=== PATIENT | female | born 1945 | race Caucasian/White ===

== ENCOUNTER → 2023-03-13 | Outpatient (REF) | payer MEDICARE, BC, SELFPAY ==
[2023-03-13 09:17] LABS: Hematocrit 35.6 % (37-47); Hemoglobin 11.3 g/dL (12.0-15.0); Mean Corp Hgb Conc 31.7 g/dL (32-36); Mean Corpuscular Hgb 30.3 pg (27.0-32.0); Mean Corpuscular Volume 95.4 fL (81-99); Mean Platelet Vol. 9.8 fl (6.2-12.0); Platelet Count 151 K/mm3 (150-450); RBC Distribution Width SD 49.2 fl (35.1-43.9); Red Blood Count 3.73 M/mm3 (4.2-5.4); White Blood Count 5.1 K/mm3 (4.4-11.0)
[2023-03-13 09:27] LABS: Anion Gap 4 (5-15); BUN 36 mg/dL (7-18); BUN/Creat Ratio 31.3 RATIO (10-20); Calcium,Total 8.9 mg/dL (8.5-10.1); Chloride 109 mmol/L (98-107); Creatinine, Serum 1.15 mg/dL (0.55-1.02); EST Glomerular Filtration Rate 48 mL/min (>60); Est Glom Filt Rate - Afr Amer 58 mL/min (>60); Glucose 96 mg/dL (74-106); Potassium 3.3 mmol/L (3.5-5.1); Sodium Level 143 mmol/L (136-145)
== END ==
LOC: OLS.SANC 04:00
PROVIDERS: PCP Internal Medicine; Referring Provider Internal Medicine; Visit Provider Internal Medicine
DX: I10 Essential (primary) hypertension (principal); E78.5 Hyperlipidemia, unspecified
CPT/HCPCS: 36415; 80048; 85027

== ENCOUNTER → 2023-03-20 | Outpatient (REF) | payer MEDICARE, BC, SELFPAY ==
[2023-03-20 09:37] LABS: Hematocrit 34.8 % (37-47); Hemoglobin 11.2 g/dL (12.0-15.0); Mean Corp Hgb Conc 32.2 g/dL (32-36); Mean Corpuscular Hgb 30.9 pg (27.0-32.0); Mean Corpuscular Volume 95.9 fL (81-99); Mean Platelet Vol. 9.5 fl (6.2-12.0); Platelet Count 157 K/mm3 (150-450); RBC Distribution Width CV 13.9 % (11.6-14.6); RBC Distribution Width SD 49.2 fl (35.1-43.9); Red Blood Count 3.63 M/mm3 (4.2-5.4); White Blood Count 4.9 K/mm3 (4.4-11.0)
[2023-03-20 09:56] LABS: Anion Gap 2 (5-15); BUN 27 mg/dL (7-18); BUN/Creat Ratio 24.5 RATIO (10-20); Chloride 110 mmol/L (98-107); EST Glomerular Filtration Rate 51 mL/min (>60); Est Glom Filt Rate - Afr Amer 61 mL/min (>60); Glucose 83 mg/dL (74-106); Potassium 3.4 mmol/L (3.5-5.1); Sodium Level 142 mmol/L (136-145)
== END ==
LOC: OLS.SANC 05:00
PROVIDERS: Visit Provider Internal Medicine
DX: I10 Essential (primary) hypertension (principal); E87.6 Hypokalemia
CPT/HCPCS: 36415; 80048; 85027

== ENCOUNTER → 2023-03-27 | Outpatient (REF) | payer MEDICARE, BC, SELFPAY ==
[2023-03-27 08:53] LABS: Hematocrit 35.4 % (37-47); Hemoglobin 11.4 g/dL (12.0-15.0); Mean Corp Hgb Conc 32.2 g/dL (32-36); Mean Corpuscular Hgb 31.1 pg (27.0-32.0); Mean Corpuscular Volume 96.7 fL (81-99); Mean Platelet Vol. 9.7 fl (6.2-12.0); Platelet Count 162 K/mm3 (150-450); RBC Distribution Width SD 49.5 fl (35.1-43.9); Red Blood Count 3.66 M/mm3 (4.2-5.4); White Blood Count 4.9 K/mm3 (4.4-11.0)
[2023-03-27 09:04] LABS: Anion Gap 1 (5-15); BUN 22 mg/dL (7-18); BUN/Creat Ratio 21.8 RATIO (10-20); Calcium,Total 8.9 mg/dL (8.5-10.1); Chloride 110 mmol/L (98-107); Creatinine, Serum 1.01 mg/dL (0.55-1.02); EST Glomerular Filtration Rate 56 mL/min (>60); Est Glom Filt Rate - Afr Amer 68 mL/min (>60); Glucose 88 mg/dL (74-106); Potassium 3.4 mmol/L (3.5-5.1); Sodium Level 143 mmol/L (136-145)
== END ==
LOC: OLS.SANC 05:00
PROVIDERS: Visit Provider Internal Medicine
DX: I10 Essential (primary) hypertension (principal); E78.5 Hyperlipidemia, unspecified; Z79.899 Other long term (current) drug therapy
CPT/HCPCS: 36415; 80048; 85027

== ENCOUNTER → 2023-03-31 | Outpatient (REF) | payer MEDICARE, BC, SELFPAY ==
[2023-03-31 09:10] LABS: Color, Urine Yellow (Yellow); Glucose, Dipstick Normal (Normal); Ketone-Dipstick Negative (Negative); Leukocyte Esterase-Dipstick 100 /ul (Negative); Nitrite-Dipstick Positive (Negative); Occult Blood-Urine Negative /ul (Negative); Protein-Dipstick Negative (Negative); Urine Bilirubin Dipstick Negative (Negative); Urine Clarity Clear (Clear); Urine Urobilinogen Normal (Normal)
== END ==
LOC: OLS.SANC 08:55
PROVIDERS: Referring Provider Internal Medicine; Visit Provider Internal Medicine
DX: R39.9 Unspecified symptoms and signs involving the genitourinary system (principal)
CPT/HCPCS: 81002; 87077; 87086; 87088; 87186

== ENCOUNTER → 2023-04-16 | Outpatient (REF) | payer MEDICARE, BC, SELFPAY ==
[2023-04-16 08:50] LABS: Bacteria 0 SEEN /hpf (None Seen); Mucous, Urine 0 SEEN /hpf (<or=2+); Red Blood Cells-Urine 0 SEEN /hpf (0-5); Squamous Epithelial Cells - UA 0 SEEN /hpf (5-10); White Blood Cells 0 SEEN /hpf (0-5)
[2023-04-16 09:06] LABS: Color, Urine Yellow (Yellow); Glucose, Dipstick Normal (Normal); Ketone-Dipstick Negative (Negative); Leukocyte Esterase-Dipstick Negative /ul (Negative); Nitrite-Dipstick Negative (Negative); Occult Blood-Urine Negative /ul (Negative); Protein-Dipstick Negative (Negative); Urine Bilirubin Dipstick Negative (Negative); Urine Clarity Clear (Clear); Urine Urobilinogen Normal (Normal)
== END ==
LOC: OLS.SANC 05:00
PROVIDERS: Visit Provider Internal Medicine
DX: R39.9 Unspecified symptoms and signs involving the genitourinary system (principal)
CPT/HCPCS: 81001; 87086

== ENCOUNTER → 2023-06-26 | Outpatient (REF) | payer MEDICARE, BC, SELFPAY ==
[2023-06-26 08:42] LABS: Hematocrit 34.4 % (37-47); Hemoglobin 11.1 g/dL (12.0-15.0); Mean Corp Hgb Conc 32.3 g/dL (32-36); Mean Corpuscular Hgb 30.1 pg (27.0-32.0); Mean Corpuscular Volume 93.2 fL (81-99); Mean Platelet Vol. 9.8 fl (6.2-12.0); Platelet Count 175 K/mm3 (150-450); RBC Distribution Width CV 13.5 % (11.6-14.6); Red Blood Count 3.69 M/mm3 (4.2-5.4); White Blood Count 5.7 K/mm3 (4.4-11.0)
[2023-06-26 08:56] LABS: Anion Gap 3 (5-15); BUN 30 mg/dL (7-18); BUN/Creat Ratio 28.3 RATIO (10-20); Calcium,Total 8.9 mg/dL (8.5-10.1); Chloride 110 mmol/L (98-107); Creatinine, Serum 1.06 mg/dL (0.55-1.02); EST Glomerular Filtration Rate 53 mL/min (>60); Est Glom Filt Rate - Afr Amer 64 mL/min (>60); Glucose 89 mg/dL (74-106); Potassium 3.4 mmol/L (3.5-5.1); Sodium Level 143 mmol/L (136-145)
== END ==
LOC: OLS.SANC 05:00
PROVIDERS: Visit Provider Internal Medicine
DX: I10 Essential (primary) hypertension (principal); E78.5 Hyperlipidemia, unspecified
CPT/HCPCS: 36415; 80048; 85027

== ENCOUNTER → 2023-07-02 | Outpatient (REF) | payer MEDICARE, BC, SELFPAY ==
[2023-07-03 07:25] LABS: Color, Urine Yellow (Yellow); Glucose, Dipstick Normal (Normal); Ketone-Dipstick Negative (Negative); Leukocyte Esterase-Dipstick 500 /ul (Negative); Nitrite-Dipstick Negative (Negative); Occult Blood-Urine 10 /ul (Negative); Protein-Dipstick Negative (Negative); Specific Gravity, Urine 1.015 (1.002-1.030); Urine Bilirubin Dipstick Negative (Negative); Urine Clarity Sl. Cloudy (Clear); Urine Urobilinogen Normal (Normal)
== END ==
LOC: OLS.SANC 07:20
PROVIDERS: Visit Provider Internal Medicine
DX: R39.0 Extravasation of urine (principal)
CPT/HCPCS: 81002; 87077; 87086; 87088; 87186

== ENCOUNTER → 2023-10-24 | Outpatient (REF) | payer MEDICARE, SELFPAY ==
[2023-10-24 08:12] LABS: Hematocrit 38.4 % (37-47); Hemoglobin 12.2 g/dL (12.0-15.0); Mean Corp Hgb Conc 31.8 g/dL (32-36); Mean Corpuscular Volume 94.3 fL (81-99); Mean Platelet Vol. 9.6 fl (6.2-12.0); Platelet Count 177 K/mm3 (150-450); RBC Distribution Width CV 13.3 % (11.6-14.6); RBC Distribution Width SD 45.6 fl (35.1-43.9); Red Blood Count 4.07 M/mm3 (4.2-5.4); White Blood Count 4.9 K/mm3 (4.4-11.0)
[2023-10-24 08:39] LABS: Anion Gap 4 (5-15); BUN 32 mg/dL (7-18); BUN/Creat Ratio 33.9 RATIO (10-20); Chloride 108 mmol/L (98-107); Creatinine, Serum 0.94 mg/dL (0.55-1.02); EST Glomerular Filtration Rate 60 mL/min (>60); Est Glom Filt Rate - Afr Amer 73 mL/min (>60); Glucose 92 mg/dL (74-106); Potassium 3.4 mmol/L (3.5-5.1); Sodium Level 143 mmol/L (136-145)
== END ==
LOC: OLS.SANC 05:00
PROVIDERS: Visit Provider Internal Medicine
DX: I10 Essential (primary) hypertension (principal); E78.5 Hyperlipidemia, unspecified
CPT/HCPCS: 36415; 80048; 85027

== ENCOUNTER → 2023-11-07 | Outpatient (REF) | payer MEDICARE, BC, SELFPAY ==
[2023-11-07 07:39] LABS: Mucous, Urine 0 SEEN /hpf (<or=2+); Red Blood Cells-Urine 0 SEEN /hpf (0-5); Squamous Epithelial Cells - UA 0 SEEN /hpf (5-10)
[2023-11-07 07:43] LABS: Color, Urine Yellow (Yellow); Glucose, Dipstick Normal (Normal); Ketone-Dipstick Negative (Negative); Leukocyte Esterase-Dipstick 25 /ul (Negative); Nitrite-Dipstick Negative (Negative); Occult Blood-Urine Negative /ul (Negative); Protein-Dipstick Negative (Negative); Urine Bilirubin Dipstick Negative (Negative); Urine Clarity Clear (Clear); Urine Urobilinogen Normal (Normal)
[2023-11-07 07:55] LABS: Bacteria RARE /hpf (None Seen); White Blood Cells 0-5 SEEN /hpf (0-5)
== END ==
LOC: OLS.SANC 05:00
PROVIDERS: Visit Provider Internal Medicine
DX: N39.0 Urinary tract infection, site not specified (principal)
CPT/HCPCS: 81001

== ENCOUNTER → 2023-11-28 | Outpatient (REF) | payer MEDICARE, SELFPAY ==
[2023-11-28 08:47] LABS: Hemoglobin 11.5 g/dL (12.0-15.0); Mean Corp Hgb Conc 31.9 g/dL (32-36); Mean Corpuscular Hgb 30.3 pg (27.0-32.0); Mean Corpuscular Volume 94.7 fL (81-99); Mean Platelet Vol. 9.8 fl (6.2-12.0); Platelet Count 164 K/mm3 (150-450); RBC Distribution Width CV 13.7 % (11.6-14.6); RBC Distribution Width SD 47.3 fl (35.1-43.9); White Blood Count 5.3 K/mm3 (4.4-11.0)
[2023-11-28 09:38] LABS: Anion Gap 5 (5-15); BUN 31 mg/dL (7-18); BUN/Creat Ratio 29.5 RATIO (10-20); Calcium,Total 8.6 mg/dL (8.5-10.1); Chloride 110 mmol/L (98-107); Creatinine, Serum 1.05 mg/dL (0.55-1.02); EST Glomerular Filtration Rate 54 mL/min (>60); Est Glom Filt Rate - Afr Amer 65 mL/min (>60); Glucose 93 mg/dL (74-106); Potassium 3.5 mmol/L (3.5-5.1); Sodium Level 143 mmol/L (136-145)
== END ==
LOC: OLS.SANC 05:00
PROVIDERS: Visit Provider Internal Medicine
DX: I10 Essential (primary) hypertension (principal); E78.5 Hyperlipidemia, unspecified
CPT/HCPCS: 36415; 80048; 85027

== ENCOUNTER → 2024-01-09 05:00 | Outpatient (REF) | payer MEDICARE, SELFPAY ==
[2024-01-09 08:29] LABS: Hematocrit 38.2 % (37-47); Mean Corp Hgb Conc 31.4 g/dL (32-36); Mean Corpuscular Hgb 29.4 pg (27.0-32.0); Mean Corpuscular Volume 93.6 fL (81-99); Platelet Count 156 K/mm3 (150-450); RBC Distribution Width CV 13.6 % (11.6-14.6); RBC Distribution Width SD 47.1 fl (35.1-43.9); Red Blood Count 4.08 M/mm3 (4.2-5.4); White Blood Count 5.5 K/mm3 (4.4-11.0)
[2024-01-09 08:43] LABS: Anion Gap 5 (5-15); BUN 30 mg/dL (7-18); BUN/Creat Ratio 29.7 RATIO (10-20); Calcium,Total 8.9 mg/dL (8.5-10.1); Chloride 110 mmol/L (98-107); Creatinine, Serum 1.01 mg/dL (0.55-1.02); EST Glomerular Filtration Rate 56 mL/min (>60); Est Glom Filt Rate - Afr Amer 68 mL/min (>60); Glucose 89 mg/dL (74-106); Potassium 3.5 mmol/L (3.5-5.1); Sodium Level 143 mmol/L (136-145)
== END ==
LOC: OLS.SANC 05:00
PROVIDERS: Referring Provider Internal Medicine; Visit Provider Internal Medicine
DX: I10 Essential (primary) hypertension (principal); E78.5 Hyperlipidemia, unspecified
CPT/HCPCS: 36415; 80048; 85027

== ENCOUNTER → 2024-02-23 | Outpatient (REF) | payer MEDICARE, SELFPAY ==
[2024-02-24 11:59] LABS: Hematocrit 39.4 % (37-47); Hemoglobin 12.7 g/dL (12.0-15.0); Mean Corpuscular Volume 95.4 fL (81-99); Red Blood Count 4.13 M/mm3 (4.2-5.4); White Blood Count 5.8 K/mm3 (4.4-11.0)
[2024-02-24 12:00] LABS: Mean Corp Hgb Conc 32.2 g/dL (32-36); Mean Corpuscular Hgb 30.8 pg (27.0-32.0); Mean Platelet Vol. 9.2 fl (6.2-12.0); Platelet Count 256 K/mm3 (150-450); RBC Distribution Width CV 13.5 % (11.6-14.6); RBC Distribution Width SD 47.5 fl (35.1-43.9)
[2024-02-24 12:04] LABS: BUN 27 mg/dL (7-18); Glucose 95 mg/dL (74-106)
[2024-02-24 12:05] LABS: BUN/Creat Ratio 24.8 RATIO (10-20); Calcium,Total 8.9 mg/dL (8.5-10.1); Creatinine, Serum 1.09 mg/dL (0.55-1.02); EST Glomerular Filtration Rate 51 mL/min (>60); Est Glom Filt Rate - Afr Amer 62 mL/min (>60); Sodium Level 142 mmol/L (136-145)
[2024-02-24 12:06] LABS: Anion Gap 3 (5-15); Chloride 110 mmol/L (98-107); Potassium 3.7 mmol/L (3.5-5.1)
== END ==
LOC: OLS.SANC 05:00
PROVIDERS: Visit Provider Internal Medicine
DX: F03.90 Unspecified dementia, unspecified severity, without behavioral disturbance, psychotic disturbance, mood disturbance, and anxiety (principal); I10 Essential (primary) hypertension; E78.5 Hyperlipidemia, unspecified
CPT/HCPCS: 36415; 80048; 85027

== ENCOUNTER → 2024-02-27 02:50 | Outpatient (REF) | payer MEDICARE, SELFPAY ==
[2024-02-27 07:25] LABS: Bacteria 0 SEEN /hpf (None Seen); Mucous, Urine 0 SEEN /hpf (<or=2+); Red Blood Cells-Urine 0 SEEN /hpf (0-5); Squamous Epithelial Cells - UA 0 SEEN /hpf (5-10)
[2024-02-27 07:29] LABS: Color, Urine Yellow (Yellow); Glucose, Dipstick Normal (Normal); Ketone-Dipstick Negative (Negative); Leukocyte Esterase-Dipstick 100 /ul (Negative); Nitrite-Dipstick Negative (Negative); Occult Blood-Urine Negative /ul (Negative); Protein-Dipstick Negative (Negative); Urine Bilirubin Dipstick Negative (Negative); Urine Clarity Clear (Clear); Urine Urobilinogen Normal (Normal)
[2024-02-27 07:55] LABS: White Blood Cells 0-5 SEEN /hpf (0-5)
== END ==
LOC: OLS.SANC 02:50
PROVIDERS: Visit Provider Internal Medicine
DX: R39.9 Unspecified symptoms and signs involving the genitourinary system (principal)
CPT/HCPCS: 81001; 87077; 87086; 87088; 87186

== ENCOUNTER → 2024-03-23 | Outpatient (REF) | payer MEDICARE, SELFPAY ==
[2024-03-23 09:03] LABS: Cholesterol 112 mg/dL (200); High Density Lipoprotein 50 mg/dL; Triglycerides 46 mg/dL; Very Low Density Lipoprotein 9 mg/dL (5-40)
== END ==
LOC: OLS.SANC 05:00
PROVIDERS: Visit Provider Internal Medicine
DX: I10 Essential (primary) hypertension (principal); E78.5 Hyperlipidemia, unspecified
CPT/HCPCS: 36415; 80061

== ENCOUNTER → 2024-04-13 | Outpatient (REF) | payer MEDICARE, SELFPAY ==
[2024-04-13 09:06] LABS: Hematocrit 36.1 % (37-47); Hemoglobin 11.4 g/dL (12.0-15.0); Mean Corp Hgb Conc 31.6 g/dL (32-36); Mean Corpuscular Hgb 29.8 pg (27.0-32.0); Mean Corpuscular Volume 94.5 fL (81-99); Mean Platelet Vol. 10.2 fl (6.2-12.0); Platelet Count 154 K/mm3 (150-450); RBC Distribution Width CV 13.8 % (11.6-14.6); RBC Distribution Width SD 47.7 fl (35.1-43.9); Red Blood Count 3.82 M/mm3 (4.2-5.4); White Blood Count 5.1 K/mm3 (4.4-11.0)
[2024-04-13 09:49] LABS: Anion Gap 6 (5-15); BUN 25 mg/dL (7-18); BUN/Creat Ratio 25.2 RATIO (10-20); Calcium,Total 8.6 mg/dL (8.5-10.1); Chloride 112 mmol/L (98-107); Creatinine, Serum 0.99 mg/dL (0.55-1.02); EST Glomerular Filtration Rate 57 mL/min (>60); Est Glom Filt Rate - Afr Amer 69 mL/min (>60); Glucose 97 mg/dL (74-106); Potassium 3.4 mmol/L (3.5-5.1); Sodium Level 145 mmol/L (136-145)
== END ==
LOC: OLS.SANC 05:00
PROVIDERS: Visit Provider Internal Medicine
DX: I10 Essential (primary) hypertension (principal); E78.5 Hyperlipidemia, unspecified
CPT/HCPCS: 36415; 80048; 85027

== ENCOUNTER → 2024-06-02 05:00 | Outpatient (REF) | payer MEDICARE, SELFPAY ==
[2024-06-02 08:02] LABS: Anion Gap 2 (5-15); BUN 26 mg/dL (7-18); BUN/Creat Ratio 25.5 RATIO (10-20); Calcium,Total 8.2 mg/dL (8.5-10.1); Chloride 113 mmol/L (98-107); Creatinine, Serum 1.02 mg/dL (0.55-1.02); EST Glomerular Filtration Rate 55 mL/min (>60); Est Glom Filt Rate - Afr Amer 67 mL/min (>60); Glucose 94 mg/dL (74-106); Potassium 3.5 mmol/L (3.5-5.1); Sodium Level 143 mmol/L (136-145)
== END ==
LOC: OLS.SANC 05:00
DX: Z79.899 Other long term (current) drug therapy (principal)
CPT/HCPCS: 36415; 80048

== ENCOUNTER → 2024-08-04 | Outpatient (REF) | payer MEDICARE, BC, SELFPAY ==
[2024-08-04 07:40] LABS: Anion Gap 9 (5-15); BUN 25 mg/dL (7-18); Calcium,Total 8.6 mg/dL (8.5-10.1); Chloride 111 mmol/L (98-107); Creatinine, Serum 0.96 mg/dL (0.55-1.02); EST Glomerular Filtration Rate 59 mL/min (>60); Est Glom Filt Rate - Afr Amer 72 mL/min (>60); Glucose 104 mg/dL (74-106); Potassium 3.7 mmol/L (3.5-5.1); Sodium Level 142 mmol/L (136-145)
== END ==
LOC: OLS.SANC 05:00
PROVIDERS: Visit Provider Internal Medicine
DX: I12.9 Hypertensive chronic kidney disease with stage 1 through stage 4 chronic kidney disease, or unspecified chronic kidney disease (principal); E78.5 Hyperlipidemia, unspecified; N18.31 Chronic kidney disease, stage 3a
CPT/HCPCS: 36415; 80048

== ENCOUNTER → 2024-09-07 | Outpatient (REF) | payer MEDICARE, BC, SELFPAY ==
[2024-09-07 10:41] LABS: Hemoglobin A1c 5.9 % (<=5.6)
== END ==
LOC: OLS.SANC 05:00
DX: E11.9 Type 2 diabetes mellitus without complications (principal); E78.5 Hyperlipidemia, unspecified; I10 Essential (primary) hypertension
CPT/HCPCS: 36415; 83036

== ENCOUNTER → 2024-10-01 | Outpatient (REF) | payer MEDICARE, BC, SELFPAY ==
[2024-10-01 08:51] LABS: BUN 22 mg/dL (4-19); BUN/Creat Ratio 19.2 RATIO (10-20); Carbon Dioxide 25.7 mmol/L (21.0-32.0); Creatinine, Serum 1.16 mg/dL (0.70-1.20); EST Glomerular Filtration Rate 47 (>60); Glucose 99 mg/dL (70-99); Potassium 3.4 mmol/L (3.3-5.1); Sodium Level 142 mmol/L (133-145)
[2024-10-01 08:56] LABS: Anion Gap 11 (5-15); Chloride 106 mmol/L (98-108)
== END ==
LOC: OLS.SANC 05:00
DX: I12.9 Hypertensive chronic kidney disease with stage 1 through stage 4 chronic kidney disease, or unspecified chronic kidney disease (principal); N18.31 Chronic kidney disease, stage 3a; E78.5 Hyperlipidemia, unspecified
CPT/HCPCS: 36415; 80048

== ENCOUNTER → 2024-10-06 | Outpatient (REF) | payer MEDICARE, BC, SELFPAY ==
[2024-10-06 10:12] LABS: Anion Gap 11 (5-15); BUN 19 mg/dL (4-19); BUN/Creat Ratio 17.3 RATIO (10-20); Calcium,Total 9.1 mg/dL (7.6-11.0); Carbon Dioxide 26.3 mmol/L (21.0-32.0); Chloride 104 mmol/L (98-108); Creatinine, Serum 1.08 mg/dL (0.70-1.20); EST Glomerular Filtration Rate 52 (>60); Glucose 102 mg/dL (70-99); Potassium 3.2 mmol/L (3.3-5.1); Sodium Level 141 mmol/L (133-145)
== END ==
LOC: OLS.SANC 05:00
DX: Z00.00 Encounter for general adult medical examination without abnormal findings (principal)
CPT/HCPCS: 36415; 80048

== ENCOUNTER → 2024-10-27 | Outpatient (REF) | payer MEDICARE, BC, SELFPAY ==
[2024-10-27 09:32] LABS: Anion Gap 9 (5-15); BUN 35 mg/dL (4-19); BUN/Creat Ratio 22.6 RATIO (10-20); Calcium,Total 9.4 mg/dL (7.6-11.0); Carbon Dioxide 32.3 mmol/L (21.0-32.0); Chloride 99 mmol/L (98-108); Creatinine, Serum 1.56 mg/dL (0.70-1.20); EST Glomerular Filtration Rate 33 (>60); Glucose 103 mg/dL (70-99); Potassium 2.9 mmol/L (3.3-5.1); Sodium Level 141 mmol/L (133-145)
== END ==
LOC: OLS.SANC 05:00
DX: I50.9 Heart failure, unspecified (principal); R41.89 Other symptoms and signs involving cognitive functions and awareness
CPT/HCPCS: 36415; 80048

== ENCOUNTER → 2024-11-01 | Outpatient (REF) | payer MEDICARE, BC, SELFPAY ==
[2024-11-01 09:50] LABS: Anion Gap 10 (5-15); BUN 33 mg/dL (4-19); BUN/Creat Ratio 25.1 RATIO (10-20); Calcium,Total 8.9 mg/dL (7.6-11.0); Carbon Dioxide 25.8 mmol/L (21.0-32.0); Chloride 105 mmol/L (98-108); Creatinine, Serum 1.32 mg/dL (0.70-1.20); EST Glomerular Filtration Rate 41 (>60); Glucose 110 mg/dL (70-99); Potassium 3.5 mmol/L (3.3-5.1); Sodium Level 141 mmol/L (133-145)
== END ==
LOC: OLS.SANC 05:00
PROVIDERS: Visit Provider Internal Medicine
DX: I10 Essential (primary) hypertension (principal); E78.5 Hyperlipidemia, unspecified; E03.9 Hypothyroidism, unspecified
CPT/HCPCS: 36415; 80048

== ENCOUNTER → 2024-11-08 | Outpatient (REF) | payer MEDICARE, BC, SELFPAY ==
[2024-11-08 10:03] LABS: Anion Gap 8 (5-15); BUN 22 mg/dL (4-19); BUN/Creat Ratio 19.5 RATIO (10-20); Calcium,Total 8.9 mg/dL (7.6-11.0); Chloride 109 mmol/L (98-108); Creatinine, Serum 1.13 mg/dL (0.70-1.20); EST Glomerular Filtration Rate 49 (>60); Glucose 88 mg/dL (70-99); Potassium 3.8 mmol/L (3.3-5.1); Sodium Level 142 mmol/L (133-145)
== END ==
LOC: OLS.SANC 04:00
DX: I10 Essential (primary) hypertension (principal); E78.5 Hyperlipidemia, unspecified
CPT/HCPCS: 36415; 80048

== ENCOUNTER → 2024-11-12 05:00 | Outpatient (REF) | payer MEDICARE, BC, SELFPAY ==
[2024-11-12 08:03] LABS: Anion Gap 6 (5-15); BUN 22 mg/dL (4-19); BUN/Creat Ratio 19.2 RATIO (10-20); Calcium,Total 8.8 mg/dL (7.6-11.0); Carbon Dioxide 25.3 mmol/L (21.0-32.0); Chloride 111 mmol/L (98-108); Creatinine, Serum 1.14 mg/dL (0.70-1.20); EST Glomerular Filtration Rate 48 (>60); Glucose 89 mg/dL (70-99); Potassium 3.9 mmol/L (3.3-5.1); Sodium Level 142 mmol/L (133-145)
== END ==
LOC: OLS.SANC 05:00
DX: I10 Essential (primary) hypertension (principal); E78.5 Hyperlipidemia, unspecified
CPT/HCPCS: 36415; 80048

== ENCOUNTER → 2024-12-08 04:00 | Outpatient (REF) | payer MEDICARE, BC, SELFPAY ==
--- OUTSIDE RECORDS SUMMARY | 2024-12-08 04:11 | XMS RPT_ITS | CCD ---
Author Organization [facility] Care Team Providers Care Dam Worker Name Role Phone Evin Garcia MD Primary Care Provider EVIN GARCIA Primary Care Unavailabl e EVIN GARCIA Referring Unavailabl e VINAY, LASHANDA Attending Unavailable VINAY, LASHANDA Attending Unavailable EVIN GARCIA Primary Care Unavailabl e VINAY, LASHANDA Attending Unavailable EVIN GARCIA Primary Care Unavailabl e VINAY, LASHANDA Attending Unavailable EVIN GARCIA Primary Care Unavailabl e EVIN GARCIA Primary Care Unavailabl e VINAY, LASHANDA Attending Unavailable Evin Garcia MD Primary Care Provider EVIN GARCIA Primary Care UnavailAPURVA Bojorquez Attending Unavailable EVIN GARCIA Primary Care Unavailabl e APURVA BRUNO Attending Unavailable [facility] [place] Attending Provider Marcos Reddy Attending Provider Unavailab le Katsaros KENN, Marcos Attending Provider Unavailab le [facility] [place] Attending Provider [phone] Lashanda Stone MD Attending Provider Unava ilable Bertha HAWK, Lashanda Attending Unavail able [facility] [place] Attending Elizabethvai Marcos Tilley Attending Unavailable Stephanie HAWK, Marcos Attending Unavailable Stephanie HAWK, Marcos Attending Unavailable Stephanie HAWK, Marcos Attending Unavailable Marcos Reddy Referring Unavailable Marcos Reddy Attending Unavailable Lashanda Covarrubias Attending Unavail able Lashanda Covarrubias Referring Unavail able Stephanie HAWK, Marcos Attending Unavailable Lashanda Covarrubias Attending Unavail able Lashanda Covarrubias Attending Unavail able Lashanda Covarrubias Attending [facility] Marcos Melendez Attending Unavailable Allergies Allergy Classification Reported Allergen(s) Allergy Type Date of Onset Reaction(s) Facility (18 sources) Sulfonamides (Antibiotic); Translations: [SULFA (SULFONAMIDE ANTIBIOTICS)] Drug Allergy 3 Mental Status Change [facility] (17 sources) Amoxicillin; Translations: [AMOXICILLIN] Drug Allergy 3 Other: See Comments [facility] (17 sources) Ciprofloxacin; Translations: [CIPROFLOXACIN] Drug Allergy 3 Mental Status Change [facility] Medications Current Medications Medication Drug Class(es) Dates Sig (Normalized) Sig (Original) acetaminophen 325 mg oral tablet (9 sources) Start: 12-07-2022 take 2 tablets by mouth every six hours as needed acetaminophen (TYLENOL) 325 mg tablet Take 650 mg by mouth every 6 hours as needed. 12/07/2022 Active Comment on above: Take 650 mg by mouth every 6 hours as needed. aspirin 81 mg chewable tablet (16 sources) Platelet Aggregation Inhibitor, Nonsteroidal Anti-inflammatory Drug Start: 11-16-2022 take 1 tablet by mouth once daily aspirin 81 mg chewable tablet 1 tablet by ORAL/FEEDING TUBE route once daily. 90 tablet 11/16/2022 Active Start: 11-16-2022 End: 02-14-2023 take 1 tablet by mouth once daily aspirin 81 mg chewable tablet 1 tablet by ORAL/FEEDING TUBE route once daily. 90 tablet 0 11/16/2022 Active Comment on above: 1 tablet by ORAL/FEE DING TUBE route once daily. atorvastatin 40 mg oral tablet (16 sources) HMG-CoA Reductase Inhibitor Start: 11-17-19 take 1 tablet by mouth once daily at bedtime atorvastatin (LIPITOR) 40 mg tablet 1 tablet by ORAL/FEEDING TUBE route daily at bedtime. 90 tablet 11/16/2022 Active Start: 11-16-2022 End: 02-14-2023 take 1 tablet by mouth once daily at bedtime atorvastatin (LIPITOR) 40 mg tablet 1 tablet by ORAL/FEEDING TUBE route daily at bedtime. 90 tablet 0 11/16/2022 Active Comment on above: 1 tablet by ORAL/FEE DING TUBE route daily at bedtime. bisacodyl 10 mg rectal suppository (3 sources) Stimulant Laxative take 10 mg rectal route once daily as needed for constipation bisacodyl (DULCOLAX, BISACODYL,) 10 mg supp 10 mg by RECTAL route once daily as needed for constipation. Active chlorthalidone 25 mg oral tablet (9 sources) Thiazide-like Diuretic Start: chlorthalidone (HYGROTON) 25 mg tablet 01/06/2023 Active guaiFENesin 20 mg/ml oral solution (10 sources) Start: MUCUS-CHEST CONGESTION 100 mg/5 mL syrup 01/21/2023 Active inulin 200 mg / lactobacillus rhamnosus gg [id number] unt oral capsule (9 sources) Start: CULTURELLE DIGESTIVE HEALTH 10 billion cell -200 mg capsule 01/06/2023 Active lactobacillus rhamnosus gg [id number] unt oral capsule (16 sources) Start: take 1 capsule by mouth once daily lactobacillus rhamnosus (CULTURELLE) 10 billion cell capsule Take 1 capsule by mouth once daily. 11/17/2022 Active Comment on above: Take 1 capsule by [facility] once daily. losartan potassium 50 mg oral tablet (15 sources) Angiotensin 2 Receptor Navid take 1 tablet by mouth once daily losartan (COZAAR) 50 mg tablet Take 50 mg by mouth once daily. Active Comment on above: Take 50 mg by mouth once daily. Magnesium Hydroxide (15 sources) magnesium hydrox aliza (EX-LAX MILK OF MAGNESIA ORAL) Take by mouth. Active magnesium hydrox aliza (EX-LAX MILK OF MAGNESIA ORAL) Take by mouth. 0 Active Comment on above: Take by mouth. mirtazapine 15 mg oral tablet (15 sources) take 1 tablet by mouth once daily at bedtime mirtazapine (REMERON) 15 mg tablet Take 15 mg by mouth daily at bedtime. Active Comment on above: Take 15 mg by mouth daily at bedtime. nitrofurantoin, macrocrystals 25 mg / nitrofurantoin, monohydrate 75 mg oral capsule (3 sources) Nitrofuran Antibacterial Start: End: take 1 capsule by mouth twice daily nitrofurantoin monohydrate and macrocrystal (MACROBID) 100 mg capsule Take 1 capsule by mouth twice daily for 10 days. 20 capsule 0 12/20/2022 12/30/2022 Active Comment on above: Take 1 capsule by [facility] twice daily for 10 days. polyethylene glycol 3350 46339 mg powder for oral solution (9 sources) Osmotic Laxative Start: 023 take 17 g by mouth every twenty-four hours as needed polyethylene glycol 3350 17 gram/dose powder Take 17 g by mouth at bedtime as needed. 12/07/2022 Active Comment on above: Take 17 g by mouth a t bedtime as needed. microencapsulated potassium chloride 10 meq extended release oral tablet (3 sources) potassium chlori de ER (KLOR-CON M10) 10 mEq tablet Take 10 mEq by mouth two times a day. Active SACCHAROMYCES BOULARDII-FOS ORAL (4 sources) SACCHAROMYCES BOULARDII-FOS ORAL Take by mouth. Active SACCHAROMYCES TEE ULARDII-FOS ORAL Take by mouth. 0 Active Comment on above: Take by mouth. Completed/Discontinued Medications Medication Drug Class(es) Dates Sig (Normalized) Sig (Original) amLODIPine 10 mg oral tablet (12 sources) Dihydropyridine Calcium Channel Navid Start: 11-17-2022 End: 02-13-2023 take 1 tablet by mouth once daily amLODIPine (NORVASC) 10 mg tablet 1 tablet by ORAL/FEEDING TUBE route once daily. 30 tablet 0 11/17/2022 02/13/2023 Discontinued (Course of therapy completed) Comment on above: 1 tablet by ORAL/FEE DING TUBE route once daily. cefdinir 300 mg oral capsule (4 sources) Cephalosporin Antibacterial Start: 01-16-2023 End: 04-14-2023 cefdinir (OMNICEF) 300 mg capsule clopidogrel 75 mg oral tablet (13 sources) P2Y12 Platelet Inhibitor Start: 11-16-2022 End: 04-14-2023 take 1 tablet by mouth once daily clopidogrel (PLAVIX) 75 mg tablet 1 tablet by ORAL/FEEDING TUBE route once daily for 88 doses. 88 tablet 0 11/16/2022 04/14/2023 Discontinued (Course of therapy completed) Start: 11-16-2022 End: 02-12-2023 take 1 tablet by mouth once daily clopidogrel (PLAVIX) 75 mg tablet 1 tablet by ORAL/FEEDING TUBE route once daily for 88 doses. 88 tablet 0 11/16/2022 Active Comment on above: 1 tablet by ORAL/FEE DING TUBE route once daily for 88 doses. docusate sodium 50 mg / sennosides, correction 8.6 mg oral tablet (13 sources) Start: 3 End: 3 take 1 tablet by mouth twice daily senna-docusate (SENNA-S) 8.6-50 mg per tablet 1 tablet by ORAL/FEEDING TUBE route twice daily. 0 11/16/2022 04/14/2023 Discontinued (Course of therapy completed) Start: 11-16-2022 take 1 tablet by donald th twice daily senna-docusate (SENNA-S) 8.6-50 mg per tablet 1 tablet by ORAL/FEEDING TUBE route twice daily. 0 11/16/2022 Active Comment on above: 1 tablet by ORAL/FEE DING TUBE route twice daily. hydrALAZINE hydrochloride 50 mg oral tablet (12 sources) Arteriolar Vasodilator Start: 11-17-19 End: 02-14-20 take 1 tablet by mouth every eight hours hydrALAZINE (APRESOLINE) 50 mg tablet Take 1 tablet by mouth every 8 hours. 0 11/16/2022 02/13/2023 Discontinued (Course of therapy completed) Comment on above: Take 1 tablet by donald th every 8 hours. Problems Active Problems Problem Classification Problem Date Documented Da te Episodic/Chronic Acute cerebrovascular disease (20 sources) Ischemic stroke; Translations: [Cerebral infarction, unspecified] Onset: 11-10-2022 Resolved: 11-10-2022 Chronic Adjustment disorders (3 sources) Adjustment disorder with mixed anxiety and depressed mood; Translations: [Adjustment disorder with mixed anxiety and depressed mood] Chronic Chronic kidney disease (1 source) Chronic kidney disease; Translations: [Chronic kidney disease, stage 3a] Onset: 10-27-2024 Diabetes mellitus without complication (1 source) Type 2 diabetes mellitus without complications; Translations: [Type 2 diabetes mellitus without complications] Onset: 10-05-2024 Chronic Disorders of lipid metabolism (13 sources) Hyperlipidemia; Translations: [Hyperlipidemia, unspecified] Onset: 02-13-2023 Chronic Esophageal disorders (1 source) Stricture of esophagus; Translations: [Esophageal obstruction] 02-03-2023 Chronic Essential hypertension (20 sources) Hypertensive disorder; Translations: [Essential (primary) hypertension] Onset: 11-10-2022 11-10-2022 Chronic Late effects of cerebrovascular disease (10 sources) Flaccid hemiplegia of right dominant side; Translations: [Hemiplegia and hemiparesis following cerebral infarction affecting right dominant side] Onset: 11-12-2023 Chronic Malaise and fatigue (3 sources) Right hemiparesis; Translations: [Weakness] Onset: 11-10-2022 11-10-2022 Episodic Mood disorders (1 source) Dysthymic disorder; Translations: [Dysthymic disorder] 11-12-2023 Chronic Other and ill-defined cerebrovascular disease (3 sources) Cerebral atherosclerosis; Translations: [Cerebral atherosclerosis] Chronic Other and ill-defined cerebrovascular disease (1 source) Cerebral atherosclerosis; Translations: [Intracranial atherosclerosis] Onset: 11-12-2023 Chronic Other connective tissue disease (1 source) Falls; Translations: [Repeated falls] 01-13-2023 Episodic Other nervous system disorders (3 sources) Dysphasia; Translations: [Dysphasia] Episodic Other nervous system disorders (1 source) Other symptoms and signs involving cognitive functions and awareness; Translations: [Other symptoms and signs involving cognitive functions and awareness] Onset: 11-26-2024 Episodic Other nutritional; endocrine; and metabolic disorders (16 sources) Obese class I; Translations: [Obesity, unspecified] Onset: 11-11-2022 11-11-2022 Chronic Paralysis (16 sources) Right hemiparesis; Translations: [Hemiplegia, unspecified affecting right dominant side] Onset: 11-10-2022 Chronic Residual codes; unclassified (1 source) Disturbance in sleep behavior; Translations: [Sleep disorder, unspecified] Episodic Thyroid disorders (1 source) Hypothyroidism, unspecified; Translations: [Hypothyroidism, unspecified] Onset: 11-19-2024 Chronic Transient cerebral ischemia (13 sources) Cerebral ischemia; Translations: [Transient cerebral ischemic attack, unspecified] Onset: 01-08-2023 Chronic Unclassified (1 source) OPENED IN ERROR Past or Other Problems Problem Classification Problem Date Documented Da te Episodic/Chronic Genitourinary symptoms and ill-defined conditions (10 sources) Acute retention of urine ; Translations: [Other retention of urine] Onset: 12-20-2022 Episodic Occlusion or stenosis of precerebral arteries (17 sources) Basilar artery occlusion; 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] Onset: 11-11-2022 Resolved: 2024 11-11-2022 Chronic Other aftercare (13 sources) Patient encounter status; Translations: [Encounter for therapeutic drug level monitoring] Onset: 11-10-2022 11-10-2022 Episodic Other aftercare (1 source) Other intermediate project manager (current) drug therapy; Translations: [Other group home (current) drug therapy] Onset: 06-16-2024 Episodic Other circulatory disease (3 sources) Suspected neurological disease; Translations: [Other specified symptoms and signs involving the circulatory and respiratory systems] Onset: 11-10-2022 Resolved: 11-10-2022 11-10-2022 Episodic Residual codes; unclassified (19 sources) Edema of lower extremity; Translations: [Localized edema] Onset: 11-10-2022 11-10-2022 Episodic Urinary tract infections (5 sources) Urinary tract infectious disease; Translations: [Urinary tract infection, site not specified] Onset: 12-20-2022 Episodic Results Test Name Value Interpretation Reference Range Facility Anion gap in Serum or Plasma Ordered By: Lashanda Stone on 11-12-2024 Anion gap [Moles/Vol] 6 mmol/L 11-18 [facility] BUN/creatinine ratioOrdered By: Lashanda Stone on 11-12-2024 Urea nitrogen/Creatinine [Mass ratio] 19.2 mg/mg 04-25 [facility] Basic Metabolic Profile (BMP )on 11-12-2024 BUN/CRE 19.2 RATIO Normal 04-25 [facility] Comment on above: Order Comment: . Performed By: #### L [id number] #### [facility] [address] [place], [address] Calcium [Mass/Vol] 8.8 mg/dL Normal 7.6-11.0 [facility] Comment on above: Order Comment: . Performed By: #### L [id number] #### [facility] [address] [place], [address] Chloride [Moles/Vol] 111 mmol/L High 98-108 [facility] Comment on above: Order Comment: 205.1 Performed By: #### L [id number] #### [facility] [address] [place], [address] CO2 [Moles/Vol] 25.3 mmol/L Normal 21.0-32.0 [facility] Comment on above: Order Comment: 205.1 Performed By: #### L 500.2500 #### [facility] [address] [place], [address] Creatinine [Mass/Vol] 1.14 mg/dL Normal 0.70-1.20 [facility] Comment on above: Order Comment: 205.1 Performed By: #### L [id number] #### [facility] [address] [place], [address] GAP 6 Normal 5-15 [facility] Comment on above: Order Comment: 205.1 Performed By: #### L 500.2500 #### [facility] [address] [place], [address] GFR/1.73 sq M.predicted among non-blacks MDRD (S/P/Bld) [Vol rate/Area] 48 mL/min/{1.73_m2} Low >60 [facility] Comment on above: Order Comment: 205.1 Result Comment: mL/m in/1.73m2 CKD-EPI Creatinine Equation (2020) Performed By: #### L [id number] #### [facility] [address] [place], [address] Glucose [Mass/Vol] 89 mg/dL Normal 70-99 [facility] Comment on above: Order Comment: 205.1 Performed By: #### [id number] #### [facility] [address] [place], [address] Potassium [Moles/Vol] 3.9 mmol/L Normal 3.3-5.1 [facility] Comment on above: Order Comment: 205.1 Performed By: #### [id number] #### [facility] [address] [place], [place], [address] Sodium [Moles/Vol] 142 mmol/L Normal 133-145 [facility] Comment on above: Order Comment: 205.1 Performed By: #### L [id number] #### [facility] [address] [place], [address] Urea nitrogen [Mass/Vol] 22 mg/dL High 4-19 [facility] Comment on above: Order Comment: 205.1 Performed By: #### L 500.2500 #### [facility] [address] [place], [address] Carbon dioxide, total [Moles /volume] in Central venous bloodOrdered By: Lashanda Stone on 11-12-2024 CO2 [Moles/Vol] 25.3 mmol/L 21.0-32.0 [facility] Chloride assayOrdered By: Kika Stone on 11-12-2024 Chloride [Moles/Vol] 111 mmol/L High 98-108 [facility] Glomerular filtration rate ( GFR) estimation/1.73 sq m using serum, plasma, or whole bOrdered By: Lashanda Stone on 11-12-2024 GFR/1.73 sq M.predicted among non-blacks MDRD (S/P/Bld) [Vol rate/Area] 48 mL/min/{1.73_m2} Low >60 [facility] Comment on above: mL/min/1.73m2 CKD-EP I Creatinine Equation (2020) Potassium measurement (mass/ volume)Ordered By: Lashanda Stone on 11-12-2024 Potassium (Unsp spec) [Mass/Vol] 3.9 mmol/L 3.3-5.1 [facility] Serum creatinine measurement (mass/volume)Ordered By: Lashanda Stone on 11-12-2024 Creatinine [Mass/Vol] 1.14 mg/dL 0.70-1.20 [facility] Serum glucose measurement (m ass/volume)Ordered By: Lashanda Stone on 11-12-2024 Glucose [Mass/Vol] 89 mg/dL 70-99 [facility] Serum or plasma calcium thanh urement (mass/volume)Ordered By: Lashanda Stone on 11-12-2024 Calcium [Mass/Vol] 8.8 mg/dL 7.6-11.0 [facility] Serum or plasma urea nitroge n measurement (mass/volume)Ordered By: Lashanda Stone on 11-12-2024 Urea nitrogen [Mass/Vol] 22 mg/dL High 4-19 [facility] Sodium levelOrdered By: Krysten Stone on 11-12-2024 Sodium [Moles/Vol] 142 mmol/L 133-145 [facility] Anion gap in Serum or Plasma Ordered By: Lashanda Stone on 11-08-2024 Anion gap [Moles/Vol] 8 mmol/L - [facility] BUN/creatinine ratioOrdered By: Lashanda Stone on 11-08-2024 Urea nitrogen/Creatinine [Mass ratio] 19.5 mg/mg - [facility] Basic Metabolic Profile (BMP )on 11-08-2024 BUN/CRE 19.5 RATIO Normal 04-25 [facility] Comment on above: Order Comment: . Performed By: #### L 500.2500 #### [facility] [address] [place], [place], [id number] GAP 8 Normal - [facility] Comment on above: Order Comment: . Performed By: #### L 500.2500 #### [facility] [address] [place], [address] Potassium [Moles/Vol] 3.8 mmol/L Normal 3.3-5.1 [facility] Comment on above: Order Comment: . Performed By: #### L 500.2500 #### [facility] [address] [place], [address] Carbon dioxide, total [Moles /volume] in Central venous bloodOrdered By: Lashanda Stone on 11-08-2024 CO2 [Moles/Vol] 25.0 mmol/L Normal 21.0-32.0 [facility] Comment on above: Order Comment: 205.1 Performed By: #### L 500.2500 #### [facility] [address] [place], [address] Chloride assayOrdered By: Kika Stone on 11-08-2024 Chloride [Moles/Vol] 109 mmol/L High 98-108 [facility] Comment on above: Order Comment: 205. Performed By: #### L 500.2500 #### [facility] [address], [place], [id number] Glomerular filtration rate ( GFR) estimation/1.73 sq m using serum, plasma, or whole bOrdered By: Lashanda Stone on 11-08-2024 GFR/1.73 sq M.predicted among non-blacks MDRD (S/P/Bld) [Vol rate/Area] 49 mL/min/{1.73_m2} Low >60 [facility] Comment on above: mL/min/1.73m2 CKD-EP I Creatinine Equation (2020) Order Comment: . Result Comment: mL/m in/1.73m2 CKD-EPI Creatinine Equation (2020) Performed By: #### L 500.2500 #### [facility] [address], [place], [id number] Potassium measurement (mass/ volume)Ordered By: Lashanda Stone on 11-08-2024 Potassium (Unsp spec) [Mass/Vol] 3.8 mmol/L 3.3-5.1 [facility] Serum creatinine measurement (mass/volume)Ordered By: Lashanda Stone on 11-08-2024 Creatinine [Mass/Vol] 1.13 mg/dL Normal 0.70-1.20 [facility] Comment on above: Order Comment: 205.1 Performed By: #### L 500.2500 #### [facility] [address] [place], [address] Serum glucose measurement (m ass/volume)Ordered By: Leonelmitul Bertha on 11-08-2024 Glucose [Mass/Vol] 88 mg/dL Normal 70-99 [facility] Comment on above: Order Comment: 205.1 Performed By: #### L 500.2500 #### [facility] [address] [place], [address] Serum or plasma calcium thanh urement (mass/volume)Ordered By: Lashanda Stone on 11-08-2024 Calcium [Mass/Vol] 8.9 mg/dL Normal 7.6-11.0 [facility] Comment on above: Order Comment: 205.1 Performed By: #### L 500.2500 #### [facility] [address] [place], [address] Serum or plasma urea nitroge n measurement (mass/volume)Ordered By: Lashanda Stone on 11-08-2024 Urea nitrogen [Mass/Vol] 22 mg/dL High 4-19 [facility] Comment on above: Order Comment: 205.1 Performed By: #### L 500.2500 #### [facility] [address] [place], [address] Sodium levelOrdered By: Krysten Stone on 11-08-2024 Sodium [Moles/Vol] 142 mmol/L Normal 133-145 [facility] Comment on above: Order Comment: 205.1 Performed By: #### L 500.2500 #### [facility] [address] [place], [place], [id number] Anion gap in Serum or Plasma Ordered By: Marcos Brown on 11-01-2024 Anion gap [Moles/Vol] 10 mmol/L 5-15 [facility] BUN/creatinine ratioOrdered By: Marcos Brown on 11-01-2024 Urea nitrogen/Creatinine [Mass ratio] 25.1 mg/mg High 10-20 [facility] Basic Metabolic Profile (BMP )on 11-01-2024 BUN/CRE 25.1 RATIO High 10-20 [facility] Comment on above: Order Comment: 205.1 Performed By: #### L 500.2500 #### [facility] [address] [place], [address] Calcium [Mass/Vol] 8.9 mg/dL Normal 7.6-11.0 [facility] Comment on above: Order Comment: 205.1 Performed By: #### L [id number] #### [facility] [address] [place], [address] Chloride [Moles/Vol] 105 mmol/L Normal 98-108 [facility] Comment on above: Order Comment: 205.1 Performed By: #### L 500.2500 #### [facility] [address] [place], [address] CO2 [Moles/Vol] 25.8 mmol/L Normal 21.0-32.0 [facility] Comment on above: Order Comment: 205.1 Performed By: #### L 500.2500 #### [facility] [address] [place], [address] Creatinine [Mass/Vol] 1.32 mg/dL High 0.70-1.20 [facility] Comment on above: Order Comment: 205.1 Performed By: #### L 500.2500 #### [facility] [address] [place], [address] GAP 10 Normal 5-15 [facility] Comment on above: Order Comment: 205.1 Performed By: #### L 500.2500 #### [facility] [address] [place], [address] GFR/1.73 sq M.predicted among non-blacks MDRD (S/P/Bld) [Vol rate/Area] 41 mL/min/{1.73_m2} Low >60 [facility] Comment on above: Order Comment: 205.1 Result Comment: mL/m in/1.73m2 CKD-EPI Creatinine Equation (2020) Performed By: #### L 500.2500 #### [facility] [address] [place], [address] Glucose [Mass/Vol] 110 mg/dL High 70-99 [facility] Comment on above: Order Comment: 205.1 Performed By: #### L 500.2500 #### [facility] [address] [place], [address] Potassium [Moles/Vol] 3.5 mmol/L Normal 3.3-5.1 [facility] Comment on above: Order Comment: 205.1 Performed By: #### L [id number] #### [facility] [address] [place], [address] Sodium [Moles/Vol] 141 mmol/L Normal 133-145 [facility] Comment on above: Order Comment: 205.1 Performed By: #### L 500.2500 #### [facility] [address] [place], [address] Urea nitrogen [Mass/Vol] 33 mg/dL High 4-19 [facility] Comment on above: Order Comment: 205.1 Performed By: #### L 500.2500 #### [facility] [address] [place], [address] Carbon dioxide, total [Moles /volume] in Central venous bloodOrdered By: Marcos Brown on 11-01-2024 CO2 [Moles/Vol] 25.8 mmol/L 21.0-32.0 [facility] Chloride assayOrdered By: Donnie Eugene on 11-01-2024 Chloride [Moles/Vol] 105 mmol/L 98-108 [facility] Glomerular filtration rate ( GFR) estimation/1.73 sq m using serum, plasma, or whole bOrdered By: Marcos Brown on 11-01-2024 GFR/1.73 sq M.predicted among non-blacks MDRD (S/P/Bld) [Vol rate/Area] 41 mL/min/{1.73_m2} Low >60 [facility] Comment on above: mL/min/1.73m2 CKD-EP I Creatinine Equation (2020) Potassium measurement (mass/ volume)Ordered By: Marcos Brown on 11-01-2024 Potassium (Unsp spec) [Mass/Vol] 3.5 mmol/L 3.3-5.1 [facility] Serum creatinine measurement (mass/volume)Ordered By: Marcos Brown on 11-01-2024 Creatinine [Mass/Vol] 1.32 mg/dL High 0.70-1.20 [facility] Serum glucose measurement (m ass/volume)Ordered By: Marcos Brown on 11-01-2024 Glucose [Mass/Vol] 110 mg/dL High 70-99 [facility] Serum or plasma calcium thanh urement (mass/volume)Ordered By: Marcos Brown on 11-01-2024 Calcium [Mass/Vol] 8.9 mg/dL 7.6-11.0 [facility] Serum or plasma urea nitroge n measurement (mass/volume)Ordered By: Marcos Brown on 11-01-2024 Urea nitrogen [Mass/Vol] 33 mg/dL High 4- [facility] Sodium levelOrdered By: Brain Brown on 11-01-2024 Sodium [Moles/Vol] 141 mmol/L 133-145 [facility] Anion gap in Serum or Plasma Ordered By: Lashanda Stone on 10-27-2024 Anion gap [Moles/Vol] 9 mmol/L 5-15 [facility] BUN/creatinine ratioOrdered By: Lashanda Stone on 10-27-2024 Urea nitrogen/Creatinine [Mass ratio] 22.6 mg/mg High - [facility] Basic Metabolic Profile (BMP )on 10-27-2024 BUN/CRE 22.6 RATIO High 04-25 [facility] Comment on above: Order Comment: 205.1 Performed By: #### L 500.6021 #### [facility] [place], [address] Calcium [Mass/Vol] 9.4 mg/dL Normal 7.6-11.0 [facility] Comment on above: Order Comment: 205.1 Performed By: #### L 500.2500 #### [facility] [address] [place], [address] Chloride [Moles/Vol] 99 mmol/L Normal 98-108 [facility] Comment on above: Order Comment: 205.1 Performed By: #### L [id number] #### [facility] [address] [place], [address] CO2 [Moles/Vol] 32.3 mmol/L High 21.0-32.0 [facility] Comment on above: Order Comment: . Performed By: #### L [id number] #### [facility] [address] [place], [address] Creatinine [Mass/Vol] 1.56 mg/dL High 0.70-1.20 [facility] Comment on above: Order Comment: . Performed By: #### L [id number] #### [facility] [address] [place], [address] GAP 9 Normal 5-15 [facility] Comment on above: Order Comment: . Performed By: #### L 500.2500 #### [facility] [address] [place], [address] GFR/1.73 sq M.predicted among non-blacks MDRD (S/P/Bld) [Vol rate/Area] 33 mL/min/{1.73_m2} Low >60 [facility] Comment on above: Order Comment: . Result Comment: mL/m in/1.73m2 CKD-EPI Creatinine Equation (2020) Performed By: #### L 500.2500 #### [facility] [address] [place], [address] Glucose [Mass/Vol] 103 mg/dL High 70-99 [facility] Comment on above: Order Comment: 205.1 Performed By: #### L [id number] #### [facility] [address] [place], [address] Potassium [Moles/Vol] 2.9 mmol/L Low 3.3-5.1 [facility] Comment on above: Order Comment: 205.1 Performed By: #### L [id number] #### [facility] [address] [place], [address] Sodium [Moles/Vol] 141 mmol/L Normal 133-145 [facility] Comment on above: Order Comment: 205.1 Performed By: #### L [id number] #### [facility] [address] [place], [address] Urea nitrogen [Mass/Vol] 35 mg/dL High 4-19 [facility] Comment on above: Order Comment: 205.1 Performed By: #### L 500.2500 #### [facility] [address] [place], [address] Carbon dioxide, total [Moles /volume] in Central venous bloodOrdered By: Lashanda Stone on 10-27-2024 CO2 [Moles/Vol] 32.3 mmol/L High 21.0-32.0 [facility] Chloride assayOrdered By: Kika Stone on 10-27-2024 Chloride [Moles/Vol] 99 mmol/L 98-108 [facility] Glomerular filtration rate ( GFR) estimation/1.73 sq m using serum, plasma, or whole bOrdered By: Lashanda Stone on 10-27-2024 GFR/1.73 sq M.predicted among non-blacks MDRD (S/P/Bld) [Vol rate/Area] 33 mL/min/{1.73_m2} Low >60 [facility] Comment on above: mL/min/1.73m2 CKD-EP I Creatinine Equation (2020) Potassium measurement (mass/ volume)Ordered By: Lashanda Stone on 10-27-2024 Potassium (Unsp spec) [Mass/Vol] 2.9 mmol/L Low 3.3-5.1 [facility] Serum creatinine measurement (mass/volume)Ordered By: Lashanda Stone on 10-27-2024 Creatinine [Mass/Vol] 1.56 mg/dL High 0.70-1.20 [facility] Serum glucose measurement (m ass/volume)Ordered By: Lashanda Stone on 10-27-2024 Glucose [Mass/Vol] 103 mg/dL High 70-99 [facility] Serum or plasma calcium thanh urement (mass/volume)Ordered By: Lashanda Stone on 10-27-2024 Calcium [Mass/Vol] 9.4 mg/dL 7.6-11.0 [facility] Serum or plasma urea nitroge n measurement (mass/volume)Ordered By: Lashanda Stone on 10-27-2024 Urea nitrogen [Mass/Vol] 35 mg/dL High 4-19 [facility] Sodium levelOrdered By: Krysten Stone on 10-27-2024 Sodium [Moles/Vol] 141 mmol/L 133-145 [facility] Anion gap in Serum or Plasma Ordered By: Lashanda Stone on 10-06-2024 Anion gap [Moles/Vol] 11 mmol/L 5-15 [facility] BUN/creatinine ratioOrdered By: Lashanda Stone on 10-06-2024 Urea nitrogen/Creatinine [Mass ratio] 17.3 mg/mg 10-20 [facility] Basic Metabolic Profile (BMP )on 10-06-2024 BUN/CRE 17.3 RATIO Normal - [facility] Comment on above: Order Comment: 205.1 Performed By: #### L 500.2500 #### [facility] [place], [address] Calcium [Mass/Vol] 9.1 mg/dL Normal 7.6-11.0 [facility] Comment on above: Order Comment: 205.1 Performed By: #### L [id number] #### [facility] [address] [place], [address] Chloride [Moles/Vol] 104 mmol/L Normal 98-108 [facility] Comment on above: Order Comment: 205.1 Performed By: #### L [id number] #### [facility] [address] [place], [address] CO2 [Moles/Vol] 26.3 mmol/L Normal 21.0-32.0 [facility] Comment on above: Order Comment: 205.1 Performed By: #### L [id number] #### [facility] [address] [place], [address] Creatinine [Mass/Vol] 1.08 mg/dL Normal 0.70-1.20 [facility] Comment on above: Order Comment: . Performed By: #### L [id number] #### [facility] [address] [place], [address] GAP 11 Normal 5-15 [facility] Comment on above: Order Comment: . Performed By: #### L 500.2500 #### [facility] [address] [place], [address] GFR/1.73 sq M.predicted among non-blacks MDRD (S/P/Bld) [Vol rate/Area] 52 mL/min/{1.73_m2} Low >60 [facility] Comment on above: Order Comment: 205.1 Result Comment: mL/m in/1.73m2 CKD-EPI Creatinine Equation (2020) Performed By: #### L 500.2500 #### [facility] [address] [place], [address] Glucose [Mass/Vol] 102 mg/dL High 70-99 [facility] Comment on above: Order Comment: 205.1 Performed By: #### L 500.2500 #### [facility] [address] [place], [place], [id number] Potassium [Moles/Vol] 3.2 mmol/L Low 3.3-5.1 [facility] Comment on above: Order Comment: 205.1 Performed By: #### L [id number] #### [facility] [address] [place], [place], [id number] Sodium [Moles/Vol] 141 mmol/L Normal 133-145 [facility] Comment on above: Order Comment: 205.1 Performed By: #### L [id number] #### [facility] [address] [place], [place], [id number] Urea nitrogen [Mass/Vol] 19 mg/dL Normal 4-19 [facility] Comment on above: Order Comment: 205.1 Performed By: #### L 500.2500 #### [facility] [address] [place], [place], [id number] Carbon dioxide, total [Moles /volume] in Central venous bloodOrdered By: Lashanda Stone on 10-06-2024 CO2 [Moles/Vol] 26.3 mmol/L 21.0-32.0 [facility] Chloride assayOrdered By: Kika Stone on 10-06-2024 Chloride [Moles/Vol] 104 mmol/L 98-108 [facility] GFR/1.73 sq M.predicted wali g non-blacks MDRD (S/P/Bld) [Vol rate/Area]Ordered By: Lashanda Stone on 10-06-2024 Estimated GFR (MDRD) Non-Af Amer 52 Low >60 [facility] Comment on above: mL/min/1.73m2 CKD-EP I Creatinine Equation (2020) Glomerular filtration rate ( GFR) estimation/1.73 sq m using serum, plasma, or whole bOrdered By: Lashanda Stone on 10-06-2024 GFR/1.73 sq M.predicted among non-blacks MDRD (S/P/Bld) [Vol rate/Area] 52 mL/min/{1.73_m2} Low >60 [facility] Comment on above: mL/min/1.73m2 CKD-EP I Creatinine Equation (2020) Potassium (Unsp spec) [Mass/ Vol]Ordered By: Lashanda Stone on 10-06-2024 Potassium [Moles/Vol] 3.2 mmol/L Low 3.3-5.1 [facility] Potassium measurement (mass/ volume)Ordered By: Lashanda Stone on 10-06-2024 Potassium (Unsp spec) [Mass/Vol] 3.2 mmol/L Low 3.3-5.1 [facility] Serum creatinine measurement (mass/volume)Ordered By: Lashanda Stone on 10-06-2024 Creatinine [Mass/Vol] 1.08 mg/dL 0.70-1.20 [facility] Serum glucose measurement (m ass/volume)Ordered By: Lashanda Stone on 10-06-2024 Glucose [Mass/Vol] 102 mg/dL High 70-99 [facility] Serum or plasma calcium thanh urement (mass/volume)Ordered By: Lashanda Stone on 10-06-2024 Calcium [Mass/Vol] 9.1 mg/dL 7.6-11.0 [facility] Serum or plasma urea nitroge n measurement (mass/volume)Ordered By: Lashanda Stone on 10-06-2024 Urea nitrogen [Mass/Vol] 19 mg/dL 4-19 [facility] Sodium levelOrdered By: Krysten Stone on 10-06-2024 Sodium [Moles/Vol] 141 mmol/L 133-145 [facility] Anion gap in Serum or Plasma Ordered By: Lashanda Stone on 10-01-2024 Anion gap [Moles/Vol] 11 mmol/L 5-15 [facility] BUN/creatinine ratioOrdered By: Lashanda Stone on 10-01-2024 Urea nitrogen/Creatinine [Mass ratio] 19.2 mg/mg 10-20 [facility] Basic Metabolic Profile (BMP )on 10-01-2024 Chloride [Moles/Vol] 106 mmol/L Normal 98-108 [facility] Comment on above: Order Comment: 205.1 Performed By: #### L 500.2500 #### [facility] [address] [place], [address] GAP 11 Normal 5-15 [facility] Comment on above: Order Comment: 205.1 Performed By: #### L 500.2500 #### [facility] [address] [place], [address] Carbon dioxide, total [Moles /volume] in Central venous bloodOrdered By: Lashanda Stone on 10-01-2024 CO2 [Moles/Vol] 25.7 mmol/L 21.0-32.0 [facility] Chloride assayOrdered By: Kika Stone on 10-01-2024 Chloride [Moles/Vol] 106 mmol/L 98-108 [facility] GFR/1.73 sq M.predicted wali g non-blacks MDRD (S/P/Bld) [Vol rate/Area]Ordered By: Lashanda Stone on 10-01-2024 Estimated GFR (MDRD) Non-Af Amer 47 Low >60 [facility] Comment on above: mL/min/1.73m2 CKD-EP I Creatinine Equation (2020) Glomerular filtration rate ( GFR) estimation/1.73 sq m using serum, plasma, or whole bOrdered By: Lashanda Stone on 10-01-2024 GFR/1.73 sq M.predicted among non-blacks MDRD (S/P/Bld) [Vol rate/Area] 47 mL/min/{1.73_m2} Low >60 [facility] Comment on above: mL/min/1.73m2 CKD-EP I Creatinine Equation (2020) Potassium (Unsp spec) [Mass/ Vol]Ordered By: Lashanda Stone on 10-01-2024 Potassium [Moles/Vol] 3.4 mmol/L 3.3-5.1 [facility] Potassium measurement (mass/ volume)Ordered By: Lashanda Stone on 10-01-2024 Potassium (Unsp spec) [Mass/Vol] 3.4 mmol/L 3.3-5.1 [facility] Serum creatinine measurement (mass/volume)Ordered By: Lashanda Stone on 10-01-2024 Creatinine [Mass/Vol] 1.16 mg/dL 0.70-1.20 [facility] Serum glucose measurement (m ass/volume)Ordered By: Lashanda Stone on 10-01-2024 Glucose [Mass/Vol] 99 mg/dL 70-99 [facility] Serum or plasma calcium thanh urement (mass/volume)Ordered By: Lashanda Stone on 10-01-2024 Calcium [Mass/Vol] 9.0 mg/dL 7.6-11.0 [facility] Serum or plasma urea nitroge n measurement (mass/volume)Ordered By: Lashanda Stone on 10-01-2024 Urea nitrogen [Mass/Vol] 22 mg/dL High 4-19 [facility] Sodium levelOrdered By: Krysten Stone on 10-01-2024 Sodium [Moles/Vol] 142 mmol/L 133-145 [facility] Hemoglobin A1con 09-07-2024 HbA1c (Bld) [Mass fraction] 5.9 % Normal <=5.6 [facility] Comment on above: Order Comment: 205.1 Performed By: #### L 500.2500 #### [facility] [address] [place], [address] Hemoglobin A1c percentageOrd ered By: [employer] [facility] on 09-07-2024 HbA1c (Bld) [Mass fraction] 5.9 % >5.7 [facility] Basic Metabolic Profile (BMP )on 08-04-2024 BUN/CRE 26.0 RATIO High 10-20 [facility] Comment on above: Order Comment: 205.1 Performed By: #### L 500.2500 #### [facility] [address] [place], [place], [id number] CA,Total 8.6 mg/dL Normal 8.5-10.1 [facility] Comment on above: Order Comment: 205.1 Performed By: #### L 500.2500 #### [facility] [address] [place], [address] Chloride [Moles/Vol] 111 mmol/L High 98-107 [facility] Comment on above: Order Comment: 205. Performed By: #### L [id number] #### [facility] [address] [place], [address] CO2 [Moles/Vol] 23.0 mmol/L Normal 21.0-32.0 [facility] Comment on above: Order Comment: . Performed By: #### L 500.2500 #### [facility] [address] [place], [address] Creatinine [Mass/Vol] 0.96 mg/dL Normal 0.55-1.02 [facility] Comment on above: Order Comment: .1 Result Comment: The validity of the calculated GFR GFRAA in patients over 70 years has not been determined. Clinical correlation is essential. Performed By: #### L 500.2500 #### [facility] [address] [place], [address] EST GFR - AA 72 mL/min Normal >60 [facility] Comment on above: Order Comment: .1 Result Comment: Afri can [place] GFR Calc Performed By: #### L 500.2500 #### [facility] [address] [place], [address] GAP 9 Normal 5-15 [facility] Comment on above: Order Comment: . Performed By: #### L 500.2500 #### [facility] [address] [place], [address] GFR/1.73 sq M.predicted among non-blacks MDRD (S/P/Bld) [Vol rate/Area] 59 mL/min/{1.73_m2} Low >60 [facility] Comment on above: Order Comment: .1 Result Comment: Non- GFR Calc Performed By: #### L 500.2500 #### [facility] [address] [place], [address] Glucose [Mass/Vol] 104 mg/dL Normal 74-106 [facility] Comment on above: Order Comment: 205.1 Result Comment: Fast ing Glucose result from 100 to 125 mg/dL suggests IMPAIRED HOMEOSTASIS per A.D.A. criteria. Performed By: #### L 500.2500 #### [facility] [address] [place], [address] Potassium [Moles/Vol] 3.7 mmol/L Normal 3.5-5.1 [facility] Comment on above: Order Comment: 205.1 Performed By: #### L 500.2500 #### [facility] [address] [place], [address] Sodium [Moles/Vol] 142 mmol/L Normal 136-145 [facility] Comment on above: Order Comment: 205.1 Performed By: #### L 500.2500 #### [facility] [address] [place], [address] Urea nitrogen [Mass/Vol] 25 mg/dL High 7-18 [facility] Comment on above: Order Comment: 205.1 Performed By: #### L 500.2500 #### [facility] [address] [place], [address] Blood urea nitrogen (BUN)/cr eatinine ratioOrdered By: Marcos Brown on 08-04-2024 Urea nitrogen/Creatinine [Mass ratio] 26.0 mg/mg High 10-20 [facility] Carbon dioxide measurementOr dered By: Marcos Brown on 08-04-2024 CO2 [Moles/Vol] 23.0 mmol/L 21.0-32.0 [facility] Chloride measurementOrdered By: Marcos Bronw on 08-04-2024 Chloride [Moles/Vol] 111 mmol/L High 98-107 [facility] Estimated glomerular filtrat ion rate (GFR) AmericanOrdered By: Marcos Brown on 08-04-2024 Estimated GFR (MDRD) Amer 72 mL/min >60 [facility] Comment on above: GFR Calc Glomerular filtration rate ( GFR) estimationOrdered By: Marcos Brown on 08-04-2024 Estimated GFR (MDRD) Non-Af Amer 59 mL/min Low >60 [facility] Comment on above: Non- GFR Calc GFR/1.73 sq M.predicted among non-blacks MDRD (S/P/Bld) [Vol rate/Area] 59 mL/min/{1.73_m2} Low >60 [facility] Comment on above: Non- GFR Calc Glucose measurementOrdered B y: Marcos Brown on 08-04-2024 Glucose [Mass/Vol] 104 mg/dL 74-106 [facility] Comment on above: Fasting Glucose resu lt from 100 to 125 mg/dL suggests IMPAIRED HOMEOSTASIS per A.D.A. criteria. Potassium measurementOrdered By: Marcos Brown on 08-04-2024 Potassium [Moles/Vol] 3.7 mmol/L 3.5-5.1 [facility] Serum anion gap measurementO rdered By: Marcos Brown on 08-04-2024 Anion gap [Moles/Vol] 9 mmol/L 5-15 [facility] Serum or plasma calcium thanh urement (mass/volume)Ordered By: Marcos Brown on 08-04-2024 Calcium [Mass/Vol] 8.6 mg/dL 8.5-10.1 [facility] Serum or plasma creatinine m easurement (mass/volume)Ordered By: Marcos Brown on 08-04-2024 Creatinine [Mass/Vol] 0.96 mg/dL 0.55-1.02 [facility] Comment on above: The validity of the calculated GFR & GFRAA in patients over 70 years has not been determined. Clinical correlation is essential. Serum or plasma urea nitroge n measurement (mass/volume)Ordered By: Marcos Brown on 08-04-2024 Urea nitrogen [Mass/Vol] 25 mg/dL High 7-18 [facility] Sodium levelOrdered By: Brain Brown on 08-04-2024 Sodium [Moles/Vol] 142 mmol/L 136-145 [facility] Basic Metabolic Profile (BMP )on 06-02-2024 BUN/CRE 25.5 RATIO High 10-20 [facility] Comment on above: Order Comment: 205.1 Performed By: #### L 500.2500 #### [facility] [address] [place], [address] CA,Total 8.2 mg/dL Low 8.5-10.1 [facility] Comment on above: Order Comment: 205.1 Performed By: #### L 500.2500 #### [facility] [address] [place], [address] Chloride [Moles/Vol] 113 mmol/L High 98-107 [facility] Comment on above: Order Comment: 205.1 Performed By: #### L 500.2500 #### [facility] [address] [place], [address] CO2 [Moles/Vol] 28.0 mmol/L Normal 21.0-32.0 [facility] Comment on above: Order Comment: 205.1 Performed By: #### L 500.2500 #### [facility] [address] [place], [address] Creatinine [Mass/Vol] 1.02 mg/dL Normal 0.55-1.02 [facility] Comment on above: Order Comment: 205.1 Result Comment: The validity of the calculated GFR GFRAA in patients over 70 years has not been determined. Clinical correlation is essential. Performed By: #### L 500.2500 #### [facility] [address] [place], [address] EST GFR - AA 67 mL/min Normal >60 [facility] Comment on above: Order Comment: 205.1 Result Comment: Afri can [place] GFR Calc Performed By: #### L 500.2500 #### [facility] [address] [place], [address] GAP 2 Low 5-15 [facility] Comment on above: Order Comment: 205.1 Performed By: #### L 500.2500 #### [facility] [address] [place], [address] GFR/1.73 sq M.predicted among non-blacks MDRD (S/P/Bld) [Vol rate/Area] 55 mL/min/{1.73_m2} Low >60 [facility] Comment on above: Order Comment: 205.1 Result Comment: Non- GFR Calc Performed By: #### L 500.2500 #### [facility] [address] [place], [address] Glucose [Mass/Vol] 94 mg/dL Normal 74-106 [facility] Comment on above: Order Comment: 205.1 Performed By: #### L 500.2500 #### [facility] [address] [place], [address] Potassium [Moles/Vol] 3.5 mmol/L Normal 3.5-5.1 [facility] Comment on above: Order Comment: 205.1 Performed By: #### L [id number] #### [facility] [address] [place], [address] Sodium [Moles/Vol] 143 mmol/L Normal 136-145 [facility] Comment on above: Order Comment: 205.1 Performed By: #### L [id number] #### [facility] [address] [place], [address] Urea nitrogen [Mass/Vol] 26 mg/dL High 7-18 [facility] Comment on above: Order Comment: 205.1 Performed By: #### L 500.2500 #### [facility] [address] [place], [address] Blood urea nitrogen (BUN)/cr eatinine ratioOrdered By: [facility] on 06-02-2024 Urea nitrogen/Creatinine [Mass ratio] 25.5 mg/mg High 10-20 [facility] Carbon dioxide measurementOr dered By: [facility] on 06-02-2024 CO2 [Moles/Vol] 28.0 mmol/L 21.0-32.0 [facility] Chloride measurementOrdered By: [facility] on 06-02-2024 Chloride [Moles/Vol] 113 mmol/L High 98-107 [facility] Estimated glomerular filtrat ion rate (GFR) AmericanOrdered By: [facility] on 06-02-2024 Estimated GFR (MDRD) Amer 67 mL/min >60 [facility] Comment on above: GFR Calc Glomerular filtration rate ( GFR) estimationOrdered By: [facility] on 06-02-2024 Estimated GFR (MDRD) Non-Af Amer 55 mL/min Low >60 [facility] Comment on above: Non- GFR Calc Glucose measurementOrdered B y: [facility] on 06-02-2024 Glucose [Mass/Vol] 94 mg/dL 74-106 [facility] Potassium measurementOrdered By: [facility] on 06-02-2024 Potassium [Moles/Vol] 3.5 mmol/L 3.5-5.1 [facility] Serum anion gap measurementO rdered By: [facility] on 06-02-2024 Anion gap [Moles/Vol] 2 mmol/L Low 5-15 [facility] Serum or plasma calcium thanh urement (mass/volume)Ordered By: [facility] on 06-02-2024 Calcium [Mass/Vol] 8.2 mg/dL Low 8.5-10.1 [facility] Serum or plasma creatinine m easurement (mass/volume)Ordered By: [facility] on 06-02-2024 Creatinine [Mass/Vol] 1.02 mg/dL 0.55-1.02 [facility] Comment on above: The validity of the calculated GFR & GFRAA in patients over 70 years has not been determined. Clinical correlation is essential. Serum or plasma urea nitroge n measurement (mass/volume)Ordered By: [facility] on 06-02-2024 Urea nitrogen [Mass/Vol] 26 mg/dL High 7-18 [facility] Sodium levelOrdered By: [facility] 11-27-2024 Sodium [Moles/Vol] 143 mmol/L 136-145 [facility] CNOVon 05-13-2024 [facility] Office Visit (CVAKPO) MYRNA SARAVIA ([id number]) 1945 F Date Time Provider Department 05/13/24 2:30 PM APURVA BRUNO CVELIANA During your visit today, we recorded the following information about you: Pulse Blood pressure Weight Height 68/minute 146/83 80.3 kg 1.626 m Apurva Bruno APRN.ONLINE MARKETING STRATEGIST 05/14/2024 11:01 AM Signed [facility] Established Visit Consultation is requested by: No referring provider defined for this encounter. PCP: Evin Garcia (David) [place] [address] CEREBROVASCULAR HISTORY Myrna Saravia is a 77 year old female presenting for hospital discharge follow up. Admitted to [facility] 11/10-11/16/22. From discharge summary: 77-year-old female presented [facility] for acute onset of right upper extremity and right lower extremity weakness. Then was called and she was presented to [facility] where telestroke was called. She had a negative CT scan and the decision was made to give TNK by the stroke neurologist. She was then admitted to the intensive care unit post thrombolytics. Her CTA showed severe focal stenosis of the inferior division of the M2 segment right MCA likely due to noncalcified plaque and moderate to severe focal stenosis of the mid add SPECT of the basilar artery likely due to plaque. MRI showed acute infarct within left periventricular white matter and left basal ganglia. No evidence of associated intracranial hemorrhage. Echo showed EF 69%, grade 1 diastolic dysfunction. Neuro interventional radiology was asked to see her and she underwent a diagnostic cerebral angiogram. There was concern for worsening neuro deficits and patient underwent CT brain x [address] brain was stable and EEG without seizure. 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 She was also started on amlodipine and hydralazine for blood pressure control. She had LE ultrasound that were negative for proximal dvt. She also had R upper extremity ultrasound due to swelling that was also negative for dvt. Patient developed a rash to R arm after the ultrasound gel and tape around her IV sites. This will need monitored. She was seen by ST who recommended regular Consistency, thin Liquids IDDSI Level 0, medications crushed in puree (pudding/applesauce) . PT and OT recommended acute rehab and she was discharged once precert obtained. She will need to follow up with her PCP and neurology. Reason for Visit: stroke Date of Last Event: 11/10/2022 Antiplatelets/Antico agulants: Aspirin Statins: Atorvastatin Residual Deficits: Right-sided weakness and Aphasia Current PT/OT/ST: None Current Living Situation: Extended care Current use of a mobility aid for walking/getting around: Wheelchair/Scooter Office Visit 12/19/22 -presents with her daughter Brooklynn -right sided weakness, aphasia improving -discharged from acute rehab and now in SNF -PT, OT, speech in facility -have not received cardiac event monitor -[facility] for mood (crying, bouts of anger) - had been on it for about 3 weeks, but then stopped it a few days ago due to urinary retention and incontinence to see if it would improve. Did not notice any benefit for mood yet. -they want to know if this is a good mood medication for her given her age -last 3 days has had incontinence and has needed straight cath -seeing Urology tomorrow -noting some episodes of paranoia, thinking people are doing bad things to her -her sleep schedule has been very inconsistent - she is up a lot of the night and naps during the day so likely not getting enough sleep -aspirin 81mg + plavix 75mg x 90 days - no bleeding complications -lipitor 40mg - no myalgias or other side effects -BP 110/56 -no new stroke-like symptoms -they were told in the hospital that they need to see Dr. Lutz as well, no appt scheduled yet Office Visit 02/1023 -presents with her daughter Brooklynn -in different alf facility, moved about a week ago- [facility] in [place] -aphasia and dysarthria improving -she still cannot move her right arm but her right leg is gaining strength, she can now lift it in the air -able to take some steps with the chely-cane -30 day event monitor - NSR, no afib -aspirin 81mg + plavix 75mg - no bleeding complications -lipitor 40mg - no myalgias or other side effects - LDL 38 on 02/10 -BP 105/54 -no new stroke-like symptoms -her mood and sleep have been better overall, still on remeron 15mg -still with some bowel and bladder incontinence, following with urology - had untreated UTI, now recommending timed voids Office Visit 05/14/23 -presents for follow up with he (more content not included)... Normal [facility] Basic Metabolic Profile (BMP )on 04-13-2024 BUN/CRE 25.2 RATIO High 10-20 [facility] Comment on above: Order Comment: 205.1 Performed By: #### L 500.2500 #### [facility] [address] [place], [address] CA,Total 8.6 mg/dL Normal 8.5-10.1 [facility] Comment on above: Order Comment: 205.1 Performed By: #### L 500.2500 #### [facility] [address] [place], [address] Chloride [Moles/Vol] 112 mmol/L High 98-107 [facility] Comment on above: Order Comment: 205.1 Performed By: #### L 500.2500 #### [facility] [address] [place], [address] CO2 [Moles/Vol] 27.0 mmol/L Normal 21.0-32.0 [facility] Comment on above: Order Comment: 205.1 Performed By: #### L 500.2500 #### [facility] [address] [place], [address] Creatinine [Mass/Vol] 0.99 mg/dL Normal 0.55-1.02 [facility] Comment on above: Order Comment: 205.1 Result Comment: The validity of the calculated GFR GFRAA in patients over 70 years has not been determined. Clinical correlation is essential. Performed By: #### L 500.2500 #### [facility] [address] [place], [address] EST GFR - AA 69 mL/min Normal >60 [facility] Comment on above: Order Comment: 205.1 Result Comment: Afri can [place]an GFR Calc Performed By: #### L 500.2500 #### [facility] [address] [place], [address] GAP 6 Normal 5-15 [facility] Comment on above: Order Comment: . Performed By: #### L 500.2500 #### [facility] [address] [place], [address] GFR/1.73 sq M.predicted among non-blacks MDRD (S/P/Bld) [Vol rate/Area] 57 mL/min/{1.73_m2} Low >60 [facility] Comment on above: Order Comment: . Result Comment: Non- GFR Calc Performed By: #### L 500.2500 #### [facility] [address] [place], [address] Glucose [Mass/Vol] 97 mg/dL Normal 74-106 [facility] Comment on above: Order Comment: . Performed By: #### L 500.2500 #### [facility] [address] [place], [address] Potassium [Moles/Vol] 3.4 mmol/L Low 3.5-5.1 [facility] Comment on above: Order Comment: . Performed By: #### L 500.2500 #### [facility] [address] [place], [address] Sodium [Moles/Vol] 145 mmol/L Normal 136-145 [facility] Comment on above: Order Comment: 205.1 Performed By: #### L 500.2500 #### [facility] [address] [place], [address] Urea nitrogen [Mass/Vol] 25 mg/dL High 7-18 [facility] Comment on above: Order Comment: 205.1 Performed By: #### L 500.2500 #### [facility] [address] [place], [address] CBC-Complete Blood Cnt No Di ffon 04-13-2024 Erythrocyte distribution width (RBC) [Ratio] 13.8 % Normal 11.6-14.6 [facility] Comment on above: Order Comment: 205.1 Performed By: #### L 500.2500 #### [facility] [address] [place], [address] Hematocrit (Bld) [Volume fraction] 36.1 % Low 37-47 [facility] Comment on above: Order Comment: 205.1 Performed By: #### L 500.2500 #### [facility] [address] [place], [address] Hemoglobin (Bld) [Mass/Vol] 11.4 g/dL Low 12.0-15.0 [facility] Comment on above: Order Comment: 205.1 Performed By: #### L 500.2500 #### [facility] [address] [place], [address] MCH (RBC) [Entitic mass] 29.8 pg Normal 27.0-32.0 [facility] Comment on above: Order Comment: 205.1 Performed By: #### L 500.2500 #### [facility] [address] [place], [address] MCHC (RBC) [Mass/Vol] 31.6 g/dL Low 32-36 [facility] Comment on above: Order Comment: 205.1 Performed By: #### L 500.2500 #### [facility] [address] [place], [address] MCV (RBC) [Entitic vol] 94.5 fL Normal 81-99 [facility] Comment on above: Order Comment: 205.1 Performed By: #### L 500.2500 #### [facility] [address] [place], [address] Platelet mean volume (Bld) [Entitic vol] 10.2 fL Normal 6.2-12.0 [facility] Comment on above: Order Comment: 205.1 Performed By: #### L 500.2500 #### [facility] [address] [place], [address] Platelets (Bld) [#/Vol] 154 10*3/uL Normal 150-450 [facility] Comment on above: Order Comment: 205.1 Performed By: #### L 500.2500 #### [facility] [address] [place], [address] RBC (Bld) [#/Vol] 3.82 10*6/uL Low 4.2-5.4 [facility] Comment on above: Order Comment: 205.1 Performed By: #### L 500.2500 #### [facility] [address] [place], [address] RDW SD 47.7 fl High 35.1-43.9 [facility] Comment on above: Order Comment: 205.1 Performed By: #### L 500.2500 #### [facility] [address] [place], [address] WBC (Bld) [#/Vol] 5.1 10*3/uL Normal 4.4-11.0 [facility] Comment on above: Order Comment: 205.1 Performed By: #### L 500.2500 #### [facility] [address] [place], [address] Lipid Profileon 03-23-2024 Cholesterol [Mass/Vol] 112 mg/dL Normal 200 [facility] Comment on above: Order Comment: 205.1 Result Comment: <200 mg/dL Desirable 200-240 mg/dL Borderline >240 mg/dL High Risk Performed By: #### L 500.2500 #### [facility] [address] [place], [address] Cholesterol in HDL [Mass/Vol] 50 mg/dL Normal [facility] Comment on above: Order Comment: 205.1 Result Comment: The drugs N-Acetylcysteine and Metamizole may falsely depress this assay. Reference Range HDL <40 mg/dL Low HDL Cholesterol HDL >or= 60 mg/dL High HDL Cholesterol Performed By: #### L 500.2500 #### [facility] [address] [place], [address] Cholesterol in LDL [Mass/Vol] 53 mg/dL Normal 0-130 [facility] Comment on above: Order Comment: 205.1 Performed By: #### L 500.2500 #### [facility] [address] [place], [address] Cholesterol in VLDL [Mass/Vol] 9 mg/dL Normal 5-40 [facility] Comment on above: Order Comment: 205.1 Performed By: #### L 500.2500 #### [facility] [address] [place], [address] Triglyceride [Mass/Vol] 46 mg/dL Normal [facility] Comment on above: Order Comment: 205.1 Result Comment: The drugs N-Acetylcysteine and Metamizole may falsely depress this assay. Serum Triglycerides Reference Interval Normal <150 mg/dL Borderline high 150 - 199 mg/dL High 200 - 499 mg/dL Very High > or = 500 mg/dL Performed By: #### L 500.2500 #### [facility] [address] [place], [address] Urine Cultureon 02-29-2024 [facility] [place] Count 11,000-25,000 [facility]: REACTION Ampicillin Islt KARL R Ampicillin+Sulbac Islt KARL <=2 S ceFAZolin Islt KARL R Cefepime Islt KARL <=0.12 S cefTRIAXone Islt KARL <=0.25 S Ciprofloxacin Islt KARL 1 S Ertapenem Islt KARL <=0.12 S Gentamicin Islt KARL R Imipenem Islt KARL 0.5 S levoFLOXacin Islt KARL 1 S Nitrofurantoin Islt KARL 128 R Pip+Tazo Islt KARL <=4 S Tobramycin Islt KARL R TMP SMX Islt KARL <=20 S Normal [facility] Comment on above: Performed By: #### M 100.2200, L400.0001 #### [facility] [address] [place], [address] Urinalysis, Completeon 02-26 WBC 0-5 SEEN Normal 0-5 [facility] Comment on above: Order Comment: ARY TER SPECIMEN Performed By: #### M 100.2200, L400.0001 #### [facility] [address] [place], [address] BACTERIA 0 SEEN Normal None Seen [facility] Comment on above: Order Comment: ARY TER SPECIMEN Performed By: #### M 100.2200, L400.0001 #### [facility] [address] [place], [address] EPI,SQUAMOUS 0 SEEN Normal 5-10 [facility] Comment on above: Order Comment: ARY TER SPECIMEN Performed By: #### M 100.2200, L400.0001 #### [facility] [address] [place], [address] Mucus Ql (Urine sed) 0 SEEN Normal [facility] Comment on above: Order Comment: ARY TER SPECIMEN Performed By: #### M 100.2200, L400.0001 #### [facility] [address] [place], [address] RBC 0 SEEN Normal 0-5 [facility] Comment on above: Order Comment: ARY TER SPECIMEN Performed By: #### M 100.2200, L400.0001 #### [facility] [address] [place], [address] Basic Metabolic Profile (BMP )on 02-24-2024 Chloride [Moles/Vol] 110 mmol/L High 98-107 [facility] Comment on above: Order Comment: Result Comment: . AMENDED REPORT 02/24/241205 CL previously reported as: 110 H mmol/L Performed By: #### L 100.0500, L500.2500 #### [facility] [address] [place], [address] CO2 [Moles/Vol] 29.0 mmol/L Normal 21.0-32.0 [facility] Comment on above: Order Comment: Result Comment: . AMENDED REPORT 02/24/241205 CO2 previously reported as: 29.0 mmol/L Performed By: #### L 100.0500, L500.2500 #### [facility] [address] [place], [address] GAP 3 Low 5-15 [facility] Comment on above: Order Comment: Result Comment: . AMENDED REPORT 02/24/241205 GAP previously reported as: 3 L Performed By: #### L 100.0500, L500.2500 #### [facility] [address] [place], [address] Potassium [Moles/Vol] 3.7 mmol/L Normal 3.5-5.1 [facility] Comment on above: Order Comment: Result Comment: . AMENDED REPORT 02/24/241205 K previously reported as: 3.7 mmol/L Performed By: #### L 100.0500, L500.2500 #### [facility] [address] [place], [address] BUN/CRE 24.8 RATIO High 10-20 [facility] Comment on above: Order Comment: Result Comment: . AMENDED REPORT 02/24/241204 BUN/CRE previously reported as: 24.8 H RATIO Performed By: #### L 100.0500, L500.2500 #### [facility] [address] [place], [address] CA,Total 8.9 mg/dL Normal 8.5-10.1 [facility] Comment on above: Order Comment: Result Comment: . AMENDED REPORT 02/24/241204 CA previously reported as: 8.9 mg/dL Performed By: #### L 100.0500, L500.2500 #### [facility] [address] [place], [address] Creatinine [Mass/Vol] 1.09 mg/dL High 0.55-1.02 [facility] Comment on above: Order Comment: Result Comment: The validity of the calculated GFR GFRAA in patients over 70 years has not been determined. Clinical correlation is essential. . AMENDED REPORT 02/24/241204 CREAT,SERUM previously reported as: 1.09 H mg/dL The validity of the calculated GFR GFRAA in patients over 70 years has not been determined. Clinical correlation is essential. Performed By: #### L 100.0500, L500.2500 #### [facility] [address] [place], [address] EST GFR - AA 62 mL/min Normal >60 [facility] Comment on above: Order Comment: Result Comment: Afri can [place]an GFR Calc . AMENDED REPORT 02/24/241204 EST GFR - AA previously reported as: 62 mL/min GFR Calc Performed By: #### L 100.0500, L500.2500 #### [facility] [address] [place], [address] GFR/1.73 sq M.predicted among non-blacks MDRD (S/P/Bld) [Vol rate/Area] 51 mL/min/{1.73_m2} Low >60 [facility] Comment on above: Order Comment: Result Comment: Non- GFR Calc . AMENDED REPORT 02/24/241204 EST GFR previously reported as: 51 L mL/min Non- GFR Calc Performed By: #### L 100.0500, L500.2500 #### [facility] [address] [place], [address] Sodium [Moles/Vol] 142 mmol/L Normal 136-145 [facility] Comment on above: Order Comment: Result Comment: . AMENDED REPORT 02/24/241204 NA previously reported as: 142 mmol/L Performed By: #### L 100.0500, L500.2500 #### [facility] [address] [place], [address] Glucose [Mass/Vol] 95 mg/dL Normal 74-106 [facility] Comment on above: Order Comment: Result Comment: . AMENDED REPORT 02/24/241203 GLU previously reported as: 95 mg/dL Performed By: #### L 100.0500, L500.2500 #### [facility] [address] [place], [address] Urea nitrogen [Mass/Vol] 27 mg/dL High 7-18 [facility] Comment on above: Order Comment: Result Comment: . AMENDED REPORT 02/24/241203 BUN previously reported as: 27 H mg/dL Performed By: #### L 100.0500, L500.2500 #### [facility] [address] [place], [address] CBC-Complete Blood Cnt No Di ffon 02-24-2024 Erythrocyte distribution width (RBC) [Ratio] 13.5 % Normal 11.6-14.6 [facility] Comment on above: Order Comment: Result Comment: . AMENDED REPORT 02/24/24 1200 RDW CV previously reported as: 13.5 % Performed By: #### L 100.0500, L500.2500 #### [facility] [address] [place], [address] MCH (RBC) [Entitic mass] 30.8 pg Normal 27.0-32.0 [facility] Comment on above: Order Comment: Result Comment: . AMENDED REPORT 02/24/24 1200 MCH previously reported as: 30.8 pg Performed By: #### L 100.0500, L500.2500 #### [facility] [address] [place], [address] MCHC (RBC) [Mass/Vol] 32.2 g/dL Normal 32-36 [facility] Comment on above: Order Comment: Result Comment: . AMENDED REPORT 02/24/24 1200 MCHC previously reported as: 32.2 g/dL Performed By: #### L 100.0500, L500.2500 #### [facility] [address] [place], [address] Platelet mean volume (Bld) [Entitic vol] 9.2 fL Normal 6.2-12.0 [facility] Comment on above: Order Comment: Result Comment: . AMENDED REPORT 02/24/24 1200 MPV previously reported as: 9.2 fl Performed By: #### L 100.0500, L500.2500 #### [facility] [address] [place], [address] Platelets (Bld) [#/Vol] 256 10*3/uL Normal 150-450 [facility] Comment on above: Order Comment: Result Comment: . AMENDED REPORT 02/24/24 1200 PLT previously reported as: 256 K/mm3 Performed By: #### L 100.0500, L500.2500 #### [facility] [address] [place], [address] RDW SD 47.5 fl High 35.1-43.9 [facility] Comment on above: Order Comment: Result Comment: . AMENDED REPORT 02/24/24 1200 RDW SD previously reported as: 47.5 H fl Performed By: #### L 100.0500, L500.2500 #### [facility] [address] [place], [address] Hematocrit (Bld) [Volume fraction] 39.4 % Normal 37-47 [facility] Comment on above: Order Comment: Result Comment: . AMENDED REPORT 02/24/24 1159 HCT previously reported as: 39.4 % Performed By: #### L 100.0500, L500.2500 #### [facility] [address] [place], [address] Hemoglobin (Bld) [Mass/Vol] 12.7 g/dL Normal 12.0-15.0 [facility] Comment on above: Order Comment: Result Comment: . AMENDED REPORT 02/24/24 1159 HGB previously reported as: 12.7 g/dL Performed By: #### L 100.0500, L500.2500 #### [facility] [address] [place], [address] MCV (RBC) [Entitic vol] 95.4 fL Normal 81-99 [facility] Comment on above: Order Comment: Result Comment: . AMENDED REPORT 02/24/24 1159 MCV previously reported as: 95.4 fL Performed By: #### L 100.0500, L500.2500 #### [facility] [address] [place], [address] RBC (Bld) [#/Vol] 4.13 10*6/uL Low 4.2-5.4 [facility] Comment on above: Order Comment: Result Comment: . AMENDED REPORT 02/24/24 1159 RBC previously reported as: 4.13 L M/mm3 Performed By: #### L 100.0500, L500.2500 #### [facility] [address] [place], [address] WBC (Bld) [#/Vol] 5.8 10*3/uL Normal 4.4-11.0 [facility] Comment on above: Order Comment: Result Comment: . AMENDED REPORT 02/24/24 7828 WBC previously reported as: 5.8 K/mm3 Performed By: #### L 100.0500, L500.2500 #### [facility] [address] [place], [address] Basic Metabolic Profile (BMP )on 01-09-2024 BUN/CRE 29.7 RATIO High 10-20 [facility] Comment on above: Order Comment: Performed By: #### L 100.0500, L500.2500 #### [facility] [address] [place], [address] CA,Total 8.9 mg/dL Normal 8.5-10.1 [facility] Comment on above: Order Comment: Performed By: #### L 100.0500, L500.2500 #### [facility] [address] [place], [address] Chloride [Moles/Vol] 110 mmol/L High 98-107 [facility] Comment on above: Order Comment: Performed By: #### L 100.0500, L500.2500 #### [facility] [address] [place], [address] CO2 [Moles/Vol] 28.0 mmol/L Normal 21.0-32.0 [facility] Comment on above: Order Comment: Performed By: #### L 100.0500, L500.2500 #### [facility] [address] [place], [address] Creatinine [Mass/Vol] 1.01 mg/dL Normal 0.55-1.02 [facility] Comment on above: Order Comment: Result Comment: The validity of the calculated GFR GFRAA in patients over 70 years has not been determined. Clinical correlation is essential. Performed By: #### L 100.0500, L500.2500 #### [facility] [address] [place], [address] EST GFR - AA 68 mL/min Normal >60 [facility] Comment on above: Order Comment: Result Comment: Afri can [place] GFR Calc Performed By: #### L 100.0500, L500.2500 #### [facility] [address] [place], [address] GAP 5 Normal 5-15 [facility] Comment on above: Order Comment: Performed By: #### L 100.0500, L500.2500 #### [facility] [address] [place], [address] GFR/1.73 sq M.predicted among non-blacks MDRD (S/P/Bld) [Vol rate/Area] 56 mL/min/{1.73_m2} Low >60 [facility] Comment on above: Order Comment: Result Comment: Non- GFR Calc Performed By: #### L 100.0500, L500.2500 #### [facility] [address] [place], [address] Glucose [Mass/Vol] 89 mg/dL Normal 74-106 [facility] Comment on above: Order Comment: Performed By: #### L 100.0500, L500.2500 #### [facility] [address] [place], [address] Potassium [Moles/Vol] 3.5 mmol/L Normal 3.5-5.1 [facility] Comment on above: Order Comment: Performed By: #### L 100.0500, L500.2500 #### [facility] [address] [place], [address] Sodium [Moles/Vol] 143 mmol/L Normal 136-145 [facility] Comment on above: Order Comment: Performed By: #### L 100.0500, L500.2500 #### [facility] [address] [place], [address] Urea nitrogen [Mass/Vol] 30 mg/dL High 7-18 [facility] Comment on above: Order Comment: Performed By: #### L 100.0500, L500.2500 #### [facility] [address] [place], [address] CBC-Complete Blood Cnt No Di ffon 01-09-2024 Erythrocyte distribution width (RBC) [Ratio] 13.6 % Normal 11.6-14.6 [facility] Comment on above: Performed By: #### L 100.0500, L500.2500 #### [facility] [address] [place], [address] Hematocrit (Bld) [Volume fraction] 38.2 % Normal 37-47 [facility] Comment on above: Performed By: #### L 100.0500, L500.2500 #### [facility] [address] [place], [address] Hemoglobin (Bld) [Mass/Vol] 12.0 g/dL Normal 12.0-15.0 [facility] Comment on above: Performed By: #### L 100.0500, L500.2500 #### [facility] [address] [place], [address] MCH (RBC) [Entitic mass] 29.4 pg Normal 27.0-32.0 [facility] Comment on above: Performed By: #### L 100.0500, L500.2500 #### [facility] [address] [place], [address] MCHC (RBC) [Mass/Vol] 31.4 g/dL Low 32-36 [facility] Comment on above: Performed By: #### L 100.0500, L500.2500 #### [facility] [address] [place], [address] MCV (RBC) [Entitic vol] 93.6 fL Normal 81-99 [facility] Comment on above: Performed By: #### L 100.0500, L500.2500 #### [facility] [address] [place], [address] Platelet mean volume (Bld) [Entitic vol] 10.0 fL Normal 6.2-12.0 [facility] Comment on above: Performed By: #### L 100.0500, L500.2500 #### [facility] [address] [place], [address] Platelets (Bld) [#/Vol] 156 10*3/uL Normal 150-450 [facility] Comment on above: Performed By: #### L 100.0500, L500.2500 #### [facility] [address] [place], [address] RBC (Bld) [#/Vol] 4.08 10*6/uL Low 4.2-5.4 [facility] Comment on above: Performed By: #### L 100.0500, L500.2500 #### [facility] [address] [place], [address] RDW SD 47.1 fl High 35.1-43.9 [facility] Comment on above: Performed By: #### L 100.0500, L500.2500 #### [facility] [address] [place], [place], [address] WBC (Bld) [#/Vol] 5.5 10*3/uL Normal 4.4-11.0 [facility] Comment on above: Performed By: #### L 100.0500, L500.2500 #### [facility] [address] [place], [address] CNOVon 11-21-2023 CNOV Office Visit (UROLSF) MYRNA SARAVIA ([id number]) 1945 F Date Time Provider Department 11/21/23 1:45 PM LASHANDA ALBRECHT [facility] During your visit today, we recorded the following information about you: Pulse Blood pressure Height 85/minute 140/83 1.626 m Lashanda Albrecht APRN.ONLINE MARKETING STRATEGIST 11/21/2023 2:31 PM Addendum ESTABLISHED PATIENT OFFICE VISIT HISTORY OF PRESENT ILLNESS Myrna Saravia is a 78 year old female who presents today in f/u. 04/14/23: Patient with a h/o urinary retention, UTI, CVA. Patient presents today in f/u. Patient now at [facility]. Recent UTI on 04/02/23. Finished a course of macrobid on 04/10/23. Patient's daughter feels her UTI has not resolved. She continues to have malodorous urine. No fever or chills. No gross hematuria. No dysuria. Still difficult for patient to feel her bladder. Does not have the urge to void most of the time. She is now being taken to the bathroom most of the time during the day at the [facility]. Mostly has incontinence into her depends. Today's note: Patient with a h/o CVA, urinary retention, UTI. Patient is still residing at [facility]. Her last UTI was on 04/02/23. Recent micro UA done on 11/07/23 was negative. Patient denies any gross hematuria. No dysuria. No fever or chills. Had a recent fall. Her daughter states that she has been angry lately, thought she may have a UTI, but UA negative. Voiding into her depends. Gets up to the bedside commode at times. LAB RESULTS Creatinine Date Value Ref Range Status 12/09/2022 0.99 (H) 0.58 - 0.96 mg/dL Final No results found for: PSA Color (no units) Date Value 12/03/2022 Yellow Clarity (no units) Date Value 12/03/2022 Clear Glucose, Urine (no units) Date Value 12/03/2022 Negative Bilirubin, Urine (no units) Date Value 12/03/2022 Negative Ketones, Urine (no units) Date Value 12/03/2022 Negative Specific [place], Ur (no units) Date Value 12/03/2022 >=1.030 Hemoglobin/Blood,Ur (no units) Date Value 12/03/2022 Negative pH, Urine (no units) Date Value 12/03/2022 6.0 Protein, Urine (no units) Date Value 12/03/2022 Negative Urobilinogen (no units) Date Value 12/03/2022 0.2 EU/dL Nitrites (no units) Date Value 12/03/2022 Negative Leuk Esterase (no units) Date Value 12/03/2022 Negative MEDICATIONS: guaiFENesin (ROBITUSSIN) 100 mg/5 mL syrup Take 200 mg by mouth every 4 hours as needed. potassium chloride ER (KLOR-CON M10) 10 mEq tablet Take 10 mEq by mouth two times a day. bisacodyl (DULCOLAX, BISACODYL,) 10 mg supp 10 mg by RECTAL route once daily as needed for constipation. SACCHAROMYCES BOULARDII-FOS ORAL Take by mouth. MUCUS-CHEST CONGESTION 100 mg/5 mL syrup chlorthalidone (HYGROTON) 25 mg tablet [facility] 10 billion cell -200 mg capsule polyethylene glycol 3350 17 gram/dose powder Take 17 g by mouth at bedtime as needed. acetaminophen (TYLENOL) 325 mg tablet Take 650 mg by mouth every 6 hours as needed. losartan (COZAAR) 50 mg tablet Take 50 mg by mouth once daily. magnesium hydroxide (EX-LAX MILK OF MAGNESIA ORAL) Take by mouth. mirtazapine (REMERON) 15 mg tablet Take 15 mg by mouth daily at bedtime. aspirin 81 mg chewable tablet 1 tablet by ORAL/FEEDING TUBE route once daily. atorvastatin (LIPITOR) 40 mg tablet 1 tablet by ORAL/FEEDING TUBE route daily at bedtime. lactobacillus rhamnosus (CULTURELLE) 10 billion cell capsule Take 1 capsule by mouth once daily. (Patient not taking: Reported on 11/21/2023) REVIEW OF SYSTEMS CONSTITUTIONAL: Patient reports no recent fever or weight loss CARDIOVASCULAR: No chest pain, palpitations or ankle edema. RESPIRATORY: No wheezing, frequent cough or shortness of breath GENITOURINARY: See HPI HISTORIES PAST MEDICAL HISTORY Diagnosis Date Hypertension Intracranial vascular stenosis History reviewed. No pertinent family history. History reviewed. No pertinent surgical history. SOCIAL HISTORY Social History Tobacco Use Smoking status: Never Smokeless tobacco: Never Substance Use Topics Alcohol use: Never Drug use: Never PHYSICAL EXAMINATION General appearance: Well appearing, alert, in no acute distress, well-hydrated, well nourished.. BACK: not examined. MUSCULOSKELETAL: Negative for joint pain or swelling. RESPIRATORY: Normal respiratory effort. SKIN: Normal color, no rash, no lesions.. ASSESSMENT/PLAN: 1. Retention of urine - ICD9: 788.20, ICD10: R33.9 2. Urinary tract infection with hematuria, site unspecified - ICD9: 599.0, 599.70, ICD10: N39.0, R31.9 -ECF to check a urine culture if patient is symptomatic. -continue probiotics. -urine culture 6 months. -f/u in 1 year or sooner if any issues. Lashanda Albrecht APRN.Lashanda Mobley APRN.CNP 11/21/2023 2:31 PM Signed Addended by: LASHANDA ALBRECHT on: 11/21/2023 02:31 PM Mod (more content not included)... Normal [facility] CNOVon 11-12-2023 CNOV Office Visit (CVAKPO) MYRNA SARAVIA ([id number]) 1945 F Date Time Provider Department 11/12/23 1:00 PM APURVA BRUNO CVAKPO During your visit today, we recorded the following information about you: Pulse Blood pressure Weight Height 62/minute 122/49 80.3 kg 1.626 m Apurva Bruno, DASHA.ONLINE MARKETING STRATEGIST 11/12/2023 2:25 PM Signed [facility] Established Visit Consultation is requested by: No referring provider defined for this encounter. PCP: Evin Garcia (David) [address] [place] [address] CEREBROVASCULAR HISTORY Myrna Saravia is a 77 year old female presenting for hospital discharge follow up. Admitted to [facility] 11/10-11/16/22. From discharge summary: 77-year-old female presented [facility] for acute onset of right upper extremity and right lower extremity weakness. Then was called and she was presented to [facility] where telestroke was called. She had a negative CT scan and the decision was made to give TNK by the stroke neurologist. She was then admitted to the intensive care unit post thrombolytics. Her CTA showed severe focal stenosis of the inferior division of the M2 segment right MCA likely due to noncalcified plaque and moderate to severe focal stenosis of the mid add SPECT of the basilar artery likely due to plaque. MRI showed acute infarct within left periventricular white matter and left basal ganglia. No evidence of associated intracranial hemorrhage. Echo showed EF 69%, grade 1 diastolic dysfunction. Neuro interventional radiology was asked to see her and she underwent a diagnostic cerebral angiogram. There was concern for worsening neuro deficits and patient underwent CT brain x [address] brain was stable and EEG without seizure. 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 She was also started on amlodipine and hydralazine for blood pressure control. She had LE ultrasound that were negative for proximal dvt. She also had R upper extremity ultrasound due to swelling that was also negative for dvt. Patient developed a rash to R arm after the ultrasound gel and tape around her IV sites. This will need monitored. She was seen by ST who recommended regular Consistency, thin Liquids IDDSI Level 0, medications crushed in puree (pudding/applesauce) . PT and OT recommended acute rehab and she was discharged once precert obtained. She will need to follow up with her PCP and neurology. Reason for Visit: stroke Date of Last Event: 11/10/2022 Antiplatelets/Antico agulants: Aspirin Statins: Atorvastatin Side effects: No Refills needed: No Residual Deficits: Right-sided weakness and Aphasia Current PT/OT/ST: Physical therapy at home, Occupational therapy at home and Speech therapy at home Initial Discharge Disposition: IRF Current Living Situation: Extended care Current use of a mobility aid for walking/getting around: Wheelchair/Scooter Do you have any planned upcoming surgeries or dental procedures? No Office Visit 12/19/22 -presents with her daughter Brooklynn -right sided weakness, aphasia improving -discharged from acute rehab and now in SNF -PT, OT, speech in facility -have not received cardiac event monitor -started Remeron in [facility] for mood (crying, bouts of anger) - had been on it for about 3 weeks, but then stopped it a few days ago due to urinary retention and incontinence to see if it would improve. Did not notice any benefit for mood yet. -they want to know if this is a good mood medication for her given her age -last 3 days has had incontinence and has needed straight cath -seeing Urology tomorrow -noting some episodes of paranoia, thinking people are doing bad things to her -her sleep schedule has been very inconsistent - she is up a lot of the night and naps during the day so likely not getting enough sleep -aspirin 81mg + plavix 75mg x 90 days - no bleeding complications -lipitor 40mg - no myalgias or other side effects -BP 110/56 -no new stroke-like symptoms -they were told in the hospital that they need to see Dr. Lutz as well, no appt scheduled yet Office Visit 02/1023 -presents with her daughter Brooklynn -in different alf facility, moved about a week ago- [facility] in [place] -aphasia and dysarthria improving -she still cannot move her right arm but her right leg is gaining strength, she can now lift it in the air -able to take some steps with the chely-cane -30 day event monitor - NSR, no afib -aspirin 81mg + plavix 75mg - no bleeding complications -lipitor 40mg - no myalgias or other side effects - LDL 38 on 02/10 -BP 105/54 -no new stroke-like symptoms -her mood and sleep have be (more content not included)... Normal [facility] Bilirubin Test strip Ql (U)O rdered By: Marcos Brown on 07-02-2023 Bilirubin Ql (U) Negative Negative [facility] Culture, urineOrdered By: Donnie Eugene on 07-02-2023 Bacteria identified Cx Nom (U) Proteus mirabilis [facility] Ketones Test strip Ql (U)Ord ered By: Marcos Brown on 07-02-2023 Ketones Ql (U) Negative Negative [facility] Nitrite Test strip Ql (U)Ord ered By: Marcos Brown on 07-02-2023 Nitrite Ql (U) Negative Negative [facility] Protein Test strip Ql (U)Ord ered By: Marcos Brown on 07-02-2023 Protein Ql (U) Negative Negative [facility] Urine blood detectionOrdered By: Marcos Brown on 07-02-2023 RBC Ql (U) 10 /ul Negative [facility] Urine clarityOrdered By: Pet mitul Brown on 07-02-2023 Clarity (U) Sl. Cloudy Clear [facility] Urine color determinationOrd ered By: Marcos Brown on 07-02-2023 Color (U) Yellow Yellow [facility] Urine glucose detectionOrder ed By: Marcos Brown on 07-02-2023 Glucose Ql (U) Normal mg/dl Normal [facility] Urine leukocyte esterase det ection by dipstickOrdered By: Marcos Brown on 07-02-2023 Leukocyte esterase Test strip Ql (U) 500 /ul Negative [facility] Urine pHOrdered By: Marcos wild on 07-02-2023 pH (U) 6.0 [pH] 5.0 - 8.0 [facility] Urine specific gravity measu rementOrdered By: Marcos Brown on 07-02-2023 Specific gravity (U) [Rel density] 1.015 1.002-1.030 [facility] Urobilinogen Auto test strip Ql (U)Ordered By: Marcos Brown on 07-02-2023 Urobilinogen Ql (U) Normal mg/dl Normal [facility] Basophil percentageOrdered B y: Marcos Brown on 06-26-2023 Chloride [Moles/Vol] 110 mmol/L 98-107 [facility] Glucose [Mass/Vol] 89 mg/dL 74-106 [facility] Potassium [Moles/Vol] 3.4 mmol/L 3.5-5.1 [facility] Sodium [Moles/Vol] 143 mmol/L 136-145 [facility] WBC (Bld) [#/Vol] 5.7 10*3/uL 4.4-11.0 [facility] Blood erythrocytes count (nu mber/volume)Ordered By: Marcos Brown on 06-26-2023 RBC (Bld) [#/Vol] 3.69 10*6/uL 4.2-5.4 [facility] Blood hemoglobin measurement (mass/volume)Ordered By: Marcos Brown on 06-26-2023 Hemoglobin (Bld) [Mass/Vol] 11.1 g/dL 12.0-15.0 [facility] Blood platelet mean volumeOr dered By: Marcos Brown on 06-26-2023 Platelet mean volume (Bld) [Entitic vol] 9.8 fL 6.2-12.0 [facility] Determination of erythrocyte mean corpuscular volume (MCV)Ordered By: Marcos Brown on 06-26-2023 MCV (RBC) [Entitic vol] 93.2 fL 81-99 [facility] Hematocrit Auto (Bld) [Volum e fraction]Ordered By: Marcos Brown on 06-26-2023 Hematocrit (Bld) [Volume fraction] 34.4 % 37-47 [facility] - Chemistry and C hemistry - challengeOrdered By: Marcos Brown on 06-26-2023 CO2 [Moles/Vol] 30.0 mmol/L 21.0-32.0 [facility] Urea nitrogen/Creatinine [Mass ratio] 28.3 mg/mg 10-20 [facility] - Hematology and Cell countsOrdered By: Marcos Brown on 06-26-2023 Erythrocyte distribution width (RBC) [Entitic vol] 46.0 fL 35.1-43.9 [facility] Erythrocyte distribution width (RBC) [Ratio] 13.5 % 11.6-14.6 [facility] MCH (RBC) [Entitic mass] 30.1 pg 27.0-32.0 [facility] MCHC Auto (RBC) [Mass/Vol]Or dered By: Marcos Brown on 06-26-2023 MCHC (RBC) [Mass/Vol] 32.3 g/dL 32- [facility] No Panel InformationOrdered By: Marcos Brown on 06-26-2023 Estimated GFR (MDRD) Amer 64 mL/min >60 [facility] Comment on above: GFR Calc Estimated GFR (MDRD) Non-Af Amer 53 mL/min >60 [facility] Comment on above: Non- GFR Calc Platelets bldOrdered By: Daisha Brown on 06-26-2023 Platelets (Bld) [#/Vol] 175 10*3/uL 150-450 [facility] Serum or plasma calcium thanh urement (mass/volume)Ordered By: Marcos Brown on 06-26-2023 Calcium [Mass/Vol] 8.9 mg/dL 8.5-10.1 [facility] Serum or plasma creatinine m easurement (mass/volume)Ordered By: Marcos Brown on 06-26-2023 Creatinine [Mass/Vol] 1.06 mg/dL 0.55-1.02 [facility] Comment on above: The validity of the calculated GFR & GFRAA in patients over 70 years has not been determined. Clinical correlation is essential. Serum or plasma urea nitroge n measurement (mass/volume)Ordered By: Marcos Brown on 06-26-2023 Urea nitrogen [Mass/Vol] 30 mg/dL 7-18 [facility] Thin prep Papanicolaou smear with manual screeningOrdered By: Marcos Brown on 06-26-2023 Thin prep Papanicolaou smear with manual screening 3 5-15 [facility] Basophil percentageOrdered B y: Marcos Brown on 04-16-2023 Basophil percentage 0 SEEN /hpf 0-5 [facility] Bilirubin Test strip Ql (U)O rdered By: Marcos Brown on 04-16-2023 Bilirubin Ql (U) Negative Negative [facility] Culture, urineOrdered By: Donnie Eugene on 04-16-2023 Bacteria identified Cx Nom (U) Culture exhibits no growth. [facility] Ketones Test strip Ql (U)Ord ered By: Marcos Brown on 04-16-2023 Ketones Ql (U) Negative Negative [facility] Mucus LM Ql (Urine sed)Order ed By: Marcos Brown on 04-16-2023 Mucus Ql (Urine sed) 0 SEEN /hpf [facility] Nitrite Test strip Ql (U)Ord ered By: Marcos Brown on 04-16-2023 Nitrite Ql (U) Negative Negative [facility] Protein Test strip Ql (U)Ord ered By: Marcos Brown on 04-16-2023 Protein Ql (U) Negative Negative [facility] Squamous epithelial cells de tection in urine sediment by light microscopyOrdered By: Marcos Brown on 04-16-2023 Epithelial cells.squamous LM Ql (Urine sed) 0 SEEN /hpf 5-10 [facility] Urine blood detectionOrdered By: Marcso Brown on 04-16-2023 RBC Ql (U) Negative Negative [facility] RBC Ql (U) 0 SEEN /hpf 0-5 [facility] Urine clarityOrdered By: Daisha Brown on 04-16-2023 Clarity (U) Clear Clear [facility] Urine color determinationOrd ered By: Marcos Brown on 04-16-2023 Color (U) Yellow Yellow [facility] Urine glucose detectionOrder ed By: Marcos Brown on 04-16-2023 Glucose Ql (U) Normal mg/dl Normal [facility] Urine leukocyte esterase det ection by dipstickOrdered By: Marcos Brown on 04-16-2023 Leukocyte esterase Test strip Ql (U) Negative Negative [facility] Urine pHOrdered By: Marcos wild on 04-16-2023 pH (U) 6.0 [pH] 5.0 - 8.0 [facility] Urine sediment bacteria coun t by microscopy (number/high power field)Ordered By: Marcos Brown on 04-16-2023 Bacteria LM.HPF (Urine sed) [#/Area] 0 /[HPF] None Seen [facility] Urine specific gravity measu rementOrdered By: Marcos Brown on 04-16-2023 Specific gravity (U) [Rel density] 1.010 1.002-1.030 [facility] Urobilinogen Auto test strip Ql (U)Ordered By: Marcos Brown on 04-16-2023 Urobilinogen Ql (U) Normal mg/dl Normal [facility] CNOVon 04-14-2023 CNOV Office Visit (UROLSF) MYRNA SARAVIA ([id number]) 1945 F Date Time Provider Department 04/14/23 2:45 PM LAHSANDA ALBRECHT [facility] During your visit today, we recorded the following information about you: Temperature Pulse Blood pressure 97.9 degrees 66/minute 112/60 Lashanda Albrecht APRN.ONLINE MARKETING STRATEGIST 04/14/2023 3:56 PM Signed ESTABLISHED PATIENT OFFICE VISIT HISTORY OF PRESENT ILLNESS Myrna Saravia is a 78 year old female who presents today in f/u. Patient with a h/o urinary retention, UTI, CVA. Patient presents today in f/u. Patient now at [facility]. Recent UTI on 04/02/23. Finished a course of macrobid on 04/10/23. Patient's daughter feels her UTI has not resolved. She continues to have malodorous urine. No fever or chills. No gross hematuria. No dysuria. Still difficult for patient to feel her bladder. Does not have the urge to void most of the time. She is now being taken to the bathroom most of the time during the day at the [facility]. Mostly has incontinence into her depends. LAB RESULTS Creatinine Date Value Ref Range Status 12/09/2022 0.99 (H) 0.58 - 0.96 mg/dL Final No results found for: PSA Color (no units) Date Value 12/03/2022 Yellow Clarity (no units) Date Value 12/03/2022 Clear Glucose, Urine (no units) Date Value 12/03/2022 Negative Bilirubin, Urine (no units) Date Value 12/03/2022 Negative Ketones, Urine (no units) Date Value 12/03/2022 Negative Specific [place], Ur (no units) Date Value 12/03/2022 >=1.030 Hemoglobin/Blood,Ur (no units) Date Value 12/03/2022 Negative pH, Urine (no units) Date Value 12/03/2022 6.0 Protein, Urine (no units) Date Value 12/03/2022 Negative Urobilinogen (no units) Date Value 12/03/2022 0.2 EU/dL Nitrites (no units) Date Value 12/03/2022 Negative Leuk Esterase (no units) Date Value 12/03/2022 Negative MEDICATIONS: SACCHAROMYCES BOULARDII-FOS ORAL Take by mouth. MUCUS-CHEST CONGESTION 100 mg/5 mL syrup chlorthalidone (HYGROTON) 25 mg tablet polyethylene glycol 3350 17 gram/dose powder Take 17 g by mouth at bedtime as needed. acetaminophen (TYLENOL) 325 mg tablet Take 650 mg by mouth every 6 hours as needed. losartan (COZAAR) 50 mg tablet Take 50 mg by mouth once daily. magnesium hydroxide (EX-LAX MILK OF MAGNESIA ORAL) Take by mouth. mirtazapine (REMERON) 15 mg tablet Take 15 mg by mouth daily at bedtime. aspirin 81 mg chewable tablet 1 tablet by ORAL/FEEDING TUBE route once daily. atorvastatin (LIPITOR) 40 mg tablet 1 tablet by ORAL/FEEDING TUBE route daily at bedtime. cefdinir (OMNICEF) 300 mg capsule [employer] 10 billion cell -200 mg capsule clopidogrel (PLAVIX) 75 mg tablet 1 tablet by ORAL/FEEDING TUBE route once daily for 88 doses. lactobacillus rhamnosus (CULTURELLE) 10 billion cell capsule Take 1 capsule by mouth once daily. senna-docusate (SENNA-S) 8.6-50 mg per tablet 1 tablet by ORAL/FEEDING TUBE route twice daily. REVIEW OF SYSTEMS CONSTITUTIONAL: Patient reports no recent fever or weight loss CARDIOVASCULAR: No chest pain, palpitations or ankle edema. RESPIRATORY: No wheezing, frequent cough or shortness of breath GENITOURINARY: See HPI HISTORIES PAST MEDICAL HISTORY Diagnosis Date Hypertension Intracranial vascular stenosis History reviewed. No pertinent family history. History reviewed. No pertinent surgical history. SOCIAL HISTORY Social History Tobacco Use Smoking status: Never Smokeless tobacco: Never Substance Use Topics Alcohol use: Never Drug use: Never PHYSICAL EXAMINATION General appearance: Well appearing, alert, in no acute distress, well-hydrated, well nourished.. BACK: not examined. MUSCULOSKELETAL: Negative for joint pain or swelling. RESPIRATORY: Normal respiratory effort. SKIN: Normal color, no rash, no lesions.. ASSESSMENT/PLAN: 1. Retention of urine - ICD9: 788.20, ICD10: R33.9 2. Urinary tract infection with hematuria, site unspecified - ICD9: 599.0, 599.70, ICD10: N39.0, R31.9 -We will repeat a cath culture from the facility this 04/16/2023. -We will follow-up with her in 6 months or sooner if any issues. Lashanda Albrecht APRN.JANICE More than half of todays over 40 minute [id number] office visit was spent in counselling/coordina tion of care Lashanda Albrecht APRN.CNP 04/14/2023 3:33 PM Signed Please recheck a urine culture on patient this 04/16/2023. Okay to use a clean hat. Please straight cath patient if unable to have her void into a specimen cup or hat. Urine culture orders provided. Please try to give patient opportunity to void on the toilet during the day. We will continue to monitor UTI symptoms. Please call urology with any questions. Lashanda Albrecht APRN.ONLINE MARKETING STRATEGIST [phone] Referring Provider: SELF [[id number]] Allergies As of Date: 04/14/2023 Noted Allergy (more content not included)... Normal [facility] Culture, urineOrdered By: Donnie Eugene on 04-01-2023 Bacteria identified Cx Nom (U) Escherichia coli [facility] Bilirubin Test strip Ql (U)O rdered By: Marcos rBown on 03-31-2023 Bilirubin Ql (U) Negative Negative [facility] Culture, urineOrdered By: Donnie Eugene on 03-31-2023 Bacteria identified Cx Nom (U) Escherichia coli [facility] Ketones Test strip Ql (U)Ord ered By: Marcos Brown on 03-31-2023 Ketones Ql (U) Negative Negative [facility] Nitrite Test strip Ql (U)Ord ered By: Marcos Brown on 03-31-2023 Nitrite Ql (U) Positive Negative [facility] Protein Test strip Ql (U)Ord ered By: Marcos Brown on 03-31-2023 Protein Ql (U) Negative Negative [facility] Urine blood detectionOrdered By: Marcos Brown on 03-31-2023 RBC Ql (U) Negative Negative [facility] Urine clarityOrdered By: Daisha Brown on 03-31-2023 Clarity (U) Clear Clear [facility] Urine color determinationOrd ered By: Marcos Brown on 03-31-2023 Color (U) Yellow Yellow [facility] Urine glucose detectionOrder ed By: Marcos Brown on 03-31-2023 Glucose Ql (U) Normal mg/dl Normal [facility] Urine leukocyte esterase det ection by dipstickOrdered By: Marcos Brown on 03-31-2023 Leukocyte esterase Test strip Ql (U) 100 /ul Negative [facility] Urine pHOrdered By: Marcos wild on 03-31-2023 pH (U) 5.0 [pH] 5.0 - 8.0 [facility] Urine specific gravity measu rementOrdered By: Marcos Brown on 03-31-2023 Specific gravity (U) [Rel density] 1.020 1.002-1.030 [facility] Urobilinogen Auto test strip Ql (U)Ordered By: Marcos Brown on 03-31-2023 Urobilinogen Ql (U) Normal mg/dl Normal [facility] Basophil percentageOrdered B y: Marcos Brown on 03-27-2023 Chloride [Moles/Vol] 110 mmol/L 98-107 [facility] Glucose [Mass/Vol] 88 mg/dL 74-106 [facility] Potassium [Moles/Vol] 3.4 mmol/L 3.5-5.1 [facility] Sodium [Moles/Vol] 143 mmol/L 136-145 [facility] WBC (Bld) [#/Vol] 4.9 10*3/uL 4.4-11.0 [facility] Blood erythrocytes count (nu mber/volume)Ordered By: Marcos Brown on 03-27-2023 RBC (Bld) [#/Vol] 3.66 10*6/uL 4.2-5.4 [facility] Blood hemoglobin measurement (mass/volume)Ordered By: Marcos Brown on 03-27-2023 Hemoglobin (Bld) [Mass/Vol] 11.4 g/dL 12.0-15.0 [facility] Blood platelet mean volumeOr dered By: Marcos Brown on 03-27-2023 Platelet mean volume (Bld) [Entitic vol] 9.7 fL 6.2-12.0 [facility] Determination of erythrocyte mean corpuscular volume (MCV)Ordered By: Marcos Brown on 03-27-2023 MCV (RBC) [Entitic vol] 96.7 fL 81-99 [facility] Hematocrit Auto (Bld) [Volum e fraction]Ordered By: Marcos Brown on 03-27-2023 Hematocrit (Bld) [Volume fraction] 35.4 % 37-47 [facility] Laboratory - Chemistry and C hemistry - challengeOrdered By: Marcos Brown on 03-27-2023 CO2 [Moles/Vol] 32.0 mmol/L 21.0-32.0 [facility] Urea nitrogen/Creatinine [Mass ratio] 21.8 mg/mg 10-20 [facility] Laboratory - Hematology and Cell countsOrdered By: Marcos Brown on 03-27-2023 Erythrocyte distribution width (RBC) [Entitic vol] 49.5 fL 35.1-43.9 [facility] Erythrocyte distribution width (RBC) [Ratio] 14.0 % 11.6-14.6 [facility] MCH (RBC) [Entitic mass] 31.1 pg 27.0-32.0 [facility] MCHC Auto (RBC) [Mass/Vol]Or dered By: Marcos Brown on 03-27-2023 MCHC (RBC) [Mass/Vol] 32.2 g/dL 32-36 [facility] No Panel InformationOrdered By: Marcos Brown on 03-27-2023 Estimated GFR (MDRD) Amer 68 mL/min >60 [facility] Comment on above: GFR Calc Estimated GFR (MDRD) Non-Af Amer 56 mL/min >60 [facility] Comment on above: Non- GFR Calc Platelets bldOrdered By: Daisha Brown on 03-27-2023 Platelets (Bld) [#/Vol] 162 10*3/uL 150-450 [facility] Serum or plasma calcium thanh urement (mass/volume)Ordered By: Marcos Brown on 03-27-2023 Calcium [Mass/Vol] 8.9 mg/dL 8.5-10.1 [facility] Serum or plasma creatinine m easurement (mass/volume)Ordered By: Marcos Brown on 03-27-2023 Creatinine [Mass/Vol] 1.01 mg/dL 0.55-1.02 [facility] Comment on above: The validity of the calculated GFR & GFRAA in patients over 70 years has not been determined. Clinical correlation is essential. Serum or plasma urea nitroge n measurement (mass/volume)Ordered By: Marcos Brown on 03-27-2023 Urea nitrogen [Mass/Vol] 22 mg/dL 7-18 [facility] Thin prep Papanicolaou smear with manual screeningOrdered By: Marcos Brown on 03-27-2023 Thin prep Papanicolaou smear with manual screening 1 5-15 [facility] Basophil percentageOrdered B y: Marcos Brown on 03-20-2023 Chloride [Moles/Vol] 110 mmol/L 98-107 [facility] Glucose [Mass/Vol] 83 mg/dL 74-106 [facility] Potassium [Moles/Vol] 3.4 mmol/L 3.5-5.1 [facility] Sodium [Moles/Vol] 142 mmol/L 136-145 [facility] WBC (Bld) [#/Vol] 4.9 10*3/uL 4.4-11.0 [facility] Blood erythrocytes count (nu mber/volume)Ordered By: Marcos Brown on 03-20-2023 RBC (Bld) [#/Vol] 3.63 10*6/uL 4.2-5.4 [facility] Blood hemoglobin measurement (mass/volume)Ordered By: Marcos Brown on 03-20-2023 Hemoglobin (Bld) [Mass/Vol] 11.2 g/dL 12.0-15.0 [facility] Blood platelet mean volumeOr dered By: Marcos Brown on 03-20-2023 Platelet mean volume (Bld) [Entitic vol] 9.5 fL 6.2-12.0 [facility] Determination of erythrocyte mean corpuscular volume (MCV)Ordered By: Marcos Brown on 03-20-2023 MCV (RBC) [Entitic vol] 95.9 fL 81-99 [facility] Hematocrit Auto (Bld) [Volum e fraction]Ordered By: Marcos Brown on 03-20-2023 Hematocrit (Bld) [Volume fraction] 34.8 % 37-47 [facility] Laboratory - Chemistry and C hemistry - challengeOrdered By: Marcos Brown on 03-20-2023 CO2 [Moles/Vol] 30.0 mmol/L 21.0-32.0 [facility] Urea nitrogen/Creatinine [Mass ratio] 24.5 mg/mg 10-20 [facility] Laboratory - Hematology and Cell countsOrdered By: Marcos Brown on 03-20-2023 Erythrocyte distribution width (RBC) [Entitic vol] 49.2 fL 35.1-43.9 [facility] Erythrocyte distribution width (RBC) [Ratio] 13.9 % 11.6-14.6 [facility] MCH (RBC) [Entitic mass] 30.9 pg 27.0-32.0 [facility] MCHC Auto (RBC) [Mass/Vol]Or dered By: Marcos Brown on 03-20-2023 MCHC (RBC) [Mass/Vol] 32.2 g/dL 32-36 [facility] No Panel InformationOrdered By: Marcos Brown on 03-20-2023 Estimated GFR (MDRD) Amer 61 mL/min >60 [facility] Comment on above: GFR Calc Estimated GFR (MDRD) Non-Af Amer 51 mL/min >60 [facility] Comment on above: Non- GFR Calc Platelets bldOrdered By: Daisha Brown on 03-20-2023 Platelets (Bld) [#/Vol] 157 10*3/uL 150-450 [facility] Serum or plasma calcium thanh urement (mass/volume)Ordered By: Marcos Brown on 03-20-2023 Calcium [Mass/Vol] 9.0 mg/dL 8.5-10.1 [facility] Serum or plasma creatinine m easurement (mass/volume)Ordered By: Marcos Brown on 03-20-2023 Creatinine [Mass/Vol] 1.10 mg/dL 0.55-1.02 [facility] Comment on above: The validity of the calculated GFR & GFRAA in patients over 70 years has not been determined. Clinical correlation is essential. Serum or plasma urea nitroge n measurement (mass/volume)Ordered By: Marcos Brown on 03-20-2023 Urea nitrogen [Mass/Vol] 27 mg/dL 7-18 [facility] Thin prep Papanicolaou smear with manual screeningOrdered By: Marcos Brown on 03-20-2023 Thin prep Papanicolaou smear with manual screening 2 5-15 [facility] Basophil percentageOrdered B y: Marcos Brown on 03-13-2023 Chloride [Moles/Vol] 109 mmol/L 98-107 [facility] Glucose [Mass/Vol] 96 mg/dL 74-106 [facility] Potassium [Moles/Vol] 3.3 mmol/L 3.5-5.1 [facility] Sodium [Moles/Vol] 143 mmol/L 136-145 [facility] WBC (Bld) [#/Vol] 5.1 10*3/uL 4.4-11.0 [facility] Blood erythrocytes count (nu mber/volume)Ordered By: Marcos Brown on 03-13-2023 RBC (Bld) [#/Vol] 3.73 10*6/uL 4.2-5.4 [facility] Blood hemoglobin measurement (mass/volume)Ordered By: Marcos Brown on 03-13-2023 Hemoglobin (Bld) [Mass/Vol] 11.3 g/dL 12.0-15.0 [facility] Blood platelet mean volumeOr dered By: Marcos Brown on 03-13-2023 Platelet mean volume (Bld) [Entitic vol] 9.8 fL 6.2-12.0 [facility] Determination of erythrocyte mean corpuscular volume (MCV)Ordered By: Marcos Brown on 03-13-2023 MCV (RBC) [Entitic vol] 95.4 fL 81-99 [facility] Hematocrit Auto (Bld) [Volum e fraction]Ordered By: Marcos Brown on 03-13-2023 Hematocrit (Bld) [Volume fraction] 35.6 % 37-47 [facility] Laboratory - Chemistry and C hemistry - challengeOrdered By: Marcos Brown on 03-13-2023 CO2 [Moles/Vol] 30.0 mmol/L 21.0-32.0 [facility] Urea nitrogen/Creatinine [Mass ratio] 31.3 mg/mg 10-20 [facility] Laboratory - Hematology and Cell countsOrdered By: Marcos Brown on 03-13-2023 Erythrocyte distribution width (RBC) [Entitic vol] 49.2 fL 35.1-43.9 [facility] Erythrocyte distribution width (RBC) [Ratio] 14.0 % 11.6-14.6 [facility] MCH (RBC) [Entitic mass] 30.3 pg 27.0-32.0 [facility] MCHC Auto (RBC) [Mass/Vol]Or dered By: Marcos Brown on 03-13-2023 MCHC (RBC) [Mass/Vol] 31.7 g/dL 32-36 [facility] No Panel InformationOrdered By: Marcos Brown on 03-13-2023 Estimated GFR (MDRD) Amer 58 mL/min >60 [facility] Comment on above: GFR Calc Estimated GFR (MDRD) Non-Af Amer 48 mL/min >60 [facility] Comment on above: Non- GFR Calc Platelets bldOrdered By: Pet mitul Brown on 03-13-2023 Platelets (Bld) [#/Vol] 151 10*3/uL 150-450 [facility] Serum or plasma calcium thanh urement (mass/volume)Ordered By: Marcos Brown on 03-13-2023 Calcium [Mass/Vol] 8.9 mg/dL 8.5-10.1 [facility] Serum or plasma creatinine m easurement (mass/volume)Ordered By: Marcos Brown on 03-13-2023 Creatinine [Mass/Vol] 1.15 mg/dL 0.55-1.02 [facility] Comment on above: The validity of the calculated GFR & GFRAA in patients over 70 years has not been determined. Clinical correlation is essential. Serum or plasma urea nitroge n measurement (mass/volume)Ordered By: Marcos Brown on 03-13-2023 Urea nitrogen [Mass/Vol] 36 mg/dL 7-18 [facility] Thin prep Papanicolaou smear with manual screeningOrdered By: Marcos Brown on 03-13-2023 Thin prep Papanicolaou smear with manual screening 4 5-15 [facility] Basophil percentageOrdered B y: Marcos Brown on 02-10-2023 Bilirubin [Mass/Vol] 0.50 mg/dL 0.20-1.00 [facility] Comment on above: For patients on eltr ombopag therapy, use of Dimension [place] TBIL is not recommended. Chloride [Moles/Vol] 108 mmol/L 98-107 [facility] Cholesterol [Mass/Vol] 94 mg/dL <200 [facility] Comment on above: <200 mg/dL Desirable 200-240 mg/dL Borderline >240 mg/dL High Risk Glucose [Mass/Vol] 94 mg/dL 74-106 [facility] Potassium [Moles/Vol] 3.6 mmol/L 3.5-5.1 [facility] Protein [Mass/Vol] 5.4 g/dL 6.4-8.2 [facility] Sodium [Moles/Vol] 142 mmol/L 136-145 [facility] Triglyceride [Mass/Vol] 83 mg/dL <199 [facility] Comment on above: The drugs N-Acetylcy steine and Metamizole may falsely depress this assay.Serum Triglycerides Reference Interval Normal <150 mg/dL Borderline high 150 - 199 mg/dL High 200 - 499 mg/dL Very High > or = 500 mg/dL WBC (Bld) [#/Vol] 5.2 10*3/uL 4.4-11.0 [facility] Blood erythrocytes count (nu mber/volume)Ordered By: Marcos Brown on 02-10-2023 RBC (Bld) [#/Vol] 3.44 10*6/uL 4.2-5.4 [facility] Blood hemoglobin measurement (mass/volume)Ordered By: Marcos Brown on 02-10-2023 Hemoglobin (Bld) [Mass/Vol] 10.3 g/dL 12.0-15.0 [facility] Blood platelet mean volumeOr dered By: Marcos Brown on 02-10-2023 Platelet mean volume (Bld) [Entitic vol] 9.8 fL 6.2-12.0 [facility] Determination of erythrocyte mean corpuscular volume (MCV)Ordered By: Marcos Brown on 02-10-2023 MCV (RBC) [Entitic vol] 95.9 fL 81-99 [facility] Hematocrit Auto (Bld) [Volum e fraction]Ordered By: Marcos Brown on 02-10-2023 Hematocrit (Bld) [Volume fraction] 33.0 % 37-47 [facility] Laboratory - Chemistry and C hemistry - challengeOrdered By: Marcos Brown on 02-10-2023 ALP [Catalytic activity/Vol] 53 U/L 45-117 [facility] ALT [Catalytic activity/Vol] 14 U/L 13-56 [facility] CO2 [Moles/Vol] 31.0 mmol/L 21.0-32.0 [facility] Globulin (S) [Mass/Vol] 2.9 g/dL 2.2-4.2 [facility] Urea nitrogen/Creatinine [Mass ratio] 26.0 mg/mg 10-20 [facility] Laboratory - Hematology and Cell countsOrdered By: Marcos Brown on 02-10-2023 Erythrocyte distribution width (RBC) [Entitic vol] 49.5 fL 35.1-43.9 [facility] Erythrocyte distribution width (RBC) [Ratio] 14.1 % 11.6-14.6 [facility] MCH (RBC) [Entitic mass] 29.9 pg 27.0-32.0 [facility] Auto (RBC) [Mass/Vol]Or dered By: Marcos Brown on 02-10-2023 MCHC (RBC) [Mass/Vol] 31.2 g/dL 32-36 [facility] No Panel InformationOrdered By: Marcos Brown on 02-10-2023 Estimated GFR (MDRD) Amer 54 mL/min >60 [facility] Comment on above: GFR Calc Estimated GFR (MDRD) Non-Af Amer 45 mL/min >60 [facility] Comment on above: Non- GFR Calc Thyroid Stimulating Hormone (TSH) 1.65 uIU/mL 0.358-3.74 [facility] Platelets bldOrdered By: Daisha Brown on 02-10-2023 Platelets (Bld) [#/Vol] 185 10*3/uL 150-450 [facility] Serum or plasma albumin thanh urement (mass/volume)Ordered By: Marcos Brown on 02-10-2023 Albumin [Mass/Vol] 2.5 g/dL 3.2-5.0 [facility] Serum or plasma albumin/glob ulin mass ratioOrdered By: Marcos Brown on 02-10-2023 Albumin/Globulin [Mass ratio] 0.9 {ratio} 0.9-2.4 [facility] Serum or plasma calcium thanh urement (mass/volume)Ordered By: Marcos Brown on 02-10-2023 Calcium [Mass/Vol] 8.7 mg/dL 8.5-10.1 [facility] Serum or plasma cholesterol in HDL measurement (mass/volume)Ordered By: Marcos Brown on 02-10-2023 Cholesterol in HDL [Mass/Vol] 39 mg/dL >40 [facility] Comment on above: The drugs N-Acetylcy steine and Metamizole may falsely depress this assay. Reference Range HDL <40 mg/dL Low HDL Cholesterol HDL >or= 60 mg/dL High HDL Cholesterol Serum or plasma cholesterol in VLDL measurement (mass/volume)Ordered By: Marcos Brown on 02-10-2023 Cholesterol in VLDL [Mass/Vol] 17 mg/dL 5-40 [facility] Serum or plasma creatinine m easurement (mass/volume)Ordered By: Marcos Brown on 02-10-2023 Creatinine [Mass/Vol] 1.23 mg/dL 0.55-1.02 [facility] Comment on above: The validity of the calculated GFR & GFRAA in patients over 70 years has not been determined. Clinical correlation is essential. Serum or plasma low density lipoprotein (LDL) cholesterol measurement (mass/volume)Ordered By: Marcos Borwn on 02-10-2023 Cholesterol in LDL [Mass/Vol] 38 mg/dL 0-130 [facility] Serum or plasma urea nitroge n measurement (mass/volume)Ordered By: Marcos Brown on 02-10-2023 Urea nitrogen [Mass/Vol] 32 mg/dL 7-18 [facility] Thin prep Papanicolaou smear with manual screeningOrdered By: Marcos Brown on 02-10-2023 Thin prep Papanicolaou smear with manual screening 11 U/L 15-37 [facility] Thin prep Papanicolaou smear with manual screening 3 5-15 [facility] CNOVon 01-31-2023 CNOV Office Visit (UROLSF) MYRNA SARAVIA ([id number]) 1945 F Date Time Provider Department 01/31/23 1:15 PM LASHANDA ALBRECHT [facility] During your visit today, we recorded the following information about you: Pulse Blood pressure Weight Height 77/minute 114/56 75.3 kg 1.651 m Lashanda Albrecht APRN.ONLINE MARKETING STRATEGIST 01/31/2023 2:16 PM Signed ESTABLISHED PATIENT OFFICE VISIT HISTORY OF PRESENT ILLNESS Myrna Saravia is a 77 year old female who presents today in f/u. 01/10/23: Patient with a h/o CVA, urinary retention, UTI. She presents today with her daughter in f/u. Patient states she has been able to void on her home in the facility get her up to the bathroom. She was able to void about an hour ago before her appointment, her PVR is 25 cc today. Denies any gross hematuria. No fever or chills. No dysuria. We will continue to do timed voiding and PVR checks. We will ask the facility to do a urine culture. Today's note: Patient presents today in f/u of urinary retention, UTI, CVA. Patient and her daughter feel patient has had some improvement in her bladder issues. She has had an increase in urinary urgency, she can feel her bladder better now. Has the urge to void. She has had some urge incontinence recently, not able to make it to the bathroom in time. Patient can not always make it to the bathroom, has to rely on staff to get her to the bathroom. Has not had to be straight cathed recently. No gross hematuria. No dysuria. UTI on 01/11/23, treated with omniceff. Repeat UA last week was negative. LAB RESULTS Creatinine Date Value Ref Range Status 12/09/2022 0.99 (H) 0.58 - 0.96 mg/dL Final No results found for: PSA Color (no units) Date Value 12/03/2022 Yellow Clarity (no units) Date Value 12/03/2022 Clear Glucose, Urine (no units) Date Value 12/03/2022 Negative Bilirubin, Urine (no units) Date Value 12/03/2022 Negative Ketones, Urine (no units) Date Value 12/03/2022 Negative Specific [place], Ur (no units) Date Value 12/03/2022 >=1.030 Hemoglobin/Blood,Ur (no units) Date Value 12/03/2022 Negative pH, Urine (no units) Date Value 12/03/2022 6.0 Protein, Urine (no units) Date Value 12/03/2022 Negative Urobilinogen (no units) Date Value 12/03/2022 0.2 EU/dL Nitrites (no units) Date Value 12/03/2022 Negative Leuk Esterase (no units) Date Value 12/03/2022 Negative MEDICATIONS: MUCUS-CHEST CONGESTION 100 mg/5 mL syrup chlorthalidone (HYGROTON) 25 mg tablet CULTUREE DIGESTIVE HEALTH 10 billion cell -200 mg capsule acetaminophen (TYLENOL) 325 mg tablet Take 650 mg by mouth every 6 hours as needed. losartan (COZAAR) 50 mg tablet Take 50 mg by mouth once daily. magnesium hydroxide (EX-LAX MILK OF MAGNESIA ORAL) Take by mouth. mirtazapine (REMERON) 15 mg tablet Take 15 mg by mouth daily at bedtime. aspirin 81 mg chewable tablet 1 tablet by ORAL/FEEDING TUBE route once daily. atorvastatin (LIPITOR) 40 mg tablet 1 tablet by ORAL/FEEDING TUBE route daily at bedtime. clopidogrel (PLAVIX) 75 mg tablet 1 tablet by ORAL/FEEDING TUBE route once daily for 88 doses. senna-docusate (SENNA-S) 8.6-50 mg per tablet 1 tablet by ORAL/FEEDING TUBE route twice daily. cefdinir (OMNICEF) 300 mg capsule (Patient not taking: Reported on 01/31/2023) polyethylene glycol 3350 17 gram/dose powder Take 17 g by mouth at bedtime as needed. (Patient not taking: Reported on 01/10/2023) hydrALAZINE (APRESOLINE) 50 mg tablet Take 1 tablet by mouth every 8 hours. (Patient not taking: Reported on 12/20/2022) amLODIPine (NORVASC) 10 mg tablet 1 tablet by ORAL/FEEDING TUBE route once daily. (Patient not taking: Reported on 01/10/2023) lactobacillus rhamnosus (CULTURELLE) 10 billion cell capsule Take 1 capsule by mouth once daily. (Patient not taking: Reported on 01/10/2023) REVIEW OF SYSTEMS CONSTITUTIONAL: Patient reports no recent fever or weight loss CARDIOVASCULAR: No chest pain, palpitations or ankle edema. RESPIRATORY: No wheezing, frequent cough or shortness of breath GENITOURINARY: See HPI HISTORIES PAST MEDICAL HISTORY Diagnosis Date Hypertension Intracranial vascular stenosis History reviewed. No pertinent family history. History reviewed. No pertinent surgical history. SOCIAL HISTORY Social History Tobacco Use Smoking status: Never Smokeless tobacco: Never Substance Use Topics Alcohol use: Never Drug use: Never PHYSICAL EXAMINATION General appearance: Well appearing, alert, in no acute distress, well-hydrated, well nourished.. BACK: not examined. MUSCULOSKELETAL: Negative for joint pain or swelling. RESPIRATORY: Normal respiratory effort. SKIN: Normal color, no rash, no lesions.. ASSESSMENT/PLAN: 1. Retention of urine - ICD9: 788.20, ICD10: R33.9 - continue current orders. - f/u in 8 weeks. 2. Urinary tract infection with hematuria, site unspecified - ICD (more content not included)... Normal [facility] CNOVon 01-10-2023 CNOV Office Visit (UROLSF) MYRNA SARAVIA ([id number]) 1945 F Date Time Provider Department 01/10/23 1:00 PM LASHANDA ALBRECHT During your visit today, we recorded the following information about you: Pulse Blood pressure Weight Height 65/minute 111/73 75.3 kg 1.651 m Lashanda Albrecht APRN.CNP 01/10/2023 2:24 PM Signed ESTABLISHED PATIENT OFFICE VISIT HISTORY OF PRESENT ILLNESS Myrna Saravia is a 77 year old female who presents today in f/u. 12/20/22: Patient referred to urology for urinary retention. Patient with a CVA on 11/16/2022. She developed urinary retention after her CVA. She presents today with her daughter. She denies any voiding issues prior to her stroke. She is currently in rehab at [place]. She does not want to have a Norton catheter in place at this time. Rehab nurses have been doing straight cath for doing a PVR check every 6 hours. She typically has 500 to 600 cc of urine in her bladder at the time of her straight cath. She did have a positive urine culture on 12/03/2022. She has not been treated for her urinary tract infection. Her daughter states that it is difficult for her to feel her bladder. She denies any UTI symptoms. No gross hematuria. No dysuria. No fever or chills. She was started on Remeron after her CVA, they discontinued it yesterday to see if this is contributing to her urinary retention. We discussed treating her urinary tract infection today. We will continue doing PVR checks and straight caths every 6 hours. Today's note: Patient with a h/o CVA, urinary retention, UTI. She presents today with her daughter in f/u. Patient states she has been able to void on her home in the facility get her up to the bathroom. She was able to void about an hour ago before her appointment, her PVR is 25 cc today. Denies any gross hematuria. No fever or chills. No dysuria. We will continue to do timed voiding and PVR checks. We will ask the facility to do a urine culture. LAB RESULTS Creatinine Date Value Ref Range Status 12/09/2022 0.99 (H) 0.58 - 0.96 mg/dL Final No results found for: PSA Color (no units) Date Value 12/03/2022 Yellow Clarity (no units) Date Value 12/03/2022 Clear Glucose, Urine (no units) Date Value 12/03/2022 Negative Bilirubin, Urine (no units) Date Value 12/03/2022 Negative Ketones, Urine (no units) Date Value 12/03/2022 Negative Specific [place], Ur (no units) Date Value 12/03/2022 >=1.030 Hemoglobin/Blood,Ur (no units) Date Value 12/03/2022 Negative pH, Urine (no units) Date Value 12/03/2022 6.0 Protein, Urine (no units) Date Value 12/03/2022 Negative Urobilinogen (no units) Date Value 12/03/2022 0.2 EU/dL Nitrites (no units) Date Value 12/03/2022 Negative Leuk Esterase (no units) Date Value 12/03/2022 Negative MEDICATIONS: chlorthalidone (HYGROTON) 25 mg tablet [facility] 10 billion cell -200 mg capsule acetaminophen (TYLENOL) 325 mg tablet Take 650 mg by mouth every 6 hours as needed. losartan (COZAAR) 50 mg tablet Take 50 mg by mouth once daily. magnesium hydroxide (EX-LAX MILK OF MAGNESIA ORAL) Take by mouth. mirtazapine (REMERON) 15 mg tablet Take 15 mg by mouth daily at bedtime. aspirin 81 mg chewable tablet 1 tablet by ORAL/FEEDING TUBE route once daily. atorvastatin (LIPITOR) 40 mg tablet 1 tablet by ORAL/FEEDING TUBE route daily at bedtime. clopidogrel (PLAVIX) 75 mg tablet 1 tablet by ORAL/FEEDING TUBE route once daily for 88 doses. senna-docusate (SENNA-S) 8.6-50 mg per tablet 1 tablet by ORAL/FEEDING TUBE route twice daily. polyethylene glycol 3350 17 gram/dose powder Take 17 g by mouth at bedtime as needed. (Patient not taking: Reported on 01/10/2023) hydrALAZINE (APRESOLINE) 50 mg tablet Take 1 tablet by mouth every 8 hours. (Patient not taking: No sig reported) amLODIPine (NORVASC) 10 mg tablet 1 tablet by ORAL/FEEDING TUBE route once daily. (Patient not taking: Reported on 01/10/2023) lactobacillus rhamnosus (CULTURELLE) 10 billion cell capsule Take 1 capsule by mouth once daily. (Patient not taking: Reported on 01/10/2023) REVIEW OF SYSTEMS CONSTITUTIONAL: Patient reports no recent fever or weight loss CARDIOVASCULAR: No chest pain, palpitations or ankle edema. RESPIRATORY: No wheezing, frequent cough or shortness of breath GENITOURINARY: See HPI HISTORIES PAST MEDICAL HISTORY Diagnosis Date Hypertension Intracranial vascular stenosis History reviewed. No pertinent family history. History reviewed. No pertinent surgical history. SOCIAL HISTORY Social History Tobacco Use Smoking status: Never Smokeless tobacco: Never Substance Use Topics Alcohol use: Never Drug use: Never PHYSICAL EXAMINATION General appearance: Well appearing, alert, in no acute distress, well-hydrated, well nourished.. BACK: not examined. MUSCULOSKELETAL: Negati (more content not included)... Normal [facility] CNOVon 12-20-2022 CNOV Office Visit (UROLSF) MYRNA SARAVIA ([id number]) 1945 F Date Time Provider Department 12/20/22 10:15 AM LASHANDA ALBRECHT During your visit today, we recorded the following information about you: Pulse Blood pressure Weight Height 63/minute 121/74 75.3 kg 1.651 m Lashanda Albrecht APRN.ONLINE MARKETING STRATEGIST 01/10/2023 10:21 AM Addendum NEW PATIENT HISTORY AND PHYSICAL EXAM HISTORY OF PRESENT ILLNESS Myrna Saravia is a 77 year old female who presents today as a new patient. Patient referred to urology for urinary retention. Patient with a CVA on 11/16/2022. She developed urinary retention after her CVA. She presents today with her daughter. She denies any voiding issues prior to her stroke. She is currently in rehab at [place] [facility]. She does not want to have a Norton catheter in place at this time. Rehab nurses have been doing straight cath for doing a PVR check every 6 hours. She typically has 500 to 600 cc of urine in her bladder at the time of her straight cath. She did have a positive urine culture on 12/03/2022. She has not been treated for her urinary tract infection. Her daughter states that it is difficult for her to feel her bladder. She denies any UTI symptoms. No gross hematuria. No dysuria. No fever or chills. She was started on Remeron after her CVA, they discontinued it yesterday to see if this is contributing to her urinary retention. We discussed treating her urinary tract infection today. We will continue doing PVR checks and straight caths every 6 hours. LAB RESULTS Creatinine Date Value Ref Range Status 12/09/2022 0.99 (H) 0.58 - 0.96 mg/dL Final No results found for: PSA Color (no units) Date Value 12/03/2022 Yellow Clarity (no units) Date Value 12/03/2022 Clear Glucose, Urine (no units) Date Value 12/03/2022 Negative Bilirubin, Urine (no units) Date Value 12/03/2022 Negative Ketones, Urine (no units) Date Value 12/03/2022 Negative Specific [place], Ur (no units) Date Value 12/03/2022 >=1.030 Hemoglobin/Blood,Ur (no units) Date Value 12/03/2022 Negative pH, Urine (no units) Date Value 12/03/2022 6.0 Protein, Urine (no units) Date Value 12/03/2022 Negative Urobilinogen (no units) Date Value 12/03/2022 0.2 EU/dL Nitrites (no units) Date Value 12/03/2022 Negative Leuk Esterase (no units) Date Value 12/03/2022 Negative REVIEW OF SYSTEMS GENERAL:No weight loss, malaise or fevers. HEENT:Negative for frequent or significant headaches, No changes in hearing or vision, no nose bleeds or other nasal problems. RESPIRATORY: Negative for cough, wheezing or shortness of breath. CARDIOVASCULAR: Negative for chest pain, leg swelling or palpitations. GASTROINTESTINAL: Negative for abdominal discomfort, blood in stools or black stools or change in bowel habits. GENITOURINARY: See HPI. MEDICATIONS: losartan (COZAAR) 50 mg tablet Take 50 mg by mouth once daily. magnesium hydroxide (EX-LAX MILK OF MAGNESIA ORAL) Take by mouth. aspirin 81 mg chewable tablet 1 tablet by ORAL/FEEDING TUBE route once daily. atorvastatin (LIPITOR) 40 mg tablet 1 tablet by ORAL/FEEDING TUBE route daily at bedtime. clopidogrel (PLAVIX) 75 mg tablet 1 tablet by ORAL/FEEDING TUBE route once daily for 88 doses. amLODIPine (NORVASC) 10 mg tablet 1 tablet by ORAL/FEEDING TUBE route once daily. lactobacillus rhamnosus (CULTURELLE) 10 billion cell capsule Take 1 capsule by mouth once daily. senna-docusate (SENNA-S) 8.6-50 mg per tablet 1 tablet by ORAL/FEEDING TUBE route twice daily. nitrofurantoin monohydrate and macrocrystal (MACROBID) 100 mg capsule Take 1 capsule by mouth twice daily for 10 days. mirtazapine (REMERON) 15 mg tablet Take 15 mg by mouth daily at bedtime. (Patient not taking: Reported on 12/20/2022) hydrALAZINE (APRESOLINE) 50 mg tablet Take 1 tablet by mouth every 8 hours. (Patient not taking: Reported on 12/20/2022) ALLERGIES Allergen Reactions Amoxicillin Other: See Comments Makes her lethargic Ciprofloxacin Mental Status Change Sulfa (Sulfonamide * Mental Status Change HISTORIES PAST MEDICAL HISTORY Diagnosis Date Hypertension Intracranial vascular stenosis History reviewed. No pertinent surgical history. History reviewed. No pertinent family history. SOCIAL HISTORY Social History Tobacco Use Smoking status: Never Smokeless tobacco: Never Substance Use Topics Alcohol use: Never Drug use: Never BP 121/74 Pulse 63 Ht 165.1 cm (5' 5) Wt 75.3 kg (166 lb) SpO2 99% BMI 27.62 kg/m? PHYSICAL EXAM: General Appearance: Well appearing, alert, in no acute distress, well-hydrated, well nourished. Skin: Skin color, texture, turgor normal, no suspicious rashes or lesions. Back: Normal. ASSESSMENT/PLAN: 1. Arterial ischemic stroke, FREIGHT TRUCKER (posterior cerebral artery), left, acute (HCC) - ICD9: 434.91, ICD10: I63.532 2. R (more content not included)... Normal [facility] Basic metabolic 2000 panelon 12-09-2022 Anion gap [Moles/Vol] 10 mmol/L 9 - 18 mmol/L [facility] Calcium [Mass/Vol] 9.4 mg/dL 8.5 - 10. 2 mg/dL [facility] Chloride [Moles/Vol] 108 mmol/L High 97 - 10 5 mmol/L [facility] CO2 [Moles/Vol] 23 mmol/L 22 - 30 mmol/L [facility] Creatinine [Mass/Vol] 0.99 mg/dL High 0.58 - 0.96 mg/dL [facility] Estimated Glomerular Filtration Rate 58 mL/min/1.73m Low >=60 mL/min/1.73m [facility] Glucose [Mass/Vol] 83 mg/dL 74 - 99 mg/dL [facility] Potassium [Moles/Vol] 4.2 mmol/L 3.7 - 5.1 mmol/L [facility] Sodium [Moles/Vol] 141 mmol/L 136 - 144 mmol/L [facility] Urea nitrogen [Mass/Vol] 40 mg/dL High 7 - 21 mg/d L [facility] Anion gap [Moles/Vol] 10 mmol/L Normal 9-18 [facility] Comment on above: Order Comment: Speci men Type: BLOOD SPECIMENOrdering Facility: [facility] Address: [address] [place] [address] Performed By: #### 2 4321-2 ####BERRIOS LABORATORYCLIA [id number] [place] [address] [place] Calcium [Mass/Vol] 9.4 mg/dL Normal 8.5-10.2 [facility] Comment on above: Order Comment: Speci men Type: BLOOD SPECIMENOrdering Facility: [facility] Address: [address] [place] [address] Performed By: #### 2 4321-2 ####BERRIOS LABORATORYCLIA [id number] [place] [address] [place] Chloride [Moles/Vol] 108 mmol/L High 97-105 [facility] Comment on above: Order Comment: Speci men Type: BLOOD SPECIMENOrdering Facility: [facility] Address: [address] [place] [address] Performed By: #### 2 4321-2 ####BERRIOS LABORATORYCLIA [id number] [place] [id number] [place] CO2 [Moles/Vol] 23 mmol/L Normal 22-30 [facility] Comment on above: Order Comment: Speci men Type: BLOOD SPECIMENOrdering Facility: [facility] Address: [address] [place] [address] Performed By: #### 2 4321-2 ####BERRIOS LABORATORYCLIA [id number] [address] [place] Creatinine [Mass/Vol] 0.99 mg/dL High 0.58-0.96 [facility] Comment on above: Order Comment: Speci men Type: BLOOD SPECIMENOrdering Facility: [facility] Address: [address] [place] [address] Performed By: #### 2 4321-2 ####BERRIOS LABORATORYCLIA [id number] [address] ESTIMATED GLOMERULAR FILTRATION RATE 58 mL/min/1.73m??? Low >=60 [facility] Comment on above: Order Comment: Speci men Type: BLOOD SPECIMENOrdering Facility: [facility] Address: [address] [place] [address] Result Comment: Caroline mated Glomerular Filtration Rate (eGFR) is calculated using the 2020 CKD-EPI creatinine equation. This equation utilizes serum creatinine, sex, and age as parameters. The creatinine assay has traceable calibration to isotope dilution-mass spectrometry. Refer to KDIGO guidelines for clinical interpretation. In patients with unstable renal function, e.g. those with acute kidney injury, the eGFR may not accurately reflect actual GFR. Performed By: #### 2 4321-2 ####BERRIOS LABORATORYCLIA [id number] [place] [address] [place] Glucose [Mass/Vol] 83 mg/dL Normal 74-99 [facility] Comment on above: Order Comment: Speci men Type: BLOOD SPECIMENOrdering Facility: [facility] Address: [address] [place] [address] Result Comment: The [place] [employer] (ADA) provides guidance for cutoff values for fasting glucose and random glucose. The ADA defines fasting as no caloric intake for at least 8 hours. Fasting plasma glucose results between 100 to 125 mg/dL indicate increased risk for diabetes (prediabetes). Fasting plasma glucose results greater than or equal to 126 mg/dL meet the criteria for diagnosis of diabetes. In the absence of unequivocal hyperglycemia, results should be confirmed by repeat testing. In a patient with classic symptoms of hyperglycemia or hyperglycemic crisis, random plasma glucose results greater than or equal to 200 mg/dL meet the criteria for diagnosis of diabetes. Reference: Standards of Medical Care in Diabetes 2016, [place] [employer]. Diabetes Care. 2016.39(Suppl 1). Performed By: #### 2 4321-2 ####BERRIOS LABORATORYCLIA [id number] [place] [address] [place] Potassium [Moles/Vol] 4.2 mmol/L Normal 3.7-5.1 [facility] Comment on above: Order Comment: Jordyn stef Type: BLOOD SPECIMENOrdering Facility: [facility] Address: [address] [place] [address] Performed By: #### 2 4321-2 ####BERRIOS LABORATORYCLIA [id number] [place] [address] [place] Sodium [Moles/Vol] 141 mmol/L Normal 136-144 [facility] Comment on above: Order Comment: Feii men Type: BLOOD SPECIMENOrdering Facility: [facility] Address: [address] [place] [address] Performed By: #### 2 4321-2 ####BERRIOS LABORATORYCLIA [id number] [place] [address] [place] Urea nitrogen [Mass/Vol] 40 mg/dL High 7-21 [facility] Comment on above: Order Comment: Feii men Type: BLOOD SPECIMENOrdering Facility: [facility] Address: [address] [place] [address] Performed By: #### 2 4321-2 ####ZAVALLA LABORATORYCLIA [id number] [place] [address] [place] CBC W Auto Differential pane l (Bld)on 12-09-2022 Basophils (Bld) [#/Vol] 0.04 10*3/uL <0.11 k/uL [facility] Basophils/100 WBC (Bld) 0.8 % C [facility] Differential cell count method Nom (Bld) Auto [facility] Eosinophils (Bld) [#/Vol] 0.34 10*3/uL <0.46 k/uL [facility] Eosinophils/100 WBC (Bld) 6.6 % [facility] Erythrocyte distribution width (RBC) [Ratio] 14.7 % 11.5 - 15.0 % [facility] Hematocrit (Bld) [Volume fraction] 34.2 % Low 36.0 - 46.0 % [facility] Hemoglobin (Bld) [Mass/Vol] 10.8 g/dL Low 11.5 - 15.5 g/dL [facility] Immature granulocytes (Bld) [#/Vol] 0.03 10*3/uL <0.10 k/uL [facility] Immature granulocytes/100 WBC (Bld) 0.6 % [facility] Lymphocytes (Bld) [#/Vol] 1.60 10*3/uL 1.00 - 4.00 k/uL [facility] Lymphocytes/100 WBC (Bld) 31.2 % [facility] MCH (RBC) [Entitic mass] 30.8 pg 26. 0 - 34.0 pg [facility] MCHC (RBC) [Mass/Vol] 31.6 g/dL 30.5 - 36.0 g/dL [facility] MCV (RBC) [Entitic vol] 97.4 fL 80.0 - 100.0 fL [facility] Monocytes (Bld) [#/Vol] 0.61 10*3/uL <0.87 k/uL [facility] Monocytes/100 WBC (Bld) 11.9 % C [facility] Neutrophils (Bld) [#/Vol] 2.51 10*3/uL 1.45 - 7.50 k/uL [facility] Neutrophils/100 WBC (Bld) 48.9 % [facility] Nucleated RBC (Bld) [#/Vol] <0.01 k/uL [facility] Nucleated RBC/100 WBC (Bld) [Ratio] 0.0 /100 WBC [facility] Platelet mean volume (Bld) [Entitic vol] 10.4 fL 9.0 - 12.7 fL [facility] Platelets (Bld) [#/Vol] 170 10*3/uL 150 - 400 k/uL [facility] RBC (Bld) [#/Vol] 3.51 10*6/uL Low 3.90 - 5.2 0 m/uL [facility] WBC (Bld) [#/Vol] 5.13 10*3/uL 3.70 - 11. 00 k/uL [facility] Basophils (Bld) [#/Vol] 0.04 10*3/uL Normal <0.11 [facility] Comment on above: Order Comment: Speci men Type: BLOOD SPECIMENOrdering Facility: [facility] Address: [address] [place] [address] Performed By: #### 5 7021-8 ####BERRIOS LABORATORYCLIA [id number] [place] [address] [place] Basophils/100 WBC (Bld) 0.8 % Normal C [facility] Comment on above: Order Comment: Speci men Type: BLOOD SPECIMENOrdering Facility: [facility] Address: [address] [place] [address] Performed By: #### 5 7021-8 ####BERRIOS LABORATORYCLIA [id number] [place] [address] [place] Differential cell count method Nom (Bld) Auto Normal [facility] Comment on above: Order Comment: Speci men Type: BLOOD SPECIMENOrdering Facility: [facility] Address: [address] [place] [address] Performed By: #### 5 7021-8 ####BERRIOS LABORATORYCLIA [id number] [place] [address] [place] Eosinophils (Bld) [#/Vol] 0.34 10*3/uL Normal <0.46 [facility] Comment on above: Order Comment: Speci men Type: BLOOD SPECIMENOrdering Facility: [facility] Address: [address] [place] [address] Performed By: #### 5 7021-8 ####BERRIOS LABORATORYCLIA [id number] [place] [address] [place] Eosinophils/100 WBC (Bld) 6.6 % Normal [facility] Comment on above: Order Comment: Speci men Type: BLOOD SPECIMENOrdering Facility: [facility] Address: [address] [place] [address] Performed By: #### 5 7021-8 ####BERRIOS LABORATORYCLIA [id number] [place] [address] [place] Erythrocyte distribution width (RBC) [Ratio] 14.7 % Normal 11.5-15.0 [facility] Comment on above: Order Comment: Speci men Type: BLOOD SPECIMENOrdering Facility: [facility] Address: [address] [place] [address] Performed By: #### 5 7021-8 ####BERRIOS LABORATORYCLIA [id number] [place] [address] [place] Hematocrit (Bld) [Volume fraction] 34.2 % Low 36.0-46.0 [facility] Comment on above: Order Comment: Speci men Type: BLOOD SPECIMENOrdering Facility: [facility] Address: [address] [place] [address] Performed By: #### 5 7021-8 ####BERRIOS LABORATORYCLIA [id number] [place] [address] [place] Hemoglobin (Bld) [Mass/Vol] 10.8 g/dL Low 11.5-15.5 [facility] Comment on above: Order Comment: Speci men Type: BLOOD SPECIMENOrdering Facility: [facility] Address: [address] [place] [address] Performed By: #### 5 7021-8 ####BERRIOS LABORATORYCLIA [id number] [place] [address] [place] Immature granulocytes (Bld) [#/Vol] 0.03 10*3/uL Normal <0.10 [facility] Comment on above: Order Comment: Speci men Type: BLOOD SPECIMENOrdering Facility: [facility] Address: [address] [place] [address] Performed By: #### 5 7021-8 ####BERRIOS LABORATORYCLIA [id number] [address] [place] Immature granulocytes/100 WBC (Bld) 0.6 % Normal [facility] Comment on above: Order Comment: Speci men Type: BLOOD SPECIMENOrdering Facility: [facility] Address: [address] [place] [address] Performed By: #### 5 7021-8 ####BERRIOS LABORATORYCLIA [id number] [address] [place] Lymphocytes (Bld) [#/Vol] 1.60 10*3/uL Normal 1.00-4.00 [facility] Comment on above: Order Comment: Speci men Type: BLOOD SPECIMENOrdering Facility: [facility] Address: [address] [place] [address] Performed By: #### 5 7021-8 ####BERRIOS LABORATORYCLIA [id number] [address] Lymphocytes/100 WBC (Bld) 31.2 % Normal [facility] Comment on above: Order Comment: Speci men Type: BLOOD SPECIMENOrdering Facility: [facility] Address: [address] [place] [address] Performed By: #### 5 7021-8 ####BERRIOS LABORATORYCLIA [id number] [place] [address] [place] MCH (RBC) [Entitic mass] 30.8 pg Normal 26.0-34.0 [facility] Comment on above: Order Comment: Speci men Type: BLOOD SPECIMENOrdering Facility: [facility] Address: [address] [place] [address] Performed By: #### 5 7021-8 ####BERRIOS LABORATORYCLIA [id number] [address] [place] MCHC (RBC) [Mass/Vol] 31.6 g/dL Normal 30.5-36.0 [facility] Comment on above: Order Comment: Speci men Type: BLOOD SPECIMENOrdering Facility: [facility] Address: [address] [place] [address] Performed By: #### 5 7021-8 ####BERRIOS LABORATORYCLIA [id number] [place] [address] [place] MCV (RBC) [Entitic vol] 97.4 fL Normal 80.0-100.0 C [facility] Comment on above: Order Comment: Speci men Type: BLOOD SPECIMENOrdering Facility: [facility] Address: [address] [place] [address] Performed By: #### 5 7021-8 ####BERRIOS LABORATORYCLIA [id number] [place] [address] [place] Monocytes (Bld) [#/Vol] 0.61 10*3/uL Normal <0.87 [facility] Comment on above: Order Comment: Speci men Type: BLOOD SPECIMENOrdering Facility: [facility] Address: [address] [place] [address] Performed By: #### 5 7021-8 ####BERRIOS LABORATORYCLIA [id number] [address] [place] Monocytes/100 WBC (Bld) 11.9 % Normal C [facility] Comment on above: Order Comment: Speci men Type: BLOOD SPECIMENOrdering Facility: [facility] Address: [address] [place] [address] Performed By: #### 5 7021-8 ####BERRIOS LABORATORYCLIA [id number] [place] [address] [place] Neutrophils (Bld) [#/Vol] 2.51 10*3/uL Normal 1.45-7.50 [facility] Comment on above: Order Comment: Speci men Type: BLOOD SPECIMENOrdering Facility: [facility] Address: [address] [place] [address] Performed By: #### 5 7021-8 ####BERRIOS LABORATORYCLIA [id number] [place] [address] [place] Neutrophils/100 WBC (Bld) 48.9 % Normal [facility] Comment on above: Order Comment: Speci men Type: BLOOD SPECIMENOrdering Facility: [facility] Address: [address] [place] [address] Performed By: #### 5 7021-8 ####BERRIOS LABORATORYCLIA [id number] [place] [address] [place] Nucleated RBC (Bld) [#/Vol] 10*3/uL Normal <0.01 [facility] Comment on above: Order Comment: Speci men Type: BLOOD SPECIMENOrdering Facility: [facility] Address: [address] [place] [address] Performed By: #### 5 7021-8 ####BERRIOS LABORATORYCLIA [id number] [place] [address] [place] Nucleated RBC/100 WBC (Bld) [Ratio] 0.0 /100 WBC Normal [facility] Comment on above: Order Comment: Speci men Type: BLOOD SPECIMENOrdering Facility: [facility] Address: [address] [place] [address] Performed By: #### 5 7021-8 ####BERRIOS LABORATORYCLIA [id number] [place] [address] [place] Platelet mean volume (Bld) [Entitic vol] 10.4 fL Normal 9.0-12.7 [facility] Comment on above: Order Comment: Speci men Type: BLOOD SPECIMENOrdering Facility: [facility] Address: [address] [place] [address] Performed By: #### 5 7021-8 ####BERRIOS LABORATORYCLIA [id number] [place] [address] [place] Platelets (Bld) [#/Vol] 170 10*3/uL Normal 150-400 [facility] Comment on above: Order Comment: Speci men Type: BLOOD SPECIMENOrdering Facility: [facility] Address: [address] [place] [address] Performed By: #### 5 7021-8 ####BERRIOS LABORATORYCLIA [id number] [address] RBC (Bld) [#/Vol] 3.51 10*6/uL Low 3.90-5.20 [facility] Comment on above: Order Comment: Speci men Type: BLOOD SPECIMENOrdering Facility: [facility] Address: [address] [place] [address] Performed By: #### 5 7021-8 ####BERRIOS LABORATORYCLIA [id number] [address] WBC (Bld) [#/Vol] 5.13 10*3/uL Normal 3.70-11.00 [facility] Comment on above: Order Comment: Speci men Type: BLOOD SPECIMENOrdering Facility: [facility] Address: [address] [place] [address] Performed By: #### 5 7021-8 ####BERRIOS LABORATORYCLIA [id number] [place] [id number] [place] Basic metabolic 2000 panelon 12-05-2022 Anion gap [Moles/Vol] 12 mmol/L 9 - 18 mmol/L [facility] Calcium [Mass/Vol] 9.5 mg/dL 8.5 - 10. 2 mg/dL [facility] Chloride [Moles/Vol] 109 mmol/L High 97 - 10 5 mmol/L [facility] CO2 [Moles/Vol] 23 mmol/L 22 - 30 mmol/L [facility] Creatinine [Mass/Vol] 1.11 mg/dL High 0.58 - 0.96 mg/dL [facility] Estimated Glomerular Filtration Rate 51 mL/min/1.73m Low >=60 mL/min/1.73m [facility] Glucose [Mass/Vol] 96 mg/dL 74 - 99 mg/dL [facility] Potassium [Moles/Vol] 4.4 mmol/L 3.7 - 5.1 mmol/L [facility] Sodium [Moles/Vol] 144 mmol/L 136 - 144 mmol/L [facility] Urea nitrogen [Mass/Vol] 39 mg/dL High 7 - 21 mg/d L [facility] Anion gap [Moles/Vol] 12 mmol/L Normal 9-18 [facility] Comment on above: Order Comment: Speci men Type: BLOOD SPECIMENOrdering Facility: [facility] Address: [address] [place] [address] Performed By: #### 2 4321-2 ####BERRIOS LABORATORYCLIA [id number] [place] [address] [place] Calcium [Mass/Vol] 9.5 mg/dL Normal 8.5-10.2 [facility] Comment on above: Order Comment: Speci men Type: BLOOD SPECIMENOrdering Facility: [facility] Address: [address] [place] [address] Performed By: #### 2 4321-2 ####BERRIOS LABORATORYCLIA [id number] [place] [address] [place] Chloride [Moles/Vol] 109 mmol/L High 97-105 [facility] Comment on above: Order Comment: Speci men Type: BLOOD SPECIMENOrdering Facility: [facility] Address: [address] [place] [address] Performed By: #### 2 4321-2 ####BERRIOS LABORATORYCLIA [id number] [place] [address] [place] CO2 [Moles/Vol] 23 mmol/L Normal 22-30 [facility] Comment on above: Order Comment: Speci men Type: BLOOD SPECIMENOrdering Facility: [facility] Address: [address] [place] [address] Performed By: #### 2 4321-2 ####BERRIOS LABORATORYCLIA [id number] [place] [id number] [place] Creatinine [Mass/Vol] 1.11 mg/dL High 0.58-0.96 [facility] Comment on above: Order Comment: Speci men Type: BLOOD SPECIMENOrdering Facility: [facility] Address: [address] [place] [address] Performed By: #### 2 4321-2 ####BERRIOS LABORATORYCLIA [id number] [place] [address] [place] ESTIMATED GLOMERULAR FILTRATION RATE 51 mL/min/1.73m??? Low >=60 [facility] Comment on above: Order Comment: Jordyn finch Type: BLOOD SPECIMENOrdering Facility: [facility] Address: [address] [place] [address] Result Comment: Caroline mated Glomerular Filtration Rate (eGFR) is calculated using the 2020 CKD-EPI creatinine equation. This equation utilizes serum creatinine, sex, and age as parameters. The creatinine assay has traceable calibration to isotope dilution-mass spectrometry. Refer to KDIGO guidelines for clinical interpretation. In patients with unstable renal function, e.g. those with acute kidney injury, the eGFR may not accurately reflect actual GFR. Performed By: #### 2 4321-2 ####BERRIOS LABORATORYCLIA [id number] [place] [address] [place] Glucose [Mass/Vol] 96 mg/dL Normal 74-99 [facility] Comment on above: Order Comment: Specquita finch Type: BLOOD SPECIMENOrdering Facility: [facility] Address: [address] [place] [address] Result Comment: The [place] [employer] (ADA) provides guidance for cutoff values for fasting glucose and random glucose. The ADA defines fasting as no caloric intake for at least 8 hours. Fasting plasma glucose results between 100 to 125 mg/dL indicate increased risk for diabetes (prediabetes). Fasting plasma glucose results greater than or equal to 126 mg/dL meet the criteria for diagnosis of diabetes. In the absence of unequivocal hyperglycemia, results should be confirmed by repeat testing. In a patient with classic symptoms of hyperglycemia or hyperglycemic crisis, random plasma glucose results greater than or equal to 200 mg/dL meet the criteria for diagnosis of diabetes. Reference: Standards of Medical Care in Diabetes 2016, [place] [employer]. Diabetes Care. 2016.39(Suppl 1). Performed By: #### 2 4321-2 ####BERRIOS LABORATORYCLIA [id number] [place] [address] [place] Potassium [Moles/Vol] 4.4 mmol/L Normal 3.7-5.1 [facility] Comment on above: Order Comment: Speci men Type: BLOOD SPECIMENOrdering Facility: [facility] Address: [address] [place] [address] Performed By: #### 2 4321-2 ####BERRIOS LABORATORYCLIA [id number] [address] [place] [facility] Sodium [Moles/Vol] 144 mmol/L Normal 136-144 [facility] Comment on above: Order Comment: Speci men Type: BLOOD SPECIMENOrdering Facility: [facility] Address: [address] [place] [address] Performed By: #### 2 4321-2 ####BERRIOS LABORATORYCLIA [id number] [address] [place] Urea nitrogen [Mass/Vol] 39 mg/dL High 7-21 [facility] Comment on above: Order Comment: Speci men Type: BLOOD SPECIMENOrdering Facility: [facility] Address: [address] [place] [address] Performed By: #### 2 4321-2 ####BERRIOS LABORATORYCLIA [id number] [address] [place] CBC W Auto Differential pane l (Bld)on 12-05-2022 Basophils (Bld) [#/Vol] 0.04 10*3/uL <0.11 k/uL [facility] Basophils/100 WBC (Bld) 0.8 % [facility] Differential cell count method Nom (Bld) Auto [facility] Eosinophils (Bld) [#/Vol] 0.29 10*3/uL <0.46 k/uL [facility] Eosinophils/100 WBC (Bld) 5.9 % [facility] Erythrocyte distribution width (RBC) [Ratio] 14.5 % 11.5 - 15.0 % [facility] Hematocrit (Bld) [Volume fraction] 33.5 % Low 36.0 - 46.0 % [facility] Hemoglobin (Bld) [Mass/Vol] 10.7 g/dL Low 11.5 - 15.5 g/dL [facility] Immature granulocytes (Bld) [#/Vol] <0.10 k/uL [facility] Immature granulocytes/100 WBC (Bld) 0.4 % [facility] Lymphocytes (Bld) [#/Vol] 1.43 10*3/uL 1.00 - 4.00 k/uL [facility] Lymphocytes/100 WBC (Bld) 29.0 % [facility] MCH (RBC) [Entitic mass] 30.8 pg 26. 0 - 34.0 pg [facility] MCHC (RBC) [Mass/Vol] 31.9 g/dL 30.5 - 36.0 g/dL [facility] MCV (RBC) [Entitic vol] 96.5 fL 80.0 - 100.0 fL [facility] Monocytes (Bld) [#/Vol] 0.61 10*3/uL <0.87 k/uL [facility] Monocytes/100 WBC (Bld) 12.4 % [facility] Neutrophils (Bld) [#/Vol] 2.54 10*3/uL 1.45 - 7.50 k/uL [facility] Neutrophils/100 WBC (Bld) 51.5 % [facility] Nucleated RBC (Bld) [#/Vol] <0.01 k/uL [facility] Nucleated RBC/100 WBC (Bld) [Ratio] 0.0 /100 WBC [facility] Platelet mean volume (Bld) [Entitic vol] 10.7 fL 9.0 - 12.7 fL [facility] Platelets (Bld) [#/Vol] 169 10*3/uL 150 - 400 k/uL [facility] RBC (Bld) [#/Vol] 3.47 10*6/uL Low 3.90 - 5.2 0 m/uL [facility] WBC (Bld) [#/Vol] 4.93 10*3/uL 3.70 - 11. 00 k/uL [facility] Basophils (Bld) [#/Vol] 0.04 10*3/uL Normal <0.11 [facility] Comment on above: Order Comment: Speci men Type: BLOOD SPECIMENOrdering Facility: [facility] Address: [address] [place] [address] Performed By: #### 5 7021-8 ####BERRIOS LABORATORYCLIA [id number] [address] [facility] Basophils/100 WBC (Bld) 0.8 % Normal [facility] Comment on above: Order Comment: Speci men Type: BLOOD SPECIMENOrdering Facility: [facility] Address: [address] [place] [address] Performed By: #### 5 7021-8 ####BERRIOS LABORATORYCLIA [id number] [place] [address] [place] Differential cell count method Nom (Bld) Auto Normal [facility] Comment on above: Order Comment: Speci men Type: BLOOD SPECIMENOrdering Facility: [facility] Address: [address] [place] [address] Performed By: #### 5 7021-8 ####BERRIOS LABORATORYCLIA [id number] [place] [address] [place] Eosinophils (Bld) [#/Vol] 0.29 10*3/uL Normal <0.46 [facility] Comment on above: Order Comment: Speci men Type: BLOOD SPECIMENOrdering Facility: [facility] Address: [address] [place] [address] Performed By: #### 5 7021-8 ####BERRIOS LABORATORYCLIA [id number] [place] [address] [place] Eosinophils/100 WBC (Bld) 5.9 % Normal [facility] Comment on above: Order Comment: Speci men Type: BLOOD SPECIMENOrdering Facility: [facility] Address: [address] [place] [address] Performed By: #### 5 7021-8 ####BERRIOS LABORATORYCLIA [id number] [address] [place] Erythrocyte distribution width (RBC) [Ratio] 14.5 % Normal 11.5-15.0 [facility] Comment on above: Order Comment: Speci men Type: BLOOD SPECIMENOrdering Facility: [facility] Address: [address] [place] [address] Performed By: #### 5 7021-8 ####BERRIOS LABORATORYCLIA [id number] [place] [address] [place] Hematocrit (Bld) [Volume fraction] 33.5 % Low 36.0-46.0 [facility] Comment on above: Order Comment: Speci men Type: BLOOD SPECIMENOrdering Facility: [facility] Address: [address] [place] [address] Performed By: #### 5 7021-8 ####BERRIOS LABORATORYCLIA [id number] [place] [address] [place] Hemoglobin (Bld) [Mass/Vol] 10.7 g/dL Low 11.5-15.5 [facility] Comment on above: Order Comment: Speci men Type: BLOOD SPECIMENOrdering Facility: [facility] Address: [address] [place] [address] Performed By: #### 5 7021-8 ####BERRIOS LABORATORYCLIA [id number] [place] [address] [place] Immature granulocytes (Bld) [#/Vol] 10*3/uL Normal <0.10 [facility] Comment on above: Order Comment: Speci men Type: BLOOD SPECIMENOrdering Facility: [facility] Address: [address] [place] [address] Performed By: #### 5 7021-8 ####BERRIOS LABORATORYCLIA [id number] [place] [address] [place] Immature granulocytes/100 WBC (Bld) 0.4 % Normal [facility] Comment on above: Order Comment: Speci men Type: BLOOD SPECIMENOrdering Facility: [facility] Address: [address] [place] [address] Performed By: #### 5 7021-8 ####BERRIOS LABORATORYCLIA [id number] [place] [id number] [place] Lymphocytes (Bld) [#/Vol] 1.43 10*3/uL Normal 1.00-4.00 [facility] Comment on above: Order Comment: Speci men Type: BLOOD SPECIMENOrdering Facility: [facility] Address: [address] [place] [address] Performed By: #### 5 7021-8 ####BERRIOS LABORATORYCLIA [id number] [address] [place] Lymphocytes/100 WBC (Bld) 29.0 % Normal [facility] Comment on above: Order Comment: Speci men Type: BLOOD SPECIMENOrdering Facility: [facility] Address: [address] [place] [address] Performed By: #### 5 7021-8 ####BERRIOS LABORATORYCLIA [id number] [place] [address] [place] MCH (RBC) [Entitic mass] 30.8 pg Normal 26.0-34.0 [facility] Comment on above: Order Comment: Speci men Type: BLOOD SPECIMENOrdering Facility: [facility] Address: [address] [place] [address] Performed By: #### 5 7021-8 ####BERRIOS LABORATORYCLIA [id number] [address] [place] MCHC (RBC) [Mass/Vol] 31.9 g/dL Normal 30.5-36.0 [facility] Comment on above: Order Comment: Speci men Type: BLOOD SPECIMENOrdering Facility: [facility] Address: [address] [place] [address] Performed By: #### 5 7021-8 ####BERRIOS LABORATORYCLIA [id number] [address] [place] MCV (RBC) [Entitic vol] 96.5 fL Normal 80.0-100.0 [facility] Comment on above: Order Comment: Speci men Type: BLOOD SPECIMENOrdering Facility: [facility] Address: [address] [place] [address] Performed By: #### 5 7021-8 ####BERRIOS LABORATORYCLIA [id number] [address] [place] Monocytes (Bld) [#/Vol] 0.61 10*3/uL Normal <0.87 [facility] Comment on above: Order Comment: Speci men Type: BLOOD SPECIMENOrdering Facility: [facility] Address: [address] [place] [address] Performed By: #### 5 7021-8 ####BERRIOS LABORATORYCLIA [id number] [place] [address] [place] Monocytes/100 WBC (Bld) 12.4 % Normal C [facility] Comment on above: Order Comment: Speci men Type: BLOOD SPECIMENOrdering Facility: [facility] Address: [address] [place] [address] Performed By: #### 5 7021-8 ####BERRIOS LABORATORYCLIA [id number] [place] [address] [place] Neutrophils (Bld) [#/Vol] 2.54 10*3/uL Normal 1.45-7.50 [facility] Comment on above: Order Comment: Speci men Type: BLOOD SPECIMENOrdering Facility: [facility] Address: [address] [place] [address] Performed By: #### 5 7021-8 ####BERRIOS LABORATORYCLIA [id number] [address] [place] Neutrophils/100 WBC (Bld) 51.5 % Normal [facility] Comment on above: Order Comment: Speci men Type: BLOOD SPECIMENOrdering Facility: [facility] Address: [address] [place] [address] Performed By: #### 5 7021-8 ####BERRIOS LABORATORYCLIA [id number] [place] [address] [place] Nucleated RBC (Bld) [#/Vol] 10*3/uL Normal <0.01 [facility] Comment on above: Order Comment: Speci men Type: BLOOD SPECIMENOrdering Facility: [facility] Address: [address] [place] [address] Performed By: #### 5 7021-8 ####BERRIOS LABORATORYCLIA [id number] [address] [place] Nucleated RBC/100 WBC (Bld) [Ratio] 0.0 /100 WBC Normal [facility] Comment on above: Order Comment: Speci men Type: BLOOD SPECIMENOrdering Facility: [facility] Address: [address] [place] [address] Performed By: #### 5 7021-8 ####BERRIOS LABORATORYCLIA [id number] [place] [address] [place] Platelet mean volume (Bld) [Entitic vol] 10.7 fL Normal 9.0-12.7 [facility] Comment on above: Order Comment: Speci men Type: BLOOD SPECIMENOrdering Facility: [facility] Address: [address] [place] [address] Performed By: #### 5 7021-8 ####BERRIOS LABORATORYCLIA [id number] [place] [id number] [place] Platelets (Bld) [#/Vol] 169 10*3/uL Normal 150-400 [facility] Comment on above: Order Comment: Speci men Type: BLOOD SPECIMENOrdering Facility: [facility] Address: [address] [place] [address] Performed By: #### 5 7021-8 ####BERRIOS LABORATORYCLIA [id number] [place] [address] [place] RBC (Bld) [#/Vol] 3.47 10*6/uL Low 3.90-5.20 [facility] Comment on above: Order Comment: Speci men Type: BLOOD SPECIMENOrdering Facility: [facility] Address: [address] [place] [address] Performed By: #### 5 7021-8 ####BERRIOS LABORATORYCLIA [id number] [place] [id number] [place] WBC (Bld) [#/Vol] 4.93 10*3/uL Normal 3.70-11.00 [facility] Comment on above: Order Comment: Speci men Type: BLOOD SPECIMENOrdering Facility: [facility] Address: [address] [place] [address] Performed By: #### 5 7021-8 ####BERRIOS LABORATORYCLIA [id number] [place] [id number] [place] Basic metabolic 2000 panelon 12-02-2022 Anion gap [Moles/Vol] 11 mmol/L Normal 9-18 [facility] Comment on above: Order Comment: Speci men Type: BLOOD SPECIMENOrdering Facility: [facility] Address: [address] [place] [address] Performed By: #### 2 4321-2 ####DEREJECREST LABORATORYCLIA [id number] [place] [address] [place] Calcium [Mass/Vol] 9.4 mg/dL Normal 8.5-10.2 [facility] Comment on above: Order Comment: Speci men Type: BLOOD SPECIMENOrdering Facility: [facility] Address: [address] [place] [address] Performed By: #### 2 4321-2 ####DEREJECREST LABORATORYCLIA [id number] [place] [address] [place] Chloride [Moles/Vol] 107 mmol/L High 97-105 [facility] Comment on above: Order Comment: Speci men Type: BLOOD SPECIMENOrdering Facility: [facility] Address: [address] [place] [address] Performed By: #### 2 4321-2 ####DEREJECREST LABORATORYCLIA [id number] [place] [address] [place] CO2 [Moles/Vol] 23 mmol/L Normal 22-30 [facility] Comment on above: Order Comment: Speci men Type: BLOOD SPECIMENOrdering Facility: [facility] Address: [address] [place] [address] Performed By: #### 2 4321-2 ####HILLCREST LABORATORYCLIA [id number] [place] [address] [place] Creatinine [Mass/Vol] 1.04 mg/dL High 0.58-0.96 [facility] Comment on above: Order Comment: Speci men Type: BLOOD SPECIMENOrdering Facility: [facility] Address: [address] [place] [address] Performed By: #### 2 4321-2 ####DEREJECREST LABORATORYCLIA [id number] [place] [address] [place] Estimated Glomerular Filtration Rate 55 mL/min/1.73m Low >=60 mL/min/1.73m [facility] Glucose [Mass/Vol] 104 mg/dL High 74-99 [facility] Comment on above: Order Comment: Speci men Type: BLOOD SPECIMENOrdering Facility: [facility] Address: [address] [place] [address] Result Comment: The [place] [employer] (ADA) provides guidance for cutoff values for fasting glucose and random glucose. The ADA defines fasting as no caloric intake for at least 8 hours. Fasting plasma glucose results between 100 to 125 mg/dL indicate increased risk for diabetes (prediabetes). Fasting plasma glucose results greater than or equal to 126 mg/dL meet the criteria for diagnosis of diabetes. In the absence of unequivocal hyperglycemia, results should be confirmed by repeat testing. In a patient with classic symptoms of hyperglycemia or hyperglycemic crisis, random plasma glucose results greater than or equal to 200 mg/dL meet the criteria for diagnosis of diabetes. Reference: Standards of Medical Care in Diabetes 2016, [place] [employer]. Diabetes Care. 2016.39(Suppl 1). Performed By: #### 2 4321-2 ####HILLCREST LABORATORYCLIA [id number] [place] [address] [place] Potassium [Moles/Vol] 4.2 mmol/L Normal 3.7-5.1 [facility] Comment on above: Order Comment: Speci men Type: BLOOD SPECIMENOrdering Facility: [facility] Address: [address] [place] [address] Performed By: #### 2 4321-2 ####HILLCREST LABORATORYCLIA [id number] [place] [address] [place] Sodium [Moles/Vol] 141 mmol/L Normal 136-144 [facility] Comment on above: Order Comment: Speci men Type: BLOOD SPECIMENOrdering Facility: [facility] Address: [address] [place] [address] Performed By: #### 2 4321-2 ####HILLCREST LABORATORYCLIA [id number] [place] [address] [place] Urea nitrogen [Mass/Vol] 41 mg/dL High 7-21 [facility] Comment on above: Order Comment: Speci men Type: BLOOD SPECIMENOrdering Facility: [facility] Address: [address] [place] [address] Performed By: #### 2 4321-2 ####HILLCREST LABORATORYCLIA [id number] [place] [address] [place] ESTIMATED GLOMERULAR FILTRATION RATE 55 mL/min/1.73m??? Low >=60 [facility] Comment on above: Order Comment: Speci men Type: BLOOD SPECIMENOrdering Facility: [facility] Address: [address] [place] [address] Result Comment: Caroline mated Glomerular Filtration Rate (eGFR) is calculated using the 2020 CKD-EPI creatinine equation. This equation utilizes serum creatinine, sex, and age as parameters. The creatinine assay has traceable calibration to isotope dilution-mass spectrometry. Refer to KDIGO guidelines for clinical interpretation. In patients with unstable renal function, e.g. those with acute kidney injury, the eGFR may not accurately reflect actual GFR. Performed By: #### 2 4321-2 ####HILLCREST LABORATORYCLIA [id number] [place] [address] [place] CBC W Auto Differential pane l (Bld)on 12-02-2022 Basophils (Bld) [#/Vol] 0.03 10*3/uL Normal <0.11 [facility] Comment on above: Order Comment: Speci men Type: BLOOD SPECIMENOrdering Facility: [facility] Address: [address] [place] [address] Performed By: #### 5 7021-8 ####DEREJECREST LABORATORYCLIA [id number] [address] [place] Basophils/100 WBC (Bld) 0.6 % Normal [facility] Comment on above: Order Comment: Speci men Type: BLOOD SPECIMENOrdering Facility: [facility] Address: [address] [place] [address] Performed By: #### 5 7021-8 ####DEREJECREST LABORATORYCLIA [id number] [place] [address] [place] Differential cell count method Nom (Bld) Auto Normal [facility] Comment on above: Order Comment: Speci men Type: BLOOD SPECIMENOrdering Facility: [facility] Address: [address] [place] [address] Performed By: #### 5 7021-8 ####DEREJECREST LABORATORYCLIA [id number] [place] [address] [place] Eosinophils (Bld) [#/Vol] 0.27 10*3/uL Normal <0.46 [facility] Comment on above: Order Comment: Speci men Type: BLOOD SPECIMENOrdering Facility: [facility] Address: [address] [place] [address] Performed By: #### 5 7021-8 ####DEREJECREST LABORATORYCLIA [id number] [place] [address] [place] Eosinophils/100 WBC (Bld) 5.6 % Normal [facility] Comment on above: Order Comment: Speci men Type: BLOOD SPECIMENOrdering Facility: [facility] Address: [address] [place] [address] Performed By: #### 5 7021-8 ####DEREJECREST LABORATORYCLIA [id number] [address] [place] Erythrocyte distribution width (RBC) [Ratio] 14.3 % Normal 11.5-15.0 [facility] Comment on above: Order Comment: Speci men Type: BLOOD SPECIMENOrdering Facility: [facility] Address: [address] [place] [address] Performed By: #### 5 7021-8 ####HILLCREST LABORATORYCLIA [id number] [place] [address] [place] Hematocrit (Bld) [Volume fraction] 35.5 % Low 36.0-46.0 [facility] Comment on above: Order Comment: Speci men Type: BLOOD SPECIMENOrdering Facility: [facility] Address: [address] [place] [address] Performed By: #### 5 7021-8 ####HILLCREST LABORATORYCLIA [id number] [place] [address] [place] Hemoglobin (Bld) [Mass/Vol] 12.3 g/dL Normal 11.5-15.5 [facility] Comment on above: Order Comment: Speci men Type: BLOOD SPECIMENOrdering Facility: [facility] Address: [address] [place] [address] Performed By: #### 5 7021-8 ####DEREJECREST LABORATORYCLIA [id number] [place] [address] [place] Immature granulocytes (Bld) [#/Vol] <0.10 k/uL [facility] Immature granulocytes/100 WBC (Bld) 0.4 % Normal [facility] Comment on above: Order Comment: Speci men Type: BLOOD SPECIMENOrdering Facility: [facility] Address: [address] [place] [address] Performed By: #### 5 7021-8 ####DEREJECREST LABORATORYCLIA [id number] [place] [address] [place] Lymphocytes (Bld) [#/Vol] 1.12 10*3/uL Normal 1.00-4.00 [facility] Comment on above: Order Comment: Speci men Type: BLOOD SPECIMENOrdering Facility: [facility] Address: [address] [place] [address] Performed By: #### 5 7021-8 ####DEREJECREST LABORATORYCLIA [id number] [place] [address] [place] Lymphocytes/100 WBC (Bld) 23.3 % Normal [facility] Comment on above: Order Comment: Speci men Type: BLOOD SPECIMENOrdering Facility: [facility] Address: [address] [place] [address] Performed By: #### 5 7021-8 ####H[facility]CREST LABORATORYCLIA [id number] [place] [address] [place] MCH (RBC) [Entitic mass] 33.2 pg Normal 26.0-34.0 [facility] Comment on above: Order Comment: Speci men Type: BLOOD SPECIMENOrdering Facility: [facility] Address: [address] [place] [address] Performed By: #### 5 7021-8 ####DEREJECREST LABORATORYCLIA [id number] [place] [address] [place] MCHC (RBC) [Mass/Vol] 34.6 g/dL Normal 30.5-36.0 [facility] Comment on above: Order Comment: Speci men Type: BLOOD SPECIMENOrdering Facility: [facility] Address: [address] [place] [address] Performed By: #### 5 7021-8 ####DEREJECREST LABORATORYCLIA [id number] [place] [address] [place] MCV (RBC) [Entitic vol] 95.9 fL Normal 80.0-100.0 [facility] Comment on above: Order Comment: Speci men Type: BLOOD SPECIMENOrdering Facility: [facility] Address: [address] [place] [address] Performed By: #### 5 7021-8 ####DEREJECREST LABORATORYCLIA [id number] [place] [address] [place] Monocytes (Bld) [#/Vol] 0.56 10*3/uL Normal <0.87 [facility] Comment on above: Order Comment: Speci men Type: BLOOD SPECIMENOrdering Facility: [facility] Address: [address] [place] [address] Performed By: #### 5 7021-8 ####HILLCREST LABORATORYCLIA [id number] [address] [place] Monocytes/100 WBC (Bld) 11.6 % Normal [facility] Comment on above: Order Comment: Speci men Type: BLOOD SPECIMENOrdering Facility: [facility] Address: [address] [place] [address] Performed By: #### 5 7021-8 ####DEREJECREST LABORATORYCLIA [id number] [place] [address] [place] Neutrophils (Bld) [#/Vol] 2.81 10*3/uL Normal 1.45-7.50 [facility] Comment on above: Order Comment: Speci men Type: BLOOD SPECIMENOrdering Facility: [facility] Address: [address] [place] [address] Performed By: #### 5 7021-8 ####DEREJECREST LABORATORYCLIA [id number] [place] [address] [place] Neutrophils/100 WBC (Bld) 58.5 % Normal [facility] Comment on above: Order Comment: Speci men Type: BLOOD SPECIMENOrdering Facility: [facility] Address: [address] [place] [address] Performed By: #### 5 7021-8 ####DEREJECREST LABORATORYCLIA [id number] [place] [address] [place] Nucleated RBC (Bld) [#/Vol] <0.01 k/uL [facility] Nucleated RBC/100 WBC (Bld) [Ratio] 0.0 /100 WBC Normal [facility] Comment on above: Order Comment: Speci men Type: BLOOD SPECIMENOrdering Facility: [facility] Address: [address] [place] [address] Performed By: #### 5 7021-8 ####DEREJECREST LABORATORYCLIA [id number] [place] [address] [place] Platelet mean volume (Bld) [Entitic vol] 10.8 fL Normal 9.0-12.7 [facility] Comment on above: Order Comment: Speci men Type: BLOOD SPECIMENOrdering Facility: [facility] Address: [address] [place] [address] Performed By: #### 5 7021-8 ####HILLCREST LABORATORYCLIA [id number] [place] [address] [place] Platelets (Bld) [#/Vol] 208 10*3/uL Normal 150-400 [facility] Comment on above: Order Comment: Speci men Type: BLOOD SPECIMENOrdering Facility: [facility] Address: [address] [place] [address] Performed By: #### 5 7021-8 ####DEREJECREST LABORATORYCLIA [id number] [place] [address] [place] RBC (Bld) [#/Vol] 3.70 10*6/uL Low 3.90-5.20 [facility] Comment on above: Order Comment: Speci men Type: BLOOD SPECIMENOrdering Facility: [facility] Address: [address] [place] [address] Performed By: #### 5 7021-8 ####DEREJECREST LABORATORYCLIA [id number] [place] [address] [place] WBC (Bld) [#/Vol] 4.81 10*3/uL Normal 3.70-11.00 [facility] Comment on above: Order Comment: Speci men Type: BLOOD SPECIMENOrdering Facility: [facility] Address: [address] [place] [address] Performed By: #### 5 7021-8 ####DEREJECREST LABORATORYCLIA [id number] [place] [address] [place] Immature granulocytes (Bld) [#/Vol] 10*3/uL Normal <0.10 [facility] Comment on above: Order Comment: Speci men Type: BLOOD SPECIMENOrdering Facility: [facility] Address: [address] [place] [address] Performed By: #### 5 7021-8 ####HILLCRE[facility] LABORATORYCLIA [id number] [place] [address] [place] Nucleated RBC (Bld) [#/Vol] 10*3/uL Normal <0.01 [facility] Comment on above: Order Comment: Speci men Type: BLOOD SPECIMENOrdering Facility: [facility] Address: [address] [place] [address] Performed By: #### 5 7021-8 ####DEREJECREST LABORATORYCLIA [id number] [place] [address] [place] Basic metabolic 2000 panelon 11-28-2022 Anion gap [Moles/Vol] 9 mmol/L 9 - 18 mmol/L [facility] Calcium [Mass/Vol] 10.0 mg/dL 8.5 - 10. 2 mg/dL [facility] Chloride [Moles/Vol] 104 mmol/L 97 - 10 5 mmol/L [facility] CO2 [Moles/Vol] 25 mmol/L 22 - 30 mmol/L [facility] Creatinine [Mass/Vol] 1.29 mg/dL High 0.58 - 0.96 mg/dL [facility] Estimated Glomerular Filtration Rate 42 mL/min/1.73m Low >=60 mL/min/1.73m [facility] Glucose [Mass/Vol] 73 mg/dL Low 74 - 99 mg/dL [facility] Potassium [Moles/Vol] 4.8 mmol/L 3.7 - 5.1 mmol/L [facility] Sodium [Moles/Vol] 138 mmol/L 136 - 144 mmol/L [facility] Urea nitrogen [Mass/Vol] 45 mg/dL High 7 - 21 mg/d L [facility] Anion gap [Moles/Vol] 9 mmol/L Normal 9-18 [facility] Comment on above: Order Comment: Speci men Type: BLOOD SPECIMENOrdering Facility: [facility] Address: [address] [place] [address] Performed By: #### 2 4321-2 ####BERRIOS LABORATORYCLIA [id number] [address] [place] [facility] Calcium [Mass/Vol] 10.0 mg/dL Normal 8.5-10.2 [facility] Comment on above: Order Comment: Speci men Type: BLOOD SPECIMENOrdering Facility: [facility] Address: [address] [place] [address] Performed By: #### 2 4321-2 ####BERRIOS LABORATORYCLIA [id number] [place] [address] [place] Chloride [Moles/Vol] 104 mmol/L Normal 97-105 [facility] Comment on above: Order Comment: Speci men Type: BLOOD SPECIMENOrdering Facility: [facility] Address: [address] [place] [address] Performed By: #### 2 4321-2 ####BERRIOS LABORATORYCLIA [id number] [place] [id number] [place] CO2 [Moles/Vol] 25 mmol/L Normal 22-30 [facility] Comment on above: Order Comment: Speci men Type: BLOOD SPECIMENOrdering Facility: [facility] Address: [address] [place] [address] Performed By: #### 2 4321-2 ####BERRIOS LABORATORYCLIA [id number] [place] [address] [place] Creatinine [Mass/Vol] 1.29 mg/dL High 0.58-0.96 [facility] Comment on above: Order Comment: Speci men Type: BLOOD SPECIMENOrdering Facility: [facility] Address: [address] [place] [address] Performed By: #### 2 4321-2 ####BERRIOS LABORATORYCLIA [id number] [place] [address] [place] ESTIMATED GLOMERULAR FILTRATION RATE 42 mL/min/1.73m??? Low >=60 [facility] Comment on above: Order Comment: Speci men Type: BLOOD SPECIMENOrdering Facility: [facility] Address: [address] [place] [address] Result Comment: Caroline mated Glomerular Filtration Rate (eGFR) is calculated using the 2020 CKD-EPI creatinine equation. This equation utilizes serum creatinine, sex, and age as parameters. The creatinine assay has traceable calibration to isotope dilution-mass spectrometry. Refer to KDIGO guidelines for clinical interpretation. In patients with unstable renal function, e.g. those with acute kidney injury, the eGFR may not accurately reflect actual GFR. Performed By: #### 2 4321-2 ####BERRIOS LABORATORYCLIA [id number] [place] [address] [place] Glucose [Mass/Vol] 73 mg/dL Low 74-99 [facility] Comment on above: Order Comment: Speci men Type: BLOOD SPECIMENOrdering Facility: [facility] Address: [address] [place] [address] Result Comment: The [place] [employer] (ADA) provides guidance for cutoff values for fasting glucose and random glucose. The ADA defines fasting as no caloric intake for at least 8 hours. Fasting plasma glucose results between 100 to 125 mg/dL indicate increased risk for diabetes (prediabetes). Fasting plasma glucose results greater than or equal to 126 mg/dL meet the criteria for diagnosis of diabetes. In the absence of unequivocal hyperglycemia, results should be confirmed by repeat testing. In a patient with classic symptoms of hyperglycemia or hyperglycemic crisis, random plasma glucose results greater than or equal to 200 mg/dL meet the criteria for diagnosis of diabetes. Reference: Standards of Medical Care in Diabetes 2016, [place] [employer]. Diabetes Care. 2016.39(Suppl 1). Performed By: #### 2 4321-2 ####BERRIOS LABORATORYCLIA [id number] [place] [address] [place] Potassium [Moles/Vol] 4.8 mmol/L Normal 3.7-5.1 [facility] Comment on above: Order Comment: Speci men Type: BLOOD SPECIMENOrdering Facility: [facility] Address: [address] [place] [address] Performed By: #### 2 1-2 ####BERRIOS LABORATORYCLIA [id number] [place] [address] [place] Sodium [Moles/Vol] 138 mmol/L Normal 136-144 [facility] Comment on above: Order Comment: Speci men Type: BLOOD SPECIMENOrdering Facility: [facility] Address: [address] [place] [address] Performed By: #### 2 1-2 ####BERRIOS LABORATORYCLIA [id number] [place] [address] [place] Urea nitrogen [Mass/Vol] 45 mg/dL High 7-21 [facility] Comment on above: Order Comment: Speci men Type: BLOOD SPECIMENOrdering Facility: [facility] Address: [address] [place] [address] Performed By: #### 2 1-2 ####BERRIOS LABORATORYCLIA [id number] [place] [address] [place] CBC W Auto Differential pane l (Bld)on 11-28-2022 Basophils (Bld) [#/Vol] 0.05 10*3/uL <0.11 k/uL [facility] Basophils/100 WBC (Bld) 0.9 % C [facility] Differential cell count method Nom (Bld) Auto [facility] Eosinophils (Bld) [#/Vol] 0.17 10*3/uL <0.46 k/uL [facility] Eosinophils/100 WBC (Bld) 3.1 % [facility] Erythrocyte distribution width (RBC) [Ratio] 13.9 % 11.5 - 15.0 % [facility] Hematocrit (Bld) [Volume fraction] 38.0 % 36.0 - 46.0 % [facility] Hemoglobin (Bld) [Mass/Vol] 12.1 g/dL 11.5 - 15.5 g/dL [facility] Immature granulocytes (Bld) [#/Vol] 0.03 10*3/uL <0.10 k/uL [facility] Immature granulocytes/100 WBC (Bld) 0.5 % [facility] Lymphocytes (Bld) [#/Vol] 1.90 10*3/uL 1.00 - 4.00 k/uL [facility] Lymphocytes/100 WBC (Bld) 34.4 % [facility] MCH (RBC) [Entitic mass] 30.6 pg 26. 0 - 34.0 pg [facility] MCHC (RBC) [Mass/Vol] 31.8 g/dL 30.5 - 36.0 g/dL [facility] MCV (RBC) [Entitic vol] 96.2 fL 80.0 - 100.0 fL [facility] Monocytes (Bld) [#/Vol] 0.54 10*3/uL <0.87 k/uL [facility] Monocytes/100 WBC (Bld) 9.8 % C [facility] Neutrophils (Bld) [#/Vol] 2.84 10*3/uL 1.45 - 7.50 k/uL [facility] Neutrophils/100 WBC (Bld) 51.3 % [facility] Nucleated RBC (Bld) [#/Vol] <0.01 k/uL [facility] Nucleated RBC/100 WBC (Bld) [Ratio] 0.0 /100 WBC [facility] Platelet mean volume (Bld) [Entitic vol] 10.2 fL 9.0 - 12.7 fL [facility] Platelets (Bld) [#/Vol] 245 10*3/uL 150 - 400 k/uL [facility] RBC (Bld) [#/Vol] 3.95 10*6/uL 3.90 - 5.2 0 m/uL [facility] WBC (Bld) [#/Vol] 5.53 10*3/uL 3.70 - 11. 00 k/uL [facility] Basophils (Bld) [#/Vol] 0.05 10*3/uL Normal <0.11 [facility] Comment on above: Order Comment: Speci men Type: BLOOD SPECIMENOrdering Facility: [facility] Address: [address] [place] [address] Performed By: #### 5 7021-8 ####BERRIOS LABORATORYCLIA [id number] [place] [address] [place] Basophils/100 WBC (Bld) 0.9 % Normal C [facility] Comment on above: Order Comment: Speci men Type: BLOOD SPECIMENOrdering Facility: [facility] Address: [address] [place] [address] Performed By: #### 5 7021-8 ####BERRIOS LABORATORYCLIA [id number] [place] [address] [place] Differential cell count method Nom (Bld) Auto Normal [facility] Comment on above: Order Comment: Speci men Type: BLOOD SPECIMENOrdering Facility: [facility] Address: [address] [place] [address] Performed By: #### 5 7021-8 ####BERRIOS LABORATORYCLIA [id number] [place] [address] [place] Eosinophils (Bld) [#/Vol] 0.17 10*3/uL Normal <0.46 [facility] Comment on above: Order Comment: Speci men Type: BLOOD SPECIMENOrdering Facility: [facility] Address: [address] [place] [address] Performed By: #### 5 7021-8 ####BERRIOS LABORATORYCLIA [id number] [place] [address] [place] Eosinophils/100 WBC (Bld) 3.1 % Normal [facility] Comment on above: Order Comment: Speci men Type: BLOOD SPECIMENOrdering Facility: [facility] Address: [address] [place] [address] Performed By: #### 5 7021-8 ####BERRIOS LABORATORYCLIA [id number] [place] [address] [place] Erythrocyte distribution width (RBC) [Ratio] 13.9 % Normal 11.5-15.0 [facility] Comment on above: Order Comment: Speci men Type: BLOOD SPECIMENOrdering Facility: [facility] Address: [address] [place] [address] Performed By: #### 5 7021-8 ####BERRIOS LABORATORYCLIA [id number] [place] [address] [place] Hematocrit (Bld) [Volume fraction] 38.0 % Normal 36.0-46.0 [facility] Comment on above: Order Comment: Speci men Type: BLOOD SPECIMENOrdering Facility: [facility] Address: [address] [place] [address] Performed By: #### 5 7021-8 ####BERRIOS LABORATORYCLIA [id number] [place] [id number] [place] Hemoglobin (Bld) [Mass/Vol] 12.1 g/dL Normal 11.5-15.5 [facility] Comment on above: Order Comment: Speci men Type: BLOOD SPECIMENOrdering Facility: [facility] Address: [address] [place] [address] Performed By: #### 5 7021-8 ####BERRIOS LABORATORYCLIA [id number] [place] [address] [place] Immature granulocytes (Bld) [#/Vol] 0.03 10*3/uL Normal <0.10 [facility] Comment on above: Order Comment: Speci men Type: BLOOD SPECIMENOrdering Facility: [facility] Address: [address] [place] [address] Performed By: #### 5 7021-8 ####BERRIOS LABORATORYCLIA [id number] [address] Immature granulocytes/100 WBC (Bld) 0.5 % Normal [facility] Comment on above: Order Comment: Speci men Type: BLOOD SPECIMENOrdering Facility: [facility] Address: [address] [place] [address] Performed By: #### 5 7021-8 ####BERRIOS LABORATORYCLIA [id number] [place] [address] [place] Lymphocytes (Bld) [#/Vol] 1.90 10*3/uL Normal 1.00-4.00 [facility] Comment on above: Order Comment: Speci men Type: BLOOD SPECIMENOrdering Facility: [facility] Address: [address] [place] [address] Performed By: #### 5 7021-8 ####BERRIOS LABORATORYCLIA [id number] [address] [place] Lymphocytes/100 WBC (Bld) 34.4 % Normal [facility] Comment on above: Order Comment: Speci men Type: BLOOD SPECIMENOrdering Facility: [facility] Address: [address] [place] [address] Performed By: #### 5 7021-8 ####BERRIOS LABORATORYCLIA [id number] [place] [address] [place] MCH (RBC) [Entitic mass] 30.6 pg Normal 26.0-34.0 [facility] Comment on above: Order Comment: Speci men Type: BLOOD SPECIMENOrdering Facility: [facility] Address: [address] [place] [address] Performed By: #### 5 7021-8 ####BERRIOS LABORATORYCLIA [id number] [place] [address] [place] MCHC (RBC) [Mass/Vol] 31.8 g/dL Normal 30.5-36.0 [facility] Comment on above: Order Comment: Speci men Type: BLOOD SPECIMENOrdering Facility: [facility] Address: [address] [place] [address] Performed By: #### 5 7021-8 ####BERRIOS LABORATORYCLIA [id number] [address] [place] MCV (RBC) [Entitic vol] 96.2 fL Normal 80.0-100.0 C [facility] Comment on above: Order Comment: Speci men Type: BLOOD SPECIMENOrdering Facility: [facility] Address: [address] [place] [address] Performed By: #### 5 7021-8 ####BERRIOS LABORATORYCLIA [id number] [place] [address] [place] Monocytes (Bld) [#/Vol] 0.54 10*3/uL Normal <0.87 [facility] Comment on above: Order Comment: Speci men Type: BLOOD SPECIMENOrdering Facility: [facility] Address: [address] [place] [address] Performed By: #### 5 7021-8 ####BERRIOS LABORATORYCLIA [id number] [address] Monocytes/100 WBC (Bld) 9.8 % Normal C [facility] Comment on above: Order Comment: Speci men Type: BLOOD SPECIMENOrdering Facility: [facility] Address: [address] [place] [address] Performed By: #### 5 7021-8 ####BERRIOS LABORATORYCLIA [id number] [place] [address] [place] Neutrophils (Bld) [#/Vol] 2.84 10*3/uL Normal 1.45-7.50 [facility] Comment on above: Order Comment: Speci men Type: BLOOD SPECIMENOrdering Facility: [facility] Address: [address] [place] [address] Performed By: #### 5 7021-8 ####BERRIOS LABORATORYCLIA [id number] [place] [address] Neutrophils/100 WBC (Bld) 51.3 % Normal [facility] Comment on above: Order Comment: Speci men Type: BLOOD SPECIMENOrdering Facility: [facility] Address: [address] [place] [address] Performed By: #### 5 7021-8 ####BERRIOS LABORATORYCLIA [id number] [place] [address] [facility] [place] Nucleated RBC (Bld) [#/Vol] 10*3/uL Normal <0.01 [facility] Comment on above: Order Comment: Speci men Type: BLOOD SPECIMENOrdering Facility: [facility] Address: [address] [place] [address] Performed By: #### 5 7021-8 ####BERRIOS LABORATORYCLIA [id number] [address] [place] Nucleated RBC/100 WBC (Bld) [Ratio] 0.0 /100 WBC Normal [facility] Comment on above: Order Comment: Speci men Type: BLOOD SPECIMENOrdering Facility: [facility] Address: [address] [place] [address] Performed By: #### 5 7021-8 ####BERRIOS LABORATORYCLIA [id number] [place] [address] [place] Platelet mean volume (Bld) [Entitic vol] 10.2 fL Normal 9.0-12.7 [facility] Comment on above: Order Comment: Speci men Type: BLOOD SPECIMENOrdering Facility: [facility] Address: [address] [place] [address] Performed By: #### 5 7021-8 ####BERRIOS LABORATORYCLIA [id number] [place] [address] [place] Platelets (Bld) [#/Vol] 245 10*3/uL Normal 150-400 [facility] Comment on above: Order Comment: Speci men Type: BLOOD SPECIMENOrdering Facility: [facility] Address: [address] [place] [address] Performed By: #### 5 7021-8 ####BERRIOS LABORATORYCLIA [id number] [address] RBC (Bld) [#/Vol] 3.95 10*6/uL Normal 3.90-5.20 [facility] Comment on above: Order Comment: Speci men Type: BLOOD SPECIMENOrdering Facility: [facility] Address: [address] [place] [address] Performed By: #### 5 7021-8 ####BERRIOS LABORATORYCLIA [id number] [place] [id number] [facility] WBC (Bld) [#/Vol] 5.53 10*3/uL Normal 3.70-11.00 [facility] Comment on above: Order Comment: Speci men Type: BLOOD SPECIMENOrdering Facility: [facility] Address: [address] [place] [address] Performed By: #### 5 7021-8 ####BERRIOS LABORATORYCLIA [id number] [place] [id number] [place] Basic metabolic 2000 panelon 11-25-2022 Anion gap [Moles/Vol] 10 mmol/L 9 - 18 mmol/L [facility] Calcium [Mass/Vol] 9.5 mg/dL 8.5 - 10. 2 mg/dL [facility] Chloride [Moles/Vol] 106 mmol/L High 97 - 10 5 mmol/L [facility] CO2 [Moles/Vol] 26 mmol/L 22 - 30 mmol/L [facility] Creatinine [Mass/Vol] 1.13 mg/dL High 0.58 - 0.96 mg/dL [facility] Estimated Glomerular Filtration Rate 50 mL/min/1.73m Low >=60 mL/min/1.73m [facility] Glucose [Mass/Vol] 89 mg/dL 74 - 99 mg/dL [facility] Potassium [Moles/Vol] 4.2 mmol/L 3.7 - 5.1 mmol/L [facility] Sodium [Moles/Vol] 142 mmol/L 136 - 144 mmol/L [facility] Urea nitrogen [Mass/Vol] 32 mg/dL High 7 - 21 mg/d L [facility] Anion gap [Moles/Vol] 10 mmol/L Normal 9-18 [facility] Comment on above: Order Comment: Speci men Type: BLOOD SPECIMENOrdering Facility: [facility] Address: [address] [place] [address] Performed By: #### 2 4321-2 ####BERRIOS LABORATORYCLIA [id number] [place] [address] [place] Calcium [Mass/Vol] 9.5 mg/dL Normal 8.5-10.2 [facility] Comment on above: Order Comment: Speci men Type: BLOOD SPECIMENOrdering Facility: [facility] Address: [address] [place] [address] Performed By: #### 2 4321-2 ####BERRIOS LABORATORYCLIA [id number] [place] [address] [place] Chloride [Moles/Vol] 106 mmol/L High 97-105 [facility] Comment on above: Order Comment: Speci men Type: BLOOD SPECIMENOrdering Facility: [facility] Address: [address] [place] [address] Performed By: #### 2 4321-2 ####BERRIOS LABORATORYCLIA [id number] [place] [address] [place] CO2 [Moles/Vol] 26 mmol/L Normal 22-30 [facility] Comment on above: Order Comment: Speci men Type: BLOOD SPECIMENOrdering Facility: [facility] Address: [address] [place] [address] Performed By: #### 2 4321-2 ####BERRIOS LABORATORYCLIA [id number] [place] [id number] [place] Creatinine [Mass/Vol] 1.13 mg/dL High 0.58-0.96 [facility] Comment on above: Order Comment: Speci men Type: BLOOD SPECIMENOrdering Facility: [facility] Address: [address] [place] [address] Performed By: #### 2 4321-2 ####BERRIOS LABORATORYCLIA [id number] [place] [address] [place] ESTIMATED GLOMERULAR FILTRATION RATE 50 mL/min/1.73m??? Low >=60 [facility] Comment on above: Order Comment: Jordyn finch Type: BLOOD SPECIMENOrdering Facility: [facility] Address: [address] [place] [address] Result Comment: Caroline mated Glomerular Filtration Rate (eGFR) is calculated using the 2020 CKD-EPI creatinine equation. This equation utilizes serum creatinine, sex, and age as parameters. The creatinine assay has traceable calibration to isotope dilution-mass spectrometry. Refer to KDIGO guidelines for clinical interpretation. In patients with unstable renal function, e.g. those with acute kidney injury, the eGFR may not accurately reflect actual GFR. Performed By: #### 2 4321-2 ####BERRIOS LABORATORYCLIA [id number] [place] [id number] [place] Glucose [Mass/Vol] 89 mg/dL Normal 74-99 [facility] Comment on above: Order Comment: Jordyn finch Type: BLOOD SPECIMENOrdering Facility: [facility] Address: [address] [place] [address] Result Comment: The [place] [employer] (ADA) provides guidance for cutoff values for fasting glucose and random glucose. The ADA defines fasting as no caloric intake for at least 8 hours. Fasting plasma glucose results between 100 to 125 mg/dL indicate increased risk for diabetes (prediabetes). Fasting plasma glucose results greater than or equal to 126 mg/dL meet the criteria for diagnosis of diabetes. In the absence of unequivocal hyperglycemia, results should be confirmed by repeat testing. In a patient with classic symptoms of hyperglycemia or hyperglycemic crisis, random plasma glucose results greater than or equal to 200 mg/dL meet the criteria for diagnosis of diabetes. Reference: Standards of Medical Care in Diabetes 2016, [place] [employer]. Diabetes Care. 2016.39(Suppl 1). Performed By: #### 2 4321-2 ####BERRIOS LABORATORYCLIA [id number] [place] [id number] [place] Potassium [Moles/Vol] 4.2 mmol/L Normal 3.7-5.1 [facility] Comment on above: Order Comment: Jordyn finch Type: BLOOD SPECIMENOrdering Facility: [facility] Address: [address] [place] [address] Performed By: #### 2 4321-2 ####BERRIOS LABORATORYCLIA [id number] [address] Sodium [Moles/Vol] 142 mmol/L Normal 136-144 [facility] Comment on above: Order Comment: Speci men Type: BLOOD SPECIMENOrdering Facility: [facility] Address: [address] [place] [address] Performed By: #### 2 4321-2 ####BERRIOS LABORATORYCLIA [id number] [address] [place] [facility] Urea nitrogen [Mass/Vol] 32 mg/dL High 7-21 [facility] Comment on above: Order Comment: Speci men Type: BLOOD SPECIMENOrdering Facility: [facility] Address: [address] [place] [address] Performed By: #### 2 4321-2 ####BERRIOS LABORATORYCLIA [id number] [address] [place] CBC W Auto Differential pane l (Bld)on 11-25-2022 Basophils (Bld) [#/Vol] 0.05 10*3/uL <0.11 k/uL [facility] Basophils/100 WBC (Bld) 0.7 % [facility] Differential cell count method Nom (Bld) Auto [facility] Eosinophils (Bld) [#/Vol] 0.21 10*3/uL <0.46 k/uL [facility] Eosinophils/100 WBC (Bld) 3.1 % [facility] Erythrocyte distribution width (RBC) [Ratio] 13.8 % 11.5 - 15.0 % [facility] Hematocrit (Bld) [Volume fraction] 37.0 % 36.0 - 46.0 % [facility] Hemoglobin (Bld) [Mass/Vol] 12.1 g/dL 11.5 - 15.5 g/dL [facility] Immature granulocytes (Bld) [#/Vol] 0.03 10*3/uL <0.10 k/uL [facility] Immature granulocytes/100 WBC (Bld) 0.4 % [facility] Lymphocytes (Bld) [#/Vol] 2.05 10*3/uL 1.00 - 4.00 k/uL [facility] Lymphocytes/100 WBC (Bld) 30.4 % [facility] MCH (RBC) [Entitic mass] 30.5 pg 26. 0 - 34.0 pg [facility] MCHC (RBC) [Mass/Vol] 32.7 g/dL 30.5 - 36.0 g/dL [facility] MCV (RBC) [Entitic vol] 93.2 fL 80.0 - 100.0 fL [facility] Monocytes (Bld) [#/Vol] 0.69 10*3/uL <0.87 k/uL [facility] Monocytes/100 W[facility] (Bld) 10.2 % [facility] Neutrophils (Bld) [#/Vol] 3.71 10*3/uL 1.45 - 7.50 k/uL [facility] Neutrophils/100 WBC (Bld) 55.2 % [facility] Nucleated RBC (Bld) [#/Vol] <0.01 k/uL [facility] Nucleated RBC/100 WBC (Bld) [Ratio] 0.0 /100 WBC [facility] Platelet mean volume (Bld) [Entitic vol] 9.7 fL 9.0 - 12.7 fL [facility] Platelets (Bld) [#/Vol] 264 10*3/uL 150 - 400 k/uL [facility] RBC (Bld) [#/Vol] 3.97 10*6/uL 3.90 - 5.2 0 m/uL [facility] WBC (Bld) [#/Vol] 6.74 10*3/uL 3.70 - 11. 00 k/uL [facility] Basophils (Bld) [#/Vol] 0.05 10*3/uL Normal <0.11 [facility] Comment on above: Order Comment: Speci men Type: BLOOD SPECIMENOrdering Facility: [facility] Address: [address] [place] [address] Performed By: #### 5 7021-8 ####BERRIOS LABORATORYCLIA [id number] [address] [place] [facility] Basophils/100 WBC (Bld) 0.7 % Normal C [facility] Comment on above: Order Comment: Speci men Type: BLOOD SPECIMENOrdering Facility: [facility] Address: [address] [place] [address] Performed By: #### 5 7021-8 ####BERRIOS LABORATORYCLIA [id number] [place] [id number] [place] Differential cell count method Nom (Bld) Auto Normal [facility] Comment on above: Order Comment: Speci men Type: BLOOD SPECIMENOrdering Facility: [facility] Address: [address] [place] [address] Performed By: #### 5 7021-8 ####BERRIOS LABORATORYCLIA [id number] [place] [address] [place] Eosinophils (Bld) [#/Vol] 0.21 10*3/uL Normal <0.46 [facility] Comment on above: Order Comment: Speci men Type: BLOOD SPECIMENOrdering Facility: [facility] Address: [address] [place] [address] Performed By: #### 5 7021-8 ####BERRIOS LABORATORYCLIA [id number] [place] [address] [place] Eosinophils/100 WBC (Bld) 3.1 % Normal [facility] Comment on above: Order Comment: Speci men Type: BLOOD SPECIMENOrdering Facility: [facility] Address: [address] [place] [address] Performed By: #### 5 7021-8 ####BERRIOS LABORATORYCLIA [id number] [place] [address] [place] Erythrocyte distribution width (RBC) [Ratio] 13.8 % Normal 11.5-15.0 [facility] Comment on above: Order Comment: Speci men Type: BLOOD SPECIMENOrdering Facility: [facility] Address: [address] [place] [address] Performed By: #### 5 7021-8 ####BERRIOS LABORATORYCLIA [id number] [place] [address] [place] Hematocrit (Bld) [Volume fraction] 37.0 % Normal 36.0-46.0 [facility] Comment on above: Order Comment: Speci men Type: BLOOD SPECIMENOrdering Facility: [facility] Address: [address] [place] [address] Performed By: #### 5 7021-8 ####BERRIOS LABORATORYCLIA [id number] [place] [address] [place] Hemoglobin (Bld) [Mass/Vol] 12.1 g/dL Normal 11.5-15.5 [facility] Comment on above: Order Comment: Speci men Type: BLOOD SPECIMENOrdering Facility: [facility] Address: [address] [place] [address] Performed By: #### 5 7021-8 ####BERRIOS LABORATORYCLIA [id number] [place] [address] [place] Immature granulocytes (Bld) [#/Vol] 0.03 10*3/uL Normal <0.10 [facility] Comment on above: Order Comment: Speci men Type: BLOOD SPECIMENOrdering Facility: [facility] Address: [address] [place] [address] Performed By: #### 5 7021-8 ####BERRIOS LABORATORYCLIA [id number] [place] [address] [place] Immature granulocytes/100 WBC (Bld) 0.4 % Normal [facility] Comment on above: Order Comment: Speci men Type: BLOOD SPECIMENOrdering Facility: [facility] Address: [address] [place] [address] Performed By: #### 5 7021-8 ####BERRIOS LABORATORYCLIA [id number] [place] [address] [place] Lymphocytes (Bld) [#/Vol] 2.05 10*3/uL Normal 1.00-4.00 [facility] Comment on above: Order Comment: Speci men Type: BLOOD SPECIMENOrdering Facility: [facility] Address: [address] [place] [address] Performed By: #### 5 7021-8 ####BERRIOS LABORATORYCLIA [id number] [place] [address] [place] Lymphocytes/100 WBC (Bld) 30.4 % Normal [facility] Comment on above: Order Comment: Speci men Type: BLOOD SPECIMENOrdering Facility: [facility] Address: [address] [place] [address] Performed By: #### 5 7021-8 ####BERRIOS LABORATORYCLIA [id number] [address] MCH (RBC) [Entitic mass] 30.5 pg Normal 26.0-34.0 [facility] Comment on above: Order Comment: Speci men Type: BLOOD SPECIMENOrdering Facility: [facility] Address: [address] [place] [address] Performed By: #### 5 7021-8 ####BERRIOS LABORATORYCLIA [id number] [address] [place] MCHC (RBC) [Mass/Vol] 32.7 g/dL Normal 30.5-36.0 [facility] Comment on above: Order Comment: Speci men Type: BLOOD SPECIMENOrdering Facility: [facility] Address: [address] [place] [address] Performed By: #### 5 7021-8 ####BERRIOS LABORATORYCLIA [id number] [address] MCV (RBC) [Entitic vol] 93.2 fL Normal 80.0-100.0 C [facility] Comment on above: Order Comment: Speci men Type: BLOOD SPECIMENOrdering Facility: [facility] Address: [address] [place] [address] Performed By: #### 5 7021-8 ####BERRIOS LABORATORYCLIA [id number] [address] Monocytes (Bld) [#/Vol] 0.69 10*3/uL Normal <0.87 [facility] Comment on above: Order Comment: Speci men Type: BLOOD SPECIMENOrdering Facility: [facility] Address: [address] [place] [address] Performed By: #### 5 7021-8 ####BERRIOS LABORATORYCLIA [id number] [place] [address] [place] Monocytes/100 WBC (Bld) 10.2 % Normal C [facility] Comment on above: Order Comment: Speci men Type: BLOOD SPECIMENOrdering Facility: [facility] Address: [address] [place] [address] Performed By: #### 5 7021-8 ####BERRIOS LABORATORYCLIA [id number] [place] [address] [place] Neutrophils (Bld) [#/Vol] 3.71 10*3/uL Normal 1.45-7.50 [facility] Comment on above: Order Comment: Speci men Type: BLOOD SPECIMENOrdering Facility: [facility] Address: [address] [place] [address] Performed By: #### 5 7021-8 ####BERRIOS LABORATORYCLIA [id number] [place] [address] [place] Neutrophils/100 WBC (Bld) 55.2 % Normal [facility] Comment on above: Order Comment: Speci men Type: BLOOD SPECIMENOrdering Facility: [facility] Address: [address] [place] [address] Performed By: #### 5 7021-8 ####BERRIOS LABORATORYCLIA [id number] [place] [address] [place] Nucleated RBC (Bld) [#/Vol] 10*3/uL Normal <0.01 [facility] Comment on above: Order Comment: Speci men Type: BLOOD SPECIMENOrdering Facility: [facility] Address: [address] [place] [address] Performed By: #### 5 7021-8 ####BERRIOS LABORATORYCLIA [id number] [place] [address] [place] Nucleated RBC/100 WBC (Bld) [Ratio] 0.0 /100 WBC Normal [facility] Comment on above: Order Comment: Speci men Type: BLOOD SPECIMENOrdering Facility: [facility] Address: [address] [place] [address] Performed By: #### 5 7021-8 ####BERRIOS LABORATORYCLIA [id number] [place] [address] [place] Platelet mean volume (Bld) [Entitic vol] 9.7 fL Normal 9.0-12.7 [facility] Comment on above: Order Comment: Speci men Type: BLOOD SPECIMENOrdering Facility: [facility] Address: [address] [place] [address] Performed By: #### 5 7021-8 ####BERRISO LABORATORYCLIA [id number] [place] [id number] [place] Platelets (Bld) [#/Vol] 264 10*3/uL Normal 150-400 [facility] Comment on above: Order Comment: Speci men Type: BLOOD SPECIMENOrdering Facility: [facility] Address: [address] [place] [address] Performed By: #### 5 7021-8 ####BERRIOS LABORATORYCLIA [id number] [place] [address] [place] RBC (Bld) [#/Vol] 3.97 10*6/uL Normal 3.90-5.20 [facility] Comment on above: Order Comment: Speci men Type: BLOOD SPECIMENOrdering Facility: [facility] Address: [address] [place] [address] Performed By: #### 5 7021-8 ####BERRIOS LABORATORYCLIA [id number] [place] [id number] [place] WBC (Bld) [#/Vol] 6.74 10*3/uL Normal 3.70-11.00 [facility] Comment on above: Order Comment: Speci men Type: BLOOD SPECIMENOrdering Facility: [facility] Address: [address] [place] [address] Performed By: #### 5 7021-8 ####BERRIOS LABORATORYCLIA [id number] [place] [id number] [place] Basic metabolic 2000 panelon 11-21-2022 Anion gap [Moles/Vol] 9 mmol/L 9 - 18 mmol/L [facility] Calcium [Mass/Vol] 9.3 mg/dL 8.5 - 10. 2 mg/dL [facility] Chloride [Moles/Vol] 107 mmol/L High 97 - 10 5 mmol/L [facility] CO2 [Moles/Vol] 23 mmol/L 22 - 30 mmol/L [facility] Creatinine [Mass/Vol] 1.13 mg/dL High 0.58 - 0.96 mg/dL [facility] Estimated Glomerular Filtration Rate 50 mL/min/1.73m Low >=60 mL/min/1.73m [facility] Glucose [Mass/Vol] 99 mg/dL 74 - 99 mg/dL [facility] Potassium [Moles/Vol] 4.1 mmol/L 3.7 - 5.1 mmol/L [facility] Sodium [Moles/Vol] 139 mmol/L 136 - 144 mmol/L [facility] Urea nitrogen [Mass/Vol] 43 mg/dL High 7 - 21 mg/d L [facility] CBC W Auto Differential pane l (Bld)on 11-21-2022 Basophils (Bld) [#/Vol] 0.05 10*3/uL <0.11 k/uL [facility] Basophils/100 WBC (Bld) 0.9 % C [facility] Differential cell count method Nom (Bld) Auto [facility] Eosinophils (Bld) [#/Vol] 0.16 10*3/uL <0.46 k/uL [facility] Eosinophils/100 WBC (Bld) 2.8 % [facility] Erythrocyte distribution width (RBC) [Ratio] 13.6 % 11.5 - 15.0 % [facility] Hematocrit (Bld) [Volume fraction] 36.2 % 36.0 - 46.0 % [facility] Hemoglobin (Bld) [Mass/Vol] 11.5 g/dL 11.5 - 15.5 g/dL [facility] Immature granulocytes (Bld) [#/Vol] 0.04 10*3/uL <0.10 k/uL [facility] Immature granulocytes/100 WBC (Bld) 0.7 % [facility] Lymphocytes (Bld) [#/Vol] 1.79 10*3/uL 1.00 - 4.00 k/uL [facility] Lymphocytes/100 WBC (Bld) 31.3 % [facility] MCH (RBC) [Entitic mass] 30.1 pg 26. 0 - 34.0 pg [facility] MCHC (RBC) [Mass/Vol] 31.8 g/dL 30.5 - 36.0 g/dL [facility] MCV (RBC) [Entitic vol] 94.8 fL 80.0 - 100.0 fL [facility] Monocytes (Bld) [#/Vol] 0.62 10*3/uL <0.87 k/uL [facility] Monocytes/100 WBC (Bld) 10.8 % C [facility] Neutrophils (Bld) [#/Vol] 3.06 10*3/uL 1.45 - 7.50 k/uL [facility] Neutrophils/100 WBC (Bld) 53.5 % [facility] Nucleated RBC (Bld) [#/Vol] <0.01 k/uL [facility] Nucleated RBC/100 WBC (Bld) [Ratio] 0.0 /100 WBC [facility] Platelet mean volume (Bld) [Entitic vol] 10.0 fL 9.0 - 12.7 fL [facility] Platelets (Bld) [#/Vol] 239 10*3/uL 150 - 400 k/uL [facility] RBC (Bld) [#/Vol] 3.82 10*6/uL Low 3.90 - 5.2 0 m/uL [facility] WBC (Bld) [#/Vol] 5.72 10*3/uL 3.70 - 11. 00 k/uL [facility] Basic metabolic 2000 panelon 11-18-2022 Anion gap [Moles/Vol] 12 mmol/L 9 - 18 mmol/L [facility] Calcium [Mass/Vol] 9.3 mg/dL 8.5 - 10. 2 mg/dL [facility] Chloride [Moles/Vol] 105 mmol/L 97 - 10 5 mmol/L [facility] CO2 [Moles/Vol] 24 mmol/L 22 - 30 mmol/L [facility] Creatinine [Mass/Vol] 1.22 mg/dL High 0.58 - 0.96 mg/dL [facility] Estimated Glomerular Filtration Rate 45 mL/min/1.73m Low >=60 mL/min/1.73m [facility] Glucose [Mass/Vol] 90 mg/dL 74 - 99 mg/dL [facility] Potassium [Moles/Vol] 3.8 mmol/L 3.7 - 5.1 mmol/L [facility] Sodium [Moles/Vol] 141 mmol/L 136 - 144 mmol/L [facility] Urea nitrogen [Mass/Vol] 34 mg/dL High 7 - 21 mg/d L [facility] CBC panel Auto (Bld)on 11-18 Erythrocyte distribution width (RBC) [Ratio] 13.7 % 11.5 - 15.0 % [facility] Hematocrit (Bld) [Volume fraction] 39.9 % 36.0 - 46.0 % [facility] Hemoglobin (Bld) [Mass/Vol] 12.7 g/dL 11.5 - 15.5 g/dL [facility] MCH (RBC) [Entitic mass] 30.1 pg 26. 0 - 34.0 pg [facility] MCHC (RBC) [Mass/Vol] 31.8 g/dL 30.5 - 36.0 g/dL [facility] MCV (RBC) [Entitic vol] 94.5 fL 80.0 - 100.0 fL [facility] Nucleated RBC (Bld) [#/Vol] <0.01 k/uL [facility] Platelet mean volume (Bld) [Entitic vol] 9.8 fL 9.0 - 12.7 fL [facility] Platelets (Bld) [#/Vol] 240 10*3/uL 150 - 400 k/uL [facility] RBC (Bld) [#/Vol] 4.22 10*6/uL 3.90 - 5.2 0 m/uL [facility] WBC (Bld) [#/Vol] 6.40 10*3/uL 3.70 - 11. 00 k/uL [facility] Vital Signs Date Time Vital Sign Value Performing Clinician Facility 05-13-2024 14:32-0500 Body height 162.6 cm Apurva Bruno APRN.ONLINE MARKETING STRATEGIST Work Phone: [facility] 05-13-2024 14:32-0500 Body mass index (BMI) [Ratio] 30.38 kg/m2 Apurva Bruno APRN.CNP Work Phone: [facility] 05-13-2024 14:32-0500 Body weight 80.29 kg Apurva Bruno APRN.ONLINE MARKETING STRATEGIST Work Phone: [facility] Comment on above: per last visit, pt in wheelchair 05-13-2024 14:32-0500 Diastolic blood pressure 83 mm[Hg] Apurva Hollaender C S S REPRESENTATIVE.ONLINE MARKETING STRATEGIST Work Phone: [facility] 05-13-2024 14:32-0500 Heart rate 68 /min Apurva Hollaender C S S REPRESENTATIVE.ONLINE MARKETING STRATEGIST Work Phone: [facility] 05-13-2024 14:32-0500 Systolic blood pressure 146 mm[Hg] Apurva Hollaender C S S REPRESENTATIVE.ONLINE MARKETING STRATEGIST Work Phone: [facility] 11-21-2023 14:04-0400 Body height 162.6 cm Lashanda Bernhart C S S REPRESENTATIVE.ONLINE MARKETING STRATEGIST Work Phone: [facility] 11-21-2023 14:04-0400 Diastolic blood pressure 83 mm[Hg] Lashanda Bernhart C S S REPRESENTATIVE.ONLINE MARKETING STRATEGIST Work Phone: [facility] 11-21-2023 14:04-0400 Heart rate 85 /min Lashanda Bernhart C S S REPRESENTATIVE.ONLINE MARKETING STRATEGIST Work Phone: [facility] 11-21-2023 14:04-0400 SaO2% (BldA) [Mass fraction] 98 % Lashanda Bernhart C S S REPRESENTATIVE.ONLINE MARKETING STRATEGIST Work Phone: [facility] 11-21-2023 14:04-0400 Systolic blood pressure 140 mm[Hg] Lashanda Bernhart C S S REPRESENTATIVE.ONLINE MARKETING STRATEGIST Work Phone: [facility] 11-12-2023 13:16-0400 Body height 162.6 cm Apurva Hollaender C S S REPRESENTATIVE.ONLINE MARKETING STRATEGIST Work Phone: [facility] 11-12-2023 13:16-0400 Body mass index (BMI) [Ratio] 30.38 kg/m2 Apurva Hollaender C S S REPRESENTATIVE.ONLINE MARKETING STRATEGIST Work Phone: [facility] 11-12-2023 13:16-0400 Body weight 80.29 kg Apurva Hollaender C S S REPRESENTATIVE.ONLINE MARKETING STRATEGIST Work Phone: [facility] 11-12-2023 13:16-0400 Diastolic blood pressure 49 mm[Hg] Apurva Hollaender C S S REPRESENTATIVE.ONLINE MARKETING STRATEGIST Work Phone: [facility] 11-12-2023 13:16-0400 Heart rate 62 /min Apurva Hollaender C S S REPRESENTATIVE.ONLINE MARKETING STRATEGIST Work Phone: [facility] 11-12-2023 13:16-0400 Systolic blood pressure 122 mm[Hg] Apurva Hollaender C S S REPRESENTATIVE.ONLINE MARKETING STRATEGIST Work Phone: [facility] 04-14-2023 15:08-0400 Body temperature 97.9 [degF] Lashanda Bernhart C S S REPRESENTATIVE.ONLINE MARKETING STRATEGIST Work Phone: [facility] 04-14-2023 15:08-0400 Diastolic blood pressure 60 mm[Hg] Lashanda Bernhart C S S REPRESENTATIVE.ONLINE MARKETING STRATEGIST Work Phone: [facility] 04-14-2023 15:08-0400 Heart rate 66 /min Lashanda Bernhart C S S REPRESENTATIVE.ONLINE MARKETING STRATEGIST Work Phone: [facility] 04-14-2023 15:08-0400 SaO2% (BldA) [Mass fraction] 98 % Lashanda Bernhart C S S REPRESENTATIVE.ONLINE MARKETING STRATEGIST Work Phone: [facility] 04-14-2023 15:08-0400 Systolic blood pressure 112 mm[Hg] Lashanda Bernhart C S S REPRESENTATIVE.ONLINE MARKETING STRATEGIST Work Phone: [facility] 02-13-2023 13:42-0400 Body height 162.6 cm Apurva Hollaender C S S REPRESENTATIVE.ONLINE MARKETING STRATEGIST Work Phone: [facility] 02-13-2023 13:42-0400 Body weight 80.29 kg Apurva Hollaender C S S REPRESENTATIVE.ONLINE MARKETING STRATEGIST Work Phone: [facility] 02-13-2023 13:42-0400 Diastolic blood pressure 54 mm[Hg] Apurva Hollaender C S S REPRESENTATIVE.ONLINE MARKETING STRATEGIST Work Phone: [facility] 02-13-2023 13:42-0400 Heart rate 75 /min Apurva Hollaender C S S REPRESENTATIVE.ONLINE MARKETING STRATEGIST Work Phone: [facility] 02-13-2023 13:42-0400 Systolic blood pressure 105 mm[Hg] Apurva Cheriender C S S REPRESENTATIVE.ONLINE MARKETING STRATEGIST Work Phone: [facility] 02-03-2023 13:05-0400 Body height 165.1 cm Griselda Guillermo PA-C Work Phone: [facility] 02-03-2023 13:05-0400 Body weight 82.56 kg Griselda Guillermo PA-C Work Phone: [facility] 02-03-2023 13:05-0400 Diastolic blood pressure 78 mm[Hg] Griselda Guillermo PA-C Work Phone: [facility] 02-03-2023 13:05-0400 Heart rate 77 /min Griselda Guillermo PA-C Work Phone: [facility] 02-03-2023 13:05-0400 Systolic blood pressure 127 mm[Hg] Griselda Guillermo PA-C Work Phone: [facility] 01-31-2023 13:36-0400 Body height 165.1 cm Lashandafrancy Albrecht C S S REPRESENTATIVE.ONLINE MARKETING STRATEGIST Work Phone: [facility] 01-31-2023 13:36-0400 Body weight 75.3 kg Lashanda Clarkt C S S REPRESENTATIVE.ONLINE MARKETING STRATEGIST Work Phone: [facility] 01-31-2023 13:36-0400 Diastolic blood pressure 56 mm[Hg] Lashanda Clarkt C S S REPRESENTATIVE.ONLINE MARKETING STRATEGIST Work Phone: [facility] 01-31-2023 13:36-0400 Heart rate 77 /min Lashanda Clarkt C S S REPRESENTATIVE.ONLINE MARKETING STRATEGIST Work Phone: [facility] 01-31-2023 13:36-0400 SaO2% (BldA) [Mass fraction] 97 % Lashanda Clarkt C S S REPRESENTATIVE.ONLINE MARKETING STRATEGIST Work Phone: [facility] 01-31-2023 13:36-0400 Systolic blood pressure 114 mm[Hg] Lashanda Copebella C S S REPRESENTATIVE.ONLINE MARKETING STRATEGIST Work Phone: [facility] 01-13-2023 10:44-0400 Body temperature 98.01 [degF] Radha Ferreira C S S REPRESENTATIVE.ONLINE MARKETING STRATEGIST Work Phone: [facility] 01-13-2023 10:44-0400 Diastolic blood pressure 56 mm[Hg] Radha Ferreira C S S REPRESENTATIVE.ONLINE MARKETING STRATEGIST Work Phone: [facility] 01-13-2023 10:44-0400 Heart rate 80 /min Radha Ferreira C S S REPRESENTATIVE.ONLINE MARKETING STRATEGIST Work Phone: [facility] 01-13-2023 10:44-0400 Respiratory rate 18 /min Radha Ferreira C S S REPRESENTATIVE.ONLINE MARKETING STRATEGIST Work Phone: [facility] 01-13-2023 10:44-0400 SaO2% (BldA) [Mass fraction] 96 % Radha Ferreira C S S REPRESENTATIVE.ONLINE MARKETING STRATEGIST Work Phone: [facility] 01-13-2023 10:44-0400 Systolic blood pressure 110 mm[Hg] Radha Ferreira C S S REPRESENTATIVE.ONLINE MARKETING STRATEGIST Work Phone: [facility] 01-10-2023 13:13-0400 Body height 165.1 cm Lashanda Clarkshaye BROTHERSN.ONLINE MARKETING STRATEGIST Work Phone: [facility] 01-10-2023 13:13-0400 Body weight 75.3 kg Lashanda Clarkshaye C S S REPRESENTATIVE.ONLINE MARKETING STRATEGIST Work Phone: [facility] 01-10-2023 13:13-0400 Diastolic blood pressure 73 mm[Hg] Lashanda Copebella C S S REPRESENTATIVE.ONLINE MARKETING STRATEGIST Work Phone: [facility] 01-10-2023 13:13-0400 Heart rate 65 /min Lashandafrancy Albrecht C S S REPRESENTATIVE.ONLINE MARKETING STRATEGIST Work Phone: [facility] 01-10-2023 13:13-0400 SaO2% (BldA) [Mass fraction] 96 % Lashanda Albrecht C S S REPRESENTATIVE.ONLINE MARKETING STRATEGIST Work Phone: [facility] 01-10-2023 13:13-0400 Systolic blood pressure 111 mm[Hg] Lashanda Coperadhashaye C S S REPRESENTATIVE.ONLINE MARKETING STRATEGIST Work Phone: [facility] 01-02-2023 21:36-0400 Body temperature 97.59 [degF] Radha Ferreira C S S REPRESENTATIVE.ONLINE MARKETING STRATEGIST Work Phone: [facility] 01-02-2023 21:36-0400 Diastolic blood pressure 76 mm[Hg] Radha Ferreira C S S REPRESENTATIVE.ONLINE MARKETING STRATEGIST Work Phone: [facility] 01-02-2023 21:36-0400 Heart rate 70 /min Radha Ferreira C S S REPRESENTATIVE.ONLINE MARKETING STRATEGIST Work Phone: [facility] 01-02-2023 21:36-0400 Respiratory rate 18 /min Radha Ferreira C S S REPRESENTATIVE.ONLINE MARKETING STRATEGIST Work Phone: [facility] 01-02-2023 21:36-0400 SaO2% (BldA) [Mass fraction] 96 % Radha Ferreira C S S REPRESENTATIVE.ONLINE MARKETING STRATEGIST Work Phone: [facility] 01-02-2023 21:36-0400 Systolic blood pressure 132 mm[Hg] Radha Ferreira C S S REPRESENTATIVE.ONLINE MARKETING STRATEGIST Work Phone: [facility] 12-27-2022 21:53-0400 Body temperature 97.59 [degF] Radha Fererira C S S REPRESENTATIVE.ONLINE MARKETING STRATEGIST Work Phone: [facility] 12-27-2022 21:53-0400 Diastolic blood pressure 65 mm[Hg] Radha Ferreira C S S REPRESENTATIVE.ONLINE MARKETING STRATEGIST Work Phone: [facility] 12-27-2022 21:53-0400 Heart rate 88 /min Radha Ferreira C S S REPRESENTATIVE.ONLINE MARKETING STRATEGIST Work Phone: [facility] 12-27-2022 21:53-0400 Respiratory rate 16 /min Radha Ferreira C S S REPRESENTATIVE.ONLINE MARKETING STRATEGIST Work Phone: [facility] 06-23-2023 21:53-0400 SaO2% (BldA) [Mass fraction] 95 % Radha Ferreira C S S REPRESENTATIVE.ONLINE MARKETING STRATEGIST Work Phone: [facility] 12-27-2022 21:53-0400 Systolic blood pressure 113 mm[Hg] Radha Ferreira C S S REPRESENTATIVE.ONLINE MARKETING STRATEGIST Work Phone: [facility] 12-23-2022 21:34-0400 Body temperature 97.59 [degF] Radha Ferreira C S S REPRESENTATIVE.ONLINE MARKETING STRATEGIST Work Phone: [facility] 12-23-2022 21:34-0400 Diastolic blood pressure 63 mm[Hg] Radha Ferreira C S S REPRESENTATIVE.ONLINE MARKETING STRATEGIST Work Phone: [facility] 12-23-2022 21:34-0400 Heart rate 74 /min Radha Ferreira C S S REPRESENTATIVE.ONLINE MARKETING STRATEGIST Work Phone: [facility] 12-23-2022 21:34-0400 Respiratory rate 18 /min Radha Ferreira C S S REPRESENTATIVE.ONLINE MARKETING STRATEGIST Work Phone: [facility] 12-23-2022 21:34-0400 SaO2% (BldA) [Mass fraction] 96 % Radha Ferreira C S S REPRESENTATIVE.ONLINE MARKETING STRATEGIST Work Phone: [facility] 12-23-2022 21:34-0400 Systolic blood pressure 129 mm[Hg] Radha Ferreira C S S REPRESENTATIVE.ONLINE MARKETING STRATEGIST Work Phone: [facility] 12-19-2022 11:34-0400 Body height 165.1 cm Apurva Bruno C S S REPRESENTATIVE.ONLINE MARKETING STRATEGIST Work Phone: [facility] 12-19-2022 11:34-0400 Body weight 87.09 kg Apurvajordi Bruno C S S REPRESENTATIVE.ONLINE MARKETING STRATEGIST Work Phone: [facility] 12-19-2022 11:34-0400 Diastolic blood pressure 56 mm[Hg] Apurva Bruno C S S REPRESENTATIVE.ONLINE MARKETING STRATEGIST Work Phone: [facility] 12-19-2022 11:34-0400 Heart rate 65 /min Apurva Bruno APRN.CNP Work Phone: [facility] 12-19-2022 11:34-0400 Systolic blood pressure 110 mm[Hg] Apurva Bruno APRN.CNP Work Phone: [facility] Encounters Encounter Date Encounter Type Care Provider Facility Start: 11-12-2024 ambulatory Lashanda clayritchie HAWK Facility:[facility] Start: 11-12-2024 Registered Referred Lashanda [facility] [employer] Start: 11-08-2024 ambulatory Renatodeepakmitul Morrisonphong HAWK Facility:[facility] Start: 11-08-2024 Registered Referred Lashanda [facility] [employer] Start: 11-01-2024 End: 11-01-2024 ambulatory Marcos Екатеринаwinsome HAWK [facility] Work Phone: Start: 11-01-2024 End: 11-01-2024 Departed Referred Marcos [place] [facility] [facility] [employer] Start: 11-01-2024 End: 11-01-2024 ambulatory Marcos HAWK Facility:[facility] Start: 10-27-2024 Registered Referred Lashanda [facility] [employer] Start: 10-27-2024 End: 10-27-2024 ambulatory Lashanda HAWK Facility:[facility] Start: 10-06-2024 End: 10-06-2024 Departed Referred Lashanda [facility] [employer] Start: 10-06-2024 Registered Referred Lashanda [facility] [employer] Start: 10-06-2024 End: 10-06-2024 ambulatory Lashanda HAWK Facility:[facility] Start: 10-01-2024 End: 10-01-2024 ambulatory Marcos Екатеринаwinsome HAWK [facility] Work Phone: Start: 10-01-2024 End: 10-01-2024 Departed Referred Lashanda [facility] [email or web address] Start: 10-01-2024 Registered Referred Lashanda herring [facility] [facility] Start: 10-01-2024 End: 10-01-2024 ambulatory Lashanda HAWK Facility:[facility] Start: 09-07-2024 End: 09-07-2024 ambulatory Marcos HAWK [facility] Work Phone: Start: 09-07-2024 End: 09-07-2024 [facility] Start: 09-07-2024 Registered Referred [facility] Start: 09-07-2024 End: 09-07-2024 ambulatory [facility] Facility:[facility] Start: 08-04-2024 End: 08-04-2024 ambulatory [facility] Work Phone: [facility] Work Phone: Start: 08-04-2024 End: 08-04-2024 Departed Referred Marcos Brown [facility] [employer] [facility] Start: 08-04-2024 End: 08-04-2024 ambulatory Marcos HAWK Facility:[facility] Start: 06-02-2024 ambulatory [facility] Facility:[facility] Start: 06-02-2024 Registered Referred [facility] [employer] [facility] Start: 05-13-2024 End: 05-13-2024 Patient encounter procedure Apurva Bruno APRN.CNP Work Phone: Cerebrovascular Comment on above: Aphasia as late effe ct of cerebrovascular accident (Primary Dx); Hemiparesis affecting right side as late effect of cerebrovascular accident (HCC); Intracranial atherosclerosis; Primary hypertension; Dyslipidemia, goal LDL below 70 Start: 05-13-2024 End: 05-13-2024 ambulatory EVIN GARCIA Facility:[place] [facility] Start: 04-13-2024 End: 04-13-2024 ambulatory Marcos HAWK Facility:[facility] Start: 03-23-2024 End: 03-23-2024 ambulatory Marcos HAWK Facility:[facility] Start: 02-27-2024 ambulatory Marcos HAWK Faci lity:[facility] Start: 02-23-2024 End: 02-23-2024 ambulatory Marcos HAWK Facility:[facility] Start: 01-09-2024 ambulatory Marcos HAWK Faci lity:[facility] Start: 11-21-2023 End: 11-21-2023 ambulatory LASHANDA COPERADHAShaye Facility:[facility] Start: 11-21-2023 End: 11-21-2023 Patient encounter procedure Lashanda Albrecht C S S REPRESENTATIVE.ONLINE MARKETING STRATEGIST Work Phone: Urology Comment on above: Retention of urine ( Primary Dx); Urinary tract infection with hematuria, site unspecified Start: 11-12-2023 End: 11-12-2023 ambulatory VEIN Anitha GARCIA Facility:[place] [facility] Start: 11-12-2023 End: 11-12-2023 Patient encounter procedure Apurva Bruno C S S REPRESENTATIVE.ONLINE MARKETING STRATEGIST Work Phone: Cerebrovascular Comment on above: Aphasia as late effe ct of cerebrovascular accident (Primary Dx); Hemiparesis affecting right side as late effect of cerebrovascular accident (HCC); Intracranial atherosclerosis; Primary hypertension; Dyslipidemia, goal LDL below 70; Persistent depressive disorder Start: 07-02-2023 End: 07-02-2023 ambulatory [facility] Work Phone: Start: 07-02-2023 End: 07-02-2023 Departed Referred [facility] [employer] Start: 06-26-2023 Registered Referred [facility] [employer] [facility] Start: 04-16-2023 End: 04-16-2023 ambulatory [facility] Work Phone: Start: 04-16-2023 End: 04-16-2023 Departed Referred [facility] Start: 04-14-2023 End: 04-14-2023 ambulatory LASHANDA COPERADHAShaye Facility:[facility] Start: 04-14-2023 End: 04-14-2023 Patient encounter procedure Lashanda Albrecht C S S REPRESENTATIVE.ONLINE MARKETING STRATEGIST Work Phone: Urology Comment on above: Retention of urine ( Primary Dx); Urinary tract infection with hematuria, site unspecified Start: 03-31-2023 End: 03-31-2023 Departed Referred [facility] Start: 03-31-2023 Registered Referred [facility] Start: 03-27-2023 End: 03-27-2023 ambulatory [facility] Work Phone: Start: 03-27-2023 End: 03-27-2023 Departed Referred [facility] Start: 03-27-2023 Registered Referred [facility] Start: 03-20-2023 End: 03-20-2023 Departed Referred [facility] Start: 03-20-2023 Registered Referred [facility] Start: 03-13-2023 End: 03-13-2023 ambulatory [facility] Work Phone: Start: 03-13-2023 End: 03-13-2023 Departed Referred [facility] Start: 02-13-2023 End: 02-13-2023 Patient encounter procedure Apurva Bruno C S S REPRESENTATIVE.ONLINE MARKETING STRATEGIST Work Phone: Cerebrovascular Comment on above: Arterial ischemic st roke (HCC) (Primary Dx); Right hemiparesis (HCC); Primary hypertension; Occlusion and stenosis of basilar artery; Dyslipidemia, goal LDL below 70 Start: 02-10-2023 Registered Referred [facility] Start: 02-03-2023 End: 02-03-2023 Patient encounter procedure Griselda Murphy PA-C Work Phone: [facility] Comment on above: Esophageal stricture (Primary Dx) Start: 01-31-2023 End: 02-01-2023 ambulatory LASHANDA ALBRECHT Facility:[facility] Start: 01-31-2023 End: 01-31-2023 Patient encounter procedure Lashanda Albrecht C S S REPRESENTATIVE.ONLINE MARKETING STRATEGIST Work Phone: Urology Comment on above: Retention of urine ( Primary Dx); Urinary tract infection with hematuria, site unspecified Start: 01-13-2023 ambulatory Radha Lacy.ONLINE MARKETING STRATEGIST Work Phone: [facility] Comment on above: 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) (Primary Dx); Leg edema; Repeated falls; Acute urinary retention Start: 01-13-2023 Telemedicine consultation with patient Radha Ferreira APRN.ONLINE MARKETING STRATEGIST Work Phone: [facility] Start: 01-10-2023 End: 01-11-2023 ambulatory EVIN Welsh CHAVA Facility:[facility] Start: 01-10-2023 End: 01-10-2023 Patient encounter procedure Lashanda Coperadhashaye DASHA.ONLINE MARKETING STRATEGIST Work Phone: Urology Comment on above: Transient cerebral i schemia, unspecified type (Primary Dx); Retention of urine; Urinary tract infection with hematuria, site unspecified Start: 01-08-2023 End: 01-08-2023 Subsequent hospital visit by physician Card Lab Stress [facility] Comment on above: Arterial ischemic st roke (HCC) [I63.9] Start: 01-02-2023 ambulatory Radha Lacy.ONLINE MARKETING STRATEGIST Work Phone: [facility] Comment on above: 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) (Primary Dx); Dysphasia; Benign essential HTN; Acute urinary retention; Leg edema Start: 01-02-2023 Telemedicine consultation with patient Radha Ferreira APRN.ONLINE MARKETING STRATEGIST Work Phone: [facility] Start: 12-27-2022 [facility] Radha Lacy.ONLINE MARKETING STRATEGIST Work Phone: [facility] Comment on above: 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) (Primary Dx); Dysphasia; Benign essential HTN; Adjustment disorder with mixed anxiety and depressed mood; Acute urinary retention Start: 12-26-2022 ambulatory Radha Lacy.ONLINE MARKETING STRATEGIST Work Phone: [facility] Comment on above: OPENED IN ERROR (Yani ruben Dx) Start: 12-26-2022 Telemedicine consultation with patient Radha Ferreira APRN.ONLINE MARKETING STRATEGIST Work Phone: [facility] Start: 12-23-2022 [facility] Radha Lacy.ONLINE MARKETING STRATEGIST Work Phone: [facility] Comment on above: 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) (Primary Dx); Dysphasia; Benign essential HTN; Adjustment disorder with mixed anxiety and depressed mood; Acute urinary retention Start: 12-20-2022 End: 12-21-2022 ambulatory EVIN GARCIA Facility:[facility] Start: 12-19-2022 End: 12-19-2022 Patient encounter procedure Apurva Bruno APRN.ONLINE MARKETING STRATEGIST Work Phone: Cerebrovascular Comment on above: Arterial ischemic st roke (HCC) (Primary Dx); Transient cerebral ischemia, unspecified type ; Hyperlipidemia, unspecified hyperlipidemia type; Intracranial atherosclerosis; Mixed hyperlipidemia; Adjustment disorder with mixed anxiety and depressed mood; Disturbance in sleep behavior; Right hemiparesis (HCC) Start: 11-16-2022 End: 12-09-2022 Subsequent hospital visit by physician Suha Brown MD Work Phone: [facility] Start: 11-10-2022 ambulatory Myrna Reyes MD Work Phone: Neurosurgery Comment on above: Arterial ischemic st roke (HCC) (Primary Dx) Start: 11-10-2022 Telemedicine consultation with patient Myrna Reyes MD Work Phone: [facility] Procedures Date Procedure Procedure Detail Performing Clinician Start: 08-04-2024 Measurement of renal function Marcos HAWK Comment on above: GFR Calc Start: 05-13-2024 Follow-up visit Follow Up JURGEN BRUNO Start: 07-02-2023 Urine culture Start: 04-16-2023 Urine culture Start: 03-31-2023 Urine culture Start: 12-09-2022 Basic metabolic pane l calcium total Samy Thomas C S S REPRESENTATIVE Work Phone: Start: 12-05-2022 Basic metabolic pane l calcium total Samy Thomas C S S REPRESENTATIVE Work Phone: Start: 12-02-2022 Basic metabolic pane l calcium total Samy Thomas C S S REPRESENTATIVE Work Phone: Start: 11-28-2022 Basic metabolic pane l calcium total Samy Thomas C S S REPRESENTATIVE Work Phone: Start: 11-25-2022 Basic metabolic pane l calcium total Samy Thomas C S S REPRESENTATIVE Work Phone: Start: 11-21-2022 Basic metabolic pane l calcium total Samy Thomas C S S REPRESENTATIVE Work Phone: Start: 11-18-2022 Basic metabolic pane l calcium total Ran Mckeon DO Work Phone: Plan of Treatment Date Care Activity Detail Author Start: 12-09-2025 DIABETES SCREEN DIABETES SCREEN [facility] Start: 12-09-2025 Diabetes Screening Diabetes Screening [facility] Start: 11-19-2024 End: 11-19-2024 Patient encounter procedure 11/19/2024 2:00 PM EDT Office Visit Urology [address] [place] [address] Lashanda Albrecht APRN.[facility] [address] [place] [address] 1 year follow up Urology Comment on above: 1 year follow up Start: 11-11-2024 BP Controlled (<130/80) BP Controlled (<130/80) [facility] Start: 05-23-2024 End: 08-22-2024 Bacteria identified in Urine by Culture URINE CULTURE Microbiology Routine Urinary tract infection with hematuria, site unspecified Expected: 05/23/2024, Expires: 08/22/2024 [facility] Work Phone: Comment on above: Expected: 05/23/2024, Expires: Start: 05-13-2024 End: 05-13-2024 Patient encounter procedure 05/13/2024 2:30 PM EST Office Visit Cerebrovascular [address] [place] [address] Apurva Bruno, C S S REPRESENTATIVE.ONLINE MARKETING STRATEGIST [address] [address] 6 month follow up Cerebrovascular Comment on above: 6 month follow up Start: 04-14-2024 BP Controlled (<130/80) BP Controlled (<130/80) [facility] Start: 02-14-2024 BP CONTROLLED (<130/80) BP CONTROLLED (<130/80) [facility] Start: 02-04-2024 BP CONTROLLED (<130/80) BP CONTROLLED (<130/80) [facility] Start: 02-01-2024 BP CONTROLLED (<130/80) BP CONTROLLED (<130/80) [facility] Start: 01-14-2024 BP CONTROLLED (<130/80) BP CONTROLLED (<130/80) [facility] Start: 01-11-2024 BP CONTROLLED (<130/80) BP CONTROLLED (<130/80) [facility] Start: 12-28-2023 BP CONTROLLED (<130/80) BP CONTROLLED (<130/80) [facility] Start: 12-24-2023 BP CONTROLLED (<130/80) BP CONTROLLED (<130/80) [facility] Start: 11-21-2023 End: 11-21-2023 Patient encounter procedure 11/21/2023 1:45 PM EDT Office Visit Urology [address] [place] [address] Lashanda Albrecht, C S S REPRESENTATIVE.ONLINE MARKETING STRATEGIST [address] [place] [address] 6 month f/u Urology Comment on above: 6 month f/u Start: 10-09-2023 Covid-19 Vaccine () Covid-19 Vaccine () [facility] Start: 07-07-2023 Advance Directive Discussion Advance Directive Discussion [facility] Start: 07-07-2023 Behavioral Health Screening Behavioral Health Screening [facility] Start: 04-16-2023 End: 06-16-2023 Bacteria identified in Urine by Culture URINE CULTURE Microbiology Routine Retention of urine Expected: 04/16/2023, Expires: 06/16/2023 [facility] Work Phone: Comment on above: Expected: 04/16/2023, Expires: 3 Start: 03-07-2023 Influenza vaccination [facility] Start: 02-18-2023 End: 04-20-2023 Lipid 1996 panel - Serum or Plasma LIPID PANEL BASIC Lab Routine Hyperlipidemia, unspecified hyperlipidemia type Expected: 02/18/2023, Expires: 04/20/2023 [facility] Work Phone: Comment on above: Expected: 02/18/2023, Expires: 3 Start: 01-10-2023 End: 03-12-2023 Bacteria identified in Urine by Culture URINE CULTURE Microbiology Routine Retention of urine Urinary tract infection with hematuria, site unspecified Expected: 01/10/2023, Expires: 03/12/2023 [facility] Work Phone: Comment on above: Expected: 01/10/2023, Expires: 3 Start: 07-07-2022 ADVANCE DIRECTIVE DISCUSSION ADVANCE DIRECTIVE DISCUSSION [facility] Start: 07-07-2022 DEPRESSION ASSESSMENT DEPRESSION ASSESSMENT [facility] Start: 2018 RSV Vaccine (1 - 1-dose 75+ series) RSV Vaccine (1 - 1-dose 75+ series) [facility] Start: 05-08-2017 Pneumococcal Vaccine: 65+ (2 of 2 - PPSV23 or PCV20) Pneumococcal Vaccine: 65+ (2 of 2 - PPSV23 or PCV20) [facility] Start: 02-08-2008 BONE DENSITY BONE DENSITY [facility] Start: 02-08-2008 Bone Density Screening Bone Density Screening [facility] Start: 02-08-2008 Pneumococcal Vaccine: 65+ (1 - PCV) Pneumococcal Vaccine: 65+ (1 - PCV) [facility] Start: 02-08-2008 PNEUMOCOCCAL: 65+ (1 - PCV) PNEUMOCOCCAL: 65+ (1 - PCV) [facility] Start: 02-08-2008 Screening for osteoporosis Bone Density Screening [facility] Start: 2003 RSV Vaccine (1 - 1-dose 60+ series) RSV Vaccine (1 - 1-dose 60+ series) [facility] Start: 1993 SHINGRIX VACCINE (1 of 2) SHINGRIX VACCINE (1 of 2) [facility] Start: 1962 Urine microalbumin profile [facility] Start: 1961 ANNUAL PCP TEAM CHRONIC DISEASE VISIT ANNUAL PCP TEAM CHRONIC DISEASE VISIT [facility] Start: 1961 Anxiety Screening Anxiety Screening [facility] Start: 1961 BP CONTROLLED (<130/80) BP CONTROLLED (<130/80) [facility] Start: 1961 Depression Screening Depression Screening [facility] Start: 1943 COVID-19 VACCINE (#1) COVID-19 VACCINE (#1) [facility] EVENT MONITOR EVENT MONITOR Ca rdiology Routine Arterial ischemic stroke (HCC) Transient cerebral ischemia, unspecified type Ordered: 12/19/2022 [facility] Work Phone: Comment on above: Ordered: 12/19/2022 Thanh post-voiding residual urine&/bladder cap US MSR POST-VOID RESID URINE Procedures Routine Retention of urine Ordered: 01/10/2023 [facility] Work Phone: Comment on above: Ordered: 01/10/2023 [facility] Immunizations Immunization Date Immunization Notes Care Provider Thelma taylor 05-08-2016 influenza virus vacc ine, unspecified formulation Lashanda Albrecht APRN.ONLINE MARKETING STRATEGIST Work Phone: [facility] Payers Date Payer Category Payer Self-pay 2009 Unknown [id number] 2009 Unknown [id number] 2008 Medicare MEDICARE MEDICAR E A AND B [id number] 2008-Present [phone] [place] [address] Medicare [id number] 2008 Unknown [id number] Unknown [id number] Unknown [id number] Unknown [id number] Unknown [id number] Unknown [id number] Unknown [id number] Unknown [id number] Unknown [id number] Unknown [id number] Unknown [id number] Unknown [id number] Unknown [id number] Unknown [id number] Unknown [id number] Social History Date Type Detail Facility [facility]22 [facility] Start: 11-10-2022 Tobacco use and exposure Smokeless tobacco non-user [facility] Start: 11-10-2022 End: 05-13-2024 Alcohol intake Lifetime non-drinker (finding) [facility] Start: 1945 Sex Assigned At Not on file [facility] Start: 11-13-2022 History SDOH Financial 5 [facility] Start: 11-13-2022 History SDOH Food Worry 1 [facility] Start: 11-13-2022 History SDOH Transpo rt Med 2 [facility] Start: 11-11-2022 End: 01-10-2023 History of Social function [facility] Work Phone: Start: 11-11-2022 End: 01-10-2023 Tobacco use panel [facility] Work Phone: How hard is it for y ou to pay for the very basics like food, housing, medical care, and heating Not hard at all [facility] Work Phone: (I/We) worried wheth er (my/our) food would run out before (I/we) got money to buy more. Never true [facility] Work Phone: In the past 12 month s, was there a time when you were not able to pay the mortgage or rent on time? No [facility] Work Phone: Start: 1945 Sex Assigned At [facility] Work Phone: Start: 09-10-2024 End: 10-26-2024 Sex Female (finding) [facility] Clinical Notes 11-10-2022 to 05-13-2024 Patient InstructionsApurva Bruno APRN.JANICE - 05/13/2024 2:30 PM ESTAddendum Note - Lashanda Albrecht APRN.ONLINE MARKETING STRATEGIST - 11/21/2023 2:31 PM EDLashanda Spencer APRN.ONLINE MARKETING STRATEGIST - 11/21/2023 2:10 PM EDT Note Date & Type Note Facility 05-13-2024 Instructions Apurva Bruno APRN.JANICE - 05/13/2024 3:02 PM EST Images from the original note were not included. Regarding your visit with Nurse Practitioner Apurva Bruno today at the [facility] Cerebrovascular Center we discussed the following: Impression: Acute infarcts left periventricular white matter and left basal ganglia s/p TNK 11/10/22. No significant intracranial atherosclerosis of left anterior circulation per diagnostic cerebral angiogram. 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 Continue Atorvastatin for secondary stroke prevention and LDL goal below 70. Continue monitoring blood pressure for goal below 130/80. Follow up as needed -Regular follow up with primary care doctor for health maintenance -Assist ensuring blood pressure and cholesterol are at goal -Screen and manage diabetes -Lifestyle modification -- Establish goals -Diet -Regular Exercise as discussed -Establish weight goals with primary care doctor -Additional stroke reduction measures and stroke warning signs are listed below. Please do not hesitate to call if you have any questions Apurva Bruno, [facility] Cerebrovascular [place] Nurse Practitioner [place], [place] [address] Office: [phone] Appointments: [phone] Stroke Signs and Symptoms: *Stroke is a medical emergency. Know the warning signs of stroke: Sudden numbness or weakness of the face, arm or leg, especially on one side of the body Sudden confusion, trouble speaking, or understanding Sudden trouble seeing in one eye, or both eyes Sudden trouble walking, dizziness, loss of balance, or coordination Sudden severe headache with no known cause *If you, or someone with you, has one or more of these signs, don't delay! Immediately call 911, or the emergency medical services (EMS) number so an ambulance can be sent for you. Also, check the time so that you will know when the symptoms first appeared. It is very important to take immediate action, every second counts. Medical treatment may be available if action is taken early enough. ~~~~~~~~~~~~~~~~~~~~~~~~~~~~~~~~ ~~~~~~~~~~~~~~~~~~~~~~~~~~~~~~~~ ~~~~~~~~ General Guidelines to Help Reduce Risk of Recurrent Stroke Blood Pressure Management: Blood Pressure reduction is recommended for both prevention of recurrent stroke and prevention of other vascular events in persons who have had an ischemic stroke or TIA and are beyond the first 24 hours. Several lifestyle modifications have been associated with BP reduction and are a reasonable part of a comprehensive antihypertensive therapy. These modifications include: - salt restriction (less than 2 grams per day) - weight loss - consumption of a diet rich in fruits, vegetables, and low-fat dairy products - regular aerobic physical activity - limited alcohol consumption Goal: Prehypertension (BP less than 130/80 mm Hg): - Perform annual BP screening and lifestyle modifications Hypertension: (BP greater than or equal to 130/80 mm Hg) - Combine medications with above lifestyle modifications to reach your goal blood pressure as defined above. - Monitor your blood pressure at home regularly to ensure you are reaching your goals Diabetes Mellitus: - the goal for glycemic control should be individualized based on the risk for adverse events, patient characteristics and preferences, and, for most patients with diabetes, achieving a goal of HbA1c <=7% is recommended to reduce risk for microvascular complications. - treatment of diabetes should include glucose-lowering medications with proven cardiovascular benefit to reduce the risk for future major adverse cardiovascular events (eg, stroke, heart attack) Cholesterol and Lipid Management - Statin (rosuvastatin or atorvastatin) therapy with intensive lipid-lowering effects is recommended to reduce risk of stroke and cardiovascular events among patients with ischemic stroke or TIA who have LDL cholesterol > 100 mg/dL, or evidence of atherosclerosis. - A goal of LDL cholesterol < 70 mg/dL for stroke or TIA patients on lipid lowering therapy is recommended. - Ezetimibe in combination with statin therapy to lower the LDL cholesterol < 70 mg/DL is recommended, if statin therapy alone is insufficient to attain this treatment target. - For patients with ischemic stroke at very high risk, already taking maximally tolerated statin and ezetimibe and still have an LDL cholesterol > 70 mg/dL, it is reasonable to treat with a proprotein convertase subtilisin/kexin type 9 (PCSK9) inhibitor to prevent atherosclerotic cardiovascular or cerebrovascular events. - In patients with ischemic stroke or TIA, with fasting triglycerides 135 to 499 mg/dL and LDL cholesterol of 41 to 100 mg/dL, on moderate- or high-intensity statin therapy, with HbA1c <10%, and with no history of pancreatitis, atrial fibrillation, or severe heart failure, treatment with icosapent ethyl (IPE) 2 g twice a day is reasonable to reduce risk of recurrent stroke Diet: - Reduced sodium and increased potassium intake; DASH-style diet rich in fruits and vegetables (https://www.nhlbi.nih.gov/educa tion/tvkm-hlepxh-kfgt) - Consider Mediterranean diet supplemented with nuts Smoking and Tobacco Use: - Strongly recommend smoking and tobacco use cessation to reduce risk of stroke. - Counseling, nicotine products, and oral smoking cessation medications are effective for helping smokers quit and can be provided if needed. Alcohol Consumption: - Patients with ischemic stroke or TIA who drink greater than or equal to 2 alcoholic drinks a day, should eliminate alcohol use or reduce their consumption of alcohol to less than equal to 1 alcohol drink per day to reduce stroke risk Exercise - In patients with stroke or TIA who are capable of physical activity, engaging in at least moderate-intensity aerobic activity for a minimum of 10 minutes 4 times a week or vigorous-intensity aerobic activity for a minimum of 20 minutes twice a week is indicated to lower the risk of recurrent stroke - In patients with deficits after stroke that impair their ability to exercise, supervision of an exercise program by a health home care scheduler such as a physical therapist or cardiac rehabilitation professional, in addition to routine rehabilitation, can be beneficial for secondary stroke prevention - In individuals with stroke or TIA who sit for long periods of uninterrupted time during the day, it may be reasonable to recommend breaking up sedentary time with intervals as short as 3 minutes of standing or light exercise every 30 minutes for their cardiovascular health Adapted from the [place] [employer]/[place] St[employer] Association: 2020 Guideline for the Prevention of Stroke in Patients With Stroke and Transient Ischemic Attack documented in this encounter [facility] 05-13-2024 History of Presen t illness Narrative CEREBROVASCULAR CENTER Established Visit Consultation is requested by: No referring provider defined for this encounter. PCP: Evin Garcia ([facility]) [address] [place] [address] CEREBROVASCULAR HISTORY Myrna Saravia is a 77 year old female presenting for hospital discharge follow up. Admitted to [facility] 11/10-11/16/22. From discharge summary: 77-year-old female presented [facility] for acute onset of right upper extremity and right lower extremity weakness. Then was called and she was presented to [facility] where telestroke was called. She had a negative CT scan and the decision was made to give TNK by the stroke neurologist. She was then admitted to the intensive care unit post thrombolytics. Her CTA showed severe focal stenosis of the inferior division of the M2 segment right MCA likely due to noncalcified plaque and moderate to severe focal stenosis of the mid add SPECT of the basilar artery likely due to plaque. MRI showed acute infarct within left periventricular white matter and left basal ganglia. No evidence of associated intracranial hemorrhage. Echo showed EF 69%, grade 1 diastolic dysfunction. Neuro interventional radiology was asked to see her and she underwent a diagnostic cerebral angiogram. There was concern for worsening neuro deficits and patient underwent CT brain x [address] brain was stable and EEG without seizure. 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 She was also started on amlodipine and hydralazine for blood pressure control. She had LE ultrasound that were negative for proximal dvt. She also had R upper extremity ultrasound due to swelling that was also negative for dvt. Patient developed a rash to R arm after the ultrasound gel and tape around her IV sites. This will need monitored. She was seen by ST who recommended regular Consistency, thin Liquids IDDSI Level 0, medications crushed in puree (pudding/applesauce). PT and OT recommended acute rehab and she was discharged once precert obtained. She will need to follow up with her PCP and neurology. Reason for Visit: stroke Date of Last Event: 11/10/2022 Antiplatelets/Anticoagulants: Aspirin Statins: Atorvastatin Residual Deficits: Right-sided weakness and Aphasia Current PT/OT/ST: None Current Living Situation: Extended care Current use of a mobility aid for walking/getting around: Wheelchair/Scooter Office Visit 12/19/22 -presents with her daughter Brooklynn -right sided weakness, aphasia improving -discharged from acute rehab and now in SNF -PT, OT, speech in facility -have not received cardiac event monitor -started Remeron in loco steve for mood (crying, bouts of anger) - had been on it for about 3 weeks, but then stopped it a few days ago due to urinary retention and incontinence to see if it would improve. Did not notice any benefit for mood yet. -they want to know if this is a good mood medication for her given her age -last 3 days has had incontinence and has needed straight cath -seeing Urology tomorrow -noting some episodes of paranoia, thinking people are doing bad things to her -her sleep schedule has been very inconsistent - she is up a lot of the night and naps during the day so likely not getting enough sleep -aspirin 81mg + plavix 75mg x 90 days - no bleeding complications -lipitor 40mg - no myalgias or other side effects -BP 110/56 -no new stroke-like symptoms -they were told in the hospital that they need to see Dr. Lutz as well, no appt scheduled yet Office Visit 02/1023 -presents with her daughter Brooklynn -in different alf facility, moved about a week ago- [facility] in [place] -aphasia and dysarthria improving -she still cannot move her right arm but her right leg is gaining strength, she can now lift it in the air -able to take some steps with the chely-cane -30 day event monitor - NSR, no afib -aspirin 81mg + plavix 75mg - no bleeding complications -lipitor 40mg - no myalgias or other side effects - LDL 38 on 02/10 -BP 105/54 -no new stroke-like symptoms -her mood and sleep have been better overall, still on remeron 15mg -still with some bowel and bladder incontinence, following with urology - had untreated UTI, now recommending timed voids Office Visit 05/14/23 -presents for follow up with her daughter Brooklynn -denies any new symptoms or clinical events -aphasia and dysarthria improving -she still cannot move her right arm but her right leg continues to gain strength -also now has sensation below the knee in her right leg, and the right side of her face -speech is a little better -getting fitted for a brace for her right leg because her foot turns outward when she walks -her leg sometimes gives out under her which makes her scared to walk around -once the brace comes in she feels that she will be able to do more therapy -aspirin 81mg -lipitor 40mg -BP 124/69 -no new stroke-like symptoms Office Visit 11/12/23 -presents for follow up with her daughter, Brooklynn -denies any new symptoms or clinical events -she still cannot move her right arm but her right leg continues to gain strength, can hold it in the air -she has sensation in her right leg and right side of face -they are unclear if she is still getting any PT or other therapy at [facility] where she's living -hasn't received her brace from [facility], though did get fitted for it before our last visit -her daughter reports that sometimes the patient doesn't want to leave the room, doesn't want to go outside, will refuse to have her friends visit even though they offer -she gets intermittently tearful and her daughter states it has been that way since her father a while ago -a few weeks ago was getting angry, tried to leave the facility. Didn't have a UTI. This has not recurred -she currently takes mirtazapine 15mg at bedtime, which was started shortly after her stroke when she would be tearful all the time -aspirin 81mg -lipitor 40mg -BP 122/49 Office Visit 05/13/24 -presents for follow up with her daughterBrooklynn -denies any new symptoms or clinical events -she is now 18 months post-stroke -still with aphasia, short term memory difficulty -has not been getting speech therapy and feels like her speech has regressed a bit without it -she still cannot move her right arm but her right leg has gained strength, can hold it in the air -she has sensation in her right leg and right side of face -using sit to stand with lift to transfer -aspirin 81mg -lipitor 40mg PAST MEDICAL HISTORY Diagnosis Date Hypertension Intracranial vascular stenosis No past surgical history on file. No family history on file. Social History Tobacco Use Smoking status: Never Smokeless tobacco: Never Substance Use Topics Alcohol use: Never Drug use: Never MEDICATIONS Current Outpatient Medications Medication Sig guaiFENesin (ROBITUSSIN) 100 mg/5 mL syrup Take 200 mg by mouth every 4 hours as needed. potassium chloride ER (KLOR-CON M10) 10 mEq tablet Take 10 mEq by mouth two times a day. bisacodyl (DULCOLAX, BISACODYL,) 10 mg supp 10 mg by RECTAL route once daily as needed for constipation. SACCHAROMYCES BOULARDII-FOS ORAL Take by mouth. chlorthalidone (HYGROTON) 25 mg tablet polyethylene glycol 3350 17 gram/dose powder Take 17 g by mouth at bedtime as needed. acetaminophen (TYLENOL) 325 mg tablet Take 650 mg by mouth every 6 hours as needed. losartan (COZAAR) 50 mg tablet Take 50 mg by mouth once daily. magnesium hydroxide (EX-LAX MILK OF MAGNESIA ORAL) Take by mouth. mirtazapine (REMERON) 15 mg tablet Take 15 mg by mouth daily at bedtime. aspirin 81 mg chewable tablet 1 tablet by ORAL/FEEDING TUBE route once daily. atorvastatin (LIPITOR) 40 mg tablet 1 tablet by ORAL/FEEDING TUBE route daily at bedtime. MUCUS-CHEST CONGESTION 100 mg/5 mL syrup [employer] HEALTH 10 billion cell -200 mg capsule lactobacillus rhamnosus (CULTURELLE) 10 billion cell capsule Take 1 capsule by mouth once daily. No current facility-administered medications for this visit. ALLERGIES ALLERGIES Allergen Reactions Amoxicillin Other: See Comments Makes her lethargic Ciprofloxacin Mental Status Change Sulfa (Sulfonamide * Mental Status Change PHYSICAL EXAMINATION BP 146/83 Pulse 68 Ht 162.6 cm (5' 4) Wt 80.3 kg (177 lb) BMI 30.38 kg/m General: Well-developed, well-nourished, in no acute distress. HEENT: Normocephalic, atraumatic. Sclerae anicteric. Oropharynx clear. Neck: No JVD Heart: Skin well-perfused. Lungs: Breathing comfortably on room air. Extremities: RLE mild edema. No cyanosis or clubbing. Skin: No rash or ecchymoses. Neurological: Awake, alert, oriented to person, place, and time. Mild-moderate aphasia, dysarthria. Comprehension intact. Good attention and insight into illness. Cranial Nerves: Extraocular movements intact without nystagmus. Visual falcon full. Facial movements normal and symmetric. Motor: Normal bulk and tone. Unable to move right arm. She can lift up her right leg and provide some resistance against gravity. Unable to dorsiflex. Otherwise strength 5/5 throughout. No tremor. Sensation: Intact light touch Gait: deferred LABS Cholesterol: Cholesterol, Total (mg/dL) Date Value 11/11/2022 163 LDL Cholesterol (mg/dL) Date Value 11/11/2022 96 HDL Cholesterol (mg/dL) Date Value 11/11/2022 54 Triglyceride (mg/dL) Date Value 11/11/2022 65 Diabetes: Hemoglobin A1C (%) Date Value 11/10/2022 5.4 IMAGING CTH 11/10/22 IMPRESSION: No acute findings. No evidence of acute infarction, intracranial hemorrhage or intracranial mass lesion CTA head and neck 11/10/22 IMPRESSION: No evidence of acute large vessel occlusion. Severe focal stenosis of the inferior division of the M2 segment right MCA likely secondary to noncalcified atherosclerotic plaque. Moderate to severe focal stenosis of the mid aspect of the basilar artery, likely secondary to atherosclerotic plaque MRI brain 11/11/22 IMPRESSION: Small acute infarct within left periventricular white matter and left basal ganglia. No evidence of associated intracranial hemorrhage. Susceptibility signal associated with posterior left periventricular white matter with associated T2 hypointensity. No corresponding hyperdense hemorrhage in CT examination. While this most likely represents cavernoma or chronic hemorrhage, possibility of other hemorrhagic lesions should be excluded with postcontrast MRI brain imaging. Echo 11/11/22 CONCLUSIONS: - Technically difficult exam due to suboptimal positioning. - Exam indication: Stroke - The left ventricle is normal in size. There is mild left ventricular hypertrophy. Left ventricular systolic function is normal. EF = 69 5% (2D biplane) Grade I left ventricular diastolic dysfunction. - The right ventricle is normal in size. Right ventricular systolic function is normal. - There are no significant valvular abnormalities. - The patient has not had a prior CC echocardiographic exam for comparison. DSA 11/12/22 FINDINGS: Mid-basilar stenosis approximately 50% with a residual lumen of 1.1 mm, with no significant flow limitation. Right angular M3 branch 60-65% stenosis over a 5 mm segment at its origin, with minimal flow delay No significant intracranial atherosclerotic stenosis of the left anterior circulation Mild atherosclerotic irregularities of bilateral carotid origins without significant stenosis Patient Entered Questionnaires PROMIS/NeuroQoL Score Percentiles Percentiles provide an indication of how a patient's score ranks in relation to the [place] general population. > 31st percentile is within normal limits or better * < 31st percentile is at least SD worse than population, which may be clinically relevant < 16th percentile is at least 1 SD worse than population and warrants attention Depression Screening: PHQ-9 Scores: PHQ-9 Self-Harm (Item 9) Response: 0 - 9 No to Mild depression 0 - Not at all 10 - 14 Moderate depression 1 - Several Days > 15 Severe depression 2 - More than half the days 3 - Nearly every day Stroke Mechanism and Scales Ischemic or TIA: Ischemic Stroke TOAST Mechanism (CCF-MODIFIED): Embolic Stroke of Unknown Source Modified [place] Score: Score: 4 NIH Stroke Scale: LOC: 0 LOC Questions: 0 LOC Commands: 0 LOC Normal Gaze: 0 Visual Falcon: 0 Facial Palsy: 0 Motor Left Arm: 0 Motor Right Arm: 4 Motor Left Le Motor Right Le Limb Ataxia: 0 Sensory: 0 Language: 2 Dysarthria: 1 Extinction/Neglect: 0 Total Daily NIHSS: 9 Cerebrovascular Disease w/o Stroke Event: Intracranial Stenosis IMPRESSION Acute infarcts left periventricular white matter and left basal ganglia s/p TNK 11/10/22. No significant intracranial atherosclerosis of left anterior circulation per diagnostic cerebral angiogram. 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 They decline at this time. She doesn't want to do any further testing. Continue Aspirin daily for secondary stroke prevention. Continue Atorvastatin for secondary stroke prevention and LDL goal below 70. Continue monitoring blood pressure for goal below 130/80. Follow up as needed Medical Decision Making: Medical Decision Making Level: 1 - N/A I spent a total of 38 minutes on the date of service which included preparing to see the patient, [id number] patient care, completing clinical documentation, performing a medically appropriate examination, counseling and educating the patient/family/caregiver, and care coordination (not separately reported) SIGNATURE Apurva rBuno APRN.CNP CC No referring provider defined for this encounter. Evin Almazan) [address] [place] [address] documented in this encounter [facility] 05-13-2024 Note HNO ID: [id number] Author: APURVA BRUNO APRN.CNP Service: ? Author Type: Nurse Practitioner Type: Progress Notes Filed: 05/14/2024 11:01 Note Text: [facility]EREBROVASCULAR CENTER Established Visit Consultation is requested by: No referring provider defined for this encounter. PCP: Evin Garcia (Dorothy) [address] [place] [address] CEREBROVASCULAR HISTORY Myrna Saravia is a 77 year old female presenting for hospital discharge follow up. Admitted to [facility] 11/10-11/16/22. From discharge summary: 77-year-old female presented [facility] for acute onset of right upper extremity and right lower extremity weakness. Then was called and she was presented to [facility] where telestroke was called. She had a negative CT scan and the decision was made to give TNK by the stroke neurologist. She was then admitted to the intensive care unit post thrombolytics. Her CTA showed severe focal stenosis of the inferior division of the M2 segment right MCA likely due to noncalcified plaque and moderate to severe focal stenosis of the mid add SPECT of the basilar artery likely due to plaque. MRI showed acute infarct within left periventricular white matter and left basal ganglia. No evidence of associated intracranial hemorrhage. Echo showed EF 69%, grade 1 diastolic dysfunction. Neuro interventional radiology was asked to see her and she underwent a diagnostic cerebral angiogram. There was concern for worsening neuro deficits and patient underwent CT brain x [address] brain was stable and EEG without seizure. 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 She was also started on amlodipine and hydralazine for blood pressure control. She had LE ultrasound that were negative for proximal dvt. She also had R upper extremity ultrasound due to swelling that was also negative for dvt. Patient developed a rash to R arm after the ultrasound gel and tape around her IV sites. This will need monitored. She was seen by ST who recommended regular Consistency, thin Liquids IDDSI Level 0, medications crushed in puree (pudding/applesauce). PT and OT recommended acute rehab and she was discharged once precert obtained. She will need to follow up with her PCP and neurology. Reason for Visit: stroke Date of Last Event: 11/10/2022 Antiplatelets/Anticoagulants: Aspirin Statins: Atorvastatin Residual Deficits: Right-sided weakness and Aphasia Current PT/OT/ST: None Current Living Situation: Extended care Current use of a mobility aid for walking/getting around: Wheelchair/Scooter Office Visit 12/19/22 -presents with her daughter Brooklynn -right sided weakness, aphasia improving -discharged from acute rehab and now in SNF -PT, OT, speech in facility -have not received cardiac event monitor -started Remeron in [facility] for mood (crying, bouts of anger) - had been on it for about 3 weeks, but then stopped it a few days ago due to urinary retention and incontinence to see if it would improve. Did not notice any benefit for mood yet. -they want to know if this is a good mood medication for her given her age -last 3 days has had incontinence and has needed straight cath -seeing Urology tomorrow -noting some episodes of paranoia, thinking people are doing bad things to her -her sleep schedule has been very inconsistent - she is up a lot of the night and naps during the day so likely not getting enough sleep -aspirin 81mg + plavix 75mg x 90 days - no bleeding complications -lipitor 40mg - no myalgias or other side effects -BP 110/56 -no new stroke-like symptoms -they were told in the hospital that they need to see Dr. Lutz as well, no appt scheduled yet Office Visit 02/1023 -presents with her daughter Brooklynn -in different alf facility, moved about a week ago- [facility] in [place] -aphasia and dysarthria improving -she still cannot move her right arm but her right leg is gaining strength, she can now lift it in the air -able to take some steps with the chely-cane -30 day event monitor - NSR, no afib -aspirin 81mg + plavix 75mg - no bleeding complications -lipitor 40mg - no myalgias or other side effects - LDL 38 on 02/10 -BP 105/54 -no new stroke-like symptoms -her mood and sleep have been better overall, still on remeron 15mg -still with some bowel and bladder incontinence, following with urology - had untreated UTI, now recommending timed voids Office Visit 05/14/23 -presents for follow up with her daughter Brooklynn -denies any new symptoms or clinical events -aphasia and dysarthria improving -she still cannot move her right arm but her right leg continues to gain strength -also now has sensation below the knee in her right leg, and the right (more content not included)... [facility] 11-21-2023 Note HNO ID: [id number] Author: LASHANDA ALBRECHT APRN.ONLINE MARKETING STRATEGIST Service: ? Author Type: Nurse Practitioner Type: Progress Notes Filed: 11/21/2023 14:31 Note Text: ESTABLISHED PATIENT OFFICE VISIT HISTORY OF PRESENT ILLNESS Myrna Saravia is a 78 year old female who presents today in f/u. 04/14/23: Patient with a h/o urinary retention, UTI, CVA. Patient presents today in f/u. Patient now at [facility]. Recent UTI on 04/02/23. Finished a course of macrobid on 04/10/23. Patient's daughter feels her UTI has not resolved. She continues to have malodorous urine. No fever or chills. No gross hematuria. No dysuria. Still difficult for patient to feel her bladder. Does not have the urge to void most of the time. She is now being taken to the bathroom most of the time during the day at the [facility]. Mostly has incontinence into her depends. Today's note: Patient with a h/o CVA, urinary retention, UTI. Patient is still residing at [facility]. Her last UTI was on 04/02/23. Recent micro UA done on 11/07/23 was negative. Patient denies any gross hematuria. No dysuria. No fever or chills. Had a recent fall. Her daughter states that she has been angry lately, thought she may have a UTI, but UA negative. Voiding into her depends. Gets up to the bedside commode at times. LAB RESULTS Creatinine Date Value Ref Range Status 12/09/2022 0.99 (H) 0.58 - 0.96 mg/dL Final No results found for: PSA Color (no units) Date Value 12/03/2022 Yellow Clarity (no units) Date Value 12/03/2022 Clear Glucose, Urine (no units) Date Value 12/03/2022 Negative Bilirubin, Urine (no units) Date Value 12/03/2022 Negative Ketones, Urine (no units) Date Value 12/03/2022 Negative Specific [place], Ur (no units) Date Value 12/03/2022 >=1.030 Hemoglobin/Blood,Ur (no units) Date Value 12/03/2022 Negative pH, Urine (no units) Date Value 12/03/2022 6.0 Protein, Urine (no units) Date Value 12/03/2022 Negative Urobilinogen (no units) Date Value 12/03/2022 0.2 EU/dL Nitrites (no units) Date Value 12/03/2022 Negative Leuk Esterase (no units) Date Value 12/03/2022 Negative MEDICATIONS: guaiFENesin (ROBITUSSIN) 100 mg/5 mL syrup Take 200 mg by mouth every 4 hours as needed. potassium chloride ER (KLOR-CON M10) 10 mEq tablet Take 10 mEq by mouth two times a day. bisacodyl (DULCOLAX, BISACODYL,) 10 mg supp 10 mg by RECTAL route once daily as needed for constipation. SACCHAROMYCES BOULARDII-FOS ORAL Take by mouth. MUCUS-CHEST CONGESTION 100 mg/5 mL syrup chlorthalidone (HYGROTON) 25 mg tablet [facility] [employer] [facility] 10 billion cell -200 mg capsule polyethylene glycol 3350 17 gram/dose powder Take 17 g by mouth at bedtime as needed. acetaminophen (TYLENOL) 325 mg tablet Take 650 mg by mouth every 6 hours as needed. losartan (COZAAR) 50 mg tablet Take 50 mg by mouth once daily. magnesium hydroxide (EX-LAX MILK OF MAGNESIA ORAL) Take by mouth. mirtazapine (REMERON) 15 mg tablet Take 15 mg by mouth daily at bedtime. aspirin 81 mg chewable tablet 1 tablet by ORAL/FEEDING TUBE route once daily. atorvastatin (LIPITOR) 40 mg tablet 1 tablet by ORAL/FEEDING TUBE route daily at bedtime. lactobacillus rhamnosus (CULTURELLE) 10 billion cell capsule Take 1 capsule by mouth once daily. (Patient not taking: Reported on 11/21/2023) REVIEW OF SYSTEMS CONSTITUTIONAL: Patient reports no recent fever or weight loss CARDIOVASCULAR: No chest pain, palpitations or ankle edema. RESPIRATORY: No wheezing, frequent cough or shortness of breath GENITOURINARY: See HPI HISTORIES PAST MEDICAL HISTORY Diagnosis Date Hypertension Intracranial vascular stenosis History reviewed. No pertinent family history. History reviewed. No pertinent surgical history. SOCIAL HISTORY Social History Tobacco Use Smoking status: Never Smokeless tobacco: Never Substance Use Topics Alcohol use: Never Drug use: Never PHYSICAL EXAMINATION General appearance: Well appearing, alert, in no acute distress, well-hydrated, well nourished.. BACK: not examined. MUSCULOSKELETAL: Negative for joint pain or swelling. RESPIRATORY: Normal respiratory effort. SKIN: Normal color, no rash, no lesions.. ASSESSMENT/PLAN: 1. Retention of urine - ICD9: 788.20, ICD10: R33.9 2. Urinary tract infection with hematuria, site unspecified - ICD9: 599.0, 599.70, ICD10: N39.0, R31.9 -ECF to check a urine culture if patient is symptomatic. -continue probiotics. -urine culture 6 months. -f/u in 1 year or sooner if any issues. Lashanda Albrecht APRN.ONLINE MARKETING STRATEGIST [facility] 11-21-2023 Note Addended by: LASHANDA MITTAL on: 11/21/2023 02:31 PM Modules accepted: Orders [facility] 11-21-2023 Miscellaneous Notes Addended by: LASHANDA ALBRECHT on: 11/21/2023 02:31 PM Modules accepted: Orders documented in this encounter [facility] 11-21-2023 History of Presen t illness Narrative ESTABLISHED PATIENT OFFICE VISIT HISTORY OF PRESENT ILLNESS Myrna Saravia is a 78 year old female who presents today in f/u. 04/14/23: Patient with a h/o urinary retention, UTI, CVA. Patient presents today in f/u. Patient now at [facility]. Recent UTI on 04/02/23. Finished a course of macrobid on 04/10/23. Patient's daughter feels her UTI has not resolved. She continues to have malodorous urine. No fever or chills. No gross hematuria. No dysuria. Still difficult for patient to feel her bladder. Does not have the urge to void most of the time. She is now being taken to the bathroom most of the time during the day at the [facility]. Mostly has incontinence into her depends. Today's note: Patient with a h/o CVA, urinary retention, UTI. Patient is still residing at [facility]. Her last UTI was on 04/02/23. Recent micro UA done on 11/07/23 was negative. Patient denies any gross hematuria. No dysuria. No fever or chills. Had a recent fall. Her daughter states that she has been angry lately, thought she may have a UTI, but UA negative. Voiding into her depends. Gets up to the bedside commode at times. LAB RESULTS Creatinine Date Value Ref Range Status 12/09/2022 0.99 (H) 0.58 - 0.96 mg/dL Final No results found for: PSA Color (no units) Date Value 12/03/2022 Yellow Clarity (no units) Date Value 12/03/2022 Clear Glucose, Urine (no units) Date Value 12/03/2022 Negative Bilirubin, Urine (no units) Date Value 12/03/2022 Negative Ketones, Urine (no units) Date Value 12/03/2022 Negative Specific [place], Ur (no units) Date Value 12/03/2022 >=1.030 Hemoglobin/Blood,Ur (no units) Date Value 12/03/2022 Negative pH, Urine (no units) Date Value 12/03/2022 6.0 Protein, Urine (no units) Date Value 12/03/2022 Negative Urobilinogen (no units) Date Value 12/03/2022 0.2 EU/dL Nitrites (no units) Date Value 12/03/2022 Negative Leuk Esterase (no units) Date Value 12/03/2022 Negative MEDICATIONS: guaiFENesin (ROBITUSSIN) 100 mg/5 mL syrup Take 200 mg by mouth every 4 hours as needed. potassium chloride ER (KLOR-CON M10) 10 mEq tablet Take 10 mEq by mouth two times a day. bisacodyl (DULCOLAX, BISACODYL,) 10 mg supp 10 mg by RECTAL route once daily as needed for constipation. SACCHAROMYCES BOULARDII-FOS ORAL Take by mouth. MUCUS-CHEST CONGESTION 100 mg/5 mL syrup chlorthalidone (HYGROTON) 25 mg tablet [employer] 10 billion cell -200 mg capsule polyethylene glycol 3350 17 gram/dose powder Take 17 g by mouth at bedtime as needed. acetaminophen (TYLENOL) 325 mg tablet Take 650 mg by mouth every 6 hours as needed. losartan (COZAAR) 50 mg tablet Take 50 mg by mouth once daily. magnesium hydroxide (EX-LAX MILK OF MAGNESIA ORAL) Take by mouth. mirtazapine (REMERON) 15 mg tablet Take 15 mg by mouth daily at bedtime. aspirin 81 mg chewable tablet 1 tablet by ORAL/FEEDING TUBE route once daily. atorvastatin (LIPITOR) 40 mg tablet 1 tablet by ORAL/FEEDING TUBE route daily at bedtime. lactobacillus rhamnosus ([employer]) 10 billion cell capsule Take 1 capsule by mouth once daily. (Patient not taking: Reported on 11/21/2023) REVIEW OF SYSTEMS CONSTITUTIONAL: Patient reports no recent fever or weight loss CARDIOVASCULAR: No chest pain, palpitations or ankle edema. RESPIRATORY: No wheezing, frequent cough or shortness of breath GENITOURINARY: See HPI HISTORIES PAST MEDICAL HISTORY Diagnosis Date Hypertension Intracranial vascular stenosis History reviewed. No pertinent family history. History reviewed. No pertinent surgical history. SOCIAL HISTORY Social History Tobacco Use Smoking status: Never Smokeless tobacco: Never Substance Use Topics Alcohol use: Never Drug use: Never PHYSICAL EXAMINATION General appearance: Well appearing, alert, in no acute distress, well-hydrated, well nourished.. BACK: not examined. MUSCULOSKELETAL: Negative for joint pain or swelling. RESPIRATORY: Normal respiratory effort. SKIN: Normal color, no rash, no lesions.. ASSESSMENT/PLAN: 1. Retention of urine - ICD9: 788.20, ICD10: R33.9 2. Urinary tract infection with hematuria, site unspecified - ICD9: 599.0, 599.70, ICD10: N39.0, R31.9 -ECF to check a urine culture if patient is symptomatic. -continue probiotics. -urine culture 6 months. -f/u in 1 year or sooner if any issues. Lashanda Albrecht APRN.ONLINE MARKETING STRATEGIST documented in this encounter [facility] 11-12-2023 Instructions Apurva Bruno APRN.CNP - 11/12/2023 1:28 PM EDT Images from the original note were not included. Regarding your visit with Nurse Practitioner Apurva Bruno today at the [facility] Cerebrovascular Center we discussed the following: Impression: Acute infarcts left periventricular white matter and left basal ganglia s/p TNK 11/10/22. No significant intracranial atherosclerosis of left anterior circulation per diagnostic cerebral angiogram. 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 Patient declines, let me know if you change your mind Continue Aspirin daily for secondary stroke prevention. Continue Atorvastatin for secondary stroke prevention and LDL goal below 70. Continue monitoring blood pressure for goal below 130/80. Follow up in 6 months, or sooner if needed. Can also postpone if doing well and push it to a year -Regular follow up with primary care doctor for health maintenance -Assist ensuring blood pressure and cholesterol are at goal -Screen and manage diabetes -Lifestyle modification -- Establish goals -Diet -Regular Exercise as discussed -Establish weight goals with primary care doctor -Additional stroke reduction measures and stroke warning signs are listed below. Please do not hesitate to call if you have any questions Apurva Bruno [facility] Cerebrovascular [place] Nurse Practitioner [place], [place] [address] Office: [phone] Appointments: [phone] Stroke Signs and Symptoms: *Stroke is a medical emergency. Know the warning signs of stroke: Sudden numbness or weakness of the face, arm or leg, especially on one side of the body Sudden confusion, trouble speaking, or understanding Sudden trouble seeing in one eye, or both eyes Sudden trouble walking, dizziness, loss of balance, or coordination Sudden severe headache with no known cause *If you, or someone with you, has one or more of these signs, don't delay! Immediately call 911, or the emergency medical services (EMS) number so an ambulance can be sent for you. Also, check the time so that you will know when the symptoms first appeared. It is very important to take immediate action, every second counts. Medical treatment may be available if action is taken early enough. ~~~~~~~~~~~~~~~~~~~~~~~~~~~~~~~~ ~~~~~~~~~~~~~~~~~~~~~~~~~~~~~~~~ ~~~~~~~~ General Guidelines to Help Reduce Risk of Recurrent Stroke Blood Pressure -Blood Pressure reduction is recommended for both prevention of recurrent stroke and prevention of other vascular events in persons who have had an ischemic stroke or transient ischemic attack (TIA) and are beyond the first 24 hours. -Several lifestyle modifications have been associated with BP reduction and are a reasonable part of a comprehensive antihypertensive therapy -These modifications include: - salt restriction - weight loss - consumption of a diet rich in fruits, vegetables, and low-fat dairy products - regular aerobic physical activity - limited alcohol consumption Goal: Prehypertension (systolic BP of 120-139 mm Hg or diastolic BP of 80-89 mm Hg): Perform annual BP screening and lifestyle modifications Hypertension: Combine medications with above lifestyle modifications to reach your goal blood pressure as defined above. Monitor your blood pressure at home regularly to ensure you are reaching your goals Diabetes - Maintain good control of diabetes if you have it by working with your primary care physician to adjust medications and lifestyle (diet) modification Cholesterol and Lipid Management - Statin therapy with intensive lipid-lowering effects is recommended to reduce risk of stroke and cardiovascular events among patients with ischemic stroke or TIA who have evidence of atherosclerosis Diet - Limit carbohydrates, saturated and trans fats, sodium, sweets, and red meat - Consume fruits, vegetables, whole grains, low-fat dairy products, skinless poultry, nuts and legumes - Consider the DASH (Dietary Approaches to Stop Hypertension) eating plan - more information: https://www.heart.org/en/healthy -living/healthy-eating/eat-smart /nutrition-basics/czg-uivc-eby-l ifestyle-recommendations Smoking and Tobacco Use (including e-cigarettes) - Strongly recommend against smoking and tobacco use - Counseling, nicotine products, and oral smoking cessation medications are effective for helping smokers quit Alcohol Consumption - Heavy drinkers should eliminate or reduce their consumption of alcohol. - Persons who continue drinking the following may be reasonable: - less than or equal to 2 drinks/day for men - less than or equal to 1 drink/day for non women Exercise - If capable of engaging in physical activity, at least 40 minutes of moderate to vigorous intensity physical exercise, typically defined as vigorous activity sufficient to break a sweat or noticeably raise heart rate, 3-4 days a week (eg, walking briskly, using an exercise bicycle) may be considered to reduce the risk factors and comorbid conditions that increase the likelihood of recurrent stroke - If disability after ischemic stroke, supervision by a healthcare professional, such as a physical therapist or cardiac rehabilitation professional, at least on initiation of an exercise regimen, may be considered Adopted from the [place] [employer] Attack : A Guideline for Healthcare Professionals From the [place] [employer] Guidelines for the Prevention of Stroke in Patients With Stroke or Transient Ischemic - 2014 documented in this encounter [facility] 11-12-2023 History of Presen t illness Narrative CEREBROVASCULAR CENTER Established Visit Consultation is requested by: No referring provider defined for this encounter. PCP: Evin Garcia ([facility]) [place] [address] CEREBROVASCULAR HISTORY Myrna Saravia is a 77 year old female presenting for hospital discharge follow up. Admitted to [facility] 11/10-11/16/22. From discharge summary: 77-year-old female presented [facility] for acute onset of right upper extremity and right lower extremity weakness. Then was called and she was presented to [facility] where telestroke was called. She had a negative CT scan and the decision was made to give TNK by the stroke neurologist. She was then admitted to the intensive care unit post thrombolytics. Her CTA showed severe focal stenosis of the inferior division of the M2 segment right MCA likely due to noncalcified plaque and moderate to severe focal stenosis of the mid add SPECT of the basilar artery likely due to plaque. MRI showed acute infarct within left periventricular white matter and left basal ganglia. No evidence of associated intracranial hemorrhage. Echo showed EF 69%, grade 1 diastolic dysfunction. Neuro interventional radiology was asked to see her and she underwent a diagnostic cerebral angiogram. There was concern for worsening neuro deficits and patient underwent CT brain x [address] brain was stable and EEG without seizure. 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 She was also started on amlodipine and hydralazine for blood pressure control. She had LE ultrasound that were negative for proximal dvt. She also had R upper extremity ultrasound due to swelling that was also negative for dvt. Patient developed a rash to R arm after the ultrasound gel and tape around her IV sites. This will need monitored. She was seen by ST who recommended regular Consistency, thin Liquids IDDSI Level 0, medications crushed in puree (pudding/applesauce). PT and OT recommended acute rehab and she was discharged once precert obtained. She will need to follow up with her PCP and neurology. Reason for Visit: stroke Date of Last Event: 11/10/2022 Antiplatelets/Anticoagulants: Aspirin Statins: Atorvastatin Side effects: No Refills needed: No Residual Deficits: Right-sided weakness and Aphasia Current PT/OT/ST: Physical therapy at home, Occupational therapy at home and Speech therapy at home Initial Discharge Disposition: IRF Current Living Situation: Extended care Current use of a mobility aid for walking/getting around: Wheelchair/Scooter Do you have any planned upcoming surgeries or dental procedures? No Office Visit 12/19/22 -presents with her daughter Brooklynn -right sided weakness, aphasia improving -discharged from acute rehab and now in SNF -PT, OT, speech in facility -have not received cardiac event monitor -started Remeron in [facility] for mood (crying, bouts of anger) - had been on it for about 3 weeks, but then stopped it a few days ago due to urinary retention and incontinence to see if it would improve. Did not notice any benefit for mood yet. -they want to know if this is a good mood medication for her given her age -last 3 days has had incontinence and has needed straight cath -seeing Urology tomorrow -noting some episodes of paranoia, thinking people are doing bad things to her -her sleep schedule has been very inconsistent - she is up a lot of the night and naps during the day so likely not getting enough sleep -aspirin 81mg + plavix 75mg x 90 days - no bleeding complications -lipitor 40mg - no myalgias or other side effects -BP 110/56 -no new stroke-like symptoms -they were told in the hospital that they need to see Dr. Lutz as well, no appt scheduled yet Office Visit 02/1023 -presents with her daughter Brooklynn -in different alf facility, moved about a week ago- [facility] in [place] -aphasia and dysarthria improving -she still cannot move her right arm but her right leg is gaining strength, she can now lift it in the air -able to take some steps with the chely-cane -30 day event monitor - NSR, no afib -aspirin 81mg + plavix 75mg - no bleeding complications -lipitor 40mg - no myalgias or other side effects - LDL 38 on 02/10 -BP 105/54 -no new stroke-like symptoms -her mood and sleep have been better overall, still on remeron 15mg -still with some bowel and bladder incontinence, following with urology - had untreated UTI, now recommending timed voids Office Visit 05/14/23 -presents for follow up with her daughter Brooklynn -denies any new symptoms or clinical events -aphasia and dysarthria improving -she still cannot move her right arm but her right leg continues to gain strength -also now has sensation below the knee in her right leg, and the right side of her face -speech is a little better -getting fitted for a brace for her right leg because her foot turns outward when she walks -her leg sometimes gives out under her which makes her scared to walk around -once the brace comes in she feels that she will be able to do more therapy -aspirin 81mg -lipitor 40mg -BP 124/69 -no new stroke-like symptoms Office Visit 11/12/23 -presents for follow up with her daughter, Brooklynn -denies any new symptoms or clinical events -she still cannot move her right arm but her right leg continues to gain strength, can hold it in the air -she has sensation in her right leg and right side of face -they are unclear if she is still getting any PT or other therapy at [facility] where she's living -hasn't received her brace from [facility], though did get fitted for it before our last visit -her daughter reports that sometimes the patient doesn't want to leave the room, doesn't want to go outside, will refuse to have her friends visit even though they offer -she gets intermittently tearful and her daughter states it has been that way since her father a while ago -a few weeks ago was getting angry, tried to leave the facility. Didn't have a UTI. This has not recurred -she currently takes mirtazapine 15mg at bedtime, which was started shortly after her stroke when she would be tearful all the time -aspirin 81mg -lipitor 40mg -BP 122/49 PAST MEDICAL HISTORY Diagnosis Date Hypertension Intracranial vascular stenosis No past surgical history on file. No family history on file. Social History Tobacco Use Smoking status: Never Smokeless tobacco: Never Substance Use Topics Alcohol use: Never Drug use: Never MEDICATIONS Current Outpatient Medications Medication Sig guaiFENesin (JELENAITUSSIN) 100 mg/5 mL syrup Take 200 mg by mouth every 4 hours as needed. potassium chloride ER (KLOR-CON M10) 10 mEq tablet Take 10 mEq by mouth two times a day. bisacodyl (DULCOLAX, BISACODYL,) 10 mg supp 10 mg by RECTAL route once daily as needed for constipation. chlorthalidone (HYGROTON) 25 mg tablet [employer] [facility] 10 billion cell -200 mg capsule polyethylene glycol 3350 17 gram/dose powder Take 17 g by mouth at bedtime as needed. acetaminophen (TYLENOL) 325 mg tablet Take 650 mg by mouth every 6 hours as needed. losartan (COZAAR) 50 mg tablet Take 50 mg by mouth once daily. magnesium hydroxide (EX-LAX MILK OF MAGNESIA ORAL) Take by mouth. aspirin 81 mg chewable tablet 1 tablet by ORAL/FEEDING TUBE route once daily. atorvastatin (LIPITOR) 40 mg tablet 1 tablet by ORAL/FEEDING TUBE route daily at bedtime. lactobacillus rhamnosus (CULTURELLE) 10 billion cell capsule Take 1 capsule by mouth once daily. SACCHAROMYCES BOULARDII-FOS ORAL Take by mouth. MUCUS-CHEST CONGESTION 100 mg/5 mL syrup mirtazapine (REMERON) 15 mg tablet Take 15 mg by mouth daily at bedtime. No current facility-administered medications for this visit. ALLERGIES ALLERGIES Allergen Reactions Amoxicillin Other: See Comments Makes her lethargic Ciprofloxacin Mental Status Change Sulfa (Sulfonamide * Mental Status Change PHYSICAL EXAMINATION BP (!) 122/49 Pulse 62 Ht 162.6 cm (5' 4) Wt 80.3 kg (177 lb) BMI 30.38 kg/m General: Well-developed, well-nourished, in no acute distress. HEENT: Normocephalic, atraumatic. Sclerae anicteric. Oropharynx clear. Neck: No JVD Heart: Skin well-perfused. Lungs: Breathing comfortably on room air. Extremities: RLE mild edema. No cyanosis or clubbing. Skin: No rash or ecchymoses. Neurological: Awake, alert, oriented to person, place, and time. Mild-moderate aphasia, dysarthria which has improved compared to last visit, able to communicate more effectively. Recall, comprehension intact. Good attention and insight into illness. Cranial Nerves: Extraocular movements intact without nystagmus. Visual falcon full. Facial movements normal and symmetric. Motor: Normal bulk and tone. Unable to move right arm. She can lift up her right leg and provide some resistance against gravity. Unable to dorsiflex. Otherwise strength 5/5 throughout. No tremor. Sensation: Intact light touch Gait: deferred LABS Cholesterol: Cholesterol, Total (mg/dL) Date Value 11/11/2022 163 LDL Cholesterol (mg/dL) Date Value 11/11/2022 96 HDL Cholesterol (mg/dL) Date Value 11/11/2022 54 Triglyceride (mg/dL) Date Value 11/11/2022 65 Diabetes: Hemoglobin A1C (%) Date Value 11/10/2022 5.4 IMAGING CTH 11/10/22 IMPRESSION: No acute findings. No evidence of acute infarction, intracranial hemorrhage or intracranial mass lesion CTA head and neck 11/10/22 IMPRESSION: No evidence of acute large vessel occlusion. Severe focal stenosis of the inferior division of the M2 segment right MCA likely secondary to noncalcified atherosclerotic plaque. Moderate to severe focal stenosis of the mid aspect of the basilar artery, likely secondary to atherosclerotic plaque MRI brain 11/11/22 IMPRESSION: Small acute infarct within left periventricular white matter and left basal ganglia. No evidence of associated intracranial hemorrhage. Susceptibility signal associated with posterior left periventricular white matter with associated T2 hypointensity. No corresponding hyperdense hemorrhage in CT examination. While this most likely represents cavernoma or chronic hemorrhage, possibility of other hemorrhagic lesions should be excluded with postcontrast MRI brain imaging. Echo 11/11/22 CONCLUSIONS: - Technically difficult exam due to suboptimal positioning. - Exam indication: Stroke - The left ventricle is normal in size. There is mild left ventricular hypertrophy. Left ventricular systolic function is normal. EF = 69 5% (2D biplane) Grade I left ventricular diastolic dysfunction. - The right ventricle is normal in size. Right ventricular systolic function is normal. - There are no significant valvular abnormalities. - The patient has not had a prior CC echocardiographic exam for comparison. DSA 11/12/22 FINDINGS: Mid-basilar stenosis approximately 50% with a residual lumen of 1.1 mm, with no significant flow limitation. Right angular M3 branch 60-65% stenosis over a 5 mm segment at its origin, with minimal flow delay No significant intracranial atherosclerotic stenosis of the left anterior circulation Mild atherosclerotic irregularities of bilateral carotid origins without significant stenosis Patient Entered Questionnaires PROMIS/NeuroQoL Score Percentiles Percentiles provide an indication of how a patient's score ranks in relation to the [place] general population. > 31st percentile is within normal limits or better * < 31st percentile is at least SD worse than population, which may be clinically relevant < 16th percentile is at least 1 SD worse than population and warrants attention Depression Screening: PHQ-9 Scores: PHQ-9 Self-Harm (Item 9) Response: 0 - 9 No to Mild depression 0 - Not at all 10 - 14 Moderate depression 1 - Several Days > 15 Severe depression 2 - More than half the days 3 - Nearly every day Stroke Mechanism and Scales Ischemic or TIA: Ischemic Stroke TOAST Mechanism (CCF-MODIFIED): Stroke of Undetermined Etiology Stroke of Undetermined etiology: Negative Evaluation Modified [place] Score: Score: 4 NIH Stroke Scale: LOC: 0 LOC Questions: 0 LOC Commands: 0 LOC Normal Gaze: 0 Visual Falcon: 0 Facial Palsy: 0 Motor Left Arm: 0 Motor Right Arm: 4 Motor Left Le Motor Right Le Limb Ataxia: 0 Sensory: 0 Language: 2 Dysarthria: 1 Extinction/Neglect: 0 Total Daily NIHSS: 9 Cerebrovascular Disease w/o Stroke Event: Intracranial Stenosis IMPRESSION Acute infarcts left periventricular white matter and left basal ganglia s/p TNK 11/10/22. No significant intracranial atherosclerosis of left anterior circulation per diagnostic cerebral angiogram. 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 The patient does not want any of her medications changed, though we discussed reasoning for this Discussed potential further work up for stroke, including loop recorder. They decline at this time. She doesn't want to do any further testing. Continue Aspirin daily for secondary stroke prevention. Continue Atorvastatin for secondary stroke prevention and LDL goal below 70. Continue monitoring blood pressure for goal below 130/80. Patient and family appreciate routine follow up. Follow up in 6 months, or sooner if needed. Can also postpone for a year if doing well. Medical Decision Making: Medical Decision Making Level: 1 - N/A I spent a total of 41 minutes on the date of service which included preparing to see the patient, [id number] patient care, completing clinical documentation, performing a medically appropriate examination, and counseling and educating the patient/family/caregiver SIGNATURE Apurva Bruno APRN.CNP CC No referring provider defined for this encounter. Evin Garcia (Dorothy) [address] [place] [address] documented in this encounter [facility] 11-12-2023 Note HNO ID: [id number] Author: APURVA BRUNO APRN.CNP Service: ? Author Type: Nurse Practitioner Type: Progress Notes Filed: 11/12/2023 14:25 Note Text: [facility] Established Visit Consultation is requested by: No referring provider defined for this encounter. PCP: Evin Almazan) [address] [place] [address] CEREBROVASCULAR HISTORY Myrna Saravia is a 77 year old female presenting for hospital discharge follow up. Admitted to [facility] 11/10-11/16/22. From discharge summary: 77-year-old female presented [facility] for acute onset of right upper extremity and right lower extremity weakness. Then was called and she was presented to [facility] where telestroke was called. She had a negative CT scan and the decision was made to give TNK by the stroke neurologist. She was then admitted to the intensive care unit post thrombolytics. Her CTA showed severe focal stenosis of the inferior division of the M2 segment right MCA likely due to noncalcified plaque and moderate to severe focal stenosis of the mid add SPECT of the basilar artery likely due to plaque. MRI showed acute infarct within left periventricular white matter and left basal ganglia. No evidence of associated intracranial hemorrhage. Echo showed EF 69%, grade 1 diastolic dysfunction. Neuro interventional radiology was asked to see her and she underwent a diagnostic cerebral angiogram. There was concern for worsening neuro deficits and patient underwent CT brain x [address] brain was stable and EEG without seizure. 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 She was also started on amlodipine and hydralazine for blood pressure control. She had LE ultrasound that were negative for proximal dvt. She also had R upper extremity ultrasound due to swelling that was also negative for dvt. Patient developed a rash to R arm after the ultrasound gel and tape around her IV sites. This will need monitored. She was seen by ST who recommended regular Consistency, thin Liquids IDDSI Level 0, medications crushed in puree (pudding/applesauce). PT and OT recommended acute rehab and she was discharged once precert obtained. She will need to follow up with her PCP and neurology. Reason for Visit: stroke Date of Last Event: 11/10/2022 Antiplatelets/Anticoagulants: Aspirin Statins: Atorvastatin Side effects: No Refills needed: No Residual Deficits: Right-sided weakness and Aphasia Current PT/OT/ST: Physical therapy at home, Occupational therapy at home and Speech therapy at home Initial Discharge Disposition: IRF Current Living Situation: Extended care Current use of a mobility aid for walking/getting around: Wheelchair/Scooter Do you have any planned upcoming surgeries or dental procedures? No Office Visit 12/19/22 -presents with her daughter Brooklynn -right sided weakness, aphasia improving -discharged from acute rehab and now in SNF -PT, OT, speech in facility -have not received cardiac event monitor -started Remeron in [facility] for mood (crying, bouts of anger) - had been on it for about 3 weeks, but then stopped it a few days ago due to urinary retention and incontinence to see if it would improve. Did not notice any benefit for mood yet. -they want to know if this is a good mood medication for her given her age -last 3 days has had incontinence and has needed straight cath -seeing Urology tomorrow -noting some episodes of paranoia, thinking people are doing bad things to her -her sleep schedule has been very inconsistent - she is up a lot of the night and naps during the day so likely not getting enough sleep -aspirin 81mg + plavix 75mg x 90 days - no bleeding complications -lipitor 40mg - no myalgias or other side effects -BP 110/56 -no new stroke-like symptoms -they were told in the hospital that they need to see Dr. Lutz as well, no appt scheduled yet Office Visit 02/1023 -presents with her daughter Brooklynn -in different alf facility, moved about a week ago- [facility] in [place] -aphasia and dysarthria improving -she still cannot move her right arm but her right leg is gaining strength, she can now lift it in the air -able to take some steps with the chely-cane -30 day event monitor - NSR, no afib -aspirin 81mg + plavix 75mg - no bleeding complications -lipitor 40mg - no myalgias or other side effects - LDL 38 on 02/10 -BP 105/54 -no new stroke-like symptoms -her mood and sleep have been better overall, still on remeron 15mg -still with some bowel and bladder incontinence, following with urology - had untreated UTI, now recommending timed voids Office Visit 05/14/23 -presents for follow up with her daughter Brooklynn -denies any (more content not included)... [facility] 04-15-2023 History of Past i llness Narrative Problem Noted Date Diagnosed Date Resolved Date Suspected stroke patient las t known to be well 2 to 3 hours ago 11/10/2022 11/10/2022 Stroke of uncertain pathology 11/10/2022 11/10/2022 documented as of this encounter (statuses as of 04/15/2023) [facility]10-09-2023 NoteHNO ID: [id number] Author: Lashanda Albrecht APRN.ONLINE MARKETING STRATEGIST Service: ? Author Type: Nurse Practitioner Type: Progress Notes Filed: 04/14/2023 3:56 PM Note Text: ESTABLISHED PATIENT OFFICE VISIT HISTORY OF PRESENT ILLNESS Myrna Saravia is a 78 year old female who presents today in f/u. Patient with a h/o urinary retention, UTI, CVA. Patient presents today in f/u. Patient now at [facility]. Recent UTI on 04/02/23. Finished a course of macrobid on 04/10/23. Patient's daughter feels her UTI has not resolved. She continues to have malodorous urine. No fever or chills. No gross hematuria. No dysuria. Still difficult for patient to feel her bladder. Does not have the urge to void most of the time. She is now being taken to the bathroom most of the time during the day at the [facility]. Mostly has incontinence into her depends. LAB RESULTS Creatinine Date Value Ref Range Status 12/09/2022 0.99 (H) 0.58 - 0.96 mg/dL Final No results found for: PSA Color (no units) Date Value 12/03/2022 Yellow Clarity (no units) Date Value 12/03/2022 Clear Glucose, Urine (no units) Date Value 12/03/2022 Negative Bilirubin, Urine (no units) Date Value 12/03/2022 Negative Ketones, Urine (no units) Date Value 12/03/2022 Negative Specific [place], Ur (no units) Date Value 12/03/2022 >=1.030 Hemoglobin/Blood,Ur (no units) Date Value 12/03/2022 Negative pH, Urine (no units) Date Value 12/03/2022 6.0 Protein, Urine (no units) Date Value 12/03/2022 Negative Urobilinogen (no units) Date Value 12/03/2022 0.2 EU/dL Nitrites (no units) Date Value 12/03/2022 Negative Leuk Esterase (no units) Date Value 12/03/2022 Negative MEDICATIONS: SACCHAROMYCES BOULARDII-FOS ORAL Take by mouth. MUCUS-CHEST CONGESTION 100 mg/5 mL syrup chlorthalidone (HYGROTON) 25 mg tablet polyethylene glycol 3350 17 gram/dose powder Take 17 g by mouth at bedtime as needed. acetaminophen (TYLENOL) 325 mg tablet Take 650 mg by mouth every 6 hours as needed. losartan (COZAAR) 50 mg tablet Take 50 mg by mouth once daily. magnesium hydroxide (EX-LAX MILK OF MAGNESIA ORAL) Take by mouth. mirtazapine (REMERON) 15 mg tablet Take 15 mg by mouth daily at bedtime. aspirin 81 mg chewable tablet 1 tablet by ORAL/FEEDING TUBE route once daily. atorvastatin (LIPITOR) 40 mg tablet 1 tablet by ORAL/FEEDING TUBE route daily at bedtime. cefdinir (OMNICEF) 300 mg capsule [facility] [employer] [facility] 10 billion cell -200 mg capsule clopidogrel (PLAVIX) 75 mg tablet 1 tablet by ORAL/FEEDING TUBE route once daily for 88 doses. lactobacillus rhamnosus (CULTURELLE) 10 billion cell capsule Take 1 capsule by mouth once daily. senna-docusate (SENNA-S) 8.6-50 mg per tablet 1 tablet by ORAL/FEEDING TUBE route twice daily. REVIEW OF SYSTEMS CONSTITUTIONAL: Patient reports no recent fever or weight loss CARDIOVASCULAR: No chest pain, palpitations or ankle edema. RESPIRATORY: No wheezing, frequent cough or shortness of breath GENITOURINARY: See HPI HISTORIES PAST MEDICAL HISTORY Diagnosis Date Hypertension Intracranial vascular stenosis History reviewed. No pertinent family history. History reviewed. No pertinent surgical history. SOCIAL HISTORY Social History Tobacco Use Smoking status: Never Smokeless tobacco: Never Substance Use Topics Alcohol use: Never Drug use: Never PHYSICAL EXAMINATION General appearance: Well appearing, alert, in no acute distress, well-hydrated, well nourished.. BACK: not examined. MUSCULOSKELETAL: Negative for joint pain or swelling. RESPIRATORY: Normal respiratory effort. SKIN: Normal color, no rash, no lesions.. ASSESSMENT/PLAN: 1. Retention of urine - ICD9: 788.20, ICD10: R33.9 2. Urinary tract infection with hematuria, site unspecified - ICD9: 599.0, 599.70, ICD10: N39.0, R31.9 -We will repeat a cath culture from the facility this 04/16/2023. -We will follow-up with her in 6 months or sooner if any issues. Lashanda Albrecht APRN.ONLINE MARKETING STRATEGIST More than half of todays over 40 minute [id number] office visit was spent in counselling/[facility] Instructions* Patient Instructions* Lashanda Albrecht APRN.ONLINE MARKETING STRATEGIST - 04/14/2023 3:33 PM EDT Please recheck a urine culture on patient this 04/16/2023. Okay to use a clean hat. Please straight cath patient if unable to have her void into a specimen cup or hat. Urine culture orders provided. Please try to give patient opportunity to void on the toilet during the day. We will continue to monitor UTI symptoms. Please call urology with any questions. Lashanda Albrecht APRN.ONLINE MARKETING STRATEGIST [phone] documented [facility] History of Present illness Narrative* Lashanda Albrecht APRN.CNP - 04/14/2023 3:08 PM EDT ESTABLISHED PATIENT OFFICE VISIT HISTORY OF PRESENT ILLNESS Myrna Saravia is a 78 year old female who presents today in f/u. Patient with a h/o urinary retention, UTI, CVA. Patient presents today in f/u. Patient now at [facility]. Recent UTI on 04/02/23. Finished a course of macrobid on 04/10/23. Patient's daughter feels her UTI has not resolved. She continues to have malodorous urine. No fever or chills. No gross hematuria. No dysuria. Still difficult for patient to feel her bladder. Does not have the urge to void most of the time. She is now being taken to the bathroom most of the time during the day at the [facility]. Mostly has incontinence into her depends. LAB RESULTS Creatinine Date Value Ref Range Status 12/09/2022 0.99 (H) 0.58 - 0.96 mg/dL Final No results found for: PSA Color (no units) Date Value 12/03/2022 Yellow Clarity (no units) Date Value 12/03/2022 Clear Glucose, Urine (no units) Date Value 12/03/2022 Negative Bilirubin, Urine (no units) Date Value 12/03/2022 Negative Ketones, Urine (no units) Date Value 12/03/2022 Negative Specific [place], Ur (no units) Date Value 12/03/2022 >=1.030 Hemoglobin/Blood,Ur (no units) Date Value 12/03/2022 Negative pH, Urine (no units) Date Value 12/03/2022 6.0 Protein, Urine (no units) Date Value 12/03/2022 Negative Urobilinogen (no units) Date Value 12/03/2022 0.2 EU/dL Nitrites (no units) Date Value 12/03/2022 Negative Leuk Esterase (no units) Date Value 12/03/2022 Negative MEDICATIONS: SACCHAROMYCES BOULARDII-FOS ORAL Take by mouth. MUCUS-CHEST CONGESTION 100 mg/5 mL syrup chlorthalidone (HYGROTON) 25 mg tablet polyethylene glycol 3350 17 gram/dose powder Take 17 g by mouth at bedtime as needed. acetaminophen (TYLENOL) 325 mg tablet Take 650 mg by mouth every 6 hours as needed. losartan (COZAAR) 50 mg tablet Take 50 mg by mouth once daily. magnesium hydroxide (EX-LAX MILK OF MAGNESIA ORAL) Take by mouth. mirtazapine (REMERON) 15 mg tablet Take 15 mg by mouth daily at bedtime. aspirin 81 mg chewable tablet 1 tablet by ORAL/FEEDING TUBE route once daily. atorvastatin (LIPITOR) 40 mg tablet 1 tablet by ORAL/FEEDING TUBE route daily at bedtime. cefdinir (OMNICEF) 300 mg capsule [employer] 10 billion cell -200 mg capsule clopidogrel (PLAVIX) 75 mg tablet 1 tablet by ORAL/FEEDING TUBE route once daily for 88 doses. lactobacillus rhamnosus (CULTURELLE) 10 billion cell capsule Take 1 capsule by mouth once daily. senna-docusate (SENNA-S) 8.6-50 mg per tablet 1 tablet by ORAL/FEEDING TUBE route twice daily. REVIEW OF SYSTEMS CONSTITUTIONAL: Patient reports no recent fever or weight loss CARDIOVASCULAR: No chest pain, palpitations or ankle edema. RESPIRATORY: No wheezing, frequent cough or shortness of breath GENITOURINARY: See HPI HISTORIES PAST MEDICAL HISTORY Diagnosis Date Hypertension Intracranial vascular stenosis History reviewed. No pertinent family history. History reviewed. No pertinent surgical history. SOCIAL HISTORY Social History Tobacco Use Smoking status: Never Smokeless tobacco: Never Substance Use Topics Alcohol use: Never Drug use: Never PHYSICAL EXAMINATION General appearance: Well appearing, alert, in no acute distress, well-hydrated, well nourished.. BACK: not examined. MUSCULOSKELETAL: Negative for joint pain or swelling. RESPIRATORY: Normal respiratory effort. SKIN: Normal color, no rash, no lesions.. ASSESSMENT/PLAN: 1. Retention of urine - ICD9: 788.20, ICD10: R33.9 2. Urinary tract infection with hematuria, site unspecified - ICD9: 599.0, 599.70, ICD10: N39.0, R31.9 -We will repeat a cath culture from the facility this 04/16/2023. -We will follow-up with her in 6 months or sooner if any issues. Lashanda Albrecht APRN.CNP More than half of todays over 40 minute [id number] office visit was spent in counselling/coordination of care documented in this encounterBarney [facility] History of Past illness Narrative* Problem Noted Date Diagnosed Date Resolved Date Suspected stroke patient las t known to be well 2 to 3 hours ago 11/10/2022 11/10/2022 Stroke of uncertain pathology 11/10/2022 11/10/2022 documented as of this encounter (statuses as of 02/14/2023) [facility]08-[facility] Instructions* Patient Instructions* Apurva Bruno APRN.CNP - 02/13/2023 2:51 PM EDT Images from the original note were not included. Regarding your visit with Nurse Practitioner Apurva Bruno today at the [facility] C[facility] we discussed the following: Impression: Acute infarcts left periventricular white matter and left basal ganglia s/p TNK 11/10/22. No significant intracranial atherosclerosis of left anterior circulation per diagnostic cerebral angiogram. 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 Continue Atorvastatin for secondary stroke prevention and LDL goal below 70. Continue monitoring blood pressure for goal below 130/80. Follow up in 3 months -Regular follow up with primary care doctor for health maintenance -Assist ensuring blood pressure and cholesterol are at goal -Screen and manage diabetes -Lifestyle modification -- Establish goals -Diet -Regular Exercise as discussed -Establish weight goals with primary care doctor -Additional stroke reduction measures and stroke warning signs are listed below. Please do not hesitate to call if you have any questions Apurva Bruno CNP Cerebrovascular [place] Nurse Practitioner [place], [place] [address] Office: [phone] Appointments: [phone] Stroke Signs and Symptoms: *Stroke is a medical emergency. Know the warning signs of stroke: Sudden numbness or weakness of the face, arm or leg, especially on one side of the body Sudden confusion, trouble speaking, or understanding Sudden trouble seeing in one eye, or both eyes Sudden trouble walking, dizziness, loss of balance, or coordination Sudden severe headache with no known cause *If you, or someone with you, has one or more of these signs, don't delay! Immediately call 911, orthe emergency medical services (EMS) number so an ambulance can be sent for you. Also, check the time so that you will know when the symptoms first appeared. It is very important to take immediate action, every second counts. Medical treatment may be available if action is taken early enough. ~~~~~~~~~~~~~~~~~~~~~~~~~~~~~~~~~~~~~~~~~~~~~~~~~~~~~~~~~~~~~~~~~~~~~~~~ General Guidelines to Help Reduce Risk of Recurrent Stroke Blood Pressure -Blood Pressure reduction is recommended for both prevention of recurrent stroke and prevention of other vascular events in persons who have had an ischemic stroke or transient ischemic attack (TIA) and are beyond the first 24 hours. -Several lifestyle modifications have been associated with BP reduction and are a reasonable part of a comprehensive antihypertensive therapy -These modifications include: - salt restriction - weight loss - consumption of a diet rich in fruits, vegetables, and low-fat dairy products - regular aerobic physical activity - limited alcohol consumption Goal: Prehypertension (systolic BP of 120-139 mm Hg or diastolic BP of 80-89 mm Hg): Perform annual BP screening and lifestyle modifications Hypertension: Combine medications with above lifestyle modifications to reach your goal blood pressure as defined above. Monitor your blood pressure at home regularly to ensure you are reaching your goals Diabetes - Maintain good control of diabetes if you have it by working with your primary care physician to adjust medications and lifestyle (diet) modification Cholesterol and Lipid Management - Statin therapy with intensive lipid-lowering effects is recommended to reduce risk of stroke and cardiovascular events among patients with ischemic stroke or TIA who have evidence of atherosclerosis Diet - Limit carbohydrates, saturated and trans fats, sodium, sweets, and red meat - Consume fruits, vegetables, whole grains, low-fat dairy products, skinless poultry, nuts and legumes - Consider the DASH (Dietary Approaches to Stop Hypertension) eating plan - more information: https://www.heart.org/en/healthy-living/healthy-eating/eat-smart/nutrition-basic s/krl-bdqx-mdv-lifestyle-recommendations Smoking and Tobacco Use (including e-cigarettes) - Strongly recommend against smoking and tobacco use - Counseling, nicotine products, and oral smoking cessation medications are effective for helping smokers quit Alcohol Consumption - Heavy drinkers should eliminate or reduce their consumption of alcohol. - Persons who continue drinking the following may be reasonable: - less than or equal to 2 drinks/day for men - less than or equal to 1 drink/day for non women Exercise - If capable of engaging in physical activity, at least 40 minutes of moderate to vigorous intensity physical exercise, typically defined as vigorous activity sufficient to break a sweat or noticeably raise heart rate, 3-4 days a week (eg, walking briskly, using an exercise bicycle) may be considered to reduce the risk factors and comorbid conditions that increase the likelihood of recurrent stroke - If disability after ischemic stroke, supervision by a healthcare professional, such as a physicaltherapist or cardiac rehabilitation professional, at least on initiation of an exercise regimen, may be considered Adopted from the [place] [employer] Attack : A Guideline for Healthcare Professionals Fromthe [place] Heart Guidelines for the Prevention of Stroke in Patients With Stroke or Transient Ischemic - 2013 documented in this encounterBarney [facility]08-10-2023 History of Present illness Narrative* Apurva Bruno APRN.CNP - 02/13/2023 2:00 PM EDT CEREBROVASCULAR CENTER Established Visit Consultation is requested by: No referring provider defined for this encounter. PCP: Evin Garcia ([facility]) [place] [address] CEREBROVASCULAR HISTORY Myrna Saravia is a 77 year old female presenting for hospital discharge follow up. Admitted to [facility] 11/10-11/16/22. From discharge summary: 77-year-old female presented [facility] for acute onset of right upper extremity and right lower extremity weakness. Then was called and she was presented to [facility] where telestroke was called. She had a negative CT scan and the decision was made to give TNK by the stroke neurologist. She was then admitted to the intensive care unit post thrombolytics. Her CTA showed severe focal stenosis of the inferior division of the M2 segment right MCA likely due to noncalcifiedplaque and moderate to severe focal stenosis of the mid add SPECT of the basilar artery likely due to plaque. MRI showed acute infarct within left periventricular white matter and left basal ganglia.No evidence of associated intracranial hemorrhage. Echo showed EF 69%, grade 1 diastolic dysfunction. Neuro interventional radiology was asked to see her and she underwent a diagnostic cerebral angiogram. There was concern for worsening neuro deficits and patient underwent CT brain x [address] brain was stable and EEG without seizure. 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 She was also started on amlodipine and hydralazine for blood pressure control. She had LE ultrasound that were negative for proximal dvt. She also had R upper extremity ultrasound due to swelling that was also negative for dvt. Patient developed a rash to R arm after the ultrasound gel and tape around her IV sites. This will need monitored. She was seen by ST who recommended regular Consistency, thin Liquids IDDSI Level 0, medications crushed in puree ( pudding/applesauce). PT and OT recommended acute rehab and she was discharged once precert obtained. She will need to follow up with her PCP and neurology. Reason for Visit: stroke Date of Last Event: 11/10/2022 Antiplatelets/Anticoagulants: Aspirin and Clopidogrel Statins: Atorvastatin Side effects: No Refills needed: No Residual Deficits: Right-sided weakness and Aphasia Current PT/OT/ST: Physical therapy at home, Occupational therapy at home and Speech therapy at home Initial Discharge Disposition: IRF Current Living Situation: Extended care Do you have any planned upcoming surgeries or dental procedures? No Office Visit 12/19/22 -presents with her daughter Brooklynn -right sided weakness, aphasia improving -discharged from acute rehab and now in SNF -PT, OT, speech in facility -have not received cardiac event monitor -started Remeron in [place] for mood (crying, bouts of anger) - had been on it for about 3 weeks, but then stopped it a few days ago due to urinary retention and incontinence to see if it would improve. Did not notice any benefit for mood yet. -they want to know if this is a good mood medication for her given her age -last 3 days has had incontinence and has needed straight cath -seeing Urology tomorrow -noting some episodes of paranoia, thinking people are doing bad things to her -her sleep schedule has been very inconsistent - she is up a lot of the night and naps during the day so likely not getting enough sleep -aspirin 81mg + plavix 75mg x 90 days - no bleeding complications -lipitor 40mg - no myalgias or other side effects -BP 110/56 -no new stroke-like symptoms -they were told in the hospital that they need to see Dr. Lutz as well, no appt scheduled yet Office Visit 02/1023 -presents with her daughter Brooklynn -in different alf facility, moved about a week ago- [facility] in [place] -aphasia and dysarthria improving -she still cannot move her right arm but her right leg is gaining strength, she can now lift it in the air -able to take some steps with the chely-cane -30 day event monitor - NSR, no afib -aspirin 81mg + plavix 75mg - no bleeding complications -lipitor 40mg - no myalgias or other side effects - LDL 38 on 02/10 -BP 105/54 -no new stroke-like symptoms -her mood and sleep have been better overall, still on remeron 15mg -still with some bowel and bladder incontinence, following with urology - had untreated UTI, now recommending timed voids PAST MEDICAL HISTORY Diagnosis Date Hypertension Intracranial vascular stenosis History reviewed. No pertinent surgical history. History reviewed. No pertinent family history. Social History Tobacco Use Smoking status: Never Smokeless tobacco: Never Substance Use Topics Alcohol use: Never Drug use: Never MEDICATIONS Current Outpatient Medications Medication Sig MUCUS-CHEST CONGESTION 100 mg/5 mL syrup chlorthalidone (HYGROTON) 25 mg tablet polyethylene glycol 3350 17 gram/dose powder Take 17 g by mouth at bedtime as needed. acetaminophen (TYLENOL) 325 mg tablet Take 650 mg by mouth every 6 hours as needed. losartan (COZAAR) 50 mg tablet Take 50 mg by mouth once daily. magnesium hydroxide (EX-LAX MILK OF MAGNESIA ORAL) Take by mouth. mirtazapine (REMERON) 15 mg tablet Take 15 mg by mouth daily at bedtime. aspirin 81 mg chewable tablet 1 tablet by ORAL/FEEDING TUBE route once daily. atorvastatin (LIPITOR) 40 mg tablet 1 tablet by ORAL/FEEDING TUBE route daily at bedtime. lactobacillus rhamnosus (CULTURELLE) 10 billion cell capsule Take 1 capsule by mouth once daily. senna-docusate (SENNA-S) 8.6-50 mg per tablet 1 tablet by ORAL/FEEDING TUBE route twice daily. cefdinir (OMNICEF) 300 mg capsule [employer] DIGESTIVE HEALTH 10 billion cell -200 mg capsule clopidogrel (PLAVIX) 75 mg tablet 1 tablet by ORAL/FEEDING TUBE route once daily for 88 doses. No current facility-administered medications for this visit. ALLERGIES ALLERGIES Allergen Reactions Amoxicillin Other: See Comments Makes her lethargic Ciprofloxacin Mental Status Change Sulfa (Sulfonamide * Mental Status Change PHYSICAL EXAMINATION BP 105/54 (BP Site: Left Arm, BP Position: Sitting, BP Cuff Size: Extra Large Adult) Pulse 75 Ht 162.6 cm (5' 4) Wt 80.3 kg (177 lb) BMI 30.38 kg/m General: Well-developed, well-nourished, in no acute distress. HEENT: Normocephalic, atraumatic. Sclerae anicteric. Oropharynx clear. Neck: No JVD Heart: Skin well-perfused. Lungs: Breathing comfortably on room air. Extremities: No edema, cyanosis, or clubbing. Skin: No rash or ecchymoses. Neurological: Awake, alert, oriented to person, place, and time. Mild aphasia, dysarthria. Naming, repetition, recall, comprehension intact. Good attention and insight into illness. Cranial Nerves: PERRL, extraocular movements intact without nystagmus. Visual falcon full. Facial sensation and movements normal and symmetric. Palate elevates equal bilaterally. Tongue midline. Trapezius strength 5/5 bilaterally. Motor: Normal bulk and tone. Unable to move right arm. She can lift up her right leg and provide some resistance against gravity. Otherwise strength 5/5 throughout. No pronator drift or tremor. Sensation: Intact light touch. Coordination: Rapid alternating movements symmetric bilaterally. [id number] without dysmetria bilaterally. Gait: deferred LABS Cholesterol: Cholesterol, Total (mg/dL) Date Value 11/11/2022 163 LDL Cholesterol (mg/dL) Date Value 11/11/2022 96 HDL Cholesterol (mg/dL) Date Value 11/11/2022 54 Triglyceride (mg/dL) Date Value 11/11/2022 65 Diabetes: Hemoglobin A1C (%) Date Value 11/10/2022 5.4 IMAGING CTH 11/10/22 IMPRESSION: No acute findings. No evidence of acute infarction, intracranial hemorrhage or intracranial mass lesion CTA head and neck 11/10/22 IMPRESSION: No evidence of acute large vessel occlusion. Severe focal stenosis of the inferior division of the M2 segment right MCA likely secondary to noncalcified atherosclerotic plaque. Moderate to severe focal stenosis of the mid aspect of the basilar artery, likely secondary to atherosclerotic plaque MRI brain 11/11/22 IMPRESSION: Small acute infarct within left periventricular white matter and left basal ganglia. No evidence of associated intracranial hemorrhage. Susceptibility signal associated with posterior left periventricular white matter with associated T2 hypointensity. No corresponding hyperdense hemorrhage in CT examination. While this most likely represents cavernoma or chronic hemorrhage, possibility of other hemorrhagic lesions should be excluded with postcontrast MRI brain imaging. Echo 11/11/22 CONCLUSIONS: - Technically difficult exam due to suboptimal positioning. - Exam indication: Stroke - The left ventricle is normal in size. There is mild left ventricular hypertrophy. Left ventricular systolic function is normal. EF = 69 5% (2D biplane) Grade I left ventricular diastolic dysfunction. - The right ventricle is normal in size. Right ventricular systolic function is normal. - There are no significant valvular abnormalities. - The patient has not had a prior CC echocardiographic exam for comparison. DSA 11/12/22 FINDINGS: Mid-basilar stenosis approximately 50% with a residual lumen of 1.1 mm, with no significant flow limitation. Right angular M3 branch 60-65% stenosis over a 5 mm segment at its origin, with minimal flow delay No significant intracranial atherosclerotic stenosis of the left anterior circulation Mild atherosclerotic irregularities of bilateral carotid origins without significant stenosis Patient Entered Questionnaires PROMIS/NeuroQoL Score Percentiles Percentiles provide an indication of how a patient's score ranks in relation to the [place] general population. > 31st percentile is within normal limits or better * < 31st percentile is at least SD worse than population, which may be clinically relevant < 16th percentile is at least 1 SD worse than population and warrants attention Depression Screening: PHQ-9 Scores: PHQ-9 Self-Harm (Item 9) Response: 0 - 9 No to Mild depression 0 - Not at all 10 - 14 Moderate depression 1 - Several Days > 15 Severe depression 2 - More than half the days 3 - Nearly every day Stroke Mechanism and Scales Ischemic or TIA: Ischemic Stroke TOAST Mechanism (CCF-MODIFIED): Stroke of Undetermined Etiology Stroke of Undetermined etiology: Incomplete Evaluation Cerebrovascular Disease w/o Stroke Event: Intracranial Stenosis Modified [place] Score: Score: 4 IMPRESSION Acute infarcts left periventricular white matter and left basal ganglia s/p TNK 11/10/22. No significant intracranial atherosclerosis of left anterior circulation per diagnostic cerebral angiogram. Etiology likely small vessel disease Severe R M2 stenosis likely secondary to atherosclerotic plaque Mod-severe mid-basilar artery stenosis likely secondary to atherosclerotic plaque Hypertension Hyperlipidemia - controlled, LDL 38 Paranoia likely in setting of delirium, circadian rhythm disturbance - resolved Adjustment disorder with mixed anxiety and depressed mood - improved Sleep disturbance - resolved PLAN Stop plavix Continue Aspirin daily for secondary stroke prevention. Continue Atorvastatin for secondary stroke prevention and LDL goal below 70. Continue monitoring blood pressure for goal below 130/80. Follow up in 3 months Medical Decision Making: Medical Decision Making Level: 1 - N/A I spent a total of 46 minutes on the date of service which included preparing to see the patient, [id number] patient care, completing clinical documentation, obtaining and/or reviewing separately obtained history, performing a medically appropriate examination, counseling and educating the patient/family/caregiver, independently interpreting results (not separately reported), communicating results to the patient/family/caregiver, and care coordination (not separately reported) SIGNATURE Apurva Bruno APRN.ONLINE MARKETING STRATEGIST CC No referring provider defined for this encounter. Evin Garcia ([facility]) [address] [place] [address] documented in this encounterBarney [facility]07-31-[facility] History of Past illness Narrative* Problem Noted Date Diagnosed Date Resolved Date Suspected stroke patient las t known to be well 2 to 3 hours ago 11/10/2022 11/10/2022 Stroke of uncertain pathology 11/10/2022 11/10/2022 documented as of this encounter (statuses as of 02/04/2023) [facility] History of Present illness Narrative* Griselda Murphy PA-C - 02/03/2023 1:17 PM EDT GASTROENTEROLOGY OUTPATIENT NEW OFFICE VISIT CC: Patient presents with: Consult HPI: Myrna Saravia is a 77 year old female who presents for Consult for esophageal stricture. She had an abnormal swallow study while in rehab. She denies difficulty swallowing. She is having difficulty tasting and smelling so not much of an appetite. She has trouble eating, because of this. She states that she doesn't like the food at the facility. But denies any difficulty swallowing- though they do have her on a soft diet at the facility. She denies food getting stuck. Denies vomiting. Denies chestfullness or pressure when eating. NSAID use: Unexplained weight loss: lost 20lbs few months Take Blood thinners: plavix and aspirin Bowel Habits: twice daily, soft Current Outpatient Medications Medication Sig MUCUS-CHEST CONGESTION 100 mg/5 mL syrup cefdinir (OMNICEF) 300 mg capsule chlorthalidone (HYGROTON) 25 mg tablet [facility] [employer] HEALTH 10 billion cell -200 mg capsule polyethylene glycol 3350 17 gram/dose powder Take 17 g by mouth at bedtime as needed. acetaminophen (TYLENOL) 325 mg tablet Take 650 mg by mouth every 6 hours as needed. losartan (COZAAR) 50 mg tablet Take 50 mg by mouth once daily. magnesium hydroxide (EX-LAX MILK OF MAGNESIA ORAL) Take by mouth. mirtazapine (REMERON) 15 mg tablet Take 15 mg by mouth daily at bedtime. aspirin 81 mg chewable tablet 1 tablet by ORAL/FEEDING TUBE route once daily. atorvastatin (LIPITOR) 40 mg tablet 1 tablet by ORAL/FEEDING TUBE route daily at bedtime. clopidogrel (PLAVIX) 75 mg tablet 1 tablet by ORAL/FEEDING TUBE route once daily for 88 doses. hydrALAZINE (APRESOLINE) 50 mg tablet Take 1 tablet by mouth every 8 hours. amLODIPine (NORVASC) 10 mg tablet 1 tablet by ORAL/FEEDING TUBE route once daily. lactobacillus rhamnosus (CULTURELLE) 10 billion cell capsule Take 1 capsule by mouth once daily. senna-docusate (SENNA-S) 8.6-50 mg per tablet 1 tablet by ORAL/FEEDING TUBE route twice daily. No current facility-administered medications for this visit. PAST MEDICAL HISTORY Diagnosis Date Hypertension Intracranial vascular stenosis History reviewed. No pertinent surgical history. No family history on file. Social History Tobacco Use Smoking status: Never Smokeless tobacco: Never Substance Use Topics Alcohol use: Never Drug use: Never ALLERGIES Allergen Reactions Amoxicillin Other: See Comments Makes her lethargic Ciprofloxacin Mental Status Change Sulfa (Sulfonamide * Mental Status Change GI SPECIFIC ROS: Difficulty swallowing / foods sticking in throat: No Heartburn: No Hoarseness: No Chronic cough: No Regurgitation: No Chest pain: No Filling up quickly at meals: Yes Loss of appetite: Yes Nausea: No Vomiting: No Abdominal pain: No Recent change in bowel movements: No Bloody or black, bowel movements: No Constipation: No Diarrhea: No Loss of control of bowel movements: No Night sweats, fever, chills: No Vomiting blood: No Recent change in weight: No PHYSICAL EXAMINATION: BP 127/78 Pulse 77 Ht 165.1 cm (5' 5) Wt 82.6 kg (182 lb) BMI 30.29 kg/m GENERAL APPEARANCE: Well appearing, alert, in no acute distress, well-hydrated, well nourished. SKIN: Skin color, texture, turgor normal, no suspicious rashes or lesions. EYES: Anicteric sclera. Extraocular movements are intact. NECK: Supple, no adenopathy; thyroid symmetric, normal size, no bruits. LUNGS: Lungs clear to auscultation. No wheezing, rhonchi, rales. HEART: RRR without murmur, gallop, or rubs. No ectopy. ABDOMEN: Abdomen soft, non-tender, non distended. Bowel sounds normal. EXTREMITIES: No deformities, edema, skin discoloration, clubbing or cyanosis. NEUROLOGIC: Gait normal. Sensation and strength grossly intact. ASSESSMENT AND PLAN: Impression: This is a 77yr oldfemale who recently had a stroke and is now in a nursing faciltiy/rehab. While there, she had a MBS which showed low risk of aspiration, but showed a narrowed section in the distal esophagus where food was delayed, but eventually cleared This report was seen on the patient's daughters phone, report from [facility]. Patient denied all associated symptoms. She does not want to proceed with an egd at this time. Advised her that if the symptoms would develop as they advance her diet, to let us know and we will get her in for an eGD to further investigate. Patient and her daughter agree with this plan. ASSESSMENT/PLAN: 1. Esophageal stricture - ICD9: 530.3, ICD10: K22.2 -recommended EGD, Patient declines at this time as she is asymptomatic. Advised to call if/when would like to proceed. Griselda Murphy PA-C I spent a total of 38 minutes on the date of the service which included preparing to see the patient, [id number] patient care, completing clinical documentation, performing a medically appropriate examination, counseling and educating the patient/family/caregiver, and ordering medications, tests,or procedures. documented in this encounterBarney [facility] History of Past illness Narrative* Problem Noted Date Diagnosed Date Resolved Date Suspected stroke patient las t known to be well 2 to 3 hours ago 11/10/2022 11/10/2022 Stroke of uncertain pathology 11/10/2022 11/10/2022 documented as of this encounter (statuses as of 01/31/2023) [facility]07-[facility]23 NoteHNO ID: [id number] Author: Lashanda Albrecht APRN.JANICE Service: ? Author Type: Nurse Practitioner Type: Progress Notes Filed: 01/31/2023 2:16 PM Note Text: ESTABLISHED PATIENT OFFICE VISIT HISTORY OF PRESENT ILLNESS Myrna Saravia is a 77 year old female who presents today in f/u. 01/10/23: Patient with a h/o CVA, urinary retention, UTI. She presents today with her daughter in f/u. Patient states she has been able to void on her home in the facility get her up to the bathroom. She was able to void about an hour ago before her appointment, her PVR is 25 cc today. Denies any gross hematuria. No fever or chills. No dysuria. We will continue to do timed voiding and PVR checks. We will ask the facility to do a urine culture. Today's note: Patient presents today in f/u of urinary retention, UTI, CVA. Patient and her daughter feel patient has had some improvement in her bladder issues. She has had an increase in urinary urgency, she can feel her bladder better now. Has the urge to void. She has had some urge incontinence recently, not able to make it to the bathroom in time. Patient can not always make it to the bathroom, has to rely on staff to get her to the bathroom. Has not had to be straight cathed recently. No gross hematuria. No dysuria. UTI on 01/11/23, treated with omniceff. Repeat UA last week was negative. LAB RESULTS Creatinine Date Value Ref Range Status 12/09/2022 0.99 (H) 0.58 - 0.96 mg/dL Final No results found for: PSA Color (no units) Date Value 12/03/2022 Yellow Clarity (no units) Date Value 12/03/2022 Clear Glucose, Urine (no units) Date Value 12/03/2022 Negative Bilirubin, Urine (no units) Date Value 12/03/2022 Negative Ketones, Urine (no units) Date Value 12/03/2022 Negative Specific [place], Ur (no units) Date Value 12/03/2022 >=1.030 Hemoglobin/Blood,Ur (no units) Date Value 12/03/2022 Negative pH, Urine (no units) Date Value 12/03/2022 6.0 Protein, Urine (no units) Date Value 12/03/2022 Negative Urobilinogen (no units) Date Value 12/03/2022 0.2 EU/dL Nitrites (no units) Date Value 12/03/2022 Negative Leuk Esterase (no units) Date Value 12/03/2022 Negative MEDICATIONS: MUCUS-CHEST CONGESTION 100 mg/5 mL syrup chlorthalidone (HYGROTON) 25 mg tablet [employer] 10 billion cell -200 mg capsule acetaminophen (TYLENOL) 325 mg tablet Take 650 mg by mouth every 6 hours as needed. losartan (COZAAR) 50 mg tablet Take 50 mg by mouth once daily. magnesium hydroxide (EX-LAX MILK OF MAGNESIA ORAL) Take by mouth. mirtazapine (REMERON) 15 mg tablet Take 15 mg by mouth daily at bedtime. aspirin 81 mg chewable tablet 1 tablet by ORAL/FEEDING TUBE route once daily. atorvastatin (LIPITOR) 40 mg tablet 1 tablet by ORAL/FEEDING TUBE route daily at bedtime. clopidogrel (PLAVIX) 75 mg tablet 1 tablet by ORAL/FEEDING TUBE route once daily for 88 doses. senna-docusate (SENNA-S) 8.6-50 mg per tablet 1 tablet by ORAL/FEEDING TUBE route twice daily. cefdinir (OMNICEF) 300 mg capsule (Patient not taking: Reported on 01/31/2023) polyethylene glycol 3350 17 gram/dose powder Take 17 g by mouth at bedtime as needed. (Patient not taking: Reported on 01/10/2023) hydrALAZINE (APRESOLINE) 50 mg tablet Take 1 tablet by mouth every 8 hours. (Patient not taking: Reported on 12/20/2022) amLODIPine (NORVASC) 10 mg tablet 1 tablet by ORAL/FEEDING TUBE route once daily. (Patient not taking: Reported on 01/10/2023) lactobacillus rhamnosus (CULTURELLE) 10 billion cell capsule Take 1 capsule by mouth once daily. (Patient not taking: Reported on 01/10/2023) REVIEW OF SYSTEMS CONSTITUTIONAL: Patient reports no recent fever or weight loss CARDIOVASCULAR: No chest pain, palpitations or ankle edema. RESPIRATORY: No wheezing, frequent cough or shortness of breath GENITOURINARY: See HPI HISTORIES PAST MEDICAL HISTORY Diagnosis Date Hypertension Intracranial vascular stenosis History reviewed. No pertinent family history. History reviewed. No pertinent surgical history. SOCIAL HISTORY Social History Tobacco Use Smoking status: Never Smokeless tobacco: Never Substance Use Topics Alcohol use: Never Drug use: Never PHYSICAL EXAMINATION General appearance: Well appearing, alert, in no acute distress, well-hydrated, well nourished.. BACK: not examined. MUSCULOSKELETAL: Negative for joint pain or swelling. RESPIRATORY: Normal respiratory effort. SKIN: Normal color, no rash, no lesions.. ASSESSMENT/PLAN: 1. Retention of urine - ICD9: 788.20, ICD10: R33.9 - continue current orders. - f/u in 8 weeks. 2. Urinary tract infection with hematuria, site unspecified - ICD9: 599.0, 599.70, ICD10: N39.0, R31.9 Lashanda Albrecht APRN.JANICES[facility] History of Present illness Narrative* Lashanda Albrecht APRN.JANICE - 01/31/2023 1:49 PM EDT ESTABLISHED PATIENT OFFICE VISIT HISTORY OF PRESENT ILLNESS Myrna Saravia is a 77 year old female who presents today in f/u. 01/10/23: Patient with a h/o CVA, urinary retention, UTI. She presents today with her daughter in f/u. Patient states she has been able to void on her home in the facility get her up to the bathroom. She was able to void about an hour ago before her appointment, her PVR is 25 cc today. Denies any gross hematuria. No fever or chills. No dysuria. We will continue to do timed voiding and PVR checks. We will ask the facility to do a urine culture. Today's note: Patient presents today in f/u of urinary retention, UTI, CVA. Patient and her daughter feel patient has had some improvement in her bladder issues. She has had an increase in urinary urgency, she can feel her bladder better now. Has the urge to void. She has had some urge incontinencerecently, not able to make it to the bathroom in time. Patient can not always make it to the bathroom, has to rely on staff to get her to the bathroom. Has not had to be straight cathed recently. No gross hematuria. No dysuria. UTI on 01/11/23, treated with omniceff. Repeat UA last week was negative. LAB RESULTS Creatinine Date Value Ref Range Status 12/09/2022 0.99 (H) 0.58 - 0.96 mg/dL Final No results found for: PSA Color (no units) Date Value 12/03/2022 Yellow Clarity (no units) Date Value 12/03/2022 Clear Glucose, Urine (no units) Date Value 12/03/2022 Negative Bilirubin, Urine (no units) Date Value 12/03/2022 Negative Ketones, Urine (no units) Date Value 12/03/2022 Negative Specific [place], Ur (no units) Date Value 12/03/2022 >=1.030 Hemoglobin/Blood,Ur (no units) Date Value 12/03/2022 Negative pH, Urine (no units) Date Value 12/03/2022 6.0 Protein, Urine (no units) Date Value 12/03/2022 Negative Urobilinogen (no units) Date Value 12/03/2022 0.2 EU/dL Nitrites (no units) Date Value 12/03/2022 Negative Leuk Esterase (no units) Date Value 12/03/2022 Negative MEDICATIONS: MUCUS-CHEST CONGESTION 100 mg/5 mL syrup chlorthalidone (HYGROTON) 25 mg tablet [facility] [employer] [facility] 10 billion cell -200 mg capsule acetaminophen (TYLENOL) 325 mg tablet Take 650 mg by mouth every 6 hours as needed. losartan (COZAAR) 50 mg tablet Take 50 mg by mouth once daily. magnesium hydroxide (EX-LAX MILK OF MAGNESIA ORAL) Take by mouth. mirtazapine (REMERON) 15 mg tablet Take 15 mg by mouth daily at bedtime. aspirin 81 mg chewable tablet 1 tablet by ORAL/FEEDING TUBE route once daily. atorvastatin (LIPITOR) 40 mg tablet 1 tablet by ORAL/FEEDING TUBE route daily at bedtime. clopidogrel (PLAVIX) 75 mg tablet 1 tablet by ORAL/FEEDING TUBE route once daily for 88 doses. senna-docusate (SENNA-S) 8.6-50 mg per tablet 1 tablet by ORAL/FEEDING TUBE route twice daily. cefdinir (OMNICEF) 300 mg capsule (Patient not taking: Reported on 01/31/2023) polyethylene glycol 3350 17 gram/dose powder Take 17 g by mouth at bedtime as needed. (Patient not taking: Reported on 01/10/2023) hydrALAZINE (APRESOLINE) 50 mg tablet Take 1 tablet by mouth every 8 hours. (Patient not taking: Reported on 12/20/2022) amLODIPine (NORVASC) 10 mg tablet 1 tablet by ORAL/FEEDING TUBE route once daily. (Patient not taking: Reported on 01/10/2023) lactobacillus rhamnosus (CULTURELLE) 10 billion cell capsule Take 1 capsule by mouth once daily. (Patient not taking: Reported on 01/10/2023) REVIEW OF SYSTEMS CONSTITUTIONAL: Patient reports no recent fever or weight loss CARDIOVASCULAR: No chest pain, palpitations or ankle edema. RESPIRATORY: No wheezing, frequent cough or shortness of breath GENITOURINARY: See HPI HISTORIES PAST MEDICAL HISTORY Diagnosis Date Hypertension Intracranial vascular stenosis History reviewed. No pertinent family history. History reviewed. No pertinent surgical history. SOCIAL HISTORY Social History Tobacco Use Smoking status: Never Smokeless tobacco: Never Substance Use Topics Alcohol use: Never Drug use: Never PHYSICAL EXAMINATION General appearance: Well appearing, alert, in no acute distress, well-hydrated, well nourished.. BACK: not examined. MUSCULOSKELETAL: Negative for joint pain or swelling. RESPIRATORY: Normal respiratory effort. SKIN: Normal color, no rash, no lesions.. ASSESSMENT/PLAN: 1. Retention of urine - ICD9: 788.20, ICD10: R33.9 - continue current orders. - f/u in 8 weeks. 2. Urinary tract infection with hematuria, site unspecified - ICD9: 599.0, 599.70, ICD10: N39.0, R31.9 Lashanda Albrecht APRN.ONLINE MARKETING STRATEGIST documented in this encounterBarney [facility]07-10-[facility] History of Past illness Narrative* Problem Noted Date Diagnosed Date Resolved Date Suspected stroke patient las t known to be well 2 to 3 hours ago 11/10/2022 11/10/2022 Stroke of uncertain pathology 11/10/2022 11/10/2022 documented as of this encounter (statuses as of 01/13/2023) [facility]07-10-[facility]23 NoteHNO ID: [id number] Author: Radha Ferreira APRN.ONLINE MARKETING STRATEGIST Service: ? Author Type: Nurse Practitioner Type: Progress Notes Filed: 01/13/2023 11:12 AM Note Text: Connected Care Unit Progress Note Patient Name: Myrna Saravia Patient Facility: [facility] Admit Date 12/09/22 Level of Care: Skilled SNF Attending: Dr. 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) (primary encounter diagnosis) Left basal ganglia, left periventricular infarcts, s/p TNK Continue ASA, clopidogrel (90 days), statin PT/OT/ST Event monitor in place F/u with neurology (R60.0) Leg edema Improving but need to follow general preventative measures DVT US negative Lila wraps to BLE daily, remove at HS Encourage elevation (R29.6) Repeated falls No c/o pain at this time Preventative measures (R33.8) Acute urinary retention Continue with intermittent catheterization Repeat UA/CANDS sent--results to be sent to urology Appointments for Next 60 Days Date Time Provider Location Dept Phone 01/31/2023 1:15 PM LASHANDA ALBRECHT [facility] [phone] 02/03/2023 1:00 PM GRISELDA MURPHY [place] [facility] [phone] 02/13/2023 2:00 PM APURVA BRUNO [facility] [phone] HPI: (Per hospital dc summary) 77-year-old female presented [facility] for acute onset of right upper extremity and right lower extremity weakness. Then was called and she was presented to [facility] where telestroke was called. She had a negative CT scan and the decision was made to give TNK by the stroke neurologist. She was then admitted to the intensive care unit post thrombolytics. Her CTA showed severe focal stenosis of the inferior division of the M2 segment right MCA likely due to noncalcified plaque and moderate to severe focal stenosis of the mid add SPECT of the basilar artery likely due to plaque. MRI showed acute infarct within left periventricular white matter and left basal ganglia. No evidence of associated intracranial hemorrhage. Echo showed EF 69%, grade 1 diastolic dysfunction. Neuro interventional radiology was asked to see her and she underwent a diagnostic cerebral angiogram. There was concern for worsening neuro deficits and patient underwent CT brain x [address] brain was stable and EEG without seizure. 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 She was also started on amlodipine and hydralazine for blood pressure control. She had LE ultrasound that were negative for proximal dvt. She also had R upper extremity ultrasound due to swelling that was also negative for dvt. Patient developed a rash to R arm after the ultrasound gel and tape around her IV sites. This will need monitored. She was seen by ST who recommended regular Consistency, thin Liquids IDDSI Level 0, medications crushed in puree (pudding/applesauce). PT and OT recommended acute rehab and she was discharged once precert obtained. She will need to follow up with her PCP and neurology. Pt was in [facility] from 11/16-12/09. During her stay, she participating with therapy and was started on remeron. Diet advanced. Interval HPI Seen up in recliner. Had another fall yesterday evening. Fell out of wheelchair to floor, landed on buttocks. Pt reports that she had hit her call light and was waiting for assistance but could not wait any longer. Denies any pain at this time. Denies ligthheadedness or dizziness. Asked for help to take her tennis shoes off, requested nonskid socks to be applied. Leg edema improved since last visit, not wearing Lila wraps. Previously, called son to update on 01/10--left VM. Will reattempt contact. PAST MEDICAL HISTORY Diagnosis Date Hypertension Intracranial vascular stenosis SUBJECTIVE: Review of Systems Constitutional: Positive for activity change. Negative for fever. Respiratory: Negative for cough and shortness of breath. Cardiovascular: Positive for leg swelling. Negative for chest pain. Gastrointestinal: Negative for abdominal distention, abdominal pain, constipation, diarrhea and vomiting. Genitourinary: Positive for difficulty urinating. Negative for flank pain, hematuria and pelvic pain. Musculoskeletal: Positive for gait problem. Negative for back pain. Neurological: Positive for facial asymmetry and weakness. Negative for headaches. No reports of changes in cognition/behaviors, or any uncontrolled pain exacerbations. Medications: Medications listed in Epic during SNF admission may not be current. Refer to facility record. Patient records, current medications, most recent labs, family/social history (u (more content not included)...[facility]07-10-[facility] History of Present illness Narrative* Radha Ferreira, DASHA.ONLINE MARKETING STRATEGIST - 01/13/2023 10:56 AM EDT Images from the original note were not included. Connected Care Unit Progress Note Patient Name: Myrna Saravia Patient Facility: [facility] Admit Date 12/09/22 Level of Care: Skilled SNF Attending: Dr. 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) (primary encounter diagnosis) Left basal ganglia, left periventricular infarcts, s/p TNK Continue ASA, clopidogrel (90 days), statin PT/OT/ST Event monitor in place F/u with neurology (R60.0) Leg edema Improving but need to follow general preventative measures DVT US negative Lila wraps to BLE daily, remove at HS Encourage elevation (R29.6) Repeated falls No c/o pain at this time Preventative measures (R33.8) Acute urinary retention Continue with intermittent catheterization Repeat UA/C&S sent--results to be sent to urology Appointments for Next 60 Days Date Time Provider Location Dept Phone 01/31/2023 1:15 PM LASHANDA ALBRECHT [facility] [phone] 02/03/2023 1:00 PM GRISELDA MURPHY [place] [facility] [phone] 02/13/2023 2:00 PM APURVA BRUNO [facility] [phone] HPI: (Per hospital dc summary) 77-year-old female presented [facility] for acute onset of right upper extremity and right lower extremity weakness. Then was called and she was presented to [facility] where telestroke was called. She had a negative CT scan and the decision was made to give TNK by the stroke neurologist. She was then admitted to the intensive care unit post thrombolytics. Her CTA showed severe focal stenosis of the inferior division of the M2 segment rightMCA likely due to noncalcified plaque and moderate to severe focal stenosis of the mid add SPECT ofthe basilar artery likely due to plaque. MRI showed acute infarct within left periventricular white matter and left basal ganglia. No evidence of associated intracranial hemorrhage. Echo showed EF 69%, grade 1 diastolic dysfunction. Neuro interventional radiology was asked to see her and she underwent a diagnostic cerebral angiogram. There was concern for worsening neuro deficits and patient underwent CT brain x [address] brain was stable and EEG without seizure. 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 She was also started on amlodipine and hydralazine for blood pressure control. She had LE ultrasound that were negative for proximal dvt. She also had R upper extremity ultrasound due to swelling that was also negative for dvt. Patient developed a rash to R arm after the ultrasound gel and tape around her IV sites. This will need monitored. She was seen by ST who recommended regular Consistency, thin Liquids IDDSI Level 0, medications crushed in puree (pudding/applesauce). PT and OT recommended acute rehab and she was discharged once precert obtained. She will need to follow up with her PCP and neurology. Pt was in [facility] from 11/16-12/09. During her stay, she participating with therapy and was startedon remeron. Diet advanced. Interval [facility]PI [facility] Had another fall yesterday evening. Fell out of wheelchair to floor, landed onbuttocks. Pt reports that she had hit her call light and was waiting for assistance but could not wait any longer. Denies any pain at this time. Denies ligthheadedness or dizziness. Asked for help totake her tennis shoes off, requested nonskid socks to be applied. Leg edema improved since last visit, not wearing Lila wraps. Previously, called son to update on 01/10--left . Will reattempt contact. PAST MEDICAL HISTORY Diagnosis Date Hypertension Intracranial vascular stenosis SUBJECTIVE: Review of Systems Constitutional: Positive for activity change. Negative for fever. Respiratory: Negative for cough and shortness of breath. Cardiovascular: Positive for leg swelling. Negative for chest pain. Gastrointestinal: Negative for abdominal distention, abdominal pain, constipation, diarrhea and vomiting. Genitourinary: Positive for difficulty urinating. Negative for flank pain, hematuria and pelvic pain. Musculoskeletal: Positive for gait problem. Negative for back pain. Neurological: Positive for facial asymmetry and weakness. Negative for headaches. No reports of changes in cognition/behaviors, or any uncontrolled pain exacerbations. Medications: Medications listed in Epic during SNF admission may not be current. Refer to facility record. Patient records, current medications, most recent labs, family/social history (unchanged) Reviewed.Refer to facility records. OBJECTIVE: Labs/diagnostics: 01/02 Na 141/K 4.3/BUN 29/Cr 1.1 WBC 6.6/Hgb 10.8/Plt 153 6/19 Na 143/K 3.9/BUN 27/Cr 1.0 WBC 5.8/Hgb 11.4/Plt 171 6/8 Na 143/K 4.4/BUN 40/Cr 1.1 WBC 4.8/Hgb 11.4/Plt 188 Vital Signs: BP 110/56 Pulse 80 Temp 36.7 C (98 F) Resp 18 SpO2 96% Physical Exam: Physical Exam Vitals reviewed. Constitutional: General: She is not in acute distress. Appearance: She is not toxic-appearing. HENT: Head: Normocephalic and atraumatic. Mouth/Throat: Mouth: Mucous membranes are moist. Pharynx: Oropharynx is clear. Eyes: General: No scleral icterus. Conjunctiva/sclera: Conjunctivae normal. Cardiovascular: Rate and Rhythm: Normal rate and regular rhythm. Pulses: Normal pulses. Pulmonary: Effort: Pulmonary effort is normal. No respiratory distress. Breath sounds: Examination of the right-lower field reveals decreased breath sounds. Examination ofthe left-lower field reveals decreased breath sounds. Decreased breath sounds present. Abdominal: General: There is no distension. Palpations: Abdomen is soft. Tenderness: There is no abdominal tenderness. There is no right CVA tenderness or left CVA tenderness. Musculoskeletal: General: No tenderness. Cervical back: Neck supple. Lumbar back: No tenderness or bony tenderness. Right lower leg: Edema present. Left lower leg: Edema present. Comments: Trace edema of RUE Skin: General: Skin is warm and dry. Findings: Bruising present. Neurological: Mental Status: She is alert. Motor: Weakness (right hemiplegia) present. Comments: Mild expressive aphasia Psychiatric: Behavior: Behavior is cooperative. POC discussed with appropriate parties and nursing staff. Previous progress note dated 01/02/23 was copied forward, updated where appropriate, and reflective of current medical decision making today, 01/13/2023. Electronically signed by Radha Ferreira APRN.ONLINE MARKETING STRATEGIST documented in this encounterBarney [facility] History of Past illness Narrative* Problem Noted Date Resolved Date Suspected stroke patient las t known to be well 2 to 3 hours ago 11/10/2022 11/10/2022 Stroke of uncertain pathology 11/10/2022 documented as of this encounter (statuses as of 01/10/2023) [facility]07-07-[facility]23 NoteHNO ID: [id number] Author: Lashanda Albrecht APRN.JANICE Service: ? Author Type: Nurse Practitioner Type: Progress Notes Filed: 01/10/2023 2:24 PM Note Text: ESTABLISHED PATIENT OFFICE VISIT HISTORY OF PRESENT ILLNESS Myrna Saravia is a 77 year old female who presents today in f/u. 12/20/22: Patient referred to urology for urinary retention. Patient with a CVA on 11/16/2022. She developed urinary retention after her CVA. She presents today with her daughter. She denies any voiding issues prior to her stroke. She is currently in rehab at [facility] [facility]. She does not want to have a Norton catheter in place at this time. Rehab nurses have been doing straight cath for doing a PVR check every 6 hours. She typically has 500 to 600 cc of urine in her bladder at the time of her straight cath. She did have a positive urine culture on 12/03/2022. She has not been treated for her urinary tract infection. Her daughter states that it is difficult for her to feel her bladder. She denies any UTI symptoms. No gross hematuria. No dysuria. No fever or chills. She was started on Remeron after her CVA, they discontinued it yesterday to see if this is contributing to her urinary retention. We discussed treating her urinary tract infection today. We will continue doing PVR checks and straight caths every 6 hours. Today's note: Patient with a h/o CVA, urinary retention, UTI. She presents today with her daughter in f/u. Patient states she has been able to void on her home in the facility get her up to the bathroom. She was able to void about an hour ago before her appointment, her PVR is 25 cc today. Denies any gross hematuria. No fever or chills. No dysuria. We will continue to do timed voiding and PVR checks. We will ask the facility to do a urine culture. LAB RESULTS Creatinine Date Value Ref Range Status 12/09/2022 0.99 (H) 0.58 - 0.96 mg/dL Final No results found for: PSA Color (no units) Date Value 12/03/2022 Yellow Clarity (no units) Date Value 12/03/2022 Clear Glucose, Urine (no units) Date Value 12/03/2022 Negative Bilirubin, Urine (no units) Date Value 12/03/2022 Negative Ketones, Urine (no units) Date Value 12/03/2022 Negative Specific [place], Ur (no units) Date Value 12/03/2022 >=1.030 Hemoglobin/Blood,Ur (no units) Date Value 12/03/2022 Negative pH, Urine (no units) Date Value 12/03/2022 6.0 Protein, Urine (no units) Date Value 12/03/2022 Negative Urobilinogen (no units) Date Value 12/03/2022 0.2 EU/dL Nitrites (no units) Date Value 12/03/2022 Negative Leuk Esterase (no units) Date Value 12/03/2022 Negative MEDICATIONS: chlorthalidone (HYGROTON) 25 mg tablet [facility] 10 billion cell -200 mg capsule acetaminophen (TYLENOL) 325 mg tablet Take 650 mg by mouth every 6 hours as needed. losartan (COZAAR) 50 mg tablet Take 50 mg by mouth once daily. magnesium hydroxide (EX-LAX MILK OF MAGNESIA ORAL) Take by mouth. mirtazapine (REMERON) 15 mg tablet Take 15 mg by mouth daily at bedtime. aspirin 81 mg chewable tablet 1 tablet by ORAL/FEEDING TUBE route once daily. atorvastatin (LIPITOR) 40 mg tablet 1 tablet by ORAL/FEEDING TUBE route daily at bedtime. clopidogrel (PLAVIX) 75 mg tablet 1 tablet by ORAL/FEEDING TUBE route once daily for 88 doses. senna-docusate (SENNA-S) 8.6-50 mg per tablet 1 tablet by ORAL/FEEDING TUBE route twice daily. polyethylene glycol 3350 17 gram/dose powder Take 17 g by mouth at bedtime as needed. (Patient not taking: Reported on 01/10/2023) hydrALAZINE (APRESOLINE) 50 mg tablet Take 1 tablet by mouth every 8 hours. (Patient not taking: No sig reported) amLODIPine (NORVASC) 10 mg tablet 1 tablet by ORAL/FEEDING TUBE route once daily. (Patient not taking: Reported on 01/10/2023) lactobacillus rhamnosus (CULTURELLE) 10 billion cell capsule Take 1 capsule by mouth once daily. (Patient not taking: Reported on 01/10/2023) REVIEW OF SYSTEMS CONSTITUTIONAL: Patient reports no recent fever or weight loss CARDIOVASCULAR: No chest pain, palpitations or ankle edema. RESPIRATORY: No wheezing, frequent cough or shortness of breath GENITOURINARY: See HPI HISTORIES PAST MEDICAL HISTORY Diagnosis Date Hypertension Intracranial vascular stenosis History reviewed. No pertinent family history. History reviewed. No pertinent surgical history. SOCIAL HISTORY Social History Tobacco Use Smoking status: Never Smokeless tobacco: Never Substance Use Topics Alcohol use: Never Drug use: Never PHYSICAL EXAMINATION General appearance: Well appearing, alert, in no acute distress, well-hydrated, well nourished.. BACK: not examined. MUSCULOSKELETAL: Negative for joint pain or swelling. RESPIRATORY: Normal respiratory effort. SKIN: Normal color, no rash, no lesions.. ASSESSMENT/PLAN: 1. Transient cerebral ischemia, unspecified type - ICD9: 435.9, ICD10: G45.9 2. Retention of urine - ICD (more content not included)...[facility]07-07-2023 Instructions* Patient Instructions* Lashanda Albrecht APRN.ONLINE MARKETING STRATEGIST - 01/10/2023 1:48 PM EDT Orders for alf facility: - Please send a catheterized urine culture today. - Please get patient up to bathroom or commode every 6 hours and bladder scan after voiding. Straight cath for any residual >250cc. - Patient was able to void prior to her visit today, her depends are dry, her PVR is 25cc. - Please have patient void every 6 hours. - Will await culture results, please fax to Urology, we will treat if positive UTI. [phone] fax, attention: Lashanda Albrecht APRN.CNP documented in this encounterBarney [facility]07-[facility] History of Present illness Narrative* Lashanda Albrecht APRN.CNP - 01/10/2023 1:18 PM EDT ESTABLISHED PATIENT OFFICE VISIT HISTORY OF PRESENT ILLNESS Myrna Saravia is a 77 year old female who presents today in f/u. 12/20/22: Patient referred to urology for urinary retention. Patient with a CVA on 11/16/2022. She developed urinary retention after her CVA. She presents today with her daughter. She denies any voiding issues prior to her stroke. She is currently in rehab at [facility]. She does not want to have a Norton catheter in place at this time. Rehab nurses have been doing straight cath for doing a PVR checkevery 6 hours. She typically has 500 to 600 cc of urine in her bladder at the time of her straight cath. She did have a positive urine culture on 12/03/2022. She has not been treated for her urinary tract infection. Her daughter states that it is difficult for her to feel her bladder. She denies any UTI symptoms. No gross hematuria. No dysuria. No fever or chills. She was started on Remeron after her CVA, they discontinued it yesterday to see if this is contributing to her urinary retention. We discussed treating her urinary tract infection today. We will continue doing PVR checks and straightcaths every 6 hours. Today's note: Patient with a h/o CVA, urinary retention, UTI. She presents today with her daughter in f/u. Patient states she has been able to void on her home in the facility get her up to the bathroom. She was able to void about an hour ago before her appointment, her PVR is 25 cc today. Denies any gross hematuria. No fever or chills. No dysuria. We will continue to do timed voiding and PVR checks. We will ask the facility to do a urine culture. LAB RESULTS Creatinine Date Value Ref Range Status 12/09/2022 0.99 (H) 0.58 - 0.96 mg/dL Final No results found for: PSA Color (no units) Date Value 12/03/2022 Yellow Clarity (no units) Date Value 12/03/2022 Clear Glucose, Urine (no units) Date Value 12/03/2022 Negative Bilirubin, Urine (no units) Date Value 12/03/2022 Negative Ketones, Urine (no units) Date Value 12/03/2022 Negative Specific [place], Ur (no units) Date Value 12/03/2022 >=1.030 Hemoglobin/Blood,Ur (no units) Date Value 12/03/2022 Negative pH, Urine (no units) Date Value 12/03/2022 6.0 Protein, Urine (no units) Date Value 12/03/2022 Negative Urobilinogen (no units) Date Value 12/03/2022 0.2 EU/dL Nitrites (no units) Date Value 12/03/2022 Negative Leuk Esterase (no units) Date Value 12/03/2022 Negative MEDICATIONS: chlorthalidone (HYGROTON) 25 mg tablet [employer] [facility] 10 billion cell -200 mg capsule acetaminophen (TYLENOL) 325 mg tablet Take 650 mg by mouth every 6 hours as needed. losartan (COZAAR) 50 mg tablet Take 50 mg by mouth once daily. magnesium hydroxide (EX-LAX MILK OF MAGNESIA ORAL) Take by mouth. mirtazapine (REMERON) 15 mg tablet Take 15 mg by mouth daily at bedtime. aspirin 81 mg chewable tablet 1 tablet by ORAL/FEEDING TUBE route once daily. atorvastatin (LIPITOR) 40 mg tablet 1 tablet by ORAL/FEEDING TUBE route daily at bedtime. clopidogrel (PLAVIX) 75 mg tablet 1 tablet by ORAL/FEEDING TUBE route once daily for 88 doses. senna-docusate (SENNA-S) 8.6-50 mg per tablet 1 tablet by ORAL/FEEDING TUBE route twice daily. polyethylene glycol 3350 17 gram/dose powder Take 17 g by mouth at bedtime as needed. (Patient not taking: Reported on 01/10/2023) hydrALAZINE (APRESOLINE) 50 mg tablet Take 1 tablet by mouth every 8 hours. (Patient not taking: [place] reported) amLODIPine (NORVASC) 10 mg tablet 1 tablet by ORAL/FEEDING TUBE route once daily. (Patient not taking: Reported on 01/10/2023) lactobacillus rhamnosus (CULTURELLE) 10 billion cell capsule Take 1 capsule by mouth once daily. (Patient not taking: Reported on 01/10/2023) REVIEW OF SYSTEMS CONSTITUTIONAL: Patient reports no recent fever or weight loss CARDIOVASCULAR: No chest pain, palpitations or ankle edema. RESPIRATORY: No wheezing, frequent cough or shortness of breath GENITOURINARY: See HPI HISTORIES PAST MEDICAL HISTORY Diagnosis Date Hypertension Intracranial vascular stenosis History reviewed. No pertinent family history. History reviewed. No pertinent surgical history. SOCIAL HISTORY Social History Tobacco Use Smoking status: Never Smokeless tobacco: Never Substance Use Topics Alcohol use: Never Drug use: Never PHYSICAL EXAMINATION General appearance: Well appearing, alert, in no acute distress, well-hydrated, well nourished.. BACK: not examined. MUSCULOSKELETAL: Negative for joint pain or swelling. RESPIRATORY: Normal respiratory effort. SKIN: Normal color, no rash, no lesions.. ASSESSMENT/PLAN: 1. Transient cerebral ischemia, unspecified type - ICD9: 435.9, ICD10: G45.9 2. Retention of urine - ICD9: 788.20, ICD10: R33.9 -Continue timed voiding every 6 hours and PVR checks after. -Straight cath for any PVR greater than 250. -Cath urine culture from facility. -Follow-up in 3 weeks. 3. Urinary tract infection with hematuria, site unspecified - ICD9: 599.0, 599.70, ICD10: N39.0, R31.9 Lashanda Albrecht APRN.JANICE More than half of todays over 40 minute [id number] office visit was spent in counselling/coordination of care documented in this encounterBarney [facility]07-[facility] History of Past illness Narrative* Problem Noted Date Resolved Date Suspected stroke patient las t known to be well 2 to 3 hours ago 11/10/2022 11/10/2022 Stroke of uncertain pathology 11/10/2022 documented as of this encounter (statuses as of 01/09/2023) [facility]07-[facility] Miscellaneous Notes* Patient Education - Kori Degroot RN - 01/08/2023 2:00 PM EDT Pt and daughter educated on event monitor. Stated understanding and able to demonstrate use. documented in this encounterBarney Children'[facility]07-02-2023 History of Past illness Narrative* Problem Noted Date Resolved Date Suspected stroke patient saul cr known to be well 2 to 3 hours ago 11/10/2022 11/10/2022 Stroke of uncertain pathology 11/10/2022 documented as of this encounter (statuses as of 01/06/2023) [facility] NoteHNO ID: [id number] Author: Radha Ferreira APRN.ONLINE MARKETING STRATEGIST Service: ? Author Type: Nurse Practitioner Type: Progress Notes Filed: 01/05/2023 10:29 PM Note Text: Connected Care Unit Progress Note Patient Name: Myrna Saravia Patient Facility: [facility] Admit Date 12/09/22 Level of Care: Skilled SNF Attending: Dr. 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) (primary encounter diagnosis) Left basal ganglia, left periventricular infarcts, s/p TNK Continue ASA, clopidogrel (90 days), statin PT/OT for mobility, strength/endurance, safety awareness, ADLs, and assessment of post-rehab needs F/u with neurology (R47.02) Dysphasia Improving ST following (I10) Benign essential HTN Stable Continue losartan, chlorthalidone Monitor BMP (R33.8) Acute urinary retention Completed 10-day course of macrobid per urology recommendations Continue with intermittent catheterization Notify urology if > 750 cc retained (R60.0) Leg edema DVT US negative Lila wraps to BLE daily, remove at HS Encourage elevation Med changes as above Appointments for Next 60 Days Date Time Provider Location Dept Phone 01/08/2023 2:00 PM [facility] [phone] 01/10/2023 1:00 PM LASHANDA ALBRECHT [facility] [phone] 02/03/2023 1:00 PM GRISELDA MURPHY [phone] 02/13/2023 2:00 PM APURVA BRUNO [facility] [phone] HPI: (Per hospital dc summary) 77-year-old female presented [facility] for acute onset of right upper extremity and right lower extremity weakness. Then was called and she was presented to [facility] where telestroke was called. She had a negative CT scan and the decision was made to give TNK by the stroke neurologist. She was then admitted to the intensive care unit post thrombolytics. Her CTA showed severe focal stenosis of the inferior division of the M2 segment right MCA likely due to noncalcified plaque and moderate to severe focal stenosis of the mid add SPECT of the basilar artery likely due to plaque. MRI showed acute infarct within left periventricular white matter and left basal ganglia. No evidence of associated intracranial hemorrhage. Echo showed EF 69%, grade 1 diastolic dysfunction. Neuro interventional radiology was asked to see her and she underwent a diagnostic cerebral angiogram. There was concern for worsening neuro deficits and patient underwent CT brain x [address] brain was stable and EEG without seizure. 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 She was also started on amlodipine and hydralazine for blood pressure control. She had LE ultrasound that were negative for proximal dvt. She also had R upper extremity ultrasound due to swelling that was also negative for dvt. Patient developed a rash to R arm after the ultrasound gel and tape around her IV sites. This will need monitored. She was seen by ST who recommended regular Consistency, thin Liquids IDDSI Level 0, medications crushed in puree (pudding/applesauce). PT and OT recommended acute rehab and she was discharged once precert obtained. She will need to follow up with her PCP and neurology. Pt was in [facility] from 11/16-12/09. During her stay, she participating with therapy and was started on remeron. Diet advanced. Interval HPI Seen up in wheelchair. Discussed negative thumb xray. BPs stable. No change in leg edema; not wearing lila wraps today. Continues to participate with therapy. PAST MEDICAL HISTORY Diagnosis Date Hypertension Intracranial vascular stenosis SUBJECTIVE: Review of Systems Constitutional: Positive for activity change. Negative for fever. Respiratory: Negative for cough and shortness of breath. Cardiovascular: Positive for leg swelling. Negative for chest pain. Gastrointestinal: Negative for abdominal distention, abdominal pain, constipation, diarrhea and vomiting. Genitourinary: Positive for difficulty urinating. Negative for flank pain, hematuria and pelvic pain. Musculoskeletal: Positive for gait problem. Negative for back pain. Neurological: Positive for facial asymmetry and weakness. Negative for headaches. No reports of changes in cognition/behaviors, or any uncontrolled pain exacerbations. Medications: Medications listed in Epic during SNF admission may not be current. Refer to facility record. Patient records, current medications, most recent labs, family/social history (unchanged) Reviewed. Refer to facility records. OBJECTIVE: Labs/diagnostics: 01/02 Na 141/K 4.3/BUN /Cr 1.1 WBC 6.6/Hgb 10.8/Plt 153 12/23 Na 143/ (more content not included)...[facility]06-29-[facility] History of Present illness Narrative* Radha Ferreira APRN.ONLINE MARKETING STRATEGIST - 01/02/2023 9:38 PM EDT Images from the original note were not included. Connected Care Unit Progress Note Patient Name: Myrna Saravia Patient Facility: [facility] Admit Date 12/09/22 Level of Care: Skilled SNF Attending: Dr. 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) (primary encounter diagnosis) Left basal ganglia, left periventricular infarcts, s/p TNK Continue ASA, clopidogrel (90 days), statin PT/OT for mobility, strength/endurance, safety awareness, ADLs, and assessment of post-rehab needs F/u with neurology (R47.02) Dysphasia Improving ST following (I10) Benign essential HTN Stable Continue losartan, chlorthalidone Monitor BMP (R33.8) Acute urinary retention Completed 10-day course of macrobid per urology recommendations Continue with intermittent catheterization Notify urology if > 750 cc retained (R60.0) Leg edema DVT US negative Lila wraps to BLE daily, remove at HS Encourage elevation Med changes as above Appointments for Next 60 Days Date Time Provider Location Dept Phone 01/08/2023 2:00 PM [facility] [phone] 01/10/2023 1:00 PM LASHANDA ALBRECHT [facility] [phone] 02/03/2023 1:00 PM GUILLERMO GRISELDA Ritchie [facility] [phone] 02/13/2023 2:00 PM APURVA BRUNO [facility] [phone] HPI: (Per hospital dc summary) 77-year-old female presented [facility] for acute onset of right upper extremity and right lower extremity weakness. Then was called and she was presented to [facility] where telestroke was called. She had a negative CT scan and the decision was made to give TNK by the stroke neurologist. She was then admitted to the intensive care unit post thrombolytics. Her CTA showed severe focal stenosis of the inferior division of the M2 segment rightMCA likely due to noncalcified plaque and moderate to severe focal stenosis of the mid add SPECT ofthe basilar artery likely due to plaque. MRI showed acute infarct within left periventricular white matter and left basal ganglia. No evidence of associated intracranial hemorrhage. Echo showed EF 69%, grade 1 diastolic dysfunction. Neuro interventional radiology was asked to see her and she underwent a diagnostic cerebral angiogram. There was concern for worsening neuro deficits and patient underwent CT brain x [address] brain was stable and EEG without seizure. 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 She was also started on amlodipine and hydralazine for blood pressure control. She had LE ultrasound that were negative for proximal dvt. She also had R upper extremity ultrasound due to swelling that was also negative for dvt. Patient developed a rash to R arm after the ultrasound gel and tape around her IV sites. This will need monitored. She was seen by ST who recommended regular Consistency, thin Liquids IDDSI Level 0, medications crushed in puree (pudding/applesauce). PT and OT recommended acute rehab and she was discharged once precert obtained. She will need to follow up with her PCP and neurology. Pt was in [facility] from 11/16-12/09. During her stay, she participating with therapy and was startedon remeron. Diet advanced. Interval HPI Seen up in wheelchair. Discussed negative thumb xray. BPs stable. No change in leg edema; not wearing lila wraps today. Continues to participate with therapy. PAST MEDICAL HISTORY Diagnosis Date Hypertension Intracranial vascular stenosis SUBJECTIVE: Review of Systems Constitutional: Positive for activity change. Negative for fever. Respiratory: Negative for cough and shortness of breath. Cardiovascular: Positive for leg swelling. Negative for chest pain. Gastrointestinal: Negative for abdominal distention, abdominal pain, constipation, diarrhea and vomiting. Genitourinary: Positive for difficulty urinating. Negative for flank pain, hematuria and pelvic pain. Musculoskeletal: Positive for gait problem. Negative for back pain. Neurological: Positive for facial asymmetry and weakness. Negative for headaches. No reports of changes in cognition/behaviors, or any uncontrolled pain exacerbations. Medications: Medications listed in Epic during SNF admission may not be current. Refer to facility record. Patient records, current medications, most recent labs, family/social history (unchanged) Reviewed.Refer to facility records. OBJECTIVE: Labs/diagnostics: 01/02 Na 141/K 4.3/BUN 29/Cr 1.1 WBC 6.6/Hgb 10.8/Plt 153 6/19 Na 143/K 3.9/BUN 27/Cr 1.0 WBC 5.8/Hgb 11.4/Plt 171 6/8 Na 143/K 4.4/BUN 40/Cr 1.1 WBC 4.8/Hgb 11.4/Plt 188 Vital Signs: BP 132/76 Pulse 70 Temp 36.4 C (97.6 F) Resp 18 SpO2 96% Physical Exam: Physical Exam Vitals reviewed. Constitutional: General: She is not in acute distress. Appearance: She is not toxic-appearing. HENT: Head: Normocephalic and atraumatic. Mouth/Throat: Mouth: Mucous membranes are moist. Pharynx: Oropharynx is clear. Eyes: General: No scleral icterus. Conjunctiva/sclera: Conjunctivae normal. Cardiovascular: Rate and Rhythm: Normal rate and regular rhythm. Pulses: Normal pulses. Pulmonary: Effort: Pulmonary effort is normal. No respiratory distress. Breath sounds: Examination of the right-lower field reveals decreased breath sounds. Examination ofthe left-lower field reveals decreased breath sounds. Decreased breath sounds present. Abdominal: General: There is no distension. Palpations: Abdomen is soft. Tenderness: There is no abdominal tenderness. There is no right CVA tenderness or left CVA tenderness. Musculoskeletal: General: No tenderness. Cervical back: Neck supple. Lumbar back: No tenderness or bony tenderness. Right lower leg: Edema present. Left lower leg: Edema present. Comments: Trace edema of RUE Skin: General: Skin is warm and dry. Findings: Bruising present. Neurological: Mental Status: She is alert. Motor: Weakness (right hemiplegia) present. Comments: Mild expressive aphasia Psychiatric: Behavior: Behavior is cooperative. POC discussed with appropriate parties and nursing staff. Previous progress note dated 12/31/22 was copied forward, updated where appropriate, and reflective of current medical decision making today, 01/02/2023. Electronically signed by Radha Ferreira APRN.ONLINE MARKETING STRATEGIST documented in this encounterBarney [facility]-27-[facility]23 NoteHNO ID: [id number] Author: Radha Ferreira APRN.ONLINE MARKETING STRATEGIST Service: ? Author Type: Nurse Practitioner Type: Progress Notes Filed: 01/01/2023 11:20 AM Note Text: Connected Care Unit Progress Note Patient Name: Myrna Saravia Patient Facility: [facility] Admit Date 12/09/22 Level of Care: Skilled SNF Attending: Dr. 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) (primary encounter diagnosis) Left basal ganglia, left periventricular infarcts, s/p TNK Continue ASA, clopidogrel (90 days), statin PT/OT for mobility, strength/endurance, safety awareness, ADLs, and assessment of post-rehab needs F/u with neurology (R47.02) Dysphasia Improving ST following (I10) Benign essential HTN Stable D/c amlodipine 2/2 leg edema Add chlorthalidone 25 mg PO daily Continue losartan Monitor BMP--unknown baseline renal function (R33.8) Acute urinary retention Completed 10-day course of macrobid per urology recommendations Continue with intermittent catheterization Notify urology if > 750 cc retained (R60.0) Leg edema DVT US negative Lila wraps to BLE daily, remove at HS Encourage elevation Med changes as above (M79.644) Pain of right thumb Xray PT/OT Appointments for Next 60 Days Date Time Provider Location Dept Phone 01/08/2023 2:00 PM [facility] [phone] 01/10/2023 1:00 PM LASHANDA ALBRECHT [facility] [phone] 02/03/2023 1:00 PM GRISELDA MURPHY [facility] [phone] 02/13/2023 2:00 PM CODY [facility] [phone] HPI: (Per hospital dc summary) 77-year-old female presented [facility] for acute onset of right upper extremity and right lower extremity weakness. Then was called and she was presented to [facility] where telestroke was called. She had a negative CT scan and the decision was made to give TNK by the stroke neurologist. She was then admitted to the intensive care unit post thrombolytics. Her CTA showed severe focal stenosis of the inferior division of the M2 segment right MCA likely due to noncalcified plaque and moderate to severe focal stenosis of the mid add SPECT of the basilar artery likely due to plaque. MRI showed acute infarct within left periventricular white matter and left basal ganglia. No evidence of associated intracranial hemorrhage. Echo showed EF 69%, grade 1 diastolic dysfunction. Neuro interventional radiology was asked to see her and she underwent a diagnostic cerebral angiogram. There was concern for worsening neuro deficits and patient underwent CT brain x [address] brain was stable and EEG without seizure. 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 She was also started on amlodipine and hydralazine for blood pressure control. She had LE ultrasound that were negative for proximal dvt. She also had R upper extremity ultrasound due to swelling that was also negative for dvt. Patient developed a rash to R arm after the ultrasound gel and tape around her IV sites. This will need monitored. She was seen by ST who recommended regular Consistency, thin Liquids IDDSI Level 0, medications crushed in puree (pudding/applesauce). PT and OT recommended acute rehab and she was discharged once precert obtained. She will need to follow up with her PCP and neurology. Pt was in [facility] from 11/16-12/09. During her stay, she participating with therapy and was started on remeron. Diet advanced. Interval HPI Seen up in wheelchair. C/o pain to right thumb. Pt reports that pain has been present for months but thinks it may be getting worse. Has pain with any attempts at ROM. Note that pt grabbed her thumb with left hand to reposition right arm during visit. Encouraged to reach higher on right forearm for repositioning. Lila wraps have not been applied per pt, none in room to apply at this time. Daughter updated via telephone. Questions regarding medical care and plan answered to her satisfaction. Feelings validated and support provided regarding pt's progress and experience at [facility]. PAST MEDICAL HISTORY Diagnosis Date Hypertension Intracranial vascular stenosis SUBJECTIVE: Review of Systems Constitutional: Positive for activity change. Negative for fever. Respiratory: Negative for cough and shortness of breath. Cardiovascular: Positive for leg swelling. Negative for chest pain. Gastrointestinal: Negative for abdominal distention, abdominal pain, constipation, diarrhea and vomiting. Genitourinary: Positive for difficulty urinating. Negative for flank pain, hematuria and pelvic pain. Musculoskeletal: Positive fo (more content not included)...[facility]06-25-2023 History of Past illness Narrative* Problem Noted Date Resolved Date Suspected stroke patient saul cr known to be well 2 to 3 hours ago 11/10/2022 11/10/2022 Stroke of uncertain pathology 11/10/2022 documented as of this encounter (statuses as of 12/30/2022) [facility]06-[facility] History of Past illness Narrative* Problem Noted Date Resolved Date Suspected stroke patient saul cr known to be well 2 to 3 hours ago 11/10/2022 11/10/2022 Stroke of uncertain pathology 11/10/2022 documented as of this encounter (statuses as of 12/30/2022) [facility]06-24-2023 NoteHNO ID: [id number] Author: Radha Ferreira APRN.JANICE Service: ? Author Type: Nurse Practitioner Type: Progress Notes Filed: 12/29/2022 10:25 PM Note Text: Connected Care Unit Progress Note Patient Name: Myrna Saravia Patient Facility: [facility] Admit Date 12/09/22 Level of Care: Skilled SNF Attending: Dr. 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) (primary encounter diagnosis) Left basal ganglia, left periventricular infarcts, s/p TNK Continue ASA, clopidogrel (90 days), statin PT/OT for mobility, strength/endurance, safety awareness, ADLs, and assessment of post-rehab needs Lila wraps to BLE, US to r/o DVT F/u with neurology (R47.02) Dysphasia Improving ST following (I10) Benign essential HTN Stable Continue amlodipine, losartan Monitor BMP--unknown baseline renal function (F43.23) Adjustment disorder with mixed anxiety and depressed mood Will hold remeron in the setting of acute urinary retention Resume if able (R33.8) Acute urinary retention Continue on 10-day course of macrobid per urology recommendations Continue with intermittent catheterization for decompression Notify urology if > 750 cc retained Appointments for Next 60 Days Date Time Provider Location Dept Phone 01/10/2023 1:00 PM LASHANDA ALBRECHT [facility] [phone] 02/03/2023 1:00 PM GRISELDA MURPHY [place] [phone] 02/13/2023 2:00 PM APURVA BRUNO [facility] [phone] HPI: (Per hospital dc summary) 77-year-old female presented [facility] for acute onset of right upper extremity and right lower extremity weakness. Then was called and she was presented to [facility] where telestroke was called. She had a negative CT scan and the decision was made to give TNK by the stroke neurologist. She was then admitted to the intensive care unit post thrombolytics. Her CTA showed severe focal stenosis of the inferior division of the M2 segment right MCA likely due to noncalcified plaque and moderate to severe focal stenosis of the mid add SPECT of the basilar artery likely due to plaque. MRI showed acute infarct within left periventricular white matter and left basal ganglia. No evidence of associated intracranial hemorrhage. Echo showed EF 69%, grade 1 diastolic dysfunction. Neuro interventional radiology was asked to see her and she underwent a diagnostic cerebral angiogram. There was concern for worsening neuro deficits and patient underwent CT brain x [address] brain was stable and EEG without seizure. 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 She was also started on amlodipine and hydralazine for blood pressure control. She had LE ultrasound that were negative for proximal dvt. She also had R upper extremity ultrasound due to swelling that was also negative for dvt. Patient developed a rash to R arm after the ultrasound gel and tape around her IV sites. This will need monitored. She was seen by ST who recommended regular Consistency, thin Liquids IDDSI Level 0, medications crushed in puree (pudding/applesauce). PT and OT recommended acute rehab and she was discharged once precert obtained. She will need to follow up with her PCP and neurology. Pt was in [facility] from 11/16-12/09. During her stay, she participating with therapy and was started on remeron. Diet advanced. Interval HPI Seen lying in bed. Fell last night in the bathroom. Reports that she was on the toilet and tried to reposition and landed on her right side. Xrays negative for acute fracture. Denies any new pain today. Denies SOB, no hypoxia on RA. BLE edema worsening. PAST MEDICAL HISTORY Diagnosis Date Hypertension Intracranial vascular stenosis SUBJECTIVE: Review of Systems Constitutional: Positive for activity change. Negative for fever. Respiratory: Negative for cough and shortness of breath. Cardiovascular: Positive for leg swelling. Negative for chest pain. Gastrointestinal: Negative for abdominal distention, abdominal pain, constipation, diarrhea and vomiting. Genitourinary: Positive for difficulty urinating. Negative for flank pain, hematuria and pelvic pain. Musculoskeletal: Positive for gait problem. Negative for back pain. Neurological: Positive for facial asymmetry and weakness. Negative for headaches. No reports of changes in cognition/behaviors, or any uncontrolled pain exacerbations. Medications: Medications listed in Epic during SNF admission may not be current. Refer to facility record. Patient records, current medications, most recent labs, family/social history (unchanged) Reviewed. (more content not included)...[facility]06-23-2023 History of Present illness Narrative* Radha Ferreira APRN.ONLINE MARKETING STRATEGIST - 12/27/2022 10:06 PM EDT Images from the original note were not included. Connected Care Unit Progress Note Patient Name: Myrna Saravia Patient Facility: [facility] Admit Date 12/09/22 Level of Care: Skilled SNF Attending: Dr. 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) (primary encounter diagnosis) Left basal ganglia, left periventricular infarcts, s/p TNK Continue ASA, clopidogrel (90 days), statin PT/OT for mobility, strength/endurance, safety awareness, ADLs, and assessment of post-rehab needs Illa wraps to BLE, US to r/o DVT F/u with neurology (R47.02) Dysphasia Improving ST following (I10) Benign essential HTN Stable Continue amlodipine, losartan Monitor BMP--unknown baseline renal function (F43.23) Adjustment disorder with mixed anxiety and depressed mood Will hold remeron in the setting of acute urinary retention Resume if able (R33.8) Acute urinary retention Continue on 10-day course of macrobid per urology recommendations Continue with intermittent catheterization for decompression Notify urology if > 750 cc retained Appointments for Next 60 Days Date Time Provider Location Dept Phone 01/10/2023 1:00 PM LASHANDA ALBRECHT [facility] [phone] 02/03/2023 1:00 PM GRISELDA MURPHY [phone] 02/13/2023 2:00 PM APURVA BRUNO [facility] [phone] HPI: (Per hospital dc summary) 77-year-old female presented [facility] for acute onset of right upper extremity and right lower extremity weakness. Then was called and she was presented to [facility] where telestroke was called. She had a negative CT scan and the decision was made to give TNK by the stroke neurologist. She was then admitted to the intensive care unit post thrombolytics. Her CTA showed severe focal stenosis of the inferior division of the M2 segment rightMCA likely due to noncalcified plaque and moderate to severe focal stenosis of the mid add SPECT ofthe basilar artery likely due to plaque. MRI showed acute infarct within left periventricular white matter and left basal ganglia. No evidence of associated intracranial hemorrhage. Echo showed EF 69%, grade 1 diastolic dysfunction. Neuro interventional radiology was asked to see her and she underwent a diagnostic cerebral angiogram. There was concern for worsening neuro deficits and patient underwent CT brain x [address] brain was stable and EEG without seizure. 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 She was also started on amlodipine and hydralazine for blood pressure control. She had LE ultrasound that were negative for proximal dvt. She also had R upper extremity ultrasound due to swelling that was also negative for dvt. Patient developed a rash to R arm after the ultrasound gel and tape around her IV sites. This will need monitored. She was seen by ST who recommended regular Consistency, thin Liquids IDDSI Level 0, medications crushed in puree (pudding/applesauce). PT and OT recommended acute rehab and she was discharged once precert obtained. She will need to follow up with her PCP and neurology. Pt was in [facility] from 11/16-12/09. During her stay, she participating with therapy and was startedon remeron. Diet advanced. Interval HPI Seen lying in bed. Fell last night in the bathroom. Reports that she was on the toilet and tried toreposition and landed on her right side. Xrays negative for acute fracture. Denies any new pain today. Denies SOB, no hypoxia on RA. BLE edema worsening. PAST MEDICAL HISTORY Diagnosis Date Hypertension Intracranial vascular stenosis SUBJECTIVE: Review of Systems Constitutional: Positive for activity change. Negative for fever. Respiratory: Negative for cough and shortness of breath. Cardiovascular: Positive for leg swelling. Negative for chest pain. Gastrointestinal: Negative for abdominal distention, abdominal pain, constipation, diarrhea and vomiting. Genitourinary: Positive for difficulty urinating. Negative for flank pain, hematuria and pelvic pain. Musculoskeletal: Positive for gait problem. Negative for back pain. Neurological: Positive for facial asymmetry and weakness. Negative for headaches. No reports of changes in cognition/behaviors, or any uncontrolled pain exacerbations. Medications: Medications listed in Epic during SNF admission may not be current. Refer to facility record. Patient records, current medications, most recent labs, family/social history (unchanged) Reviewed.Refer to facility records. OBJECTIVE: Labs/diagnostics: 12/23 Na 143/K 3.9/BUN 27/Cr 1.0 WBC 5.8/Hgb 11.4/Plt 171 12/12 Na 143/K 4.4/BUN 40/Cr 1.1 WBC 4.8/Hgb 11.4/Plt 188 Vital Signs: BP 113/65 Pulse 88 Temp 36.4 C (97.6 F) Resp 16 SpO2 95% Physical Exam: Physical Exam Vitals reviewed. Constitutional: General: She is not in acute distress. Appearance: She is not toxic-appearing. HENT: Head: Normocephalic and atraumatic. Mouth/Throat: Mouth: Mucous membranes are moist. Pharynx: Oropharynx is clear. Eyes: General: No scleral icterus. Conjunctiva/sclera: Conjunctivae normal. Cardiovascular: Rate and Rhythm: Normal rate and regular rhythm. Pulses: Normal pulses. Pulmonary: Effort: Pulmonary effort is normal. No respiratory distress. Breath sounds: Examination of the right-lower field reveals decreased breath sounds. Examination ofthe left-lower field reveals decreased breath sounds. Decreased breath sounds present. Abdominal: General: There is no distension. Palpations: Abdomen is soft. Tenderness: There is no abdominal tenderness. There is no right CVA tenderness or left CVA tenderness. Musculoskeletal: General: No tenderness. Cervical back: Neck supple. Lumbar back: No tenderness or bony tenderness. Right lower leg: Edema present. Left lower leg: Edema present. Comments: Trace edema of RUE Skin: General: Skin is warm and dry. Findings: Bruising present. Neurological: Mental Status: She is alert. Motor: Weakness (right hemiplegia) present. Comments: Mild expressive aphasia Psychiatric: Behavior: Behavior is cooperative. POC discussed with appropriate parties and nursing staff. Previous progress note dated 12/24/22 was copied forward, updated where appropriate, and reflective of current medical decision making today, 12/27/2022. Electronically signed by Radha Ferreira APRN.ONLINE MARKETING STRATEGIST documented in this encounterBarney Children'[facility]06-21-2023 History of Past illness Narrative* Problem Noted Date Resolved Date Suspected stroke patient las t known to be well 2 to 3 hours ago 11/10/2022 11/10/2022 Stroke of uncertain pathology 11/10/2022 documented as of this encounter (statuses as of 12/25/2022) [facility]06-20-2023 NoteHNO ID: [id number] Author: Radha Ferreira APRN.JANICE Service: ? Author Type: Nurse Practitioner Type: Progress Notes Filed: 12/24/2022 10:20 AM Note Text: Connected Care Unit Progress Note Patient Name: Myrna Saravia Patient Facility: [facility] Admit Date 12/09/22 Level of Care: Skilled SNF Attending: Dr. 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) (primary encounter diagnosis) Left basal ganglia, left periventricular infarcts, s/p TNK Continue ASA, clopidogrel (90 days), statin PT/OT for mobility, strength/endurance, safety awareness, ADLs, and assessment of post-rehab needs F/u with neurology (M25.511) Acute pain of right shoulder Stroke-affected side Wearing sling for comfort Pt prefers to continue pain control with PRN tylenol (F43.23) Adjustment disorder with mixed anxiety and depressed mood Resume remeron QHS (R06.02) Shortness of breath Will get a CXR Add IS--educate and encourage use Encourage OOB Appointments for Next 60 Days Date Time Provider Location Dept Phone 01/10/2023 1:00 PM LASHANDA ALBRECHT [facility] [phone] 02/03/2023 1:00 PM GRISELDA MURPHY [phone] 02/13/2023 2:00 PM APURVA BRUNO [facility] [phone] HPI: (Per hospital dc summary) 77-year-old female presented [facility] for acute onset of right upper extremity and right lower extremity weakness. Then was called and she was presented to [facility] where telestroke was called. She had a negative CT scan and the decision was made to give TNK by the stroke neurologist. She was then admitted to the intensive care unit post thrombolytics. Her CTA showed severe focal stenosis of the inferior division of the M2 segment right MCA likely due to noncalcified plaque and moderate to severe focal stenosis of the mid add SPECT of the basilar artery likely due to plaque. MRI showed acute infarct within left periventricular white matter and left basal ganglia. No evidence of associated intracranial hemorrhage. Echo showed EF 69%, grade 1 diastolic dysfunction. Neuro interventional radiology was asked to see her and she underwent a diagnostic cerebral angiogram. There was concern for worsening neuro deficits and patient underwent CT brain x [address] brain was stable and EEG without seizure. 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 She was also started on amlodipine and hydralazine for blood pressure control. She had LE ultrasound that were negative for proximal dvt. She also had R upper extremity ultrasound due to swelling that was also negative for dvt. Patient developed a rash to R arm after the ultrasound gel and tape around her IV sites. This will need monitored. She was seen by ST who recommended regular Consistency, thin Liquids IDDSI Level 0, medications crushed in puree (pudding/applesauce). PT and OT recommended acute rehab and she was discharged once precert obtained. She will need to follow up with her PCP and neurology. Pt was in [facility] from 11/16-12/09. During her stay, she participating with therapy and was started on remeron. Diet advanced. Interval HPI Seen up in wheelchair. Awake and alert. Wearing sling to right arm. Had c/o shoulder pain last night. She is unable to describe pain any further but states that it is not longer present. She does not feel that the sling is helpful but states I will do what I am told. Discussed possible etiologies of shoulder pain on her plegic side. She prefers not to try any new medications and would like to continue with tylenol. States that she felt SOB last night as well--pt thinks it was from the pain. She was lying in bed when feeling these symptoms. Denies cough, CP, or palpitations. Afebrile. Denies SOB or pain at this time. Discussed resuming remeron--pt agreeable. PAST MEDICAL HISTORY Diagnosis Date Hypertension Intracranial vascular stenosis SUBJECTIVE: Review of Systems Constitutional: Positive for activity change. Negative for fever. Respiratory: Negative for cough and shortness of breath. Cardiovascular: Positive for leg swelling. Negative for chest pain. Gastrointestinal: Negative for abdominal distention, abdominal pain, constipation, diarrhea and vomiting. Genitourinary: Positive for difficulty urinating. Negative for flank pain, hematuria and pelvic pain. Musculoskeletal: Positive for gait problem. Negative for back pain. Neurological: Positive for facial asymmetry and weakness. Negative for headaches. No reports of changes in cognition/behaviors, or any uncontrolled pain exacerbatio (more content not included)...[facility]06-20-2023 History of Past illness Narrative* Problem Noted Date Resolved Date Suspected stroke patient las t known to be well 2 to 3 hours ago 11/10/2022 11/10/2022 Stroke of uncertain pathology 11/10/2022 documented as of this encounter (statuses as of 12/24/2022) [facility]06-19-[facility]23 NoteHNO ID: [id number] Author: Radha Ferreira APRN.ONLINE MARKETING STRATEGIST Service: ? Author Type: Nurse Practitioner Type: Progress Notes Filed: 12/23/2022 9:44 PM Note Text: Connected Care Unit Progress Note Patient Name: Myrna Saravia Patient Facility: [facility] Admit Date 12/09/22 Level of Care: Skilled SNF Attending: Dr. 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) (primary encounter diagnosis) Left basal ganglia, left periventricular infarcts, s/p TNK Continue ASA, clopidogrel (90 days), statin PT/OT for mobility, strength/endurance, safety awareness, ADLs, and assessment of post-rehab needs F/u with neurology (R47.02) Dysphasia Improving ST following (I10) Benign essential HTN Stable Continue amlodipine, losartan Monitor BMP--unknown baseline renal function (F43.23) Adjustment disorder with mixed anxiety and depressed mood Will hold remeron in the setting of acute urinary retention Resume if able (R33.8) Acute urinary retention Continue on 10-day course of macrobid per urology recommendations Continue with intermittent catheterization for decompression Notify urology if > 750 cc retained Appointments for Next 60 Days Date Time Provider Location Dept Phone 01/10/2023 1:00 PM VINAY LASHANDA SF [facility] [phone] 02/03/2023 1:00 PM GRISELDA MURPHY [place] [facility] [phone] 02/13/2023 2:00 PM APURVA BRUNO [facility] [phone] HPI: (Per hospital dc summary) 77-year-old female presented [facility] for acute onset of right upper extremity and right lower extremity weakness. Then was called and she was presented to [facility] where telestroke was called. She had a negative CT scan and the decision was made to give TNK by the stroke neurologist. She was then admitted to the intensive care unit post thrombolytics. Her CTA showed severe focal stenosis of the inferior division of the M2 segment right MCA likely due to noncalcified plaque and moderate to severe focal stenosis of the mid add SPECT of the basilar artery likely due to plaque. MRI showed acute infarct within left periventricular white matter and left basal ganglia. No evidence of associated intracranial hemorrhage. Echo showed EF 69%, grade 1 diastolic dysfunction. Neuro interventional radiology was asked to see her and she underwent a diagnostic cerebral angiogram. There was concern for worsening neuro deficits and patient underwent CT brain x [address] brain was stable and EEG without seizure. 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 She was also started on amlodipine and hydralazine for blood pressure control. She had LE ultrasound that were negative for proximal dvt. She also had R upper extremity ultrasound due to swelling that was also negative for dvt. Patient developed a rash to R arm after the ultrasound gel and tape around her IV sites. This will need monitored. She was seen by ST who recommended regular Consistency, thin Liquids IDDSI Level 0, medications crushed in puree (pudding/applesauce). PT and OT recommended acute rehab and she was discharged once precert obtained. She will need to follow up with her PCP and neurology. Pt was in [facility] from 11/16-12/09. During her stay, she participating with therapy and was started on remeron. Diet advanced. Interval HPI Urology recs reviewed. Pt continues to require intermittent straight cath drainage with residual volumes ~ 300 cc, with occasional urinary incontinence. Afebrile. Denies pain. Had a witnessed fall on Friday, lowered to the floor during a transfer due to knees buckling. PAST MEDICAL HISTORY Diagnosis Date Hypertension Intracranial vascular stenosis SUBJECTIVE: Review of Systems Constitutional: Positive for activity change. Negative for fever. Respiratory: Negative for cough and shortness of breath. Cardiovascular: Positive for leg swelling. Negative for chest pain. Gastrointestinal: Negative for abdominal distention, abdominal pain, constipation, diarrhea and vomiting. Genitourinary: Positive for difficulty urinating. Negative for flank pain, hematuria and pelvic pain. Musculoskeletal: Positive for gait problem. Negative for back pain. Neurological: Positive for facial asymmetry and weakness. Negative for headaches. No reports of changes in cognition/behaviors, or any uncontrolled pain exacerbations. Medications: Medications listed in Epic during SNF admission may not be current. Refer to facility record. Patient records, current medications, most recent labs, family/social history (unchanged) Reviewed. Refer to (more content not included)...[facility]06-19-2023 History of Present illness Narrative* Radha Ferreira APRN.ONLINE MARKETING STRATEGIST - 12/23/2022 9:34 PM EDT Images from the original note were not included. Connected Care Unit Progress Note Patient Name: Myrna Saravia Patient Facility: [facility] Admit Date 12/09/22 Level of Care: Skilled SNF Attending: Dr. 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) (primary encounter diagnosis) Left basal ganglia, left periventricular infarcts, s/p TNK Continue ASA, clopidogrel (90 days), statin PT/OT for mobility, strength/endurance, safety awareness, ADLs, and assessment of post-rehab needs F/u with neurology (R47.02) Dysphasia Improving ST following (I10) Benign essential HTN Stable Continue amlodipine, losartan Monitor BMP--unknown baseline renal function (F43.23) Adjustment disorder with mixed anxiety and depressed mood Will hold remeron in the setting of acute urinary retention Resume if able (R33.8) Acute urinary retention Continue on 10-day course of macrobid per urology recommendations Continue with intermittent catheterization for decompression Notify urology if > 750 cc retained Appointments for Next 60 Days Date Time Provider Location Dept Phone 01/10/2023 1:00 PM LASHANDA ALBRECHT [facility] [phone] 02/03/2023 1:00 PM GRISELDA MURPHY [facility] [phone] 02/13/2023 2:00 PM APURVA BRUNO [facility] [phone] HPI: (Per hospital dc summary) 77-year-old female presented [facility] for acute onset of right upper extremity and right lower extremity weakness. Then was called and she was presented to [facility] where telestroke was called. She had a negative CT scan and the decision was made to give TNK by the stroke neurologist. She was then admitted to the intensive care unit post thrombolytics. Her CTA showed severe focal stenosis of the inferior division of the M2 segment rightMCA likely due to noncalcified plaque and moderate to severe focal stenosis of the mid add SPECT ofthe basilar artery likely due to plaque. MRI showed acute infarct within left periventricular white matter and left basal ganglia. No evidence of associated intracranial hemorrhage. Echo showed EF 69%, grade 1 diastolic dysfunction. Neuro interventional radiology was asked to see her and she underwent a diagnostic cerebral angiogram. There was concern for worsening neuro deficits and patient underwent CT brain x [address] brain was stable and EEG without seizure. 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 She was also started on amlodipine and hydralazine for blood pressure control. She had LE ultrasound that were negative for proximal dvt. She also had R upper extremity ultrasound due to swelling that was also negative for dvt. Patient developed a rash to R arm after the ultrasound gel and tape around her IV sites. This will need monitored. She was seen by ST who recommended regular Consistency, thin Liquids IDDSI Level 0, medications crushed in puree (pudding/applesauce). PT and OT recommended acute rehab and she was discharged once precert obtained. She will need to follow up with her PCP and neurology. Pt was in [facility] from 11/16-12/09. During her stay, she participating with therapy and was startedon remeron. Diet advanced. Interval HPI Urology recs reviewed. Pt continues to require intermittent straight cath drainage with residual volumes ~ 300 cc, with occasional urinary incontinence. Afebrile. Denies pain. Had a witnessed fall onFriday, lowered to the floor during a transfer due to knees buckling. PAST MEDICAL HISTORY Diagnosis Date Hypertension Intracranial vascular stenosis SUBJECTIVE: Review of Systems Constitutional: Positive for activity change. Negative for fever. Respiratory: Negative for cough and shortness of breath. Cardiovascular: Positive for leg swelling. Negative for chest pain. Gastrointestinal: Negative for abdominal distention, abdominal pain, constipation, diarrhea and vomiting. Genitourinary: Positive for difficulty urinating. Negative for flank pain, hematuria and pelvic pain. Musculoskeletal: Positive for gait problem. Negative for back pain. Neurological: Positive for facial asymmetry and weakness. Negative for headaches. No reports of changes in cognition/behaviors, or any uncontrolled pain exacerbations. Medications: Medications listed in Epic during SNF admission may not be current. Refer to facility record. Patient records, current medications, most recent labs, family/social history (unchanged) Reviewed.Refer to facility records. OBJECTIVE: Labs/diagnostics: 12/23 Na 143/K 3.9/BUN 27/Cr 1.0 WBC 5.8/Hgb 11.4/Plt 171 12/12 Na 143/K 4.4/BUN 40/Cr 1.1 WBC 4.8/Hgb 11.4/Plt 188 Vital Signs: BP 129/63 Pulse 74 Temp 36.4 C (97.6 F) Resp 18 SpO2 96% Physical Exam: Physical Exam Vitals reviewed. Constitutional: General: She is not in acute distress. Appearance: She is not toxic-appearing. HENT: Head: Normocephalic and atraumatic. Mouth/Throat: Mouth: Mucous membranes are moist. Pharynx: Oropharynx is clear. Eyes: General: No scleral icterus. Conjunctiva/sclera: Conjunctivae normal. Cardiovascular: Rate and Rhythm: Normal rate and regular rhythm. Pulses: Normal pulses. Pulmonary: Effort: Pulmonary effort is normal. No respiratory distress. Breath sounds: Normal breath sounds. Abdominal: General: There is no distension. Palpations: Abdomen is soft. Tenderness: There is no abdominal tenderness. There is no right CVA tenderness or left CVA tenderness. Musculoskeletal: Cervical back: Neck supple. Lumbar back: No tenderness or bony tenderness. Right lower leg: Edema present. Left lower leg: Edema present. Skin: General: Skin is warm and dry. Findings: Bruising present. Neurological: Mental Status: She is alert. Motor: Weakness (right hemiplegia) present. Comments: Mild expressive aphasia Psychiatric: Behavior: Behavior is cooperative. POC discussed with appropriate parties and nursing staff. Previous progress note dated 12/18/22 was copied forward, updated where appropriate, and reflective of current medical decision making today, 12/23/2022. Electronically signed by Radha Ferreira APRN.ONLINE MARKETING STRATEGIST documented in this encounterBarney [facility] NoteHNO ID: [id number] Author: Lashanda Albrecht APRN.JANICE Service: ? Author Type: Nurse Practitioner Type: Progress Notes Filed: 01/10/2023 10:21 AM Note Text: NEW PATIENT HISTORY AND PHYSICAL EXAM HISTORY OF PRESENT ILLNESS Myrna Saravia is a 77 year old female who presents today as a new patient. Patient referred to urology for urinary retention. Patient with a CVA on 11/16/2022. She developed urinary retention after her CVA. She presents today with her daughter. She denies any voiding issues prior to her stroke. She is currently in rehab at [place]. She does not want to have a Norton catheter in place at this time. Rehab nurses have been doing straight cath for doing a PVR check every 6 hours. She typically has 500 to 600 cc of urine in her bladder at the time of her straight cath. She did have a positive urine culture on 12/03/2022. She has not been treated for her urinary tract infection. Her daughter states that it is difficult for her to feel her bladder. She denies any UTI symptoms. No gross hematuria. No dysuria. No fever or chills. She was started on Remeron after her CVA, they discontinued it yesterday to see if this is contributing to her urinary retention. We discussed treating her urinary tract infection today. We will continue doing PVR checks and straight caths every 6 hours. LAB RESULTS Creatinine Date Value Ref Range Status 12/09/2022 0.99 (H) 0.58 - 0.96 mg/dL Final No results found for: PSA Color (no units) Date Value 12/03/2022 Yellow Clarity (no units) Date Value 12/03/2022 Clear Glucose, Urine (no units) Date Value 12/03/2022 Negative Bilirubin, Urine (no units) Date Value 12/03/2022 Negative Ketones, Urine (no units) Date Value 12/03/2022 Negative Specific [place], Ur (no units) Date Value 12/03/2022 >=1.030 Hemoglobin/Blood,Ur (no units) Date Value 12/03/2022 Negative pH, Urine (no units) Date Value 12/03/2022 6.0 Protein, Urine (no units) Date Value 12/03/2022 Negative Urobilinogen (no units) Date Value 12/03/2022 0.2 EU/dL Nitrites (no units) Date Value 12/03/2022 Negative Leuk Esterase (no units) Date Value 12/03/2022 Negative REVIEW OF SYSTEMS GENERAL:No weight loss, malaise or fevers. HEENT:Negative for frequent or significant headaches, No changes in hearing or vision, no nose bleeds or other nasal problems. RESPIRATORY: Negative for cough, wheezing or shortness of breath. CARDIOVASCULAR: Negative for chest pain, leg swelling or palpitations. GASTROINTESTINAL: Negative for abdominal discomfort, blood in stools or black stools or change in bowel habits. GENITOURINARY: See HPI. MEDICATIONS: losartan (COZAAR) 50 mg tablet Take 50 mg by mouth once daily. magnesium hydroxide (EX-LAX MILK OF MAGNESIA ORAL) Take by mouth. aspirin 81 mg chewable tablet 1 tablet by ORAL/FEEDING TUBE route once daily. atorvastatin (LIPITOR) 40 mg tablet 1 tablet by ORAL/FEEDING TUBE route daily at bedtime. clopidogrel (PLAVIX) 75 mg tablet 1 tablet by ORAL/FEEDING TUBE route once daily for 88 doses. amLODIPine (NORVASC) 10 mg tablet 1 tablet by ORAL/FEEDING TUBE route once daily. lactobacillus rhamnosus (CULTURELLE) 10 billion cell capsule Take 1 capsule by mouth once daily. senna-docusate (SENNA-S) 8.6-50 mg per tablet 1 tablet by ORAL/FEEDING TUBE route twice daily. nitrofurantoin monohydrate and macrocrystal (MACROBID) 100 mg capsule Take 1 capsule by mouth twice daily for 10 days. mirtazapine (REMERON) 15 mg tablet Take 15 mg by mouth daily at bedtime. (Patient not taking: Reported on 12/20/2022) hydrALAZINE (APRESOLINE) 50 mg tablet Take 1 tablet by mouth every 8 hours. (Patient not taking: Reported on 12/20/2022) ALLERGIES Allergen Reactions Amoxicillin Other: See Comments Makes her lethargic Ciprofloxacin Mental Status Change Sulfa (Sulfonamide * Mental Status Change HISTORIES PAST MEDICAL HISTORY Diagnosis Date Hypertension Intracranial vascular stenosis History reviewed. No pertinent surgical history. History reviewed. No pertinent family history. SOCIAL HISTORY Social History Tobacco Use Smoking status: Never Smokeless tobacco: Never Substance Use Topics Alcohol use: Never Drug use: Never BP 121/74 Pulse 63 Ht 165.1 cm (5' 5) Wt 75.3 kg (166 lb) SpO2 99% BMI 27.62 kg/m? PHYSICAL EXAM: General Appearance: Well appearing, alert, in no acute distress, well-hydrated, well nourished. Skin: Skin color, texture, turgor normal, no suspicious rashes or lesions. Back: Normal. ASSESSMENT/PLAN: 1. Arterial ischemic stroke, FREIGHT TRUCKER (posterior cerebral artery), left, acute (HCC) - ICD9: 434.91, ICD10: I63.532 2. Retention of urine - ICD9: 788.20, ICD10: R33.9 -Macrobid x10 days sent to rehab pharmacy. -We will continue PVR checks/straight caths every 6 hours. -If PVR/straight cath greater than 750, will discuss placement of a Norton catheter. -Follow-u (more content not included)...[facility]06-15-2023 Instructions* Patient Instructions* Apurva Bruno APRN.CNP - 12/19/2022 12:00 PM EDT Images from the original note were not included. Regarding your visit with Nurse Practitioner Apurva Bruno today at the [facility] we discussed the following: Impression: Acute infarcts left periventricular white matter and left basal ganglia s/p TNK 11/10/22. No significant intracranial atherosclerosis of left anterior circulation per diagnostic cerebral angiogram. 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 Lutz whether or not you need a follow up with her, and their office will contact you if that needs to be scheduled Continue Aspirin + plavix x 90 days, followed by aspirin monotherapy daily for secondary stroke prevention. Repeat lipid panel in 2 months Continue Atorvastatin for secondary stroke prevention and LDL goal below 70. Continue monitoring blood pressure for goal below 130/80. Follow up in 8 weeks -Regular follow up with primary care doctor for health maintenance -Assist ensuring blood pressure and cholesterol are at goal -Screen and manage diabetes -Lifestyle modification -- Establish goals -Diet -Regular Exercise as discussed -Establish weight goals with primary care doctor -Additional stroke reduction measures and stroke warning signs are listed below. Please do not hesitate to call if you have any questions Apurva Bruno CNP Cerebrovascular [place] Nurse Practitioner [place], [place] [address] Office: [phone] Appointments: [phone] Stroke Signs and Symptoms: *Stroke is a medical emergency. Know the warning signs of stroke: Sudden numbness or weakness of the face, arm or leg, especially on one side of the body Sudden confusion, trouble speaking, or understanding Sudden trouble seeing in one eye, or both eyes Sudden trouble walking, dizziness, loss of balance, or coordination Sudden severe headache with no known cause *If you, or someone with you, has one or more of these signs, don't delay! Immediately call 911, [facility] emergency medical services (EMS) number so an ambulance can be sent for you. Also, check the time so that you will know when the symptoms first appeared. It is very important to take immediate action, every second counts. Medical treatment may be available if action is taken early enough. ~~~~~~~~~~~~~~~~~~~~~~~~~~~~~~~~~~~~~~~~~~~~~~~~~~~~~~~~~~~~~~~~~~~~~~~~ General Guidelines to Help Reduce Risk of Recurrent Stroke Blood Pressure -Blood Pressure reduction is recommended for both prevention of recurrent stroke and prevention of other vascular events in persons who have had an ischemic stroke or transient ischemic attack (TIA) and are beyond the first 24 hours. -Several lifestyle modifications have been associated with BP reduction and are a reasonable part of a comprehensive antihypertensive therapy -These modifications include: - salt restriction - weight loss - consumption of a diet rich in fruits, vegetables, and low-fat dairy products - regular aerobic physical activity - limited alcohol consumption Goal: Prehypertension (systolic BP of 120-139 mm Hg or diastolic BP of 80-89 mm Hg): Perform annual BP screening and lifestyle modifications Hypertension: Combine medications with above lifestyle modifications to reach your goal blood pressure as defined above. Monitor your blood pressure at home regularly to ensure you are reaching your goals Diabetes - Maintain good control of diabetes if you have it by working with your primary care physician to adjust medications and lifestyle (diet) modification Cholesterol and Lipid Management - Statin therapy with intensive lipid-lowering effects is recommended to reduce risk of stroke and cardiovascular events among patients with ischemic stroke or TIA who have evidence of atherosclerosis Diet - Limit carbohydrates, saturated and trans fats, sodium, sweets, and red meat - Consume fruits, vegetables, whole grains, low-fat dairy products, skinless poultry, nuts and legumes - Consider the DASH (Dietary Approaches to Stop Hypertension) eating plan - more information: https://www.heart.org/en/healthy-living/healthy-eating/eat-smart/nutrition-basic s/oez-zcie-qcc-lifestyle-recommendations Smoking and Tobacco Use (including e-cigarettes) - Strongly recommend against smoking and tobacco use - Counseling, nicotine products, and oral smoking cessation medications are effective for helping smokers quit Alcohol Consumption - Heavy drinkers should eliminate or reduce their consumption of alcohol. - Persons who continue drinking the following may be reasonable: - less than or equal to 2 drinks/day for men - less than or equal to 1 drink/day for non women Exercise - If capable of engaging in physical activity, at least 40 minutes of moderate to vigorous intensity physical exercise, typically defined as vigorous activity sufficient to break a sweat or noticeably raise heart rate, 3-4 days a week (eg, walking briskly, using an exercise bicycle) may be considered to reduce the risk factors and comorbid conditions that increase the likelihood of recurrent stroke - If disability after ischemic stroke, supervision by a healthcare professional, such as a physicaltherapist or cardiac rehabilitation professional, at least on initiation of an exercise regimen, may be considered Adopted from the [place] [employer] Attack : A Guideline for Healthcare Professionals Fromthe [place] [employer] Guidelines for the Prevention of Stroke in Patients With Stroke or Transient Ischemic - 2013 documented in this encounterBarney [facility]06-15-2023 History of Present illness Narrative* Apurva Bruno APRN.JANICE - 12/19/2022 11:30 AM EDT CEREBROVASCULAR CENTER Established Visit Consultation is requested by: No referring provider defined for this encounter. PCP: Evin Garcia ([facility]) [place] [place] [address] CEREBROVASCULAR HISTORY Myrna Saravia is a 77 year old female presenting for hospital discharge follow up. Admitted to [facility] 11/10-11/16/22. From discharge summary: 77-year-old female presented [facility] for acute onset of right upper extremity and right lower extremity weakness. Then was called and she was presented to [facility] where telestroke was called. She had a negative CT scan and the decision was made to give TNK by the stroke neurologist. She was then admitted to the intensive care unit post thrombolytics. Her CTA showed severe focal stenosis of the inferior division of the M2 segment right MCA likely due to noncalcifiedplaque and moderate to severe focal stenosis of the mid add SPECT of the basilar artery likely due to plaque. MRI showed acute infarct within left periventricular white matter and left basal ganglia.No evidence of associated intracranial hemorrhage. Echo showed EF 69%, grade 1 diastolic dysfunction. Neuro interventional radiology was asked to see her and she underwent a diagnostic cerebral angiogram. There was concern for worsening neuro deficits and patient underwent CT brain x [address] brain was stable and EEG without seizure. 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 She was also started on amlodipine and hydralazine for blood pressure control. She had LE ultrasound that were negative for proximal dvt. She also had R upper extremity ultrasound due to swelling that was also negative for dvt. Patient developed a rash to R arm after the ultrasound gel and tape around her IV sites. This will need monitored. She was seen by ST who recommended regular Consistency, thin Liquids IDDSI Level 0, medications crushed in puree ( pudding/applesauce). PT and OT recommended acute rehab and she was discharged once precert obtained. She will need to follow up with her PCP and neurology. Reason for Visit: stroke Date of Last Event: 11/10/2022 Antiplatelets/Anticoagulants: Aspirin and Clopidogrel Statins: Atorvastatin Side effects: No Refills needed: No Residual Deficits: Right-sided weakness and Aphasia Current PT/OT/ST: Physical therapy at home, Occupational therapy at home and Speech therapy at home Initial Discharge Disposition: IRF Current Living Situation: Extended care Do you have any planned upcoming surgeries or dental procedures? No Office Visit 12/19/22 -presents with her daughter Brooklynn -right sided weakness, aphasia improving -discharged from acute rehab and now in SNF -PT, OT, speech in facility -have not received cardiac event monitor -started Remeron in [place] for mood (crying, bouts of anger) - had been on it for about 3 weeks, but then stopped it a few days ago due to urinary retention and incontinence to see if it would improve. Did not notice any benefit for mood yet. -they want to know if this is a good mood medication for her given her age -last 3 days has had incontinence and has needed straight cath -seeing Urology tomorrow -noting some episodes of paranoia, thinking people are doing bad things to her -her sleep schedule has been very inconsistent - she is up a lot of the night and naps during the day so likely not getting enough sleep -aspirin 81mg + plavix 75mg x 90 days - no bleeding complications -lipitor 40mg - no myalgias or other side effects -BP 110/56 -no new stroke-like symptoms -they were told in the hospital that they need to see Dr. Lutz as well, no appt scheduled yet PAST MEDICAL HISTORY Diagnosis Date Hypertension Intracranial vascular stenosis History reviewed. No pertinent surgical history. History reviewed. No pertinent family history. Social History Tobacco Use Smoking status: Never Smokeless tobacco: Never Substance Use Topics Alcohol use: Never Drug use: Never MEDICATIONS Current Outpatient Medications Medication Sig losartan (COZAAR) 50 mg tablet Take 50 mg by mouth once daily. magnesium hydroxide (EX-LAX MILK OF MAGNESIA ORAL) Take by mouth. mirtazapine (REMERON) 15 mg tablet Take 15 mg by mouth daily at bedtime. aspirin 81 mg chewable tablet 1 tablet by ORAL/FEEDING TUBE route once daily. atorvastatin (LIPITOR) 40 mg tablet 1 tablet by ORAL/FEEDING TUBE route daily at bedtime. clopidogrel (PLAVIX) 75 mg tablet 1 tablet by ORAL/FEEDING TUBE route once daily for 88 doses. hydrALAZINE (APRESOLINE) 50 mg tablet Take 1 tablet by mouth every 8 hours. amLODIPine (NORVASC) 10 mg tablet 1 tablet by ORAL/FEEDING TUBE route once daily. lactobacillus rhamnosus (CULTURELLE) 10 billion cell capsule Take 1 capsule by mouth once daily. senna-docusate (SENNA-S) 8.6-50 mg per tablet 1 tablet by ORAL/FEEDING TUBE route twice daily. No current facility-administered medications for this visit. ALLERGIES ALLERGIES Allergen Reactions Ciprofloxacin Mental Status Change Sulfa (Sulfonamide * Mental Status Change PHYSICAL EXAMINATION BP 110/56 (BP Site: Left Arm, BP Position: Sitting, BP Cuff Size: Large Adult) Pulse 65 Ht 165.1 cm (5' 5) Wt 87.1 kg (192 lb) BMI 31.95 kg/m General: Well-developed, well-nourished, in no acute distress. HEENT: Normocephalic, atraumatic. Sclerae anicteric. Oropharynx clear. Neck: No JVD Heart: Skin well-perfused. Lungs: Breathing comfortably on room air. Extremities: No edema, cyanosis, or clubbing. Skin: No rash or ecchymoses. Neurological: Awake, alert, oriented to person, place, and time. Mild aphasia, no dysarthria. Naming, repetition, recall, comprehension intact. Good attention and insight into illness. Cranial Nerves: PERRL, extraocular movements intact without nystagmus. Visual falcon full. Facial sensation and movements normal and symmetric. Palate elevates equal bilaterally. Tongue midline. Trapezius strength 5/5 bilaterally. Motor: Normal bulk and tone. Right side weakness. Strength 5/5 throughout. No pronator drift or tremor. Sensation: Intact light touch. Coordination: Rapid alternating movements symmetric bilaterally. [id number] without dysmetria bilaterally. Gait: deferred LABS Cholesterol: Cholesterol, Total (mg/dL) Date Value 11/11/2022 163 LDL Cholesterol (mg/dL) Date Value 11/11/2022 96 HDL Cholesterol (mg/dL) Date Value 11/11/2022 54 Triglyceride (mg/dL) Date Value 11/11/2022 65 Diabetes: Hemoglobin A1C (%) Date Value 11/10/[address] 11/10/22 IMPRESSION: No acute findings. No evidence of acute infarction, intracranial hemorrhage or intracranial mass lesion CTA head and neck 11/10/22 IMPRESSION: No evidence of acute large vessel occlusion. Severe focal stenosis of the inferior division of the M2 segment right MCA likely secondary to noncalcified atherosclerotic plaque. Moderate to severe focal stenosis of the mid aspect of the basilar artery, likely secondary to atherosclerotic plaque MRI brain 11/11/22 IMPRESSION: Small acute infarct within left periventricular white matter and left basal ganglia. No evidence of associated intracranial hemorrhage. Susceptibility signal associated with posterior left periventricular white matter with associated T2 hypointensity. No corresponding hyperdense hemorrhage in CT examination. While this most likely represents cavernoma or chronic hemorrhage, possibility of other hemorrhagic lesions should be excluded with postcontrast MRI brain imaging. Echo 11/11/22 CONCLUSIONS: - Technically difficult exam due to suboptimal positioning. - Exam indication: Stroke - The left ventricle is normal in size. There is mild left ventricular hypertrophy. Left ventricular systolic function is normal. EF = 69 5% (2D biplane) Grade I left ventricular diastolic dysfunction. - The right ventricle is normal in size. Right ventricular systolic function is normal. - There are no significant valvular abnormalities. - The patient has not had a prior CC echocardiographic exam for comparison. DSA 11/12/22 FINDINGS: Mid-basilar stenosis approximately 50% with a residual lumen of 1.1 mm, with no significant flow limitation. Right angular M3 branch 60-65% stenosis over a 5 mm segment at its origin, with minimal flow delay No significant intracranial atherosclerotic stenosis of the left anterior circulation Mild atherosclerotic irregularities of bilateral carotid origins without significant stenosis Patient Entered Questionnaires PROMIS/NeuroQoL Score Percentiles Percentiles provide an indication of how a patient's score ranks in relation to the [place] general population. > 31st percentile is within normal limits or better * < 31st percentile is at least SD worse than population, which may be clinically relevant < 16th percentile is at least 1 SD worse than population and warrants attention Depression Screening: PHQ-9 Scores: PHQ-9 Self-Harm (Item 9) Response: 0 - 9 No to Mild depression 0 - Not at all 10 - 14 Moderate depression 1 - Several Days > 15 Severe depression 2 - More than half the days 3 - Nearly every day Stroke Mechanism and Scales Ischemic or TIA: Ischemic Stroke TOAST Mechanism ([facility]-MODIFIED): Stroke of Undetermined Etiology Stroke of Undetermined etiology: Incomplete Evaluation Cerebrovascular Disease w/o Stroke Event: Intracranial Stenosis Modified [place] Score: Score: 4 IMPRESSION Acute infarcts left periventricular white matter and left basal ganglia s/p TNK 11/10/22. No significant intracranial atherosclerosis of left anterior circulation per diagnostic cerebral angiogram. Etiology possibly central embolic. 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 Cardiac event monitor x 30 days Will reach out to Dr. Lutz to see if follow up with her is needed Continue Aspirin + plavix x 90 days, followed by aspirin monotherapy daily for secondary stroke prevention. Continue Atorvastatin for secondary stroke prevention and LDL goal below 70. Repeat fasting lipid panel in 2 months Continue monitoring blood pressure for goal below 130/80. Follow up in 8 weeks Medical Decision Making: Medical Decision Making Level: 1 - N/A I spent a total of 52 minutes on the date of service which included preparing to see the patient, [id number] patient care, completing clinical documentation, obtaining and/or reviewing separately obtained history, performing a medically appropriate examination, counseling and educating the patient/family/caregiver, ordering medications, tests, or procedures, independently interpreting results (not separately reported), communicating results to the patient/family/caregiver, and care coordination (not separately reported) SIGNATURE Apurva Bruno APRN.CNP CC No referring provider defined for this encounter. Evin Garcia (Dorothy) [address] [place] [address] documented in this encounterBarney [facility] NoteHNO ID: [id number] Author: Radha Ferreira APRN.CNP Service: ? Author Type: Nurse Practitioner Type: Progress Notes Filed: 12/18/2022 9:49 AM Note Text: Connected Care Unit Progress Note Patient Name: Myrna Saravia Patient Facility: [facility] Admit Date 12/09/22 Level of Care: Skilled SNF Attending: Dr. 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) (primary encounter diagnosis) Left basal ganglia, left periventricular infarcts, s/p TNK Continue ASA, clopidogrel (90 days), statin PT/OT for mobility, strength/endurance, safety awareness, ADLs, and assessment of post-rehab needs F/u with neurology (R47.02) Dysphasia Improving ST following (I10) Benign essential HTN Stable Continue amlodipine Add losartan Monitor BMP--unknown baseline renal function (F43.23) Adjustment disorder with mixed anxiety and depressed mood Will hold remeron in the setting of acute urinary retention Resume if able (R33.8) Acute urinary retention Unclear etiology, seems unlikely for new neurological deficit to present Will trial holding remeron and hydralazine Continue with intermittent catheterization for decompression Consult to urology UA/CANDS negative Appointments for Next 60 Days Date Time Provider Location Dept Phone 12/19/2022 11:30 AM APURVA BRUNO PO [phone] HPI: (Per hospital dc summary) 77-year-old female presented [facility] for acute onset of right upper extremity and right lower extremity weakness. Then was called and she was presented to [facility] where telestroke was called. She had a negative CT scan and the decision was made to give TNK by the stroke neurologist. She was then admitted to the intensive care unit post thrombolytics. Her CTA showed severe focal stenosis of the inferior division of the M2 segment right MCA likely due to noncalcified plaque and moderate to severe focal stenosis of the mid add SPECT of the basilar artery likely due to plaque. MRI showed acute infarct within left periventricular white matter and left basal ganglia. No evidence of associated intracranial hemorrhage. Echo showed EF 69%, grade 1 diastolic dysfunction. Neuro interventional radiology was asked to see her and she underwent a diagnostic cerebral angiogram. There was concern for worsening neuro deficits and patient underwent CT brain x [address] brain was stable and EEG without seizure. 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 She was also started on amlodipine and hydralazine for blood pressure control. She had LE ultrasound that were negative for proximal dvt. She also had R upper extremity ultrasound due to swelling that was also negative for dvt. Patient developed a rash to R arm after the ultrasound gel and tape around her IV sites. This will need monitored. She was seen by ST who recommended regular Consistency, thin Liquids IDDSI Level 0, medications crushed in puree (pudding/applesauce). PT and OT recommended acute rehab and she was discharged once precert obtained. She will need to follow up with her PCP and neurology. Pt was in [facility] from 11/16-12/09. During her stay, she participating with therapy and was started on remeron. Diet advanced. Interval HPI Seen lying in bed. Continues to require intermittent catheterization for urinary retention. Reviewed options and plan. Pt prefers to continue with intermittent caths versus temporary indwelling catheter. Will refer to urology, nayan to defer if she begins voiding spontaneously prior to appointment. Discussed with daughter via telephone. PAST MEDICAL HISTORY Diagnosis Date Hypertension Intracranial vascular stenosis SUBJECTIVE: Review of Systems Constitutional: Positive for activity change. Negative for fever. Respiratory: Negative for cough and shortness of breath. Cardiovascular: Positive for leg swelling. Negative for chest pain. Gastrointestinal: Negative for abdominal distention, abdominal pain, constipation, diarrhea and vomiting. Genitourinary: Positive for difficulty urinating. Negative for flank pain, hematuria and pelvic pain. Musculoskeletal: Positive for gait problem. Negative for back pain. Neurological: Positive for facial asymmetry and weakness. Negative for headaches. No reports of falls/injuries, changes in cognition/behaviors, or any uncontrolled pain exacerbations. Medications: Medications listed in Epic during SNF admission may not be current. Refer to facility record. Patient records, current medications, most recent labs, family/social history (formerly [facility] (more content not included)...[facility]06-12-2023 NoteHNO ID: [id number] Author: Radha Ferreira APRN.ONLINE MARKETING STRATEGIST Service: ? Author Type: Nurse Practitioner Type: Progress Notes Filed: 12/17/2022 1:09 PM Note Text: Connected Care Unit Progress Note Patient Name: Myrna Saravia Patient Facility: [facility] Admit Date 12/09/22 Level of Care: Skilled SNF Attending: Dr. 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) (primary encounter diagnosis) Left basal ganglia, left periventricular infarcts, s/p TNK Continue ASA, clopidogrel (90 days), statin PT/OT for mobility, strength/endurance, safety awareness, ADLs, and assessment of post-rehab needs F/u with neurology (R47.02) Dysphasia ST following (I10) Benign essential HTN Stable Continue amlodipine, hydralazine Monitor BMP--unknown baseline renal function (F43.23) Adjustment disorder with mixed anxiety and depressed mood Continue remeron (R33.8) Acute urinary retention Bladder scan and straight cath Q6 PRN Send UA/CANDS Appointments for Next 60 Days Date Time Provider Location Dept Phone 12/19/2022 11:30 AM APURVA BRUNO [facility] [phone] HPI: (Per hospital dc summary) 77-year-old female presented [facility] for acute onset of right upper extremity and right lower extremity weakness. Then was called and she was presented to [facility] where telestroke was called. She had a negative CT scan and the decision was made to give TNK by the stroke neurologist. She was then admitted to the intensive care unit post thrombolytics. Her CTA showed severe focal stenosis of the inferior division of the M2 segment right MCA likely due to noncalcified plaque and moderate to severe focal stenosis of the mid add SPECT of the basilar artery likely due to plaque. MRI showed acute infarct within left periventricular white matter and left basal ganglia. No evidence of associated intracranial hemorrhage. Echo showed EF 69%, grade 1 diastolic dysfunction. Neuro interventional radiology was asked to see her and she underwent a diagnostic cerebral angiogram. There was concern for worsening neuro deficits and patient underwent CT brain x [address] brain was stable and EEG without seizure. 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 She was also started on amlodipine and hydralazine for blood pressure control. She had LE ultrasound that were negative for proximal dvt. She also had R upper extremity ultrasound due to swelling that was also negative for dvt. Patient developed a rash to R arm after the ultrasound gel and tape around her IV sites. This will need monitored. She was seen by ST who recommended regular Consistency, thin Liquids IDDSI Level 0, medications crushed in puree (pudding/applesauce). PT and OT recommended acute rehab and she was discharged once precert obtained. She will need to follow up with her PCP and neurology. Pt was in [facility] from 11/16-12/09. During her stay, she participating with therapy and was started on remeron. Diet advanced. Interval HPI Seen lying in bed. Developed issues with urinary retention over the weekend. She was straight cathed overnight for > 400 cc urine. Urine was collected but not sent for UA. She denies currently feeling the need to void but has been dry since 2AM when she was cathed. CASINO CHANGE ATTENDANT in room to assist pt up to toilet. PAST MEDICAL HISTORY Diagnosis Date Hypertension Intracranial vascular stenosis SUBJECTIVE: Review of Systems Constitutional: Positive for activity change. Negative for fever. Respiratory: Negative for cough and shortness of breath. Cardiovascular: Positive for leg swelling. Negative for chest pain. Gastrointestinal: Negative for abdominal distention, abdominal pain, diarrhea and vomiting. Genitourinary: Positive for difficulty urinating. Negative for hematuria and pelvic pain. Musculoskeletal: Positive for gait problem. Neurological: Positive for facial asymmetry and weakness. Negative for headaches. No reports of falls/injuries, changes in cognition/behaviors, or any uncontrolled pain exacerbations. Medications: Medications listed in Epic during SNF admission may not be current. Refer to facility record. Patient records, current medications, most recent labs, family/social history (unchanged) Reviewed. Refer to facility records. OBJECTIVE: Labs/diagnostics: 12/12 Na 143/K 4.4/BUN 40/Cr 1.1 WBC 4.8/Hgb 11.4/Plt 188 Vital Signs: BP 138/62 Pulse 80 Temp 36.4 ?C (97.6 ?F) Resp 18 SpO2 96% Physical Exam: Physical Exam Vitals reviewed. Constitutional: General: She is not in acute (more content not included)...[facility]05-25-2023 NoteHNO ID: [id number] Author: Lucero Barajas PA-C Service: ? Author Type: Physician Hotel Security Officer Type: Progress Notes Filed: 11/28/2022 2:57 PM Note Text: Actionable Findin11/11/22 Brain completed Small acute infarct within left periventricular white matter and left basal ganglia. No evidence of associated intracranial hemorrhage. Susceptibility signal associated with posterior left periventricular white matter with associated T2 hypointensity. No corresponding hyperdense hemorrhage in CT examination. While this most likely represents cavernoma or chronic hemorrhage, possibility of other hemorrhagic lesions should be excluded with postcontrast MRI brain imaging. Follow up CTA brain completed 11/13/22 as recommended. Actionable Finding addressed. [facility] NotePatient Outreach (NSCAM[facility]) MYRNA SARAVIA ([id number]) 1945 F Date Time Provider Department 11/28/22 LUCERO BARAJAS During your visit today, we recorded the following information about you: Lucero Barajas PA-C 11/28/2022 2:57 PM Signed Actionable Findin11/11/22 Brain completed Small acute infarct within left periventricular white matter and left basal ganglia. No evidence of associated intracranial hemorrhage. Susceptibility signal associated with posterior left periventricular white matter with associated T2 hypointensity. No corresponding hyperdense hemorrhage in CT examination. While this most likely represents cavernoma or chronic hemorrhage, possibility of other hemorrhagic lesions should be excluded with postcontrast MRI brain imaging. Follow up CTA brain completed 11/13/22 as recommended. Actionable Finding addressed. Lucero Barajas PA-C Allergies As of Date: 11/28/2022 Noted Allergy Reaction SULFA (SULFONAMIDE ANTIBIOTICS) 11/11/2022 1 - Mental Status Change Date Reviewed: 11/16/2022 Reviewed by: Rosibel Mata RN - Fully Assessed Prescriptions as of 11/28/2022 - aspirin 81 mg chewable tablet 1 tablet by ORAL/FEEDING TUBE route once daily. - atorvastatin (LIPITOR) 40 mg tablet 1 tablet by ORAL/FEEDING TUBE route daily at bedtime. - clopidogrel (PLAVIX) 75 mg tablet 1 tablet by ORAL/FEEDING TUBE route once daily for 88 doses. - hydrALAZINE (APRESOLINE) 50 mg tablet Take 1 tablet by mouth every 8 hours. - amLODIPine (NORVASC) 10 mg tablet 1 tablet by ORAL/FEEDING TUBE route once daily. - lactobacillus rhamnosus (CULTURELLE) 10 billion cell capsule Take 1 capsule by mouth once daily. - senna-docusate (SENNA-S) 8.6-50 mg per tablet 1 tablet by ORAL/FEEDING TUBE route twice daily. 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]11/11/2022 Encounter Status:Closed by LUCERO BARAJAS on 11/28/22[facility] 11-[facility] History of Past illness Narrative* Problem Noted Date Resolved Date Suspected stroke patient las t known to be well 2 to 3 hours ago 11/10/2022 11/10/2022 Stroke of uncertain pathology 11/10/2022 documented as of this encounter (statuses as of 11/10/2022) [facility]05-07-2023 History of Present illness Narrative* Myrna Reyes MD - 11/10/2022 6:04 PM EDT TELESTROKE DOCUMENTATION Name: Myrna Saravia : 1945 Referring Site: [facility] Referring Provider: Dr. Naik Last Known Well (Date/Time): 11/10/22 1000 Neurologist Evaluation (Date/Time): 11/10/22 1141 Chief Complaint: right-sided weakness HPI: 77 year old RH female,While shopping at store, suddenly felt floor was slippery and she developed right-sided weakness Patient has known HTN but has chosen not to take medications for it SBPs in ED > 200, received labetolol, then nicardipine drip for elevated BPs prior to administration of TNK. Stroke Risk Factors Hypertension BP: 214/78 NIHSS Telestroke Type - Patient location (ED or Inpatient): ED - Video Neurologist Performed Total Score: 8 Arrival Date Telestroke Site: 11/10/22 Arrival Time Telestroke Site: 1134 NIHSS Performed Date: 11/10/22 NIHSS Performed Time: 1151 LOC: 0 LOC Questions: 0 LOC Commands: 0 Best Gaze: 0 Visual: 0 Facial Palsy: 1 Motor Left Arm: 0 Motor Right Arm: 4 Motor Left Le Motor Right Le Limb Ataxia: 0 Sensory: 0 Best Language: 0 Dysarthria: 0 Extinction and Inattention: 0 no language impairment Labs Glucose: [address] Imaging reviewed, NO acute infarct/hemorrhage seen CTA Imaging reviewed, NO large vessel occlusion or severe stenosis seen (right M2 and basilar stenosis) Summary Suspected ACUTE ischemic stroke IV Thrombolysis Candidate Window: Last Known Well between 0-4.5 hours IV Thrombolysis Exclusion Criteria: Negative for ALL Exclusion Criteria IV Thrombolysis Additional Exclusion Criteria: Negative for ALL Additional Exclusion Criteria IV Thrombolysis Recommended: Yes, I have explained the reason(s) why I believe the patient is having an acute stroke that would benefit from IV Thrombolysis. I have explained the risks, benefits, andalternatives with the patient and/or the family members. All questions answered. Agreement to proceed with IV Thrombolysis treatment given by: Patient IV Thrombolysis Medication Given: Tenecteplase IV Thrombolysis Bolus (Date) 11/10/22 IV Thrombolysis Bolus (Time) 1212 LKW to IV Thrombolysis (minutes) 132 DOOR to IV Thrombolysis (minutes) 38 Neuro eval to IV Thrombolysis (minutes) 31 Factors impacting time of IV Thrombolysis administration (Select all that apply): Hypertension requiring aggressive control with IV medications Potential Candidate for Endovascular Therapy: No - Negative for evidence of large vessel occlusion Disposition/Billing (Physician is not in the same physical location as the patient) The patient will remain at the referring institution for further evaluation and management I personally completed this evaluation as a staff physician: Yes Video: Minutes spent directly evaluating the patient via teleconferencing, reviewing pertinent diagnostic data, and coordinating care : 30 Video: Case complexity: Simple More than 50 percent of the encounter was spent on coordinating care of the patient during a telestroke. Thank you for contacting the [facility]. I appreciate the opportunity for allowing me to participate in Myrna Saravia's care. Please feel free to contact me and/or the [facility] at any time if you have any further questions or need additional assistance. Myrna Reyes MD November 10, 2022 6:19 PM documented in this encounterBar[facility] History of Past illness Narrative* Problem Noted Date Resolved Date Suspected stroke patient las t known to be well 2 to 3 hours ago 11/10/2022 11/10/2022 Stroke of uncertain pathology 11/10/2022 documented as of this encounter (statuses as of 12/09/2022) [facility] Diagnosis Arterial ischemic stroke (HCC)- Primary Unspecified cerebral artery occlusion with cerebral infarction [facility] Diagnosis 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 Dysphasia Other speech disturbance Benign essential HTN Essential hypertension, benign Adjustment disorder with mixed anxiety and depressed mood Acute urinary retention Other specified retention of urine [facility] Diagnosis Arterial ischemic stroke (HCC)- Primary Unspecified cerebral artery occlusion with cerebral infarction Transient cerebral ischemia, unspecified type Hyperlipidemia, unspecified hyperlipidemia type Intracranial atherosclerosis Cerebral atherosclerosis Mixed hyperlipidemia Adjustment disorder with mixed anxiety and depressed mood Disturbance in sleep behavior Sleep disturbance, unspecified Right hemiparesis (HCC) Hemiplegia, unspecified, affecting unspecified side [facility] OPENED IN ERROR- Primary To allow closing an encounter opened in error (used in SmartSet) documented [facility] this encounter [facility] Diagnosis 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 Dysphasia Other speech disturbance Benign essential HTN Essential hypertension, benign Acute urinary retention Other specified retention of urine Leg edema Edema [facility] Diagnosis Transient cerebral ischemia, unspecified type- Primary Retention of urine Retention of urine, unspecified Urinary tract infection with hematuria, site unspecified [facility] Diagnosis 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 Leg edema Edema Repeated falls Other symptoms involving nervous and musculoskeletal systems Acute urinary retention Other specified retention of urine [facility] Diagnosis Retention of urine- Primary Retention of urine, unspecified Urinary tract infection with hematuria, site unspecified [facility] Diagnosis Esophageal stricture- Primary Stricture and stenosis of esophagus [facility] Diagnosis Arterial ischemic stroke (HCC)- Primary Unspecified cerebral artery occlusion with cerebral infarction Right hemiparesis (HCC) Hemiplegia, unspecified, affecting unspecified side Primary hypertension Unspecified essential hypertension 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 without mention of cerebral infarction Dyslipidemia, goal LDL below 70 Other and unspecified hyperlipidemia documented in this encounter [facility] noteNo assessment information availableWDoctors Hospital Work Phone: Evaluation note* Diagnosis Retention of urine- Primary Retention of urine, unspecified Urinary tract infection with hematuria, site unspecified [facility]* Diagnosis Aphasia as late effect of cerebrovascular accident- Primary Aphasia, late effect of cerebrovascular disease Hemiparesis affecting right side as late effect of cerebrovascular accident (HCC) Hemiplegia affecting unspecified side, late effect of cerebrovascular disease Intracranial atherosclerosis Cerebral atherosclerosis Primary hypertension Unspecified essential hypertension Dyslipidemia, goal LDL below 70 Other and unspecified hyperlipidemia Persistent depressive disorder [facility] Diagnosis Retention of urine- Primary Retention of urine, unspecified Urinary tract infection with hematuria, site unspecified documented in this encounter [facility]* Diagnosis Cerebrovascular accident (CVA), unspecified mechanism (HCC) Hypertension Unspecified essential hypertension Lower extremity edema Edema Stroke of uncertain pathology (HCC) Obesity, Class I, BMI 30-34.9 Obesity, unspecified Aphasia as late effect of cerebrovascular accident- Primary Aphasia, late effect of cerebrovascular disease Hemiparesis affecting right side as late effect of cerebrovascular accident (HCC) Hemiplegia affecting unspecified side, late effect of cerebrovascular disease Intracranial atherosclerosis Cerebral atherosclerosis Primary hypertension Unspecified essential hypertension Dyslipidemia, goal LDL below 70 Other and unspecified hyperlipidemia documented in this encounter [facility] for referral (narrative)No reason for referral information availableWDoctors Hospital Work Phone: Advance Directives No Advanced Directives Records FoundDocuments on File Type Date Recorded 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 Designer Expl 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 Advance Directive(s) 11/12/2022 1:50 PM Date Activated Date Inactivated Comments 11/12/2022 8:25 AM 11/16/2022 8:04 PM Question Answer Comments Full Code Order Discussed With: Patient Latest Code Status on File Code Status Date Activated Date Inactivated Comments Full Code 11/12/2022 8:25 AM 11/16/2022 8:04 PM Full Code Order Discussed With: Patient Latest Code Status on File Code Status Date Activated Date Inactivated Comments Full Code 11/12/2022 8:25 AM 11/16/2022 8:04 PM Question Answer Comments Full Code Order Discussed With: Patient Chief Complaint and Reason for Visit Chief Complaint LAB WORK [facility] LAB WORK Chief Complaint LAB WORK [facility] LAB WORK LABWORK Chief Complaint LAB WORK [facility] LAB WORK [facility] LABWORK [facility] WORK LABWORK Chief Complaint [facility] LABWORK LABWORK [facility] LAB WORK LABWORK [facility] WORK Chief Complaint Admit Date [facility] LAB WORK June 02 5:00am LABWORK August 04, 2024 5 :00am Chief Complaint Admit Date LABWORK August 04, 2024 5 :00am [facility] LAB WORK September 07, 2024 5: 00am Chief Complaint Admit Date LABWORK August 04, 2024 5 :00am [facility] LAB WORK September 07, 2024 5: 00am [facility] LAB WORK October 01, 2024 5 :00am Chief Complaint Admit Date LABWORK August 04, 2024 5 :00am [facility] LAB WORK September 07, 2024 5: 00am [facility] LAB WORK October 01, 2024 5 :00am [facility] LAB WORK October 06, 2024 5: 00am LABWORK November 01, 2024 5:0 0am Summary Purpose Family History No Family History Records FoundNo Family History Records FoundNo Family History Records Found Additional Source Comments Source Comments (unrecognize d section and content) In the event this informatio n is protected by the Federal Confidentiality of Alcohol and Drug Abuse Patient Records regulations: The Federal rules restrict any use of the information to criminally investigate or prosecute any alcohol or drug abuse patient.[facility] Center[facility] the event this information is protected by the Federal Confidentiality of Alcohol and Drug Abuse Patient Records regulations: The Federal rules restrict any use of the information to criminally investigate or prosecute any alcohol or drug abuse patient.[facility] CenterIn the event this information is protected by the Federal Confidentiality of Alcohol and Drug Abuse Patient Records regulations: The Federal rules restrict any use of the information to criminally investigate or prosecute any alcohol or drug abuse patient.[facility] CenterIn the event this information is protected by the Federal Confidentiality of Alcohol and Drug Abuse Patient Records regulations: The Federal rules restrict any use of the information to criminally investigate or prosecute any alcohol or drug abuse patient.[facility] CenterIn the event this information is protected by the Federal Confidentiality of Alcohol and Drug Abuse Patient Records regulations: The Federal rules restrict any use of the information to criminally investigate or prosecute any alcohol or drug abuse patient.[facility] CenterIn the event this information is protected by the Federal Confidentiality of Alcohol and Drug Abuse Patient Records regulations: The Federal rules restrict any use of the information to criminally investigate or prosecute any alcohol or drug abuse patient.[facility] CenterIn the event this information is protected by the Federal Confidentiality of Alcohol and Drug Abuse Patient Records regulations: The Federal rules restrict any use of the information to criminally investigate or prosecute any alcohol or drug abuse patient.[facility] CenterIn the event this information is protected by the Federal Confidentiality of Alcohol and Drug Abuse Patient Records regulations: The Federal rules restrict any use of the information to criminally investigate or prosecute any alcohol or drug abuse patient.[facility] CenterIn the event this information is protected by the Federal Confidentiality of Alcohol and Drug Abuse Patient Records regulations: The Federal rules restrict any use of the information to criminally investigate or prosecute any alcohol or drug abuse patient.[facility] CenterIn the event this information is protected by the Federal Confidentiality of Alcohol and Drug Abuse Patient Records regulations: The Federal rules restrict any use of the information to criminally investigate or prosecute any alcohol or drug abuse patient.[facility] CenterIn the event this information is protected by the Federal Confidentiality of Alcohol and Drug Abuse Patient Records regulations: The Federal rules restrict any use of the information to criminally investigate or prosecute any alcohol or drug abuse patient.[facility] CenterIn the event this information is protected by the Federal Confidentiality of Alcohol and Drug Abuse Patient Records regulations: The Federal rules restrict any use of the information to criminally investigate or prosecute any alcohol or drug abuse patient.[facility] CenterIn the event this information is protected by the Federal Confidentiality of Alcohol and Drug Abuse Patient Records regulations: The Federal rules restrict any use of the information to criminally investigate or prosecute any alcohol or drug abuse patient.[facility] CenterIn the event this information is protected by the Federal Confidentiality of Alcohol and Drug Abuse Patient Records regulations: The Federal rules restrict any use of the information to criminally investigate or prosecute any alcohol or drug abuse patient.[facility] CenterIn the event this information is protected by the Federal Confidentiality of Alcohol and Drug Abuse Patient Records regulations: The Federal rules restrict any use of the information to criminally investigate or prosecute any alcohol or drug abuse patient.[facility] CenterIn the event this information is protected by the Federal Confidentiality of Alcohol and Drug Abuse Patient Records regulations: The Federal rules restrict any use of the information to criminally investigate or prosecute any alcohol or drug abuse patient.[facility] CenterIn the event this information is protected by the Federal Confidentiality of Alcohol and Drug Abuse Patient Records regulations: The Federal rules restrict any use of the information to criminally investigate or prosecute any alcohol or drug abuse patient.[facility] Care Teams (unrecognized sec tion and content) Dam Worker Relationship Specialty Start Date End Date Evin Garcia MD [address] [place] [phone] PCP - General Family Medicine 11/10/22 Dam Worker Relationship Specialty Start Date End Date Evin Garcia MD [address] [place] [phone] PCP - General Family Medicine 11/10/22 Dam Worker Relationship Specialty Start Date End Date Evin Garcia MD [address] [place] [address] PCP - General Family Medicine 11/10/22 Dam Worker Relationship Specialty Start Date End Date Evin Garcia MD [address] [place] [phone] PCP - General Family Medicine 11/10/22 Dam Worker Relationship Specialty Start Date End Date Evin Garcia MD [address] [place] [phone] PCP - General Family Medicine 11/10/22 Dam Worker Relationship Specialty Start Date End Date Evin Garcia MD [address] [place] [phone] PCP - General Family Medicine 11/10/22 Dam Worker Relationship Specialty Start Date End Date Evin Garcia MD [address] [place] [phone] PCP - General Family Medicine 11/10/22 Dam Worker Relationship Specialty Start Date End Date Evin Garcia MD [address] [place] [phone] PCP - General Family Medicine 11/10/22 Dam Worker Relationship Specialty Start Date End Date Evin Garcia MD [address] [place] [phone] PCP - General Family Medicine 11/10/22 Dam Worker Relationship Specialty Start Date End Date Evin Garcia MD [address] [place] [phone] PCP - General Family Medicine 11/10/22 Team Status: Inactive Member Role Status Dates Marcos HAWK Attending Provider, Referring [facility] [place] Active Dr. Marcos Brown MD Primary Care Provider Active Team Status: Active Member Role Status Dates Marcos HAWK Attending Provider Active Team Status: Inactive Member Role Status Dates Marcos HAWK Attending Provider Active Team Status: Inactive Member Role Status Dates Marcos HAWK Attending Provider, Referring Provi sh[place] Active Dam Worker Relationship Specialty Start Date End Date Evin Garcia MD [address] [place] [phone] PCP - General Family Medicine 11/10/22 Dam Worker Relationship Specialty Start Date End Date Evin Garcia MD [address] [place] [phone] PCP - General Family Medicine 11/10/22 Dam Worker Relationship Specialty Start Date End Date Evin Garcia MD [address] [place] [phone] PCP - General Family Medicine 11/10/22 Team Status: Active Member Role Status Dates [facility] Attending Provider Active Start: June 02, 2024 Team Status: Inactive Member Role Status Dates Marcos HAWK Attending Provider Active Sta rt: August 04, 2024 End: August 04, 2024 Team Status: Active Member Role Status Dates [facility] Attending Provider Active Start: September 07, 2024 Team Status: Inactive Member Role Status Dates [facility] Attending Provider Active Start: September 07, 2024 End: September 07, 2024 Team Status: Active Member Role Status Dates Lashanda HAWK MD Attending Provider Active Start: October 01, 2024 Team Status: Inactive Member Role Status Dates Lashanda HAWK MD Attending Provider Active Start: October 01, 2024 End: October 01, 2024 Team Status: Active Member Role Status Dates Lashanda HAWK MD Attending Provider Active Start: October 06, 2024 Team Status: Inactive Member Role Status Dates Lashanda HAWK MD Attending Provider Active Start: October 06, 2024 End: October 06, 2024 Team Status: Active Member Role Status Dates Lashanda HAWK MD Attending Provider Active Start: October 27, 2024 Team Status: Inactive Member Role Status Dates Marcos HAWK Attending Provider Active Sta rt: November 01, 2024 End: November 01, 2024 Team Status: Active Member Role Status Dates Lashanda HAWK MD Attending Provider Active Start: November 08, 2024 Team Status: Active Member Role Status Dates Lashanda HAWK MD Attending Provider Active Start: November 12, 2024 Reason for Visit (unrecogniz ed section and content) Reason Comments Follow Up Reason Comments Follow Up Had a UA and culture after last appointment, treated by alf. Waiting for repeat culture results. Reason Comments Consult Reason Comments Follow Up Was treated for uti per daughter still thinks she still has foul odor, leakage ATB completed couple days ago 7 day course Reason Comments Follow Up Recurrent UTI Goals (unrecognized section and content) Goals may be documented in a n alternate sectionGoals may be documented in an alternate sectionGoals may be documented in an alternate sectionGoals may be documented in an alternate sectionGoals may be documented in an alternate sectionGoals may be documented in an alternate sectionGoals may be documented in an alternate sectionGoals may be documented in an alternate section INFORMATION SOURCE (unrecogn ized section and content) DATE CREATED AUTHOR 11/24/2023 [facility] DATE CREATED AUTHOR AUTHOR'S ORGANIZ ATION 05/15/2024 [facility] DATE CREATED AUTHOR AUTHOR'S ORGANIZ ATION 12/07/2024 [facility] FOR RECORDS PERTAINING TO PATIENTS WHO ARE OR HAVE BEEN ENROLLED IN A CHEMICAL DEPENDENCY/SUBSTANCEABUSE PROGRAM, SOME INFORMATION MAY BE OMITTED. This clinical summary was aggregated from multiple sources. Caution should be exercised in using it in the provision of clinical care. This summary normalizes information from multiple sources, and as a consequence, information in this document may materially change the coding, format and clinical context of patient data. In addition, data may be omitted in some cases. CLINICAL DECISIONS SHOULD BE BASED ON THE PRIMARY CLINICAL RECORDS. [email or web address] provides no warranty or guarantee of the accuracy or completeness of information in this document.
--- OUTSIDE RECORDS SUMMARY | 2024-12-08 04:11 | XMS RPT_ITS | CCD ---
Author Organization [facility] Care Team Providers Care Back Up Machine Operator Name Role Phone Evin Garcia MD Primary Care Provider EVIN GARCIA Primary Care Unavailabl e EVIN GARCIA Referring Unavailabl e VINAY, LASHANDA Attending Unavailable VINAY, LSAHANDA Attending Unavailable EVIN GARCIA Primary Care Unavailabl [...] e APURVA BRUNO Attending Unavailable [facility] Attending Provider Marcos Reddy Attending Provider Unavailab le Katsaros KENN, Marcos Attending Provider Unavailab le [facility] Attending Provider [phone] Lashanda Stone MD Attending Provider Unava ilable Bertha HAWK, Lashanda Attending Unavail able [facility] Attending Elizabethvai Marcos Tilley Attending Unavailable Stephanie HAWK, Marcos Attending Unavailable Stephanie HAWK, Marcos Attending Unavailable Stephanie HAWK, Mracos Attending Unavailable Marcos Reddy Referring Unavailable Marcos Reddy Attending Unavailable Lashanda Covarrubias Attending Unavail able Lashanda Covarrubias Referring Unavail able Stephanie HAWK, Marcos Attending Unavailable Lashanda Covarrubias Attending Unavail able Lashanda Covarrubias Attending Unavail able Lashanda Covarrubias Att[facility] Marcos Melendez Attending Unavailable Allergies Allergy Classification Reported Allergen(s) Allergy Type Date of Onset Reaction(s) Facility (18 sources) Sulfonamides (Antibiotic); Translations: [SULFA (SULFONAMIDE ANTIBIOTICS)] Drug Allergy 3 Mental Status Change [facility] (17 sources) Amoxicillin; Translations: [AMOXICILLIN] Drug Allergy 3 Other: See Comments [facility] (17 sources) Ciprofloxacin; Translations: [CIPROFLOXACIN] Drug Allergy 3 Mental Status Change [facility] Medications Current Medications Medication Drug Class(es) Dates [...] inulin 200 mg / lactobacillus rhamnosus gg [id number] unt oral capsule (9 sources) Start: CULTURELLE DIGESTIVE HEALTH 10 billion cell -200 mg capsule 01/06/2023 Active lactobacillus rhamnosus gg [id number] unt oral capsule (16 sources) Start: take 1 capsule by mouth once daily lactobacillus rhamnosus (CULTURELLE) 10 billion cell capsule Take 1 capsule by mouth once daily. 11/17/2022 Active Comment on above: Take 1 capsule by [facility] once daily. losartan potassium 50 mg oral [...] Comment on above: Take 1 capsule by [facility] twice daily for 10 days. polyethylene glycol [id number] mg powder for oral solution (9 sources) [...] doses. 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 Performed By: #### L 500.2500 #### [facility] [address] [place], [address] Calcium [Mass/Vol] 8.8 mg/dL Normal 7.6-11.0 [facility] Comment on above: Order Comment: . Performed By: #### L 500.2500 #### [facility] [address] [place], [address] Chloride [Moles/Vol] 111 mmol/L High 98-108 [facility] Comment on above: Order Comment: 205.1 Performed By: #### L 500.2500 #### [facility] [address] [place], [address] CO2 [Moles/Vol] 25.3 mmol/L Normal 21.0-32.0 [facility] Comment on above: Order Comment: 205.1 Performed By: #### L 500.2500 #### [facility] [address] [place], [address] Creatinine [Mass/Vol] 1.14 mg/dL Normal 0.70-1.20 [facility] Comment on above: Order Comment: 205.1 Performed By: #### L 500.2500 #### [facility] [address] [place], [address] GAP 6 Normal 5-15 [facility] Comment on above: Order Comment: 205.1 Performed By: #### L 500.2500 #### [facility] [address] [place], [address] GFR/1.73 sq M.predicted among non-blacks MDRD (S/P/Bld) [Vol rate/Area] 48 mL/min/{1.73_m2} Low >60 [facility] Comment on above: Order Comment: 205.1 Result Comment: mL/m in/1.73m2 CKD-EPI Creatinine Equation (2020) Performed By: #### L 500.2500 #### [facility] [address] [place], [address] Glucose [Mass/Vol] 89 mg/dL Normal 70-99 [facility] Comment on above: Order Comment: 205.1 Performed By: #### L 500.2500 #### [facility] [address] [place], [address] Potassium [Moles/Vol] 3.9 mmol/L Normal 3.3-5.1 [facility] Comment on above: Order Comment: 205.1 Performed By: #### L 500.2500 #### [facility] [address] [place], [place], [address] Sodium [Moles/Vol] 142 mmol/L Normal 133-145 [facility] Comment on above: Order Comment: 205.1 Performed By: #### L 500.2500 #### [facility] [address] [place], [address] Urea nitrogen [Mass/Vol] 22 mg/dL High 4-19 [facility] Comment on above: Order Comment: 205.1 Performed By: #### L 500.2500 #### [facility] [address] [place], [address] Carbon dioxide, total [Moles /volume] in Central venous bloodOrdered By: Lashanda Stone on 11-12-2024 CO2 [Moles/Vol] 25.3 mmol/L 21.0-32.0 [facility] Chloride assayOrdered By: Kika Sotne on 11-12-2024 Chloride [Moles/Vol] 111 mmol/L High 98-108 [facility] Glomerular filtration rate ( GFR) estimation/1.73 sq m using serum, plasma, or whole bOrdered By: Lashanda Stone on 11-12-2024 GFR/1.73 sq M.predicted among non-blacks MDRD (S/P/Bld) [Vol rate/Area] 48 mL/min/{1.73_m2} Low >60 [facility] Comment on above: mL/min/1.73m2 CKD-EP I Creatinine Equation (2020) Potassium measurement (mass/ volume)Ordered By: Lashanda Stone on 11-12-2024 Potassium (Unsp spec) [Mass/Vol] 3.9 mmol/L 3.3-5.1 [facility] Serum creatinine measurement (mass/volume)Ordered By: Lashanda Stone on 11-12-2024 Creatinine [Mass/Vol] 1.14 mg/dL 0.70-1.20 [facility] Serum glucose measurement (m ass/volume)Ordered By: Lashanda Stone on 11-12-2024 Glucose [Mass/Vol] 89 mg/dL 70-99 [facility] Serum or plasma calcium thanh urement (mass/volume)Ordered By: Lashanda Stone on 11-12-2024 Calcium [Mass/Vol] 8.8 mg/dL 7.6-11.0 [facility] Serum or plasma urea nitroge n measurement (mass/volume)Ordered By: Lashanda Stone on 11-12-2024 Urea nitrogen [Mass/Vol] 22 mg/dL High 4-19 [facility] Sodium levelOrdered By: Krysten Stnoe on 11-12-2024 Sodium [Moles/Vol] 142 mmol/L 133-145 [facility] Anion gap in Serum or Plasma Ordered By: Lashanda Stone on 11-08-2024 Anion gap [Moles/Vol] 8 mmol/L - [facility] BUN/creatinine ratioOrdered By: Lashanda Stone on 11-08-2024 Urea nitrogen/Creatinine [Mass ratio] 19.5 mg/mg - [facility] Basic Metabolic Profile (BMP )on 11-08-2024 BUN/CRE 19.5 RATIO Normal 04-25 [facility] Comment on above: Order Comment: . Performed By: #### L 500.2500 #### [facility] [address] [place], [place], [id number] GAP 8 Normal - [facility] Comment on above: Order Comment: . Performed By: #### L 500.2500 #### [facility] [address] [place], [address] Potassium [Moles/Vol] 3.8 mmol/L Normal 3.3-5.1 [facility] Comment on above: Order Comment: . Performed By: #### L 500.2500 #### [facility] [address] [place], [address] Carbon dioxide, total [Moles /volume] in Central venous bloodOrdered By: Lashanda Stone on 11-08-2024 CO2 [Moles/Vol] 25.0 mmol/L Normal 21.0-32.0 [facility] Comment on above: Order Comment: 205.1 Performed By: #### L 500.2500 #### [facility] [address] [place], [address] Chloride assayOrdered By: Kika Stone on 11-08-2024 Chloride [Moles/Vol] 109 mmol/L High 98-108 [facility] [place] Comment on above: Order Comment: 205. Performed By: #### L 500.2500 #### [facility] [address], [place], [id number] Glomerular filtration rate ( GFR) estimation/1.73 sq m using serum, plasma, or whole bOrdered By: Lashanda Stone on 11-08-2024 GFR/1.73 sq M.predicted among non-blacks MDRD (S/P/Bld) [Vol rate/Area] 49 mL/min/{1.73_m2} Low >60 [facility] Comment on above: mL/min/1.73m2 CKD-EP I Creatinine Equation (2020) Order Comment: . Result Comment: mL/m in/1.73m2 CKD-EPI Creatinine Equation (2020) Performed By: #### L 500.2500 #### [facility] [address] [place], [place], [id number] Potassium measurement (mass/ volume)Ordered By: Lashanda Stone on 11-08-2024 Potassium (Unsp spec) [Mass/Vol] 3.8 mmol/L 3.3-5.1 [facility] Serum creatinine measurement (mass/volume)Ordered By: Lashanda Stone on 11-08-2024 Creatinine [Mass/Vol] 1.13 mg/dL Normal 0.70-1.20 [facility] Comment on above: Order Comment: 205.1 Performed By: #### L 500.2500 #### [facility] [address] [place], [address] Serum glucose measurement (m ass/volume)Ordered By: Leonelmitul Bertha on 11-08-2024 Glucose [Mass/Vol] 88 mg/dL Normal 70-99 [facility] Comment on above: Order Comment: 205.1 Performed By: #### L 500.2500 #### [facility] [address] [place], [address] Serum or plasma calcium thanh urement (mass/volume)Ordered By: Lashanda Stone on 11-08-2024 Calcium [Mass/Vol] 8.9 mg/dL Normal 7.6-11.0 [facility] Comment on above: Order Comment: 205.1 Performed By: #### L 500.2500 #### [facility] [address] [place], [address] Serum or plasma urea nitroge n measurement (mass/volume)Ordered By: Lashanda Stone on 11-08-2024 Urea nitrogen [Mass/Vol] 22 mg/dL High 4-19 [facility] Comment on above: Order Comment: 205.1 Performed By: #### L 500.2500 #### [facility] [address] [place], [address] Sodium levelOrdered By: Krysten Stone on 11-08-2024 Sodium [Moles/Vol] 142 mmol/L Normal 133-145 [facility] Comment on above: Order Comment: 205.1 Performed By: #### L 500.2500 #### [facility] [address] [place], [place], [id number] Anion gap in Serum or Plasma Ordered By: Marcos Brown on 11-01-2024 Anion gap [Moles/Vol] 10 mmol/L 5-15 [facility] BUN/creatinine ratioOrdered By: Marcos Brown on 11-01-2024 Urea nitrogen/Creatinine [Mass ratio] 25.1 mg/mg High 10-20 [facility] Basic Metabolic Profile (BMP )on 11-01-2024 BUN/CRE 25.1 RATIO High 10-20 [facility] Comment on above: Order Comment: 205.1 Performed By: #### L 500.2500 #### [facility] [address] [place], [address] Calcium [Mass/Vol] 8.9 mg/dL Normal 7.6-11.0 [facility] Comment on above: Order Comment: 205.1 Performed By: #### L 500.2500 #### [facility] [address] [place], [address] Chloride [Moles/Vol] 105 mmol/L Normal 98-108 [facility] Comment on above: Order Comment: 205.1 Performed By: #### L 500.2500 #### [facility] [address] [place], [address] CO2 [Moles/Vol] 25.8 mmol/L Normal 21.0-32.0 [facility] Comment on above: Order Comment: 205.1 Performed By: #### L 500.2500 #### [facility] [address] [place], [address] Creatinine [Mass/Vol] 1.32 mg/dL High 0.70-1.20 [facility] Comment on above: Order Comment: 205.1 Performed By: #### L 500.2500 #### [facility] [address] [place], [address] GAP 10 Normal 5-15 [facility] Comment on above: Order Comment: 205.1 Performed By: #### L 500.2500 #### [facility] [address] [place], [address] GFR/1.73 sq M.predicted among non-blacks MDRD (S/P/Bld) [Vol rate/Area] 41 mL/min/{1.73_m2} Low >60 [facility] Comment on above: Order Comment: 205.1 Result Comment: mL/m in/1.73m2 CKD-EPI Creatinine Equation (2020) Performed By: #### L 500.2500 #### [facility] [address] [place], [address] Glucose [Mass/Vol] 110 mg/dL High 70-99 [facility] Comment on above: Order Comment: 205.1 Performed By: #### L 500.2500 #### [facility] [address] [place], [address] Potassium [Moles/Vol] 3.5 mmol/L Normal 3.3-5.1 [facility] Comment on above: Order Comment: 205.1 Performed By: #### L 500.2500 #### [facility] [address] [place], [address] Sodium [Moles/Vol] 141 mmol/L Normal 133-145 [facility] Comment on above: Order Comment: 205.1 Performed By: #### L 500.2500 #### [facility] [address] [place], [address] Urea nitrogen [Mass/Vol] 33 mg/dL High 4-19 [facility] Comment on above: Order Comment: 205.1 Performed By: #### L 500.2500 #### [facility] [address] [place], [address] Carbon dioxide, total [Moles /volume] in Central venous bloodOrdered By: Marcos Brown on 11-01-2024 CO2 [Moles/Vol] 25.8 mmol/L 21.0-32.0 [facility] Chloride assayOrdered By: Donnie Eugene on 11-01-2024 Chloride [Moles/Vol] 105 mmol/L 98-108 [facility] Glomerular filtration rate ( GFR) estimation/1.73 sq m using serum, plasma, or whole bOrdered By: Marcos Brown on 11-01-2024 GFR/1.73 sq M.predicted among non-blacks MDRD (S/P/Bld) [Vol rate/Area] 41 mL/min/{1.73_m2} Low >60 [facility] Comment on above: mL/min/1.73m2 CKD-EP I Creatinine Equation (2020) Potassium measurement (mass/ volume)Ordered By: Marcos Brown on 11-01-2024 Potassium (Unsp spec) [Mass/Vol] 3.5 mmol/L 3.3-5.1 [facility] Serum creatinine measurement (mass/volume)Ordered By: Marcos Brown on 11-01-2024 Creatinine [Mass/Vol] 1.32 mg/dL High 0.70-1.20 [facility] Serum glucose measurement (m ass/volume)Ordered By: Marcos Brown on 11-01-2024 Glucose [Mass/Vol] 110 mg/dL High 70-99 [facility] Serum or plasma calcium thanh urement (mass/volume)Ordered By: Marcos Brown on 11-01-2024 Calcium [Mass/Vol] 8.9 mg/dL 7.6-11.0 [facility] Serum or plasma urea nitroge n measurement (mass/volume)Ordered By: Marcos Brown on 11-01-2024 Urea nitrogen [Mass/Vol] 33 mg/dL High 4- [facility] Sodium levelOrdered By: Brain Brown on 11-01-2024 Sodium [Moles/Vol] 141 mmol/L 133-145 [facility] Anion gap in Serum or Plasma Ordered By: Lashanda Stone on 10-27-2024 Anion gap [Moles/Vol] 9 mmol/L 5-15 [facility] BUN/creatinine ratioOrdered By: Lashanda Stone on 10-27-2024 Urea nitrogen/Creatinine [Mass ratio] 22.6 mg/mg High - [facility] Basic Metabolic Profile (BMP )on 10-27-2024 BUN/CRE 22.6 RATIO High 04-25 [facility] Comment on above: Order Comment: 205.1 Performed By: #### L 500.6985 #### [facility] [place], [address] Calcium [Mass/Vol] 9.4 mg/dL Normal 7.6-11.0 [facility] Comment on above: Order Comment: 205.1 Performed By: #### L 500.2500 #### [facility] [address] [place], [address] Chloride [Moles/Vol] 99 mmol/L Normal 98-108 [facility] Comment on above: Order Comment: 205.1 Performed By: #### L 500.2500 #### [facility] [address] [place], [address] CO2 [Moles/Vol] 32.3 mmol/L High 21.0-32.0 [facility] Comment on above: Order Comment: . Performed By: #### L 500.2500 #### [facility] [address] [place], [address] Creatinine [Mass/Vol] 1.56 mg/dL High 0.70-1.20 [facility] Comment on above: Order Comment: . Performed By: #### L 500.2500 #### [facility] [address] [place], [address] GAP 9 Normal 5-15 [facility] Comment on above: Order Comment: . Performed By: #### L 500.2500 #### [facility] [address] [place], [address] GFR/1.73 sq M.predicted among non-blacks MDRD (S/P/Bld) [Vol rate/Area] 33 mL/min/{1.73_m2} Low >60 [facility] Comment on above: Order Comment: . Result Comment: mL/m in/1.73m2 CKD-EPI Creatinine Equation (2020) Performed By: #### L 500.2500 #### [facility] [address] [place], [address] Glucose [Mass/Vol] 103 mg/dL High 70-99 [facility] Comment on above: Order Comment: 205.1 Performed By: #### L 500.2500 #### [facility] [address] [place], [address] Potassium [Moles/Vol] 2.9 mmol/L Low 3.3-5.1 [facility] Comment on above: Order Comment: 205.1 Performed By: #### L 500.2500 #### [facility] [address] [place], [address] Sodium [Moles/Vol] 141 mmol/L Normal 133-145 [facility] Comment on above: Order Comment: 205.1 Performed By: #### L 500.2500 #### [facility] [address] [place], [address] Urea nitrogen [Mass/Vol] 35 mg/dL High 4-19 [facility] Comment on above: Order Comment: 205.1 Performed By: #### L 500.2500 #### [facility] [address] [place], [address] Carbon dioxide, total [Moles /volume] in Central venous bloodOrdered By: Lashanda Stone on 10-27-2024 CO2 [Moles/Vol] 32.3 mmol/L High 21.0-32.0 [facility] Chloride assayOrdered By: Kika Stone on 10-27-2024 Chloride [Moles/Vol] 99 mmol/L 98-108 [facility] Glomerular filtration rate ( GFR) estimation/1.73 sq m using serum, plasma, or whole bOrdered By: Lashanda Stone on 10-27-2024 GFR/1.73 sq M.predicted among non-blacks MDRD (S/P/Bld) [Vol rate/Area] 33 mL/min/{1.73_m2} Low >60 [facility] Comment on above: mL/min/1.73m2 CKD-EP I Creatinine Equation (2020) Potassium measurement (mass/ volume)Ordered By: Lashanda Stone on 10-27-2024 Potassium (Unsp spec) [Mass/Vol] 2.9 mmol/L Low 3.3-5.1 [facility] Serum creatinine measurement (mass/volume)Ordered By: Lashanda Stone on 10-27-2024 Creatinine [Mass/Vol] 1.56 mg/dL High 0.70-1.20 [facility] Serum glucose measurement (m ass/volume)Ordered By: Lashanda Stone on 10-27-2024 Glucose [Mass/Vol] 103 mg/dL High 70-99 [facility] Serum or plasma calcium thanh urement (mass/volume)Ordered By: Lashanda Stone on 10-27-2024 Calcium [Mass/Vol] 9.4 mg/dL 7.6-11.0 [facility] Serum or plasma urea nitroge n measurement (mass/volume)Ordered By: Lashanda Stone on 10-27-2024 Urea nitrogen [Mass/Vol] 35 mg/dL High 4-19 [facility] Sodium levelOrdered By: Krysten Stone on 10-27-2024 Sodium [Moles/Vol] 141 mmol/L 133-145 [facility] Anion gap in Serum or Plasma Ordered By: Lashanda Stone on 10-06-2024 Anion gap [Moles/Vol] 11 mmol/L 5-15 [facility] BUN/creatinine ratioOrdered By: Lashanda Stone on 10-06-2024 Urea nitrogen/Creatinine [Mass ratio] 17.3 mg/mg 10-20 [facility] Basic Metabolic Profile (BMP )on 10-06-2024 BUN/CRE 17.3 RATIO Normal - [facility] Comment on above: Order Comment: 205.1 Performed By: #### L 500.2500 #### [facility] [place], [address] Calcium [Mass/Vol] 9.1 mg/dL Normal 7.6-11.0 [facility] Comment on above: Order Comment: 205.1 Performed By: #### L 500.2500 #### [facility] [address] [place], [address] Chloride [Moles/Vol] 104 mmol/L Normal 98-108 [facility] Comment on above: Order Comment: 205.1 Performed By: #### L 500.2500 #### [facility] [address] [place], [address] CO2 [Moles/Vol] 26.3 mmol/L Normal 21.0-32.0 [facility] Comment on above: Order Comment: 205.1 Performed By: #### L 500.2500 #### [facility] [address] [place], [address] Creatinine [Mass/Vol] 1.08 mg/dL Normal 0.70-1.20 [facility] Comment on above: Order Comment: . Performed By: #### L 500.2500 #### [facility] [address] [place], [address] GAP 11 Normal 5-15 [facility] Comment on above: Order Comment: . Performed By: #### L 500.2500 #### [facility] [address] [place], [address] GFR/1.73 sq M.predicted among non-blacks MDRD (S/P/Bld) [Vol rate/Area] 52 mL/min/{1.73_m2} Low >60 [facility] Comment on above: Order Comment: 205.1 Result Comment: mL/m in/1.73m2 CKD-EPI Creatinine Equation (2020) Performed By: #### L 500.2500 #### [facility] [address] [place], [address] Glucose [Mass/Vol] 102 mg/dL High 70-99 [facility] Comment on above: Order Comment: 205.1 Performed By: #### L 500.2500 #### [facility] [address] [place], [place], [address] Potassium [Moles/Vol] 3.2 mmol/L Low 3.3-5.1 [facility] Comment on above: Order Comment: 205.1 Performed By: #### L 500.2500 #### [facility] [address] [place], [place], [id number] Sodium [Moles/Vol] 141 mmol/L Normal 133-145 [facility] Comment on above: Order Comment: 205.1 Performed By: #### L 500.2500 #### [facility] [facility] [address] [place], [place], [id number] Urea nitrogen [Mass/Vol] 19 mg/dL Normal 4-19 [facility] Comment on above: Order Comment: 205.1 Performed By: #### L 500.2500 #### [facility] [address] [place], [place], [id number] Carbon dioxide, total [Moles /volume] in Central venous bloodOrdered By: Lashanda Stone on 10-06-2024 CO2 [Moles/Vol] 26.3 mmol/L 21.0-32.0 [facility] Chloride assayOrdered By: Kika Stone on 10-06-2024 Chloride [Moles/Vol] 104 mmol/L 98-108 [facility] GFR/1.73 sq M.predicted wali g non-blacks MDRD (S/P/Bld) [Vol rate/Area]Ordered By: Lashanda Stone on 10-06-2024 Estimated GFR (MDRD) Non-Af Amer 52 Low >60 [facility] Comment on above: mL/min/1.73m2 CKD-EP I Creatinine Equation (2020) Glomerular filtration rate ( GFR) estimation/1.73 sq m using serum, plasma, or whole bOrdered By: Lashanda Stone on 10-06-2024 GFR/1.73 sq M.predicted among non-blacks MDRD (S/P/Bld) [Vol rate/Area] 52 mL/min/{1.73_m2} Low >60 [facility] Comment on above: mL/min/1.73m2 CKD-EP I Creatinine Equation (2020) Potassium (Unsp spec) [Mass/ Vol]Ordered By: Lashanda Stone on 10-06-2024 Potassium [Moles/Vol] 3.2 mmol/L Low 3.3-5.1 [facility] [place] [facility] Potassium measurement (mass/ volume)Ordered By: Lashanda Stone on 10-06-2024 Potassium (Unsp spec) [Mass/Vol] 3.2 mmol/L Low 3.3-5.1 [facility] Serum creatinine measurement (mass/volume)Ordered By: Lashanda Stone on 10-06-2024 Creatinine [Mass/Vol] 1.08 mg/dL 0.70-1.20 [facility] Serum glucose measurement (m ass/volume)Ordered By: Lashanda Stone on 10-06-2024 Glucose [Mass/Vol] 102 mg/dL High 70-99 [facility] Serum or plasma calcium thanh urement (mass/volume)Ordered By: Lashanda Stone on 10-06-2024 Calcium [Mass/Vol] 9.1 mg/dL 7.6-11.0 [facility] Serum or plasma urea nitroge n measurement (mass/volume)Ordered By: Lashanda Stone on 10-06-2024 Urea nitrogen [Mass/Vol] 19 mg/dL 4-19 [facility] Sodium levelOrdered By: Krysten Stone on 10-06-2024 Sodium [Moles/Vol] 141 mmol/L 133-145 [facility] Anion gap in Serum or Plasma Ordered By: Lashanda Stone on 10-01-2024 Anion gap [Moles/Vol] 11 mmol/L 5-15 [facility] BUN/creatinine ratioOrdered By: Lashanda Stone on 10-01-2024 Urea nitrogen/Creatinine [Mass ratio] 19.2 mg/mg 10-20 [facility] Basic Metabolic Profile (BMP )on 10-01-2024 Chloride [Moles/Vol] 106 mmol/L Normal 98-108 [facility] Comment on above: Order Comment: 205.1 Performed By: #### L 500.2500 #### [facility] [address] [place], [address] GAP 11 Normal 5-15 [facility] Comment on above: Order Comment: 205.1 Performed By: #### L 500.2500 #### [facility] [address] [place], [address] Carbon dioxide, total [Moles /volume] in Central venous bloodOrdered By: Lashanda Stone on 10-01-2024 CO2 [Moles/Vol] 25.7 mmol/L 21.0-32.0 [facility] Chloride assayOrdered By: Kika Stone on 10-01-2024 Chloride [Moles/Vol] 106 mmol/L 98-108 [facility] GFR/1.73 sq M.predicted wali g non-blacks MDRD (S/P/Bld) [Vol rate/Area]Ordered By: Lashanda Stone on 10-01-2024 Estimated GFR (MDRD) Non-Af Amer 47 Low >60 [facility] Comment on above: mL/min/1.73m2 CKD-EP I Creatinine Equation (2020) Glomerular filtration rate ( GFR) estimation/1.73 sq m using serum, plasma, or whole bOrdered By: Lashanda Stone on 10-01-2024 GFR/1.73 sq M.predicted among non-blacks MDRD (S/P/Bld) [Vol rate/Area] 47 mL/min/{1.73_m2} Low >60 [facility] Comment on above: mL/min/1.73m2 CKD-EP I Creatinine Equation (2020) Potassium (Unsp spec) [Mass/ Vol]Ordered By: Lashanda Stone on 10-01-2024 Potassium [Moles/Vol] 3.4 mmol/L 3.3-5.1 [facility] Potassium measurement (mass/ volume)Ordered By: Lashanda Stone on 10-01-2024 Potassium (Unsp spec) [Mass/Vol] 3.4 mmol/L 3.3-5.1 [facility] Serum creatinine measurement (mass/volume)Ordered By: Lashanda Stone on 10-01-2024 Creatinine [Mass/Vol] 1.16 mg/dL 0.70-1.20 [facility] Serum glucose measurement (m ass/volume)Ordered By: Lashanda Stone on 10-01-2024 Glucose [Mass/Vol] 99 mg/dL 70-99 [facility] Serum or plasma calcium thanh urement (mass/volume)Ordered By: Lashanda Stone on 10-01-2024 Calcium [Mass/Vol] 9.0 mg/dL 7.6-11.0 [facility] Serum or plasma urea nitroge n measurement (mass/volume)Ordered By: Lashanda Stone on 10-01-2024 Urea nitrogen [Mass/Vol] 22 mg/dL High 4-19 [facility] Sodium levelOrdered By: Krysten Stone on 10-01-2024 Sodium [Moles/Vol] 142 mmol/L 133-145 [facility] Hemoglobin A1con 09-07-2024 HbA1c (Bld) [Mass fraction] 5.9 % Normal <=5.6 [facility] Comment on above: Order Comment: 205.1 Performed By: #### L 500.2500 #### [facility] [address] [place], [address] Hemoglobin A1c percentageOrd ered By: [facility] on 09-07-2024 HbA1c (Bld) [Mass fraction] 5.9 % >5.7 [facility] Basic Metabolic Profile (BMP )on 08-04-2024 BUN/CRE 26.0 RATIO High 10-20 [facility] Comment on above: Order Comment: 205.1 Performed By: #### L 500.2500 #### [facility] [address] [place], [place], [id number] CA,Total 8.6 mg/dL Normal 8.5-10.1 [facility] Comment on above: Order Comment: 205.1 Performed By: #### L 500.2500 #### [facility] [address] [place], [address] Chloride [Moles/Vol] 111 mmol/L High 98-107 [facility] Comment on above: Order Comment: 205. Performed By: #### L 500.2500 #### [facility] [address] [place], [address] CO2 [Moles/Vol] 23.0 mmol/L Normal 21.0-32.0 [facility] Comment on above: Order Comment: . Performed By: #### L 500.2500 #### [facility] [address] [place], [address] Creatinine [Mass/Vol] 0.96 mg/dL Normal 0.55-1.02 [facility] Comment on above: Order Comment: .1 Result Comment: The validity of the calculated GFR GFRAA in patients over 70 years has not been determined. Clinical correlation is essential. Performed By: #### L 500.2500 #### [facility] [address] [place], [address] EST GFR - AA 72 mL/min Normal >60 [facility] Comment on above: Order Comment: .1 Result Comment: Afri can Azerbaijani GFR Calc Performed By: #### L 500.2500 #### [facility] [address] [place], [address] GAP 9 Normal 5-15 [facility] Comment on above: Order Comment: . Performed By: #### L 500.2500 #### [facility] [address] [place], [address] GFR/1.73 sq M.predicted among non-blacks MDRD (S/P/Bld) [Vol rate/Area] 59 mL/min/{1.73_m2} Low >60 [facility] Comment on above: Order Comment: .1 Result Comment: Non- GFR Calc Performed By: #### L 500.2500 #### [facility] [address] [place], [address] Glucose [Mass/Vol] 104 mg/dL Normal 74-106 [facility] Comment on above: Order Comment: 205.1 Result Comment: Fast ing Glucose result from 100 to 125 mg/dL suggests IMPAIRED HOMEOSTASIS per A.D.A. criteria. Performed By: #### L 500.2500 #### [facility] [address] [place], [address] Potassium [Moles/Vol] 3.7 mmol/L Normal 3.5-5.1 [facility] Comment on above: Order Comment: 205.1 Performed By: #### L 500.2500 #### [facility] [address] [place], [address] Sodium [Moles/Vol] 142 mmol/L Normal 136-145 [facility] Comment on above: Order Comment: 205.1 Performed By: #### L [id number] #### [facility] [address] [place], [address] Urea nitrogen [Mass/Vol] 25 mg/dL High 7-18 [facility] Comment on above: Order Comment: 205.1 Performed By: #### L 500.2500 #### [facility] [address] [place], [address] Blood urea nitrogen (BUN)/cr eatinine ratioOrdered By: Marcos Brown on 08-04-2024 Urea nitrogen/Creatinine [Mass ratio] 26.0 mg/mg High 10-20 [facility] Carbon dioxide measurementOr dered By: Marcos Brown on 08-04-2024 CO2 [Moles/Vol] 23.0 mmol/L 21.0-32.0 [facility] Chloride measurementOrdered By: Marcos Brown on 08-04-2024 Chloride [Moles/Vol] 111 mmol/L High 98-107 [facility] Estimated glomerular filtrat ion rate (GFR) AmericanOrdered By: Marcos Brown on 08-04-2024 Estimated GFR (MDRD) Amer 72 mL/min >60 [facility] Comment on above: GFR Calc Glomerular filtration rate ( GFR) estimationOrdered By: Marcos Brown on 08-04-2024 Estimated GFR (MDRD) Non-Af Amer 59 mL/min Low >60 [facility] Comment on above: Non- GFR Calc GFR/1.73 sq M.predicted among non-blacks MDRD (S/P/Bld) [Vol rate/Area] 59 mL/min/{1.73_m2} Low >60 [facility] Comment on above: Non- GFR Calc Glucose measurementOrdered B y: Marcos Brown on 08-04-2024 Glucose [Mass/Vol] 104 mg/dL 74-106 [facility] Comment on above: Fasting Glucose resu lt from 100 to 125 mg/dL suggests IMPAIRED HOMEOSTASIS per A.D.A. criteria. Potassium measurementOrdered By: Marcos Brown on 08-04-2024 Potassium [Moles/Vol] 3.7 mmol/L 3.5-5.1 [facility] Serum anion gap measurementO rdered By: Marcos Brown on 08-04-2024 Anion gap [Moles/Vol] 9 mmol/L 5-15 [facility] Serum or plasma calcium thanh urement (mass/volume)Ordered By: Marcos Brown on 08-04-2024 Calcium [Mass/Vol] 8.6 mg/dL 8.5-10.1 [facility] Serum or plasma creatinine m easurement (mass/volume)Ordered By: Marcos Brown on 08-04-2024 Creatinine [Mass/Vol] 0.96 mg/dL 0.55-1.02 [facility] Comment on above: The validity of the calculated GFR & GFRAA in patients over 70 years has not been determined. Clinical correlation is essential. Serum or plasma urea nitroge n measurement (mass/volume)Ordered By: Marcos Brown on 08-04-2024 Urea nitrogen [Mass/Vol] 25 mg/dL High 7-18 [facility] Sodium levelOrdered By: Brain Brown on 08-04-2024 Sodium [Moles/Vol] 142 mmol/L 136-145 [facility] Basic Metabolic Profile (BMP )on 06-02-2024 BUN/CRE 25.5 RATIO High 10-20 [facility] Comment on above: Order Comment: 205.1 Performed By: #### L 500.2500 #### [facility] [address] [place], [address] CA,Total 8.2 mg/dL Low 8.5-10.1 [facility] Comment on above: Order Comment: 205.1 Performed By: #### L 500.2500 #### [facility] [address] [place], [address] Chloride [Moles/Vol] 113 mmol/L High 98-107 [facility] Comment on above: Order Comment: 205.1 Performed By: #### L 500.2500 #### [facility] [address] [place], [address] CO2 [Moles/Vol] 28.0 mmol/L Normal 21.0-32.0 [facility] Comment on above: Order Comment: 205.1 Performed By: #### L 500.2500 #### [facility] [address] [place], [address] Creatinine [Mass/Vol] 1.02 mg/dL Normal 0.55-1.02 [facility] Comment on above: Order Comment: 205.1 Result Comment: The validity of the calculated GFR GFRAA in patients over 70 years has not been determined. Clinical correlation is essential. Performed By: #### L 500.2500 #### [facility] [address] [place], [address] EST GFR - AA 67 mL/min Normal >60 [facility] Comment on above: Order Comment: 205.1 Result Comment: Afri can Azerbaij[place] GFR Calc Performed By: #### L 500.2500 #### [facility] [address] [place], [address] GAP 2 Low 5-15 [facility] Comment on above: Order Comment: 205.1 Performed By: #### L 500.2500 #### [facility] [address] [place], [address] GFR/1.73 sq M.predicted among non-blacks MDRD (S/P/Bld) [Vol rate/Area] 55 mL/min/{1.73_m2} Low >60 [facility] Comment on above: Order Comment: 205.1 Result Comment: Non- GFR Calc Performed By: #### L 500.2500 #### [facility] [address] [place], [address] Glucose [Mass/Vol] 94 mg/dL Normal 74-106 [facility] Comment on above: Order Comment: 205.1 Performed By: #### L [id number] #### [facility] [address] [place], [address] Potassium [Moles/Vol] 3.5 mmol/L Normal 3.5-5.1 [facility] Comment on above: Order Comment: 205.1 Performed By: #### L [id number] #### [facility] [address] [place], [address] Sodium [Moles/Vol] 143 mmol/L Normal 136-145 [facility] Comment on above: Order Comment: 205.1 Performed By: #### L [id number] #### [facility] [address] [place], [address] Urea nitrogen [Mass/Vol] 26 mg/dL High 7-18 [facility] Comment on above: Order Comment: 205.1 Performed By: #### L 500.2500 #### [facility] [address] [place], [address] Blood urea nitrogen (BUN)/cr eatinine ratioOrdered By: [facility] on 06-02-2024 Urea nitrogen/Creatinine [Mass ratio] 25.5 mg/mg High 10-20 [place] [facility] Carbon dioxide measurementOr dered By: [facility] on 06-02-2024 CO2 [Moles/Vol] 28.0 mmol/L 21.0-32.0 [facility] Chloride measurementOrdered By: [facility] on 06-02-2024 Chloride [Moles/Vol] 113 mmol/L High 98-107 [facility] Estimated glomerular filtrat ion rate (GFR) AmericanOrdered By: [facility] on 06-02-2024 Estimated GFR (MDRD) Amer 67 mL/min >60 [facility] Comment on above: GFR Calc Glomerular filtration rate ( GFR) estimationOrdered By: [facility] on 06-02-2024 Estimated GFR (MDRD) Non-Af Amer 55 mL/min Low >60 [facility] Comment on above: Non- GFR Calc Glucose measurementOrdered B y: [facility] on 06-02-2024 Glucose [Mass/Vol] 94 mg/dL 74-106 [facility] Potassium measurementOrdered By: [facility] on 06-02-2024 Potassium [Moles/Vol] 3.5 mmol/L 3.5-5.1 [facility] Serum anion gap measurementO rdered By: [facility] on 06-02-2024 Anion gap [Moles/Vol] 2 mmol/L Low 5-15 [facility] Serum or plasma calcium thanh urement (mass/volume)Ordered By: [facility] on 06-02-2024 Calcium [Mass/Vol] 8.2 mg/dL Low 8.5-10.1 [facility] Serum or plasma creatinine m easurement (mass/volume)Ordered By: [facility] on 06-02-2024 Creatinine [Mass/Vol] 1.02 mg/dL 0.55-1.02 [facility] Comment on above: The validity of the calculated GFR & GFRAA in patients over 70 years has not been determined. Clinical correlation is essential. Serum or plasma urea nitroge n measurement (mass/volume)Ordered By: [facility] on 06-02-2024 Urea nitrogen [Mass/Vol] 26 mg/dL High 7-18 [facility] Sodium [facility]Ordered By: [facility] 11-27-2024 Sodium [Moles/Vol] 143 mmol/L 136-145 [facility] CNOVon 05-13-2024 CNOV Office Visit (CVAKPO) MYRNA SARAVIA ([id number]) 1945 F Date Time Provider Department 05/13/24 2:30 PM APURVA BRUNO CVELIANA During your visit today, we recorded the following information about you: Pulse Blood pressure Weight Height 68/minute 146/83 80.3 kg 1.626 m Apurva Bruno APRN.PUBLIC ACCOUNTANT 05/14/2024 11:01 AM Signed [facility] Established Visit Consultation is requested by: No referring provider defined for this encounter. PCP: Evin Garcia (David) [place] [place] [address] CEREBROVASCULAR HISTORY Myrna Saravia is a 77 year old female presenting for hospital discharge follow up. Admitted to [facility] 11/10-11/16/22. From discharge summary: 77-year-old female presented [facility] for acute onset of right upper extremity and right lower extremity weakness. Then was called and she was presented to [facility] where telestroke was called. She had a [...] received cardiac event monitor -[facility] (crying, bouts of anger) - [...] -presents with her daughter Brooklynn -in different long-term facility, moved about a week ago- [facility] in [place] -aphasia and dysarthria improving -she still cannot [...] with he (more content not included)... Normal [facility] Basic Metabolic Profile (BMP )on 04-13-2024 BUN/CRE 25.2 RATIO High 10-20 [facility] Comment on above: Order Comment: 205.1 Performed By: #### L 500.2500 #### [facility] [address] [place], [address] CA,Total 8.6 mg/dL Normal 8.5-10.1 [facility] Comment on above: Order Comment: 205.1 Performed By: #### L 500.2500 #### [facility] [address] [place], [address] Chloride [Moles/Vol] 112 mmol/L High 98-107 [facility] Comment on above: Order Comment: 205.1 Performed By: #### L 500.2500 #### [facility] [address] [place], [address] CO2 [Moles/Vol] 27.0 mmol/L Normal 21.0-32.0 [facility] Comment on above: Order Comment: 205.1 Performed By: #### L 500.2500 #### [facility] [address] [place], [address] Creatinine [Mass/Vol] 0.99 mg/dL Normal 0.55-1.02 [facility] Comment on above: Order Comment: 205.1 Result Comment: The validity of the calculated GFR GFRAA in patients over 70 years has not been determined. Clinical correlation is essential. Performed By: #### L 500.2500 #### [facility] [address] [place], [address] EST GFR - AA 69 mL/min Normal >60 [facility] Comment on above: Order Comment: 205.1 Result Comment: Afri can Azerbaij[place] GFR Calc Performed By: #### L 500.2500 #### [facility] [address] [place], [address] GAP 6 Normal 5-15 [facility] Comment on above: Order Comment: . Performed By: #### L 500.2500 #### [facility] [address] [place], [address] GFR/1.73 sq M.predicted among non-blacks MDRD (S/P/Bld) [Vol rate/Area] 57 mL/min/{1.73_m2} Low >60 [facility] Comment on above: Order Comment: . Result Comment: Non- GFR Calc Performed By: #### L 500.2500 #### [facility] [address] [place], [address] Glucose [Mass/Vol] 97 mg/dL Normal 74-106 [facility] Comment on above: Order Comment: . Performed By: #### L 500.2500 #### [facility] [address] [place], [address] Potassium [Moles/Vol] 3.4 mmol/L Low 3.5-5.1 [facility] Comment on above: Order Comment: . Performed By: #### L 500.2500 #### [facility] [address] [place], [address] Sodium [Moles/Vol] 145 mmol/L Normal 136-145 [facility] Comment on above: Order Comment: 205.1 Performed By: #### L 500.2500 #### [facility] [address] [place], [address] Urea nitrogen [Mass/Vol] 25 mg/dL High 7-18 [facility] Comment on above: Order Comment: 205.1 Performed By: #### L 500.2500 #### [facility] [address] [place], [address] CBC-Complete Blood Cnt No Di ffon 04-13-2024 Erythrocyte distribution width (RBC) [Ratio] 13.8 % Normal 11.6-14.6 [facility] Comment on above: Order Comment: 205.1 Performed By: #### L 500.2500 #### [facility] [address] [place], [address] Hematocrit (Bld) [Volume fraction] 36.1 % Low 37-47 [facility] Comment on above: Order Comment: 205.1 Performed By: #### L 500.2500 #### [facility] [address] [place], [address] Hemoglobin (Bld) [Mass/Vol] 11.4 g/dL Low 12.0-15.0 [facility] Comment on above: Order Comment: 205.1 Performed By: #### L 500.2500 #### [facility] [address] [place], [address] MCH (RBC) [Entitic mass] 29.8 pg Normal 27.0-32.0 [facility] Comment on above: Order Comment: 205.1 Performed By: #### L 500.2500 #### [facility] [address] [place], [address] MCHC (RBC) [Mass/Vol] 31.6 g/dL Low 32-36 [facility] Comment on above: Order Comment: 205.1 Performed By: #### L 500.2500 #### [facility] [address] [place], [address] MCV (RBC) [Entitic vol] 94.5 fL Normal 81-99 [facility] Comment on above: Order Comment: 205.1 Performed By: #### L 500.2500 #### [facility] [address] [place], [address] Platelet mean volume (Bld) [Entitic vol] 10.2 fL Normal 6.2-12.0 [facility] Comment on above: Order Comment: 205.1 Performed By: #### L 500.2500 #### [facility] [address] [place], [address] Platelets (Bld) [#/Vol] 154 10*3/uL Normal 150-450 [facility] Comment on above: Order Comment: 205.1 Performed By: #### L 500.2500 #### [facility] [address] [place], [address] RBC (Bld) [#/Vol] 3.82 10*6/uL Low 4.2-5.4 [facility] Comment on above: Order Comment: 205.1 Performed By: #### L 500.2500 #### [facility] [address] [place], [address] RDW SD 47.7 fl High 35.1-43.9 [facility] Comment on above: Order Comment: 205.1 Performed By: #### L 500.2500 #### [facility] [address] [place], [address] WBC (Bld) [#/Vol] 5.1 10*3/uL Normal 4.4-11.0 [facility] Comment on above: Order Comment: 205.1 Performed By: #### L 500.2500 #### [facility] [address] [place], [address] Lipid Profileon 03-23-2024 Cholesterol [Mass/Vol] 112 mg/dL Normal [address] [facility] Comment on above: Order Comment: 205.1 Result Comment: <200 mg/dL Desirable 200-240 mg/dL Borderline >240 mg/dL High Risk Performed By: #### L 500.2500 #### [facility] [address] [place], [address] Cholesterol in HDL [Mass/Vol] 50 mg/dL Normal [facility] Comment on above: Order Comment: 205.1 Result Comment: The drugs N-Acetylcysteine and Metamizole may falsely depress this assay. Reference Range HDL <40 mg/dL Low HDL Cholesterol HDL >or= 60 mg/dL High HDL Cholesterol Performed By: #### L 500.2500 #### [facility] [address] [place], [address] Cholesterol in LDL [Mass/Vol] 53 mg/dL Normal 0-130 [facility] Comment on above: Order Comment: 205.1 Performed By: #### L 500.2500 #### [facility] [address] [place], [address] Cholesterol in VLDL [Mass/Vol] 9 mg/dL Normal 5-40 [facility] Comment on above: Order Comment: 205.1 Performed By: #### L 500.2500 #### [facility] [address] [place], [address] Triglyceride [Mass/Vol] 46 mg/dL Normal [facility] Comment on above: Order Comment: 205.1 Result Comment: The drugs N-Acetylcysteine and Metamizole may falsely depress this assay. Serum Triglycerides Reference Interval Normal <150 mg/dL Borderline high 150 - 199 mg/dL High 200 - 499 mg/dL Very High > or = 500 mg/dL Performed By: #### L 500.2500 #### [facility] [address] [place], [address] Urine Cultureon 02-29-2024 [facility] Providencia stuartii Roy Count 11,000-25,000 Providencia stuartii: REACTION Ampicillin Islt [...] TMP SMX Islt KARL <=20 S Normal [facility] Comment on above: Performed By: #### M 100.2200, L400.0001 #### [facility] [address] [place], [address] Urinalysis, Completeon 02-26 WBC 0-5 SEEN Normal 0-5 [facility] Comment on above: Order Comment: ARY TER SPECIMEN Performed By: #### M 100.2200, L400.0001 #### [facility] [address] [place], [address] BACTERIA 0 SEEN Normal None Seen [facility] Comment on above: Order Comment: ARY TER SPECIMEN Performed By: #### M 100.2200, L400.0001 #### [facility] [address] [place], [address] EPI,SQUAMOUS 0 SEEN Normal 5-10 [facility] Comment on above: Order Comment: ARY TER SPECIMEN Performed By: #### M 100.2200, L400.0001 #### [facility] [address] [place], [address] Mucus Ql (Urine sed) 0 SEEN Normal [facility] Comment on above: Order Comment: ARY TER SPECIMEN Performed By: #### M 100.2200, L400.0001 #### [facility] [address] [place], [address] RBC 0 SEEN Normal 0-5 [facility] Comment on above: Order Comment: ARY TER SPECIMEN Performed By: #### M 100.2200, L400.0001 #### [facility] [address] [place], [address] Basic Metabolic Profile (BMP )on 02-24-2024 Chloride [Moles/Vol] 110 mmol/L High 98-107 [facility] Comment on above: Order Comment: Result Comment: . AMENDED REPORT 02/24/241205 CL previously reported as: 110 H mmol/L Performed By: #### L 100.0500, L500.2500 #### [facility] [address] [place], [address] CO2 [Moles/Vol] 29.0 mmol/L Normal 21.0-32.0 [facility] Comment on above: Order Comment: Result Comment: . AMENDED REPORT 02/24/241205 CO2 previously reported as: 29.0 mmol/L Performed By: #### L 100.0500, L500.2500 #### [facility] [address] [place], [address] GAP 3 Low 5-15 [facility] Comment on above: Order Comment: Result Comment: . AMENDED REPORT 02/24/241205 GAP previously reported as: 3 L Performed By: #### L 100.0500, L500.2500 #### [facility] [address] [place], [address] Potassium [Moles/Vol] 3.7 mmol/L Normal 3.5-5.1 [facility] Comment on above: Order Comment: Result Comment: . AMENDED REPORT 02/24/241205 K previously reported as: 3.7 mmol/L Performed By: #### L 100.0500, L500.2500 #### [facility] [address] [place], [address] BUN/CRE 24.8 RATIO High 10-20 [facility] Comment on above: Order Comment: Result Comment: . AMENDED REPORT 02/24/241204 BUN/CRE previously reported as: 24.8 H RATIO Performed By: #### L 100.0500, L500.2500 #### [facility] [address] [place], [address] CA,Total 8.9 mg/dL Normal 8.5-10.1 [facility] Comment on above: Order Comment: Result Comment: . AMENDED REPORT 02/24/241204 CA previously reported as: 8.9 mg/dL Performed By: #### L 100.0500, L500.2500 #### [facility] [address] [place], [address] Creatinine [Mass/Vol] 1.09 mg/dL High 0.55-1.02 [facility] Comment on above: Order Comment: [...] Performed By: #### L 100.0500, L500.2500 #### [facility] [address] [place], [address] EST GFR - AA 62 mL/min Normal >60 [facility] Comment on above: Order Comment: Result Comment: Afri can Azerbaijani GFR Calc . AMENDED REPORT 02/24/241204 EST GFR - AA previously reported as: 62 mL/min GFR Calc Performed By: #### L 100.0500, L500.2500 #### [facility] [address] [place], [address] GFR/1.73 sq M.predicted among non-blacks MDRD (S/P/Bld) [Vol rate/Area] 51 mL/min/{1.73_m2} Low >60 [facility] Comment on above: Order Comment: Result Comment: Non- GFR Calc . AMENDED REPORT 02/24/241204 EST GFR previously reported as: 51 L mL/min Non- GFR Calc Performed By: #### L 100.0500, L500.2500 #### [facility] [address] [place], [address] Sodium [Moles/Vol] 142 mmol/L Normal 136-145 [facility] Comment on above: Order Comment: Result Comment: . AMENDED REPORT 02/24/241204 NA previously reported as: 142 mmol/L Performed By: #### L 100.0500, L500.2500 #### [facility] [address] [place], [address] Glucose [Mass/Vol] 95 mg/dL Normal 74-106 [facility] Comment on above: Order Comment: Result Comment: . AMENDED REPORT 02/24/241203 GLU previously reported as: 95 mg/dL Performed By: #### L 100.0500, L500.2500 #### [facility] [address] [place], [address] Urea nitrogen [Mass/Vol] 27 mg/dL High 7-18 [facility] Comment on above: Order Comment: Result Comment: . AMENDED REPORT 02/24/241203 BUN previously reported as: 27 H mg/dL Performed By: #### L 100.0500, L500.2500 #### [facility] [address] [place], [address] CBC-Complete Blood Cnt No Di ffon 02-24-2024 Erythrocyte distribution width (RBC) [Ratio] 13.5 % Normal 11.6-14.6 [facility] Comment on above: Order Comment: Result Comment: . AMENDED REPORT 02/24/24 1200 RDW CV previously reported as: 13.5 % Performed By: #### L 100.0500, L500.2500 #### [facility] [address] [place], [address] MCH (RBC) [Entitic mass] 30.8 pg Normal 27.0-32.0 [facility] Comment on above: Order Comment: Result Comment: . AMENDED REPORT 02/24/24 1200 MCH previously reported as: 30.8 pg Performed By: #### L 100.0500, L500.2500 #### [facility] [address] [place], [address] MCHC (RBC) [Mass/Vol] 32.2 g/dL Normal 32-36 [facility] Comment on above: Order Comment: Result Comment: . AMENDED REPORT 02/24/24 1200 MCHC previously reported as: 32.2 g/dL Performed By: #### L 100.0500, L500.2500 #### [facility] [address] [place], [address] Platelet mean volume (Bld) [Entitic vol] 9.2 fL Normal 6.2-12.0 [facility] Comment on above: Order Comment: Result Comment: . AMENDED REPORT 02/24/24 1200 MPV previously reported as: 9.2 fl Performed By: #### L 100.0500, L500.2500 #### [facility] [address] [place], [address] Platelets (Bld) [#/Vol] 256 10*3/uL Normal 150-450 [facility] Comment on above: Order Comment: Result Comment: . AMENDED REPORT 02/24/24 1200 PLT previously reported as: 256 K/mm3 Performed By: #### L 100.0500, L500.2500 #### [facility] [address] [place], [address] RDW SD 47.5 fl High 35.1-43.9 [facility] Comment on above: Order Comment: Result Comment: . AMENDED REPORT 02/24/24 1200 RDW SD previously reported as: 47.5 H fl Performed By: #### L 100.0500, L500.2500 #### [facility] [address] [place], [address] Hematocrit (Bld) [Volume fraction] 39.4 % Normal 37-47 [facility] Comment on above: Order Comment: Result Comment: . AMENDED REPORT 02/24/24 1159 HCT previously reported as: 39.4 % Performed By: #### L 100.0500, L500.2500 #### [facility] [address] [place], [address] Hemoglobin (Bld) [Mass/Vol] 12.7 g/dL Normal 12.0-15.0 [facility] Comment on above: Order Comment: Result Comment: . AMENDED REPORT 02/24/24 1159 HGB previously reported as: 12.7 g/dL Performed By: #### L 100.0500, L500.2500 #### [facility] [address] [place], [address] MCV (RBC) [Entitic vol] 95.4 fL Normal 81-99 [facility] Comment on above: Order Comment: Result Comment: . AMENDED REPORT 02/24/24 1159 MCV previously reported as: 95.4 fL Performed By: #### L 100.0500, L500.2500 #### [facility] [address] [place], [address] RBC (Bld) [#/Vol] 4.13 10*6/uL Low 4.2-5.4 [facility] Comment on above: Order Comment: Result Comment: . AMENDED REPORT 02/24/24 1159 RBC previously reported as: 4.13 L M/mm3 Performed By: #### L 100.0500, L500.2500 #### [facility] [address] [place], [address] WBC (Bld) [#/Vol] 5.8 10*3/uL Normal 4.4-11.0 [facility] Comment on above: Order Comment: Result Comment: . AMENDED REPORT 02/24/24 3170 WBC previously reported as: 5.8 K/mm3 Performed By: #### L 100.0500, L500.2500 #### [facility] [address] [place], [address] Basic Metabolic Profile (BMP )on 01-09-2024 BUN/CRE 29.7 RATIO High 10-20 [facility] Comment on above: Order Comment: Performed By: #### L 100.0500, L500.2500 #### [facility] [address] [place], [address] CA,Total 8.9 mg/dL Normal 8.5-10.1 [facility] Comment on above: Order Comment: Performed By: #### L 100.0500, L500.2500 #### [facility] [address] [place], [address] Chloride [Moles/Vol] 110 mmol/L High 98-107 [facility] Comment on above: Order Comment: Performed By: #### L 100.0500, L500.2500 #### [facility] [address] [place], [address] CO2 [Moles/Vol] 28.0 mmol/L Normal 21.0-32.0 [facility] Comment on above: Order Comment: Performed By: #### L 100.0500, L500.2500 #### [facility] [address] [place], [address] Creatinine [Mass/Vol] 1.01 mg/dL Normal 0.55-1.02 [facility] Comment on above: Order Comment: Result Comment: The validity of the calculated GFR GFRAA in patients over 70 years has not been determined. Clinical correlation is essential. Performed By: #### L 100.0500, L500.2500 #### [facility] [address] [place], [address] EST GFR - AA 68 mL/min Normal >60 [facility] Comment on above: Order Comment: Result Comment: Afri can Azerbaij[place] GFR Calc Performed By: #### L 100.0500, L500.2500 #### [facility] [address] [place], [address] GAP 5 Normal 5-15 [facility] Comment on above: Order Comment: Performed By: #### L 100.0500, L500.2500 #### [facility] [address] [place], [address] GFR/1.73 sq M.predicted among non-blacks MDRD (S/P/Bld) [Vol rate/Area] 56 mL/min/{1.73_m2} Low >60 [facility] Comment on above: Order Comment: Result Comment: Non- GFR Calc Performed By: #### L 100.0500, L500.2500 #### [facility] [address] [place], [address] Glucose [Mass/Vol] 89 mg/dL Normal 74-106 [facility] Comment on above: Order Comment: Performed By: #### L 100.0500, L500.2500 #### [facility] [address] [place], [address] Potassium [Moles/Vol] 3.5 mmol/L Normal 3.5-5.1 [facility] Comment on above: Order Comment: Performed By: #### L 100.0500, L500.2500 #### [facility] [address] [place], [address] Sodium [Moles/Vol] 143 mmol/L Normal 136-145 [facility] Comment on above: Order Comment: Performed By: #### L 100.0500, L500.2500 #### [facility] [address] [place], [address] Urea nitrogen [Mass/Vol] 30 mg/dL High 7-18 [facility] Comment on above: Order Comment: Performed By: #### L 100.0500, L500.2500 #### [facility] [address] [place], [address] CBC-Complete Blood Cnt No Di ffon 01-09-2024 Erythrocyte distribution width (RBC) [Ratio] 13.6 % Normal 11.6-14.6 [facility] Comment on above: Performed By: #### L 100.0500, L500.2500 #### [facility] [address] [place], [address] Hematocrit (Bld) [Volume fraction] 38.2 % Normal 37-47 [facility] Comment on above: Performed By: #### L 100.0500, L500.2500 #### [facility] [address] [place], [address] Hemoglobin (Bld) [Mass/Vol] 12.0 g/dL Normal 12.0-15.0 [facility] Comment on above: Performed By: #### L 100.0500, L500.2500 #### [facility] [address] [place], [address] MCH (RBC) [Entitic mass] 29.4 pg Normal 27.0-32.0 [facility] Comment on above: Performed By: #### L 100.0500, L500.2500 #### [facility] [address] [place], [address] MCHC (RBC) [Mass/Vol] 31.4 g/dL Low 32-36 [facility] Comment on above: Performed By: #### L 100.0500, L500.2500 #### [facility] [address] [place], [address] MCV (RBC) [Entitic vol] 93.6 fL Normal 81-99 [facility] Comment on above: Performed By: #### L 100.0500, L500.2500 #### [facility] [address] [place], [address] Platelet mean volume (Bld) [Entitic vol] 10.0 fL Normal 6.2-12.0 [facility] Comment on above: Performed By: #### L 100.0500, L500.2500 #### [facility] [address] [place], [address] Platelets (Bld) [#/Vol] 156 10*3/uL Normal 150-450 [facility] Comment on above: Performed By: #### L 100.0500, L500.2500 #### [facility] [address] [place], [address] RBC (Bld) [#/Vol] 4.08 10*6/uL Low 4.2-5.4 [facility] Comment on above: Performed By: #### L 100.0500, L500.2500 #### [facility] [address] [place], [address] RDW SD 47.1 fl High 35.1-43.9 [facility] Comment on above: Performed By: #### L 100.0500, L500.2500 #### [facility] [address] [place], [place], [address] WBC (Bld) [#/Vol] 5.5 10*3/uL Normal 4.4-11.0 [facility] Comment on above: Performed By: #### L 100.0500, L500.2500 #### [facility] [address] [place], [address] CNOVon 11-21-2023 CNOV Office Visit (UROLSF) MYRNA SARAVIA ([id number]) 1945 F Date Time Provider Department 11/21/23 1:45 PM LASHANDA ALBRECHT [facility] During your visit today, we recorded the following information about you: Pulse Blood pressure Height 85/minute 140/83 1.626 m Lashanda Albrecht APRN.PUBLIC ACCOUNTANT 11/21/2023 2:31 PM Addendum ESTABLISHED PATIENT OFFICE VISIT HISTORY OF PRESENT ILLNESS Myrna Saravia is a 78 year old female who presents today in f/u. 04/14/23: Patient with a h/o urinary retention, UTI, CVA. Patient presents today in f/u. Patient now at [facility]. Recent UTI on 04/02/23. Finished a [...] the time during the day at the [facility]. Mostly has incontinence into her depends. Today's note: Patient with a h/o CVA, urinary retention, UTI. Patient is still residing at [facility]. Her last UTI was on 04/02/23. Recent [...] (no units) Date Value 12/03/2022 Negative Specific Ronce[place], Ur (no units) Date Value 12/03/2022 >=1.030 [...] mL syrup chlorthalidone (HYGROTON) 25 mg tablet [facility] 10 billion cell -200 mg [...] PM Mod (more content not included)... Normal [facility] CNOVon 11-12-2023 CNOV Office Visit (CVAKPO) MYRNA SARAVIA ([id number]) 1945 F Date Time Provider Department 11/12/23 1:00 PM APURVA BRUNO CVAKPO During your visit today, we recorded the following information about you: Pulse Blood pressure Weight Height 62/minute 122/49 80.3 kg 1.626 m Apurva Bruno, DASHA.PUBLIC ACCOUNTANT 11/12/2023 2:25 PM Signed [facility] Established Visit Consultation is requested by: No referring provider defined for this encounter. PCP: Evin Garcia (David) [address] [place] [address] CEREBROVASCULAR HISTORY Myrna Saravia is a 77 year old female presenting for hospital discharge follow up. Admitted to [facility] 11/10-11/16/22. From discharge summary: 77-year-old female presented [facility] for acute onset of right upper extremity and right lower extremity weakness. Then was called and she was presented to [facility] where telestroke was called. She had a [...] received cardiac event monitor -[facility] (crying, bouts of anger) - [...] -presents with her daughter Brooklynn -in different long-term facility, moved about a week ago- [facility] in [place] -aphasia and dysarthria improving -she still cannot [...] have be (more content not included)... Normal [facility] Bilirubin Test strip Ql (U)O rdered By: Marcos Brown on 07-02-2023 Bilirubin Ql (U) Negative Negative [facility] Culture, urineOrdered By: Donnie Eugene on 07-02-2023 Bacteria identified Cx Nom (U) Proteus mirabilis [facility] Ketones Test strip Ql (U)Ord ered By: Marcos Brown on 07-02-2023 Ketones Ql (U) Negative Negative [facility] Nitrite Test strip Ql (U)Ord ered By: Marcos Brown on 07-02-2023 Nitrite Ql (U) Negative Negative [facility] Protein Test strip Ql (U)Ord ered By: Marcos Brown on 07-02-2023 Protein Ql (U) Negative Negative [facility] Urine blood detectionOrdered By: Marcos Brown on 07-02-2023 RBC Ql (U) 10 /ul Negative [facility] Urine clarityOrdered By: Pet mitul Brown on 07-02-2023 Clarity (U) Sl. Cloudy Clear [facility] Urine color determinationOrd ered By: Marcos Brown on 07-02-2023 Color (U) Yellow Yellow [facility] Urine glucose detectionOrder ed By: Marcos Brown on 07-02-2023 Glucose Ql (U) Normal mg/dl Normal [facility] Urine leukocyte esterase det ection by dipstickOrdered By: Marcos Brown on 07-02-2023 Leukocyte esterase Test strip Ql (U) 500 /ul Negative [facility] Urine pHOrdered By: Marcos wild on 07-02-2023 pH (U) 6.0 [pH] 5.0 - 8.0 [facility] Urine specific gravity measu rementOrdered By: Marcos Brown on 07-02-2023 Specific gravity (U) [Rel density] 1.015 1.002-1.030 [facility] Urobilinogen Auto test strip Ql (U)Ordered By: Marcos Brown on 07-02-2023 Urobilinogen Ql (U) Normal mg/dl Normal [facility] Basophil percentageOrdered B y: Marcos Brown on 06-26-2023 Chloride [Moles/Vol] 110 mmol/L 98-107 [facility] Glucose [Mass/Vol] 89 mg/dL 74-106 [facility] Potassium [Moles/Vol] 3.4 mmol/L 3.5-5.1 [facility] Sodium [Moles/Vol] 143 mmol/L 136-145 [facility] WBC (Bld) [#/Vol] 5.7 10*3/uL 4.4-11.0 [facility] Blood erythrocytes count (nu mber/volume)Ordered By: Marcos Brown on 06-26-2023 RBC (Bld) [#/Vol] 3.69 10*6/uL 4.2-5.4 [facility] Blood hemoglobin measurement (mass/volume)Ordered By: Marcos Brown on 06-26-2023 Hemoglobin (Bld) [Mass/Vol] 11.1 g/dL 12.0-15.0 [facility] Blood platelet mean volumeOr dered By: Marcos Brown on 06-26-2023 Platelet mean volume (Bld) [Entitic vol] 9.8 fL 6.2-12.0 [facility] Determination of erythrocyte mean corpuscular volume (MCV)Ordered By: Marcos Brown on 06-26-2023 MCV (RBC) [Entitic vol] 93.2 fL 81-99 [facility] Hematocrit Auto (Bld) [Volum e fraction]Ordered By: Marcos Brown on 06-26-2023 Hematocrit (Bld) [Volume fraction] 34.4 % 37-47 [facility] - Chemistry and C hemistry - challengeOrdered By: Marcos Brown on 06-26-2023 CO2 [Moles/Vol] 30.0 mmol/L 21.0-32.0 [facility] Urea nitrogen/Creatinine [Mass ratio] 28.3 mg/mg 10-20 [facility] - Hematology and Cell countsOrdered By: Marcos Brown on 06-26-2023 Erythrocyte distribution width (RBC) [Entitic vol] 46.0 fL 35.1-43.9 [facility] Erythrocyte distribution width (RBC) [Ratio] 13.5 % 11.6-14.6 [facility] MCH (RBC) [Entitic mass] 30.1 pg 27.0-32.0 [facility] MCHC Auto (RBC) [Mass/Vol]Or dered By: Marcos Brown on 06-26-2023 MCHC (RBC) [Mass/Vol] 32.3 g/dL 32- [facility] [facility] No Panel InformationOrdered By: Marcos Brown on 06-26-2023 Estimated GFR (MDRD) Amer 64 mL/min >60 [facility] Comment on above: GFR Calc Estimated GFR (MDRD) Non-Af Amer 53 mL/min >60 [facility] Comment on above: Non- GFR Calc Platelets bldOrdered By: Daisha Brown on 06-26-2023 Platelets (Bld) [#/Vol] 175 10*3/uL 150-450 [facility] Serum or plasma calcium thanh urement (mass/volume)Ordered By: Marcos Brown on 06-26-2023 Calcium [Mass/Vol] 8.9 mg/dL 8.5-10.1 [facility] Serum or plasma creatinine m easurement (mass/volume)Ordered By: Marcos Brown on 06-26-2023 Creatinine [Mass/Vol] 1.06 mg/dL 0.55-1.02 [facility] Comment on above: The validity of the calculated GFR & GFRAA in patients over 70 years has not been determined. Clinical correlation is essential. Serum or plasma urea nitroge n measurement (mass/volume)Ordered By: Marcos Brown on 06-26-2023 Urea nitrogen [Mass/Vol] 30 mg/dL 7-18 [facility] Thin prep Papanicolaou smear with manual screeningOrdered By: Marcos Brown on 06-26-2023 Thin prep Papanicolaou smear with manual screening 3 5-15 [facility] Basophil percentageOrdered B y: Marcos Brown on 04-16-2023 Basophil percentage 0 SEEN /hpf 0-5 [facility] Bilirubin Test strip Ql (U)O rdered By: Marcos Brown on 04-16-2023 Bilirubin Ql (U) Negative Negative [facility] Culture, urineOrdered By: Donnie Eugene on 04-16-2023 Bacteria identified Cx Nom (U) Culture exhibits no growth. [facility] Ketones Test strip Ql (U)Ord ered By: Marcos Brown on 04-16-2023 Ketones Ql (U) Negative Negative [facility] Mucus LM Ql (Urine sed)Order ed By: Marcos Brown on 04-16-2023 Mucus Ql (Urine sed) 0 SEEN /hpf [facility] Nitrite Test strip Ql (U)Ord ered By: Marcos Brown on 04-16-2023 Nitrite Ql (U) Negative Negative [facility] Protein Test strip Ql (U)Ord ered By: Marcos Brown on 04-16-2023 Protein Ql (U) Negative Negative [facility] Squamous epithelial cells de tection in urine sediment by light microscopyOrdered By: Marcos Brown on 04-16-2023 Epithelial cells.squamous LM Ql (Urine sed) 0 SEEN /hpf 5-10 [facility] Urine blood detectionOrdered By: Marcos Brown on 04-16-2023 RBC Ql (U) Negative Negative [facility] RBC Ql (U) 0 SEEN /hpf 0-5 [facility] Urine clarityOrdered By: Daisha Brown on 04-16-2023 Clarity (U) Clear Clear [facility] Urine color determinationOrd ered By: Marcos Brown on 04-16-2023 Color (U) Yellow Yellow [facility] Urine glucose detectionOrder ed By: Marcos Brown on 04-16-2023 Glucose Ql (U) Normal mg/dl Normal [facility] Urine leukocyte esterase det ection by dipstickOrdered By: Marcos Brown on 04-16-2023 Leukocyte esterase Test strip Ql (U) Negative Negative [facility] Urine pHOrdered By: Marcos wild on 04-16-2023 pH (U) 6.0 [pH] 5.0 - 8.0 [facility] Urine sediment bacteria coun t by microscopy (number/high power field)Ordered By: Marcos rBown on 04-16-2023 Bacteria LM.HPF (Urine sed) [#/Area] 0 /[HPF] None Seen [facility] Urine specific gravity measu rementOrdered By: Marcos Brown on 04-16-2023 Specific gravity (U) [Rel density] 1.010 1.002-1.030 [facility] Urobilinogen Auto test strip Ql (U)Ordered By: Marcos Brown on 04-16-2023 Urobilinogen Ql (U) Normal mg/dl Normal [facility] CNOVon 04-14-2023 CNOV Office Visit (UROLSF) MYRNA SARAVIA ([id number]) 1945 F Date Time Provider Department 04/14/23 2:45 PM LASHANDA ALBRECHT [facility] During your visit today, we recorded the following information about you: Temperature Pulse Blood pressure 97.9 degrees 66/minute 112/60 Lashanda Albrecht APRN.PUBLIC ACCOUNTANT 04/14/2023 3:56 PM Signed ESTABLISHED PATIENT OFFICE VISIT HISTORY OF PRESENT ILLNESS Myrna Saravia is a 78 year old female who presents today in f/u. Patient with a h/o urinary retention, UTI, CVA. Patient presents today in f/u. Patient now at [facility]. Recent UTI on 04/02/23. Finished a [...] the time during the day at the [facility]. Mostly has incontinence into her depends. LAB [...] (no units) Date Value 12/03/2022 Negative Specific Ronceverte, Ur (no units) Date Value 12/03/2022 >=1.030 [...] at bedtime. cefdinir (OMNICEF) 300 mg capsule [employer] 10 billion cell -200 mg capsule clopidogrel [...] than half of todays over 40 minute [id number] office visit was spent in counselling/coordina tion [...] call urology with any questions. Lashanda Albrecht APRN.PUBLIC ACCOUNTANT [phone] Referring Provider: SELF [[id number]] Allergies As of Date: 04/14/2023 Noted Allergy (more content not included)... Normal [facility] Culture, urineOrdered By: Donnie Eugene on 04-01-2023 Bacteria identified Cx Nom (U) Escherichia coli [facility] Bilirubin Test strip Ql (U)O rdered By: Marcos Brown on 03-31-2023 Bilirubin Ql (U) Negative Negative [facility] Culture, urineOrdered By: Donnie Eugene on 03-31-2023 Bacteria identified Cx Nom (U) Escherichia coli [facility] Ketones Test strip Ql (U)Ord ered By: Marcos Brown on 03-31-2023 Ketones Ql (U) Negative Negative [facility] Nitrite Test strip Ql (U)Ord ered By: Marcos Brown on 03-31-2023 Nitrite Ql (U) Positive Negative [facility] Protein Test strip Ql (U)Ord ered By: Marcos Brown on 03-31-2023 Protein Ql (U) Negative Negative [facility] Urine blood detectionOrdered By: Marcos Brown on 03-31-2023 RBC Ql (U) Negative Negative [facility] Urine clarityOrdered By: Daisha Brown on 03-31-2023 Clarity (U) Clear Clear [facility] Urine color determinationOrd ered By: Marcos Brown on 03-31-2023 Color (U) Yellow Yellow [facility] Urine glucose detectionOrder ed By: Marcos Brown on 03-31-2023 Glucose Ql (U) Normal mg/dl Normal [facility] Urine leukocyte esterase det ection by dipstickOrdered By: Marcos Brown on 03-31-2023 Leukocyte esterase Test strip Ql (U) 100 /ul Negative [facility] Urine pHOrdered By: Marcos wild on 03-31-2023 pH (U) 5.0 [pH] 5.0 - 8.0 [facility] Urine specific gravity measu rementOrdered By: Marcos Brown on 03-31-2023 Specific gravity (U) [Rel density] 1.020 1.002-1.030 [facility] Urobilinogen Auto test strip Ql (U)Ordered By: Marcos Brown on 03-31-2023 Urobilinogen Ql (U) Normal mg/dl Normal [facility] Basophil percentageOrdered B y: Marcos Brown on 03-27-2023 Chloride [Moles/Vol] 110 mmol/L 98-107 [facility] Glucose [Mass/Vol] 88 mg/dL 74-106 [facility] Potassium [Moles/Vol] 3.4 mmol/L 3.5-5.1 [facility] Sodium [Moles/Vol] 143 mmol/L 136-145 [facility] WBC (Bld) [#/Vol] 4.9 10*3/uL 4.4-11.0 [facility] Blood erythrocytes count (nu mber/volume)Ordered By: Marcos Brown on 03-27-2023 RBC (Bld) [#/Vol] 3.66 10*6/uL 4.2-5.4 [facility] Blood hemoglobin measurement (mass/volume)Ordered By: Marcos Brown on 03-27-2023 Hemoglobin (Bld) [Mass/Vol] 11.4 g/dL 12.0-15.0 [facility] Blood platelet mean volumeOr dered By: Marcos Brown on 03-27-2023 Platelet mean volume (Bld) [Entitic vol] 9.7 fL 6.2-12.0 [facility] Determination of erythrocyte mean corpuscular volume (MCV)Ordered By: Marcos Brown on 03-27-2023 MCV (RBC) [Entitic vol] 96.7 fL 81-99 [facility] Hematocrit Auto (Bld) [Volum e fraction]Ordered By: Marcos Brown on 03-27-2023 Hematocrit (Bld) [Volume fraction] 35.4 % 37-47 [facility] Laboratory - Chemistry and C hemistry - challengeOrdered By: Marcos Brown on 03-27-2023 CO2 [Moles/Vol] 32.0 mmol/L 21.0-32.0 [facility] Urea nitrogen/Creatinine [Mass ratio] 21.8 mg/mg 10-20 [facility] Laboratory - Hematology and Cell countsOrdered By: Marcos Brown on 03-27-2023 Erythrocyte distribution width (RBC) [Entitic vol] 49.5 fL 35.1-43.9 [facility] Erythrocyte distribution width (RBC) [Ratio] 14.0 % 11.6-14.6 [facility] MCH (RBC) [Entitic mass] 31.1 pg 27.0-32.0 [facility] MCHC Auto (RBC) [Mass/Vol]Or dered By: Marcos Brown on 03-27-2023 MCHC (RBC) [Mass/Vol] 32.2 g/dL 32-36 [facility] No Panel InformationOrdered By: Marcos Brown on 03-27-2023 Estimated GFR (MDRD) Amer 68 mL/min >60 [facility] Comment on above: GFR Calc Estimated GFR (MDRD) Non-Af Amer 56 mL/min >60 [facility] Comment on above: Non- GFR Calc Platelets bldOrdered By: Daisha Brown on 03-27-2023 Platelets (Bld) [#/Vol] 162 10*3/uL 150-450 [facility] Serum or plasma calcium thanh urement (mass/volume)Ordered By: Marcos Brown on 03-27-2023 Calcium [Mass/Vol] 8.9 mg/dL 8.5-10.1 [facility] Serum or plasma creatinine m easurement (mass/volume)Ordered By: Marcos Brown on 03-27-2023 Creatinine [Mass/Vol] 1.01 mg/dL 0.55-1.02 [facility] Comment on above: The validity of the calculated GFR & GFRAA in patients over 70 years has not been determined. Clinical correlation is essential. Serum or plasma urea nitroge n measurement (mass/volume)Ordered By: Marcos Brown on 03-27-2023 Urea nitrogen [Mass/Vol] 22 mg/dL 7-18 [facility] Thin prep Papanicolaou smear with manual screeningOrdered By: Marcos Brown on 03-27-2023 Thin prep Papanicolaou smear with manual screening 1 5-15 [facility] Basophil percentageOrdered B y: Marcos Brown on 03-20-2023 Chloride [Moles/Vol] 110 mmol/L 98-107 [facility] Glucose [Mass/Vol] 83 mg/dL 74-106 [facility] Potassium [Moles/Vol] 3.4 mmol/L 3.5-5.1 [facility] Sodium [Moles/Vol] 142 mmol/L 136-145 [facility] WBC (Bld) [#/Vol] 4.9 10*3/uL 4.4-11.0 [facility] Blood erythrocytes count (nu mber/volume)Ordered By: Marcos Brown on 03-20-2023 RBC (Bld) [#/Vol] 3.63 10*6/uL 4.2-5.4 [facility] Blood hemoglobin measurement (mass/volume)Ordered By: Marcos Brown on 03-20-2023 Hemoglobin (Bld) [Mass/Vol] 11.2 g/dL 12.0-15.0 [facility] Blood platelet mean volumeOr dered By: Marcos Brown on 03-20-2023 Platelet mean volume (Bld) [Entitic vol] 9.5 fL 6.2-12.0 [facility] Determination of erythrocyte mean corpuscular volume (MCV)Ordered By: Marcos Brown on 03-20-2023 MCV (RBC) [Entitic vol] 95.9 fL 81-99 [facility] Hematocrit Auto (Bld) [Volum e fraction]Ordered By: Marcos Brown on 03-20-2023 Hematocrit (Bld) [Volume fraction] 34.8 % 37-47 [facility] Laboratory - Chemistry and C hemistry - challengeOrdered By: Marcos Brown on 03-20-2023 CO2 [Moles/Vol] 30.0 mmol/L 21.0-32.0 [facility] Urea nitrogen/Creatinine [Mass ratio] 24.5 mg/mg 10-20 [facility] Laboratory - Hematology and Cell countsOrdered By: Marcos Brown on 03-20-2023 Erythrocyte distribution width (RBC) [Entitic vol] 49.2 fL 35.1-43.9 [facility] Erythrocyte distribution width (RBC) [Ratio] 13.9 % 11.6-14.6 [facility] MCH (RBC) [Entitic mass] 30.9 pg 27.0-32.0 [facility] MCHC Auto (RBC) [Mass/Vol]Or dered By: Marcos Brown on 03-20-2023 MCHC (RBC) [Mass/Vol] 32.2 g/dL 32-36 [facility] No Panel InformationOrdered By: Marcos Brown on 03-20-2023 Estimated GFR (MDRD) Amer 61 mL/min >60 [facility] Comment on above: GFR Calc Estimated GFR (MDRD) Non-Af Amer 51 mL/min >60 [facility] Comment on above: Non- GFR Calc Platelets bldOrdered By: Daisha Brown on 03-20-2023 Platelets (Bld) [#/Vol] 157 10*3/uL 150-450 [facility] Serum or plasma calcium thanh urement (mass/volume)Ordered By: Marcos Brown on 03-20-2023 Calcium [Mass/Vol] 9.0 mg/dL 8.5-10.1 [facility] Serum or plasma creatinine m easurement (mass/volume)Ordered By: Marcos Brown on 03-20-2023 Creatinine [Mass/Vol] 1.10 mg/dL 0.55-1.02 [facility] Comment on above: The validity of the calculated GFR & GFRAA in patients over 70 years has not been determined. Clinical correlation is essential. Serum or plasma urea nitroge n measurement (mass/volume)Ordered By: Marcos Brown on 03-20-2023 Urea nitrogen [Mass/Vol] 27 mg/dL 7-18 [facility] Thin prep Papanicolaou smear with manual screeningOrdered By: Marcos Brown on 03-20-2023 Thin prep Papanicolaou smear with manual screening 2 5-15 [facility] Basophil percentageOrdered B y: Marcos Brown on 03-13-2023 Chloride [Moles/Vol] 109 mmol/L 98-107 [facility] Glucose [Mass/Vol] 96 mg/dL 74-106 [facility] Potassium [Moles/Vol] 3.3 mmol/L 3.5-5.1 [facility] Sodium [Moles/Vol] 143 mmol/L 136-145 [facility] WBC (Bld) [#/Vol] 5.1 10*3/uL 4.4-11.0 [facility] Blood erythrocytes count (nu mber/volume)Ordered By: Marcos Brown on 03-13-2023 RBC (Bld) [#/Vol] 3.73 10*6/uL 4.2-5.4 [facility] Blood hemoglobin measurement (mass/volume)Ordered By: Marcos Brown on 03-13-2023 Hemoglobin (Bld) [Mass/Vol] 11.3 g/dL 12.0-15.0 [facility] Blood platelet mean volumeOr dered By: Marcos Brown on 03-13-2023 Platelet mean volume (Bld) [Entitic vol] 9.8 fL 6.2-12.0 [facility] Determination of erythrocyte mean corpuscular volume (MCV)Ordered By: Marcos Brown on 03-13-2023 MCV (RBC) [Entitic vol] 95.4 fL 81-99 [facility] Hematocrit Auto (Bld) [Volum e fraction]Ordered By: Marcos Brown on 03-13-2023 Hematocrit (Bld) [Volume fraction] 35.6 % 37-47 [facility] Laboratory - Chemistry and C hemistry - challengeOrdered By: Marcos Brown on 03-13-2023 CO2 [Moles/Vol] 30.0 mmol/L 21.0-32.0 [facility] Urea nitrogen/Creatinine [Mass ratio] 31.3 mg/mg 10-20 [facility] Laboratory - Hematology and Cell countsOrdered By: Marcos Brown on 03-13-2023 Erythrocyte distribution width (RBC) [Entitic vol] 49.2 fL 35.1-43.9 [facility] Erythrocyte distribution width (RBC) [Ratio] 14.0 % 11.6-14.6 [facility] MCH (RBC) [Entitic mass] 30.3 pg 27.0-32.0 [facility] MCHC Auto (RBC) [Mass/Vol]Or dered By: Marcos Brown on 03-13-2023 MCHC (RBC) [Mass/Vol] 31.7 g/dL 32-36 [facility] No Panel InformationOrdered By: Marcos Brown on 03-13-2023 Estimated GFR (MDRD) Amer 58 mL/min >60 [facility] Comment on above: GFR Calc Estimated GFR (MDRD) Non-Af Amer 48 mL/min >60 [facility] Comment on above: Non- GFR Calc Platelets bldOrdered By: Pet mitul Brown on 03-13-2023 Platelets (Bld) [#/Vol] 151 10*3/uL 150-450 [facility] Serum or plasma calcium thanh urement (mass/volume)Ordered By: Marcos Brown on 03-13-2023 Calcium [Mass/Vol] 8.9 mg/dL 8.5-10.1 [facility] Serum or plasma creatinine m easurement (mass/volume)Ordered By: Marcos Brown on 03-13-2023 Creatinine [Mass/Vol] 1.15 mg/dL 0.55-1.02 [facility] Comment on above: The validity of the calculated GFR & GFRAA in patients over 70 years has not been determined. Clinical correlation is essential. Serum or plasma urea nitroge n measurement (mass/volume)Ordered By: Marcos Brown on 03-13-2023 Urea nitrogen [Mass/Vol] 36 mg/dL 7-18 [facility] Thin prep Papanicolaou smear with manual screeningOrdered By: Marcos Brown on 03-13-2023 Thin prep Papanicolaou smear with manual screening 4 5-15 [facility] Basophil percentageOrdered B y: Marcos Brown on 02-10-2023 Bilirubin [Mass/Vol] 0.50 mg/dL 0.20-1.00 [facility] Comment on above: For patients on eltr ombopag therapy, use of [employer] [place] TBIL is not recommended. Chloride [Moles/Vol] 108 mmol/L 98-107 [facility] Cholesterol [Mass/Vol] 94 mg/dL <[address] [facility] Comment on above: <200 mg/dL Desirable 200-240 mg/dL Borderline >240 mg/dL High Risk Glucose [Mass/Vol] 94 mg/dL 74-106 [facility] Potassium [Moles/Vol] 3.6 mmol/L 3.5-5.1 [facility] Protein [Mass/Vol] 5.4 g/dL 6.4-8.2 [facility] Sodium [Moles/Vol] 142 mmol/L 136-145 [facility] Triglyceride [Mass/Vol] 83 mg/dL <199 [facility] Comment on above: The drugs N-Acetylcy steine and Metamizole may falsely depress this assay.Serum Triglycerides Reference Interval Normal <150 mg/dL Borderline high 150 - 199 mg/dL High 200 - 499 mg/dL Very High > or = 500 mg/dL WBC (Bld) [#/Vol] 5.2 10*3/uL 4.4-11.0 [facility] Blood erythrocytes count (nu mber/volume)Ordered By: Marcos Brown on 02-10-2023 RBC (Bld) [#/Vol] 3.44 10*6/uL 4.2-5.4 [facility] Blood hemoglobin measurement (mass/volume)Ordered By: Marcos Brown on 02-10-2023 Hemoglobin (Bld) [Mass/Vol] 10.3 g/dL 12.0-15.0 [facility] Blood platelet mean volumeOr dered By: Marcos Brown on 02-10-2023 Platelet mean volume (Bld) [Entitic vol] 9.8 fL 6.2-12.0 [facility] Determination of erythrocyte mean corpuscular volume (MCV)Ordered By: Marcos Brown on 02-10-2023 MCV (RBC) [Entitic vol] 95.9 fL 81-99 [facility] Hematocrit Auto (Bld) [Volum e fraction]Ordered By: Marcos Brown on 02-10-2023 Hematocrit (Bld) [Volume fraction] 33.0 % 37-47 [facility] Laboratory - Chemistry and C hemistry - challengeOrdered By: Marcos Brown on 02-10-2023 ALP [Catalytic activity/Vol] 53 U/L 45-117 [facility] ALT [Catalytic activity/Vol] 14 U/L 13-56 [facility] CO2 [Moles/Vol] 31.0 mmol/L 21.0-32.0 [facility] Globulin (S) [Mass/Vol] 2.9 g/dL 2.2-4.2 [facility] Urea nitrogen/Creatinine [Mass ratio] 26.0 mg/mg 10-20 [facility] Laboratory - Hematology and Cell countsOrdered By: Marcos Brown on 02-10-2023 Erythrocyte distribution width (RBC) [Entitic vol] 49.5 fL 35.1-43.9 [facility] Erythrocyte distribution width (RBC) [Ratio] 14.1 % 11.6-14.6 [facility] MCH (RBC) [Entitic mass] 29.9 pg 27.0-32.0 [facility] Auto (RBC) [Mass/Vol]Or dered By: Marcos Brown on 02-10-2023 MCHC (RBC) [Mass/Vol] 31.2 g/dL 32-36 [facility] No Panel InformationOrdered By: Marcos Brown on 02-10-2023 Estimated GFR (MDRD) Amer 54 mL/min >60 [facility] Comment on above: GFR Calc Estimated GFR (MDRD) Non-Af Amer 45 mL/min >60 [facility] Comment on above: Non- GFR Calc Thyroid Stimulating Hormone (TSH) 1.65 uIU/mL 0.358-3.74 [facility] Platelets bldOrdered By: Daisha Brown on 02-10-2023 Platelets (Bld) [#/Vol] 185 10*3/uL 150-450 [facility] Serum or plasma albumin thanh urement (mass/volume)Ordered By: Marcos Brown on 02-10-2023 Albumin [Mass/Vol] 2.5 g/dL 3.2-5.0 [facility] Serum or plasma albumin/glob ulin mass ratioOrdered By: Marcos Brown on 02-10-2023 Albumin/Globulin [Mass ratio] 0.9 {ratio} 0.9-2.4 [facility] Serum or plasma calcium thanh urement (mass/volume)Ordered By: Marcos Brown on 02-10-2023 Calcium [Mass/Vol] 8.7 mg/dL 8.5-10.1 [facility] Serum or plasma cholesterol in HDL measurement (mass/volume)Ordered By: Marcos Brown on 02-10-2023 Cholesterol in HDL [Mass/Vol] 39 mg/dL >40 [facility] Comment on above: The drugs N-Acetylcy steine and Metamizole may falsely depress this assay. Reference Range HDL <40 mg/dL Low HDL Cholesterol HDL >or= 60 mg/dL High HDL Cholesterol Serum or plasma cholesterol in VLDL measurement (mass/volume)Ordered By: Marcos Brown on 02-10-2023 Cholesterol in VLDL [Mass/Vol] 17 mg/dL 5-40 [facility] Serum or plasma creatinine m easurement (mass/volume)Ordered By: Marcos Brown on 02-10-2023 Creatinine [Mass/Vol] 1.23 mg/dL 0.55-1.02 [facility] Comment on above: The validity of the calculated GFR & GFRAA in patients over 70 years has not been determined. Clinical correlation is essential. Serum or plasma low density lipoprotein (LDL) cholesterol measurement (mass/volume)Ordered By: Marcos Brown on 02-10-2023 Cholesterol in LDL [Mass/Vol] 38 mg/dL 0-130 [facility] Serum or plasma urea nitroge n measurement (mass/volume)Ordered By: Marcos Brown on 02-10-2023 Urea nitrogen [Mass/Vol] 32 mg/dL 7-18 [facility] Thin prep Papanicolaou smear with manual screeningOrdered By: Marcos Brown on 02-10-2023 Thin prep Papanicolaou smear with manual screening 11 U/L 15-37 [facility] Thin prep Papanicolaou smear with manual screening 3 5-15 [facility] CNOVon 01-31-2023 CNOV Office Visit (UROLSF) MYRNA SARAVIA ([id number]) 1945 F Date Time Provider Department 01/31/23 1:15 PM LASHANDA ALBRECHT [facility] During your visit today, we recorded the following information about you: Pulse Blood pressure Weight Height 77/minute 114/56 75.3 kg 1.651 m Lashanda Albrecht APRN.PUBLIC ACCOUNTANT 01/31/2023 2:16 PM Signed ESTABLISHED PATIENT OFFICE [...] (no units) Date Value 12/03/2022 Negative Specific Ronceverte, Ur (no units) Date Value 12/03/2022 >=1.030 [...] - ICD (more content not included)... Normal [facility] CNOVon 01-10-2023 CNOV Office Visit (UROLSF) MYRNA SARAVIA ([id number]) 1945 F Date Time Provider Department 01/10/23 [...] stroke. She is currently in rehab at [place]. She does not want to have a [...] (no units) Date Value 12/03/2022 Negative Specific Ronceverte, Ur (no units) Date Value 12/03/2022 >=1.030 Hemoglobin/Blood,Ur (no units) Date Value 12/03/2022 Negative pH, Urine (no units) Date Value 12/03/2022 6.0 Protein, Urine (no units) Date Value 12/03/2022 Negative Urobilinogen (no units) Date Value 12/03/2022 0.2 EU/dL Nitrites (no units) Date Value 12/03/2022 Negative Leuk Esterase (no units) Date Value 12/03/2022 Negative MEDICATIONS: chlorthalidone (HYGROTON) 25 mg tablet [facility] 10 billion cell -200 mg capsule acetaminophen [...] MUSCULOSKELETAL: Negati (more content not included)... Normal [facility] CNOVon 12-20-2022 CNOV Office Visit (UROLSF) MYRNA SARAVIA ([id number]) 1945 F Date Time Provider Department 12/20/22 10:15 AM LASHANDA ALBRECHT During your visit today, we recorded the following information about you: Pulse Blood pressure Weight Height 63/minute 121/74 75.3 kg 1.651 m Lashanda Albrecht APRN.PUBLIC ACCOUNTANT 01/10/2023 10:21 AM Addendum NEW PATIENT HISTORY [...] stroke. She is currently in rehab at [facility]. She does not want to have a [...] (no units) Date Value 12/03/2022 Negative Specific [place], Ur (no units) Date Value 12/03/2022 >=1.030 [...] Back: Normal. ASSESSMENT/PLAN: 1. 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 R (more content not included)... Normal [facility] Basic metabolic 2000 panelon 12-09-2022 Anion gap [Moles/Vol] 10 mmol/L 9 - 18 mmol/L [facility] Calcium [Mass/Vol] 9.4 mg/dL 8.5 - 10. 2 mg/dL [facility] Chloride [Moles/Vol] 108 mmol/L High 97 - 10 5 mmol/L [facility] CO2 [Moles/Vol] 23 mmol/L 22 - 30 mmol/L [facility] Creatinine [Mass/Vol] 0.99 mg/dL High 0.58 - 0.96 mg/dL [facility] Estimated Glomerular Filtration Rate 58 mL/min/1.73m Low >=60 mL/min/1.73m [facility] Glucose [Mass/Vol] 83 mg/dL 74 - 99 mg/dL [facility] Potassium [Moles/Vol] 4.2 mmol/L 3.7 - 5.1 mmol/L [facility] Sodium [Moles/Vol] 141 mmol/L 136 - 144 mmol/L [facility] Urea nitrogen [Mass/Vol] 40 mg/dL High 7 - 21 mg/d L [facility] Anion gap [Moles/Vol] 10 mmol/L Normal 9-18 [facility] Comment on above: Order Comment: Speci men Type: BLOOD SPECIMENOrdering Facility: [facility] Address: [address] [place] [address] Performed By: #### 2 4321-2 ####BERRIOS LABORATORYCLIA [id number] [place] [address] [place] Calcium [Mass/Vol] 9.4 mg/dL Normal 8.5-10.2 [facility] Comment on above: Order Comment: Speci men Type: BLOOD SPECIMENOrdering Facility: [facility] Address: [address] [place] [address] Performed By: #### 2 4321-2 ####BERRIOS LABORATORYCLIA [id number] [place] [address] [place] Chloride [Moles/Vol] 108 mmol/L High 97-105 [facility] Comment on above: Order Comment: Speci men Type: BLOOD SPECIMENOrdering Facility: [facility] Address: [address] [place] [address] Performed By: #### 2 4321-2 ####BERRIOS LABORATORYCLIA [id number] [place] [id number] [place] CO2 [Moles/Vol] 23 mmol/L Normal 22-30 [facility] Comment on above: Order Comment: Speci men Type: BLOOD SPECIMENOrdering Facility: [facility] Address: [address] [place] [address] Performed By: #### 2 4321-2 ####BERRIOS LABORATORYCLIA [id number] [address] [place] Creatinine [Mass/Vol] 0.99 mg/dL High 0.58-0.96 [facility] Comment on above: Order Comment: Speci men Type: BLOOD SPECIMENOrdering Facility: [facility] Address: [address] [place] [address] Performed By: #### 2 4321-2 ####BERRIOS LABORATORYCLIA [id number] [address] ESTIMATED GLOMERULAR FILTRATION RATE 58 mL/min/1.73m??? Low >=60 [facility] Comment on above: Order Comment: Speci men Type: BLOOD SPECIMENOrdering Facility: [facility] Address: [address] [place] [address] Result Comment: Caroline mated Glomerular Filtration Rate [...] Performed By: #### 2 4321-2 ####BERRIOS LABORATORYCLIA [id number] [place] [address] [place] Glucose [Mass/Vol] 83 mg/dL Normal 74-99 [facility] Comment on above: Order Comment: Speci men Type: BLOOD SPECIMENOrdering Facility: [facility] Address: [address] [place] [address] Result Comment: The [place] [employer] (ADA) provides guidance for cutoff [...] Standards of Medical Care in Diabetes 2016, [place] [employer]. Diabetes Care. 2016.39(Suppl 1). Performed By: #### 2 4321-2 ####BERRIOS LABORATORYCLIA [id number] [place] [address] [place] Potassium [Moles/Vol] 4.2 mmol/L Normal 3.7-5.1 [facility] Comment on above: Order Comment: Jordyn stef Type: BLOOD SPECIMENOrdering Facility: [facility] Address: [address] [place] [address] Performed By: #### 2 4321-2 ####BERRIOS LABORATORYCLIA [id number] [place] [address] [place] Sodium [Moles/Vol] 141 mmol/L Normal 136-144 [facility] Comment on above: Order Comment: Feii men Type: BLOOD SPECIMENOrdering Facility: [facility] Address: [address] [place] [address] Performed By: #### 2 4321-2 ####BERRIOS LABORATORYCLIA [id number] [place] [address] [place] Urea nitrogen [Mass/Vol] 40 mg/dL High 7-21 [facility] Comment on above: Order Comment: Feii men Type: BLOOD SPECIMENOrdering Facility: [facility] Address: [address] [place] [address] Performed By: #### 2 4321-2 ####[facility] LABORATORYCLIA [id number] [place] [address] [place] CBC W Auto Differential pane l (Bld)on 12-09-2022 Basophils (Bld) [#/Vol] 0.04 10*3/uL <0.11 k/uL [facility] Basophils/100 WBC (Bld) 0.8 % [facility] Differential cell count method Nom (Bld) Auto [facility] Eosinophils (Bld) [#/Vol] 0.34 10*3/uL <0.46 k/uL [facility] Eosinophils/100 WBC (Bld) 6.6 % [facility] Erythrocyte distribution width (RBC) [Ratio] 14.7 % 11.5 - 15.0 % [facility] Hematocrit (Bld) [Volume fraction] 34.2 % Low 36.0 - 46.0 % [facility] Hemoglobin (Bld) [Mass/Vol] 10.8 g/dL Low 11.5 - 15.5 g/dL [facility] Immature granulocytes (Bld) [#/Vol] 0.03 10*3/uL <0.10 k/uL [facility] Immature granulocytes/100 WBC (Bld) 0.6 % [facility] Lymphocytes (Bld) [#/Vol] 1.60 10*3/uL 1.00 - 4.00 k/uL [facility] Lymphocytes/100 WBC (Bld) 31.2 % [facility] MCH (RBC) [Entitic mass] 30.8 pg 26. 0 - 34.0 pg [facility] MCHC (RBC) [Mass/Vol] 31.6 g/dL 30.5 - 36.0 g/dL [facility] MCV (RBC) [Entitic vol] 97.4 fL 80.0 - 100.0 fL [facility] Monocytes (Bld) [#/Vol] 0.61 10*3/uL <0.87 k/uL [facility] Monocytes/100 WBC (Bld) 11.9 % [facility] Neutrophils (Bld) [#/Vol] 2.51 10*3/uL 1.45 - 7.50 k/uL [facility] Neutrophils/100 WBC (Bld) 48.9 % [facility] Nucleated RBC (Bld) [#/Vol] <0.01 k/uL [facility] Nucleated RBC/100 WBC (Bld) [Ratio] 0.0 /100 WBC [facility] Platelet mean volume (Bld) [Entitic vol] 10.4 fL 9.0 - 12.7 fL [facility] Platelets (Bld) [#/Vol] 170 10*3/uL 150 - 400 k/uL [facility] RBC (Bld) [#/Vol] 3.51 10*6/uL Low 3.90 - 5.2 0 m/uL [facility] WBC (Bld) [#/Vol] 5.13 10*3/uL 3.70 - 11. 00 k/uL [facility] Basophils (Bld) [#/Vol] 0.04 10*3/uL Normal <0.11 [facility] Comment on above: Order Comment: Speci men Type: BLOOD SPECIMENOrdering Facility: [facility] Address: [address] [place] [address] Performed By: #### 5 7021-8 ####BERRIOS LABORATORYCLIA [id number] [place] [address] [place] Basophils/100 WBC (Bld) 0.8 % Normal [facility] Comment on above: Order Comment: Speci men Type: BLOOD SPECIMENOrdering Facility: [facility] Address: [address] [place] [address] Performed By: #### 5 7021-8 ####BERRIOS LABORATORYCLIA [id number] [place] [address] [place] Differential cell count method Nom (Bld) Auto Normal [facility] Comment on above: Order Comment: Speci men Type: BLOOD SPECIMENOrdering Facility: [facility] Address: [address] [place] [address] Performed By: #### 5 7021-8 ####BERRIOS LABORATORYCLIA [id number] [place] [address] [place] Eosinophils (Bld) [#/Vol] 0.34 10*3/uL Normal <0.46 [facility] Comment on above: Order Comment: Speci men Type: BLOOD SPECIMENOrdering Facility: [facility] Address: [address] [place] [address] Performed By: #### 5 7021-8 ####BERRIOS LABORATORYCLIA [id number] [place] [address] [place] Eosinophils/100 WBC (Bld) 6.6 % Normal [facility] Comment on above: Order Comment: Speci men Type: BLOOD SPECIMENOrdering Facility: [facility] Address: [address] [place] [address] Performed By: #### 5 7021-8 ####BERRIOS LABORATORYCLIA [id number] [place] [address] [place] Erythrocyte distribution width (RBC) [Ratio] 14.7 % Normal 11.5-15.0 [facility] Comment on above: Order Comment: Speci men Type: BLOOD SPECIMENOrdering Facility: [facility] Address: [address] [place] [address] Performed By: #### 5 7021-8 ####BERRIOS LABORATORYCLIA [id number] [place] [address] [place] Hematocrit (Bld) [Volume fraction] 34.2 % Low 36.0-46.0 [facility] Comment on above: Order Comment: Speci men Type: BLOOD SPECIMENOrdering Facility: [facility] Address: [address] [place] [address] Performed By: #### 5 7021-8 ####BERRIOS LABORATORYCLIA [id number] [place] [address] [place] Hemoglobin (Bld) [Mass/Vol] 10.8 g/dL Low 11.5-15.5 [facility] Comment on above: Order Comment: Speci men Type: BLOOD SPECIMENOrdering Facility: [facility] Address: [address] [place] [address] Performed By: #### 5 7021-8 ####BERRIOS LABORATORYCLIA [id number] [place] [address] [place] Immature granulocytes (Bld) [#/Vol] 0.03 10*3/uL Normal <0.10 [facility] Comment on above: Order Comment: Speci men Type: BLOOD SPECIMENOrdering Facility: [facility] Address: [address] [place] [address] Performed By: #### 5 7021-8 ####BERRIOS LABORATORYCLIA [id number] [address] [place] Immature granulocytes/100 WBC (Bld) 0.6 % Normal [facility] Comment on above: Order Comment: Speci men Type: BLOOD SPECIMENOrdering Facility: [facility] Address: [address] [place] [address] Performed By: #### 5 7021-8 ####BERRIOS LABORATORYCLIA [id number] [address] [place] Lymphocytes (Bld) [#/Vol] 1.60 10*3/uL Normal 1.00-4.00 [facility] Comment on above: Order Comment: Speci men Type: BLOOD SPECIMENOrdering Facility: [facility] Address: [address] [place] [address] Performed By: #### 5 7021-8 ####BERRIOS LABORATORYCLIA [id number] [address] Lymphocytes/100 WBC (Bld) 31.2 % Normal [facility] Comment on above: Order Comment: Speci men Type: BLOOD SPECIMENOrdering Facility: [facility] Address: [address] [place] [address] Performed By: #### 5 7021-8 ####BERRIOS LABORATORYCLIA [id number] [place] [address] [place] MCH (RBC) [Entitic mass] 30.8 pg Normal 26.0-34.0 [facility] Comment on above: Order Comment: Speci men Type: BLOOD SPECIMENOrdering Facility: [facility] Address: [address] [place] [address] Performed By: #### 5 7021-8 ####BERRIOS LABORATORYCLIA [id number] [address] [place] MCHC (RBC) [Mass/Vol] 31.6 g/dL Normal 30.5-36.0 [facility] Comment on above: Order Comment: Speci men Type: BLOOD SPECIMENOrdering Facility: [facility] Address: [address] [place] [address] Performed By: #### 5 7021-8 ####BERRIOS LABORATORYCLIA [id number] [place] [address] [place] MCV (RBC) [Entitic vol] 97.4 fL Normal 80.0-100.0 [facility] Comment on above: Order Comment: Speci men Type: BLOOD SPECIMENOrdering Facility: [facility] Address: [address] [place] [address] Performed By: #### 5 7021-8 ####BERRIOS LABORATORYCLIA [id number] [place] [address] [place] Monocytes (Bld) [#/Vol] 0.61 10*3/uL Normal <0.87 [facility] Comment on above: Order Comment: Speci men Type: BLOOD SPECIMENOrdering Facility: [facility] Address: [address] [place] [address] Performed By: #### 5 7021-8 ####BERRIOS LABORATORYCLIA [id number] [address] [place] Monocytes/100 WBC (Bld) 11.9 % Normal [facility] Comment on above: Order Comment: Speci men Type: BLOOD SPECIMENOrdering Facility: [facility] Address: [address] [place] [address] Performed By: #### 5 7021-8 ####BERRIOS LABORATORYCLIA [id number] [place] [address] [place] Neutrophils (Bld) [#/Vol] 2.51 10*3/uL Normal 1.45-7.50 [facility] Comment on above: Order Comment: Speci men Type: BLOOD SPECIMENOrdering Facility: [facility] Address: [address] [place] [address] Performed By: #### 5 7021-8 ####BERRIOS LABORATORYCLIA [id number] [place] [address] [place] Neutrophils/100 WBC (Bld) 48.9 % Normal [facility] Comment on above: Order Comment: Speci men Type: BLOOD SPECIMENOrdering Facility: [facility] Address: [address] [place] [address] Performed By: #### 5 7021-8 ####BERRIOS LABORATORYCLIA [id number] [place] [address] [place] Nucleated RBC (Bld) [#/Vol] 10*3/uL Normal <0.01 [facility] Comment on above: Order Comment: Speci men Type: BLOOD SPECIMENOrdering Facility: [facility] Address: [address] [place] [address] Performed By: #### 5 7021-8 ####BERRIOS LABORATORYCLIA [id number] [place] [address] [place] Nucleated RBC/100 WBC (Bld) [Ratio] 0.0 /100 WBC Normal [facility] Comment on above: Order Comment: Speci men Type: BLOOD SPECIMENOrdering Facility: [facility] Address: [address] [place] [address] Performed By: #### 5 7021-8 ####BERRIOS LABORATORYCLIA [id number] [place] [address] [place] Platelet mean volume (Bld) [Entitic vol] 10.4 fL Normal 9.0-12.7 [facility] Comment on above: Order Comment: Speci men Type: BLOOD SPECIMENOrdering Facility: [facility] Address: [address] [place] [address] Performed By: #### 5 7021-8 ####BERRIOS LABORATORYCLIA [id number] [place] [address] [place] Platelets (Bld) [#/Vol] 170 10*3/uL Normal 150-400 [facility] Comment on above: Order Comment: Speci men Type: BLOOD SPECIMENOrdering Facility: [facility] Address: [address] [place] [address] Performed By: #### 5 7021-8 ####BERRIOS LABORATORYCLIA [id number] [address] RBC (Bld) [#/Vol] 3.51 10*6/uL Low 3.90-5.20 [facility] Comment on above: Order Comment: Speci men Type: BLOOD SPECIMENOrdering Facility: [facility] Address: [address] [place] [address] Performed By: #### 5 7021-8 ####BERRIOS LABORATORYCLIA [id number] [address] WBC (Bld) [#/Vol] 5.13 10*3/uL Normal 3.70-11.00 [facility] Comment on above: Order Comment: Speci men Type: BLOOD SPECIMENOrdering Facility: [facility] Address: [address] [place] [address] Performed By: #### 5 7021-8 ####BRERIOS LABORATORYCLIA [id number] [place] [id number] [place] Basic metabolic 2000 panelon 12-05-2022 Anion gap [Moles/Vol] 12 mmol/L 9 - 18 mmol/L [facility] Calcium [Mass/Vol] 9.5 mg/dL 8.5 - 10. 2 mg/dL [facility] Chloride [Moles/Vol] 109 mmol/L High 97 - 10 5 mmol/L [facility] CO2 [Moles/Vol] 23 mmol/L 22 - 30 mmol/L [facility] Creatinine [Mass/Vol] 1.11 mg/dL High 0.58 - 0.96 mg/dL [facility] Estimated Glomerular Filtration Rate 51 mL/min/1.73m Low >=60 mL/min/1.73m [facility] Glucose [Mass/Vol] 96 mg/dL 74 - 99 mg/dL [facility] Potassium [Moles/Vol] 4.4 mmol/L 3.7 - 5.1 mmol/L [facility] Sodium [Moles/Vol] 144 mmol/L 136 - 144 mmol/L [facility] Urea nitrogen [Mass/Vol] 39 mg/dL High 7 - 21 mg/d L [facility] Anion gap [Moles/Vol] 12 mmol/L Normal 9-18 [facility] Comment on above: Order Comment: Speci men Type: BLOOD SPECIMENOrdering Facility: [facility] Address: [address] [place] [address] Performed By: #### 2 4321-2 ####BERRIOS LABORATORYCLIA [id number] [place] [address] [place] Calcium [Mass/Vol] 9.5 mg/dL Normal 8.5-10.2 [facility] Comment on above: Order Comment: Speci men Type: BLOOD SPECIMENOrdering Facility: [facility] Address: [address] [place] [address] Performed By: #### 2 4321-2 ####BERRIOS LABORATORYCLIA [id number] [place] [address] [place] Chloride [Moles/Vol] 109 mmol/L High 97-105 [facility] Comment on above: Order Comment: Speci men Type: BLOOD SPECIMENOrdering Facility: [facility] Address: [address] [place] [address] Performed By: #### 2 4321-2 ####BERRIOS LABORATORYCLIA [id number] [place] [address] [place] CO2 [Moles/Vol] 23 mmol/L Normal 22-30 [facility] Comment on above: Order Comment: Speci men Type: BLOOD SPECIMENOrdering Facility: [facility] Address: [address] [place] [address] Performed By: #### 2 4321-2 ####BERRIOS LABORATORYCLIA [id number] [place] [id number] [place] Creatinine [Mass/Vol] 1.11 mg/dL High 0.58-0.96 [facility] Comment on above: Order Comment: Speci men Type: BLOOD SPECIMENOrdering Facility: [facility] Address: [address] [place] [address] Performed By: #### 2 4321-2 ####BERRIOS LABORATORYCLIA [id number] [place] [address] [place] ESTIMATED GLOMERULAR FILTRATION RATE 51 mL/min/1.73m??? Low >=60 [facility] Comment on above: Order Comment: Jordyn finch Type: BLOOD SPECIMENOrdering Facility: [facility] Address: [address] [place] [address] Result Comment: Caroline mated Glomerular Filtration Rate [...] Performed By: #### 2 4321-2 ####BERRIOS LABORATORYCLIA [id number] [place] [address] [place] Glucose [Mass/Vol] 96 mg/dL Normal 74-99 [facility] Comment on above: Order Comment: Specquita finch Type: BLOOD SPECIMENOrdering Facility: [facility] Address: [address] [place] [address] Result Comment: The [place] [employer] (ADA) provides guidance for cutoff [...] Standards of Medical Care in Diabetes 2016, [place] [employer]. Diabetes Care. 2016.39(Suppl 1). Performed By: #### 2 4321-2 ####BERRIOS LABORATORYCLIA [id number] [place] [address] [place] Potassium [Moles/Vol] 4.4 mmol/L Normal 3.7-5.1 [facility] Comment on above: Order Comment: Speci men Type: BLOOD SPECIMENOrdering Facility: [facility] Address: [address] [place] [address] Performed By: #### 2 4321-2 ####BERRIOS LABORATORYCLIA [id number] [address] [facility] Sodium [Moles/Vol] 144 mmol/L Normal 136-144 [facility] Comment on above: Order Comment: Speci men Type: BLOOD SPECIMENOrdering Facility: [facility] Address: [address] [place] [address] Performed By: #### 2 4321-2 ####BERRIOS LABORATORYCLIA [id number] [address] [place] Urea nitrogen [Mass/Vol] 39 mg/dL High 7-21 [facility] Comment on above: Order Comment: Speci men Type: BLOOD SPECIMENOrdering Facility: [facility] Address: [address] [place] [address] Performed By: #### 2 4321-2 ####BERRIOS LABORATORYCLIA [id number] [address] [place] CBC W Auto Differential pane l (Bld)on 12-05-2022 Basophils (Bld) [#/Vol] 0.04 10*3/uL <0.11 k/uL [facility] Basophils/100 WBC (Bld) 0.8 % [facility] Differential cell count method Nom (Bld) Auto [facility] Eosinophils (Bld) [#/Vol] 0.29 10*3/uL <0.46 k/uL [facility] Eosinophils/100 WBC (Bld) 5.9 % [facility] Erythrocyte distribution width (RBC) [Ratio] 14.5 % 11.5 - 15.0 % [facility] Hematocrit (Bld) [Volume fraction] 33.5 % Low 36.0 - 46.0 % [facility] Hemoglobin (Bld) [Mass/Vol] 10.7 g/dL Low 11.5 - 15.5 g/dL [facility] Immature granulocytes (Bld) [#/Vol] <0.10 k/uL [facility] Immature granulocytes/100 WBC (Bld) 0.4 % [facility] Lymphocytes (Bld) [#/Vol] 1.43 10*3/uL 1.00 - 4.00 k/uL [facility] Lymphocytes/100 WBC (Bld) 29.0 % [facility] MCH (RBC) [Entitic mass] 30.8 pg 26. 0 - 34.0 pg [facility] MCHC (RBC) [Mass/Vol] 31.9 g/dL 30.5 - 36.0 g/dL [facility] MCV (RBC) [Entitic vol] 96.5 fL 80.0 - 100.0 fL [facility] Monocytes (Bld) [#/Vol] 0.61 10*3/uL <0.87 k/uL [facility] Monocytes/100 WBC (Bld) 12.4 % [facility] Neutrophils (Bld) [#/Vol] 2.54 10*3/uL 1.45 - 7.50 k/uL [facility] Neutrophils/100 WBC (Bld) 51.5 % [facility] Nucleated RBC (Bld) [#/Vol] <0.01 k/uL [facility] Nucleated RBC/100 WBC (Bld) [Ratio] 0.0 /100 WBC [facility] Platelet mean volume (Bld) [Entitic vol] 10.7 fL 9.0 - 12.7 fL [facility] Platelets (Bld) [#/Vol] 169 10*3/uL 150 - 400 k/uL [facility] RBC (Bld) [#/Vol] 3.47 10*6/uL Low 3.90 - 5.2 0 m/uL [facility] WBC (Bld) [#/Vol] 4.93 10*3/uL 3.70 - 11. 00 k/uL [facility] Basophils (Bld) [#/Vol] 0.04 10*3/uL Normal <0.11 [facility] Comment on above: Order Comment: Speci men Type: BLOOD SPECIMENOrdering Facility: [facility] Address: [address] [place] [address] Performed By: #### 5 7021-8 ####BERRIOS LABORATORYCLIA [id number] [address] OF [facility] Basophils/100 WBC (Bld) 0.8 % Normal [facility] Comment on above: Order Comment: Speci men Type: BLOOD SPECIMENOrdering Facility: [facility] Address: [address] [place] [address] Performed By: #### 5 7021-8 ####BERRIOS LABORATORYCLIA [id number] [place] [address] [place] Differential cell count method Nom (Bld) Auto Normal [facility] Comment on above: Order Comment: Speci men Type: BLOOD SPECIMENOrdering Facility: [facility] Address: [address] [place] [address] Performed By: #### 5 7021-8 ####BERRIOS LABORATORYCLIA [id number] [place] [address] [place] Eosinophils (Bld) [#/Vol] 0.29 10*3/uL Normal <0.46 [facility] Comment on above: Order Comment: Speci men Type: BLOOD SPECIMENOrdering Facility: [facility] Address: [address] [place] [address] Performed By: #### 5 7021-8 ####BERRIOS LABORATORYCLIA [id number] [place] [address] [place] Eosinophils/100 WBC (Bld) 5.9 % Normal [facility] Comment on above: Order Comment: Speci men Type: BLOOD SPECIMENOrdering Facility: [facility] Address: [address] [place] [address] Performed By: #### 5 7021-8 ####BERRIOS LABORATORYCLIA [id number] [address] [place] Erythrocyte distribution width (RBC) [Ratio] 14.5 % Normal 11.5-15.0 [facility] Comment on above: Order Comment: Speci men Type: BLOOD SPECIMENOrdering Facility: [facility] Address: [address] [place] [address] Performed By: #### 5 7021-8 ####BERRIOS LABORATORYCLIA [id number] [place] [address] [place] Hematocrit (Bld) [Volume fraction] 33.5 % Low 36.0-46.0 [facility] Comment on above: Order Comment: Speci men Type: BLOOD SPECIMENOrdering Facility: [facility] Address: [address] [place] [address] Performed By: #### 5 7021-8 ####BERRIOS LABORATORYCLIA [id number] [place] [address] [place] Hemoglobin (Bld) [Mass/Vol] 10.7 g/dL Low 11.5-15.5 [facility] Comment on above: Order Comment: Speci men Type: BLOOD SPECIMENOrdering Facility: [facility] Address: [address] [place] [address] Performed By: #### 5 7021-8 ####BERRIOS LABORATORYCLIA [id number] [place] [address] [place] Immature granulocytes (Bld) [#/Vol] 10*3/uL Normal <0.10 [facility] Comment on above: Order Comment: Speci men Type: BLOOD SPECIMENOrdering Facility: [facility] Address: [address] [place] [address] Performed By: #### 5 7021-8 ####BERRIOS LABORATORYCLIA [id number] [place] [address] [place] Immature granulocytes/100 WBC (Bld) 0.4 % Normal [facility] Comment on above: Order Comment: Speci men Type: BLOOD SPECIMENOrdering Facility: [facility] Address: [address] [place] [address] Performed By: #### 5 7021-8 ####BERRIOS LABORATORYCLIA [id number] [place] [id number] [place] Lymphocytes (Bld) [#/Vol] 1.43 10*3/uL Normal 1.00-4.00 [facility] Comment on above: Order Comment: Speci men Type: BLOOD SPECIMENOrdering Facility: [facility] Address: [address] [place] [address] Performed By: #### 5 7021-8 ####BERRIOS LABORATORYCLIA [id number] [address] [place] Lymphocytes/100 WBC (Bld) 29.0 % Normal [facility] Comment on above: Order Comment: Speci men Type: BLOOD SPECIMENOrdering Facility: [facility] Address: [address] [place] [address] Performed By: #### 5 7021-8 ####BERRIOS LABORATORYCLIA [id number] [place] [address] [place] MCH (RBC) [Entitic mass] 30.8 pg Normal 26.0-34.0 [facility] Comment on above: Order Comment: Speci men Type: BLOOD SPECIMENOrdering Facility: [facility] Address: [address] [place] [address] Performed By: #### 5 7021-8 ####BERRIOS LABORATORYCLIA [id number] [address] [place] MCHC (RBC) [Mass/Vol] 31.9 g/dL Normal 30.5-36.0 [facility] Comment on above: Order Comment: Speci men Type: BLOOD SPECIMENOrdering Facility: [facility] Address: [address] [place] [address] Performed By: #### 5 7021-8 ####BERRIOS LABORATORYCLIA [id number] [address] [place] MCV (RBC) [Entitic vol] 96.5 fL Normal 80.0-100.0 [facility] Comment on above: Order Comment: Speci men Type: BLOOD SPECIMENOrdering Facility: [facility] Address: [address] [place] [address] Performed By: #### 5 7021-8 ####BERRIOS LABORATORYCLIA [id number] [address] [place] Monocytes (Bld) [#/Vol] 0.61 10*3/uL Normal <0.87 [facility] Comment on above: Order Comment: Speci men Type: BLOOD SPECIMENOrdering Facility: [facility] Address: [address] [place] [address] Performed By: #### 5 7021-8 ####BERRIOS LABORATORYCLIA [id number] [place] [address] [place] Monocytes/100 WBC (Bld) 12.4 % Normal [facility] Comment on above: Order Comment: Speci men Type: BLOOD SPECIMENOrdering Facility: [facility] Address: [address] [place] [address] Performed By: #### 5 7021-8 ####BERRIOS LABORATORYCLIA [id number] [place] [address] [place] Neutrophils (Bld) [#/Vol] 2.54 10*3/uL Normal 1.45-7.50 [facility] Comment on above: Order Comment: Speci men Type: BLOOD SPECIMENOrdering Facility: [facility] Address: [address] [place] [address] Performed By: #### 5 7021-8 ####BERRIOS LABORATORYCLIA [id number] [address] [place] Neutrophils/100 WBC (Bld) 51.5 % Normal [facility] Comment on above: Order Comment: Speci men Type: BLOOD SPECIMENOrdering Facility: [facility] Address: [address] [place] [address] Performed By: #### 5 7021-8 ####BERRIOS LABORATORYCLIA [id number] [place] [address] [place] Nucleated RBC (Bld) [#/Vol] 10*3/uL Normal <0.01 [facility] Comment on above: Order Comment: Speci men Type: BLOOD SPECIMENOrdering Facility: [facility] Address: [address] [place] [address] Performed By: #### 5 7021-8 ####BERRIOS LABORATORYCLIA [id number] [address] [place] Nucleated RBC/100 WBC (Bld) [Ratio] 0.0 /100 WBC Normal [facility] Comment on above: Order Comment: Speci men Type: BLOOD SPECIMENOrdering Facility: [facility] Address: [address] [place] [address] Performed By: #### 5 7021-8 ####BERRIOS LABORATORYCLIA [id number] [place] [address] [place] Platelet mean volume (Bld) [Entitic vol] 10.7 fL Normal 9.0-12.7 [facility] Comment on above: Order Comment: Speci men Type: BLOOD SPECIMENOrdering Facility: [facility] Address: [address] [place] [address] Performed By: #### 5 7021-8 ####BERRIOS LABORATORYCLIA [id number] [place] [id number] [place] Platelets (Bld) [#/Vol] 169 10*3/uL Normal 150-400 [facility] Comment on above: Order Comment: Speci men Type: BLOOD SPECIMENOrdering Facility: [facility] Address: [address] [place] [address] Performed By: #### 5 7021-8 ####BERRIOS LABORATORYCLIA [id number] [place] [address] [place] RBC (Bld) [#/Vol] 3.47 10*6/uL Low 3.90-5.20 [facility] Comment on above: Order Comment: Speci men Type: BLOOD SPECIMENOrdering Facility: [facility] Address: [address] [place] [address] Performed By: #### 5 7021-8 ####BERRIOS LABORATORYCLIA [id number] [place] [id number] [place] WBC (Bld) [#/Vol] 4.93 10*3/uL Normal 3.70-11.00 [facility] Comment on above: Order Comment: Speci men Type: BLOOD SPECIMENOrdering Facility: [facility] Address: [address] [place] [address] Performed By: #### 5 7021-8 ####BERRIOS LABORATORYCLIA [id number] [place] [id number] [place] Basic metabolic 2000 panelon 12-02-2022 Anion gap [Moles/Vol] 11 mmol/L Normal 9-18 [facility] Comment on above: Order Comment: Speci men Type: BLOOD SPECIMENOrdering Facility: [facility] Address: [address] [place] [address] Performed By: #### 2 4321-2 ####DEREJECREST LABORATORYCLIA [id number] [place] [address] [place] Calcium [Mass/Vol] 9.4 mg/dL Normal 8.5-10.2 [facility] Comment on above: Order Comment: Speci men Type: BLOOD SPECIMENOrdering Facility: [facility] Address: [address] [place] [address] Performed By: #### 2 4321-2 ####DEREJECREST LABORATORYCLIA [id number] [place] [address] [place] Chloride [Moles/Vol] 107 mmol/L High 97-105 [facility] Comment on above: Order Comment: Speci men Type: BLOOD SPECIMENOrdering Facility: [facility] Address: [address] [place] [address] Performed By: #### 2 4321-2 ####DEREJECREST LABORATORYCLIA [id number] [place] [address] [place] CO2 [Moles/Vol] 23 mmol/L Normal 22-30 [facility] Comment on above: Order Comment: Speci men Type: BLOOD SPECIMENOrdering Facility: [facility] Address: [address] [place] [address] Performed By: #### 2 4321-2 ####HILLCREST LABORATORYCLIA [id number] [place] [address] [place] Creatinine [Mass/Vol] 1.04 mg/dL High 0.58-0.96 [facility] Comment on above: Order Comment: Speci men Type: BLOOD SPECIMENOrdering Facility: [facility] Address: [address] [place] [address] Performed By: #### 2 4321-2 ####DEREJECREST LABORATORYCLIA [id number] [place] [address] [place] Estimated Glomerular Filtration Rate 55 mL/min/1.73m Low >=60 mL/min/1.73m [facility] Glucose [Mass/Vol] 104 mg/dL High 74-99 [facility] Comment on above: Order Comment: Speci men Type: BLOOD SPECIMENOrdering Facility: [facility] Address: [address] [place] [address] Result Comment: The [place] [employer] (ADA) provides guidance for cutoff [...] Standards of Medical Care in Diabetes 2016, [place] [employer]. Diabetes Care. 2016.39(Suppl 1). Performed By: #### 2 4321-2 ####HILLCREST LABORATORYCLIA [id number] [place] [address] [place] Potassium [Moles/Vol] 4.2 mmol/L Normal 3.7-5.1 [facility] Comment on above: Order Comment: Speci men Type: BLOOD SPECIMENOrdering Facility: [facility] Address: [address] [place] [address] Performed By: #### 2 4321-2 ####HILLCREST LABORATORYCLIA [id number] [place] [address] [place] Sodium [Moles/Vol] 141 mmol/L Normal 136-144 [facility] Comment on above: Order Comment: Speci men Type: BLOOD SPECIMENOrdering Facility: [facility] Address: [address] [place] [address] Performed By: #### 2 4321-2 ####HILLCREST LABORATORYCLIA [id number] [place] [address] [place] Urea nitrogen [Mass/Vol] 41 mg/dL High 7-21 [facility] Comment on above: Order Comment: Speci men Type: BLOOD SPECIMENOrdering Facility: [facility] Address: [address] [place] [address] Performed By: #### 2 4321-2 ####HILLCREST LABORATORYCLIA [id number] [place] [address] [place] ESTIMATED GLOMERULAR FILTRATION RATE 55 mL/min/1.73m??? Low >=60 [facility] Comment on above: Order Comment: Speci men Type: BLOOD SPECIMENOrdering Facility: [facility] Address: [address] [place] [address] Result Comment: Caroline mated Glomerular Filtration Rate [...] Performed By: #### 2 4321-2 ####HILLCREST LABORATORYCLIA [id number] [place] [address] [place] CBC W Auto Differential pane l (Bld)on 12-02-2022 Basophils (Bld) [#/Vol] 0.03 10*3/uL Normal <0.11 [facility] Comment on above: Order Comment: Speci men Type: BLOOD SPECIMENOrdering Facility: [facility] Address: [address] [place] [address] Performed By: #### 5 7021-8 ####DEREJECREST LABORATORYCLIA [id number] [address] [place] Basophils/100 WBC (Bld) 0.6 % Normal [facility] Comment on above: Order Comment: Speci men Type: BLOOD SPECIMENOrdering Facility: [facility] Address: [address] [place] [address] Performed By: #### 5 7021-8 ####DEREJECREST LABORATORYCLIA [id number] [place] [address] [place] Differential cell count method Nom (Bld) Auto Normal [facility] Comment on above: Order Comment: Speci men Type: BLOOD SPECIMENOrdering Facility: [facility] Address: [address] [place] [address] Performed By: #### 5 7021-8 ####DEREJECREST LABORATORYCLIA [id number] [place] [address] [place] Eosinophils (Bld) [#/Vol] 0.27 10*3/uL Normal <0.46 [facility] Comment on above: Order Comment: Speci men Type: BLOOD SPECIMENOrdering Facility: [facility] Address: [address] [place] [address] Performed By: #### 5 7021-8 ####DEREJECREST LABORATORYCLIA [id number] [place] [address] [place] Eosinophils/100 WBC (Bld) 5.6 % Normal [facility] Comment on above: Order Comment: Speci men Type: BLOOD SPECIMENOrdering Facility: [facility] Address: [address] [place] [address] Performed By: #### 5 7021-8 ####DEREJECREST LABORATORYCLIA [id number] [address] [place] Erythrocyte distribution width (RBC) [Ratio] 14.3 % Normal 11.5-15.0 [facility] Comment on above: Order Comment: Speci men Type: BLOOD SPECIMENOrdering Facility: [facility] Address: [address] [place] [address] Performed By: #### 5 7021-8 ####HILLCREST LABORATORYCLIA [id number] [place] [address] [place] Hematocrit (Bld) [Volume fraction] 35.5 % Low 36.0-46.0 [facility] Comment on above: Order Comment: Speci men Type: BLOOD SPECIMENOrdering Facility: [facility] Address: [address] [place] [address] Performed By: #### 5 7021-8 ####HILLCREST LABORATORYCLIA [id number] [place] [address] [place] Hemoglobin (Bld) [Mass/Vol] 12.3 g/dL Normal 11.5-15.5 [facility] Comment on above: Order Comment: Speci men Type: BLOOD SPECIMENOrdering Facility: [facility] Address: [address] [place] [address] Performed By: #### 5 7021-8 ####DEREJECREST LABORATORYCLIA [id number] [place] [address] [place] Immature granulocytes (Bld) [#/Vol] <0.10 k/uL [facility] Immature granulocytes/100 WBC (Bld) 0.4 % Normal [facility] Comment on above: Order Comment: Speci men Type: BLOOD SPECIMENOrdering Facility: [facility] Address: [address] [place] [address] Performed By: #### 5 7021-8 ####DEREJECREST LABORATORYCLIA [id number] [place] [address] [place] Lymphocytes (Bld) [#/Vol] 1.12 10*3/uL Normal 1.00-4.00 [facility] Comment on above: Order Comment: Speci men Type: BLOOD SPECIMENOrdering Facility: [facility] Address: [address] [place] [address] Performed By: #### 5 7021-8 ####DEREJECREST LABORATORYCLIA [id number] [place] [address] [place] Lymphocytes/100 WBC (Bld) 23.3 % Normal [facility] Comment on above: Order Comment: Speci men Type: BLOOD SPECIMENOrdering Facility: [facility] Address: [address] [place] [address] Performed By: #### 5 7021-8 ####HILLCREST LABORATORYCLIA [id number] [place] [address] [place] MCH (RBC) [Entitic mass] 33.2 pg Normal 26.0-34.0 [facility] Comment on above: Order Comment: Speci men Type: BLOOD SPECIMENOrdering Facility: [facility] Address: [address] [place] [address] Performed By: #### 5 7021-8 ####DEREJECREST LABORATORYCLIA [id number] [place] [address] [place] MCHC (RBC) [Mass/Vol] 34.6 g/dL Normal 30.5-36.0 [facility] Comment on above: Order Comment: Speci men Type: BLOOD SPECIMENOrdering Facility: [facility] Address: [address] [place] [address] Performed By: #### 5 7021-8 ####DEREJECREST LABORATORYCLIA [id number] [place] [address] [place] MCV (RBC) [Entitic vol] 95.9 fL Normal 80.0-100.0 [facility] Comment on above: Order Comment: Speci men Type: BLOOD SPECIMENOrdering Facility: [facility] Address: [address] [place] [address] Performed By: #### 5 7021-8 ####DEREJECREST LABORATORYCLIA [id number] [place] [address] [place] Monocytes (Bld) [#/Vol] 0.56 10*3/uL Normal <0.87 [facility] Comment on above: Order Comment: Speci men Type: BLOOD SPECIMENOrdering Facility: [facility] Address: [address] [place] [address] Performed By: #### 5 7021-8 ####HILLCREST LABORATORYCLIA [id number] [address] [place] Monocytes/100 WBC (Bld) 11.6 % Normal [facility] Comment on above: Order Comment: Speci men Type: BLOOD SPECIMENOrdering Facility: [facility] Address: [address] [place] [address] Performed By: #### 5 7021-8 ####DEREJECREST LABORATORYCLIA [id number] [place] [address] [place] Neutrophils (Bld) [#/Vol] 2.81 10*3/uL Normal 1.45-7.50 [facility] Comment on above: Order Comment: Speci men Type: BLOOD SPECIMENOrdering Facility: [facility] Address: [address] [place] [address] Performed By: #### 5 7021-8 ####DEREJECREST LABORATORYCLIA [id number] [place] [address] [place] Neutrophils/100 WBC (Bld) 58.5 % Normal [facility] Comment on above: Order Comment: Speci men Type: BLOOD SPECIMENOrdering Facility: [facility] Address: [address] [place] [address] Performed By: #### 5 7021-8 ####DEREJECREST LABORATORYCLIA [id number] [place] [address] [place] Nucleated RBC (Bld) [#/Vol] <0.01 k/uL [facility] Nucleated RBC/100 WBC (Bld) [Ratio] 0.0 /100 WBC Normal [facility] Comment on above: Order Comment: Speci men Type: BLOOD SPECIMENOrdering Facility: [facility] Address: [address] [place] [address] Performed By: #### 5 7021-8 ####DEREJECREST LABORATORYCLIA [id number] [place] [address] [place] Platelet mean volume (Bld) [Entitic vol] 10.8 fL Normal 9.0-12.7 [facility] Comment on above: Order Comment: Speci men Type: BLOOD SPECIMENOrdering Facility: [facility] Address: [address] [place] [address] Performed By: #### 5 7021-8 ####HILLCREST LABORATORYCLIA [id number] [place] [address] [place] Platelets (Bld) [#/Vol] 208 10*3/uL Normal 150-400 [facility] Comment on above: Order Comment: Speci men Type: BLOOD SPECIMENOrdering Facility: [facility] Address: [address] [place] [address] Performed By: #### 5 7021-8 ####DEREJECREST LABORATORYCLIA [id number] [place] [address] [place] RBC (Bld) [#/Vol] 3.70 10*6/uL Low 3.90-5.20 [facility] Comment on above: Order Comment: Speci men Type: BLOOD SPECIMENOrdering Facility: [facility] Address: [address] [place] [address] Performed By: #### 5 7021-8 ####DEREJECREST LABORATORYCLIA [id number] [place] [address] [place] WBC (Bld) [#/Vol] 4.81 10*3/uL Normal 3.70-11.00 [facility] Comment on above: Order Comment: Speci men Type: BLOOD SPECIMENOrdering Facility: [facility] Address: [address] [place] [address] Performed By: #### 5 7021-8 ####DEREJECREST LABORATORYCLIA [id number] [place] [address] [place] Immature granulocytes (Bld) [#/Vol] 10*3/uL Normal <0.10 [facility] Comment on above: Order Comment: Speci men Type: BLOOD SPECIMENOrdering Facility: [facility] Address: [address] [place] [address] Performed By: #### 5 7021-8 ####HILLCREST LABORATORYCLIA [id number] [place] [address] [place] Nucleated RBC (Bld) [#/Vol] 10*3/uL Normal <0.01 [facility] Comment on above: Order Comment: Speci men Type: BLOOD SPECIMENOrdering Facility: [facility] Address: [address] [place] [address] Performed By: #### 5 7021-8 ####DEREJECREST LABORATORYCLIA [id number] [place] [address] [place] Basic metabolic 2000 panelon 11-28-2022 Anion gap [Moles/Vol] 9 mmol/L 9 - 18 mmol/L [facility] Calcium [Mass/Vol] 10.0 mg/dL 8.5 - 10. 2 mg/dL [facility] Chloride [Moles/Vol] 104 mmol/L 97 - 10 5 mmol/L [facility] CO2 [Moles/Vol] 25 mmol/L 22 - 30 mmol/L [facility] Creatinine [Mass/Vol] 1.29 mg/dL High 0.58 - 0.96 mg/dL [facility] Estimated Glomerular Filtration Rate 42 mL/min/1.73m Low >=60 mL/min/1.73m [facility] Glucose [Mass/Vol] 73 mg/dL Low 74 - 99 mg/dL [facility] Potassium [Moles/Vol] 4.8 mmol/L 3.7 - 5.1 mmol/L [facility] Sodium [Moles/Vol] 138 mmol/L 136 - 144 mmol/L [facility] Urea nitrogen [Mass/Vol] 45 mg/dL High 7 - 21 mg/d L [facility] Anion gap [Moles/Vol] 9 mmol/L Normal 9-18 [facility] Comment on above: Order Comment: Speci men Type: BLOOD SPECIMENOrdering Facility: [facility] Address: [address] [place] [address] Performed By: #### 2 4321-2 ####BERRIOS LABORATORYCLIA [id number] [address] [place] [facility] Calcium [Mass/Vol] 10.0 mg/dL Normal 8.5-10.2 [facility] Comment on above: Order Comment: Speci men Type: BLOOD SPECIMENOrdering Facility: [facility] Address: [address] [place] [address] Performed By: #### 2 4321-2 ####BERRIOS LABORATORYCLIA [id number] [place] [address] [place] Chloride [Moles/Vol] 104 mmol/L Normal 97-105 [facility] Comment on above: Order Comment: Speci men Type: BLOOD SPECIMENOrdering Facility: [facility] Address: [address] [place] [address] Performed By: #### 2 4321-2 ####BERRIOS LABORATORYCLIA [id number] [place] [id number] [place] CO2 [Moles/Vol] 25 mmol/L Normal 22-30 [facility] Comment on above: Order Comment: Speci men Type: BLOOD SPECIMENOrdering Facility: [facility] Address: [address] [place] [address] Performed By: #### 2 4321-2 ####BERRIOS LABORATORYCLIA [id number] [place] [address] [place] Creatinine [Mass/Vol] 1.29 mg/dL High 0.58-0.96 [facility] Comment on above: Order Comment: Speci men Type: BLOOD SPECIMENOrdering Facility: [facility] Address: [address] [place] [address] Performed By: #### 2 4321-2 ####BERRIOS LABORATORYCLIA [id number] [place] [address] [place] ESTIMATED GLOMERULAR FILTRATION RATE 42 mL/min/1.73m??? Low >=60 [facility] Comment on above: Order Comment: Speci men Type: BLOOD SPECIMENOrdering Facility: [facility] Address: [address] [place] [address] Result Comment: Caroline mated Glomerular Filtration Rate [...] Performed By: #### 2 4321-2 ####BERRIOS LABORATORYCLIA [id number] [place] [address] [place] Glucose [Mass/Vol] 73 mg/dL Low 74-99 [facility] Comment on above: Order Comment: Speci men Type: BLOOD SPECIMENOrdering Facility: [facility] Address: [address] [place] [address] Result Comment: The [place] [employer] (ADA) provides guidance for cutoff [...] Standards of Medical Care in Diabetes 2016, [place]. Diabetes Care. 2016.39(Suppl 1). Performed By: #### 2 4321-2 ####BERRIOS LABORATORYCLIA [id number] [place] [address] [place] Potassium [Moles/Vol] 4.8 mmol/L Normal 3.7-5.1 [facility] Comment on above: Order Comment: Speci men Type: BLOOD SPECIMENOrdering Facility: [facility] Address: [address] [place] [address] Performed By: #### 2 1-2 ####BERRIOS LABORATORYCLIA [id number] [place] [address] [place] Sodium [Moles/Vol] 138 mmol/L Normal 136-144 [facility] Comment on above: Order Comment: Speci men Type: BLOOD SPECIMENOrdering Facility: [facility] Address: [address] [place] [address] Performed By: #### 2 1-2 ####BERRIOS LABORATORYCLIA [id number] [place] [address] [place] Urea nitrogen [Mass/Vol] 45 mg/dL High 7-21 [facility] Comment on above: Order Comment: Speci men Type: BLOOD SPECIMENOrdering Facility: [facility] Address: [address] [place] [address] Performed By: #### 2 1-2 ####BERRIOS LABORATORYCLIA [id number] [place] [address] [place] CBC W Auto Differential pane l (Bld)on 11-28-2022 Basophils (Bld) [#/Vol] 0.05 10*3/uL <0.11 k/uL [facility] Basophils/100 WBC (Bld) 0.9 % [facility] Differential cell count method Nom (Bld) Auto [facility] Eosinophils (Bld) [#/Vol] 0.17 10*3/uL <0.46 k/uL [facility] Eosinophils/100 WBC (Bld) 3.1 % [facility] Erythrocyte distribution width (RBC) [Ratio] 13.9 % 11.5 - 15.0 % [facility] Hematocrit (Bld) [Volume fraction] 38.0 % 36.0 - 46.0 % [facility] Hemoglobin (Bld) [Mass/Vol] 12.1 g/dL 11.5 - 15.5 g/dL [facility] Immature granulocytes (Bld) [#/Vol] 0.03 10*3/uL <0.10 k/uL [facility] Immature granulocytes/100 WBC (Bld) 0.5 % [facility] Lymphocytes (Bld) [#/Vol] 1.90 10*3/uL 1.00 - 4.00 k/uL [facility] Lymphocytes/100 WBC (Bld) 34.4 % [facility] MCH (RBC) [Entitic mass] 30.6 pg 26. 0 - 34.0 pg [facility] MCHC (RBC) [Mass/Vol] 31.8 g/dL 30.5 - 36.0 g/dL [facility] MCV (RBC) [Entitic vol] 96.2 fL 80.0 - 100.0 fL [facility] Monocytes (Bld) [#/Vol] 0.54 10*3/uL <0.87 k/uL [facility] Monocytes/100 WBC (Bld) 9.8 % [facility] Neutrophils (Bld) [#/Vol] 2.84 10*3/uL 1.45 - 7.50 k/uL [facility] Neutrophils/100 WBC (Bld) 51.3 % [facility] Nucleated RBC (Bld) [#/Vol] <0.01 k/uL [facility] Nucleated RBC/100 WBC (Bld) [Ratio] 0.0 /100 WBC [facility] Platelet mean volume (Bld) [Entitic vol] 10.2 fL 9.0 - 12.7 fL [facility] Platelets (Bld) [#/Vol] 245 10*3/uL 150 - 400 k/uL [facility] RBC (Bld) [#/Vol] 3.95 10*6/uL 3.90 - 5.2 0 m/uL [facility] WBC (Bld) [#/Vol] 5.53 10*3/uL 3.70 - 11. 00 k/uL [facility] Basophils (Bld) [#/Vol] 0.05 10*3/uL Normal <0.11 [facility] Comment on above: Order Comment: Speci men Type: BLOOD SPECIMENOrdering Facility: [facility] Address: [address] [place] [address] Performed By: #### 5 7021-8 ####BERRIOS LABORATORYCLIA [id number] [place] [address] [place] Basophils/100 WBC (Bld) 0.9 % Normal [facility] Comment on above: Order Comment: Speci men Type: BLOOD SPECIMENOrdering Facility: [facility] Address: [address] [place] [address] Performed By: #### 5 7021-8 ####BERRIOS LABORATORYCLIA [id number] [place] [address] [place] Differential cell count method Nom (Bld) Auto Normal [facility] Comment on above: Order Comment: Speci men Type: BLOOD SPECIMENOrdering Facility: [facility] Address: [address] [place] [address] Performed By: #### 5 7021-8 ####BERRIOS LABORATORYCLIA [id number] [place] [address] [place] Eosinophils (Bld) [#/Vol] 0.17 10*3/uL Normal <0.46 [facility] Comment on above: Order Comment: Speci men Type: BLOOD SPECIMENOrdering Facility: [facility] Address: [address] [place] [address] Performed By: #### 5 7021-8 ####BERRIOS LABORATORYCLIA [id number] [place] [address] [place] Eosinophils/100 WBC (Bld) 3.1 % Normal [facility] Comment on above: Order Comment: Speci men Type: BLOOD SPECIMENOrdering Facility: [facility] Address: [address] [place] [address] Performed By: #### 5 7021-8 ####BERRIOS LABORATORYCLIA [id number] [place] [address] [place] Erythrocyte distribution width (RBC) [Ratio] 13.9 % Normal 11.5-15.0 [facility] Comment on above: Order Comment: Speci men Type: BLOOD SPECIMENOrdering Facility: [facility] Address: [address] [place] [address] Performed By: #### 5 7021-8 ####BERRIOS LABORATORYCLIA [id number] [place] [address] [place] Hematocrit (Bld) [Volume fraction] 38.0 % Normal 36.0-46.0 [facility] Comment on above: Order Comment: Speci men Type: BLOOD SPECIMENOrdering Facility: [facility] Address: [address] [place] [address] Performed By: #### 5 7021-8 ####BERRIOS LABORATORYCLIA [id number] [place] [id number] [place] Hemoglobin (Bld) [Mass/Vol] 12.1 g/dL Normal 11.5-15.5 [facility] Comment on above: Order Comment: Speci men Type: BLOOD SPECIMENOrdering Facility: [facility] Address: [address] [place] [address] Performed By: #### 5 7021-8 ####BERRIOS LABORATORYCLIA [id number] [place] [address] [place] Immature granulocytes (Bld) [#/Vol] 0.03 10*3/uL Normal <0.10 [facility] Comment on above: Order Comment: Speci men Type: BLOOD SPECIMENOrdering Facility: [facility] Address: [address] [place] [address] Performed By: #### 5 7021-8 ####BERRIOS LABORATORYCLIA [id number] [address] Immature granulocytes/100 WBC (Bld) 0.5 % Normal [facility] Comment on above: Order Comment: Speci men Type: BLOOD SPECIMENOrdering Facility: [facility] Address: [address] [place] [address] Performed By: #### 5 7021-8 ####BERRIOS LABORATORYCLIA [id number] [place] [address] [place] Lymphocytes (Bld) [#/Vol] 1.90 10*3/uL Normal 1.00-4.00 [facility] Comment on above: Order Comment: Speci men Type: BLOOD SPECIMENOrdering Facility: [facility] Address: [address] [place] [address] Performed By: #### 5 7021-8 ####BERRIOS LABORATORYCLIA [id number] [address] [place] Lymphocytes/100 WBC (Bld) 34.4 % Normal [facility] Comment on above: Order Comment: Speci men Type: BLOOD SPECIMENOrdering Facility: [facility] Address: [address] [place] [address] Performed By: #### 5 7021-8 ####BERRIOS LABORATORYCLIA [id number] [place] [address] [place] MCH (RBC) [Entitic mass] 30.6 pg Normal 26.0-34.0 [facility] Comment on above: Order Comment: Speci men Type: BLOOD SPECIMENOrdering Facility: [facility] Address: [address] [place] [address] Performed By: #### 5 7021-8 ####BERRIOS LABORATORYCLIA [id number] [place] [address] [place] MCHC (RBC) [Mass/Vol] 31.8 g/dL Normal 30.5-36.0 [facility] Comment on above: Order Comment: Speci men Type: BLOOD SPECIMENOrdering Facility: [facility] Address: [address] [place] [address] Performed By: #### 5 7021-8 ####BERRIOS LABORATORYCLIA [id number] [address] [place] MCV (RBC) [Entitic vol] 96.2 fL Normal 80.0-100.0 [facility] Comment on above: Order Comment: Speci men Type: BLOOD SPECIMENOrdering Facility: [facility] Address: [address] [place] [address] Performed By: #### 5 7021-8 ####BERRIOS LABORATORYCLIA [id number] [place] [address] [place] Monocytes (Bld) [#/Vol] 0.54 10*3/uL Normal <0.87 [facility] Comment on above: Order Comment: Speci men Type: BLOOD SPECIMENOrdering Facility: [facility] Address: [address] [place] [address] Performed By: #### 5 7021-8 ####BERRIOS LABORATORYCLIA [id number] [address] Monocytes/100 WBC (Bld) 9.8 % Normal [facility] Comment on above: Order Comment: Speci men Type: BLOOD SPECIMENOrdering Facility: [facility] Address: [address] [place] [address] Performed By: #### 5 7021-8 ####BERRIOS LABORATORYCLIA [id number] [place] [address] [place] Neutrophils (Bld) [#/Vol] 2.84 10*3/uL Normal 1.45-7.50 [facility] Comment on above: Order Comment: Speci men Type: BLOOD SPECIMENOrdering Facility: [facility] Address: [address] [place] [address] Performed By: #### 5 7021-8 ####BERRIOS LABORATORYCLIA [id number] [place] [address] Neutrophils/100 WBC (Bld) 51.3 % Normal [facility] Comment on above: Order Comment: Speci men Type: BLOOD SPECIMENOrdering Facility: [facility] Address: [address] [place] [address] Performed By: #### 5 7021-8 ####BERRIOS LABORATORYCLIA [id number] [place] [address] [place] [facility] [place] Nucleated RBC (Bld) [#/Vol] 10*3/uL Normal <0.01 [facility] Comment on above: Order Comment: Speci men Type: BLOOD SPECIMENOrdering Facility: [facility] Address: [address] [place] [address] Performed By: #### 5 7021-8 ####BERRIOS LABORATORYCLIA [id number] [address] [place] Nucleated RBC/100 WBC (Bld) [Ratio] 0.0 /100 WBC Normal [facility] Comment on above: Order Comment: Speci men Type: BLOOD SPECIMENOrdering Facility: [facility] Address: [address] [place] [address] Performed By: #### 5 7021-8 ####BERRIOS LABORATORYCLIA [id number] [place] [address] [place] Platelet mean volume (Bld) [Entitic vol] 10.2 fL Normal 9.0-12.7 [facility] Comment on above: Order Comment: Speci men Type: BLOOD SPECIMENOrdering Facility: [facility] Address: [address] [place] [address] Performed By: #### 5 7021-8 ####BERROIS LABORATORYCLIA [id number] [place] [address] [place] Platelets (Bld) [#/Vol] 245 10*3/uL Normal 150-400 [facility] Comment on above: Order Comment: Speci men Type: BLOOD SPECIMENOrdering Facility: [facility] Address: [address] [place] [address] Performed By: #### 5 7021-8 ####BERRIOS LABORATORYCLIA [id number] [address] RBC (Bld) [#/Vol] 3.95 10*6/uL Normal 3.90-5.20 [facility] Comment on above: Order Comment: Speci men Type: BLOOD SPECIMENOrdering Facility: [facility] Address: [address] [place] [address] Performed By: #### 5 7021-8 ####BERRIOS LABORATORYCLIA [id number] [place] [id number] [facility] WBC (Bld) [#/Vol] 5.53 10*3/uL Normal 3.70-11.00 [facility] Comment on above: Order Comment: Speci men Type: BLOOD SPECIMENOrdering Facility: [facility] Address: [address] [place] [address] Performed By: #### 5 7021-8 ####BERRIOS LABORATORYCLIA [id number] [place] [id number] [place] Basic metabolic 2000 panelon 11-25-2022 Anion gap [Moles/Vol] 10 mmol/L 9 - 18 mmol/L [facility] Calcium [Mass/Vol] 9.5 mg/dL 8.5 - 10. 2 mg/dL [facility] Chloride [Moles/Vol] 106 mmol/L High 97 - 10 5 mmol/L [facility] CO2 [Moles/Vol] 26 mmol/L 22 - 30 mmol/L [facility] Creatinine [Mass/Vol] 1.13 mg/dL High 0.58 - 0.96 mg/dL [facility] Estimated Glomerular Filtration Rate 50 mL/min/1.73m Low >=60 mL/min/1.73m [facility] Glucose [Mass/Vol] 89 mg/dL 74 - 99 mg/dL [facility] Potassium [Moles/Vol] 4.2 mmol/L 3.7 - 5.1 mmol/L [facility] Sodium [Moles/Vol] 142 mmol/L 136 - 144 mmol/L [facility] Urea nitrogen [Mass/Vol] 32 mg/dL High 7 - 21 mg/d L [facility] Anion gap [Moles/Vol] 10 mmol/L Normal 9-18 [facility] Comment on above: Order Comment: Speci men Type: BLOOD SPECIMENOrdering Facility: [facility] Address: [address] [place] [address] Performed By: #### 2 4321-2 ####BERRIOS LABORATORYCLIA [id number] [place] [address] [place] Calcium [Mass/Vol] 9.5 mg/dL Normal 8.5-10.2 [facility] Comment on above: Order Comment: Speci men Type: BLOOD SPECIMENOrdering Facility: [facility] Address: [address] [place] [address] Performed By: #### 2 4321-2 ####BERRIOS LABORATORYCLIA [id number] [place] [address] [place] Chloride [Moles/Vol] 106 mmol/L High 97-105 [facility] Comment on above: Order Comment: Speci men Type: BLOOD SPECIMENOrdering Facility: [facility] Address: [address] [place] [address] Performed By: #### 2 4321-2 ####BERRIOS LABORATORYCLIA [id number] [place] [address] [place] CO2 [Moles/Vol] 26 mmol/L Normal 22-30 [facility] Comment on above: Order Comment: Speci men Type: BLOOD SPECIMENOrdering Facility: [facility] Address: [address] [place] [address] Performed By: #### 2 4321-2 ####BERRIOS LABORATORYCLIA [id number] [place] [id number] [place] Creatinine [Mass/Vol] 1.13 mg/dL High 0.58-0.96 [facility] Comment on above: Order Comment: Speci men Type: BLOOD SPECIMENOrdering Facility: [facility] Address: [address] [place] [address] Performed By: #### 2 4321-2 ####BERRIOS LABORATORYCLIA [id number] [place] [address] [place] ESTIMATED GLOMERULAR FILTRATION RATE 50 mL/min/1.73m??? Low >=60 [facility] Comment on above: Order Comment: Jordyn finch Type: BLOOD SPECIMENOrdering Facility: [facility] Address: [address] [place] [address] Result Comment: Caroline mated Glomerular Filtration Rate [...] Performed By: #### 2 4321-2 ####BERRIOS LABORATORYCLIA [id number] [place] [id number] [place] Glucose [Mass/Vol] 89 mg/dL Normal 74-99 [facility] Comment on above: Order Comment: Jordyn finch Type: BLOOD SPECIMENOrdering Facility: [facility] Address: [address] [place] [address] Result Comment: The [place] [employer] (ADA) provides guidance for cutoff [...] Standards of Medical Care in Diabetes 2016, [place] [employer]. Diabetes Care. 2016.39(Suppl 1). Performed By: #### 2 4321-2 ####BERRIOS LABORATORYCLIA [id number] [place] [id number] [place] Potassium [Moles/Vol] 4.2 mmol/L Normal 3.7-5.1 [facility] Comment on above: Order Comment: Jordyn finch Type: BLOOD SPECIMENOrdering Facility: [facility] Address: [address] [place] [address] Performed By: #### 2 4321-2 ####BERRIOS LABORATORYCLIA [id number] [address] Sodium [Moles/Vol] 142 mmol/L Normal 136-144 [facility] Comment on above: Order Comment: Speci men Type: BLOOD SPECIMENOrdering Facility: [facility] Address: [address] [place] [address] Performed By: #### 2 4321-2 ####BERRIOS LABORATORYCLIA [id number] [address] [place] [facility] Urea nitrogen [Mass/Vol] 32 mg/dL High 7-21 [facility] Comment on above: Order Comment: Speci men Type: BLOOD SPECIMENOrdering Facility: [facility] Address: [address] [place] [address] Performed By: #### 2 4321-2 ####BERRIOS LABORATORYCLIA [id number] [address] [place] CBC W Auto Differential pane l (Bld)on 11-25-2022 Basophils (Bld) [#/Vol] 0.05 10*3/uL <0.11 k/uL [facility] Basophils/100 WBC (Bld) 0.7 % [facility] Differential cell count method Nom (Bld) Auto [facility] Eosinophils (Bld) [#/Vol] 0.21 10*3/uL <0.46 k/uL [facility] Eosinophils/100 WBC (Bld) 3.1 % [facility] Erythrocyte distribution width (RBC) [Ratio] 13.8 % 11.5 - 15.0 % [facility] Hematocrit (Bld) [Volume fraction] 37.0 % 36.0 - 46.0 % [facility] Hemoglobin (Bld) [Mass/Vol] 12.1 g/dL 11.5 - 15.5 g/dL [facility] Immature granulocytes (Bld) [#/Vol] 0.03 10*3/uL <0.10 k/uL [facility] Immature granulocytes/100 WBC (Bld) 0.4 % [facility] Lymphocytes (Bld) [#/Vol] 2.05 10*3/uL 1.00 - 4.00 k/uL [facility] Lymphocytes/100 WBC (Bld) 30.4 % [facility] MCH (RBC) [Entitic mass] 30.5 pg 26. 0 - 34.0 pg [facility] MCHC (RBC) [Mass/Vol] 32.7 g/dL 30.5 - 36.0 g/dL [facility] MCV (RBC) [Entitic vol] 93.2 fL 80.0 - 100.0 fL [facility] Monocytes (Bld) [#/Vol] 0.69 10*3/uL <0.87 k/uL [facility] Monocytes/100 WBC (Bld) 10.2 % [facility] Neutrophils (Bld) [#/Vol] 3.71 10*3/uL 1.45 - 7.50 k/uL [facility] Neutrophils/100 WBC (Bld) 55.2 % [facility] Nucleated RBC (Bld) [#/Vol] <0.01 k/uL [facility] Nucleated RBC/100 WBC (Bld) [Ratio] 0.0 /100 WBC [facility] Platelet mean volume (Bld) [Entitic vol] 9.7 fL 9.0 - 12.7 fL [facility] Platelets (Bld) [#/Vol] 264 10*3/uL 150 - 400 k/uL [facility] RBC (Bld) [#/Vol] 3.97 10*6/uL 3.90 - 5.2 0 m/uL [facility] WBC (Bld) [#/Vol] 6.74 10*3/uL 3.70 - 11. 00 k/uL [facility] Basophils (Bld) [#/Vol] 0.05 10*3/uL Normal <0.11 [facility] Comment on above: Order Comment: Speci men Type: BLOOD SPECIMENOrdering Facility: [facility] Address: [address] [place] [address] Performed By: #### 5 7021-8 ####BERRIOS LABORATORYCLIA [id number] [address] STATES OF [facility] Basophils/100 WBC (Bld) 0.7 % Normal [facility] Comment on above: Order Comment: Speci men Type: BLOOD SPECIMENOrdering Facility: [facility] Address: [address] [place] [address] Performed By: #### 5 7021-8 ####BERRIOS LABORATORYCLIA [id number] [place] [id number] [place] Differential cell count method Nom (Bld) Auto Normal [facility] Comment on above: Order Comment: Speci men Type: BLOOD SPECIMENOrdering Facility: [facility] Address: [address] [place] [address] Performed By: #### 5 7021-8 ####BERRIOS LABORATORYCLIA [id number] [place] [address] [place] Eosinophils (Bld) [#/Vol] 0.21 10*3/uL Normal <0.46 [facility] Comment on above: Order Comment: Speci men Type: BLOOD SPECIMENOrdering Facility: [facility] Address: [address] [place] [address] Performed By: #### 5 7021-8 ####BERRIOS LABORATORYCLIA [id number] [place] [address] [place] Eosinophils/100 WBC (Bld) 3.1 % Normal [facility] Comment on above: Order Comment: Speci men Type: BLOOD SPECIMENOrdering Facility: [facility] Address: [address] [place] [address] Performed By: #### 5 7021-8 ####BERRIOS LABORATORYCLIA [id number] [place] [address] [place] Erythrocyte distribution width (RBC) [Ratio] 13.8 % Normal 11.5-15.0 [facility] Comment on above: Order Comment: Speci men Type: BLOOD SPECIMENOrdering Facility: [facility] Address: [address] [place] [address] Performed By: #### 5 7021-8 ####BERRIOS LABORATORYCLIA [id number] [place] [address] [place] Hematocrit (Bld) [Volume fraction] 37.0 % Normal 36.0-46.0 [facility] Comment on above: Order Comment: Speci men Type: BLOOD SPECIMENOrdering Facility: [facility] Address: [address] [place] [address] Performed By: #### 5 7021-8 ####BERRIOS LABORATORYCLIA [id number] [place] [address] [place] Hemoglobin (Bld) [Mass/Vol] 12.1 g/dL Normal 11.5-15.5 [facility] Comment on above: Order Comment: Speci men Type: BLOOD SPECIMENOrdering Facility: [facility] Address: [address] [place] [address] Performed By: #### 5 7021-8 ####BERRIOS LABORATORYCLIA [id number] [place] [address] [place] Immature granulocytes (Bld) [#/Vol] 0.03 10*3/uL Normal <0.10 [facility] Comment on above: Order Comment: Speci men Type: BLOOD SPECIMENOrdering Facility: [facility] Address: [address] [place] [address] Performed By: #### 5 7021-8 ####BERRIOS LABORATORYCLIA [id number] [place] [address] [place] Immature granulocytes/100 WBC (Bld) 0.4 % Normal [facility] Comment on above: Order Comment: Speci men Type: BLOOD SPECIMENOrdering Facility: [facility] Address: [address] [place] [address] Performed By: #### 5 7021-8 ####BERRIOS LABORATORYCLIA [id number] [place] [address] [place] Lymphocytes (Bld) [#/Vol] 2.05 10*3/uL Normal 1.00-4.00 [facility] Comment on above: Order Comment: Speci men Type: BLOOD SPECIMENOrdering Facility: [facility] Address: [address] [place] [address] Performed By: #### 5 7021-8 ####BERRIOS LABORATORYCLIA [id number] [place] [address] [place] Lymphocytes/100 WBC (Bld) 30.4 % Normal [facility] Comment on above: Order Comment: Speci men Type: BLOOD SPECIMENOrdering Facility: [facility] Address: [address] [place] [address] Performed By: #### 5 7021-8 ####BERRIOS LABORATORYCLIA [id number] [address] MCH (RBC) [Entitic mass] 30.5 pg Normal 26.0-34.0 [facility] Comment on above: Order Comment: Speci men Type: BLOOD SPECIMENOrdering Facility: [facility] Address: [address] [place] [address] Performed By: #### 5 7021-8 ####BERRIOS LABORATORYCLIA [id number] [address] [place] MCHC (RBC) [Mass/Vol] 32.7 g/dL Normal 30.5-36.0 [facility] Comment on above: Order Comment: Speci men Type: BLOOD SPECIMENOrdering Facility: [facility] Address: [address] [place] [address] Performed By: #### 5 7021-8 ####BERRIOS LABORATORYCLIA [id number] [address] MCV (RBC) [Entitic vol] 93.2 fL Normal 80.0-100.0 [facility] Comment on above: Order Comment: Speci men Type: BLOOD SPECIMENOrdering Facility: [facility] Address: [address] [place] [address] Performed By: #### 5 7021-8 ####BERRIOS LABORATORYCLIA [id number] [address] Monocytes (Bld) [#/Vol] 0.69 10*3/uL Normal <0.87 [facility] Comment on above: Order Comment: Speci men Type: BLOOD SPECIMENOrdering Facility: [facility] Address: [address] [place] [address] Performed By: #### 5 7021-8 ####BERRIOS LABORATORYCLIA [id number] [place] [address] [place] Monocytes/100 WBC (Bld) 10.2 % Normal [facility] Comment on above: Order Comment: Speci men Type: BLOOD SPECIMENOrdering Facility: [facility] Address: [address] [place] [address] Performed By: #### 5 7021-8 ####BERRIOS LABORATORYCLIA [id number] [place] [address] [place] Neutrophils (Bld) [#/Vol] 3.71 10*3/uL Normal 1.45-7.50 [facility] Comment on above: Order Comment: Speci men Type: BLOOD SPECIMENOrdering Facility: [facility] Address: [address] [place] [address] Performed By: #### 5 7021-8 ####BERRIOS LABORATORYCLIA [id number] [place] [address] [place] Neutrophils/100 WBC (Bld) 55.2 % Normal [facility] Comment on above: Order Comment: Speci men Type: BLOOD SPECIMENOrdering Facility: [facility] Address: [address] [place] [address] Performed By: #### 5 7021-8 ####BERRIOS LABORATORYCLIA [id number] [place] [address] [place] Nucleated RBC (Bld) [#/Vol] 10*3/uL Normal <0.01 [facility] Comment on above: Order Comment: Speci men Type: BLOOD SPECIMENOrdering Facility: [facility] Address: [address] [place] [address] Performed By: #### 5 7021-8 ####BERRIOS LABORATORYCLIA [id number] [place] [address] [place] Nucleated RBC/100 WBC (Bld) [Ratio] 0.0 /100 WBC Normal [facility] Comment on above: Order Comment: Speci men Type: BLOOD SPECIMENOrdering Facility: [facility] Address: [address] [place] [address] Performed By: #### 5 7021-8 ####BERRIOS LABORATORYCLIA [id number] [place] [address] [place] Platelet mean volume (Bld) [Entitic vol] 9.7 fL Normal 9.0-12.7 [facility] Comment on above: Order Comment: Speci men Type: BLOOD SPECIMENOrdering Facility: [facility] Address: [address] [place] [address] Performed By: #### 5 7021-8 ####BERRIOS LABORATORYCLIA [id number] [place] [id number] [place] Platelets (Bld) [#/Vol] 264 10*3/uL Normal 150-400 [facility] Comment on above: Order Comment: Speci men Type: BLOOD SPECIMENOrdering Facility: [facility] Address: [address] [place] [address] Performed By: #### 5 7021-8 ####BERRIOS LABORATORYCLIA [id number] [place] [address] [place] RBC (Bld) [#/Vol] 3.97 10*6/uL Normal 3.90-5.20 [facility] Comment on above: Order Comment: Speci men Type: BLOOD SPECIMENOrdering Facility: [facility] Address: [address] [place] [address] Performed By: #### 5 7021-8 ####BERRIOS LABORATORYCLIA [id number] [place] [id number] [place] WBC (Bld) [#/Vol] 6.74 10*3/uL Normal 3.70-11.00 [facility] Comment on above: Order Comment: Speci men Type: BLOOD SPECIMENOrdering Facility: [facility] Address: [address] [place] [address] Performed By: #### 5 7021-8 ####BERRIOS LABORATORYCLIA [id number] [place] [id number] [place] Basic metabolic 2000 panelon 11-21-2022 Anion gap [Moles/Vol] 9 mmol/L 9 - 18 mmol/L [facility] Calcium [Mass/Vol] 9.3 mg/dL 8.5 - 10. 2 mg/dL [facility] Chloride [Moles/Vol] 107 mmol/L High 97 - 10 5 mmol/L [facility] CO2 [Moles/Vol] 23 mmol/L 22 - 30 mmol/L [facility] Creatinine [Mass/Vol] 1.13 mg/dL High 0.58 - 0.96 mg/dL [facility] Estimated Glomerular Filtration Rate 50 mL/min/1.73m Low >=60 mL/min/1.73m [facility] Glucose [Mass/Vol] 99 mg/dL 74 - 99 mg/dL [facility] Potassium [Moles/Vol] 4.1 mmol/L 3.7 - 5.1 mmol/L [facility] Sodium [Moles/Vol] 139 mmol/L 136 - 144 mmol/L [facility] Urea nitrogen [Mass/Vol] 43 mg/dL High 7 - 21 mg/d L [facility] CBC W Auto Differential pane l (Bld)on 11-21-2022 Basophils (Bld) [#/Vol] 0.05 10*3/uL <0.11 k/uL [facility] Basophils/100 WBC (Bld) 0.9 % [facility] Differential cell count method Nom (Bld) Auto [facility] Eosinophils (Bld) [#/Vol] 0.16 10*3/uL <0.46 k/uL [facility] Eosinophils/100 WBC (Bld) 2.8 % [facility] Erythrocyte distribution width (RBC) [Ratio] 13.6 % 11.5 - 15.0 % [facility] Hematocrit (Bld) [Volume fraction] 36.2 % 36.0 - 46.0 % [facility] Hemoglobin (Bld) [Mass/Vol] 11.5 g/dL 11.5 - 15.5 g/dL [facility] Immature granulocytes (Bld) [#/Vol] 0.04 10*3/uL <0.10 k/uL [facility] Immature granulocytes/100 WBC (Bld) 0.7 % [facility] Lymphocytes (Bld) [#/Vol] 1.79 10*3/uL 1.00 - 4.00 k/uL [facility] Lymphocytes/100 WBC (Bld) 31.3 % [facility] MCH (RBC) [Entitic mass] 30.1 pg 26. 0 - 34.0 pg [facility] MCHC (RBC) [Mass/Vol] 31.8 g/dL 30.5 - 36.0 g/dL [facility] MCV (RBC) [Entitic vol] 94.8 fL 80.0 - 100.0 fL [facility] Monocytes (Bld) [#/Vol] 0.62 10*3/uL <0.87 k/uL [facility] Monocytes/100 WBC (Bld) 10.8 % [facility] Neutrophils (Bld) [#/Vol] 3.06 10*3/uL 1.45 - 7.50 k/uL [facility] Neutrophils/100 WBC (Bld) 53.5 % [facility] Nucleated RBC (Bld) [#/Vol] <0.01 k/uL [facility] Nucleated RBC/100 WBC (Bld) [Ratio] 0.0 /100 WBC [facility] Platelet mean volume (Bld) [Entitic vol] 10.0 fL 9.0 - 12.7 fL [facility] Platelets (Bld) [#/Vol] 239 10*3/uL 150 - 400 k/uL [facility] RBC (Bld) [#/Vol] 3.82 10*6/uL Low 3.90 - 5.2 0 m/uL [facility] WBC (Bld) [#/Vol] 5.72 10*3/uL 3.70 - 11. 00 k/uL [facility] Basic metabolic 2000 panelon 11-18-2022 Anion gap [Moles/Vol] 12 mmol/L 9 - 18 mmol/L [facility] Calcium [Mass/Vol] 9.3 mg/dL 8.5 - 10. 2 mg/dL [facility] Chloride [Moles/Vol] 105 mmol/L 97 - 10 5 mmol/L [facility] CO2 [Moles/Vol] 24 mmol/L 22 - 30 mmol/L [facility] Creatinine [Mass/Vol] 1.22 mg/dL High 0.58 - 0.96 mg/dL [facility] Estimated Glomerular Filtration Rate 45 mL/min/1.73m Low >=60 mL/min/1.73m [facility] Glucose [Mass/Vol] 90 mg/dL 74 - 99 mg/dL [facility] Potassium [Moles/Vol] 3.8 mmol/L 3.7 - 5.1 mmol/L [facility] Sodium [Moles/Vol] 141 mmol/L 136 - 144 mmol/L [facility] Urea nitrogen [Mass/Vol] 34 mg/dL High 7 - 21 mg/d L [facility] CBC panel Auto (Bld)on 11-18 Erythrocyte distribution width (RBC) [Ratio] 13.7 % 11.5 - 15.0 % [facility] Hematocrit (Bld) [Volume fraction] 39.9 % 36.0 - 46.0 % [facility] Hemoglobin (Bld) [Mass/Vol] 12.7 g/dL 11.5 - 15.5 g/dL [facility] MCH (RBC) [Entitic mass] 30.1 pg 26. 0 - 34.0 pg [facility] MCHC (RBC) [Mass/Vol] 31.8 g/dL 30.5 - 36.0 g/dL [facility] MCV (RBC) [Entitic vol] 94.5 fL 80.0 - 100.0 fL [facility] Nucleated RBC (Bld) [#/Vol] <0.01 k/uL [facility] Platelet mean volume (Bld) [Entitic vol] 9.8 fL 9.0 - 12.7 fL [facility] Platelets (Bld) [#/Vol] 240 10*3/uL 150 - 400 k/uL [facility] RBC (Bld) [#/Vol] 4.22 10*6/uL 3.90 - 5.2 0 m/uL [facility] WBC (Bld) [#/Vol] 6.40 10*3/uL 3.70 - 11. 00 k/uL [facility] Vital Signs Date Time Vital Sign Value Performing Clinician Facility 05-13-2024 14:32-0500 Body height 162.6 cm Apurva Bruno APRN.PUBLIC ACCOUNTANT Work Phone: [facility] 05-13-2024 14:32-0500 Body mass index (BMI) [Ratio] 30.38 kg/m2 Apurva Bruno APRN.CNP Work Phone: [facility] 05-13-2024 14:32-0500 Body weight 80.29 kg Apurva Bruno APRN.PUBLIC ACCOUNTANT Work Phone: [facility] Comment on above: per last visit, pt in wheelchair 05-13-2024 14:32-0500 Diastolic blood pressure 83 mm[Hg] Apurva Hollaender HUMID SYSTEM OPERATOR.PUBLIC ACCOUNTANT Work Phone: [facility] 05-13-2024 14:32-0500 Heart rate 68 /min Apurva Hollaender HUMID SYSTEM OPERATOR.PUBLIC ACCOUNTANT Work Phone: [facility] 05-13-2024 14:32-0500 Systolic blood pressure 146 mm[Hg] Apurva Hollaender HUMID SYSTEM OPERATOR.PUBLIC ACCOUNTANT Work Phone: [facility] 11-21-2023 14:04-0400 Body height 162.6 cm Lashanda Bernhart HUMID SYSTEM OPERATOR.PUBLIC ACCOUNTANT Work Phone: [facility] 11-21-2023 14:04-0400 Diastolic blood pressure 83 mm[Hg] Lashanda Bernhart HUMID SYSTEM OPERATOR.PUBLIC ACCOUNTANT Work Phone: [facility] 11-21-2023 14:04-0400 Heart rate 85 /min Lashanda Bernhart HUMID SYSTEM OPERATOR.PUBLIC ACCOUNTANT Work Phone: [facility] 11-21-2023 14:04-0400 SaO2% (BldA) [Mass fraction] 98 % Lashanda Bernhart HUMID SYSTEM OPERATOR.PUBLIC ACCOUNTANT Work Phone: [facility] 11-21-2023 14:04-0400 Systolic blood pressure 140 mm[Hg] Lashanda Bernhart HUMID SYSTEM OPERATOR.PUBLIC ACCOUNTANT Work Phone: [facility] 11-12-2023 13:16-0400 Body height 162.6 cm Apurva Hollaender HUMID SYSTEM OPERATOR.PUBLIC ACCOUNTANT Work Phone: [facility] 11-12-2023 13:16-0400 Body mass index (BMI) [Ratio] 30.38 kg/m2 Apurva Hollaender HUMID SYSTEM OPERATOR.PUBLIC ACCOUNTANT Work Phone: [facility] 11-12-2023 13:16-0400 Body weight 80.29 kg Apurva Hollaender HUMID SYSTEM OPERATOR.PUBLIC ACCOUNTANT Work Phone: [facility] 11-12-2023 13:16-0400 Diastolic blood pressure 49 mm[Hg] Apurva Hollaender HUMID SYSTEM OPERATOR.PUBLIC ACCOUNTANT Work Phone: [facility] 11-12-2023 13:16-0400 Heart rate 62 /min Apurva Hollaender HUMID SYSTEM OPERATOR.PUBLIC ACCOUNTANT Work Phone: [facility] 11-12-2023 13:16-0400 Systolic blood pressure 122 mm[Hg] Apurva Hollaender HUMID SYSTEM OPERATOR.PUBLIC ACCOUNTANT Work Phone: [facility] 04-14-2023 15:08-0400 Body temperature 97.9 [degF] Lashanda Bernhart HUMID SYSTEM OPERATOR.PUBLIC ACCOUNTANT Work Phone: [facility] 04-14-2023 15:08-0400 Diastolic blood pressure 60 mm[Hg] Lashanda Bernhart HUMID SYSTEM OPERATOR.PUBLIC ACCOUNTANT Work Phone: [facility] 04-14-2023 15:08-0400 Heart rate 66 /min Lashanda Bernhart HUMID SYSTEM OPERATOR.PUBLIC ACCOUNTANT Work Phone: [facility] 04-14-2023 15:08-0400 SaO2% (BldA) [Mass fraction] 98 % Lashanda Bernhart HUMID SYSTEM OPERATOR.PUBLIC ACCOUNTANT Work Phone: [facility] 04-14-2023 15:08-0400 Systolic blood pressure 112 mm[Hg] Lashanda Bernhart HUMID SYSTEM OPERATOR.PUBLIC ACCOUNTANT Work Phone: [facility] 02-13-2023 13:42-0400 Body height 162.6 cm Apurva Hollaender HUMID SYSTEM OPERATOR.PUBLIC ACCOUNTANT Work Phone: [facility] 02-13-2023 13:42-0400 Body weight 80.29 kg Apurva Hollaender HUMID SYSTEM OPERATOR.PUBLIC ACCOUNTANT Work Phone: [facility] 02-13-2023 13:42-0400 Diastolic blood pressure 54 mm[Hg] Apurva Hollaender HUMID SYSTEM OPERATOR.PUBLIC ACCOUNTANT Work Phone: [facility] 02-13-2023 13:42-0400 Heart rate 75 /min Apurva Hollaender HUMID SYSTEM OPERATOR.PUBLIC ACCOUNTANT Work Phone: [facility] 02-13-2023 13:42-0400 Systolic blood pressure 105 mm[Hg] Apurva Cheriender HUMID SYSTEM OPERATOR.PUBLIC ACCOUNTANT Work Phone: [facility] 02-03-2023 13:05-0400 Body height 165.1 cm Griselda Guillermo PA-C Work Phone: [facility] 02-03-2023 13:05-0400 Body weight 82.56 kg Griselda Guillermo PA-C Work Phone: [facility] 02-03-2023 13:05-0400 Diastolic blood pressure 78 mm[Hg] Griselda Guillermo PA-C Work Phone: [facility] 02-03-2023 13:05-0400 Heart rate 77 /min Griselda Guillermo PA-C Work Phone: [facility] 02-03-2023 13:05-0400 Systolic blood pressure 127 mm[Hg] Griselda Guillermo PA-C Work Phone: [facility] 01-31-2023 13:36-0400 Body height 165.1 cm Lashandafrancy Albrecht HUMID SYSTEM OPERATOR.PUBLIC ACCOUNTANT Work Phone: [facility] 01-31-2023 13:36-0400 Body weight 75.3 kg Lashanda Clarkt HUMID SYSTEM OPERATOR.PUBLIC ACCOUNTANT Work Phone: [facility] 01-31-2023 13:36-0400 Diastolic blood pressure 56 mm[Hg] Lashanda Clarkt HUMID SYSTEM OPERATOR.PUBLIC ACCOUNTANT Work Phone: [facility] 01-31-2023 13:36-0400 Heart rate 77 /min Lashanda Clarkt HUMID SYSTEM OPERATOR.PUBLIC ACCOUNTANT Work Phone: [facility] 01-31-2023 13:36-0400 SaO2% (BldA) [Mass fraction] 97 % Lashanda Clarkt HUMID SYSTEM OPERATOR.PUBLIC ACCOUNTANT Work Phone: [facility] 01-31-2023 13:36-0400 Systolic blood pressure 114 mm[Hg] Lashanda Copebella HUMID SYSTEM OPERATOR.PUBLIC ACCOUNTANT Work Phone: [facility] 01-13-2023 10:44-0400 Body temperature 98.01 [degF] Radha Ferreira HUMID SYSTEM OPERATOR.PUBLIC ACCOUNTANT Work Phone: [facility] 01-13-2023 10:44-0400 Diastolic blood pressure 56 mm[Hg] Radha Ferreira HUMID SYSTEM OPERATOR.PUBLIC ACCOUNTANT Work Phone: [facility] 01-13-2023 10:44-0400 Heart rate 80 /min Radha Ferreira HUMID SYSTEM OPERATOR.PUBLIC ACCOUNTANT Work Phone: [facility] 01-13-2023 10:44-0400 Respiratory rate 18 /min Radha Ferreira HUMID SYSTEM OPERATOR.PUBLIC ACCOUNTANT Work Phone: [facility] 01-13-2023 10:44-0400 SaO2% (BldA) [Mass fraction] 96 % Radha Ferreira HUMID SYSTEM OPERATOR.PUBLIC ACCOUNTANT Work Phone: [facility] 01-13-2023 10:44-0400 Systolic blood pressure 110 mm[Hg] Radha Ferreira HUMID SYSTEM OPERATOR.PUBLIC ACCOUNTANT Work Phone: [facility] 01-10-2023 13:13-0400 Body height 165.1 cm Lashanda Clarkshaye BROTHERSN.PUBLIC ACCOUNTANT Work Phone: [facility] 01-10-2023 13:13-0400 Body weight 75.3 kg Lashanda Clarkshaye HUMID SYSTEM OPERATOR.PUBLIC ACCOUNTANT Work Phone: [facility] 01-10-2023 13:13-0400 Diastolic blood pressure 73 mm[Hg] Lashanda Copebella HUMID SYSTEM OPERATOR.PUBLIC ACCOUNTANT Work Phone: [facility] 01-10-2023 13:13-0400 Heart rate 65 /min Lashandafrancy Albrecht HUMID SYSTEM OPERATOR.PUBLIC ACCOUNTANT Work Phone: [facility] 01-10-2023 13:13-0400 SaO2% (BldA) [Mass fraction] 96 % Lashanda Albrecht HUMID SYSTEM OPERATOR.PUBLIC ACCOUNTANT Work Phone: [facility] 01-10-2023 13:13-0400 Systolic blood pressure 111 mm[Hg] Lashanda Coperadhashaye HUMID SYSTEM OPERATOR.PUBLIC ACCOUNTANT Work Phone: [facility] 01-02-2023 21:36-0400 Body temperature 97.59 [degF] Radha Ferreira HUMID SYSTEM OPERATOR.PUBLIC ACCOUNTANT Work Phone: [facility] 01-02-2023 21:36-0400 Diastolic blood pressure 76 mm[Hg] Radha Ferreira HUMID SYSTEM OPERATOR.PUBLIC ACCOUNTANT Work Phone: [facility] 01-02-2023 21:36-0400 Heart rate 70 /min Radha Ferreira HUMID SYSTEM OPERATOR.PUBLIC ACCOUNTANT Work Phone: [facility] 01-02-2023 21:36-0400 Respiratory rate 18 /min Radha Ferreira HUMID SYSTEM OPERATOR.PUBLIC ACCOUNTANT Work Phone: [facility] 01-02-2023 21:36-0400 SaO2% (BldA) [Mass fraction] 96 % Radha Ferreira HUMID SYSTEM OPERATOR.PUBLIC ACCOUNTANT Work Phone: [facility] 01-02-2023 21:36-0400 Systolic blood pressure 132 mm[Hg] Radha Ferreira HUMID SYSTEM OPERATOR.PUBLIC ACCOUNTANT Work Phone: [facility] 12-27-2022 21:53-0400 Body temperature 97.59 [degF] Radha Ferreira HUMID SYSTEM OPERATOR.PUBLIC ACCOUNTANT Work Phone: [facility] 12-27-2022 21:53-0400 Diastolic blood pressure 65 mm[Hg] Radha Ferreira HUMID SYSTEM OPERATOR.PUBLIC ACCOUNTANT Work Phone: [facility] 12-27-2022 21:53-0400 Heart rate 88 /min Radha Ferreira HUMID SYSTEM OPERATOR.PUBLIC ACCOUNTANT Work Phone: [facility] 12-27-2022 21:53-0400 Respiratory rate 16 /min Radha Ferreira HUMID SYSTEM OPERATOR.PUBLIC ACCOUNTANT Work Phone: [facility] 06-23-2023 21:53-0400 SaO2% (BldA) [Mass fraction] 95 % Radha Ferreira HUMID SYSTEM OPERATOR.PUBLIC ACCOUNTANT Work Phone: [facility] 12-27-2022 21:53-0400 Systolic blood pressure 113 mm[Hg] Radha Ferreira HUMID SYSTEM OPERATOR.PUBLIC ACCOUNTANT Work Phone: [facility] 12-23-2022 21:34-0400 Body temperature 97.59 [degF] Radha Ferreira HUMID SYSTEM OPERATOR.PUBLIC ACCOUNTANT Work Phone: [facility] 12-23-2022 21:34-0400 Diastolic blood pressure 63 mm[Hg] Radha Ferreira HUMID SYSTEM OPERATOR.PUBLIC ACCOUNTANT Work Phone: [facility] 12-23-2022 21:34-0400 Heart rate 74 /min Radha Ferreira HUMID SYSTEM OPERATOR.PUBLIC ACCOUNTANT Work Phone: [facility] 12-23-2022 21:34-0400 Respiratory rate 18 /min Radha Ferreira HUMID SYSTEM OPERATOR.PUBLIC ACCOUNTANT Work Phone: [facility] 12-23-2022 21:34-0400 SaO2% (BldA) [Mass fraction] 96 % Radha Ferreira HUMID SYSTEM OPERATOR.PUBLIC ACCOUNTANT Work Phone: [facility] 12-23-2022 21:34-0400 Systolic blood pressure 129 mm[Hg] Radha Ferreira HUMID SYSTEM OPERATOR.PUBLIC ACCOUNTANT Work Phone: [facility] 12-19-2022 11:34-0400 Body height 165.1 cm Apurva Bruno HUMID SYSTEM OPERATOR.PUBLIC ACCOUNTANT Work Phone: [facility] 12-19-2022 11:34-0400 Body weight 87.09 kg Apurvajordi Bruno HUMID SYSTEM OPERATOR.PUBLIC ACCOUNTANT Work Phone: [facility] 12-19-2022 11:34-0400 Diastolic blood pressure 56 mm[Hg] Apurva Bruno HUMID SYSTEM OPERATOR.PUBLIC ACCOUNTANT Work Phone: [facility] 12-19-2022 11:34-0400 Heart rate 65 /min Apurva Bruno APRN.CNP Work Phone: [facility] 12-19-2022 11:34-0400 Systolic blood pressure 110 mm[Hg] Apurva Bruno APRN.CNP Work Phone: [facility] Encounters Encounter Date Encounter Type Care Provider Facility Start: 11-12-2024 ambulatory Lashanda clayritchie HAWK Facility:[facility] Start: 11-12-2024 Registered Referred Lashanda [facility] Start: 11-08-2024 ambulatory Renatodeepakmitul Morrisonphong HAWK Facility:[facility] Start: 11-08-2024 Registered Referred Lashanda [facility] Start: 11-01-2024 End: 11-01-2024 ambulatory Marcos Екатеринаwinsome HAWK [facility] Work Phone: Start: 11-01-2024 End: 11-01-2024 Departed Referred Marcos Brown [facility] Start: 11-01-2024 End: 11-01-2024 ambulatory Marcos HAWK Facility:[facility] Start: 10-27-2024 Registered Referred Lashanda [facility] Start: 10-27-2024 End: 10-27-2024 ambulatory Lashanda HAWK Facility:[facility] Start: 10-06-2024 End: 10-06-2024 Departed Referred [facility]ashanda [facility] Start: 10-06-2024 Registered Referred Lashanda [facility] Start: 10-06-2024 End: 10-06-2024 ambulatory Lashanda HAWK Facility:[facility] Start: 10-01-2024 End: 10-01-2024 ambulatory Marcos Екатеринаwinsome HAWK [facility] Work Phone: Start: 10-01-2024 End: 10-01-2024 Departed Referred Lashanda [facility] Start: 10-01-2024 Registered Referred Lashanda herring MD -[facility] [place] [facility] Start: 10-01-2024 End: 10-01-2024 ambulatory Lashanda HAWK Facility:[facility] Start: 09-07-2024 End: 09-07-2024 ambulatory Marcos HAWK [facility] Work Phone: Start: 09-07-2024 End: 09-07-2024 Departed Referred [facility] [place] [facility] Start: 09-07-2024 Registered Referred [facility] [place] [facility] Start: 09-07-2024 End: 09-07-2024 ambulatory [facility] Facility:[facility] Start: 08-04-2024 End: 08-04-2024 ambulatory [facility] Work Phone: [facility] Work Phone: Start: 08-04-2024 End: 08-04-2024 Departed Referred Marcos [facility] [place] [facility] Start: 08-04-2024 End: 08-04-2024 ambulatory Marcos HAWK Facility:[facility] Start: 06-02-2024 ambulatory [facility] Facility:[facility] Start: 06-02-2024 Registered Referred [facility] [place] [facility] Start: 05-13-2024 End: 05-13-2024 Patient encounter procedure Apurva Bruno APRN.CNP Work Phone: Cerebrovascular Comment on above: Aphasia as late effe ct of cerebrovascular accident (Primary Dx); Hemiparesis affecting right side as late effect of cerebrovascular accident (HCC); Intracranial atherosclerosis; Primary hypertension; Dyslipidemia, goal LDL below 70 Start: 05-13-2024 End: 05-13-2024 ambulatory EVIN GARCIA Facility:[facility] Start: 04-13-2024 End: 04-13-2024 ambulatory Marcos HAWK Facility:[facility] Start: 03-23-2024 End: 03-23-2024 ambulatory Marcos HAWK Facility:[facility] Start: 02-27-2024 ambulatory Marcos HAWK Faci lity:[facility] Start: 02-23-2024 End: 02-23-2024 ambulatory Marcos HAWK Facility:[facility] Start: 01-09-2024 ambulatory Marcos HAWK Faci lity:[facility] Start: 11-21-2023 End: 11-21-2023 ambulatory LASHANDA COPERADHAShaye Facility:[facility] Start: 11-21-2023 End: 11-21-2023 Patient encounter procedure Lashanda Albrecht HUMID SYSTEM OPERATOR.PUBLIC ACCOUNTANT Work Phone: Urology Comment on above: Retention of urine ( Primary Dx); Urinary tract infection with hematuria, site unspecified Start: 11-12-2023 End: 11-12-2023 ambulatory EVIN Anitha GARCIA Facility:[facility] Start: 11-12-2023 End: 11-12-2023 Patient encounter procedure Apurva Bruno HUMID SYSTEM OPERATOR.PUBLIC ACCOUNTANT Work Phone: Cerebrovascular Comment on above: Aphasia as late effe ct of cerebrovascular accident (Primary Dx); Hemiparesis affecting right side as late effect of cerebrovascular accident (HCC); Intracranial atherosclerosis; Primary hypertension; Dyslipidemia, goal LDL below 70; Persistent depressive disorder Start: 07-02-2023 End: 07-02-2023 ambulatory [facility] Work Phone: Start: 07-02-2023 End: 07-02-2023 Departed Referred [facility] Start: 06-26-[address] [facility] [place] [facility] Start: 04-16-2023 End: 04-16-2023 ambulatory [facility] Work Phone: Start: 04-16-2023 End: 04-16-2023 Departed Referred [facility] Start: 04-14-2023 End: 04-14-2023 ambulatory LASHANDA COPERADHAShaye Facility:[facility] Start: 04-14-2023 End: 04-14-2023 Patient encounter procedure Lashanda Albrecht HUMID SYSTEM OPERATOR.PUBLIC ACCOUNTANT Work Phone: Urology Comment on above: Retention of urine ( Primary Dx); Urinary tract infection with hematuria, site unspecified Start: 03-31-2023 End: 03-31-2023 Departed Referred [facility] Start: 03-31-2023 Registered Referred [facility] Start: 03-27-2023 End: 03-27-2023 ambulatory [facility] Work Phone: Start: 03-27-2023 End: 03-27-2023 Departed Referred [facility] Start: 03-27-2023 Registered Referred [facility] Start: 03-20-2023 End: 03-20-2023 Departed Referred [facility] Start: 03-20-2023 Registered Referred [facility] Start: 03-13-2023 End: 03-13-2023 ambulatory [facility] Work Phone: Start: 03-13-2023 End: 03-13-2023 Departed Referred [facility] Start: 02-13-2023 End: 02-13-2023 Patient encounter procedure Apurva Bruno HUMID SYSTEM OPERATOR.PUBLIC ACCOUNTANT Work Phone: Cerebrovascular Comment on above: Arterial ischemic st roke (HCC) (Primary Dx); Right hemiparesis (HCC); Primary hypertension; Occlusion and stenosis of basilar artery; Dyslipidemia, goal LDL below 70 Start: 02-10-2023 Registered Referred [facility] Start: 02-03-2023 End: 02-03-2023 Patient encounter procedure Griselda Murphy PA-C Work Phone: [facility] Comment on above: Esophageal stricture (Primary Dx) Start: 01-31-2023 End: 02-01-2023 ambulatory LASHANDA ALBRECHT Facility:[facility] Start: 01-31-2023 End: 01-31-2023 Patient encounter procedure Lashanda Albrecht HUMID SYSTEM OPERATOR.PUBLIC ACCOUNTANT Work Phone: Urology Comment on above: Retention of urine ( Primary Dx); Urinary tract infection with hematuria, site unspecified Start: 01-13-2023 ambulatory Radha Lacy.PUBLIC ACCOUNTANT Work Phone: [facility] Comment on above: 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 Start: 01-10-2023 End: 01-11-2023 ambulatory EVIN Welsh CHAVA Facility:[facility] Start: 01-10-2023 End: 01-10-2023 Patient encounter procedure Lashanda Coperadhashaye DASHA.PUBLIC ACCOUNTANT Work Phone: Urology Comment on above: Transient cerebral i schemia, unspecified type (Primary Dx); Retention of urine; Urinary tract infection with hematuria, site unspecified Start: 01-08-2023 End: 01-08-2023 Subsequent hospital visit by physician Card Lab Stress [facility] Comment on above: Arterial ischemic st roke (HCC) [I63.9] Start: 01-02-2023 ambulatory Radha Lacy.PUBLIC ACCOUNTANT Work Phone: [facility] Comment on above: 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) (Primary Dx); Dysphasia; Benign essential HTN; Adjustment disorder with mixed anxiety and depressed mood; Acute urinary retention Start: 12-26-2022 ambulatory Radha Lacy.PUBLIC ACCOUNTANT Work Phone: [facility] Comment on above: OPENED IN ERROR (Yani ruben Dx) Start: 12-26-2022 Telemedicine consultation with patient Radha Ferreira APRN.PUBLIC ACCOUNTANT Work Phone: [facility] Start: 12-23-2022 [facility] Radha Lacy.PUBLIC ACCOUNTANT Work Phone: [facility] Comment on above: 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) (Primary Dx); Dysphasia; Benign essential HTN; Adjustment disorder with mixed anxiety and depressed mood; Acute urinary retention Start: 12-20-2022 End: 12-21-2022 ambulatory EVIN GARCIA Facility:[facility] Start: 12-19-2022 End: 12-19-2022 Patient encounter procedure Apurva Bruno APRN.PUBLIC ACCOUNTANT Work Phone: Cerebrovascular Comment on above: Arterial ischemic st roke (HCC) (Primary Dx); Transient cerebral ischemia, unspecified type ; Hyperlipidemia, unspecified hyperlipidemia type; Intracranial atherosclerosis; Mixed hyperlipidemia; Adjustment disorder with mixed anxiety and depressed mood; Disturbance in sleep behavior; Right hemiparesis (HCC) Start: 11-16-2022 End: 12-09-2022 Subsequent hospital visit by physician Suha Brown MD Work Phone: [facility] Start: 11-10-2022 ambulatory Myrna Reyes MD Work Phone: Neurosurgery Comment on above: Arterial ischemic st roke (HCC) (Primary Dx) Start: 11-10-2022 Telemedicine consultation with patient Myrna Reyes MD Work Phone: [facility] Procedures Date Procedure Procedure Detail Performing Clinician Start: 08-04-2024 Measurement of renal function Marcos HAWK Comment on above: GFR Calc Start: 05-13-2024 Follow-up visit Follow Up JURGEN BRUNO Start: 07-02-2023 Urine culture Start: 04-16-2023 Urine culture Start: 03-31-2023 Urine culture Start: 12-09-2022 Basic metabolic pane l calcium total Samy Thomas HUMID SYSTEM OPERATOR Work Phone: Start: 12-05-2022 Basic metabolic pane l calcium total Samy Thomas HUMID SYSTEM OPERATOR Work Phone: Start: 12-02-2022 Basic metabolic pane l calcium total Samy Thomas HUMID SYSTEM OPERATOR Work Phone: Start: 11-28-2022 Basic metabolic pane l calcium total Samy Thomas HUMID SYSTEM OPERATOR Work Phone: Start: 11-25-2022 Basic metabolic pane l calcium total Samy Thomas HUMID SYSTEM OPERATOR Work Phone: Start: 11-21-2022 Basic metabolic pane l calcium total Samy Thomas HUMID SYSTEM OPERATOR Work Phone: Start: 11-18-2022 Basic metabolic pane l calcium total Ran Mckeon DO Work Phone: Plan of Treatment Date Care Activity Detail Author Start: 12-09-2025 DIABETES SCREEN DIABETES SCREEN [facility] Start: 12-09-2025 Diabetes Screening Diabetes Screening [facility] Start: 11-19-2024 End: 11-19-2024 Patient encounter procedure 11/19/2024 2:00 PM EDT Office Visit Urology [address] [place] [address] Lashanda Albrecht APRN.[facility] [address] [place] [address] 1 year follow up Urology Comment on above: 1 year follow up Start: 11-11-2024 BP Controlled (<130/80) BP Controlled (<130/80) [facility] Start: 05-23-2024 End: 08-22-2024 Bacteria identified in Urine by Culture URINE CULTURE Microbiology Routine Urinary tract infection with hematuria, site unspecified Expected: 05/23/2024, Expires: 08/22/2024 [facility] Work Phone: Comment on above: Expected: 05/23/2024, Expires: Start: 05-13-2024 End: 05-13-2024 Patient encounter procedure 05/13/2024 2:30 PM EST Office Visit Cerebrovascular [address] [place] [address] Apurva Bruno, HUMID SYSTEM OPERATOR.PUBLIC ACCOUNTANT [address] [address] 6 month follow up Cerebrovascular Comment on above: 6 month follow up Start: 04-14-2024 BP Controlled (<130/80) BP Controlled (<130/80) [facility] Start: 02-14-2024 BP CONTROLLED (<130/80) BP CONTROLLED (<130/80) [facility] Start: 02-04-2024 BP CONTROLLED (<130/80) BP CONTROLLED (<130/80) [facility] Start: 02-01-2024 BP CONTROLLED (<130/80) BP CONTROLLED (<130/80) [facility] Start: 01-14-2024 BP CONTROLLED (<130/80) BP CONTROLLED (<130/80) [facility] Start: 01-11-2024 BP CONTROLLED (<130/80) BP CONTROLLED (<130/80) [facility] Start: 12-28-2023 BP CONTROLLED (<130/80) BP CONTROLLED (<130/80) [facility] Start: 12-24-2023 BP CONTROLLED (<130/80) BP CONTROLLED (<130/80) [facility] Start: 11-21-2023 End: 11-21-2023 Patient encounter procedure 11/21/2023 1:45 PM EDT Office Visit Urology [address] [place] [address] Lashanda Albrecht, HUMID SYSTEM OPERATOR.PUBLIC ACCOUNTANT [address] [place] [address] 6 month f/u Urology Comment on above: 6 month f/u Start: 10-09-2023 Covid-19 Vaccine () Covid-19 Vaccine () [facility] Start: 07-07-2023 Advance Directive Discussion Advance Directive Discussion [facility] Start: 07-07-2023 Behavioral Health Screening Behavioral Health Screening [facility] Start: 04-16-2023 End: 06-16-2023 Bacteria identified in Urine by Culture URINE CULTURE Microbiology Routine Retention of urine Expected: 04/16/2023, Expires: 06/16/2023 [facility] Work Phone: Comment on above: Expected: 04/16/2023, Expires: 3 Start: 03-07-2023 Influenza vaccination [facility] Start: 02-18-2023 End: 04-20-2023 Lipid 1996 panel - Serum or Plasma LIPID PANEL BASIC Lab Routine Hyperlipidemia, unspecified hyperlipidemia type Expected: 02/18/2023, Expires: 04/20/2023 [facility] Work Phone: Comment on above: Expected: 02/18/2023, Expires: 3 Start: 01-10-2023 End: 03-12-2023 Bacteria identified in Urine by Culture URINE CULTURE Microbiology Routine Retention of urine Urinary tract infection with hematuria, site unspecified Expected: 01/10/2023, Expires: 03/12/2023 [facility] Work Phone: Comment on above: Expected: 01/10/2023, Expires: 3 Start: 07-07-2022 ADVANCE DIRECTIVE DISCUSSION ADVANCE DIRECTIVE DISCUSSION [facility] Start: 07-07-2022 DEPRESSION ASSESSMENT DEPRESSION ASSESSMENT [facility] Start: 2018 RSV Vaccine (1 - 1-dose 75+ series) RSV Vaccine (1 - 1-dose 75+ series) [facility] Start: 05-08-2017 Pneumococcal Vaccine: 65+ (2 of 2 - PPSV23 or PCV20) Pneumococcal Vaccine: 65+ (2 of 2 - PPSV23 or PCV20) [facility] Start: 02-08-2008 BONE DENSITY BONE DENSITY [facility] Start: 02-08-2008 Bone Density Screening Bone Density Screening [facility] Start: 02-08-2008 Pneumococcal Vaccine: 65+ (1 - PCV) Pneumococcal Vaccine: 65+ (1 - PCV) [facility] Start: 02-08-2008 PNEUMOCOCCAL: 65+ (1 - PCV) PNEUMOCOCCAL: 65+ (1 - PCV) [facility] Start: 02-08-2008 Screening for osteoporosis Bone Density Screening [facility] Start: 2003 RSV Vaccine (1 - 1-dose 60+ series) RSV Vaccine (1 - 1-dose 60+ series) [facility] Start: 1993 SHINGRIX VACCINE (1 of 2) SHINGRIX VACCINE (1 of 2) [facility] Start: 1962 Urine microalbumin profile [facility] Start: 1961 ANNUAL PCP TEAM CHRONIC DISEASE VISIT ANNUAL PCP TEAM CHRONIC DISEASE VISIT [facility] Start: 1961 Anxiety Screening Anxiety Screening [facility] Start: 1961 BP CONTROLLED (<130/80) BP CONTROLLED (<130/80) [facility] Start: 1961 Depression Screening Depression Screening [facility] Start: 1943 COVID-19 VACCINE (#1) COVID-19 VACCINE (#1) [facility] EVENT MONITOR EVENT MONITOR Ca rdiology Routine Arterial ischemic stroke (HCC) Transient cerebral ischemia, unspecified type Ordered: 12/19/2022 [facility] Work Phone: Comment on above: Ordered: 12/19/2022 Thanh post-voiding residual urine&/bladder cap US MSR POST-VOID RESID URINE Procedures Routine Retention of urine Ordered: 01/10/2023 [facility] Work Phone: Comment on above: Ordered: 01/10/2023 [facility] Immunizations Immunization Date Immunization Notes Care Provider Thelma taylor 05-08-2016 influenza virus vacc ine, unspecified formulation Lashanda Albrecht APRN.PUBLIC ACCOUNTANT Work Phone: [facility] Payers Date Payer Category Payer Self-pay 2009 Unknown [id number] 2009 Unknown [id number] 2008 Medicare MEDICARE MEDICAR E A AND B [id number] 2008-Present [phone] [place] [address] Medicare [id number] 2008 Unknown [id number] Unknown [id number] Unknown [id number] Unknown [id number] Unknown [id number] Unknown [id number] Unknown [id number] Unknown [id number] Unknown [id number] Unknown [id number] Unknown [id number] Unknown [id number] Unknown [id number] Unknown [id number] Unknown [id number] Social History Date Type Detail Facility Start: [facility]10[facility]2022 [facility] Start: 11-10-2022 Tobacco use and exposure Smokeless tobacco non-user [facility] Start: 11-10-2022 End: 05-13-2024 Alcohol intake Lifetime non-drinker (finding) [facility] Start: 1945 Sex Assigned At Not on file [facility] Start: 11-13-2022 History SDOH Financial 5 [facility] Start: 11-13-2022 History SDOH Food Worry 1 [facility] Start: 11-13-2022 History SDOH Transpo rt Med 2 [facility] Start: 11-11-2022 End: 01-10-2023 History of Social function [facility] Work Phone: Start: 11-11-2022 End: 01-10-2023 Tobacco use panel [facility] Work Phone: How hard is it for y ou to pay for the very basics like food, housing, medical care, and heating Not hard at all [facility] Work Phone: (I/We) worried wheth er (my/our) food would run out before (I/we) got money to buy more. Never true [facility] Work Phone: In the past 12 month s, was there a time when you were not able to pay the mortgage or rent on time? No [facility] Work Phone: Start: 1945 Sex Assigned At Female [facility] ever [facility] Work Phone: Start: 09-10-2024 End: 10-26-2024 Sex Female (finding) [facility] Clinical Notes 11-10-2022 to 05-13-2024 Patient InstructionsApurva Bruno APRN.JANICE - 05/13/2024 2:30 PM ESTAddendum Note - Lashanda Albrecht APRN.PUBLIC ACCOUNTANT - 11/21/2023 2:31 PM EDLashanda Spencer APRN.PUBLIC ACCOUNTANT - 11/21/2023 2:10 PM EDT Note Date & Type Note Facility 05-13-2024 Instructions Apurva Bruno APRN.JANICE - 05/13/2024 3:02 PM EST Images from the original note were not included. Regarding your visit with Nurse Practitioner Apurva Bruno today at the [facility] Cerebrovascular Center we discussed the following: Impression: [...] if you have any questions Apurva Bruno, [facility] Cerebrovascular [place] Nurse Practitioner [place], [place] [address] Office: [phone] Appointments: [phone] Stroke Signs and Symptoms: *Stroke is a [...] diet rich in fruits and vegetables (https://www.nhlbi.nih.gov/educa tion/pxmn-jlqtaa-mybo) - Consider Mediterranean diet supplemented with nuts [...] of an exercise program by a health senior care provider such as a physical therapist or cardiac [...] for their cardiovascular health Adapted from the [place] Heart Association/[place] Stroke Association: 2020 Guideline for the Prevention of Stroke in Patients With Stroke and Transient Ischemic Attack documented in this encounter [facility] 05-13-2024 History of Presen t illness Narrative CEREBROVASCULAR CENTER Established Visit Consultation is requested by: No referring provider defined for this encounter. PCP: Evin Garcia ([facility]) [address] [place] [address] CEREBROVASCULAR HISTORY Myrna Saravia is a 77 year old female presenting for hospital discharge follow up. Admitted to [facility] 11/10-11/16/22. From discharge summary: 77-year-old female presented [facility] for acute onset of right upper extremity and right lower extremity weakness. Then was called and she was presented to [facility] where telestroke was called. She had a [...] -presents with her daughter Brooklynn -in different long-term facility, moved about a week ago- [facility] in [place] -aphasia and dysarthria improving -she still cannot [...] getting any PT or other therapy at [facility] where she's living -hasn't received her brace from [employer], though did get fitted for it before [...] bedtime. MUCUS-CHEST CONGESTION 100 mg/5 mL syrup [employer] 10 billion cell -200 mg capsule [...] (CCF-MODIFIED): Embolic Stroke of Unknown Source Modified Endeavor Score: Score: 4 NIH Stroke Scale: LOC: [...] which included preparing to see the patient, [id number] patient care, completing clinical documentation, performing a medically appropriate examination, counseling and educating the patient/family/caregiver, and care coordination (not separately reported) SIGNATURE Apurva Bruno APRN.CNP CC No referring provider defined for this encounter. Evin Almazan) [address] [place] [address] documented in this encounter [facility] 05-13-2024 Note HNO ID: [id number] Author: APURVA BRUNO APRN.CNP Service: ? Author Type: Nurse Practitioner Type: Progress Notes Filed: 05/14/2024 11:01 Note Text: CEREBROVASCULAR CENTER Established Visit Consultation is requested by: No referring provider defined for this encounter. PCP: Evin Garcia ([facility]) [address] [place] [address] CEREBROVASCULAR HISTORY Myrna Saravia is a 77 year old female presenting for hospital discharge follow up. Admitted to [facility] 11/10-11/16/22. From discharge summary: 77-year-old female presented [facility] for acute onset of right upper extremity and right lower extremity weakness. Then was called and she was presented to [facility] where telestroke was called. She had a [...] received cardiac event monitor -[facility] (crying, bouts of anger) - [...] -presents with her daughter Brooklynn -in different long-term facility, moved about a week ago- [facility] in [place] -aphasia and dysarthria improving -she still cannot [...] and the right (more content not included)... [facility] 11-21-2023 Note HNO ID: [id number] Author: LASHANDA ALBRECHT APRN.PUBLIC ACCOUNTANT Service: ? Author Type: Nurse Practitioner Type: Progress Notes Filed: 11/21/2023 14:31 Note Text: ESTABLISHED PATIENT OFFICE VISIT HISTORY OF PRESENT ILLNESS Myrna Saravia is a 78 year old female who presents today in f/u. 04/14/23: Patient with a h/o urinary retention, UTI, CVA. Patient presents today in f/u. [facility]. Recent UTI on 04/02/23. Finished a course [...] the time during the day at the [facility]. Mostly has incontinence into her depends. Today's note: Patient with a h/o CVA, urinary retention, UTI. Patient is still residing at [facility]. Her last UTI was on 04/02/23. Recent [...] (no units) Date Value 12/03/2022 Negative Specific Ronceverte, Ur (no units) Date Value 12/03/2022 >=1.030 [...] mL syrup chlorthalidone (HYGROTON) 25 mg tablet [facility] 10 billion cell -200 mg [...] or sooner if any issues. Lashanda Albrecht APRN.PUBLIC ACCOUNTANT [facility] 11-21-2023 Note Addended by: LASHANDA MITTAL on: 11/21/2023 02:31 PM Modules accepted: Orders [facility] 11-21-2023 Miscellaneous Notes Addended by: LASHANDA ALBRECHT on: 11/21/2023 02:31 PM Modules accepted: Orders documented in this encounter [facility] 11-21-2023 History of Presen t illness Narrative ESTABLISHED PATIENT OFFICE VISIT HISTORY OF PRESENT ILLNESS Myrna Saravia is a 78 year old female who presents today in f/u. 04/14/23: Patient with a h/o urinary retention, UTI, CVA. Patient presents today in f/u. Patient now at [facility]. Recent UTI on 04/02/23. Finished a [...] the time during the day at the [facility]. Mostly has incontinence into her depends. Today's note: Patient with a h/o CVA, urinary retention, UTI. Patient is still residing at [facility]. Her last UTI was on 04/02/23. Recent [...] (no units) Date Value 12/03/2022 Negative Specific Ronceverte, Ur (no units) Date Value 12/03/2022 >=1.030 [...] mL syrup chlorthalidone (HYGROTON) 25 mg tablet [facility] 10 billion cell -200 mg capsule polyethylene [...] TUBE route daily at bedtime. lactobacillus rhamnosus (Skritter) 10 billion cell capsule Take 1 capsule [...] or sooner if any issues. Lashanda Albrecht APRN.PUBLIC ACCOUNTANT documented in this encounter [facility] 11-12-2023 Instructions Apurva Bruno APRN.CNP - 11/12/2023 1:28 PM EDT Images from the original note were not included. Regarding your visit with Nurse Practitioner Apurva Bruno today at the [facility] Cerebrovascular Center we discussed the following: Impression: [...] if you have any questions Apurva Bruno [facility]bro[facility] [place] Nurse Practitioner [place], [place] [address] Office: [phone] Appointments: [phone] Stroke Signs and Symptoms: *Stroke is a [...] eating plan - more information: https://www.heart.org/en/healthy -living/healthy-eating/eat-smart /nutrition-basics/bba-ucsf-gol-l ifestyle-recommendations Smoking and Tobacco Use (including e-cigarettes) [...] regimen, may be considered Adopted from the [place] [employer] Attack : A Guideline for Healthcare Professionals From the [place] Heart Guidelines for the Prevention of Stroke in Patients With Stroke or Transient Ischemic - 2014 documented in this encounter [facility] 11-12-2023 History of Presen t illness Narrative CEREBROVASCULAR CENTER Established Visit Consultation is requested by: No referring provider defined for this encounter. PCP: Evin Garcia ([facility]) [place] [address] CEREBROVASCULAR HISTORY Myrna Saravia is a 77 year old female presenting for hospital discharge follow up. Admitted to [facility] 11/10-11/16/22. From discharge summary: 77-year-old female presented [facility] for acute onset of right upper extremity and right lower extremity weakness. Then was called and she was presented to [facility] where telestroke was called. She had a [...] received cardiac event monitor -[facility] (crying, bouts of anger) - [...] -presents with her daughter Brooklynn -in different long-term facility, moved about a week ago- [facility] in [place] -aphasia and dysarthria improving -she still cannot [...] getting any PT or other therapy at [facility] where she's living -hasn't received her brace from [facility], though did get fitted for it before [...] for constipation. chlorthalidone (HYGROTON) 25 mg tablet [facility] 10 billion cell -200 mg capsule [...] Stroke of Undetermined etiology: Negative Evaluation Modified Endeavor Score: Score: 4 NIH Stroke Scale: LOC: [...] which included preparing to see the patient, apgu-tx-vkjn patient care, completing clinical documentation, performing a medically appropriate examination, and counseling and educating the patient/family/caregiver SIGNATURE Apurva Bruno APRN.CNP CC No referring provider defined for this encounter. Evin Garcia (Dorothy) [address] [place] [address] documented in this encounter [facility] 11-12-2023 Note HNO ID: [id number] Author: APURVA BRUNO APRN.CNP Service: ? Author Type: Nurse Practitioner Type: Progress Notes Filed: 11/12/2023 14:25 Note Text: CEREBROVASCULAR CENTER Established Visit Consultation is requested by: No referring provider defined for this encounter. PCP: Evin Almazan) [address] [place] [address] CEREBROVASCULAR HISTORY Myrna Saravia is a 77 year old female presenting for hospital discharge follow up. Admitted to [facility] 11/10-11/16/22. From discharge summary: 77-year-old female presented [facility] for acute onset of right upper extremity and right lower extremity weakness. Then was called and she was presented to [facility] where telestroke was called. She had a [...] received cardiac event monitor -started Remeron in [facility] for mood (crying, bouts of anger) - [...] -presents with her daughter Brooklynn -in different long-term facility, moved about a week ago- [facility] in [place] -aphasia and dysarthria improving -she still cannot [...] Brooklynn -denies any (more content not included)... [facility] 04-15-2023 History of Past i llness Narrative Problem Noted Date Diagnosed Date Resolved Date Suspected stroke patient las t known to be well 2 to 3 hours ago 11/10/2022 11/10/2022 Stroke of uncertain pathology 11/10/2022 11/10/2022 documented as of this encounter (statuses as of 04/15/2023) [facility]10-09-2023 NoteHNO ID: [id number] Author: Lashanda Albrecht APRN.PUBLIC ACCOUNTANT Service: ? Author Type: Nurse Practitioner Type: Progress Notes Filed: 04/14/2023 3:56 PM Note Text: ESTABLISHED PATIENT OFFICE VISIT HISTORY OF PRESENT ILLNESS Myrna Saravia is a 78 year old female who presents today in f/u. Patient with a h/o urinary retention, UTI, CVA. Patient presents today in f/u. [facility]. Recent UTI on 04/02/23. Finished a course [...] the time during the day at the [facility]. Mostly has incontinence into her depends. LAB [...] (no units) Date Value 12/03/2022 Negative Specific Ronceverte, Ur (no units) Date Value 12/03/2022 >=1.030 [...] at bedtime. cefdinir (OMNICEF) 300 mg capsule [facility] [employer] [facility] 10 billion cell -200 mg [...] or sooner if any issues. Lashanda Albrecht APRN.PUBLIC ACCOUNTANT More than half of todays over 40 minute qxsj-sj-vruh office visit was spent in counselling/[facility]ination [facility] Instructions* Patient Instructions* Lashanda Albrecht APRN.PUBLIC ACCOUNTANT - 04/14/2023 3:33 PM EDT Please recheck [...] call urology with any questions. Lashanda Albrecht APRN.PUBLIC ACCOUNTANT [phone] documented in this encounterGrand [facility] History of Present illness Narrative* Lashanda Albrecht APRN.CNP - 04/14/2023 3:08 PM EDT ESTABLISHED PATIENT OFFICE VISIT HISTORY OF PRESENT ILLNESS Myrna Saravia is a 78 year old female who presents today in f/u. Patient with a h/o urinary retention, UTI, CVA. Patient presents today in f/u. Patient now at [facility]. Recent UTI on 04/02/23. Finished a [...] the time during the day at the [facility]. Mostly has incontinence into her depends. LAB [...] (no units) Date Value 12/03/2022 Negative Specific Ronceverte, Ur (no units) Date Value 12/03/2022 >=1.030 [...] at bedtime. cefdinir (OMNICEF) 300 mg capsule [facility] 10 billion cell -200 mg [...] than half of todays over 40 minute dsuq-br-ikby office visit was spent in counselling/coordination of care documented in this encounterGrand [facility] History of Past illness Narrative* Problem Noted Date Diagnosed Date Resolved Date Suspected stroke patient las t known to be well 2 to 3 hours ago 11/10/2022 11/10/2022 Stroke of uncertain pathology 11/10/2022 11/10/2022 documented as of this encounter (statuses as of 02/14/2023) [facility]08-10-2023 Instructions* Patient Instructions* Apurva Bruno APRN.CNP - 02/13/2023 2:51 PM EDT Images from the original note were not included. Regarding your visit with Nurse Practitioner Apurva Bruno today at the [facility] Cerebrovascular Center we discussed the following: Impression: [...] have any questions Apurva Bruno CNP [facility] [place] Nurse Practitioner [place], [place] [address] Office: [phone] Appointments: [phone] Stroke Signs and Symptoms: *Stroke is a [...] Hypertension) eating plan - more information: https://www.heart.org/en/healthy-living/healthy-eating/eat-smart/nutrition-basic s/iuj-mhqb-hxo-lifestyle-recommendations Smoking and Tobacco Use (including e-cigarettes) - [...] regimen, may be considered Adopted from the [place] [employer] Attack : A Guideline for Healthcare Professionals Fromthe [place] Heart Guidelines for the Prevention of Stroke in Patients With Stroke or Transient Ischemic - 2013 documented in this encounterGrand [facility]08[facility] History of Present illness Narrative* Apurva Bruno APRN.CNP - 02/13/2023 2:00 PM EDT CEREBROVASCULAR CENTER Established Visit Consultation is requested by: No referring provider defined for this encounter. PCP: Evin Garcia ([facility]) [place] [address] CEREBROVASCULAR HISTORY Myrna Saravia is a 77 year old female presenting for hospital discharge follow up. Admitted to [facility] 11/10-11/16/22. From discharge summary: 77-year-old female presented [facility] for acute onset of right upper extremity and right lower extremity weakness. Then was called and she was presented to [facility] where telestroke was called. She had a [...] -presents with her daughter Brooklynn -in different long-term facility, moved about a week ago- [facility] in [place] -aphasia and dysarthria improving -she still cannot [...] twice daily. cefdinir (OMNICEF) 300 mg capsule [employer] 10 billion cell -200 mg [...] touch. Coordination: Rapid alternating movements symmetric bilaterally. Xsvgsz-ii-texv without dysmetria bilaterally. Gait: deferred LABS Cholesterol: [...] Disease w/o Stroke Event: Intracranial Stenosis Modified Endeavor Score: Score: 4 IMPRESSION Acute infarcts left [...] which included preparing to see the patient, jhaw-ku-spdn patient care, completing clinical documentation, obtaining and/or reviewing separately obtained history, performing a medically appropriate examination, counseling and educating the patient/family/caregiver, independently interpreting results (not separately reported), communicating results to the patient/family/caregiver, and care coordination (not separately reported) SIGNATURE Apurva Bruno APRN.PUBLIC ACCOUNTANT CC No referring provider defined for this encounter. Evin Garcia ([facility]) [address] [place] [address] documented in this encounterGrand [facility] History of Past illness Narrative* Problem Noted Date Diagnosed Date Resolved Date Suspected stroke patient las t known to be well 2 to 3 hours ago 11/10/2022 11/10/2022 Stroke of uncertain pathology 11/10/2022 11/10/2022 documented as of this encounter (statuses as of 02/04/2023) [facility]07-31-2023 History of Present illness Narrative* Griselda Murphy [...] mg capsule chlorthalidone (HYGROTON) 25 mg tablet [facility] 10 billion cell -200 mg capsule [...] on the patient's daughters phone, report from [facility]. Patient denied all associated symptoms. She does [...] which included preparing to see the patient, yhwp-yg-ayxp patient care, completing clinical documentation, performing a medically appropriate examination, counseling and educating the patient/family/caregiver, and ordering medications, tests,or procedures. documented in this encounterGrand [facility]07-28-2023 History of Past illness Narrative* Problem Noted Date Diagnosed Date Resolved Date Suspected stroke patient las t known to be well 2 to 3 hours ago 11/10/2022 11/10/2022 Stroke of uncertain pathology 11/10/2022 11/10/2022 documented as of this encounter (statuses as of 01/31/2023) [facility]07-28-2023 NoteHNO ID: [id number] Author: Lashanda Albrecht APRN.JANICE Service: ? Author [...] (no units) Date Value 12/03/2022 Negative Specific Ronceverte, Ur (no units) Date Value 12/03/2022 >=1.030 [...] 599.0, 599.70, ICD10: N39.0, R31.9 Lashanda Albrecht APRN.[facility]07-28-[facility] History of Present illness Narrative* Lashanda Albrecht [...] (no units) Date Value 12/03/2022 Negative Specific Ronceverte, Ur (no units) Date Value 12/03/2022 >=1.030 [...] mL syrup chlorthalidone (HYGROTON) 25 mg tablet [facility] [employer] [facility] 10 billion cell -200 mg [...] 599.0, 599.70, ICD10: N39.0, R31.9 Lashanda Albrecht APRN.PUBLIC ACCOUNTANT documented in this encounterGrand [facility]07-10-[facility] History of Past illness Narrative* Problem Noted Date Diagnosed Date Resolved Date Suspected stroke patient las t known to be well 2 to 3 hours ago 11/10/2022 11/10/2022 Stroke of uncertain pathology 11/10/2022 11/10/2022 documented as of this encounter (statuses as of 01/13/2023) [facility]07-10-2023 NoteHNO ID: [id number] Author: Radha Ferreira APRN.PUBLIC ACCOUNTANT Service: ? Author Type: Nurse Practitioner Type: Progress Notes Filed: 01/13/2023 11:12 AM Note Text: Connected Care Unit Progress Note Patient Name: Myrna Saravia Patient Facility: [facility] Admit Date 12/09/22 Level of Care: Skilled [...] Dept Phone 01/31/2023 1:15 PM LASHANDA ALBRECHT [facility] [phone] 02/03/2023 1:00 PM GRISELDA MURPHY [place] [facility] [phone] 02/13/2023 2:00 PM APURVA BRUNO [facility] [phone] HPI: (Per hospital dc summary) 77-year-old female presented [facility] for acute onset of right upper extremity and right lower extremity weakness. Then was called and she was presented to [facility] where telestroke was called. She had a [...] her PCP and neurology. Pt was in [facility] from 11/16-12/09. During her stay, she [...] labs, family/social history (u (more content not included)...[facility]07-10-2023 History of Present illness Narrative* Radha Ferreira, DASHA.PUBLIC ACCOUNTANT - 01/13/2023 10:56 AM EDT Images from the original note were not included. Connected Care Unit Progress Note Patient Name: Myrna Saravia Patient Facility: [facility] Admit Date 12/09/22 Level of Care: Skilled [...] Dept Phone 01/31/2023 1:15 PM LASHANDA ALBRECHT [facility] [phone] 02/03/2023 1:00 PM GRISELDA MURPHY [place] [facility] [phone] 02/13/2023 2:00 PM APURVA BRUNO [facility] [phone] HPI: (Per hospital dc summary) 77-year-old female presented [facility] for acute onset of right upper extremity and right lower extremity weakness. Then was called and she was presented to [facility] where telestroke was called. She had a [...] her PCP and neurology. Pt was in [facility] from 11/16-12/09. During her stay, she participating with therapy and was startedon remeron. Diet advanced. Interval HPI [facility] yesterday [facility]. Fell [...] today, 01/13/2023. Electronically signed by Radha Ferreira APRN.PUBLIC ACCOUNTANT documented in this encounterGrand [facility]07-07-[facility]23 History of Past illness Narrative* Problem Noted Date Resolved Date Suspected stroke patient las t known to be well 2 to 3 hours ago 11/10/2022 11/10/2022 Stroke of uncertain pathology 11/10/2022 documented as of this encounter (statuses as of 01/10/2023) [facility]07-07-2023 NoteHNO ID: [id number] Author: Lashanda Albrecht APRN.JANICE Service: ? Author [...] stroke. She is currently in rehab at [facility]. She does not want to have a [...] (no units) Date Value 12/03/2022 Negative Specific Ronceverte, Ur (no units) Date Value 12/03/2022 >=1.030 Hemoglobin/Blood,Ur (no units) Date Value 12/03/2022 Negative pH, Urine (no units) Date Value 12/03/2022 6.0 Protein, Urine (no units) Date Value 12/03/2022 Negative Urobilinogen (no units) Date Value 12/03/2022 0.2 EU/dL Nitrites (no units) Date Value 12/03/2022 Negative Leuk Esterase (no units) Date Value 12/03/2022 Negative MEDICATIONS: chlorthalidone (HYGROTON) 25 mg tablet [facility] 10 billion cell -200 mg capsule acetaminophen [...] of urine - ICD (more content not included)...[facility]07-07-2023 Instructions* Patient Instructions* Lashanda Albrecht APRN.PUBLIC ACCOUNTANT - 01/10/2023 1:48 PM EDT Orders for long-term facility: - Please send a catheterized urine [...] Urology, we will treat if positive UTI. [phone] fax, attention: Lashanda Albrecht APRN.CNP documented in this encounterGrand Lake Joint [facility]07-07-2023 History of Present illness Narrative* Lashanda Albrecht [...] stroke. She is currently in rehab at [facility]. She does not want to have a [...] (no units) Date Value 12/03/2022 Negative Specific Ronceverte, Ur (no units) Date Value 12/03/2022 >=1.030 Hemoglobin/Blood,Ur (no units) Date Value 12/03/2022 Negative pH, Urine (no units) Date Value 12/03/2022 6.0 Protein, Urine (no units) Date Value 12/03/2022 Negative Urobilinogen (no units) Date Value 12/03/2022 0.2 EU/dL Nitrites (no units) Date Value 12/03/2022 Negative Leuk Esterase (no units) Date Value 12/03/2022 Negative MEDICATIONS: chlorthalidone (HYGROTON) 25 mg tablet [facility] [employer] [facility] 10 billion cell -200 mg [...] than half of todays over 40 minute kdic-zb-tsot office visit was spent in counselling/coordination of care documented in this encounterGrand Lake [facility]07-06-[facility]23 History of Past illness Narrative* Problem Noted Date Resolved Date Suspected stroke patient las t known to be well 2 to 3 hours ago 11/10/2022 11/10/2022 Stroke of uncertain pathology 11/10/2022 documented as of this encounter (statuses as of 01/09/2023) [facility]07-05-2023 Miscellaneous Notes* Patient Education - Kori Degroot RN - 01/08/2023 2:00 PM EDT Pt and daughter educated on event monitor. Stated understanding and able to demonstrate use. documented in this encounterGrand Lake Joint [facility]07-02-2023 History of Past illness Narrative* Problem Noted Date Resolved Date Suspected stroke patient saul cr known to be well 2 to 3 hours ago 11/10/2022 11/10/2022 Stroke of uncertain pathology 11/10/2022 documented as of this encounter (statuses as of 01/06/2023) [facility]06-29-2023 NoteHNO ID: [id number] Author: Radha Ferreira APRN.PUBLIC ACCOUNTANT Service: ? Author Type: Nurse Practitioner Type: Progress Notes Filed: 01/05/2023 10:29 PM Note Text: Connected Care Unit Progress Note Patient Name: Myrna Saravia Patient Facility: [facility] Admit Date 12/09/22 Level of Care: Skilled [...] CARD LAB STRESS 2 [facility]ATH [facility] [phone] 01/10/2023 1:00 PM LASHANDA ALBRECHT [facility] [phone] 02/03/2023 1:00 PM GRISELDA MURPHY [phone] 02/13/2023 2:00 PM APURVA BRUNO [facility] [phone] HPI: (Per hospital dc summary) 77-year-old female presented [facility] for acute onset of right upper extremity and right lower extremity weakness. Then was called and she was presented to [facility] where telestroke was called. She had a [...] her PCP and neurology. Pt was in [facility] from 11/16-12/09. During her stay, she [...] 153 12/23 Na 143/ (more content not included)...[facility]06-29-[facility] History of Present illness Narrative* Radha Ferreira APRN.PUBLIC ACCOUNTANT - 01/02/2023 9:38 PM EDT Images from the original note were not included. Connected Care Unit Progress Note Patient Name: Myrna Saravia Patient Facility: [facility] Admit Date 12/09/22 Level of Care: Skilled [...] CARD LAB STRESS 2 BATH AG [place] [phone] 01/10/2023 1:00 PM LASHANDA ALBRECHT [facility] [phone] 02/03/2023 1:00 PM GUILLERMO GRISELDA Ritchie [facility] [phone] 02/13/2023 2:00 PM APURVA BRUNO [facility] [phone] HPI: (Per hospital dc summary) 77-year-old female presented [facility] for acute onset of right upper extremity and right lower extremity weakness. Then was called and she was presented to [facility] where telestroke was called. She had a [...] her PCP and neurology. Pt was in [facility] from 11/16-12/09. During her stay, she [...] today, 01/02/2023. Electronically signed by Radha Ferreira APRN.PUBLIC ACCOUNTANT documented in this encounterGrand Lake Joint Township [facility]06-27-2023 NoteHNO ID: [id number] Author: Radha Ferreira APRN.PUBLIC ACCOUNTANT Service: ? Author Type: Nurse Practitioner Type: Progress Notes Filed: 01/01/2023 11:20 AM Note Text: Connected Care Unit Progress Note Patient Name: Myrna Saravia Patient Facility: [facility] Admit Date 12/09/22 Level of Care: Skilled [...] PM CARD LAB STRESS 2 BATH AG [facility] [phone] 01/10/2023 1:00 PM LASHANDA ALBRECHT [facility] [phone] 02/03/2023 1:00 PM GRISELDA MURPHY [facility] [phone] 02/13/2023 2:00 PM CODY APURVA AG [facility] [phone] HPI: (Per hospital dc summary) 77-year-old female presented [facility] for acute onset of right upper extremity and right lower extremity weakness. Then was called and she was presented to [facility] where telestroke was called. She had a [...] her PCP and neurology. Pt was in [facility] from 11/16-12/09. During her stay, she [...] pain. Musculoskeletal: Positive fo (more content not included)...[facility]06-[facility] History of Past illness Narrative* Problem Noted Date Resolved Date Suspected stroke patient saul cr known to be well 2 to 3 hours ago 11/10/2022 11/10/2022 Stroke of uncertain pathology 11/10/2022 documented as of this encounter (statuses as of 12/30/2022) [facility]06-25-2023 History of Past illness Narrative* Problem Noted Date Resolved Date Suspected stroke patient saul cr known to be well 2 to 3 hours ago 11/10/2022 11/10/2022 Stroke of uncertain pathology 11/10/2022 documented as of this encounter (statuses as of 12/30/2022) [facility]06-24-2023 NoteHNO ID: [id number] Author: Radha Ferreira APRN.JANICE Service: ? Author Type: Nurse Practitioner Type: Progress Notes Filed: 12/29/2022 10:25 PM Note Text: Connected Care Unit Progress Note Patient Name: Myrna Saravia Patient Facility: [facility] Admit Date 12/09/22 Level of Care: Skilled [...] Dept Phone 01/10/2023 1:00 PM LASHANDA ALBRECHT [facility] [phone] 02/03/2023 1:00 PM GRISELDA MURPHY [place] [phone] 02/13/2023 2:00 PM APURVA BRUNO [facility] [phone] HPI: (Per hospital dc summary) 77-year-old female presented [facility] for acute onset of right upper extremity and right lower extremity weakness. Then was called and she was presented to [facility] where telestroke was called. She had a [...] her PCP and neurology. Pt was in [facility] from 11/16-12/09. During her stay, she [...] family/social history (unchanged) Reviewed. (more content not included)...[facility]06-23-2023 History of Present illness Narrative* Radha Ferreira APRN.PUBLIC ACCOUNTANT - 12/27/2022 10:06 PM EDT Images from the original note were not included. Connected Care Unit Progress Note Patient Name: Myrna Saravia Patient Facility: [facility] Admit Date 12/09/22 Level of Care: Skilled [...] Dept Phone 01/10/2023 1:00 PM LASHANDA ALBRECHT [facility] [phone] 02/03/2023 1:00 PM GRISELDA MURPHY [phone] 02/13/2023 2:00 PM APURVA BRUNO P[facility] [phone] HPI: (Per hospital dc summary) 77-year-old female presented [facility] for acute onset of right upper extremity and right lower extremity weakness. Then was called and she was presented to [facility] where telestroke was called. She had a [...] her PCP and neurology. Pt was in [facility] from 11/16-12/09. During her stay, she [...] today, 12/27/2022. Electronically signed by Radha Ferreira APRN.PUBLIC ACCOUNTANT documented in this encounterGrand [facility] History of Past illness Narrative* Problem Noted Date Resolved Date Suspected stroke patient las t known to be well 2 to 3 hours ago 11/10/2022 11/10/2022 Stroke of uncertain pathology 11/10/2022 documented as of this encounter (statuses as of 12/25/2022) [facility]06-20-2023 NoteHNO ID: [id number] Author: Radha Ferreira APRN.JANICE Service: ? Author Type: Nurse Practitioner Type: Progress Notes Filed: 12/24/2022 10:20 AM Note Text: Connected Care Unit Progress Note Patient Name: Myrna Saravia Patient Facility: [facility] Admit Date 12/09/22 Level of Care: Skilled [...] Dept Phone 01/10/2023 1:00 PM LASHANDA ALBRECHT [facility] [phone] 02/03/2023 1:00 PM GRISELDA MURPHY [phone] 02/13/2023 2:00 PM APURVA BRUNO P[facility] [phone] HPI: (Per hospital dc summary) 77-year-old female presented [facility] for acute onset of right upper extremity and right lower extremity weakness. Then was called and she was presented to [facility] where telestroke was called. She had a [...] her PCP and neurology. Pt was in [facility] from 11/16-12/09. During her stay, she [...] any uncontrolled pain exacerbatio (more content not included)...[facility]06-20-2023 History of Past illness Narrative* Problem Noted Date Resolved Date Suspected stroke patient las t known to be well 2 to 3 hours ago 11/10/2022 11/10/2022 Stroke of uncertain pathology 11/10/2022 documented as of this encounter (statuses as of 12/24/2022) [facility]06-19-2023 NoteHNO ID: [id number] Author: Radha Ferreira APRN.PUBLIC ACCOUNTANT Service: ? Author Type: Nurse Practitioner Type: Progress Notes Filed: 12/23/2022 9:44 PM Note Text: Connected Care Unit Progress Note Patient Name: Myrna Saravia Patient Facility: [facility] Admit Date 12/09/22 Level of Care: Skilled [...] Phone 01/10/2023 1:00 PM VINAY LASHANDA SF [facility] [phone] 02/03/2023 1:00 PM GRISELDA MURPHY [place] [phone] 02/13/2023 2:00 PM APURVA BRUNO P[facility] [phone] HPI: (Per hospital dc summary) 77-year-old female presented [facility] for acute onset of right upper extremity and right lower extremity weakness. Then was called and she was presented to [facility] where telestroke was called. She had a [...] her PCP and neurology. Pt was in [facility] from 11/16-12/09. During her stay, she [...] (unchanged) Reviewed. Refer to (more content not included)...[facility]06-19-2023 History of Present illness Narrative* Radha Ferreira APRN.PUBLIC ACCOUNTANT - 12/23/2022 9:34 PM EDT Images from the original note were not included. Connected Care Unit Progress Note Patient Name: Myrna Saravia Patient Facility: [facility] Admit Date 12/09/22 Level of Care: Skilled [...] Dept Phone 01/10/2023 1:00 PM LASHANDA ALBRECHT [facility] [phone] 02/03/2023 1:00 PM GRISELDA MURPHY [facility] [phone] 02/13/2023 2:00 PM APURVA BRUNO P[facility] [phone] HPI: (Per hospital dc summary) 77-year-old female presented [facility] for acute onset of right upper extremity and right lower extremity weakness. Then was called and she was presented to [facility] where telestroke was called. She had a [...] her PCP and neurology. Pt was in [facility] from 11/16-12/09. During her stay, she [...] today, 12/23/2022. Electronically signed by Radha Ferreira APRN.PUBLIC ACCOUNTANT documented in this encounterGrand [facility]23 NoteHNO ID: [id number] Author: Lashanda Albrecht APRN.JANICE Service: ? Author [...] stroke. She is currently in rehab at [facility]. She does not want to have a [...] (no units) Date Value 12/03/2022 Negative Specific [place], Ur (no units) Date Value 12/03/2022 >=1.030 [...] Back: Normal. ASSESSMENT/PLAN: 1. 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 Retention of urine - ICD9: 788.20, ICD10: R33.9 -Macrobid x10 days sent to rehab pharmacy. -We will continue PVR checks/straight caths every 6 hours. -If PVR/straight cath greater than 750, will discuss placement of a Norton catheter. -Follow-u (more content not included)...[facility]06-15-2023 Instructions* Patient Instructions* Apurva Bruno APRN.CNP - 12/19/2022 12:00 PM EDT Images from the original note were not included. Regarding your visit with Nurse Practitioner Apurva Bruno today at the [facility] we discussed the following: Impression: [...] have any questions Apurva Bruno CNP [facility]erebro[facility] [place] Nurse Practitioner [place], [place] [address] Office: [phone] Appointments: [phone] Stroke Signs and Symptoms: *Stroke is a [...] these signs, don't delay! Immediately call 911, [facility] ([facility]) number so an [...] Hypertension) eating plan - more information: https://www.heart.org/en/healthy-living/healthy-eating/eat-smart/nutrition-basic s/tgc-dcxo-cvu-lifestyle-recommendations Smoking and Tobacco Use (including e-cigarettes) - [...] regimen, may be considered Adopted from the [place] [employer] Attack : A Guideline for Healthcare Professionals Fromthe [place] Heart Guidelines for the Prevention of Stroke in Patients With Stroke or Transient Ischemic - 2013 documented in this encounterGrand [facility] History of Present illness Narrative* Apurva Bruno APRN.JANICE - 12/19/2022 11:30 AM EDT [facility] Established Visit Consultation is requested by: No referring provider defined for this encounter. PCP: Evin Garcia ([facility]) [place] [address] CEREBROVASCULAR HISTORY Myrna Saravia is a 77 year old female presenting for hospital discharge follow up. Admitted to [facility] 11/10-11/16/22. From discharge summary: 77-year-old female presented [facility] for acute onset of right upper extremity and right lower extremity weakness. Then was called and she was presented to [facility] where telestroke was called. She had a [...] touch. Coordination: Rapid alternating movements symmetric bilaterally. Hrkklc-ls-hxuv without dysmetria bilaterally. Gait: deferred LABS Cholesterol: [...] Disease w/o Stroke Event: Intracranial Stenosis Modified Endeavor Score: Score: 4 IMPRESSION Acute infarcts left [...] which included preparing to see the patient, [id number] patient care, completing clinical documentation, obtaining and/or reviewing separately obtained history, performing a medically appropriate examination, counseling and educating the patient/family/caregiver, ordering medications, tests, or procedures, independently interpreting results (not separately reported), communicating results to the patient/family/caregiver, and care coordination (not separately reported) SIGNATURE Apurva Bruno APRN.CNP CC No referring provider defined for this encounter. Evin Garcia ([facility]) [address] [place] [address] documented in this encounterGrand [facility]-2023 NoteHNO ID: [id number] Author: Radha Ferreira APRN.CNP Service: ? Author Type: Nurse Practitioner Type: Progress Notes Filed: 12/18/2022 9:49 AM Note Text: Connected Care Unit Progress Note Patient Name: Myrna Saravia Patient Facility: [facility] Admit Date 12/09/22 Level of Care: Skilled [...] Phone 12/19/2022 11:30 AM APURVA BRUNO PO [phone] HPI: (Per hospital dc summary) 77-year-old female presented [facility] for acute onset of right upper extremity and right lower extremity weakness. Then was called and she was presented to [facility] where telestroke was called. She had a [...] her PCP and neurology. Pt was in [facility] from 11/16-12/09. During her stay, she [...] current medications, most recent labs, family/social history (count includes the [facility] (more content not included)...[facility]06-12-2023 NoteHNO ID: [id number] Author: Radha Ferreira APRN.PUBLIC ACCOUNTANT Service: ? Author Type: Nurse Practitioner Type: Progress Notes Filed: 12/17/2022 1:09 PM Note Text: Connected Care Unit Progress Note Patient Name: Myrna Saravia Patient Facility: [facility] Admit Date 12/09/22 Level of Care: Skilled [...] Dept Phone 12/19/2022 11:30 AM APURVA BRUNO [place] [phone] HPI: (Per hospital dc summary) 77-year-old female presented [facility] for acute onset of right upper extremity and right lower extremity weakness. Then was called and she was presented to [facility] where telestroke was called. She had a [...] her PCP and neurology. Pt was in [facility] from 11/16-12/09. During her stay, she [...] dry since 2AM when she was cathed. WOOD FILLER in room to assist pt up to [...] is not in acute (more content not included)...[facility]05-25-2023 NoteHNO ID: [id number] Author: Lucero Barajas PA-C Service: ? Author Type: Physician Manager Fund Type: Progress Notes Filed: 11/28/2022 2:57 PM [...] 11/13/22 as recommended. Actionable Finding addressed. 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]11/11/2022 Encounter Status:Closed by LUCERO BARAJAS on 11/28/22[facility] 11-[facility] History of Past illness Narrative* Problem Noted Date Resolved Date Suspected stroke patient las t known to be well 2 to 3 hours ago 11/10/2022 11/10/2022 Stroke of uncertain pathology 11/10/2022 documented as of this encounter (statuses as of 11/10/2022) [facility]05-07-2023 History of Present illness Narrative* Myrna Reyes MD - 11/10/2022 6:04 PM EDT TELESTROKE DOCUMENTATION Name: Myrna Saravia : 1945 Referring Site: [facility] Referring Provider: Dr. Naik Last Known [...] a telestroke. Thank you for contacting the [facility]. I appreciate the opportunity for allowing me to participate in Myrna Saraiva's care. Please feel free to contact me and/or the [facility] at any time if you have any further questions or need additional assistance. Myrna Reyes MD November 10, 2022 6:19 PM documented in this encounterGrand Lake [facility]05-[facility] History of Past illness Narrative* Problem Noted Date Resolved Date Suspected stroke patient las t known to be well 2 to 3 hours ago 11/10/2022 11/10/2022 Stroke of uncertain pathology 11/10/2022 documented as of this encounter (statuses as of 12/09/2022) [facility]* Diagnosis Arterial ischemic stroke (HCC)- Primary Unspecified cerebral artery occlusion with cerebral infarction documented in this encounter [facility]* Diagnosis 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 Dysphasia Other speech disturbance Benign essential HTN Essential hypertension, benign Adjustment disorder with mixed anxiety and depressed mood Acute urinary retention Other specified retention of urine documented in this encounter [facility]* Diagnosis Arterial ischemic stroke (HCC)- Primary [...] (used in SmartSet) documented in this encounter [facility]* Diagnosis 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 [place] [facility]* Diagnosis Aphasia as late effect of cerebrovascular accident- Primary Aphasia, late effect of cerebrovascular disease Hemiparesis affecting right side as late effect of cerebrovascular accident (HCC) Hemiplegia affecting unspecified side, late effect of cerebrovascular disease Intracranial atherosclerosis Cerebral atherosclerosis Primary hypertension Unspecified essential hypertension Dyslipidemia, goal LDL below 70 Other and unspecified hyperlipidemia Persistent depressive disorder documented in this encounter [facility]* Diagnosis Retention of urine- Primary Retention of urine, unspecified Urinary tract infection with hematuria, site unspecified documented in this encounter [facility] note* Diagnosis Cerebrovascular accident (CVA), unspecified mechanism [...] and unspecified hyperlipidemia documented in this encounter [facility] HospitalReason for referral (narrative)No reason for referral information availableWKindred Healthcare Work Phone: Advance Directives No Advanced Directives Records FoundDocuments on File Type Date Recorded 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 Advance Directive(s) 11/12/2022 1:50 PM [...] Reason for Visit Chief Complaint LAB WORK HALF-WAY LAB WORK Chief Complaint LAB WORK HALF-WAY LAB WORK LABWORK Chief Complaint LAB WORK HALF-WAY LAB WORK HALF-WAY LABWORK LABWORK HALF-WAY LAB WORK LABWORK Chief Complaint HALF-WAY LABWORK LABWORK HALF-WAY LAB WORK LABWORK HALF-WAY LAB WORK Chief Complaint Admit Date HALF-WAY LAB WORK June 02 5:00am LABWORK August 04, 2024 5 :00am Chief Complaint Admit Date LABWORK August 04, 2024 5 :00am HALF-WAY LAB WORK September 07, 2024 5: 00am Chief Complaint Admit Date LABWORK August 04, 2024 5 :00am HALF-WAY LAB WORK September 07, 2024 5: 00am HALF-WAY LAB WORK October 01, 2024 5 :00am Chief Complaint Admit Date LABWORK August 04, 2024 5 :00am HALF-WAY LAB WORK September 07, 2024 5: 00am HALF-WAY LAB WORK October 01, 2024 5 :00am HALF-WAY LAB WORK October 06, 2024 5: 00am [...] or prosecute any alcohol or drug abuse patient.[facility] HospitalIn the event this information is protected by the Federal Confidentiality of Alcohol and Drug Abuse Patient Records regulations: The Federal rules restrict any use of the information to criminally investigate or prosecute any alcohol or drug abuse patient.[facility] HospitalIn the event this information is protected by the Federal Confidentiality of Alcohol and Drug Abuse Patient Records regulations: The Federal rules restrict any use of the information to criminally investigate or prosecute any alcohol or drug abuse patient.[facility] HospitalIn the event this information is protected by the Federal Confidentiality of Alcohol and Drug Abuse Patient Records regulations: The Federal rules restrict any use of the information to criminally investigate or prosecute any alcohol or drug abuse patient.[facility] HospitalIn the event this information is protected by the Federal Confidentiality of Alcohol and Drug Abuse Patient Records regulations: The Federal rules restrict any use of the information to criminally investigate or prosecute any alcohol or drug abuse patient.[facility] HospitalIn the event this information is protected by the Federal Confidentiality of Alcohol and Drug Abuse Patient Records regulations: The Federal rules restrict any use of the information to criminally investigate or prosecute any alcohol or drug abuse patient.[facility] HospitalIn the event this information is protected by the Federal Confidentiality of Alcohol and Drug Abuse Patient Records regulations: The Federal rules restrict any use of the information to criminally investigate or prosecute any alcohol or drug abuse patient.[facility] HospitalIn the event this information is protected by the Federal Confidentiality of Alcohol and Drug Abuse Patient Records regulations: The Federal rules restrict any use of the information to criminally investigate or prosecute any alcohol or drug abuse patient.[facility] HospitalIn the event this information is protected by the Federal Confidentiality of Alcohol and Drug Abuse Patient Records regulations: The Federal rules restrict any use of the information to criminally investigate or prosecute any alcohol or drug abuse patient.[facility] HospitalIn the event this information is protected by the Federal Confidentiality of Alcohol and Drug Abuse Patient Records regulations: The Federal rules restrict any use of the information to criminally investigate or prosecute any alcohol or drug abuse patient.[facility] HospitalIn the event this information is protected by the Federal Confidentiality of Alcohol and Drug Abuse Patient Records regulations: The Federal rules restrict any use of the information to criminally investigate or prosecute any alcohol or drug abuse patient.[facility] HospitalIn the event this information is protected by the Federal Confidentiality of Alcohol and Drug Abuse Patient Records regulations: The Federal rules restrict any use of the information to criminally investigate or prosecute any alcohol or drug abuse patient.[facility] HospitalIn the event this information is protected by the Federal Confidentiality of Alcohol and Drug Abuse Patient Records regulations: The Federal rules restrict any use of the information to criminally investigate or prosecute any alcohol or drug abuse patient.[facility] HospitalIn the event this information is protected by the Federal Confidentiality of Alcohol and Drug Abuse Patient Records regulations: The Federal rules restrict any use of the information to criminally investigate or prosecute any alcohol or drug abuse patient.[facility] HospitalIn the event this information is protected by the Federal Confidentiality of Alcohol and Drug Abuse Patient Records regulations: The Federal rules restrict any use of the information to criminally investigate or prosecute any alcohol or drug abuse patient.[facility] HospitalIn the event this information is protected by the Federal Confidentiality of Alcohol and Drug Abuse Patient Records regulations: The Federal rules restrict any use of the information to criminally investigate or prosecute any alcohol or drug abuse patient.[facility] the event this information is protected by the Federal Confidentiality of Alcohol and Drug Abuse Patient Records regulations: The Federal rules restrict any use of the information to criminally investigate or prosecute any alcohol or drug abuse patient.[facility] Care Teams (unrecognized sec tion and content) Back Up Machine Operator Relationship Specialty Start Date End Date Evin Garcia MD [address] [place] [phone] PCP - General Family Medicine 11/10/22 Back Up Machine Operator Relationship Specialty Start Date End Date Evin Garcia MD [address] [place] [phone] PCP - General Family Medicine 11/10/22 Back Up Machine Operator Relationship Specialty Start Date End Date Evin Garcia MD [address] [place] [phone] PCP - General Family Medicine 11/10/22 Back Up Machine Operator Relationship Specialty Start Date End Date Evin Garcia MD [address] [place] [phone] PCP - General Family Medicine 11/10/22 Back Up Machine Operator Relationship Specialty Start Date End Date Evin Garcia MD [address] [place] [phone] PCP - General Family Medicine 11/10/22 Back Up Machine Operator Relationship Specialty Start Date End Date Evin Garcia MD [address] [place] [phone] PCP - General Family Medicine 11/10/22 Back Up Machine Operator Relationship Specialty Start Date End Date Evin Garcia MD [address] [place] [phone] PCP - General Family Medicine 11/10/22 Back Up Machine Operator Relationship Specialty Start Date End Date Evin Garcia MD [address] [place] [phone] PCP - General Family Medicine 11/10/22 Back Up Machine Operator Relationship Specialty Start Date End Date Evin Garcia MD [address] [place] [phone] PCP - General Family Medicine 11/10/22 Back Up Machine Operator Relationship Specialty Start Date End Date Evin Garcia MD [address] [place] [phone] PCP - General Family Medicine 11/10/22 Team [...] HAWK Attending Provider, Referring Provi shawnee Active Back Up Machine Operator Relationship Specialty Start Date End Date Evin Garcia MD [address] [place] [phone] PCP - General Family Medicine 11/10/22 Back Up Machine Operator Relationship Specialty Start Date End Date Evin Garcia MD [address] [place] [phone] PCP - General Family Medicine 11/10/22 Back Up Machine Operator Relationship Specialty Start Date End Date Evin Garcia MD [address] [place] [phone] PCP - General Family Medicine 11/10/22 Team Status: Active Member Role Status Dates [facility] Attending Provider Active Start: June 02, 2024 Team Status: Inactive Member Role Status Dates Marcos HAWK Attending Provider Active Sta rt: August 04, 2024 End: August 04, 2024 Team Status: Active Member Role Status Dates [facility] Attending Provider Active Start: September 07, 2024 Team Status: Inactive Member Role Status Dates [facility] Attending Provider Active Start: September 07, 2024 [...] and culture after last appointment, treated by senior living. Waiting for repeat culture results. Reason Comments [...] section and content) DATE CREATED AUTHOR 11/24/2023 [facility] DATE CREATED AUTHOR AUTHOR'S ORGANIZ ATION 05/15/2024 [facility] DATE CREATED AUTHOR AUTHOR'S ORGANIZ ATION 12/07/2024 [facility] FOR RECORDS PERTAINING TO PATIENTS WHO ARE [...] BE BASED ON THE PRIMARY CLINICAL RECORDS. [employer] provides no warranty or guarantee of the accuracy or completeness of information in this document.
[2024-12-08 08:14] LABS: Anion Gap 8 (5-15); BUN 21 mg/dL (4-19); BUN/Creat Ratio 17.8 RATIO (10-20); Calcium,Total 8.6 mg/dL (7.6-11.0); Carbon Dioxide 25.3 mmol/L (21.0-32.0); Chloride 108 mmol/L (98-108); Creatinine, Serum 1.19 mg/dL (0.70-1.20); EST Glomerular Filtration Rate 46 (>60); Glucose 96 mg/dL (70-99); Potassium 3.5 mmol/L (3.3-5.1); Sodium Level 142 mmol/L (133-145)
== END ==
LOC: OLS.SANC 04:00
DX: I10 Essential (primary) hypertension (principal)
CPT/HCPCS: 36415; 80048

== ENCOUNTER → 2024-12-15 05:00 | Outpatient (REF) | payer MEDICARE, BC, SELFPAY ==
--- OUTSIDE RECORDS SUMMARY | 2024-12-15 04:08 | XMS RPT_ITS | CCD ---
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 Name Role Phone Evin Garcia MD Primary Care Provider EVIN GARCIA Primary Care UnavailEVIN Choudhary Referring UnavailLASHANDA Reilly Attending Unavailable VINAY, LASHANDA Attending Unavailable EVIN GARCIA Primary Care Unavailabl LASHANDA Jacinto Attending Unavailable EVIN GARCIA Primary Care Unavailabl LASHANDA Jacinto Attending Unavailable EVIN GARCIA Primary Care Unavailabl e EVIN GARCIA Primary Care Unavailabl e LASHANDA ALBRECHT Attending Unavailable Evin Garcia MD Primary Care Provider EVIN GARCIA Primary Care Unavailabl APURVA Noonan Attending Unavailable EVIN GARCIA Primary Care Unavailabl APURVA Noonan Attending Unavailable [facility] [place] Attending Provider [phone] Marcos Reddy Attending Provider Unavailab le Marcos Reddy Attending Provider Unavailab le [facility] [place] Attending Provider [phone] Lashanda Stone MD Attending Provider Unava ilable Lashanda Covarrubias Attending Unavail able Marcos Reddy Attending Unavailable Marcos Reddy Attending Unavailable Marcos Reddy Attending Unavailable [facility] [place] Attending Marcos Melendez Attending [facility]available [facility] [place] Attending Lashanda Walsh Attending Unavail able Lashanda Covarrubias Attending Unavail able Lashanda Covarrubias Attending Unavail able [place] [facility], Lashanda Attending Unavail able [place] [facility], Marcos Attending Unavailable [place] [facility], Lashanda Attending Unavail able [place] [facility], Lashanda Referring Unavail able [place] [facility], Marcos Attending Unavailable [place] [facility], Marcos Referring Unavailable [place] [facility], Marcos Attending Unavailable Allergies Allergy Classification Reported Allergen(s) Allergy Type Date of Onset Reaction(s) Facility (18 sources) Sulfonamides (Antibiotic); Translations: [SULFA (SULFONAMIDE ANTIBIOTICS)] Drug Allergy 3 Mental Status Change [facility] (17 sources) Amoxicillin; Translations: [AMOXICILLIN] Drug Allergy 3 Other: See Comments [facility] (17 sources) Ciprofloxacin; Translations: [CIPROFLOXACIN] Drug Allergy 3 Mental Status Change [facility] Medications Current Medications Medication Drug Class(es) [...] inulin 200 mg / lactobacillus rhamnosus gg [id number] unt oral capsule (9 sources) Start: CULTURELLE DIGESTIVE HEALTH 10 billion cell -200 mg capsule 01/06/2023 Active lactobacillus rhamnosus gg [id number] unt oral capsule (16 sources) Start: take 1 capsule by mouth once daily lactobacillus rhamnosus (CULTURELLE) 10 billion cell capsule Take 1 capsule by mouth once daily. 11/17/2022 Active Comment on above: Take 1 capsule by [facility] once daily. losartan potassium 50 mg oral [...] capsule (3 sources) Nitrofuran Antibacterial Start: End: 06-26-2 023 take 1 capsule by mouth twice daily nitrofurantoin monohydrate and macrocrystal (MACROBID) 100 mg capsule Take 1 capsule by mouth twice daily for 10 days. 20 capsule 0 12/20/2022 12/30/2022 Active Comment on above: Take 1 capsule by [facility] twice daily for 10 days. polyethylene glycol 3350 75317 mg powder for oral solution (9 sources) Osmotic Laxative Start: take 17 g by mouth every twenty-four [...] doses. docusate sodium 50 mg / sennosides, residential 8.6 mg oral tablet (13 sources) Start: 3 End: take 1 tablet by mouth twice daily [...] 11-10-2022 Episodic Other aftercare (1 source) Other nursing home (current) drug therapy; Translations: [Other terminologist (current) drug therapy] Onset: 06-16-2024 Episodic Other [...] Test Name Value Interpretation Reference Range Facility Basic Metabolic Profile (BMP )on 12-08-2024 BUN/CRE 17.8 RATIO Normal 10-20 [facility] Comment on above: Order Comment: Performed By: #### L [id number] #### [facility] [address] [place], [address] Calcium [Mass/Vol] 8.6 mg/dL Normal 7.6-11.0 [facility] Comment on above: Order Comment: . Performed By: #### L [id number] #### [facility] [address] [place], [address] Chloride [Moles/Vol] 108 mmol/L Normal 98-108 [facility] Comment on above: Order Comment: Performed By: #### L 500.2500 #### [facility] [address] [place], [address] CO2 [Moles/Vol] 25.3 mmol/L Normal 21.0-32.0 [facility] Comment on above: Order Comment: 205.1 Performed By: #### L 500.2500 #### [facility] [address] [place], [address] Creatinine [Mass/Vol] 1.19 mg/dL Normal 0.70-1.20 [facility] Comment on above: Order Comment: 205.1 Performed By: #### L 500.2500 #### [facility] [address] [place], [address] GAP 8 Normal 5-15 [facility] Comment on above: Order Comment: . Performed By: #### L 500.2500 #### [facility] [address] [place], [address] GFR/1.73 sq M.predicted among non-blacks MDRD (S/P/Bld) [Vol rate/Area] 46 mL/min/{1.73_m2} Low >60 [facility] Comment on above: Order Comment: . Result Comment: mL/m in/1.73m2 CKD-EPI Creatinine Equation (2020) Performed By: #### L 500.2500 #### [facility] [address] [place], [address] Glucose [Mass/Vol] 96 mg/dL Normal 70-99 [facility] Comment on above: Order Comment: 205.1 Performed By: #### L 500.2500 #### [facility] [address] [place], [address] Potassium [Moles/Vol] 3.5 mmol/L Normal 3.3-5.1 [facility] Comment on above: Order Comment: 205.1 Performed By: #### L 500.2500 #### [facility] [address] [place], [address] Sodium [Moles/Vol] 142 mmol/L Normal 133-145 [facility] Comment on above: Order Comment: 205.1 Performed By: #### L 500.2500 #### [facility] [address] [place], [address] Urea nitrogen [Mass/Vol] 21 mg/dL High 4-19 [facility] Comment on above: Order Comment: 205.1 Performed By: #### L 500.2500 #### [facility] [address] [place], [address] Anion gap in Serum or Plasma Ordered By: Lashanda Stone on 11-12-2024 Anion gap [Moles/Vol] 6 mmol/L - [facility] BUN/creatinine ratioOrdered By: Lashanda Stone on 11-12-2024 Urea nitrogen/Creatinine [Mass ratio] 19.2 mg/mg - [facility] Basic Metabolic Profile (BMP )on 11-12-2024 BUN/CRE 19.2 RATIO Normal - [facility] Comment on above: Order Comment: 205.1 Performed By: #### L 500.2500 #### [facility] [address] [place], [address] Calcium [Mass/Vol] 8.8 mg/dL Normal 7.6-11.0 [facility] Comment on above: Order Comment: 205.1 Performed By: #### L 500.2500 #### [facility] [address] [place], [address] Chloride [Moles/Vol] 111 mmol/L High 98-108 [facility] Comment on above: Order Comment: 205.1 Performed By: #### L 500.2500 #### [facility] [address] [place], [address] CO2 [Moles/Vol] 25.3 mmol/L Normal 21.0-32.0 [facility] Comment on above: Order Comment: 205.1 Performed By: #### L 500.2500 #### [facility] [address] [place], [address] Creatinine [Mass/Vol] 1.14 mg/dL Normal 0.70-1.20 [facility] Comment on above: Order Comment: 205.1 Performed By: #### L 500.2500 #### [facility] [address] [place], [address] GAP 6 Normal 5-15 [facility] Comment on above: Order Comment: 205.1 Performed By: #### L 500.2500 #### [facility] [address] [place], [address] GFR/1.73 sq M.predicted among non-blacks MDRD (S/P/Bld) [Vol rate/Area] 48 mL/min/{1.73_m2} Low >60 [facility] Comment on above: Order Comment: . Result Comment: mL/m in/1.73m2 CKD-EPI Creatinine Equation (2020) Performed By: #### L 500.2500 #### [facility] [address] [place], [address] Glucose [Mass/Vol] 89 mg/dL Normal 70-99 [facility] Comment on above: Order Comment: 205.1 Performed By: #### L 500.2500 #### [facility] [address] [place], [address] Potassium [Moles/Vol] 3.9 mmol/L Normal 3.3-5.1 [facility] Comment on above: Order Comment: 205.1 Performed By: #### L 500.2500 #### [facility] [address] [place], [address] Sodium [Moles/Vol] 142 mmol/L Normal 133-145 [facility] Comment on above: Order Comment: 205.1 Performed By: #### L 500.2500 #### [facility] [address] [place], [address] Urea nitrogen [Mass/Vol] 22 mg/dL High 4-19 [facility] Comment on above: Order Comment: 205.1 Performed By: #### L 500.2500 #### [facility] [address] [place], [address] Carbon dioxide, total [Moles /volume] in Central venous bloodOrdered By: Lashanda Stone on 11-12-2024 CO2 [Moles/Vol] 25.3 mmol/L 21.0-32.0 [facility] Chloride assayOrdered By: Kika Stone on 11-12-2024 Chloride [Moles/Vol] 111 mmol/L High 98-108 [facility] Glomerular filtration rate ( GFR) estimation/1.73 sq m using serum, plasma, or whole bOrdered By: Lashanda Stone on 11-12-2024 GFR/1.73 sq M.predicted among non-blacks MDRD (S/P/Bld) [Vol rate/Area] 48 mL/min/{1.73_m2} Low >60 [facility] Comment on above: mL/min/1.73m2 CKD-EP I Creatinine Equation (2020) Potassium measurement (mass/ volume)Ordered By: Lashanda Stone on 11-12-2024 Potassium (Unsp spec) [Mass/Vol] 3.9 mmol/L 3.3-5.1 [facility] Serum creatinine measurement (mass/volume)Ordered By: Lashanda Stone on 11-12-2024 Creatinine [Mass/Vol] 1.14 mg/dL 0.70-1.20 [facility] Serum glucose measurement (m ass/volume)Ordered By: Lashanda Stone on 11-12-2024 Glucose [Mass/Vol] 89 mg/dL 70-99 [facility] Serum or plasma calcium thanh urement (mass/volume)Ordered By: Lashanda Stone on 11-12-2024 Calcium [Mass/Vol] 8.8 mg/dL 7.6-11.0 [facility] Serum or plasma urea nitroge n measurement (mass/volume)Ordered By: Lashanda Stone on 11-12-2024 Urea nitrogen [Mass/Vol] 22 mg/dL High - [facility] Sodium levelOrdered By: Krysten Stone on 11-12-2024 Sodium [Moles/Vol] 142 mmol/L 133-145 [facility] Anion gap in Serum or Plasma Ordered By: Lashanda Stone on 11-08-2024 Anion gap [Moles/Vol] 8 mmol/L 11-18 [facility] BUN/creatinine ratioOrdered By: Lashanda Stone on 11-08-2024 Urea nitrogen/Creatinine [Mass ratio] 19.5 mg/mg 04-25 [facility] Basic Metabolic Profile (BMP )on 11-08-2024 BUN/CRE 19.5 RATIO Normal 04-25 [facility] Comment on above: Order Comment: . Performed By: #### L 500.2500 #### [facility] [address] [place], [address] GAP 8 Normal 11-18 [facility] Comment on above: Order Comment: 205.1 Performed By: #### L 500.2500 #### [facility] [address] [place], [address] Potassium [Moles/Vol] 3.8 mmol/L Normal 3.3-5.1 [facility] Comment on above: Order Comment: .1 Performed By: #### L 500.2500 #### [facility] [address] [place], [address] Carbon dioxide, total [Moles /volume] in Central venous bloodOrdered By: Lashanda Stone on 11-08-2024 CO2 [Moles/Vol] 25.0 mmol/L Normal 21.0-32.0 [facility] Comment on above: Order Comment: 205.1 Performed By: #### L 500.2500 #### [facility] [address] [place], [address] Chloride assayOrdered By: Kika Stone on 11-08-2024 Chloride [Moles/Vol] 109 mmol/L High 98-108 [facility] Comment on above: Order Comment: 205. Performed By: #### L 500.2500 #### [facility] [address] [place], [place], [id number] Glomerular filtration rate ( GFR) estimation/1.73 sq m using serum, plasma, or whole bOrdered By: Lashanda Stone on 11-08-2024 GFR/1.73 sq M.predicted among non-blacks MDRD (S/P/Bld) [Vol rate/Area] 49 mL/min/{1.73_m2} Low >60 [facility] Comment on above: mL/min/1.73m2 CKD-EP I Creatinine Equation (2020) Order Comment: Result Comment: mL/m in/1.73m2 CKD-EPI Creatinine Equation (2020) Performed By: #### L 500.2500 #### [facility] [address] [place], [place], [id number] Potassium measurement (mass/ volume)Ordered By: Lashanda Stone on 11-08-2024 Potassium (Unsp spec) [Mass/Vol] 3.8 mmol/L 3.3-5.1 [facility] Serum creatinine measurement (mass/volume)Ordered By: Lashanda Stone on 11-08-2024 Creatinine [Mass/Vol] 1.13 mg/dL Normal 0.70-1.20 [facility] Comment on above: Order Comment: 205. Performed By: #### L 500.2500 #### [facility] [address] [place], [place], [id number] Serum glucose measurement (m ass/volume)Ordered By: Lashanda Stone on 11-08-2024 Glucose [Mass/Vol] 88 mg/dL Normal 70-99 [facility] Comment on above: Order Comment: 205. Performed By: #### L 500.2500 #### [facility] [address] [place], [place], [address] [phone] Serum or plasma calcium thanh urement (mass/volume)Ordered By: Lashanda Stone on 11-08-2024 Calcium [Mass/Vol] 8.9 mg/dL Normal 7.6-11.0 [facility] Comment on above: Order Comment: 205.1 Performed By: #### L 500.2500 #### [facility] [address] [place], [place], [id number] [phone] Serum or plasma urea nitroge n measurement (mass/volume)Ordered By: Lashanda Stone on 11-08-2024 Urea nitrogen [Mass/Vol] 22 mg/dL High 4-19 [facility] Comment on above: Order Comment: 205.1 Performed By: #### L 500.2500 #### [facility] [address] [place], [place], [address] [phone] Sodium levelOrdered By: Krysten Stone on 11-08-2024 Sodium [Moles/Vol] 142 mmol/L Normal 133-145 [facility] Comment on above: Order Comment: 205.1 Performed By: #### L 500.2500 #### [facility] [address] [place], [place], [address] Anion gap in Serum or Plasma Ordered By: Marcos Brown on 11-01-2024 Anion gap [Moles/Vol] 10 mmol/L 5-15 [facility] BUN/creatinine ratioOrdered By: Marcos Brown on 11-01-2024 Urea nitrogen/Creatinine [Mass ratio] 25.1 mg/mg High 10- [facility] Basic Metabolic Profile (BMP )on 11-01-2024 BUN/CRE 25.1 RATIO High - [facility] Comment on above: Order Comment: 205.1 Performed By: #### L 500.2500 #### [facility] [address] [place], [place], [address] Calcium [Mass/Vol] 8.9 mg/dL Normal 7.6-11.0 [facility] Comment on above: Order Comment: 205.1 Performed By: #### L 500.2500 #### [facility] [address] [place], [address] Chloride [Moles/Vol] 105 mmol/L Normal 98-108 [facility] Comment on above: Order Comment: 205.1 Performed By: #### L 500.2500 #### [facility] [address] [place], [address] CO2 [Moles/Vol] 25.8 mmol/L Normal 21.0-32.0 [facility] Comment on above: Order Comment: . Performed By: #### L 500.2500 #### [facility] [address] [place], [address] Creatinine [Mass/Vol] 1.32 mg/dL High 0.70-1.20 [facility] Comment on above: Order Comment: . Performed By: #### L 500.2500 #### [facility] [address] [place], [address] GAP 10 Normal 5-15 [facility] Comment on above: Order Comment: . Performed By: #### L 500.2500 #### [facility] [address] [place], [address] GFR/1.73 sq M.predicted among non-blacks MDRD (S/P/Bld) [Vol rate/Area] 41 mL/min/{1.73_m2} Low >60 [facility] Comment on above: Order Comment: . Result Comment: mL/m in/1.73m2 CKD-EPI Creatinine Equation (2020) Performed By: #### L 500.2500 #### [facility] [address] [place], [address] Glucose [Mass/Vol] 110 mg/dL High 70-99 [facility] Comment on above: Order Comment: 205.1 Performed By: #### L 500.2500 #### [facility] [address] [place], [address] Potassium [Moles/Vol] 3.5 mmol/L Normal 3.3-5.1 [facility] Comment on above: Order Comment: 205.1 Performed By: #### L 500.2500 #### [facility] [address] [place], [address] Sodium [Moles/Vol] 141 mmol/L Normal 133-145 [facility] Comment on above: Order Comment: 205.1 Performed By: #### L 500.2500 #### [facility] [address] [place], [address] Urea nitrogen [Mass/Vol] 33 mg/dL High 4-19 [facility] Comment on above: Order Comment: 205.1 Performed By: #### L 500.2500 #### [facility] [address] [place], [address] Carbon dioxide, total [Moles /volume] in Central venous bloodOrdered By: Marcos Brown on 11-01-2024 CO2 [Moles/Vol] 25.8 mmol/L 21.0-32.0 [facility] Chloride assayOrdered By: Donnie Eugene on 11-01-2024 Chloride [Moles/Vol] 105 mmol/L 98-108 [facility] Glomerular filtration rate ( GFR) estimation/1.73 sq m using serum, plasma, or whole bOrdered By: Marcos Brown on 11-01-2024 GFR/1.73 sq M.predicted among non-blacks MDRD (S/P/Bld) [Vol rate/Area] 41 mL/min/{1.73_m2} Low >60 [facility] Comment on above: mL/min/1.73m2 CKD-EP I Creatinine Equation (2020) Potassium measurement (mass/ volume)Ordered By: Marcos Brown on 11-01-2024 Potassium (Unsp spec) [Mass/Vol] 3.5 mmol/L 3.3-5.1 [facility] Serum creatinine measurement (mass/volume)Ordered By: Marcos Brown on 11-01-2024 Creatinine [Mass/Vol] 1.32 mg/dL High 0.70-1.20 [facility] Serum glucose measurement (m ass/volume)Ordered By: Marcos Brown on 11-01-2024 Glucose [Mass/Vol] 110 mg/dL High 70-99 [facility] Serum or plasma calcium thanh urement (mass/volume)Ordered By: Marcos Brown on 11-01-2024 Calcium [Mass/Vol] 8.9 mg/dL 7.6-11.0 [facility] Serum or plasma urea nitroge n measurement (mass/volume)Ordered By: Marcos Brown on 11-01-2024 Urea nitrogen [Mass/Vol] 33 mg/dL High 4-19 [facility] Sodium levelOrdered By: Brain Brown on 11-01-2024 Sodium [Moles/Vol] 141 mmol/L 133-145 [facility] Anion gap in Serum or Plasma Ordered By: Lashanda Stone on 10-27-2024 Anion gap [Moles/Vol] 9 mmol/L 5-15 [facility] BUN/creatinine ratioOrdered By: Lashanda Stone on 10-27-2024 Urea nitrogen/Creatinine [Mass ratio] 22.6 mg/mg High 10- [facility] Basic Metabolic Profile (BMP )on 10-27-2024 BUN/CRE 22.6 RATIO High [facility] Comment on above: Order Comment: 205.1 Performed By: #### L 500.2500 #### [facility] [address] [facility] [place], [address] Calcium [Mass/Vol] 9.4 mg/dL Normal 7.6-11.0 [facility] Comment on above: Order Comment: 205.1 Performed By: #### L 500.2500 #### [facility] [address] [place], [address] Chloride [Moles/Vol] 99 mmol/L Normal 98-108 [facility] Comment on above: Order Comment: 205.1 Performed By: #### L 500.2500 #### [facility] [address] [place], [address] CO2 [Moles/Vol] 32.3 mmol/L High 21.0-32.0 [facility] Comment on above: Order Comment: 205.1 Performed By: #### L 500.2500 #### [facility] [address] [place], [address] Creatinine [Mass/Vol] 1.56 mg/dL High 0.70-1.20 [facility] Comment on above: Order Comment: . Performed By: #### L 500.2500 #### [facility] [address] [place], [address] GAP 9 Normal 5-15 [facility] Comment on above: Order Comment: . Performed By: #### L 500.2500 #### [facility] [address] [place], [address] GFR/1.73 sq M.predicted among non-blacks MDRD (S/P/Bld) [Vol rate/Area] 33 mL/min/{1.73_m2} Low >60 [facility] Comment on above: Order Comment: . Result Comment: mL/m in/1.73m2 CKD-EPI Creatinine Equation (2020) Performed By: #### L 500.2500 #### [facility] [address] [place], [address] Glucose [Mass/Vol] 103 mg/dL High 70-99 [facility] Comment on above: Order Comment: 205.1 Performed By: #### L 500.2500 #### [facility] [address] [place], [address] Potassium [Moles/Vol] 2.9 mmol/L Low 3.3-5.1 [facility] Comment on above: Order Comment: .1 Performed By: #### L 500.2500 #### [facility] [address] [place], [address] Sodium [Moles/Vol] 141 mmol/L Normal 133-145 [facility] Comment on above: Order Comment: 205.1 Performed By: #### L 500.2500 #### [facility] [address] [place], [address] Urea nitrogen [Mass/Vol] 35 mg/dL High 4-19 [facility] Comment on above: Order Comment: 205.1 Performed By: #### L 500.2500 #### [facility] [address] [place], [place], [id number] Carbon dioxide, total [Moles /volume] in Central venous bloodOrdered By: Lashanda Stone on 10-27-2024 CO2 [Moles/Vol] 32.3 mmol/L High 21.0-32.0 [facility] Chloride assayOrdered By: Kika Stone on 10-27-2024 Chloride [Moles/Vol] 99 mmol/L 98-108 [facility] Glomerular filtration rate ( GFR) estimation/1.73 sq m using serum, plasma, or whole bOrdered By: Lashanda Stone on 10-27-2024 GFR/1.73 sq M.predicted among non-blacks MDRD (S/P/Bld) [Vol rate/Area] 33 mL/min/{1.73_m2} Low >60 [facility] Comment on above: mL/min/1.73m2 CKD-EP I Creatinine Equation (2020) Potassium measurement (mass/ volume)Ordered By: Lashanda Stone on 10-27-2024 Potassium (Unsp spec) [Mass/Vol] 2.9 mmol/L Low 3.3-5.1 [facility] Serum creatinine measurement (mass/volume)Ordered By: Lashanda Stone on 10-27-2024 Creatinine [Mass/Vol] 1.56 mg/dL High 0.70-1.20 [facility] Serum glucose measurement (m ass/volume)Ordered By: Lashanda Stone on 10-27-2024 Glucose [Mass/Vol] 103 mg/dL High 70-99 [facility] Serum or plasma calcium thanh urement (mass/volume)Ordered By: Lashanda Stone on 10-27-2024 Calcium [Mass/Vol] 9.4 mg/dL 7.6-11.0 [facility] [facility] Serum or plasma urea nitroge n measurement (mass/volume)Ordered By: Lashanda Stone on 10-27-2024 Urea nitrogen [Mass/Vol] 35 mg/dL High 4-19 [facility] Sodium levelOrdered By: Krysten Stone on 10-27-2024 Sodium [Moles/Vol] 141 mmol/L 133-145 [facility] Anion gap in Serum or Plasma Ordered By: Lashanda Stone on 10-06-2024 Anion gap [Moles/Vol] 11 mmol/L 5- [facility] BUN/creatinine ratioOrdered By: Lashanda Stone on 10-06-2024 Urea nitrogen/Creatinine [Mass ratio] 17.3 mg/mg 10- [facility] Basic Metabolic Profile (BMP )on 10-06-2024 BUN/CRE 17.3 RATIO Normal - [facility] Comment on above: Order Comment: .1 Performed By: #### L 500.2500 #### [facility] Laboratory [address] [place], [address] Calcium [Mass/Vol] 9.1 mg/dL Normal 7.6-11.0 [facility] Comment on above: Order Comment: 205.1 Performed By: #### L [id number] #### [facility] Laboratory [address] [place], [address] Chloride [Moles/Vol] 104 mmol/L Normal 98-108 [facility] Comment on above: Order Comment: 205.1 Performed By: #### L 500.2500 #### [facility] Laboratory [address] [place], [address] CO2 [Moles/Vol] 26.3 mmol/L Normal 21.0-32.0 [facility] Comment on above: Order Comment: 205.1 Performed By: #### L 500.2500 #### [facility] Laboratory [address] [place], [address] Creatinine [Mass/Vol] 1.08 mg/dL Normal 0.70-1.20 [facility] Comment on above: Order Comment: 205.1 Performed By: #### L 500.2500 #### [facility] Laboratory [address] [place], [address] GAP 11 Normal 5-15 [facility] Comment on above: Order Comment: 205.1 Performed By: #### L 500.2500 #### [facility] Laboratory [address] [place], [address] GFR/1.73 sq M.predicted among non-blacks MDRD (S/P/Bld) [Vol rate/Area] 52 mL/min/{1.73_m2} Low >60 [facility] Comment on above: Order Comment: 205.1 Result Comment: mL/m in/1.73m2 CKD-EPI Creatinine Equation (2020) Performed By: #### L 500.2500 #### [facility] Laboratory [address] [place], [address] Glucose [Mass/Vol] 102 mg/dL High 70-99 [facility] Comment on above: Order Comment: 205.1 Performed By: #### L 500.2500 #### [facility] Laboratory [address] [place], [address] Potassium [Moles/Vol] 3.2 mmol/L Low 3.3-5.1 [facility] Comment on above: Order Comment: 205.1 Performed By: #### L 500.2500 #### [facility] Laboratory [address] [place], [address] Sodium [Moles/Vol] 141 mmol/L Normal 133-145 [facility] Comment on above: Order Comment: 205.1 Performed By: #### L 500.2500 #### [facility] Laboratory [address] [place], [place], [address] Urea nitrogen [Mass/Vol] 19 mg/dL Normal 4-19 [facility] Comment on above: Order Comment: 205.1 Performed By: #### L 500.2500 #### [facility] Laboratory [address] [place], [place], [address] Carbon dioxide, total [Moles /volume] in Central venous bloodOrdered By: Lashanda Stone on 10-06-2024 CO2 [Moles/Vol] 26.3 mmol/L 21.0-32.0 [facility] Chloride assayOrdered By: Kika Stone on 10-06-2024 Chloride [Moles/Vol] 104 mmol/L 98-108 [facility] GFR/1.73 sq M.predicted wali g non-blacks MDRD (S/P/Bld) [Vol rate/Area]Ordered By: Lashanda Stone on 10-06-2024 Estimated GFR (MDRD) Non-Af Amer 52 Low >60 [facility] Comment on above: mL/min/1.73m2 CKD-EP I Creatinine Equation (2020) Glomerular filtration rate ( GFR) estimation/1.73 sq m using serum, plasma, or whole bOrdered By: Lashanda Stone on 10-06-2024 GFR/1.73 sq M.predicted among non-blacks MDRD (S/P/Bld) [Vol rate/Area] 52 mL/min/{1.73_m2} Low >60 [facility] Comment on above: mL/min/1.73m2 CKD-EP I Creatinine Equation (2020) Potassium (Unsp spec) [Mass/ Vol]Ordered By: Lashanda Stone on 10-06-2024 Potassium [Moles/Vol] 3.2 mmol/L Low 3.3-5.1 [facility] Potassium measurement (mass/ volume)Ordered By: Lashanda Stone on 10-06-2024 Potassium (Unsp spec) [Mass/Vol] 3.2 mmol/L Low 3.3-5.1 [facility] Serum creatinine measurement (mass/volume)Ordered By: Lashanda Stoen on 10-06-2024 Creatinine [Mass/Vol] 1.08 mg/dL 0.70-1.20 [facility] Serum glucose measurement (m ass/volume)Ordered By: Lashanda Stone on 10-06-2024 Glucose [Mass/Vol] 102 mg/dL High 70-99 [facility] Serum or plasma calcium thanh urement (mass/volume)Ordered By: Lashanda Stone on 10-06-2024 Calcium [Mass/Vol] 9.1 mg/dL 7.6-11.0 [facility] Serum or plasma urea nitroge n measurement (mass/volume)Ordered By: Lashanda Stone on 10-06-2024 Urea nitrogen [Mass/Vol] 19 mg/dL 4-19 [facility] Sodium levelOrdered By: Krysten Stone on 10-06-2024 Sodium [Moles/Vol] 141 mmol/L 133-145 [facility] Anion gap in Serum or Plasma Ordered By: Lashanda Stone on 10-01-2024 Anion gap [Moles/Vol] 11 mmol/L - [facility] BUN/creatinine ratioOrdered By: Lashanda Stone on 10-01-2024 Urea nitrogen/Creatinine [Mass ratio] 19.2 mg/mg 10-20 [facility] Basic Metabolic Profile (BMP )on 10-01-2024 Chloride [Moles/Vol] 106 mmol/L Normal 98-108 [facility] Comment on above: Order Comment: 205.1 Performed By: #### L 500.2500 #### [facility] Laboratory [address] [place], [place], [id number] GAP 11 Normal - [facility] Comment on above: Order Comment: 205.1 Performed By: #### L 500.2500 #### [facility] Laboratory [address] [place], [place], [id number] Carbon dioxide, total [Moles /volume] in Central venous bloodOrdered By: Lashanda Stone on 10-01-2024 CO2 [Moles/Vol] 25.7 mmol/L 21.0-32.0 [facility] Chloride assayOrdered By: Kika Stone on 10-01-2024 Chloride [Moles/Vol] 106 mmol/L 98-108 [facility] GFR/1.73 sq M.predicted wali g non-blacks MDRD (S/P/Bld) [Vol rate/Area]Ordered By: Lashanda Stone on 10-01-2024 Estimated GFR (MDRD) Non-Af Amer 47 Low >60 [facility] Comment on above: mL/min/1.73m2 CKD-EP I Creatinine Equation (2020) Glomerular filtration rate ( GFR) estimation/1.73 sq m using serum, plasma, or whole bOrdered By: Lashanda Stone on 10-01-2024 GFR/1.73 sq M.predicted among non-blacks MDRD (S/P/Bld) [Vol rate/Area] 47 mL/min/{1.73_m2} Low >60 [facility] Comment on above: mL/min/1.73m2 CKD-EP I Creatinine Equation (2020) Potassium (Unsp spec) [Mass/ Vol]Ordered By: Lashanda Stone on 10-01-2024 Potassium [Moles/Vol] 3.4 mmol/L 3.3-5.1 [facility] Potassium measurement (mass/ volume)Ordered By: Lashanda Stone on 10-01-2024 Potassium (Unsp spec) [Mass/Vol] 3.4 mmol/L 3.3-5.1 [facility] Serum creatinine measurement (mass/volume)Ordered By: Lashanda Stone on 10-01-2024 Creatinine [Mass/Vol] 1.16 mg/dL 0.70-1.20 [facility] Serum glucose measurement (m ass/volume)Ordered By: Lashanda Stone on 10-01-2024 Glucose [Mass/Vol] 99 mg/dL 70-99 [facility] Serum or plasma calcium thanh urement (mass/volume)Ordered By: Lashanda Stone on 10-01-2024 Calcium [Mass/Vol] 9.0 mg/dL 7.6-11.0 [facility] Serum or plasma urea nitroge n measurement (mass/volume)Ordered By: Lashanda Stone on 10-01-2024 Urea nitrogen [Mass/Vol] 22 mg/dL High 4-19 [facility] Sodium levelOrdered By: Krysten Stone on 10-01-2024 Sodium [Moles/Vol] 142 mmol/L 133-145 [facility] Hemoglobin A1con 09-07-2024 HbA1c (Bld) [Mass fraction] 5.9 % Normal <=5.6 [facility] Comment on above: Order Comment: Performed By: #### L 501.9985 #### [facility] Laboratory [address] [place], [place], [id number] (026) Hemoglobin A1c percentageOrd ered By: [facility] on 09-07-2024 HbA1c (Bld) [Mass fraction] 5.9 % >5.7 [facility] Basic Metabolic Profile (BMP )on 08-04-2024 BUN/CRE 26.0 RATIO High 10-20 [facility] Comment on above: Order Comment: Performed By: #### L 500.2500 #### [facility] Laboratory [address] [place], [address] CA,Total 8.6 mg/dL Normal 8.5-10.1 [facility] Comment on above: Order Comment: Performed By: #### L 500.2500 #### [facility] Laboratory [address] [place], [address] Chloride [Moles/Vol] 111 mmol/L High 98-107 [facility] Comment on above: Order Comment: Performed By: #### L 500.2500 #### [facility] Laboratory [address] [place], [address] CO2 [Moles/Vol] 23.0 mmol/L Normal 21.0-32.0 [facility] Comment on above: Order Comment: Performed By: #### L 500.2500 #### [facility] Laboratory [address] [place], [address] Creatinine [Mass/Vol] 0.96 mg/dL Normal 0.55-1.02 [facility] Comment on above: Order Comment: Result Comment: The validity of the calculated GFR GFRAA in patients over 70 years has not been determined. Clinical correlation is essential. Performed By: #### L 500.2500 #### [facility] Laboratory [address] [place], [address] EST GFR - AA 72 mL/min Normal >60 [facility] Comment on above: Order Comment: Result Comment: Afri can Welsh GFR Calc Performed By: #### L 500.2500 #### [facility] Laboratory [address] [place], [address] GAP 9 Normal 5-15 [facility] Comment on above: Order Comment: Performed By: #### L 500.2500 #### [facility] Laboratory [address] [place], [address] GFR/1.73 sq M.predicted among non-blacks MDRD (S/P/Bld) [Vol rate/Area] 59 mL/min/{1.73_m2} Low >60 [facility] Comment on above: Order Comment: Result Comment: Non- GFR Calc Performed By: #### L 500.2500 #### [facility] Laboratory [address] [place], [address] Glucose [Mass/Vol] 104 mg/dL Normal 74-106 [facility] Comment on above: Order Comment: Result Comment: Fast ing Glucose result from 100 to 125 mg/dL suggests IMPAIRED HOMEOSTASIS per A.D.A. criteria. Performed By: #### L 500.2500 #### [facility] Laboratory [address] [place], [address] Potassium [Moles/Vol] 3.7 mmol/L Normal 3.5-5.1 [facility] Comment on above: Order Comment: Performed By: #### L 500.2500 #### [facility] Laboratory [address] [place], [address] Sodium [Moles/Vol] 142 mmol/L Normal 136-145 [facility] Comment on above: Order Comment: Performed By: #### L 500.2500 #### [facility] Laboratory [address] [place], [place], [id number] (479) Urea nitrogen [Mass/Vol] 25 mg/dL High 7-18 [facility] Comment on above: Order Comment: Performed By: #### L 500.2500 #### [facility] Laboratory [address] [place], [place], [address] Blood urea nitrogen (BUN)/cr eatinine ratioOrdered By: Marcos Brown on 08-04-2024 Urea nitrogen/Creatinine [Mass ratio] 26.0 mg/mg High 10-20 [facility] Carbon dioxide measurementOr dered By: Marcos Brown on 08-04-2024 CO2 [Moles/Vol] 23.0 mmol/L 21.0-32.0 [facility] Chloride measurementOrdered By: Marcos Brown on 08-04-2024 Chloride [Moles/Vol] 111 mmol/L High 98-107 [facility] Estimated glomerular filtrat ion rate (GFR) AmericanOrdered By: Marcos Brown on 08-04-2024 Estimated GFR (MDRD) Amer 72 mL/min >60 [facility] Comment on above: GFR Calc Glomerular filtration rate ( GFR) estimationOrdered By: Marcos Brown on 08-04-2024 Estimated GFR (MDRD) Non-Af Amer 59 mL/min Low >60 [facility] Comment on above: Non- GFR Calc GFR/1.73 sq M.predicted among non-blacks MDRD (S/P/Bld) [Vol rate/Area] 59 mL/min/{1.73_m2} Low >60 [facility] Comment on above: Non- GFR Calc Glucose measurementOrdered B y: Marcos Brown on 08-04-2024 Glucose [Mass/Vol] 104 mg/dL 74-106 [facility] Comment on above: Fasting Glucose resu lt from 100 to 125 mg/dL suggests IMPAIRED HOMEOSTASIS per A.D.A. criteria. Potassium measurementOrdered By: Marcos Brown on 08-04-2024 Potassium [Moles/Vol] 3.7 mmol/L 3.5-5.1 [facility] Serum anion gap measurementO rdered By: Marcos Brown on 08-04-2024 Anion gap [Moles/Vol] 9 mmol/L 5-15 [facility] Serum or plasma calcium thanh urement (mass/volume)Ordered By: Marcos Brown on 08-04-2024 Calcium [Mass/Vol] 8.6 mg/dL 8.5-10.1 [facility] Serum or plasma creatinine m easurement (mass/volume)Ordered By: Marcos Brown on 08-04-2024 Creatinine [Mass/Vol] 0.96 mg/dL 0.55-1.02 [facility] Comment on above: The validity of the calculated GFR & GFRAA in patients over 70 years has not been determined. Clinical correlation is essential. Serum or plasma urea nitroge n measurement (mass/volume)Ordered By: Marcos Brown on 08-04-2024 Urea nitrogen [Mass/Vol] 25 mg/dL High 7-18 [facility] Sodium levelOrdered By: Brain Brown on 08-04-2024 Sodium [Moles/Vol] 142 mmol/L 136-145 [facility] Basic Metabolic Profile (BMP )on 06-02-2024 BUN/CRE 25.5 RATIO High 10-20 [facility] Comment on above: Order Comment: 205.1 Performed By: #### L 500.2500 #### [facility] Laboratory [address] [place], [address] CA,Total 8.2 mg/dL Low 8.5-10.1 [facility] Comment on above: Order Comment: 205.1 Performed By: #### L 500.2500 #### [facility] Laboratory [address] [place], [address] Chloride [Moles/Vol] 113 mmol/L High 98-107 [facility] Comment on above: Order Comment: 205.1 Performed By: #### L 500.2500 #### [facility] Laboratory [address] [place], [address] CO2 [Moles/Vol] 28.0 mmol/L Normal 21.0-32.0 [facility] Comment on above: Order Comment: 205.1 Performed By: #### L 500.2500 #### [facility] Laboratory [address] [place], [address] Creatinine [Mass/Vol] 1.02 mg/dL Normal 0.55-1.02 [facility] Comment on above: Order Comment: 205.1 Result Comment: The validity of the calculated GFR GFRAA in patients over 70 years has not been determined. Clinical correlation is essential. Performed By: #### L 500.2500 #### [facility] Laboratory [address] [place], [address] EST GFR - AA 67 mL/min Normal >60 [facility] Comment on above: Order Comment: 205.1 Result Comment: Afri can Welsh GFR Calc Performed By: #### L 500.2500 #### [facility] Laboratory [address] [place], [address] GAP 2 Low 5-15 [facility] Comment on above: Order Comment: 205.1 Performed By: #### L 500.2500 #### [facility] Laboratory [address] [place], [address] GFR/1.73 sq M.predicted among non-blacks MDRD (S/P/Bld) [Vol rate/Area] 55 mL/min/{1.73_m2} Low >60 [facility] Comment on above: Order Comment: 205.1 Result Comment: Non- GFR Calc Performed By: #### L 500.2500 #### [facility] Laboratory [address] [place], [address] Glucose [Mass/Vol] 94 mg/dL Normal 74-106 [facility] Comment on above: Order Comment: 205.1 Performed By: #### L 500.2500 #### [facility] Laboratory [address] [place], [address] Potassium [Moles/Vol] 3.5 mmol/L Normal 3.5-5.1 [facility] Comment on above: Order Comment: 205.1 Performed By: #### L 500.2500 #### [facility] Laboratory [address] [place], [address] Sodium [Moles/Vol] 143 mmol/L Normal 136-145 [facility] Comment on above: Order Comment: 205.1 Performed By: #### L 500.2500 #### [facility] Laboratory [address] [place], [address] Urea nitrogen [Mass/Vol] 26 mg/dL High 7-18 [facility] Comment on above: Order Comment: 205.1 Performed By: #### L 500.2500 #### [facility] Laboratory [address] [place], [address] Blood urea nitrogen (BUN)/cr eatinine ratioOrdered By: [facility] on 06-02-2024 Urea nitrogen/Creatinine [Mass ratio] 25.5 mg/mg High 10-20 [facility] Carbon dioxide measurementOr dered By: [facility] on 06-02-2024 CO2 [Moles/Vol] 28.0 mmol/L 21.0-32.0 [facility] Chloride measurementOrdered By: [facility] on 06-02-2024 Chloride [Moles/Vol] 113 mmol/L High 98-107 [facility] Estimated glomerular filtrat ion rate (GFR) AmericanOrdered By: [facility] on 06-02-2024 Estimated GFR (MDRD) Amer 67 mL/min >60 [facility] Comment on above: GFR Calc Glomerular filtration rate ( GFR) estimationOrdered By: [facility] on 06-02-2024 Estimated GFR (MDRD) Non-Af Amer 55 mL/min Low >60 [facility] Comment on above: Non- GFR Calc Glucose measurementOrdered B y: [facility] on 06-02-2024 Glucose [Mass/Vol] 94 mg/dL 74-106 [facility] Potassium measurementOrdered By: [facility] on 06-02-2024 Potassium [Moles/Vol] 3.5 mmol/L 3.5-5.1 [facility] Serum anion gap measurementO rdered By: [facility] on 06-02-2024 Anion gap [Moles/Vol] 2 mmol/L Low 5-15 [facility] Serum or plasma calcium thanh urement (mass/volume)Ordered By: [facility] on 06-02-2024 Calcium [Mass/Vol] 8.2 mg/dL Low 8.5-10.1 [facility] Serum or plasma creatinine m easurement (mass/volume)Ordered By: [facility] on 06-02-2024 Creatinine [Mass/Vol] 1.02 mg/dL 0.55-1.02 [facility] Comment on above: The validity of the calculated GFR & GFRAA in patients over 70 years has not been determined. Clinical correlation is essential. Serum or plasma urea nitroge n measurement (mass/volume)Ordered By: [facility] on 06-02-2024 Urea nitrogen [Mass/Vol] 26 mg/dL High 7-18 [facility] Sodium levelOrdered By: [facility] on 06-02-2024 Sodium [Moles/Vol] 143 mmol/L 136-145 [facility] CNOVon 05-13-2024 CNOV Office Visit (CVAKPO) MYRNA SARAVIA ([id number]) 1945 F Date Time Provider Department 05/13/24 2:30 PM APURVA BRUNO During your visit today, we recorded the following information about you: Pulse Blood pressure Weight Height 68/minute 146/83 80.3 kg 1.626 m Apurva Bruno APRN.CNP 05/14/2024 11:01 AM Signed [facility] Established Visit Consultation is requested by: No referring provider defined for this encounter. PCP: Evin Garcia ([facility]) [address] [place] [address] CEREBROVASCULAR HISTORY Myrna Saravia is a 77 year old female presenting for hospital discharge follow up. Admitted to [facility] 11/10-11/16/22. From discharge summary: 77-year-old female presented [facility] for acute onset of right upper extremity and right lower extremity weakness. Then was called and she was presented to [facility] where telestroke was called. She had [...] received cardiac event monitor -started Remeron in [facility] for mood (crying, bouts of anger) [...] -presents with her daughter Brooklynn -in different [place] [facility], moved about a week ago- [facility] in [place] -aphasia and dysarthria improving -she still cannot [...] with he (more content not included)... Normal [facility] Basic Metabolic Profile (BMP )on 04-13-2024 BUN/CRE 25.2 RATIO High 10-20 [facility] Comment on above: Order Comment: 205.1 Performed By: #### L 500.2500 #### [facility] Laboratory [address] [place], [address] CA,Total 8.6 mg/dL Normal 8.5-10.1 [facility] Comment on above: Order Comment: 205.1 Performed By: #### L 500.2500 #### [facility] Laboratory [address] [place], [address] Chloride [Moles/Vol] 112 mmol/L High 98-107 [facility] Comment on above: Order Comment: 205.1 Performed By: #### L 500.2500 #### [facility] Laboratory [address] [place], [address] CO2 [Moles/Vol] 27.0 mmol/L Normal 21.0-32.0 [facility] Comment on above: Order Comment: 205.1 Performed By: #### L 500.2500 #### [facility] Laboratory [address] [place], [address] Creatinine [Mass/Vol] 0.99 mg/dL Normal 0.55-1.02 [facility] Comment on above: Order Comment: 205.1 Result Comment: The validity of the calculated GFR GFRAA in patients over 70 years has not been determined. Clinical correlation is essential. Performed By: #### L 500.2500 #### [facility] Laboratory [address] [place], [address] EST GFR - AA 69 mL/min Normal >60 [facility] Comment on above: Order Comment: 205.1 Result Comment: Afri can Welsh GFR Calc Performed By: #### L 500.2500 #### [facility] Laboratory [address] [place], [address] GAP 6 Normal 5-15 [facility] Comment on above: Order Comment: 205.1 Performed By: #### L 500.2500 #### [facility] Laboratory [address] [place], [address] GFR/1.73 sq M.predicted among non-blacks MDRD (S/P/Bld) [Vol rate/Area] 57 mL/min/{1.73_m2} Low >60 [facility] Comment on above: Order Comment: 205.1 Result Comment: Non- GFR Calc Performed By: #### L 500.2500 #### [facility] Laboratory [address] [place], [address] Glucose [Mass/Vol] 97 mg/dL Normal 74-106 [facility] Comment on above: Order Comment: 205.1 Performed By: #### L 500.2500 #### [facility] Laboratory [address] [place], [address] Potassium [Moles/Vol] 3.4 mmol/L Low 3.5-5.1 [facility] Comment on above: Order Comment: 205.1 Performed By: #### L 500.2500 #### [facility] Laboratory [address] [place], [address] Sodium [Moles/Vol] 145 mmol/L Normal 136-145 [facility] Comment on above: Order Comment: 205.1 Performed By: #### L 500.2500 #### [facility] Laboratory [address] [place], [address] Urea nitrogen [Mass/Vol] 25 mg/dL High 7-18 [facility] Comment on above: Order Comment: 205.1 Performed By: #### L 500.2500 #### [facility] Laboratory [address] [place], [address] CBC-Complete Blood Cnt No Di jerzyon 04-13-2024 Erythrocyte distribution width (RBC) [Ratio] 13.8 % Normal 11.6-14.6 [facility] Comment on above: Order Comment: 205.1 Performed By: #### L 500.2500 #### [facility] Laboratory [address] [place], [address] Hematocrit (Bld) [Volume fraction] 36.1 % Low 37-47 [facility] Comment on above: Order Comment: 205.1 Performed By: #### L 500.2500 #### [facility] [address] [place], [address] Hemoglobin (Bld) [Mass/Vol] 11.4 g/dL Low 12.0-15.0 [facility] Comment on above: Order Comment: .1 Performed By: #### L 500.2500 #### [facility] [address] [place], [address] MCH (RBC) [Entitic mass] 29.8 pg Normal 27.0-32.0 [facility] Comment on above: Order Comment: 205.1 Performed By: #### L 500.2500 #### [facility] [address] [place], [address] MCHC (RBC) [Mass/Vol] 31.6 g/dL Low 32-36 [facility] Comment on above: Order Comment: 205.1 Performed By: #### L 500.2500 #### [facility] [address] [place], [address] MCV (RBC) [Entitic vol] 94.5 fL Normal 81-99 [facility] Comment on above: Order Comment: 205.1 Performed By: #### L 500.2500 #### [facility] [address] [place], [address] Platelet mean volume (Bld) [Entitic vol] 10.2 fL Normal 6.2-12.0 [facility] Comment on above: Order Comment: 205.1 Performed By: #### L 500.2500 #### [facility] [address] [place], [address] Platelets (Bld) [#/Vol] 154 10*3/uL Normal 150-450 [facility] Comment on above: Order Comment: 205.1 Performed By: #### L 500.2500 #### [facility] [address] [place], [address] RBC (Bld) [#/Vol] 3.82 10*6/uL Low 4.2-5.4 [facility] Comment on above: Order Comment: 205.1 Performed By: #### L 500.2500 #### [facility] [address] [place], [address] RDW SD 47.7 fl High 35.1-43.9 [facility] Comment on above: Order Comment: 205.1 Performed By: #### L 500.2500 #### [facility] [address] [place], [address] WBC (Bld) [#/Vol] 5.1 10*3/uL Normal 4.4-11.0 [facility] Comment on above: Order Comment: 205.1 Performed By: #### L 500.2500 #### [facility] [address] [place], [address] Lipid Profileon 03-23-2024 Cholesterol [Mass/Vol] 112 mg/dL Normal 200 [facility] Comment on above: Order Comment: 205.1 Result Comment: <200 mg/dL Desirable 200-240 mg/dL Borderline >240 mg/dL High Risk Performed By: #### L 500.2500 #### [facility] [address] [place], [address] Cholesterol in HDL [Mass/Vol] 50 mg/dL Normal [facility] Comment on above: Order Comment: 205.1 Result Comment: The drugs N-Acetylcysteine and Metamizole may falsely depress this assay. Reference Range HDL <40 mg/dL Low HDL Cholesterol HDL >or= 60 mg/dL High HDL Cholesterol Performed By: #### L 500.2500 #### [facility] [address] [place], [address] Cholesterol in LDL [Mass/Vol] 53 mg/dL Normal 0-130 [facility] Comment on above: Order Comment: 205.1 Performed By: #### L 500.2500 #### [facility] [address] [place], [address] Cholesterol in VLDL [Mass/Vol] 9 mg/dL Normal 5-40 [facility] Comment on above: Order Comment: 205.1 Performed By: #### L 500.2500 #### [facility] [address] [place], [address] Triglyceride [Mass/Vol] 46 mg/dL Normal [facility] Comment on above: Order Comment: 205.1 Result Comment: The drugs N-Acetylcysteine and Metamizole may falsely depress this assay. Serum Triglycerides Reference Interval Normal <150 mg/dL Borderline high 150 - 199 mg/dL High 200 - 499 mg/dL Very High > or = 500 mg/dL Performed By: #### L 500.2500 #### [facility] [address] [place], [address] Urine Cultureon 02-29-2024 [facility] Providencia stuartii Cameron Count 11,000-25,000 Providencia stuartii: REACTION Ampicillin Islt [...] TMP SMX Islt KARL <=20 S Normal [facility] Comment on above: Performed By: #### M 100.2200, L400.0001 #### [facility] [address] [place], [address] Urinalysis, Completeon 02-26 WBC 0-5 SEEN Normal 0-5 [facility] Comment on above: Order Comment: ARY TER SPECIMEN Performed By: #### M 100.2200, L400.0001 #### [facility] [address] [place], [address] BACTERIA 0 SEEN Normal None Seen [facility] Comment on above: Order Comment: ARY TER SPECIMEN Performed By: #### M 100.2200, L400.0001 #### [facility] [address] [place], [address] EPI,SQUAMOUS 0 SEEN Normal 5-10 [facility] Comment on above: Order Comment: ARY TER SPECIMEN Performed By: #### M 100.2200, L400.0001 #### [facility] [address] [place], [address] Mucus Ql (Urine sed) 0 SEEN Normal [facility] Comment on above: Order Comment: ARY TER SPECIMEN Performed By: #### M 100.2200, L400.0001 #### [facility] [address] [place], [address] RBC 0 SEEN Normal 0-5 [facility] Comment on above: Order Comment: ARY TER SPECIMEN Performed By: #### M 100.2200, L400.0001 #### [facility] [address] [place], [address] Basic Metabolic Profile (BMP )on 02-24-2024 Chloride [Moles/Vol] 110 mmol/L High 98-107 [facility] Comment on above: Order Comment: Result Comment: . AMENDED REPORT 02/24/246 CL previously reported as: 110 H mmol/L Performed By: #### L 100.0500, L500.2500 #### [facility] [address] [place], [address] CO2 [Moles/Vol] 29.0 mmol/L Normal 21.0-32.0 [facility] Comment on above: Order Comment: Result Comment: . AMENDED REPORT 02/24/241205 CO2 previously reported as: 29.0 mmol/L Performed By: #### L 100.0500, L500.2500 #### [facility] [address] [place], [address] GAP 3 Low 5-15 [facility] Comment on above: Order Comment: Result Comment: . AMENDED REPORT 02/24/241205 GAP previously reported as: 3 L Performed By: #### L 100.0500, L500.2500 #### [facility] [address] [place], [address] Potassium [Moles/Vol] 3.7 mmol/L Normal 3.5-5.1 [facility] Comment on above: Order Comment: Result Comment: . AMENDED REPORT 02/24/241205 K previously reported as: 3.7 mmol/L Performed By: #### L 100.0500, L500.2500 #### [facility] [address] [place], [address] BUN/CRE 24.8 RATIO High 10-20 [facility] Comment on above: Order Comment: Result Comment: . AMENDED REPORT 02/24/245 BUN/CRE previously reported as: 24.8 H RATIO Performed By: #### L 100.0500, L500.2500 #### [facility] [address] [place], [address] CA,Total 8.9 mg/dL Normal 8.5-10.1 [facility] Comment on above: Order Comment: Result Comment: . AMENDED REPORT 02/24/241204 CA previously reported as: 8.9 mg/dL Performed By: #### L 100.0500, L500.2500 #### [facility] [address] [place], [address] Creatinine [Mass/Vol] 1.09 mg/dL High 0.55-1.02 [facility] Comment on above: Order Comment: Result [...] Performed By: #### L 100.0500, L500.2500 #### [facility] [address] [place], [address] EST GFR - AA 62 mL/min Normal >60 [facility] Comment on above: Order Comment: Result Comment: Afri can Welsh GFR Calc . AMENDED REPORT 02/24/241204 EST GFR - AA previously reported as: 62 mL/min GFR Calc Performed By: #### L 100.0500, L500.2500 #### [facility] [address] [place], [address] GFR/1.73 sq M.predicted among non-blacks MDRD (S/P/Bld) [Vol rate/Area] 51 mL/min/{1.73_m2} Low >60 [facility] Comment on above: Order Comment: Result Comment: Non- GFR Calc . AMENDED REPORT 02/24/241204 EST GFR previously reported as: 51 L mL/min Non- GFR Calc Performed By: #### L 100.0500, L500.2500 #### [facility] [address] [place], [address] Sodium [Moles/Vol] 142 mmol/L Normal 136-145 [facility] Comment on above: Order Comment: Result Comment: . AMENDED REPORT 02/24/24 1205 NA previously reported as: 142 mmol/L Performed By: #### L 100.0500, L500.2500 #### [facility] [address] [place], [address] Glucose [Mass/Vol] 95 mg/dL Normal 74-106 [facility] Comment on above: Order Comment: Result Comment: . AMENDED REPORT 02/24/24 1204 GLU previously reported as: 95 mg/dL Performed By: #### L 100.0500, L500.2500 #### [facility] [address] [place], [address] Urea nitrogen [Mass/Vol] 27 mg/dL High 7-18 [facility] Comment on above: Order Comment: Result Comment: . AMENDED REPORT 02/24/241203 BUN previously reported as: 27 H mg/dL Performed By: #### L 100.0500, L500.2500 #### [facility] [address] [place], [address] CBC-Complete Blood Cnt No Di ffon 02-24-2024 Erythrocyte distribution width (RBC) [Ratio] 13.5 % Normal 11.6-14.6 [facility] Comment on above: Order Comment: Result Comment: . AMENDED REPORT 02/24/24 1200 RDW CV previously reported as: 13.5 % Performed By: #### L 100.0500, L500.2500 #### [facility] [address] [place], [address] MCH (RBC) [Entitic mass] 30.8 pg Normal 27.0-32.0 [facility] Comment on above: Order Comment: Result Comment: . AMENDED REPORT 02/24/24 1200 MCH previously reported as: 30.8 pg Performed By: #### L 100.0500, L500.2500 #### [facility] [address] [place], [address] MCHC (RBC) [Mass/Vol] 32.2 g/dL Normal 32-36 [facility] Comment on above: Order Comment: Result Comment: . AMENDED REPORT 02/24/24 1200 MCHC previously reported as: 32.2 g/dL Performed By: #### L 100.0500, L500.2500 #### [facility] [address] [place], [address] Platelet mean volume (Bld) [Entitic vol] 9.2 fL Normal 6.2-12.0 [facility] Comment on above: Order Comment: Result Comment: . AMENDED REPORT 02/24/24 1200 MPV previously reported as: 9.2 fl Performed By: #### L 100.0500, L500.2500 #### [facility] [address] [place], [address] Platelets (Bld) [#/Vol] 256 10*3/uL Normal 150-450 [facility] Comment on above: Order Comment: Result Comment: . AMENDED REPORT 02/24/24 1200 PLT previously reported as: 256 K/mm3 Performed By: #### L 100.0500, L500.2500 #### [facility] [address] [place], [address] RDW SD 47.5 fl High 35.1-43.9 [facility] Comment on above: Order Comment: Result Comment: . AMENDED REPORT 02/24/24 1200 RDW SD previously reported as: 47.5 H fl Performed By: #### L 100.0500, L500.2500 #### [facility] [address] [place], [address] Hematocrit (Bld) [Volume fraction] 39.4 % Normal 37-47 [facility] Comment on above: Order Comment: Result Comment: . AMENDED REPORT 02/24/241158 HCT previously reported as: 39.4 % Performed By: #### L 100.0500, L500.2500 #### [facility] [address] [place], [address] Hemoglobin (Bld) [Mass/Vol] 12.7 g/dL Normal 12.0-15.0 [facility] Comment on above: Order Comment: Result Comment: . AMENDED REPORT 02/24/241158 HGB previously reported as: 12.7 g/dL Performed By: #### L 100.0500, L500.2500 #### [facility] [address] [place], [address] MCV (RBC) [Entitic vol] 95.4 fL Normal 81-99 [facility] Comment on above: Order Comment: Result Comment: . AMENDED REPORT 02/24/241158 MCV previously reported as: 95.4 fL Performed By: #### L 100.0500, L500.2500 #### [facility] [address] [place], [address] RBC (Bld) [#/Vol] 4.13 10*6/uL Low 4.2-5.4 [facility] Comment on above: Order Comment: Result Comment: . AMENDED REPORT 02/24/241158 RBC previously reported as: 4.13 L M/mm3 Performed By: #### L 100.0500, L500.2500 #### [facility] [address] [place], [address] WBC (Bld) [#/Vol] 5.8 10*3/uL Normal 4.4-11.0 [facility] Comment on above: Order Comment: Result Comment: . AMENDED REPORT 02/24/24 1159 WBC previously reported as: 5.8 K/mm3 Performed By: #### L 100.0500, L500.2500 #### [facility] [address] [place], [address] Basic Metabolic Profile (BMP )on 01-09-2024 BUN/CRE 29.7 RATIO High 10-20 [facility] Comment on above: Order Comment: Performed By: #### L 100.0500, L500.2500 #### [facility] [address] [place], [address] CA,Total 8.9 mg/dL Normal 8.5-10.1 [facility] Comment on above: Order Comment: Performed By: #### L 100.0500, L500.2500 #### [facility] [address] [place], [address] Chloride [Moles/Vol] 110 mmol/L High 98-107 [facility] Comment on above: Order Comment: Performed By: #### L 100.0500, L500.2500 #### [facility] [address] [place], [address] CO2 [Moles/Vol] 28.0 mmol/L Normal 21.0-32.0 [facility] Comment on above: Order Comment: Performed By: #### L 100.0500, L500.2500 #### [facility] [address] [place], [address] Creatinine [Mass/Vol] 1.01 mg/dL Normal 0.55-1.02 [facility] Comment on above: Order Comment: Result Comment: The validity of the calculated GFR GFRAA in patients over 70 years has not been determined. Clinical correlation is essential. Performed By: #### L 100.0500, L500.2500 #### [facility] [address] [place], [address] EST GFR - AA 68 mL/min Normal >60 [facility] Comment on above: Order Comment: Result Comment: Afri can Welsh GFR Calc Performed By: #### L 100.0500, L500.2500 #### [facility] [address] [place], [address] GAP 5 Normal 5-15 [facility] Comment on above: Order Comment: Performed By: #### L 100.0500, L500.2500 #### [facility] [address] [place], [address] GFR/1.73 sq M.predicted among non-blacks MDRD (S/P/Bld) [Vol rate/Area] 56 mL/min/{1.73_m2} Low >60 [facility] Comment on above: Order Comment: Result Comment: Non- GFR Calc Performed By: #### L 100.0500, L500.2500 #### [facility] [address] [place], [address] Glucose [Mass/Vol] 89 mg/dL Normal 74-106 [facility] Comment on above: Order Comment: Performed By: #### L 100.0500, L500.2500 #### [facility] [address] [place], [address] Potassium [Moles/Vol] 3.5 mmol/L Normal 3.5-5.1 [facility] Comment on above: Order Comment: Performed By: #### L 100.0500, L500.2500 #### [facility] [address] [place], [address] Sodium [Moles/Vol] 143 mmol/L Normal 136-145 [facility] Comment on above: Order Comment: 205-1 Performed By: #### L 100.0500, L500.2500 #### [facility] [address] [place], [address] Urea nitrogen [Mass/Vol] 30 mg/dL High 7-18 [facility] Comment on above: Order Comment: Performed By: #### L 100.0500, L500.2500 #### [facility] [address] [place], [address] CBC-Complete Blood Cnt No Di ffon 01-09-2024 Erythrocyte distribution width (RBC) [Ratio] 13.6 % Normal 11.6-14.6 [facility] Comment on above: Performed By: #### L 100.0500, L500.2500 #### [facility] [address] [place], [address] Hematocrit (Bld) [Volume fraction] 38.2 % Normal 37-47 [facility] Comment on above: Performed By: #### L 100.0500, L500.2500 #### [facility] [address] [place], [address] Hemoglobin (Bld) [Mass/Vol] 12.0 g/dL Normal 12.0-15.0 [facility] Comment on above: Performed By: #### L 100.0500, L500.2500 #### [facility] [address] [place], [address] MCH (RBC) [Entitic mass] 29.4 pg Normal 27.0-32.0 [facility] Comment on above: Performed By: #### L 100.0500, L500.2500 #### [facility] [address] [place], [address] MCHC (RBC) [Mass/Vol] 31.4 g/dL Low 32-36 [facility] Comment on above: Performed By: #### L 100.0500, L500.2500 #### [facility] [address] [place], [address] MCV (RBC) [Entitic vol] 93.6 fL Normal 81-99 [facility] Comment on above: Performed By: #### L 100.0500, L500.2500 #### [facility] [address] [place], [address] Platelet mean volume (Bld) [Entitic vol] 10.0 fL Normal 6.2-12.0 [facility] Comment on above: Performed By: #### L 100.0500, L500.2500 #### [facility] [address] [place], [address] Platelets (Bld) [#/Vol] 156 10*3/uL Normal 150-450 [facility] Comment on above: Performed By: #### L 100.0500, L500.2500 #### [facility] [address] [place], [address] RBC (Bld) [#/Vol] 4.08 10*6/uL Low 4.2-5.4 [facility] Comment on above: Performed By: #### L 100.0500, L500.2500 #### [facility] [address] [place], [address] RDW SD 47.1 fl High 35.1-43.9 [facility] Comment on above: Performed By: #### L 100.0500, L500.2500 #### [facility] [address] [place], [address] WBC (Bld) [#/Vol] 5.5 10*3/uL Normal 4.4-11.0 [facility] Comment on above: Performed By: #### L 100.0500, L500.2500 #### [facility] [address] [place], [address] CNOVon 11-21-2023 CNOV Office Visit (UROLSF) MYRNA SARAVIA ([id number]) 1945 F Date Time Provider Department 11/21/23 1:45 PM LASHANDA ALBRECHT [facility] During your visit today, we recorded the following information about you: Pulse Blood pressure Height 85/minute 140/83 1.626 m Lashanda Albrecht APRN.[facility] 11/21/2023 2:31 PM Addendum ESTABLISHED PATIENT OFFICE VISIT HISTORY OF PRESENT ILLNESS Myrna Saravia is a 78 year old female who presents today in f/u. 04/14/23: Patient with a h/o urinary retention, UTI, CVA. Patient presents today in f/u. Patient now at [facility]. Recent UTI on 04/02/23. Finished a [...] the [facility] Mostly has incontinence into her depends. Today's note: Patient with a h/o CVA, urinary retention, UTI. Patient is still residing at [facility]. Her last UTI was on 04/02/23. [...] (no units) Date Value 12/03/2022 Negative Specific [place], Ur (no units) Date Value 12/03/2022 >=1.030 [...] mL syrup chlorthalidone (HYGROTON) 25 mg tablet Zeus 10 billion cell -200 mg capsule polyethylene [...] PM Mod (more content not included)... Normal [facility] CNOVon 11-12-2023 CNOV Office Visit (JACOB) MYRNA SARAVIA ([id number]) 1945 F Date Time Provider Department 11/12/23 1:00 PM APURVA BRUNO During your visit today, we recorded the following information about you: Pulse Blood pressure Weight Height 62/minute 122/49 80.3 kg 1.626 m Apurva Bruno APRN.[facility] [facility] 11/12/2023 2:25 PM Signed [facility] Established Visit Consultation is requested by: No referring provider defined for this encounter. PCP: Evin Garcia ([facility]) [place] [address] CEREBROVASCULAR HISTORY Myrna Saravia is a 77 year old female presenting for hospital discharge follow up. Admitted to [facility] 11/10-11/16/22. From discharge summary: 77-year-old female presented [facility] for acute onset of right upper extremity and right lower extremity weakness. Then was called and she was presented to [facility] where telestroke was called. She had [...] -presents with her daughter Brooklynn -in [place] [facility], moved about a week ago- [facility] in [place] -aphasia and dysarthria improving -she still cannot [...] have be (more content not included)... Normal [facility] Bilirubin Test strip Ql (U)O rdered By: Marcos Brown on 07-02-2023 Bilirubin Ql (U) Negative Negative [facility] Culture, urineOrdered By: Donnie Eugene on 07-02-2023 Bacteria identified Cx Nom (U) Proteus mirabilis [facility] Ketones Test strip Ql (U)Ord ered By: Marcos Brown on 07-02-2023 Ketones Ql (U) Negative Negative [facility] Nitrite Test strip Ql (U)Ord ered By: Marcos Brown on 07-02-2023 Nitrite Ql (U) Negative Negative [facility] Protein Test strip Ql (U)Ord ered By: Marcos Brown on 07-02-2023 Protein Ql (U) Negative Negative [facility] Urine blood detectionOrdered By: Marcos Brown on 07-02-2023 RBC Ql (U) 10 /ul Negative [facility] Urine clarityOrdered By: Daisha Brown on 07-02-2023 Clarity (U) Sl. Cloudy Clear [facility] Urine color determinationOrd ered By: Marcos Brown on 07-02-2023 Color (U) Yellow Yellow [facility] Urine glucose detectionOrder ed By: Marcos Brown on 07-02-2023 Glucose Ql (U) Normal mg/dl Normal [facility] Urine leukocyte esterase det ection by dipstickOrdered By: Marcos Brown on 07-02-2023 Leukocyte esterase Test strip Ql (U) 500 /ul Negative [facility] Urine pHOrdered By: Marcos wild on 07-02-2023 pH (U) 6.0 [pH] 5.0 - 8.0 [facility] Urine specific gravity measu rementOrdered By: Marcos Brown on 07-02-2023 Specific gravity (U) [Rel density] 1.015 1.002-1.030 [facility] Urobilinogen Auto test strip Ql (U)Ordered By: Marcos Brown on 07-02-2023 Urobilinogen Ql (U) Normal mg/dl Normal [facility] Basophil percentageOrdered B y: Marcos Brown on 06-26-2023 Chloride [Moles/Vol] 110 mmol/L 98-107 [facility] Glucose [Mass/Vol] 89 mg/dL 74-106 [facility] Potassium [Moles/Vol] 3.4 mmol/L 3.5-5.1 [facility] Sodium [Moles/Vol] 143 mmol/L 136-145 [facility] WBC (Bld) [#/Vol] 5.7 10*3/uL 4.4-11.0 [facility] Blood erythrocytes count (nu mber/volume)Ordered By: Marcos Brown on 06-26-2023 RBC (Bld) [#/Vol] 3.69 10*6/uL 4.2-5.4 [facility] Blood hemoglobin measurement (mass/volume)Ordered By: Marcos Brown on 06-26-2023 Hemoglobin (Bld) [Mass/Vol] 11.1 g/dL 12.0-15.0 [facility] Blood platelet mean volumeOr dered By: Marcos Brown on 06-26-2023 Platelet mean volume (Bld) [Entitic vol] 9.8 fL 6.2-12.0 [facility] Determination of erythrocyte mean corpuscular volume (MCV)Ordered By: Marcos Brown on 06-26-2023 MCV (RBC) [Entitic vol] 93.2 fL 81-99 [facility] Hematocrit Auto (Bld) [Volum e fraction]Ordered By: Marcos Brown on 06-26-2023 Hematocrit (Bld) [Volume fraction] 34.4 % 37-47 [facility] Laboratory - Chemistry and C hemistry - challengeOrdered By: Marcos Brown on 06-26-2023 CO2 [Moles/Vol] 30.0 mmol/L 21.0-32.0 [facility] Urea nitrogen/Creatinine [Mass ratio] 28.3 mg/mg 10-20 [facility] Laboratory - Hematology and Cell countsOrdered By: Marcos Brown on 06-26-2023 Erythrocyte distribution width (RBC) [Entitic vol] 46.0 fL 35.1-43.9 [facility] Erythrocyte distribution width (RBC) [Ratio] 13.5 % 11.6-14.6 [facility] MCH (RBC) [Entitic mass] 30.1 pg 27.0-32.0 [facility] ([facility] [Mass/Vol]Or dered By: Marcos Brown on 06-26-2023 MCHC (RBC) [Mass/Vol] 32.3 g/dL 32-36 [facility] No Panel InformationOrdered By: Marcos Brown on 06-26-2023 Estimated GFR (MDRD) Amer 64 mL/min >60 [facility] Comment on above: GFR Calc Estimated GFR (MDRD) Non-Af Amer 53 mL/min >60 [facility] Comment on above: Non- GFR Calc Platelets bldOrdered By: Pet er Stephanie on 06-26-2023 Platelets (Bld) [#/Vol] 175 10*3/uL 150-450 [facility] Serum or plasma calcium thanh urement (mass/volume)Ordered By: Marcos Brown on 06-26-2023 Calcium [Mass/Vol] 8.9 mg/dL 8.5-10.1 [facility] Serum or plasma creatinine m easurement (mass/volume)Ordered By: Marcos Brown on 06-26-2023 Creatinine [Mass/Vol] 1.06 mg/dL 0.55-1.02 [facility] Comment on above: The validity of the calculated GFR & GFRAA in patients over 70 years has not been determined. Clinical correlation is essential. Serum or plasma urea nitroge n measurement (mass/volume)Ordered By: Marcos Brown on 06-26-2023 Urea nitrogen [Mass/Vol] 30 mg/dL 7-18 [facility] Thin prep Papanicolaou smear with manual screeningOrdered By: Marcos Brown on 06-26-2023 Thin prep Papanicolaou smear with manual screening 3 5-15 [facility] Basophil percentageOrdered B y: Marcos Brown on 04-16-2023 Basophil percentage 0 SEEN /hpf 0-5 [facility] Bilirubin Test strip Ql (U)O rdered By: Marcos Brown on 04-16-2023 Bilirubin Ql (U) Negative Negative [facility] Culture, urineOrdered By: Donnie Eugene on 04-16-2023 Bacteria identified Cx Nom (U) Culture exhibits no growth. [facility] Ketones Test strip Ql (U)Ord ered By: Marcos Brown on 04-16-2023 Ketones Ql (U) Negative Negative [facility] Mucus LM Ql (Urine sed)Order ed By: Marcos Brown on 04-16-2023 Mucus Ql (Urine sed) 0 SEEN /hpf [facility] Nitrite Test strip Ql (U)Ord ered By: Marcos Brown on 04-16-2023 Nitrite Ql (U) Negative Negative [facility] Protein Test strip Ql (U)Ord ered By: Marcos Brown on 04-16-2023 Protein Ql (U) Negative Negative [facility] Squamous epithelial cells de tection in urine sediment by light microscopyOrdered By: Marcos Brown on 04-16-2023 Epithelial cells.squamous LM Ql (Urine sed) 0 SEEN /hpf 5-10 [facility] Urine blood detectionOrdered By: Marcos Brown on 04-16-2023 RBC Ql (U) Negative Negative [facility] RBC Ql (U) 0 SEEN /hpf 0-5 [facility] Urine clarityOrdered By: Daisha Brown on 04-16-2023 Clarity (U) Clear Clear [facility] Urine color determinationOrd ered By: Marcos Brown on 04-16-2023 Color (U) Yellow Yellow [facility] Urine glucose detectionOrder ed By: Marcos Brown on 04-16-2023 Glucose Ql (U) Normal mg/dl Normal [facility] Urine leukocyte esterase det ection by dipstickOrdered By: Marcos Brown on 04-16-2023 Leukocyte esterase Test strip Ql (U) Negative Negative [facility] Urine pHOrdered By: Marcos wild on 04-16-2023 pH (U) 6.0 [pH] 5.0 - 8.0 [facility] Urine sediment bacteria coun t by microscopy (number/high power field)Ordered By: Marcos Brown on 04-16-2023 Bacteria LM.HPF (Urine sed) [#/Area] 0 /[HPF] None Seen [facility] Urine specific gravity measu rementOrdered By: Marcos Brown on 04-16-2023 Specific gravity (U) [Rel density] 1.010 1.002-1.030 [facility] Urobilinogen Auto test strip Ql (U)Ordered By: Marcos Brown on 04-16-2023 Urobilinogen Ql (U) Normal mg/dl Normal [facility] CNOVon 04-14-2023 CNOV Office Visit (UROLSF) MYRNA SARAVIA ([id number]) 1945 F Date Time Provider Department 04/14/23 2:45 PM LASHANDA ALBRECHT [facility] During your visit today, we recorded the following information about you: Temperature Pulse Blood pressure 97.9 degrees 66/minute 112/60 Lashanda Albrecht APRN.[employer] 04/14/2023 3:56 PM Signed ESTABLISHED PATIENT OFFICE VISIT HISTORY OF PRESENT ILLNESS Myrna Saravia is a 78 year old female who presents today in f/u. Patient with a h/o urinary retention, UTI, CVA. Patient presents today in f/u. Patient now at [facility]. Recent UTI on 04/02/23. Finished a [...] [facility] Mostly has incontinence into her depends. [...] (no units) Date Value 12/03/2022 Negative Specific [place], [facility] (no units) Date Value 12/03/2022 >=1.030 [...] at bedtime. cefdinir (OMNICEF) 300 mg capsule Zeus 10 billion cell -200 mg capsule clopidogrel (PLAVIX) 75 mg tablet 1 tablet by ORAL/FEEDING TUBE route once daily for 88 doses. lactobacillus rhamnosus (Nebula) 10 billion cell capsule Take 1 capsule [...] than half of todays over 40 minute [id number] office visit was spent in counselling/coordina tion of care Lashanda Albrecht APRN.JANICE 04/14/2023 3:33 PM Signed Please recheck a [...] call urology with any questions. Lashanda Albrecht APRN.[employer] [phone] Referring Provider: SELF [[id number]] Allergies As of Date: 04/14/2023 Noted Allergy (more content not included)... Normal [facility] Culture, urineOrdered By: Donnie Eugene on 04-01-2023 Bacteria identified Cx Nom (U) Escherichia coli [facility] Bilirubin Test strip Ql (U)O rdered By: Marcos Brown on 03-31-2023 Bilirubin Ql (U) Negative Negative [facility] Culture, urineOrdered By: Donnie Eugene on 03-31-2023 Bacteria identified Cx Nom (U) Escherichia coli [facility] Ketones Test strip Ql (U)Ord ered By: Marcos Brown on 03-31-2023 Ketones Ql (U) Negative Negative [facility] Nitrite Test strip Ql (U)Ord ered By: Marcos Brown on 03-31-2023 Nitrite Ql (U) Positive Negative [facility] Protein Test strip Ql (U)Ord ered By: Marcos Brown on 03-31-2023 Protein Ql (U) Negative Negative [facility] Urine blood detectionOrdered By: Marcos Brown on 03-31-2023 RBC Ql (U) Negative Negative [facility] Urine clarityOrdered By: Daisha Brown on 03-31-2023 Clarity (U) Clear Clear [facility] Urine color determinationOrd ered By: Marcos Brown on 03-31-2023 Color (U) Yellow Yellow [facility] Urine glucose detectionOrder ed By: Marcos Brown on 03-31-2023 Glucose Ql (U) Normal mg/dl Normal [facility] Urine leukocyte esterase det ection by dipstickOrdered By: Marcos Brown on 03-31-2023 Leukocyte esterase Test strip Ql (U) 100 /ul Negative [facility] Urine pHOrdered By: Marcos wild on 03-31-2023 pH (U) 5.0 [pH] 5.0 - 8.0 [facility] Urine specific gravity measu rementOrdered By: Marcos Brown on 03-31-2023 Specific gravity (U) [Rel density] 1.020 1.002-1.030 [facility] Urobilinogen Auto test strip Ql (U)Ordered By: Marcos Brown on 03-31-2023 Urobilinogen Ql (U) Normal mg/dl Normal [facility] Basophil percentageOrdered B y: Marcos Brown on 03-27-2023 Chloride [Moles/Vol] 110 mmol/L 98-107 [facility] Glucose [Mass/Vol] 88 mg/dL 74-106 [facility] Potassium [Moles/Vol] 3.4 mmol/L 3.5-5.1 [facility] Sodium [Moles/Vol] 143 mmol/L 136-145 [facility] WBC (Bld) [#/Vol] 4.9 10*3/uL 4.4-11.0 [facility] Blood erythrocytes count (nu mber/volume)Ordered By: Marcos Brown on 03-27-2023 RBC (Bld) [#/Vol] 3.66 10*6/uL 4.2-5.4 [facility] Blood hemoglobin measurement (mass/volume)Ordered By: Marcos Brown on 03-27-2023 Hemoglobin (Bld) [Mass/Vol] 11.4 g/dL 12.0-15.0 [facility] Blood platelet mean volumeOr dered By: Marcos Brown on 03-27-2023 Platelet mean volume (Bld) [Entitic vol] 9.7 fL 6.2-12.0 [facility] Determination of erythrocyte mean corpuscular volume (MCV)Ordered By: Marcos Brown on 03-27-2023 MCV (RBC) [Entitic vol] 96.7 fL 81-99 [facility] Hematocrit Auto (Bld) [Volum e fraction]Ordered By: Marcos Brown on 03-27-2023 Hematocrit (Bld) [Volume fraction] 35.4 % 37-47 [facility] Laboratory - Chemistry and C hemistry - challengeOrdered By: Marcos Brown on 03-27-2023 CO2 [Moles/Vol] 32.0 mmol/L 21.0-32.0 [facility] Urea nitrogen/Creatinine [Mass ratio] 21.8 mg/mg 10-20 [facility] Laboratory - Hematology and Cell countsOrdered By: Marcos Brown on 03-27-2023 Erythrocyte distribution width (RBC) [Entitic vol] 49.5 fL 35.1-43.9 [facility] Erythrocyte distribution width (RBC) [Ratio] 14.0 % 11.6-14.6 [facility] MCH (RBC) [Entitic mass] 31.1 pg 27.0-32.0 [facility] MCHC Auto (RBC) [Mass/Vol]Or dered By: Marcos Brown on 03-27-2023 MCHC (RBC) [Mass/Vol] 32.2 g/dL 32-36 [facility] No Panel InformationOrdered By: Marcos Brown on 03-27-2023 Estimated GFR (MDRD) Amer 68 mL/min >60 [facility] Comment on above: GFR Calc Estimated GFR (MDRD) Non-Af Amer 56 mL/min >60 [facility] Comment on above: Non- GFR Calc Platelets bldOrdered By: Pet er Екатеринаsaros on 03-27-2023 Platelets (Bld) [#/Vol] 162 10*3/uL 150-450 [facility] Serum or plasma calcium thanh urement (mass/volume)Ordered By: Marcos Brown on 03-27-2023 Calcium [Mass/Vol] 8.9 mg/dL 8.5-10.1 [facility] Serum or plasma creatinine m easurement (mass/volume)Ordered By: Marcos Brown on 03-27-2023 Creatinine [Mass/Vol] 1.01 mg/dL 0.55-1.02 [facility] Comment on above: The validity of the calculated GFR & GFRAA in patients over 70 years has not been determined. Clinical correlation is essential. Serum or plasma urea nitroge n measurement (mass/volume)Ordered By: Marcos Brown on 03-27-2023 Urea nitrogen [Mass/Vol] 22 mg/dL 7-18 [facility] Thin prep Papanicolaou smear with manual screeningOrdered By: Marcos Brown on 03-27-2023 Thin prep Papanicolaou smear with manual screening 1 5-15 [facility] Basophil percentageOrdered B y: Marcos Brown on 03-20-2023 Chloride [Moles/Vol] 110 mmol/L 98-107 [facility] Glucose [Mass/Vol] 83 mg/dL 74-106 [facility] Potassium [Moles/Vol] 3.4 mmol/L 3.5-5.1 [facility] Sodium [Moles/Vol] 142 mmol/L 136-145 [facility] WBC (Bld) [#/Vol] 4.9 10*3/uL 4.4-11.0 [facility] Blood erythrocytes count (nu mber/volume)Ordered By: Marcos Brown on 03-20-2023 RBC (Bld) [#/Vol] 3.63 10*6/uL 4.2-5.4 [facility] Blood hemoglobin measurement (mass/volume)Ordered By: Marcos Brown on 03-20-2023 Hemoglobin (Bld) [Mass/Vol] 11.2 g/dL 12.0-15.0 [facility] Blood platelet mean volumeOr dered By: Marcos Brown on 03-20-2023 Platelet mean volume (Bld) [Entitic vol] 9.5 fL 6.2-12.0 [facility] Determination of erythrocyte mean corpuscular volume (MCV)Ordered By: Marcos Brown on 03-20-2023 MCV (RBC) [Entitic vol] 95.9 fL 81-99 [facility] Hematocrit Auto (Bld) [Volum e fraction]Ordered By: Marcos Brown on 03-20-2023 Hematocrit (Bld) [Volume fraction] 34.8 % 37-47 [facility] Laboratory - Chemistry and C hemistry - challengeOrdered By: Marcos Brown on 03-20-2023 CO2 [Moles/Vol] 30.0 mmol/L 21.0-32.0 [facility] Urea nitrogen/Creatinine [Mass ratio] 24.5 mg/mg 10-20 [facility] Laboratory - Hematology and Cell countsOrdered By: Marcos Brown on 03-20-2023 Erythrocyte distribution width (RBC) [Entitic vol] 49.2 fL 35.1-43.9 [facility] Erythrocyte distribution width (RBC) [Ratio] 13.9 % 11.6-14.6 [facility] MCH (RBC) [Entitic mass] 30.9 pg 27.0-32.0 [facility] MCHC Auto (RBC) [Mass/Vol]Or dered By: Marcos Brown on 03-20-2023 MCHC (RBC) [Mass/Vol] 32.2 g/dL 32-36 [facility] No Panel InformationOrdered By: Marcos Brown on 03-20-2023 Estimated GFR (MDRD) Amer 61 mL/min >60 [facility] Comment on above: GFR Calc Estimated GFR (MDRD) Non-Af Amer 51 mL/min >60 [facility] Comment on above: Non- GFR Calc Platelets bldOrdered By: Daisha Brown on 03-20-2023 Platelets (Bld) [#/Vol] 157 10*3/uL 150-450 [facility] Serum or plasma calcium thanh urement (mass/volume)Ordered By: Marcos Brown on 03-20-2023 Calcium [Mass/Vol] 9.0 mg/dL 8.5-10.1 [facility] Serum or plasma creatinine m easurement (mass/volume)Ordered By: Marcos Brown on 03-20-2023 Creatinine [Mass/Vol] 1.10 mg/dL 0.55-1.02 [facility] Comment on above: The validity of the calculated GFR & GFRAA in patients over 70 years has not been determined. Clinical correlation is essential. Serum or plasma urea nitroge n measurement (mass/volume)Ordered By: Marcos Brown on 03-20-2023 Urea nitrogen [Mass/Vol] 27 mg/dL 7-18 [facility] Thin prep Papanicolaou smear with manual screeningOrdered By: Marcos Brown on 03-20-2023 Thin prep Papanicolaou smear with manual screening 2 5-15 [facility] Basophil percentageOrdered B y: Marcos Brown on 03-13-2023 Chloride [Moles/Vol] 109 mmol/L 98-107 [facility] Glucose [Mass/Vol] 96 mg/dL 74-106 [facility] Potassium [Moles/Vol] 3.3 mmol/L 3.5-5.1 [facility] Sodium [Moles/Vol] 143 mmol/L 136-145 [facility] WBC (Bld) [#/Vol] 5.1 10*3/uL 4.4-11.0 [facility] Blood erythrocytes count (nu mber/volume)Ordered By: Marcos Brown on 03-13-2023 RBC (Bld) [#/Vol] 3.73 10*6/uL 4.2-5.4 [facility] Blood hemoglobin measurement (mass/volume)Ordered By: Marcos Brown on 03-13-2023 Hemoglobin (Bld) [Mass/Vol] 11.3 g/dL 12.0-15.0 [facility] Blood platelet mean volumeOr dered By: Marcos Brown on 03-13-2023 Platelet mean volume (Bld) [Entitic vol] 9.8 fL 6.2-12.0 [facility] Determination of erythrocyte mean corpuscular volume (MCV)Ordered By: Marcos Brown on 03-13-2023 MCV (RBC) [Entitic vol] 95.4 fL 81-99 [facility] Hematocrit Auto (Bld) [Volum e fraction]Ordered By: Marcos Brown on 03-13-2023 Hematocrit (Bld) [Volume fraction] 35.6 % 37-47 [facility] Laboratory - Chemistry and C hemistry - challengeOrdered By: Marcos Brown on 03-13-2023 CO2 [Moles/Vol] 30.0 mmol/L 21.0-32.0 [facility] Urea nitrogen/Creatinine [Mass ratio] 31.3 mg/mg 10-20 [facility] Laboratory - Hematology and Cell countsOrdered By: Marcos Brown on 03-13-2023 Erythrocyte distribution width (RBC) [Entitic vol] 49.2 fL 35.1-43.9 [facility] Erythrocyte distribution width (RBC) [Ratio] 14.0 % 11.6-14.6 [facility] MCH (RBC) [Entitic mass] 30.3 pg 27.0-32.0 [facility] MCHC Auto (RBC) [Mass/Vol]Or dered By: Marcos Brown on 03-13-2023 MCHC (RBC) [Mass/Vol] 31.7 g/dL 32-36 [facility] No Panel InformationOrdered By: Marcos Brown on 03-13-2023 Estimated GFR (MDRD) Amer 58 mL/min >60 [facility] Comment on above: GFR Calc Estimated GFR (MDRD) Non-Af Amer 48 mL/min >60 [facility] Comment on above: Non- GFR Calc Platelets bldOrdered By: Daisha Brown on 03-13-2023 Platelets (Bld) [#/Vol] 151 10*3/uL 150-450 [facility] Serum or plasma calcium thanh urement (mass/volume)Ordered By: Marcos Brown on 03-13-2023 Calcium [Mass/Vol] 8.9 mg/dL 8.5-10.1 [facility] Serum or plasma creatinine m easurement (mass/volume)Ordered By: Marcos Brown on 03-13-2023 Creatinine [Mass/Vol] 1.15 mg/dL 0.55-1.02 [facility] Comment on above: The validity of the calculated GFR & GFRAA in patients over 70 years has not been determined. Clinical correlation is essential. Serum or plasma urea nitroge n measurement (mass/volume)Ordered By: Marcos Brown on 03-13-2023 Urea nitrogen [Mass/Vol] 36 mg/dL 7-18 [facility] Thin prep Papanicolaou smear with manual screeningOrdered By: Marcos Brown on 03-13-2023 Thin prep Papanicolaou smear with manual screening 4 5-15 [facility] Basophil percentageOrdered B y: Marcos Brown on 02-10-2023 Bilirubin [Mass/Vol] 0.50 mg/dL 0.20-1.00 [facility] Comment on above: For patients on eltr ombopag therapy, use of Dimension [place] TBIL is not recommended. Chloride [Moles/Vol] 108 mmol/L 98-107 [facility] Cholesterol [Mass/Vol] 94 mg/dL <200 [facility] Comment on above: <200 mg/dL Desirable 200-240 mg/dL Borderline >240 mg/dL High Risk Glucose [Mass/Vol] 94 mg/dL 74-106 [facility] Potassium [Moles/Vol] 3.6 mmol/L 3.5-5.1 [facility] Protein [Mass/Vol] 5.4 g/dL 6.4-8.2 [facility] Sodium [Moles/Vol] 142 mmol/L 136-145 [facility] Triglyceride [Mass/Vol] 83 mg/dL <199 [facility] Comment on above: The drugs N-Acetylcy steine and Metamizole may falsely depress this assay.Serum Triglycerides Reference Interval Normal <150 mg/dL Borderline high 150 - 199 mg/dL High 200 - 499 mg/dL Very High > or = 500 mg/dL WBC (Bld) [#/Vol] 5.2 10*3/uL 4.4-11.0 [facility] Blood erythrocytes count (nu mber/volume)Ordered By: Marcos Brown on 02-10-2023 RBC (Bld) [#/Vol] 3.44 10*6/uL 4.2-5.4 [facility] Blood hemoglobin measurement (mass/volume)Ordered By: Marcos Brown on 02-10-2023 Hemoglobin (Bld) [Mass/Vol] 10.3 g/dL 12.0-15.0 [facility] Blood platelet mean volumeOr dered By: Marcos Brown on 02-10-2023 Platelet mean volume (Bld) [Entitic vol] 9.8 fL 6.2-12.0 [facility] Determination of erythrocyte mean corpuscular volume (MCV)Ordered By: Marcos Brown on 02-10-2023 MCV (RBC) [Entitic vol] 95.9 fL 81-99 [facility] Hematocrit Auto (Bld) [Volum e fraction]Ordered By: Marcos Brown on 02-10-2023 Hematocrit (Bld) [Volume fraction] 33.0 % 37-47 [facility] Laboratory - Chemistry and C hemistry - challengeOrdered By: Marcos Brown on 02-10-2023 ALP [Catalytic activity/Vol] 53 U/L 45-117 [facility] ALT [Catalytic activity/Vol] 14 U/L 13-56 [facility] CO2 [Moles/Vol] 31.0 mmol/L 21.0-32.0 [facility] Globulin (S) [Mass/Vol] 2.9 g/dL 2.2-4.2 [facility] Urea nitrogen/Creatinine [Mass ratio] 26.0 mg/mg 10-20 [facility] Laboratory - Hematology and Cell countsOrdered By: Marcos Brown on 02-10-2023 Erythrocyte distribution width (RBC) [Entitic vol] 49.5 fL 35.1-43.9 [facility] Erythrocyte distribution width (RBC) [Ratio] 14.1 % 11.6-14.6 [facility] MCH (RBC) [Entitic mass] 29.9 pg 27.0-32.0 [facility] MCHC Auto (RBC) [Mass/Vol]Or dered By: Marcos Brown on 02-10-2023 MCHC (RBC) [Mass/Vol] 31.2 g/dL 32-36 [facility] No Panel InformationOrdered By: Marcos Brown on 02-10-2023 Estimated GFR (MDRD) Amer 54 mL/min >60 [facility] Comment on above: GFR Calc Estimated GFR (MDRD) Non-Af Amer 45 mL/min >60 [facility] Comment on above: Non- GFR Calc Thyroid Stimulating Hormone (TSH) 1.65 uIU/mL 0.358-3.74 [facility] Platelets bldOrdered By: Daisha Brown on 02-10-2023 Platelets (Bld) [#/Vol] 185 10*3/uL 150-450 [facility] Serum or plasma albumin thanh urement (mass/volume)Ordered By: Marcos Brown on 02-10-2023 Albumin [Mass/Vol] 2.5 g/dL 3.2-5.0 [facility] Serum or plasma albumin/glob ulin mass ratioOrdered By: Marcos Brown on 02-10-2023 Albumin/Globulin [Mass ratio] 0.9 {ratio} 0.9-2.4 [facility] Serum or plasma calcium thanh urement (mass/volume)Ordered By: Marcos Brown on 02-10-2023 Calcium [Mass/Vol] 8.7 mg/dL 8.5-10.1 [facility] Serum or plasma cholesterol in HDL measurement (mass/volume)Ordered By: Marcos Brown on 02-10-2023 Cholesterol in HDL [Mass/Vol] 39 mg/dL >40 [facility] Comment on above: The drugs N-Acetylcy steine and Metamizole may falsely depress this assay. Reference Range HDL <40 mg/dL Low HDL Cholesterol HDL >or= 60 mg/dL High HDL Cholesterol Serum or plasma cholesterol in VLDL measurement (mass/volume)Ordered By: Marcos Brown on 02-10-2023 Cholesterol in VLDL [Mass/Vol] 17 mg/dL 5-40 [facility] Serum or plasma creatinine m easurement (mass/volume)Ordered By: Marcos Brown on 02-10-2023 Creatinine [Mass/Vol] 1.23 mg/dL 0.55-1.02 [facility] Comment on above: The validity of the calculated GFR & GFRAA in patients over 70 years has not been determined. Clinical correlation is essential. Serum or plasma low density lipoprotein (LDL) cholesterol measurement (mass/volume)Ordered By: Marcos Brown on 02-10-2023 Cholesterol in LDL [Mass/Vol] 38 mg/dL 0-130 [facility] Serum or plasma urea nitroge n measurement (mass/volume)Ordered By: Marcos Brown on 02-10-2023 Urea nitrogen [Mass/Vol] 32 mg/dL 7-18 [facility] Thin prep Papanicolaou smear with manual screeningOrdered By: Marcos Brown on 02-10-2023 Thin prep Papanicolaou smear with manual screening 11 U/L 15-37 [facility] Thin prep Papanicolaou smear with manual screening 3 5-15 [facility] CNOVon 01-31-2023 CNOV Office Visit (UROLSF) MYRNA SARAVIA ([id number]) 1945 F Date Time Provider Department 01/31/23 1:15 PM LASHANDA ALBRECHT [facility] During your visit today, we recorded the following information about you: Pulse Blood pressure Weight Height 77/minute 114/56 75.3 kg 1.651 m Lashanda Albrecht APRN.[employer] 01/31/2023 2:16 PM Signed ESTABLISHED PATIENT OFFICE [...] (no units) Date Value 12/03/2022 Negative Specific [place], Ur (no units) Date Value 12/03/2022 >=1.030 [...] mL syrup chlorthalidone (HYGROTON) 25 mg tablet [facility] 10 billion cell -200 mg capsule [...] - ICD (more content not included)... Normal [facility] CNOVon 01-10-2023 CNOV Office Visit (UROLSF) MYRNA SARAVIA ([id number]) 1945 F Date Time Provider Department 01/10/23 [...] stroke. She is currently in rehab at [place]. She does not want to have a [...] (no units) Date Value 12/03/2022 Negative Specific [place], Ur (no units) Date Value 12/03/2022 >=1.030 Hemoglobin/Blood,Ur (no units) Date Value 12/03/2022 Negative pH, Urine (no units) Date Value 12/03/2022 6.0 Protein, Urine (no units) Date Value 12/03/2022 Negative Urobilinogen (no units) Date Value 12/03/2022 0.2 EU/dL Nitrites (no units) Date Value 12/03/2022 Negative Leuk Esterase (no units) Date Value 12/03/2022 Negative MEDICATIONS: chlorthalidone (HYGROTON) 25 mg tablet [facility] 10 billion cell -200 mg capsule acetaminophen [...] not taking: Reported on 01/10/2023) lactobacillus rhamnosus (Nebula) 10 billion cell capsule Take 1 capsule [...] MUSCULOSKELETAL: Negati (more content not included)... Normal [facility] CNOVon 12-20-2022 CNOV Office Visit (UROLSF) MYRNA SARAVIA ([id number]) 1945 F Date Time Provider Department 12/20/22 10:15 AM LASHANDA ALBRECHT During your visit today, we recorded the following information about you: Pulse Blood pressure Weight Height 63/minute 121/74 75.3 kg 1.651 m Lashanda Albrecht APRN.CNP 01/10/2023 10:21 AM Addendum NEW PATIENT HISTORY [...] stroke. She is currently in rehab at [place]. She does not want to have a [...] (no units) Date Value 12/03/2022 Negative Specific [place], Ur (no units) Date Value 12/03/2022 >=1.030 [...] Back: Normal. ASSESSMENT/PLAN: 1. 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 R (more content not included)... Normal [facility] Basic metabolic 2000 panelon 12-09-2022 Anion gap [Moles/Vol] 10 mmol/L 9 - 18 mmol/L [facility] Calcium [Mass/Vol] 9.4 mg/dL 8.5 - 10. 2 mg/dL [facility] Chloride [Moles/Vol] 108 mmol/L High 97 - 10 5 mmol/L [facility] CO2 [Moles/Vol] 23 mmol/L 22 - 30 mmol/L [facility] Creatinine [Mass/Vol] 0.99 mg/dL High 0.58 - 0.96 mg/dL [facility] Estimated Glomerular Filtration Rate 58 mL/min/1.73m Low >=60 mL/min/1.73m [facility] Glucose [Mass/Vol] 83 mg/dL 74 - 99 mg/dL [facility] Potassium [Moles/Vol] 4.2 mmol/L 3.7 - 5.1 mmol/L [facility] Sodium [Moles/Vol] 141 mmol/L 136 - 144 mmol/L [facility] Urea nitrogen [Mass/Vol] 40 mg/dL High 7 - 21 mg/d L [facility] Anion gap [Moles/Vol] 10 mmol/L Normal 9-18 [facility] Comment on above: Order Comment: Speci men Type: BLOOD SPECIMENOrdering Facility: [facility] Address: [address] [place] [address] Performed By: #### 2 4321-2 ####BERRIOS LABORATORYCLIA [id number] [place] [address] [place] Calcium [Mass/Vol] 9.4 mg/dL Normal 8.5-10.2 [facility] Comment on above: Order Comment: Speci men Type: BLOOD SPECIMENOrdering Facility: [facility] Address: [address] [place] [address] Performed By: #### 2 4321-2 ####BERRIOS LABORATORYCLIA [id number] [place] [address] [place] Chloride [Moles/Vol] 108 mmol/L High 97-105 [facility] Comment on above: Order Comment: Speci men Type: BLOOD SPECIMENOrdering Facility: [facility] Address: [address] [place] [address] Performed By: #### 2 4321-2 ####BERRIOS LABORATORYCLIA [id number] [place] [address] [place] CO2 [Moles/Vol] 23 mmol/L Normal 22-[address] [facility] Comment on above: Order Comment: Speci men Type: BLOOD SPECIMENOrdering Facility: [facility] Address: [address] [place] [address] Performed By: #### 2 4321-2 ####BERIROS LABORATORYCLIA [id number] [address] Creatinine [Mass/Vol] 0.99 mg/dL High 0.58-0.96 [facility] Comment on above: Order Comment: Speci men Type: BLOOD SPECIMENOrdering Facility: [facility] Address: [address] [place] [address] Performed By: #### 2 4321-2 ####BERRIOS LABORATORYCLIA [id number] [address] ESTIMATED GLOMERULAR FILTRATION RATE 58 mL/min/1.73m??? Low >=[address] [facility] Comment on above: Order Comment: Speci men Type: BLOOD SPECIMENOrdering Facility: [facility] Address: [address] [place] [address] Result Comment: Caroline mated Glomerular Filtration Rate [...] Performed By: #### 2 4321-2 ####BERRIOS LABORATORYCLIA [id number] [address] Glucose [Mass/Vol] 83 mg/dL Normal 74-99 [facility] Comment on above: Order Comment: Speci men Type: BLOOD SPECIMENOrdering Facility: [facility] Address: [address] [place] [address] Result Comment: The [place] Diabetes [employer] (ADA) provides guidance for cutoff [...] Standards of Medical Care in Diabetes 2016, [employer]. Diabetes Care. 2016.39(Suppl 1). Performed By: #### 2 4321-2 ####BERRIOS LABORATORYCLIA [id number] [address] Potassium [Moles/Vol] 4.2 mmol/L Normal 3.7-5.1 [facility] Comment on above: Order Comment: Speci men Type: BLOOD SPECIMENOrdering Facility: [facility] Address: [address] [place] [address] Performed By: #### 2 4321-2 ####BERRIOS LABORATORYCLIA [id number] [address] [place] [facility] Sodium [Moles/Vol] 141 mmol/L Normal 136-144 [facility] Comment on above: Order Comment: Speci stef Type: BLOOD SPECIMENOrdering Facility: [facility] Address: [address] [place] [address] Performed By: #### 2 4321-2 ####BERRIOS LABORATORYCLIA [id number] [address] [place] [facility] Urea nitrogen [Mass/Vol] 40 mg/dL High 7-[address] [facility] Comment on above: Order Comment: Speci men Type: BLOOD SPECIMENOrdering Facility: [facility] Address: [address] [place] [address] Performed By: #### 2 4321-2 ####BERRIOS LABORATORYCLIA [id number] [place] [address] [place] CBC W Auto Differential pane l (Bld)on 12-09-2022 Basophils (Bld) [#/Vol] 0.04 10*3/uL <0.11 k/uL [facility] Basophils/100 WBC (Bld) 0.8 % [facility] Differential cell count method Nom (Bld) Auto [facility] Eosinophils (Bld) [#/Vol] 0.34 10*3/uL <0.46 k/uL [facility] Eosinophils/100 WBC (Bld) 6.6 % [facility] Erythrocyte distribution width (RBC) [Ratio] 14.7 % 11.5 - 15.0 % [facility] Hematocrit (Bld) [Volume fraction] 34.2 % Low 36.0 - 46.0 % [facility] Hemoglobin (Bld) [Mass/Vol] 10.8 g/dL Low 11.5 - 15.5 g/dL [facility] Immature granulocytes (Bld) [#/Vol] 0.03 10*3/uL <0.10 k/uL [facility] Immature granulocytes/100 WBC (Bld) 0.6 % [facility] Lymphocytes (Bld) [#/Vol] 1.60 10*3/uL 1.00 - 4.00 k/uL [facility] Lymphocytes/100 WBC (Bld) 31.2 % [facility] MCH (RBC) [Entitic mass] 30.8 pg 26. 0 - 34.0 pg [facility] MCHC (RBC) [Mass/Vol] 31.6 g/dL 30.5 - 36.0 g/dL [facility] MCV (RBC) [Entitic vol] 97.4 fL 80.0 - 100.0 fL [facility] Monocytes (Bld) [#/Vol] 0.61 10*3/uL <0.87 k/uL [facility] Monocytes/100 WBC (Bld) 11.9 % [facility] Neutrophils (Bld) [#/Vol] 2.51 10*3/uL 1.45 - 7.50 k/uL [facility] Neutrophils/100 WBC (Bld) 48.9 % [facility] Nucleated RBC (Bld) [#/Vol] <0.01 k/uL [facility] Nucleated RBC/100 WBC (Bld) [Ratio] 0.0 /100 WBC [facility] Platelet mean volume (Bld) [Entitic vol] 10.4 fL 9.0 - 12.7 fL [facility] Platelets (Bld) [#/Vol] 170 10*3/uL 150 - 400 k/uL [facility] RBC (Bld) [#/Vol] 3.51 10*6/uL Low 3.90 - 5.2 0 m/uL [facility] WBC (Bld) [#/Vol] 5.13 10*3/uL 3.70 - 11. 00 k/uL [facility] Basophils (Bld) [#/Vol] 0.04 10*3/uL Normal <0.[address] [facility] Comment on above: Order Comment: Speci men Type: BLOOD SPECIMENOrdering Facility: [facility] Address: [address] [place] [address] Performed By: #### 5 7021-8 ####BERRIOS LABORATORYCLIA [id number] [place] [address] [place] Basophils/100 WBC (Bld) 0.8 % Normal [facility] Comment on above: Order Comment: Speci men Type: BLOOD SPECIMENOrdering Facility: [facility] Address: [address] [place] [address] Performed By: #### 5 7021-8 ####BERRIOS LABORATORYCLIA [id number] [place] [address] [place] Differential cell count method Nom (Bld) Auto Normal [facility] Comment on above: Order Comment: Speci men Type: BLOOD SPECIMENOrdering Facility: [facility] Address: [address] [place] [address] Performed By: #### 5 7021-8 ####BERRIOS LABORATORYCLIA [id number] [place] [address] [place] Eosinophils (Bld) [#/Vol] 0.34 10*3/uL Normal <0.[address] [facility] Comment on above: Order Comment: Speci men Type: BLOOD SPECIMENOrdering Facility: [facility] Address: [address] [place] [address] Performed By: #### 5 7021-8 ####BERRIOS LABORATORYCLIA [id number] [place] [address] [place] Eosinophils/100 WBC (Bld) 6.6 % Normal [facility] Comment on above: Order Comment: Speci men Type: BLOOD SPECIMENOrdering Facility: [facility] Address: [address] [place] [address] Performed By: #### 5 7021-8 ####BERRIOS LABORATORYCLIA [id number] [place] [address] [place] Erythrocyte distribution width (RBC) [Ratio] 14.7 % Normal 11.5-15.[address] [facility] Comment on above: Order Comment: Speci men Type: BLOOD SPECIMENOrdering Facility: [facility] Address: [address] [place] [address] Performed By: #### 5 7021-8 ####BERRIOS LABORATORYCLIA [id number] [place] [address] [place] Hematocrit (Bld) [Volume fraction] 34.2 % Low 36.0-46.[address] [facility] Comment on above: Order Comment: Speci men Type: BLOOD SPECIMENOrdering Facility: [facility] Address: [address] [place] [address] Performed By: #### 5 7021-8 ####BERRIOS LABORATORYCLIA [id number] [place] [address] [place] Hemoglobin (Bld) [Mass/Vol] 10.8 g/dL Low 11.5-15.[address] [facility] Comment on above: Order Comment: Speci men Type: BLOOD SPECIMENOrdering Facility: [facility] Address: [address] [place] [address] Performed By: #### 5 7021-8 ####BERRIOS LABORATORYCLIA [id number] [place] [address] [place] Immature granulocytes (Bld) [#/Vol] 0.03 10*3/uL Normal <0.[address] [facility] Comment on above: Order Comment: Speci men Type: BLOOD SPECIMENOrdering Facility: [facility] Address: [address] [place] [address] Performed By: #### 5 7021-8 ####BERRIOS LABORATORYCLIA [id number] [place] [address] [place] Immature granulocytes/100 WBC (Bld) 0.6 % Normal [facility] Comment on above: Order Comment: Speci men Type: BLOOD SPECIMENOrdering Facility: [facility] Address: [address] [place] [address] Performed By: #### 5 7021-8 ####BERRIOS LABORATORYCLIA [id number] [address] [place] Lymphocytes (Bld) [#/Vol] 1.60 10*3/uL Normal 1.00-4.[address] [facility] Comment on above: Order Comment: Speci men Type: BLOOD SPECIMENOrdering Facility: [facility] Address: [address] [place] [address] Performed By: #### 5 7021-8 ####BERRIOS LABORATORYCLIA [id number] [address] Lymphocytes/100 WBC (Bld) 31.2 % Normal [facility] Comment on above: Order Comment: Speci men Type: BLOOD SPECIMENOrdering Facility: [facility] Address: [address] [place] [address] Performed By: #### 5 7021-8 ####BERRIOS LABORATORYCLIA [id number] [place] [address] [place] MCH (RBC) [Entitic mass] 30.8 pg Normal 26.0-34.[address] [facility] Comment on above: Order Comment: Speci men Type: BLOOD SPECIMENOrdering Facility: [facility] Address: [address] [place] [address] Performed By: #### 5 7021-8 ####BERRIOS LABORATORYCLIA [id number] [address] [place] MCHC (RBC) [Mass/Vol] 31.6 g/dL Normal 30.5-36.0 [facility] Comment on above: Order Comment: Speci men Type: BLOOD SPECIMENOrdering Facility: [facility] Address: [address] [place] [address] Performed By: #### 5 7021-8 ####BERRIOS LABORATORYCLIA [id number] [place] [address] [place] MCV (RBC) [Entitic vol] 97.4 fL Normal 80.0-100.0 [facility] Comment on above: Order Comment: Speci men Type: BLOOD SPECIMENOrdering Facility: [facility] Address: [address] [place] [address] Performed By: #### 5 7021-8 ####BERRIOS LABORATORYCLIA [id number] [place] [address] [place] Monocytes (Bld) [#/Vol] 0.61 10*3/uL Normal <0.[address] [facility] Comment on above: Order Comment: Speci men Type: BLOOD SPECIMENOrdering Facility: [facility] Address: [address] [place] [address] Performed By: #### 5 7021-8 ####BERRIOS LABORATORYCLIA [id number] [address] [place] Monocytes/100 WBC (Bld) 11.9 % Normal [facility] Comment on above: Order Comment: Speci men Type: BLOOD SPECIMENOrdering Facility: [facility] Address: [address] [place] [address] Performed By: #### 5 7021-8 ####BERRIOS LABORATORYCLIA [id number] [place] [address] [place] Neutrophils (Bld) [#/Vol] 2.51 10*3/uL Normal 1.45-7.[address] [facility] Comment on above: Order Comment: Speci men Type: BLOOD SPECIMENOrdering Facility: [facility] Address: [address] [place] [address] Performed By: #### 5 7021-8 ####BERRIOS LABORATORYCLIA [id number] [place] [address] [place] Neutrophils/100 WBC (Bld) 48.9 % Normal [facility] Comment on above: Order Comment: Speci men Type: BLOOD SPECIMENOrdering Facility: [facility] Address: [address] [place] [address] Performed By: #### 5 7021-8 ####BERRIOS LABORATORYCLIA [id number] [place] [address] [place] Nucleated RBC (Bld) [#/Vol] 10*3/uL Normal <0.[address] [facility] Comment on above: Order Comment: Speci men Type: BLOOD SPECIMENOrdering Facility: [facility] Address: [address] [place] [address] Performed By: #### 5 7021-8 ####BERRIOS LABORATORYCLIA [id number] [place] [address] [place] Nucleated RBC/100 WBC (Bld) [Ratio] 0.0 /100 WBC Normal [facility] Comment on above: Order Comment: Speci men Type: BLOOD SPECIMENOrdering Facility: [facility] Address: [address] [place] [address] Performed By: #### 5 7021-8 ####BERRIOS LABORATORYCLIA [id number] [place] [address] [place] Platelet mean volume (Bld) [Entitic vol] 10.4 fL Normal 9.0-12.[address] [facility] Comment on above: Order Comment: Speci men Type: BLOOD SPECIMENOrdering Facility: [facility] Address: [address] [place] [address] Performed By: #### 5 7021-8 ####BERRIOS LABORATORYCLIA [id number] [place] [address] [place] Platelets (Bld) [#/Vol] 170 10*3/uL Normal 150-[address] [facility] Comment on above: Order Comment: Speci men Type: BLOOD SPECIMENOrdering Facility: [facility] Address: [address] [place] [address] Performed By: #### 5 7021-8 ####BERRIOS LABORATORYCLIA [id number] [place] [address] [place] RBC (Bld) [#/Vol] 3.51 10*6/uL Low 3.90-5.20 [facility] Comment on above: Order Comment: Speci men Type: BLOOD SPECIMENOrdering Facility: [facility] Address: [address] [place] [address] Performed By: #### 5 7021-8 ####BERRIOS LABORATORYCLIA [id number] [place] [id number] [place] WBC (Bld) [#/Vol] 5.13 10*3/uL Normal 3.70-11.00 [facility] Comment on above: Order Comment: Speci men Type: BLOOD SPECIMENOrdering Facility: [facility] Address: [address] [place] [address] Performed By: #### 5 7021-8 ####BERRIOS LABORATORYCLIA [id number] [place] [id number] [place] Basic metabolic 2000 panelon 12-05-2022 Anion gap [Moles/Vol] 12 mmol/L 9 - 18 mmol/L [facility] Calcium [Mass/Vol] 9.5 mg/dL 8.5 - 10. 2 mg/dL [facility] Chloride [Moles/Vol] 109 mmol/L High 97 - 10 5 mmol/L [facility] CO2 [Moles/Vol] 23 mmol/L 22 - 30 mmol/L [facility] Creatinine [Mass/Vol] 1.11 mg/dL High 0.58 - 0.96 mg/dL [facility] Estimated Glomerular Filtration Rate 51 mL/min/1.73m Low >=60 mL/min/1.73m [facility] Glucose [Mass/Vol] 96 mg/dL 74 - 99 mg/dL [facility] Potassium [Moles/Vol] 4.4 mmol/L 3.7 - 5.1 mmol/L [facility] Sodium [Moles/Vol] 144 mmol/L 136 - 144 mmol/L [facility] Urea nitrogen [Mass/Vol] 39 mg/dL High 7 - 21 mg/d L [facility] Anion gap [Moles/Vol] 12 mmol/L Normal 9-18 [facility] Comment on above: Order Comment: Speci men Type: BLOOD SPECIMENOrdering Facility: [facility] Address: [address] [place] [address] Performed By: #### 2 4321-2 ####BERRIOS LABORATORYCLIA [id number] [place] [address] [place] Calcium [Mass/Vol] 9.5 mg/dL Normal 8.5-10.2 [facility] Comment on above: Order Comment: Speci men Type: BLOOD SPECIMENOrdering Facility: [facility] Address: [address] [place] [address] Performed By: #### 2 4321-2 ####BERRIOS LABORATORYCLIA [id number] [place] [id number] [place] Chloride [Moles/Vol] 109 mmol/L High 97-105 [facility] Comment on above: Order Comment: Speci men Type: BLOOD SPECIMENOrdering Facility: [facility] Address: [address] [place] [address] Performed By: #### 2 4321-2 ####BERRIOS LABORATORYCLIA [id number] [place] [address] [place] CO2 [Moles/Vol] 23 mmol/L Normal 22-[address] [facility] Comment on above: Order Comment: Speci men Type: BLOOD SPECIMENOrdering Facility: [facility] Address: [address] [place] [address] Performed By: #### 2 4321-2 ####BERRIOS LABORATORYCLIA [id number] [place] [address] [place] Creatinine [Mass/Vol] 1.11 mg/dL High 0.58-0.96 [facility] Comment on above: Order Comment: Speci men Type: BLOOD SPECIMENOrdering Facility: [facility] Address: [address] [place] [address] Performed By: #### 2 4321-2 ####BERRIOS LABORATORYCLIA [id number] [place] [address] [place] ESTIMATED GLOMERULAR FILTRATION RATE 51 mL/min/1.73m??? Low >=[address] [facility] Comment on above: Order Comment: Speci men Type: BLOOD SPECIMENOrdering Facility: [facility] Address: [address] [place] [address] Result Comment: Caroline mated Glomerular Filtration Rate [...] Performed By: #### 2 4321-2 ####BERRIOS LABORATORYCLIA [id number] [place] [address] [place] Glucose [Mass/Vol] 96 mg/dL Normal 74-99 [facility] Comment on above: Order Comment: Speci men Type: BLOOD SPECIMENOrdering Facility: [facility] Address: [address] [place] [address] Result Comment: The [place] [employer] (ADA) provides guidance for cutoff [...] Standards of Medical Care in Diabetes 2016, [place] [employer]. Diabetes Care. 2016.39(Suppl 1). Performed By: #### 2 4321-2 ####BERRIOS LABORATORYCLIA [id number] [place] [id number] [place] Potassium [Moles/Vol] 4.4 mmol/L Normal 3.7-5.1 [facility] Comment on above: Order Comment: Speci men Type: BLOOD SPECIMENOrdering Facility: [facility] Address: [address] [place] [address] Performed By: #### 2 4321-2 ####BERRIOS LABORATORYCLIA [id number] [place] [address] [place] Sodium [Moles/Vol] 144 mmol/L Normal 136-144 [facility] Comment on above: Order Comment: Speci men Type: BLOOD SPECIMENOrdering Facility: [facility] Address: [address] [place] [address] Performed By: #### 2 4321-2 ####BERRIOS LABORATORYCLIA [id number] [address] [place] [facility] Urea nitrogen [Mass/Vol] 39 mg/dL High 7-[address] [facility] Comment on above: Order Comment: Speci men Type: BLOOD SPECIMENOrdering Facility: [facility] Health Address: [address] [place] [address] Performed By: #### 2 4321-2 ####BERRIOS LABORATORYCLIA [id number] [address] [place] CBC W Auto Differential pane l (Bld)on 12-05-2022 Basophils (Bld) [#/Vol] 0.04 10*3/uL <0.11 k/uL [facility] Basophils/100 WBC (Bld) 0.8 % [facility] Differential cell count method Nom (Bld) Auto [facility] Eosinophils (Bld) [#/Vol] 0.29 10*3/uL <0.46 k/uL [facility] Eosinophils/100 WBC (Bld) 5.9 % [facility] Erythrocyte distribution width (RBC) [Ratio] 14.5 % 11.5 - 15.0 % [facility] Hematocrit (Bld) [Volume fraction] 33.5 % Low 36.0 - 46.0 % [facility] Hemoglobin (Bld) [Mass/Vol] 10.7 g/dL Low 11.5 - 15.5 g/dL [facility] Immature granulocytes (Bld) [#/Vol] <0.10 k/uL [facility] Immature granulocytes/100 WBC (Bld) 0.4 % [facility] Lymphocytes (Bld) [#/Vol] 1.43 10*3/uL 1.00 - 4.00 k/uL [facility] Lymphocytes/100 WBC (Bld) 29.0 % [facility] MCH (RBC) [Entitic mass] 30.8 pg 26. 0 - 34.0 pg [facility] MCHC (RBC) [Mass/Vol] 31.9 g/dL 30.5 - 36.0 g/dL [facility] MCV (RBC) [Entitic vol] 96.5 fL 80.0 - 100.0 fL [facility] Monocytes (Bld) [#/Vol] 0.61 10*3/uL <0.87 k/uL [facility] Monocytes/100 WBC (Bld) 12.4 % [facility] Neutrophils (Bld) [#/Vol] 2.54 10*3/uL 1.45 - 7.50 k/uL [facility] Neutrophils/100 WBC (Bld) 51.5 % [facility] Nucleated RBC (Bld) [#/Vol] <0.01 k/uL [facility] Nucleated RBC/100 WBC (Bld) [Ratio] 0.0 /100 WBC [facility] Platelet mean volume (Bld) [Entitic vol] 10.7 fL 9.0 - 12.7 fL [facility] Platelets (Bld) [#/Vol] 169 10*3/uL 150 - 400 k/uL [facility] RBC (Bld) [#/Vol] 3.47 10*6/uL Low 3.90 - 5.2 0 m/uL [facility] WBC (Bld) [#/Vol] 4.93 10*3/uL 3.70 - 11. 00 k/uL [facility] Basophils (Bld) [#/Vol] 0.04 10*3/uL Normal <0.[address] [facility] Comment on above: Order Comment: Speci men Type: BLOOD SPECIMENOrdering Facility: [facility] Address: [address] [place] [address] Performed By: #### 5 7021-8 ####BERRIOS LABORATORYCLIA [id number] [address] Basophils/100 WBC (Bld) 0.8 % Normal [facility] Comment on above: Order Comment: Speci men Type: BLOOD SPECIMENOrdering Facility: [facility] Address: [address] [place] [address] Performed By: #### 5 7021-8 ####BERRIOS LABORATORYCLIA [id number] [address] [facility] Differential cell count method Nom (Bld) Auto Normal [facility] Comment on above: Order Comment: Speci men Type: BLOOD SPECIMENOrdering Facility: [facility] Address: [address] [place] [address] Performed By: #### 5 7021-8 ####BERRIOS LABORATORYCLIA [id number] [place] [address] [place] Eosinophils (Bld) [#/Vol] 0.29 10*3/uL Normal <0.[address] [facility] Comment on above: Order Comment: Speci men Type: BLOOD SPECIMENOrdering Facility: [facility] Address: [address] [place] [address] Performed By: #### 5 7021-8 ####BERRIOS LABORATORYCLIA [id number] [place] [address] [place] Eosinophils/100 WBC (Bld) 5.9 % Normal [facility] Comment on above: Order Comment: Speci men Type: BLOOD SPECIMENOrdering Facility: [facility] Address: [address] [place] [address] Performed By: #### 5 7021-8 ####BERRIOS LABORATORYCLIA [id number] [place] [address] [place] Erythrocyte distribution width (RBC) [Ratio] 14.5 % Normal 11.5-15.[address] [facility] Comment on above: Order Comment: Speci men Type: BLOOD SPECIMENOrdering Facility: [facility] Address: [address] [place] [address] Performed By: #### 5 7021-8 ####BERRIOS LABORATORYCLIA [id number] [place] [address] [place] Hematocrit (Bld) [Volume fraction] 33.5 % Low 36.0-46.[address] [facility] Comment on above: Order Comment: Speci men Type: BLOOD SPECIMENOrdering Facility: [facility] Address: [address] [place] [address] Performed By: #### 5 7021-8 ####BERRIOS LABORATORYCLIA [id number] [place] [address] [place] Hemoglobin (Bld) [Mass/Vol] 10.7 g/dL Low 11.5-15.[address] [facility] Comment on above: Order Comment: Speci men Type: BLOOD SPECIMENOrdering Facility: [facility] Address: [address] [place] [address] Performed By: #### 5 7021-8 ####BERRIOS LABORATORYCLIA [id number] [address] [place] Immature granulocytes (Bld) [#/Vol] 10*3/uL Normal <0.[address] [facility] Comment on above: Order Comment: Speci men Type: BLOOD SPECIMENOrdering Facility: [facility] Address: [address] [place] [address] Performed By: #### 5 7021-8 ####BERRIOS LABORATORYCLIA [id number] [address] Immature granulocytes/100 WBC (Bld) 0.4 % Normal [facility] Comment on above: Order Comment: Speci men Type: BLOOD SPECIMENOrdering Facility: [facility] Address: [address] [place] [address] Performed By: #### 5 7021-8 ####BERRIOS LABORATORYCLIA [id number] [place] [address] [place] Lymphocytes (Bld) [#/Vol] 1.43 10*3/uL Normal 1.00-4.[address] [facility] Comment on above: Order Comment: Speci men Type: BLOOD SPECIMENOrdering Facility: [facility] Address: [address] [place] [address] Performed By: #### 5 7021-8 ####BERRIOS LABORATORYCLIA [id number] [address] [place] Lymphocytes/100 WBC (Bld) 29.0 % Normal [facility] Comment on above: Order Comment: Speci men Type: BLOOD SPECIMENOrdering Facility: [facility] Address: [address] [place] [address] Performed By: #### 5 7021-8 ####BERRIOS LABORATORYCLIA [id number] [place] [address] [place] MCH (RBC) [Entitic mass] 30.8 pg Normal 26.0-34.[address] [facility] Comment on above: Order Comment: Speci men Type: BLOOD SPECIMENOrdering Facility: [facility] Address: [address] [place] [address] Performed By: #### 5 7021-8 ####BERRIOS LABORATORYCLIA [id number] [address] [place] MCHC (RBC) [Mass/Vol] 31.9 g/dL Normal 30.5-36.0 [facility] Comment on above: Order Comment: Speci men Type: BLOOD SPECIMENOrdering Facility: [facility] Address: [address] [place] [address] Performed By: #### 5 7021-8 ####BERRIOS LABORATORYCLIA [id number] [address] [place] MCV (RBC) [Entitic vol] 96.5 fL Normal 80.0-100.0 [facility] Comment on above: Order Comment: Speci men Type: BLOOD SPECIMENOrdering Facility: [facility] Address: [address] [place] [address] Performed By: #### 5 7021-8 ####BERRIOS LABORATORYCLIA [id number] [address] [place] Monocytes (Bld) [#/Vol] 0.61 10*3/uL Normal <0.[address] [facility] Comment on above: Order Comment: Speci men Type: BLOOD SPECIMENOrdering Facility: [facility] Address: [address] [place] [address] Performed By: #### 5 7021-8 ####BERRIOS LABORATORYCLIA [id number] [address] Monocytes/100 WBC (Bld) 12.4 % Normal [facility] Comment on above: Order Comment: Speci men Type: BLOOD SPECIMENOrdering Facility: [facility] Address: [address] [place] [address] Performed By: #### 5 7021-8 ####BERRIOS LABORATORYCLIA [id number] [place] [address] [place] Neutrophils (Bld) [#/Vol] 2.54 10*3/uL Normal 1.45-7.[address] [facility] Comment on above: Order Comment: Speci men Type: BLOOD SPECIMENOrdering Facility: [facility] Address: [address] [place] [address] Performed By: #### 5 7021-8 ####BERRIOS LABORATORYCLIA [id number] [place] [address] [place] Neutrophils/100 WBC (Bld) 51.5 % Normal [facility] Comment on above: Order Comment: Speci men Type: BLOOD SPECIMENOrdering Facility: [facility] Address: [address] [place] [address] Performed By: #### 5 7021-8 ####BERRIOS LABORATORYCLIA [id number] [place] [address] [place] Nucleated RBC (Bld) [#/Vol] 10*3/uL Normal <0.[address] [facility] Comment on above: Order Comment: Speci men Type: BLOOD SPECIMENOrdering Facility: [facility] Address: [address] [place] [address] Performed By: #### 5 7021-8 ####BERRIOS LABORATORYCLIA [id number] [place] [address] [place] Nucleated RBC/100 WBC (Bld) [Ratio] 0.0 /100 WBC Normal [facility] Comment on above: Order Comment: Speci men Type: BLOOD SPECIMENOrdering Facility: [facility] Address: [address] [place] [address] Performed By: #### 5 7021-8 ####BERRIOS LABORATORYCLIA [id number] [place] [address] [place] Platelet mean volume (Bld) [Entitic vol] 10.7 fL Normal 9.0-12.[address] [facility] Comment on above: Order Comment: Speci men Type: BLOOD SPECIMENOrdering Facility: [facility] Address: [address] [place] [address] Performed By: #### 5 7021-8 ####BERRIOS LABORATORYCLIA [id number] [place] [address] [place] Platelets (Bld) [#/Vol] 169 10*3/uL Normal 150-[address] [facility] Comment on above: Order Comment: Speci men Type: BLOOD SPECIMENOrdering Facility: [facility] Address: [address] [place] [address] Performed By: #### 5 7021-8 ####BERRIOS LABORATORYCLIA [id number] [place] [address] [place] RBC (Bld) [#/Vol] 3.47 10*6/uL Low 3.90-5.20 [facility] Comment on above: Order Comment: Speci men Type: BLOOD SPECIMENOrdering Facility: [facility] Address: [address] [place] [address] Performed By: #### 5 7021-8 ####BERRIOS LABORATORYCLIA [id number] [place] [address] [place] WBC (Bld) [#/Vol] 4.93 10*3/uL Normal 3.70-11.00 [facility] Comment on above: Order Comment: Speci men Type: BLOOD SPECIMENOrdering Facility: [facility] Address: [address] [place] [address] Performed By: #### 5 7021-8 ####BERRIOS LABORATORYCLIA [id number] [place] [id number] [place] Basic metabolic 2000 panelon 12-02-2022 Anion gap [Moles/Vol] 11 mmol/L Normal 9-18 [facility] Comment on above: Order Comment: Speci men Type: BLOOD SPECIMENOrdering Facility: [facility] Address: [address] [place] [address] Performed By: #### 2 4321-2 ####HILLCREST LABORATORYCLIA [id number] [place] [id number] [place] Calcium [Mass/Vol] 9.4 mg/dL Normal 8.5-10.2 [facility] Comment on above: Order Comment: Speci men Type: BLOOD SPECIMENOrdering Facility: [facility] Address: [address] [place] [address] Performed By: #### 2 4321-2 ####HILLCREST LABORATORYCLIA [id number] [place] [address] [place] Chloride [Moles/Vol] 107 mmol/L High 97-105 [facility] Comment on above: Order Comment: Speci men Type: BLOOD SPECIMENOrdering Facility: [facility] Address: [address] [place] [address] Performed By: #### 2 4321-2 ####DEREJECREST LABORATORYCLIA [id number] [place] [address] [place] CO2 [Moles/Vol] 23 mmol/L Normal 22-30 [facility] Comment on above: Order Comment: Speci men Type: BLOOD SPECIMENOrdering Facility: [facility] Address: [address] [place] [address] Performed By: #### 2 4321-2 ####HILLCREST LABORATORYCLIA [id number] [place] [address] [place] Creatinine [Mass/Vol] 1.04 mg/dL High 0.58-0.96 [facility] Comment on above: Order Comment: Speci men Type: BLOOD SPECIMENOrdering Facility: [facility] Address: [address] [place] [address] Performed By: #### 2 4321-2 ####HILLCREST LABORATORYCLIA [id number] [place] [address] [place] Estimated Glomerular Filtration Rate 55 mL/min/1.73m Low >=60 mL/min/1.73m [facility] Glucose [Mass/Vol] 104 mg/dL High 74-99 [facility] Comment on above: Order Comment: Speci men Type: BLOOD SPECIMENOrdering Facility: [facility] Address: [address] [place] [address] Result Comment: The [place] [employer] (ADA) provides guidance for cutoff [...] Standards of Medical Care in Diabetes 2016, [employer]. Diabetes Care. 2016.39(Suppl 1). Performed By: #### 2 4321-2 ####HILLCREST LABORATORYCLIA [id number] [place] [address] [place] Potassium [Moles/Vol] 4.2 mmol/L Normal 3.7-5.1 [facility] Comment on above: Order Comment: Speci men Type: BLOOD SPECIMENOrdering Facility: [facility] Address: [address] [place] [address] Performed By: #### 2 4321-2 ####HILLCREST LABORATORYCLIA [id number] [place] [address] [place] Sodium [Moles/Vol] 141 mmol/L Normal 136-144 [facility] Comment on above: Order Comment: Speci men Type: BLOOD SPECIMENOrdering Facility: [facility] Address: [address] [place] [address] Performed By: #### 2 4321-2 ####HILLCREST LABORATORYCLIA [id number] [place] [address] [place] Urea nitrogen [Mass/Vol] 41 mg/dL High 7-21 [facility] Comment on above: Order Comment: Speci men Type: BLOOD SPECIMENOrdering Facility: [facility] Address: [address] [place] [address] Performed By: #### 2 4321-2 ####HILLCREST LABORATORYCLIA [id number] [place] [address] [place] ESTIMATED GLOMERULAR FILTRATION RATE 55 mL/min/1.73m??? Low >=[address] [facility] Comment on above: Order Comment: Speci men Type: BLOOD SPECIMENOrdering Facility: [facility] Address: [address] [place] [address] Result Comment: Caroline mated Glomerular Filtration Rate [...] Performed By: #### 2 4321-2 ####HILLCREST LABORATORYCLIA [id number] [place] [address] [place] CBC W Auto Differential pane l (Bld)on 12-02-2022 Basophils (Bld) [#/Vol] 0.03 10*3/uL Normal <0.11 [facility] Comment on above: Order Comment: Speci men Type: BLOOD SPECIMENOrdering Facility: [facility] Address: [address] [place] [address] Performed By: #### 5 7021-8 ####HILLCREST LABORATORYCLIA [id number] [place] [address] [place] Basophils/100 WBC (Bld) 0.6 % Normal C [facility] Comment on above: Order Comment: Speci men Type: BLOOD SPECIMENOrdering Facility: [facility] Address: [address] [place] [address] Performed By: #### 5 7021-8 ####HILLCREST LABORATORYCLIA [id number] [place] [address] [place] Differential cell count method Nom (Bld) Auto Normal [facility] Comment on above: Order Comment: Speci men Type: BLOOD SPECIMENOrdering Facility: [facility] Address: [address] [place] [address] Performed By: #### 5 7021-8 ####HILLCREST LABORATORYCLIA [id number] [place] [address] [place] Eosinophils (Bld) [#/Vol] 0.27 10*3/uL Normal <0.46 [facility] Comment on above: Order Comment: Speci men Type: BLOOD SPECIMENOrdering Facility: [facility] Address: [address] [place] [address] Performed By: #### 5 7021-8 ####HILLCREST LABORATORYCLIA [id number] [place] [address] [place] Eosinophils/100 WBC (Bld) 5.6 % Normal [facility] Comment on above: Order Comment: Speci men Type: BLOOD SPECIMENOrdering Facility: [facility] Address: [address] [place] [address] Performed By: #### 5 7021-8 ####DEREJECREST LABORATORYCLIA [id number] [address] [place] Erythrocyte distribution width (RBC) [Ratio] 14.3 % Normal 11.5-15.0 [facility] Comment on above: Order Comment: Speci men Type: BLOOD SPECIMENOrdering Facility: [facility] Address: [address] [place] [address] Performed By: #### 5 7021-8 ####DEREJECREST LABORATORYCLIA [id number] [address] [place] Hematocrit (Bld) [Volume fraction] 35.5 % Low 36.0-46.0 [facility] Comment on above: Order Comment: Speci men Type: BLOOD SPECIMENOrdering Facility: [facility] Address: [address] [place] [address] Performed By: #### 5 7021-8 ####HILLCREST LABORATORYCLIA [id number] [place] [address] [place] Hemoglobin (Bld) [Mass/Vol] 12.3 g/dL Normal 11.5-15.5 [facility] Comment on above: Order Comment: Speci men Type: BLOOD SPECIMENOrdering Facility: [facility] Address: [address] [place] [address] Performed By: #### 5 7021-8 ####HILLCREST LABORATORYCLIA [id number] [place] [address] [place] Immature granulocytes (Bld) [#/Vol] <0.10 k/uL [facility] Immature granulocytes/100 WBC (Bld) 0.4 % Normal [facility] Comment on above: Order Comment: Speci men Type: BLOOD SPECIMENOrdering Facility: [facility] Address: [address] [place] [address] Performed By: #### 5 7021-8 ####DEREJECREST LABORATORYCLIA [id number] [place] [address] [place] Lymphocytes (Bld) [#/Vol] 1.12 10*3/uL Normal 1.00-4.00 [facility] Comment on above: Order Comment: Speci men Type: BLOOD SPECIMENOrdering Facility: [facility] Address: [address] [place] [address] Performed By: #### 5 7021-8 ####DEREJECREST LABORATORYCLIA [id number] [address] [place] [facility] Lymphocytes/100 WBC (Bld) 23.3 % Normal [facility] Comment on above: Order Comment: Speci men Type: BLOOD SPECIMENOrdering Facility: [facility] Address: [address] [place] [address] Performed By: #### 5 7021-8 ####DEREJECREST LABORATORYCLIA [id number] [place] [address] [place] MCH (RBC) [Entitic mass] 33.2 pg Normal 26.0-34.0 [facility] Comment on above: Order Comment: Speci men Type: BLOOD SPECIMENOrdering Facility: [facility] Address: [address] [place] [address] Performed By: #### 5 7021-8 ####HILLCREST LABORATORYCLIA [id number] [address] [place] MCHC (RBC) [Mass/Vol] 34.6 g/dL Normal 30.5-36.0 [facility] Comment on above: Order Comment: Speci men Type: BLOOD SPECIMENOrdering Facility: [facility] Address: [address] [place] [address] Performed By: #### 5 7021-8 ####DEREJECREST LABORATORYCLIA [id number] [place] [address] [place] MCV (RBC) [Entitic vol] 95.9 fL Normal 80.0-100.0 C [facility] Comment on above: Order Comment: Speci men Type: BLOOD SPECIMENOrdering Facility: [facility] Address: [address] [place] [address] Performed By: #### 5 7021-8 ####DEREJECREST LABORATORYCLIA [id number] [place] [address] [place] Monocytes (Bld) [#/Vol] 0.56 10*3/uL Normal <0.87 [facility] Comment on above: Order Comment: Speci men Type: BLOOD SPECIMENOrdering Facility: [facility] Address: [address] [place] [address] Performed By: #### 5 7021-8 ####DEREJECREST LABORATORYCLIA [id number] [address] [place] Monocytes/100 WBC (Bld) 11.6 % Normal C [facility] Comment on above: Order Comment: Speci men Type: BLOOD SPECIMENOrdering Facility: [facility] Address: [address] [place] [address] Performed By: #### 5 7021-8 ####HILLCREST LABORATORYCLIA [id number] [place] [address] [place] Neutrophils (Bld) [#/Vol] 2.81 10*3/uL Normal 1.45-7.50 [facility] Comment on above: Order Comment: Speci men Type: BLOOD SPECIMENOrdering Facility: [facility] Address: [address] [place] [address] Performed By: #### 5 7021-8 ####DEREJECREST LABORATORYCLIA [id number] [place] [address] [place] Neutrophils/100 WBC (Bld) 58.5 % Normal [facility] Comment on above: Order Comment: Speci men Type: BLOOD SPECIMENOrdering Facility: [facility] Address: [address] [place] [address] Performed By: #### 5 7021-8 ####DEREJECREST LABORATORYCLIA [id number] [place] [address] [place] Nucleated RBC (Bld) [#/Vol] <0.01 k/uL [facility] Nucleated RBC/100 WBC (Bld) [Ratio] 0.0 /100 WBC Normal [facility] Comment on above: Order Comment: Speci men Type: BLOOD SPECIMENOrdering Facility: [facility] [facility] Address: [address] [place] [address] Performed By: #### 5 7021-8 ####DEREJECREST LABORATORYCLIA [id number] [place] [address] [place] Platelet mean volume (Bld) [Entitic vol] 10.8 fL Normal 9.0-12.7 [facility] Comment on above: Order Comment: Speci men Type: BLOOD SPECIMENOrdering Facility: [facility] Address: [address] [place] [address] Performed By: #### 5 7021-8 ####DEREJECREST LABORATORYCLIA [id number] [place] [address] [place] Platelets (Bld) [#/Vol] 208 10*3/uL Normal 150-400 [facility] Comment on above: Order Comment: Speci men Type: BLOOD SPECIMENOrdering Facility: [facility] Address: [address] [place] [address] Performed By: #### 5 7021-8 ####HILLCREST LABORATORYCLIA [id number] [place] [address] [place] RBC (Bld) [#/Vol] 3.70 10*6/uL Low 3.90-5.20 [facility] Comment on above: Order Comment: Speci men Type: BLOOD SPECIMENOrdering Facility: [facility] Address: [address] [place] [address] Performed By: #### 5 7021-8 ####HILLCREST LABORATORYCLIA [id number] [place] [address] [place] WBC (Bld) [#/Vol] 4.81 10*3/uL Normal 3.70-11.00 [facility] Comment on above: Order Comment: Speci men Type: BLOOD SPECIMENOrdering Facility: [facility] Address: [address] [place] [address] Performed By: #### 5 7021-8 ####DEREJECREST LABORATORYCLIA [id number] [place] [address] [place] Immature granulocytes (Bld) [#/Vol] 10*3/uL Normal <0.[address] [facility] Comment on above: Order Comment: Speci men Type: BLOOD SPECIMENOrdering Facility: [facility] Address: [address] [place] [address] Performed By: #### 5 7021-8 ####DEREJECREST LABORATORYCLIA [id number] [place] [address] [place] Nucleated RBC (Bld) [#/Vol] 10*3/uL Normal <0.[address] [facility] Comment on above: Order Comment: Speci men Type: BLOOD SPECIMENOrdering Facility: [facility] Address: [address] [place] [address] Performed By: #### 5 7021-8 ####HILLCREST LABORATORYCLIA [id number] [place] [address] [place] Basic metabolic 2000 panelon 11-28-2022 Anion gap [Moles/Vol] 9 mmol/L 9 - 18 mmol/L [facility] Calcium [Mass/Vol] 10.0 mg/dL 8.5 - 10. 2 mg/dL [facility] Chloride [Moles/Vol] 104 mmol/L 97 - 10 5 mmol/L [facility] CO2 [Moles/Vol] 25 mmol/L 22 - 30 mmol/L [facility] Creatinine [Mass/Vol] 1.29 mg/dL High 0.58 - 0.96 mg/dL [facility] Estimated Glomerular Filtration Rate 42 mL/min/1.73m Low >=60 mL/min/1.73m [facility] Glucose [Mass/Vol] 73 mg/dL Low 74 - 99 mg/dL [facility] Potassium [Moles/Vol] 4.8 mmol/L 3.7 - 5.1 mmol/L [facility] Sodium [Moles/Vol] 138 mmol/L 136 - 144 mmol/L [facility] Urea nitrogen [Mass/Vol] 45 mg/dL High 7 - 21 mg/d L [facility] Anion gap [Moles/Vol] 9 mmol/L Normal 9-18 [facility] Comment on above: Order Comment: Speci men Type: BLOOD SPECIMENOrdering Facility: [facility] Address: [address] [place] [address] Performed By: #### 2 4321-2 ####BERRIOS LABORATORYCLIA [id number] [place] [address] [place] Calcium [Mass/Vol] 10.0 mg/dL Normal 8.5-10.2 [facility] Comment on above: Order Comment: Speci men Type: BLOOD SPECIMENOrdering Facility: [facility] Address: [address] [place] [address] Performed By: #### 2 4321-2 ####BERRIOS LABORATORYCLIA [id number] [place] [address] [place] Chloride [Moles/Vol] 104 mmol/L Normal 97-105 [facility] Comment on above: Order Comment: Speci men Type: BLOOD SPECIMENOrdering Facility: [facility] Address: [address] [place] [address] Performed By: #### 2 4321-2 ####BERRIOS LABORATORYCLIA [id number] [place] [address] [place] CO2 [Moles/Vol] 25 mmol/L Normal 22-[address] [facility] Comment on above: Order Comment: Speci men Type: BLOOD SPECIMENOrdering Facility: [facility] Address: [address] [place] [address] Performed By: #### 2 4321-2 ####BERRIOS LABORATORYCLIA [id number] [place] [address] [place] Creatinine [Mass/Vol] 1.29 mg/dL High 0.58-0.96 [facility] Comment on above: Order Comment: Speci men Type: BLOOD SPECIMENOrdering Facility: [facility] Address: [address] [place] [address] Performed By: #### 2 4321-2 ####BERRIOS LABORATORYCLIA [id number] [place] [address] [place] ESTIMATED GLOMERULAR FILTRATION RATE 42 mL/min/1.73m??? Low >=[address] [facility] Comment on above: Order Comment: Speci men Type: BLOOD SPECIMENOrdering Facility: [facility] Address: [address] [place] [address] Result Comment: Caroline mated Glomerular Filtration Rate [...] Performed By: #### 2 4321-2 ####BERRIOS LABORATORYCLIA [id number] [place] [address] [place] Glucose [Mass/Vol] 73 mg/dL Low 74-99 [facility] Comment on above: Order Comment: Speci men Type: BLOOD SPECIMENOrdering Facility: [facility] Address: [address] [place] [address] Result Comment: The [employer] (ADA) provides guidance for cutoff [...] Standards of Medical Care in Diabetes 2016, [employer]. Diabetes Care. 2016.39(Suppl 1). Performed By: #### 2 4321-2 ####BERRIOS LABORATORYCLIA [id number] [address] [place] Potassium [Moles/Vol] 4.8 mmol/L Normal 3.7-5.1 [facility] Comment on above: Order Comment: Speci men Type: BLOOD SPECIMENOrdering Facility: [facility] Address: [address] [place] [address] Performed By: #### 2 4321-2 ####BERRIOS LABORATORYCLIA [id number] [address] [place] [facility] Sodium [Moles/Vol] 138 mmol/L Normal 136-144 [facility] Comment on above: Order Comment: Feii stef Type: BLOOD SPECIMENOrdering Facility: [facility] Address: [address] [place] [address] Performed By: #### 2 4321-2 ####BERRIOS LABORATORYCLIA [id number] [address] [place] Urea nitrogen [Mass/Vol] 45 mg/dL High 7-[address] [facility] Comment on above: Order Comment: Feii stef Type: BLOOD SPECIMENOrdering Facility: [facility] Address: [address] [place] [address] Performed By: #### 2 4321-2 ####BERRIOS LABORATORYCLIA [id number] [place] [id number] [place] CBC W Auto Differential pane l (Bld)on 11-28-2022 Basophils (Bld) [#/Vol] 0.05 10*3/uL <0.11 k/uL [facility] Basophils/100 WBC (Bld) 0.9 % C [facility] Differential cell count method Nom (Bld) Auto [facility] Eosinophils (Bld) [#/Vol] 0.17 10*3/uL <0.46 k/uL [facility] Eosinophils/100 WBC (Bld) 3.1 % [facility] Erythrocyte distribution width (RBC) [Ratio] 13.9 % 11.5 - 15.0 % [facility] Hematocrit (Bld) [Volume fraction] 38.0 % 36.0 - 46.0 % [facility] Hemoglobin (Bld) [Mass/Vol] 12.1 g/dL 11.5 - 15.5 g/dL [facility] Immature granulocytes (Bld) [#/Vol] 0.03 10*3/uL <0.10 k/uL [facility] Immature granulocytes/100 WBC (Bld) 0.5 % [facility] Lymphocytes (Bld) [#/Vol] 1.90 10*3/uL 1.00 - 4.00 k/uL [facility] Lymphocytes/100 WBC (Bld) 34.4 % [facility] MCH (RBC) [Entitic mass] 30.6 pg 26. 0 - 34.0 pg [facility] MCHC (RBC) [Mass/Vol] 31.8 g/dL 30.5 - 36.0 g/dL [facility] MCV (RBC) [Entitic vol] 96.2 fL 80.0 - 100.0 fL [facility] Monocytes (Bld) [#/Vol] 0.54 10*3/uL <0.87 k/uL [facility] Monocytes/100 WBC (Bld) 9.8 % C [facility] Neutrophils (Bld) [#/Vol] 2.84 10*3/uL 1.45 - 7.50 k/uL [facility] Neutrophils/100 WBC (Bld) 51.3 % [facility] Nucleated RBC (Bld) [#/Vol] <0.01 k/uL [facility] Nucleated RBC/100 WBC (Bld) [Ratio] 0.0 /100 WBC [facility] Platelet mean volume (Bld) [Entitic vol] 10.2 fL 9.0 - 12.7 fL [facility] Platelets (Bld) [#/Vol] 245 10*3/uL 150 - 400 k/uL [facility] RBC (Bld) [#/Vol] 3.95 10*6/uL 3.90 - 5.2 0 m/uL [facility] WBC (Bld) [#/Vol] 5.53 10*3/uL 3.70 - 11. 00 k/uL [facility] Basophils (Bld) [#/Vol] 0.05 10*3/uL Normal <0.[address] [facility] Comment on above: Order Comment: Speci men Type: BLOOD SPECIMENOrdering Facility: [facility] Address: [address] [place] [address] Performed By: #### 5 7021-8 ####BERRIOS LABORATORYCLIA [id number] [place] [address] [place] Basophils/100 WBC (Bld) 0.9 % Normal C [facility] Comment on above: Order Comment: Speci men Type: BLOOD SPECIMENOrdering Facility: [facility] Address: [address] [place] [address] Performed By: #### 5 7021-8 ####BERRIOS LABORATORYCLIA [id number] [place] [address] [place] Differential cell count method Nom (Bld) Auto Normal [facility] Comment on above: Order Comment: Speci men Type: BLOOD SPECIMENOrdering Facility: [facility] Address: [address] [place] [address] Performed By: #### 5 7021-8 ####BERRIOS LABORATORYCLIA [id number] [place] [address] [place] Eosinophils (Bld) [#/Vol] 0.17 10*3/uL Normal <0.[address] [facility] Comment on above: Order Comment: Speci men Type: BLOOD SPECIMENOrdering Facility: [facility] Address: [address] [place] [address] Performed By: #### 5 7021-8 ####BERRIOS LABORATORYCLIA [id number] [place] [address] [place] Eosinophils/100 WBC (Bld) 3.1 % Normal [facility] Comment on above: Order Comment: Speci men Type: BLOOD SPECIMENOrdering Facility: [facility] Address: [address] [place] [address] Performed By: #### 5 7021-8 ####BERRIOS LABORATORYCLIA [id number] [place] [address] [place] Erythrocyte distribution width (RBC) [Ratio] 13.9 % Normal 11.5-15.[address] [facility] Comment on above: Order Comment: Speci men Type: BLOOD SPECIMENOrdering Facility: [facility] Address: [address] [place] [address] Performed By: #### 5 7021-8 ####BERRIOS LABORATORYCLIA [id number] [place] [address] [place] Hematocrit (Bld) [Volume fraction] 38.0 % Normal 36.0-46.[address] [facility] Comment on above: Order Comment: Speci men Type: BLOOD SPECIMENOrdering Facility: [facility] Address: [address] [place] [address] Performed By: #### 5 7021-8 ####BERRIOS LABORATORYCLIA [id number] [place] [address] [place] Hemoglobin (Bld) [Mass/Vol] 12.1 g/dL Normal 11.5-15.[address] [facility] Comment on above: Order Comment: Speci men Type: BLOOD SPECIMENOrdering Facility: [facility] Address: [address] [place] [address] Performed By: #### 5 7021-8 ####BERRIOS LABORATORYCLIA [id number] [address] [place] Immature granulocytes (Bld) [#/Vol] 0.03 10*3/uL Normal <0.[address] [facility] Comment on above: Order Comment: Speci men Type: BLOOD SPECIMENOrdering Facility: [facility] Address: [address] [place] [address] Performed By: #### 5 7021-8 ####BERRIOS LABORATORYCLIA [id number] [address] [place] Immature granulocytes/100 WBC (Bld) 0.5 % Normal [facility] Comment on above: Order Comment: Speci men Type: BLOOD SPECIMENOrdering Facility: [facility] Address: [address] [place] [address] Performed By: #### 5 7021-8 ####BERRIOS LABORATORYCLIA [id number] [place] [address] [place] Lymphocytes (Bld) [#/Vol] 1.90 10*3/uL Normal 1.00-4.[address] [facility] Comment on above: Order Comment: Speci men Type: BLOOD SPECIMENOrdering Facility: [facility] Address: [address] [place] [address] Performed By: #### 5 7021-8 ####BERRIOS LABORATORYCLIA [id number] [address] [place] Lymphocytes/100 WBC (Bld) 34.4 % Normal [facility] Comment on above: Order Comment: Speci men Type: BLOOD SPECIMENOrdering Facility: [facility] Address: [address] [place] [address] Performed By: #### 5 7021-8 ####BERRIOS LABORATORYCLIA [id number] [address] [place] MCH (RBC) [Entitic mass] 30.6 pg Normal 26.0-34.[address] [facility] Comment on above: Order Comment: Speci men Type: BLOOD SPECIMENOrdering Facility: [facility] Address: [address] [place] [address] Performed By: #### 5 7021-8 ####BERRIOS LABORATORYCLIA [id number] [address] [place] MCHC (RBC) [Mass/Vol] 31.8 g/dL Normal 30.5-36.0 [facility] Comment on above: Order Comment: Speci men Type: BLOOD SPECIMENOrdering Facility: [facility] Address: [address] [place] [address] Performed By: #### 5 7021-8 ####BERRIOS LABORATORYCLIA [id number] [address] [facility] MCV (RBC) [Entitic vol] 96.2 fL Normal 80.0-100.0 [facility] Comment on above: Order Comment: Speci men Type: BLOOD SPECIMENOrdering Facility: [facility] Address: [address] [place] [address] Performed By: #### 5 7021-8 ####BERRIOS LABORATORYCLIA [id number] [place] [address] [place] Monocytes (Bld) [#/Vol] 0.54 10*3/uL Normal <0.[address] [facility] Comment on above: Order Comment: Speci men Type: BLOOD SPECIMENOrdering Facility: [facility] Address: [address] [place] [address] Performed By: #### 5 7021-8 ####BERRIOS LABORATORYCLIA [id number] [place] [address] [place] Monocytes/100 WBC (Bld) 9.8 % Normal [facility] Comment on above: Order Comment: Speci men Type: BLOOD SPECIMENOrdering Facility: [facility] Address: [address] [place] [address] Performed By: #### 5 7021-8 ####BERRIOS LABORATORYCLIA [id number] [place] [address] [place] Neutrophils (Bld) [#/Vol] 2.84 10*3/uL Normal 1.45-7.[address] [facility] Comment on above: Order Comment: Speci men Type: BLOOD SPECIMENOrdering Facility: [facility] Address: [address] [place] [address] Performed By: #### 5 7021-8 ####BERRIOS LABORATORYCLIA [id number] [place] [id number] [place] Neutrophils/100 WBC (Bld) 51.3 % Normal [facility] Comment on above: Order Comment: Speci men Type: BLOOD SPECIMENOrdering Facility: [facility] Address: [address] [place] [address] Performed By: #### 5 7021-8 ####BERRIOS LABORATORYCLIA [id number] [place] [id number] [place] Nucleated RBC (Bld) [#/Vol] 10*3/uL Normal <0.[address] [facility] Comment on above: Order Comment: Speci men Type: BLOOD SPECIMENOrdering Facility: [facility] Address: [address] [place] [address] Performed By: #### 5 7021-8 ####BERRIOS LABORATORYCLIA [id number] [place] [address] [place] Nucleated RBC/100 WBC (Bld) [Ratio] 0.0 /100 WBC Normal [facility] Comment on above: Order Comment: Speci men Type: BLOOD SPECIMENOrdering Facility: [facility] Address: [address] [place] [address] Performed By: #### 5 7021-8 ####BERRIOS LABORATORYCLIA [id number] [place] [address] [place] Platelet mean volume (Bld) [Entitic vol] 10.2 fL Normal 9.0-12.[address] [facility] Comment on above: Order Comment: Speci men Type: BLOOD SPECIMENOrdering Facility: [facility] Address: [address] [place] [address] Performed By: #### 5 7021-8 ####BERRIOS LABORATORYCLIA [id number] [place] [address] [place] Platelets (Bld) [#/Vol] 245 10*3/uL Normal 150-[address] [facility] Comment on above: Order Comment: Speci men Type: BLOOD SPECIMENOrdering Facility: [facility] Address: [address] [place] [address] Performed By: #### 5 7021-8 ####BERRIOS LABORATORYCLIA [id number] [place] [id number] [place] RBC (Bld) [#/Vol] 3.95 10*6/uL Normal 3.90-5.20 [facility] Comment on above: Order Comment: Speci men Type: BLOOD SPECIMENOrdering Facility: [facility] Address: [address] [place] [address] Performed By: #### 5 7021-8 ####BERRIOS LABORATORYCLIA [id number] [place] [address] [place] WBC (Bld) [#/Vol] 5.53 10*3/uL Normal 3.70-11.00 [facility] Comment on above: Order Comment: Speci men Type: BLOOD SPECIMENOrdering Facility: [facility] Address: [address] [place] [address] Performed By: #### 5 7021-8 ####BERRIOS LABORATORYCLIA [id number] [place] [address] [place] Basic metabolic 2000 panelon 11-25-2022 Anion gap [Moles/Vol] 10 mmol/L 9 - 18 mmol/L [facility] Calcium [Mass/Vol] 9.5 mg/dL 8.5 - 10. 2 mg/dL [facility] Chloride [Moles/Vol] 106 mmol/L High 97 - 10 5 mmol/L [facility] CO2 [Moles/Vol] 26 mmol/L 22 - 30 mmol/L [facility] Creatinine [Mass/Vol] 1.13 mg/dL High 0.58 - 0.96 mg/dL [facility] Estimated Glomerular Filtration Rate 50 mL/min/1.73m Low >=60 mL/min/1.73m [facility] Glucose [Mass/Vol] 89 mg/dL 74 - 99 mg/dL [facility] Potassium [Moles/Vol] 4.2 mmol/L 3.7 - 5.1 mmol/L [facility] Sodium [Moles/Vol] 142 mmol/L 136 - 144 mmol/L [facility] Urea nitrogen [Mass/Vol] 32 mg/dL High 7 - 21 mg/d L [facility] Anion gap [Moles/Vol] 10 mmol/L Normal 9-18 [facility] Comment on above: Order Comment: Speci men Type: BLOOD SPECIMENOrdering Facility: [facility] Address: [address] [place] [address] Performed By: #### 2 4321-2 ####BERRIOS LABORATORYCLIA [id number] [address] [place] [facility] Calcium [Mass/Vol] 9.5 mg/dL Normal 8.5-10.2 [facility] Comment on above: Order Comment: Speci men Type: BLOOD SPECIMENOrdering Facility: [facility] Address: [address] [place] [address] Performed By: #### 2 4321-2 ####BERRIOS LABORATORYCLIA [id number] [place] [id number] [place] Chloride [Moles/Vol] 106 mmol/L High 97-105 [facility] Comment on above: Order Comment: Speci men Type: BLOOD SPECIMENOrdering Facility: [facility] Address: [address] [place] [address] Performed By: #### 2 4321-2 ####BERRIOS LABORATORYCLIA [id number] [place] [address] [place] CO2 [Moles/Vol] 26 mmol/L Normal 22-[address] [facility] Comment on above: Order Comment: Speci men Type: BLOOD SPECIMENOrdering Facility: [facility] Address: [address] [place] [address] Performed By: #### 2 4321-2 ####BERRIOS LABORATORYCLIA [id number] [place] [address] [place] Creatinine [Mass/Vol] 1.13 mg/dL High 0.58-0.96 [facility] Comment on above: Order Comment: Speci men Type: BLOOD SPECIMENOrdering Facility: [facility] Address: [address] [place] [address] Performed By: #### 2 4321-2 ####BERRIOS LABORATORYCLIA [id number] [address] [place] ESTIMATED GLOMERULAR FILTRATION RATE 50 mL/min/1.73m??? Low >=[address] [facility] Comment on above: Order Comment: Speci men Type: BLOOD SPECIMENOrdering Facility: [facility] Address: [address] [place] [address] Result Comment: Caroline mated Glomerular Filtration Rate [...] Performed By: #### 2 4321-2 ####BERRIOS LABORATORYCLIA [id number] [place] [address] [place] Glucose [Mass/Vol] 89 mg/dL Normal 74-99 [facility] Comment on above: Order Comment: Speci men Type: BLOOD SPECIMENOrdering Facility: [facility] Address: [address] [place] [address] Result Comment: The [place] [employer] (ADA) provides guidance for cutoff [...] Standards of Medical Care in Diabetes 2016, [place] [employer]. Diabetes Care. 2016.39(Suppl 1). Performed By: #### 2 4321-2 ####BERRIOS LABORATORYCLIA [id number] [place] [address] [place] Potassium [Moles/Vol] 4.2 mmol/L Normal 3.7-5.1 [facility] Comment on above: Order Comment: Jordyn finch Type: BLOOD SPECIMENOrdering Facility: [facility] Address: [address] [place] [address] Performed By: #### 2 4321-2 ####BERRIOS LABORATORYCLIA [id number] [place] [id number] [place] Sodium [Moles/Vol] 142 mmol/L Normal 136-144 [facility] Comment on above: Order Comment: Jordyn finch Type: BLOOD SPECIMENOrdering Facility: [facility] Address: [address] [place] [address] Performed By: #### 2 4321-2 ####BERRIOS LABORATORYCLIA [id number] [address] [place] Urea nitrogen [Mass/Vol] 32 mg/dL High 7- [facility] Comment on above: Order Comment: Speci men Type: BLOOD SPECIMENOrdering Facility: [facility] Address: [address] [place] [address] Performed By: #### 2 4321-2 ####[place] LABORATORYCLIA [id number] [place] [address] [place] CBC W Auto Differential pane l (Bld)on 11-25-2022 Basophils (Bld) [#/Vol] 0.05 10*3/uL <0.11 k/uL [facility] Basophils/100 WBC (Bld) 0.7 % [facility] Differential cell count method Nom (Bld) Auto [facility] Eosinophils (Bld) [#/Vol] 0.21 10*3/uL <0.46 k/uL [facility] Eosinophils/100 WBC (Bld) 3.1 % [facility] Erythrocyte distribution width (RBC) [Ratio] 13.8 % 11.5 - 15.0 % [facility] Hematocrit (Bld) [Volume fraction] 37.0 % 36.0 - 46.0 % [facility] Hemoglobin (Bld) [Mass/Vol] 12.1 g/dL 11.5 - 15.5 g/dL [facility] Immature granulocytes (Bld) [#/Vol] 0.03 10*3/uL <0.10 k/uL [facility] Immature granulocytes/100 WBC (Bld) 0.4 % [facility] Lymphocytes (Bld) [#/Vol] 2.05 10*3/uL 1.00 - 4.00 k/uL [facility] Lymphocytes/100 WBC (Bld) 30.4 % [facility] MCH (RBC) [Entitic mass] 30.5 pg 26. 0 - 34.0 pg [facility] MCHC (RBC) [Mass/Vol] 32.7 g/dL 30.5 - 36.0 g/dL [facility] MCV (RBC) [Entitic vol] 93.2 fL 80.0 - 100.0 fL [facility] Monocytes (Bld) [#/Vol] 0.69 10*3/uL <0.87 k/uL [facility] Monocytes/100 WBC (Bld) 10.2 % [facility] Neut[facility]ils (Bld[facility] [#/Vol] 3.71 10*3/uL 1.45 - 7.50 k/uL [facility] Neutrophils/100 WBC (Bld) 55.2 % [facility] Nucleated RBC (Bld) [#/Vol] <0.01 k/uL [facility] Nucleated RBC/100 WBC (Bld) [Ratio] 0.0 /100 WBC [facility] Platelet mean volume (Bld) [Entitic vol] 9.7 fL 9.0 - 12.7 fL [facility] Platelets (Bld) [#/Vol] 264 10*3/uL 150 - 400 k/uL [facility] RBC (Bld) [#/Vol] 3.97 10*6/uL 3.90 - 5.2 0 m/uL [facility] WBC (Bld) [#/Vol] 6.74 10*3/uL 3.70 - 11. 00 k/uL [facility] Basophils (Bld) [#/Vol] 0.05 10*3/uL Normal <0.[address] [facility] Comment on above: Order Comment: Speci men Type: BLOOD SPECIMENOrdering Facility: [facility] Address: [address] [place] [address] Performed By: #### 5 7021-8 ####BERRIOS LABORATORYCLIA [id number] [place] [address] [place] Basophils/100 WBC (Bld) 0.7 % Normal [facility] Comment on above: Order Comment: Speci men Type: BLOOD SPECIMENOrdering Facility: [facility] Address: [address] [place] [address] Performed By: #### 5 7021-8 ####BERRIOS LABORATORYCLIA [id number] [place] [address] [place] Differential cell count method Nom (Bld) Auto Normal [facility] Comment on above: Order Comment: Speci men Type: BLOOD SPECIMENOrdering Facility: [facility] Address: [address] [place] [address] Performed By: #### 5 7021-8 ####BERRIOS LABORATORYCLIA [id number] [place] [address] [place] Eosinophils (Bld) [#/Vol] 0.21 10*3/uL Normal <0.[address] [facility] Comment on above: Order Comment: Speci men Type: BLOOD SPECIMENOrdering Facility: [facility] Address: [address] [place] [address] Performed By: #### 5 7021-8 ####BERRIOS LABORATORYCLIA [id number] [place] [address] [place] Eosinophils/100 WBC (Bld) 3.1 % Normal [facility] Comment on above: Order Comment: Speci men Type: BLOOD SPECIMENOrdering Facility: [facility] Address: [address] [place] [address] Performed By: #### 5 7021-8 ####BERRIOS LABORATORYCLIA [id number] [address] [place] Erythrocyte distribution width (RBC) [Ratio] 13.8 % Normal 11.5-15.[address] [facility] Comment on above: Order Comment: Speci men Type: BLOOD SPECIMENOrdering Facility: [facility] Address: [address] [place] [address] Performed By: #### 5 7021-8 ####BERRIOS LABORATORYCLIA [id number] [address] [place] Hematocrit (Bld) [Volume fraction] 37.0 % Normal 36.0-46.[address] [facility] Comment on above: Order Comment: Speci men Type: BLOOD SPECIMENOrdering Facility: [facility] Address: [address] [place] [address] Performed By: #### 5 7021-8 ####BERRIOS LABORATORYCLIA [id number] [address] Hemoglobin (Bld) [Mass/Vol] 12.1 g/dL Normal 11.5-15.[address] [facility] Comment on above: Order Comment: Speci men Type: BLOOD SPECIMENOrdering Facility: [facility] Address: [address] [place] [address] Performed By: #### 5 7021-8 ####BERRIOS LABORATORYCLIA [id number] [address] [place] Immature granulocytes (Bld) [#/Vol] 0.03 10*3/uL Normal <0.[address] [facility] Comment on above: Order Comment: Speci men Type: BLOOD SPECIMENOrdering Facility: [facility] Address: [address] [place] [address] Performed By: #### 5 7021-8 ####BERRIOS LABORATORYCLIA [id number] [address] Immature granulocytes/100 WBC (Bld) 0.4 % Normal [facility] Comment on above: Order Comment: Speci men Type: BLOOD SPECIMENOrdering Facility: [facility] Address: [address] [place] [address] Performed By: #### 5 7021-8 ####BERRIOS LABORATORYCLIA [id number] [address] Lymphocytes (Bld) [#/Vol] 2.05 10*3/uL Normal 1.00-4.[address] [facility] Comment on above: Order Comment: Speci men Type: BLOOD SPECIMENOrdering Facility: [facility] Address: [address] [place] [address] Performed By: #### 5 7021-8 ####BERRIOS LABORATORYCLIA [id number] [address] Lymphocytes/100 WBC (Bld) 30.4 % Normal [facility] Comment on above: Order Comment: Speci men Type: BLOOD SPECIMENOrdering Facility: [facility] Address: [address] [place] [address] Performed By: #### 5 7021-8 ####BERRIOS LABORATORYCLIA [id number] [place] [address] [place] MCH (RBC) [Entitic mass] 30.5 pg Normal 26.0-34.0 [facility] Comment on above: Order Comment: Speci men Type: BLOOD SPECIMENOrdering Facility: [facility] Address: [address] [place] [address] Performed By: #### 5 7021-8 ####BERRIOS LABORATORYCLIA [id number] [address] [place] MCHC (RBC) [Mass/Vol] 32.7 g/dL Normal 30.5-36.0 [facility] Comment on above: Order Comment: Speci men Type: BLOOD SPECIMENOrdering Facility: [facility] Address: [address] [place] [address] Performed By: #### 5 7021-8 ####BERRIOS LABORATORYCLIA [id number] [place] [address] [place] MCV (RBC) [Entitic vol] 93.2 fL Normal 80.0-100.0 [facility] Comment on above: Order Comment: Speci men Type: BLOOD SPECIMENOrdering Facility: [facility] Address: [address] [place] [address] Performed By: #### 5 7021-8 ####BERRIOS LABORATORYCLIA [id number] [place] [address] [place] Monocytes (Bld) [#/Vol] 0.69 10*3/uL Normal <0.[address] [facility] Comment on above: Order Comment: Speci men Type: BLOOD SPECIMENOrdering Facility: [facility] Address: [address] [place] [address] Performed By: #### 5 7021-8 ####BERRIOS LABORATORYCLIA [id number] [address] Monocytes/100 WBC (Bld) 10.2 % Normal [facility] Comment on above: Order Comment: Speci men Type: BLOOD SPECIMENOrdering Facility: [facility] Address: [address] [place] [address] Performed By: #### 5 7021-8 ####BERRIOS LABORATORYCLIA [id number] [place] [address] [facility] [place] Neutrophils (Bld) [#/Vol] 3.71 10*3/uL Normal 1.45-7.[address] [facility] Comment on above: Order Comment: Speci men Type: BLOOD SPECIMENOrdering Facility: [facility] Address: [address] [place] [address] Performed By: #### 5 7021-8 ####BERRIOS LABORATORYCLIA [id number] [place] [address] [place] Neutrophils/100 WBC (Bld) 55.2 % Normal [facility] Comment on above: Order Comment: Speci men Type: BLOOD SPECIMENOrdering Facility: [facility] Address: [address] [place] [address] Performed By: #### 5 7021-8 ####BERRIOS LABORATORYCLIA [id number] [place] [address] [place] Nucleated RBC (Bld) [#/Vol] 10*3/uL Normal <0.[address] [facility] Comment on above: Order Comment: Speci men Type: BLOOD SPECIMENOrdering Facility: [facility] Address: [address] [place] [address] Performed By: #### 5 7021-8 ####BERRIOS LABORATORYCLIA [id number] [place] [address] [place] Nucleated RBC/100 WBC (Bld) [Ratio] 0.0 /100 WBC Normal [facility] Comment on above: Order Comment: Speci men Type: BLOOD SPECIMENOrdering Facility: [facility] Address: [address] [place] [address] Performed By: #### 5 7021-8 ####BERRIOS LABORATORYCLIA [id number] [place] [id number] [place] Platelet mean volume (Bld) [Entitic vol] 9.7 fL Normal 9.0-12.[address] [facility] Comment on above: Order Comment: Speci men Type: BLOOD SPECIMENOrdering Facility: [facility] Address: [address] [place] [address] Performed By: #### 5 7021-8 ####BERRIOS LABORATORYCLIA [id number] [place] [address] [place] Platelets (Bld) [#/Vol] 264 10*3/uL Normal 150-[address] [facility] Comment on above: Order Comment: Speci men Type: BLOOD SPECIMENOrdering Facility: [facility] Address: [address] [place] [address] Performed By: #### 5 7021-8 ####BERRIOS LABORATORYCLIA [id number] [place] [id number] [place] RBC (Bld) [#/Vol] 3.97 10*6/uL Normal 3.90-5.20 [facility] Comment on above: Order Comment: Speci men Type: BLOOD SPECIMENOrdering Facility: [facility] Address: [address] [place] [address] Performed By: #### 5 7021-8 ####BERRIOS LABORATORYCLIA [id number] [address] [place] WBC (Bld) [#/Vol] 6.74 10*3/uL Normal 3.70-11.00 [facility] Comment on above: Order Comment: Speci men Type: BLOOD SPECIMENOrdering Facility: [facility] Address: [address] [place] [address] Performed By: #### 5 7021-8 ####BERRIOS LABORATORYCLIA [id number] [place] [id number] [place] Basic metabolic 2000 panelon 11-21-2022 Anion gap [Moles/Vol] 9 mmol/L 9 - 18 mmol/L [facility] Calcium [Mass/Vol] 9.3 mg/dL 8.5 - 10. 2 mg/dL [facility] Chloride [Moles/Vol] 107 mmol/L High 97 - 10 5 mmol/L [facility] CO2 [Moles/Vol] 23 mmol/L 22 - 30 mmol/L [facility] Creatinine [Mass/Vol] 1.13 mg/dL High 0.58 - 0.96 mg/dL [facility] Estimated Glomerular Filtration Rate 50 mL/min/1.73m Low >=60 mL/min/1.73m [facility] Glucose [Mass/Vol] 99 mg/dL 74 - 99 mg/dL [facility] Potassium [Moles/Vol] 4.1 mmol/L 3.7 - 5.1 mmol/L [facility] Sodium [Moles/Vol] 139 mmol/L 136 - 144 mmol/L [facility] Urea nitrogen [Mass/Vol] 43 mg/dL High 7 - 21 mg/d L [facility] CBC W Auto Differential pane l (Bld)on 11-21-2022 Basophils (Bld) [#/Vol] 0.05 10*3/uL <0.11 k/uL [facility] Basophils/100 WBC (Bld) 0.9 % C [facility] Differential cell count method Nom (Bld) Auto [facility] Eosinophils (Bld) [#/Vol] 0.16 10*3/uL <0.46 k/uL [facility] Eosinophils/100 WBC (Bld) 2.8 % [facility] Erythrocyte distribution width (RBC) [Ratio] 13.6 % 11.5 - 15.0 % [facility] Hematocrit (Bld) [Volume fraction] 36.2 % 36.0 - 46.0 % [facility] Hemoglobin (Bld) [Mass/Vol] 11.5 g/dL 11.5 - 15.5 g/dL [facility] Immature granulocytes (Bld) [#/Vol] 0.04 10*3/uL <0.10 k/uL [facility] Immature granulocytes/100 WBC (Bld) 0.7 % [facility] Lymphocytes (Bld) [#/Vol] 1.79 10*3/uL 1.00 - 4.00 k/uL [facility] Lymphocytes/100 WBC (Bld) 31.3 % [facility] MCH (RBC) [Entitic mass] 30.1 pg 26. 0 - 34.0 pg [facility] MCHC (RBC) [Mass/Vol] 31.8 g/dL 30.5 - 36.0 g/dL [facility] MCV (RBC) [Entitic vol] 94.8 fL 80.0 - 100.0 fL [facility] Monocytes (Bld) [#/Vol] 0.62 10*3/uL <0.87 k/uL [facility] Monocytes/100 WBC (Bld) 10.8 % C [facility] Neutrophils (Bld) [#/Vol] 3.06 10*3/uL 1.45 - 7.50 k/uL [facility] Neutrophils/100 WBC (Bld) 53.5 % [facility] Nucleated RBC (Bld) [#/Vol] <0.01 k/uL [facility] Nucleated RBC/100 WBC (Bld) [Ratio] 0.0 /100 WBC [facility] Platelet mean volume (Bld) [Entitic vol] 10.0 fL 9.0 - 12.7 fL [facility] Platelets (Bld) [#/Vol] 239 10*3/uL 150 - 400 k/uL [facility] RBC (Bld) [#/Vol] 3.82 10*6/uL Low 3.90 - 5.2 0 m/uL [facility] WBC (Bld) [#/Vol] 5.72 10*3/uL 3.70 - 11. 00 k/uL [facility] Basic metabolic 2000 panelon 11-18-2022 Anion gap [Moles/Vol] 12 mmol/L 9 - 18 mmol/L [facility] Calcium [Mass/Vol] 9.3 mg/dL 8.5 - 10. 2 mg/dL [facility] Chloride [Moles/Vol] 105 mmol/L 97 - 10 5 mmol/L [facility] CO2 [Moles/Vol] 24 mmol/L 22 - 30 mmol/L [facility] Creatinine [Mass/Vol] 1.22 mg/dL High 0.58 - 0.96 mg/dL [facility] Estimated Glomerular Filtration Rate 45 mL/min/1.73m Low >=60 mL/min/1.73m [facility] Glucose [Mass/Vol] 90 mg/dL 74 - 99 mg/dL [facility] Potassium [Moles/Vol] 3.8 mmol/L 3.7 - 5.1 mmol/L [facility] Sodium [Moles/Vol] 141 mmol/L 136 - 144 mmol/L [facility] Urea nitrogen [Mass/Vol] 34 mg/dL High 7 - 21 mg/d L [facility] CBC panel Auto (Bld)on 11-18 Erythrocyte distribution width (RBC) [Ratio] 13.7 % 11.5 - 15.0 % [facility] Hematocrit (Bld) [Volume fraction] 39.9 % 36.0 - 46.0 % [facility] Hemoglobin (Bld) [Mass/Vol] 12.7 g/dL 11.5 - 15.5 g/dL [facility] MCH (RBC) [Entitic mass] 30.1 pg 26. 0 - 34.0 pg [facility] MCHC (RBC) [Mass/Vol] 31.8 g/dL 30.5 - 36.0 g/dL [facility] MCV (RBC) [Entitic vol] 94.5 fL 80.0 - 100.0 fL [facility] Nucleated RBC (Bld) [#/Vol] <0.01 k/uL [facility] Platelet mean volume (Bld) [Entitic vol] 9.8 fL 9.0 - 12.7 fL [facility] Platelets (Bld) [#/Vol] 240 10*3/uL 150 - 400 k/uL [facility] RBC (Bld) [#/Vol] 4.22 10*6/uL 3.90 - 5.2 0 m/uL [facility] WBC (Bld) [#/Vol] 6.40 10*3/uL 3.70 - 11. 00 k/uL [facility] Vital Signs Date Time Vital Sign Value Performing Clinician Facility 05-13-2024 14:32-0500 Body height 162.6 cm Apurva Bruno APRN.[employer] Work Phone: [facility] 05-13-2024 14:32-0500 Body mass index (BMI) [Ratio] 30.38 kg/m2 Apurva Bruno PARALEGAL SUPERVISOR.[employer] Work Phone: [facility] 05-13-2024 14:32-0500 Body weight 80.29 kg Apurva Bruno PARALEGAL SUPERVISOR.[employer] Work Phone: [facility] Comment on above: per last visit, pt in wheelchair 05-13-2024 14:32-0500 Diastolic blood pressure 83 mm[Hg] Apurva Bruno APRN.[employer] Work Phone: [facility] 05-13-2024 14:32-0500 Heart rate 68 /min Apurva Bruno PARALEGAL SUPERVISOR.[employer] Work Phone: [facility] 05-13-2024 14:32-0500 Systolic blood pressure 146 mm[Hg] Apurva Hollaender PARALEGAL SUPERVISOR.[employer] Work Phone: [facility] 11-21-2023 14:04-0400 Body height 162.6 cm Lashanda Clarkt PARALEGAL SUPERVISOR.[employer] Work Phone: [facility] 11-21-2023 14:04-0400 Diastolic blood pressure 83 mm[Hg] Lashanda Bernhart PARALEGAL SUPERVISOR.[employer] Work Phone: [facility] 11-21-2023 14:04-0400 Heart rate 85 /min Lashanda Josehart PARALEGAL SUPERVISOR.[employer] Work Phone: [facility] 11-21-2023 14:04-0400 SaO2% (BldA) [Mass fraction] 98 % Lashanda Copehart PARALEGAL SUPERVISOR.[employer] Work Phone: [facility] 11-21-2023 14:04-0400 Systolic blood pressure 140 mm[Hg] Lashanda Josehart PARALEGAL SUPERVISOR.[employer] Work Phone: [facility] 11-12-2023 13:16-0400 Body height 162.6 cm Apurva Hollaender PARALEGAL SUPERVISOR.[employer] Work Phone: [facility] 11-12-2023 13:16-0400 Body mass index (BMI) [Ratio] 30.38 kg/m2 Apurva Hollaender PARALEGAL SUPERVISOR.[employer] Work Phone: [facility] 11-12-2023 13:16-0400 Body weight 80.29 kg Apurva Hollaender PARALEGAL SUPERVISOR.[employer] Work Phone: [facility] 11-12-2023 13:16-0400 Diastolic blood pressure 49 mm[Hg] Apurva Hollaender PARALEGAL SUPERVISOR.[employer] Work Phone: [facility] 11-12-2023 13:16-0400 Heart rate 62 /min Apurva Hollaender PARALEGAL SUPERVISOR.[employer] Work Phone: [facility] 11-12-2023 13:16-0400 Systolic blood pressure 122 mm[Hg] Apurva Hollaender PARALEGAL SUPERVISOR.[employer] Work Phone: [facility] 04-14-2023 15:08-0400 Body temperature 97.9 [degF] Lashanda Josehart PARALEGAL SUPERVISOR.[employer] Work Phone: [facility] 04-14-2023 15:08-0400 Diastolic blood pressure 60 mm[Hg] Lashanda Bernhart PARALEGAL SUPERVISOR.[employer] Work Phone: [facility] 04-14-2023 15:08-0400 Heart rate 66 /min Lashanda Josehart PARALEGAL SUPERVISOR.[employer] Work Phone: [facility] 04-14-2023 15:08-0400 SaO2% (BldA) [Mass fraction] 98 % Lashanda Josehart PARALEGAL SUPERVISOR.[employer] Work Phone: [facility] 04-14-2023 15:08-0400 Systolic blood pressure 112 mm[Hg] Lashanda Bernhart PARALEGAL SUPERVISOR.[employer] Work Phone: [facility] 02-13-2023 13:42-0400 Body height 162.6 cm Apurva Hollleighannnder PARALEGAL SUPERVISOR.[employer] Work Phone: [facility] 02-13-2023 13:42-0400 Body weight 80.29 kg Apurvajordi Cresponder PARALEGAL SUPERVISOR.[employer] Work Phone: [facility] 02-13-2023 13:42-0400 Diastolic blood pressure 54 mm[Hg] Apurva Hollaender PARALEGAL SUPERVISOR.[employer] Work Phone: [facility] 02-13-2023 13:42-0400 Heart rate 75 /min Apurva Hollaender PARALEGAL SUPERVISOR.[employer] Work Phone: [facility] 02-13-2023 13:42-0400 Systolic blood pressure 105 mm[Hg] Apurva Hollaender PARALEGAL SUPERVISOR.[employer] Work Phone: [facility] 02-03-2023 13:05-0400 Body height 165.1 cm Griselda Murphy PA-C Work Phone: [facility] 02-03-2023 13:05-0400 Body weight 82.56 kg Griselda Razois PA-C Work Phone: [facility] 02-03-2023 13:05-0400 Diastolic blood pressure 78 mm[Hg] Griselda Razois PA-C Work Phone: [facility] 02-03-2023 13:05-0400 Heart rate 77 /min Griselda Razois PA-C Work Phone: [facility] 02-03-2023 13:05-0400 Systolic blood pressure 127 mm[Hg] Griselda Razois PA-C Work Phone: [facility] 01-31-2023 13:36-0400 Body height 165.1 cm Lashanda Albrecht PARALEGAL SUPERVISOR.[employer] Work Phone: [facility] 01-31-2023 13:36-0400 Body weight 75.3 kg Lashanda Albrecht PARALEGAL SUPERVISOR.[employer]ANT Work Phone: [facility] 01-31-2023 13:36-0400 Diastolic blood pressure 56 mm[Hg] Lashanda Albrecht PARALEGAL SUPERVISOR.[employer]SULTANT Work Phone: [facility] 01-31-2023 13:36-0400 Heart rate 77 /min Lashanda Albrecht PARALEGAL SUPERVISOR.[employer] Work Phone: [facility] 01-31-2023 13:36-0400 SaO2% (BldA) [Mass fraction] 97 % Lashanda Albrecht PARALEGAL SUPERVISOR.[employer] Work Phone: [facility] 01-31-2023 13:36-0400 Systolic blood pressure 114 mm[Hg] Lashanda Albrecht PARALEGAL SUPERVISOR.[employer] Work Phone: [facility] 01-13-2023 10:44-0400 Body temperature 98.01 [degF] Radha Ferreira PARALEGAL SUPERVISOR.[employer] Work Phone: [facility] 01-13-2023 10:44-0400 Diastolic blood pressure 56 mm[Hg] Radha Ferreira PARALEGAL SUPERVISOR.[employer]ANT Work Phone: [facility] 01-13-2023 10:44-0400 Heart rate 80 /min Radha Ferreira PARALEGAL SUPERVISOR.[employer]ANT Work Phone: [facility] 01-13-2023 10:44-0400 Respiratory rate 18 /min Radha Ferreira PARALEGAL SUPERVISOR.[employer]ANT Work Phone: [facility] 01-13-2023 10:44-0400 SaO2% (BldA) [Mass fraction] 96 % Radha Ferreira PARALEGAL SUPERVISOR.RUBY ON RAILS CONSULTANT Work Phone: [facility] 01-13-2023 10:44-0400 Systolic blood pressure 110 mm[Hg] Radha Ferreira PARALEGAL SUPERVISOR.RUBY ON RAILS CONSULTANT Work Phone: [facility] 01-10-2023 13:13-0400 Body height 165.1 cm Lashanda Albrecht PARALEGAL SUPERVISOR.RUBY ON RAILS CONSULTANT Work Phone: [facility] 01-10-2023 13:13-0400 Body weight 75.3 kg Lashanda Albrecht PARALEGAL SUPERVISOR.RUBY ON RAILS CONSULTANT Work Phone: [facility] 01-10-2023 13:13-0400 Diastolic blood pressure 73 mm[Hg] Lashanda Albrecht PARALEGAL SUPERVISOR.RUBY ON RAILS CONSULTANT Work Phone: [facility] 01-10-2023 13:13-0400 Heart rate 65 /min Lashanda Albrecht PARALEGAL SUPERVISOR.RUBY ON RAILS CONSULTANT Work Phone: [facility] 01-10-2023 13:13-0400 SaO2% (BldA) [Mass fraction] 96 % Lashanda Albrecht PARALEGAL SUPERVISOR.RUBY ON RAILS CONSULTANT Work Phone: [facility] 01-10-2023 13:13-0400 Systolic blood pressure 111 mm[Hg] Lashanda Bernradhat PARALEGAL SUPERVISOR.RUBY ON RAILS CONSULTANT Work Phone: [facility] 01-02-2023 21:36-0400 Body temperature 97.59 [degF] Radha Ferreira PARALEGAL SUPERVISOR.RUBY ON RAILS CONSULTANT Work Phone: [facility] 01-02-2023 21:36-0400 Diastolic blood pressure 76 mm[Hg] Radha Ferreira PARALEGAL SUPERVISOR.RUBY ON RAILS CONSULTANT Work Phone: [facility] 01-02-2023 21:36-0400 Heart rate 70 /min Radha Ferreira PARALEGAL SUPERVISOR.RUBY ON RAILS CONSULTANT Work Phone: [facility] 01-02-2023 21:36-0400 Respiratory rate 18 /min Radha Ferreira PARALEGAL SUPERVISOR.RUBY ON RAILS CONSULTANT Work Phone: [facility] 01-02-2023 21:36-0400 SaO2% (BldA) [Mass fraction] 96 % Radha Ferreira PARALEGAL SUPERVISOR.RUBY ON RAILS CONSULTANT Work Phone: [facility] 01-02-2023 21:36-0400 Systolic blood pressure 132 mm[Hg] Radha Ferreira PARALEGAL SUPERVISOR.RUBY ON RAILS CONSULTANT Work Phone: [facility] 12-27-2022 21:53-0400 Body temperature 97.59 [degF] Radha Ferreira PARALEGAL SUPERVISOR.RUBY ON RAILS CONSULTANT Work Phone: [facility] 12-27-2022 21:53-0400 Diastolic blood pressure 65 mm[Hg] Radha Ferreira PARALEGAL SUPERVISOR.RUBY ON RAILS CONSULTANT Work Phone: [facility] 12-27-2022 21:53-0400 Heart rate 88 /min Radha Ferreira PARALEGAL SUPERVISOR.RUBY ON RAILS CONSULTANT Work Phone: [facility] 12-27-2022 21:53-0400 Respiratory rate 16 /min Radha Ferreira PARALEGAL SUPERVISOR.RUBY ON RAILS CONSULTANT Work Phone: [facility] 12-27-2022 21:53-0400 SaO2% (BldA) [Mass fraction] 95 % Radha Ferreira PARALEGAL SUPERVISOR.RUBY ON RAILS CONSULTANT Work Phone: [facility] 12-27-2022 21:53-0400 Systolic blood pressure 113 mm[Hg] Radha Ferreira PARALEGAL SUPERVISOR.RUBY ON RAILS CONSULTANT Work Phone: [facility] 12-23-2022 21:34-0400 Body temperature 97.59 [degF] Radha Ferreira PARALEGAL SUPERVISOR.RUBY ON RAILS CONSULTANT Work Phone: [facility] 12-23-2022 21:34-0400 Diastolic blood pressure 63 mm[Hg] Radha Culverand PARALEGAL SUPERVISOR.RUBY ON RAILS CONSULTANT Work Phone: [facility] 12-23-2022 21:34-0400 Heart rate 74 /min Radha Ferreira PARALEGAL SUPERVISOR.RUBY ON RAILS CONSULTANT Work Phone: [facility] 12-23-2022 21:34-0400 Respiratory rate 18 /min Radha Ferreira PARALEGAL SUPERVISOR.RUBY ON RAILS CONSULTANT Work Phone: [facility] 12-23-2022 21:34-0400 SaO2% (BldA) [Mass fraction] 96 % Radha Ferreira PARALEGAL SUPERVISOR.RUBY ON RAILS CONSULTANT Work Phone: [facility] 12-23-2022 21:34-0400 Systolic blood pressure 129 mm[Hg] Radha Ferreira PARALEGAL SUPERVISOR.RUBY ON RAILS CONSULTANT Work Phone: [facility] 12-19-2022 11:34-0400 Body height 165.1 cm Apurvajordi Chander PARALEGAL SUPERVISOR.RUBY ON RAILS CONSULTANT Work Phone: [facility] 12-19-2022 11:34-0400 Body weight 87.09 kg Apurvajordi Chander PARALEGAL SUPERVISOR.RUBY ON RAILS CONSULTANT Work Phone: [facility] 12-19-2022 11:34-0400 Diastolic blood pressure 56 mm[Hg] Apurva Cresponder PARALEGAL SUPERVISOR.RUBY ON RAILS CONSULTANT Work Phone: [facility] 12-19-2022 11:34-0400 Heart rate 65 /min Apurva Chander PARALEGAL SUPERVISOR.RUBY ON RAILS CONSULTANT Work Phone: [facility] 12-19-2022 11:34-0400 Systolic blood pressure 110 mm[Hg] Apurva Hollaender PARALEGAL SUPERVISOR.RUBY ON RAILS CONSULTANT Work Phone: [facility] Encounters Encounter Date Encounter Type Care Provider Facility Start: 12-08-2024 [facility] Start: 11-12-2024 [facility] Start: 11-12-2024 Registered Referred Lashanda herring MD -[facility] Start: 11-08-2024 Registered Referred Lashanda herring MD -[facility] Start: 11-08-2024 End: 11-08-2024 ambulatory Lashanda HAWK Facility:[facility] Start: 11-01-2024 End: 11-01-2024 ambulatory Marcos Екатеринаwinsome HAWK [facility] Work Phone: Start: 11-01-2024 End: 11-01-2024 Departed Referred Marcos Brown -[facility] Start: 11-01-2024 End: 11-01-2024 ambulatory Marcos HAWK Facility:[facility] Start: 10-27-2024 Registered Referred Lashanda HeardEmelle [facility] Start: 10-27-2024 End: 10-27-2024 ambulatory Lashanda HAWK Facility:[facility] Start: 10-06-2024 End: 10-06-2024 Departed Referred Lashanda Stone MD -[facility] Start: 10-06-2024 Registered Referred Lashanda herring MD -[facility] Start: 10-06-2024 End: 10-06-2024 ambulatory Lashanda HAWK Facility:[facility] Start: 10-01-2024 End: 10-01-2024 ambulatory Marcos HAWK [facility] Work Phone: Start: 10-01-2024 End: 10-01-2024 Departed Referred Lashanda Stone MD -[facility] Start: 10-01-2024 Registered Referred Lashanda HeardEmelle [facility] Start: 10-01-2024 End: 10-01-2024 ambulatory Lashanda HAWK Facility:[facility] Start: 09-07-2024 End: 09-07-2024 ambulatory Marcos HAWK [facility] Work Phone: Start: 09-07-2024 End: 09-07-2024 [facility] Start: 09-07-2024 Registered Referred [facility] Start: 09-07-2024 End: 09-07-2024 ambulatory [facility] Facility:[facility] Start: 08-04-2024 End: 08-04-2024 ambulatory [facility] Work Phone: [facility] Work Phone: Start: 08-04-2024 End: 08-04-2024 Departed Referred Marcos Екатеринаwinsome [facility] Start: 08-04-2024 End: 08-04-2024 ambulatory Marcos HAWK Facility:[facility] Start: 06-02-2024 ambulatory [facility] Facility:[facility] Start: 06-02-2024 Registered Referred [facility] Start: 05-13-2024 End: 05-13-2024 Patient encounter procedure Apurva Bruno APRN.CNP Work Phone: Cerebrovascular Comment on above: Aphasia as late effe ct of cerebrovascular accident (Primary Dx); Hemiparesis affecting right side as late effect of cerebrovascular accident (HCC); Intracranial atherosclerosis; Primary hypertension; Dyslipidemia, goal LDL below 70 Start: 05-13-2024 End: 05-13-2024 ambulatory EVIN GARCIA Facility:[facility] Start: 04-13-2024 End: 04-13-2024 ambulatory Marcos HAWK Facility:[facility] Start: 03-23-2024 End: 03-23-2024 ambulatory Marcos HAWK Facility:[facility] Start: 02-27-2024 ambulatory Marcos HAWK Faci lity:[facility] Start: 02-23-2024 End: 02-23-2024 ambulatory Marcos HAWK Facility:[facility] Start: 01-09-2024 ambulatory Marcos HAWK Faci lity:[facility] Start: 11-21-2023 End: 11-21-2023 ambulatory LASHANDA COPERADHABety Facility:[facility] Start: 11-21-2023 End: 11-21-2023 Patient encounter procedure Lashanda Albrecht PARALEGAL SUPERVISOR.RUBY ON RAILS CONSULTANT Work Phone: Urology Comment on above: Retention of urine ( Primary Dx); Urinary tract infection with hematuria, site unspecified Start: 11-12-2023 End: 11-12-2023 ambulatory EVIN Anitha MONR Facility:[facility] Start: 11-12-2023 End: 11-12-2023 Patient encounter procedure Apurva Bruno PARALEGAL SUPERVISOR.RUBY ON RAILS CONSULTANT Work Phone: Cerebrovascular Comment on above: Aphasia as late effe ct of cerebrovascular accident (Primary Dx); Hemiparesis affecting right side as late effect of cerebrovascular accident (HCC); Intracranial atherosclerosis; Primary hypertension; Dyslipidemia, goal LDL below 70; Persistent depressive disorder Start: 07-02-2023 End: 07-02-2023 ambulatory [facility] Work Phone: Start: 07-02-2023 End: 07-02-2023 Departed Referred [facility] [employer] Start: 06-26-2023 Registered Referred [facility] [employer] Start: 04-16-2023 End: 04-16-2023 ambulatory [facility] Work Phone: Start: 04-16-2023 End: 04-16-2023 Departed Referred [facility] [employer] Start: 04-14-2023 End: 04-14-2023 ambulatory LASHANDA ALBRECHT Facility:[facility] Start: 04-14-2023 End: 04-14-2023 Patient encounter procedure Lashanda Albrecht PARALEGAL SUPERVISOR.RUBY ON RAILS CONSULTANT Work Phone: Urology Comment on above: Retention of urine ( Primary Dx); Urinary tract infection with hematuria, site unspecified Start: 03-31-2023 End: 03-31-2023 Departed Referred [facility] [employer] Start: 03-31-2023 Registered Referred [facility] [employer] Start: 03-27-2023 End: 03-27-2023 ambulatory [facility] Work Phone: Start: 03-27-2023 End: 03-27-2023 Departed Referred [facility] Start: 03-27-2023 Registered Referred [facility] Start: 03-20-2023 End: 03-20-2023 Departed Referred [facility] Start: 03-20-2023 Registered Referred [facility] Start: 03-13-2023 End: 03-13-2023 ambulatory [facility] Work Phone: Start: 03-13-2023 End: 03-13-2023 Departed Referred [facility] Start: 02-13-2023 End: 02-13-2023 Patient encounter procedure Apurva Bruno APRN.RUBY ON RAILS CONSULTANT Work Phone: Cerebrovascular Comment on above: Arterial ischemic st roke (HCC) (Primary Dx); Right hemiparesis (HCC); Primary hypertension; Occlusion and stenosis of basilar artery; Dyslipidemia, goal LDL below 70 Start: 02-10-2023 Registered Referred [facility] Start: 02-03-2023 End: 02-03-2023 Patient encounter procedure Griselda Murphy PA-C Work Phone: [facility] Comment on above: Esophageal stricture (Primary Dx) Start: 01-31-2023 End: 02-01-2023 ambulatory LASHANDA ALBRECHT Facility:[facility] Start: 01-31-2023 End: 01-31-2023 Patient encounter procedure Lashanda Albrecht APRN.RUBY ON RAILS CONSULTANT Work Phone: Urology Comment on above: Retention of urine ( Primary Dx); Urinary tract infection with hematuria, site unspecified Start: 01-13-2023 ambulatory Radha LambertRUBY ON RAILS CONSULTANT Work Phone: [facility] Comment on above: 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 Start: 01-10-2023 End: 01-11-2023 ambulatory EVIN GARCIA Facility:[facility] Start: 01-10-2023 End: 01-10-2023 Patient encounter procedure Lashanda Albrecht DASHA.RUBY ON RAILS CONSULTANT Work Phone: Urology Comment on above: Transient cerebral i schemia, unspecified type (Primary Dx); Retention of urine; Urinary tract infection with hematuria, site unspecified Start: 01-08-2023 End: 01-08-2023 Subsequent hospital visit by physician Card Lab Stress [facility] Comment on above: Arterial ischemic st roke (HCC) [I63.9] Start: 01-02-2023 ambulatory Radha Lacy.RUBY ON RAILS CONSULTANT Work Phone: [facility] Comment on above: 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) (Primary Dx); Dysphasia; Benign essential HTN; Adjustment disorder with mixed anxiety and depressed mood; Acute urinary retention Start: 12-20-2022 End: 12-21-2022 ambulatory EVIN Anitha GARCIA Facility:[facility] Start: 12-19-2022 End: 12-19-2022 Patient encounter procedure Apurva Bruno APRN.RUBY ON RAILS CONSULTANT Work Phone: Cerebrovascular Comment on above: Arterial [...] with patient Myrna Reyes MD Work Phone: [facility] Procedures Date Procedure Procedure Detail Performing Clinician Start: 08-04-2024 Measurement of renal function Marcos HAWK Comment on above: GFR Calc Start: 05-13-2024 Follow-up visit Follow Up JURGEN BRUNO Start: 07-02-2023 Urine culture Start: 04-16-2023 Urine culture Start: 03-31-2023 Urine culture Start: 12-09-2022 Basic metabolic pane l calcium total Samy Thomas APRN Work Phone: Start: 12-05-2022 Basic metabolic pane l calcium total Samy Thomas APRN Work Phone: Start: 12-02-2022 Basic metabolic pane l calcium total Samy Thomas APRN Work Phone: Start: 11-28-2022 Basic metabolic pane l calcium total Samy Thomas PARALEGAL SUPERVISOR Work Phone: Start: 11-25-2022 Basic metabolic pane l calcium total Samy Thomas PARALEGAL SUPERVISOR Work Phone: Start: 11-21-2022 Basic metabolic pane l calcium total Samy Thomas PARALEGAL SUPERVISOR Work Phone: Start: 11-18-2022 Basic metabolic pane l calcium total Ran Mckeon DO Work Phone: Plan of Treatment Date Care Activity Detail Author Start: 12-09-2025 DIABETES SCREEN DIABETES SCREEN [facility] Start: 12-09-2025 Diabetes Screening Diabetes Screening [facility] Start: 11-19-2024 End: 11-19-2024 Patient encounter procedure 11/19/2024 2:00 PM EDT Office Visit Urology [address] [place] [address] Lashanda Albrecht, PARALEGAL SUPERVISOR.RUBY ON RAILS CONSULTANT [address] [place], [place] [id number] 1 year follow up Urology Comment on above: 1 year follow up Start: 11-11-2024 BP Controlled (<130/80) BP Controlled (<130/80) [facility] Start: 05-23-2024 End: 08-22-2024 Bacteria identified in Urine by Culture URINE CULTURE Microbiology Routine Urinary tract infection with hematuria, site unspecified Expected: 05/23/2024, Expires: 08/22/2024 [facility] Work Phone: Comment on above: Expected: 05/23/2024, Expires: Start: 05-13-2024 End: 05-13-2024 Patient encounter procedure 05/13/2024 2:30 PM EST Office Visit Cerebrovascular [address] [place] [address] Apurva Bruno, PARALEGAL SUPERVISOR.RUBY ON RAILS CONSULTANT [address] [address] 6 month follow up Cerebrovascular Comment on above: 6 month follow up Start: 04-14-2024 BP Controlled (<130/80) BP Controlled (<130/80) [facility] Start: 02-14-2024 BP CONTROLLED (<130/80) BP CONTROLLED (<130/80) [facility] Start: 02-04-2024 BP CONTROLLED (<130/80) BP CONTROLLED (<130/80) [facility] Start: 02-01-2024 BP CONTROLLED (<130/80) BP CONTROLLED (<130/80) [facility] Start: 01-14-2024 BP CONTROLLED (<130/80) BP CONTROLLED (<130/80) [facility] Start: 01-11-2024 BP CONTROLLED (<130/80) BP CONTROLLED (<130/80) [facility] Start: 12-28-2023 BP CONTROLLED (<130/80) BP CONTROLLED (<130/80) [facility] Start: 12-24-2023 BP CONTROLLED (<130/80) BP CONTROLLED (<130/80) [facility] Start: 11-21-2023 End: 11-21-2023 Patient encounter procedure 11/21/2023 1:45 PM EDT Office Visit Urology [address] [place] [address] Lashanda Albrecht, DASHA.RUBY ON RAILS CONSULTANT [address] [place] [address] 6 month f/u Urology Comment on above: 6 month f/u Start: 10-09-2023 Covid-19 Vaccine ( season) Covid-19 Vaccine () [facility] Start: 07-07-2023 Advance Directive Discussion Advance Directive Discussion [facility] Start: 07-07-2023 Behavioral Health Screening Behavioral Health Screening [facility] Start: 04-16-2023 End: 06-16-2023 Bacteria identified in Urine by Culture URINE CULTURE Microbiology Routine Retention of urine Expected: 04/16/2023, Expires: 06/16/2023 [facility] Work Phone: Comment on above: Expected: 04/16/2023, Expires: Start: 03-07-2023 Influenza vaccination [facility] Start: 02-18-2023 End: 04-20-2023 Lipid 1996 panel - Serum or Plasma LIPID PANEL BASIC Lab Routine Hyperlipidemia, unspecified hyperlipidemia type Expected: 02/18/2023, Expires: 04/20/2023 [facility] Work Phone: Comment on above: Expected: 02/18/2023, Expires: 3 Start: 01-10-2023 End: 03-12-2023 Bacteria identified in Urine by Culture URINE CULTURE Microbiology Routine Retention of urine Urinary tract infection with hematuria, site unspecified Expected: 01/10/2023, Expires: 03/12/2023 [facility] Work Phone: Comment on above: Expected: 01/10/2023, Expires: 3 Start: 07-07-2022 ADVANCE DIRECTIVE DISCUSSION ADVANCE DIRECTIVE DISCUSSION [facility] Start: 07-07-2022 DEPRESSION ASSESSMENT DEPRESSION ASSESSMENT [facility] Start: 2018 RSV Vaccine (1 - 1-dose 75+ series) RSV Vaccine (1 - 1-dose 75+ series) [facility] Start: 05-08-2017 Pneumococcal Vaccine: 65+ (2 of 2 - PPSV23 or PCV20) Pneumococcal Vaccine: 65+ (2 of 2 - PPSV23 or PCV20) [facility] Start: 02-08-2008 BONE DENSITY BONE DENSITY [facility] Start: 02-08-2008 Bone Density Screening Bone Density Screening [facility] Start: 02-08-2008 Pneumococcal Vaccine: 65+ (1 - PCV) Pneumococcal Vaccine: 65+ (1 - PCV) [facility] Start: 02-08-2008 PNEUMOCOCCAL: 65+ (1 - PCV) PNEUMOCOCCAL: 65+ (1 - PCV) [facility] Start: 02-08-2008 Screening for osteoporosis Bone Density Screening [facility] Start: 2003 RSV Vaccine (1 - 1-dose 60+ series) RSV Vaccine (1 - 1-dose 60+ series) [facility] Start: 1993 SHINGRIX VACCINE (1 of 2) SHINGRIX VACCINE (1 of 2) [facility] Start: 1962 Urine microalbumin profile [facility] Start: 08-04-1961 ANNUAL PCP TEAM CHRONIC DISEASE VISIT ANNUAL PCP TEAM CHRONIC DISEASE VISIT [facility] Start: 1961 Anxiety Screening Anxiety Screening [facility] Start: 1961 BP CONTROLLED (<130/80) BP CONTROLLED (<130/80) [facility] Start: 1961 Depression Screening Depression Screening [facility] Start: 1943 COVID-19 VACCINE (#1) COVID-19 VACCINE (#1) [facility] EVENT MONITOR EVENT MONITOR Ca rdiology Routine Arterial ischemic stroke (HCC) Transient cerebral ischemia, unspecified type Ordered: 12/19/2022 [facility] Work Phone: Comment on above: Ordered: 12/19/2022 Thanh post-voiding residual urine&/bladder cap US MSR POST-VOID RESID URINE Procedures Routine Retention of urine Ordered: 01/10/2023 [facility] Work Phone: Comment on above: Ordered: 01/10/2023 [facility] Immunizations Immunization Date Immunization Notes Care Provider Thelma taylor 05-08-2016 influenza virus vacc ine, unspecified formulation Lashanda Albrecht APRN.CNP Work Phone: [facility] Payers Date Payer Category Payer Self-pay 2009 Unknown [id number] 2009 Unknown [id number] 2008 Medicare MEDICARE MEDICAR E A AND B [id number] 2008-Present [phone] [address] [address] [place] [address] Medicare [id number] 2008 Unknown [id number] Unknown [id number] Unknown [id number] Unknown [id number] Unknown [id number] Unknown [id number] Unknown [id number] Unknown [id number] Unknown [id number] Unknown [id number] Unknown [id number] Unknown [id number] Unknown [id number] Unknown [id number] Unknown [id number] Unknown [id number] Social History Date Type Detail Facility Start: 11-10-2022 Tobacco smoking stat us VAIS Never smoked tobacco [facility] Start: 11-10-2022 Tobacco use and exposure Smokeless tobacco non-user [facility] Start: 11-10-2022 End: 05-13-2024 Alcohol intake Lifetime non-drinker (finding) [facility] Start: 1945 Sex Assigned At Not on file [facility] Start: 11-13-2022 History SDOH Financial 5 [facility] Start: 11-13-2022 History SDOH Food Worry 1 [facility] Start: 11-13-2022 History SDOH Transpo rt Med 2 [facility] Start: 11-11-2022 End: 01-10-2023 History of Social function [facility] Work Phone: Start: 11-11-2022 End: 01-10-2023 Tobacco use panel [facility] Work Phone: How hard is it for y ou to pay for the very basics like food, housing, medical care, and heating Not hard at all [facility] Work Phone: (I/We) worried wheth er (my/our) food would run out before (I/we) got money to buy more. Never true [facility] Work Phone: In the past 12 month s, was there a time when you were not able to pay the mortgage or rent on time? No [facility] [facility] Work Phone: Start: 1945 Sex Assigned At Female [facility] Tobacco smoking stat [facility] Unknown if ever smoked [facility] Work Phone: Start: 09-10-2024 End: 10-26-2024 Sex Female (finding) [facility] Clinical Notes 11-10-2022 to 05-13-2024 Patient InstructionsApurva Bruno APRN.CNP - 05/13/2024 2:30 PM ESTAddendum Note - Lashanda Albrecht APRN.[employer] CONSULTANT - 11/21/2023 2:31 PM EDTBLashanda tran APRN.[facility] - 11/21/2023 2:10 PM EDT Note Date & Type Note Facility 05-13-2024 Instructions Apurva Bruno APRN.JANICE - 05/13/2024 3:02 PM EST Images from the original note were not included. 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 No significant intracranial atherosclerosis of left anterior [...] if you have any questions Apurva Bruno [facility] Cerebrovascular [facility] Nurse Practitioner [place], [place] [address] Office: [phone] Appointments: [phone] Stroke Signs and Symptoms: *Stroke is a [...] diet rich in fruits and vegetables (https://www.nhlbi.nih.gov/educa tion/nuox-usrjou-cvlk) - Consider Mediterranean diet supplemented with nuts [...] of an exercise program by a health patient care specialist such as a physical therapist or cardiac [...] for their cardiovascular health Adapted from the [place] Heart Association/Welsh Stroke Association: 2021 Guideline for the Prevention of Stroke in Patients With Stroke and Transient Ischemic Attack documented in this encounter [facility] 05-13-2024 History of Presen t illness Narrative CEREBROVASCULAR CENTER Established Visit Consultation is requested by: No referring provider defined for this encounter. PCP: Evin Garcia ([facility]) [place] [address] CEREBROVASCULAR HISTORY Myrna Saravia is a 77 year old female presenting for hospital discharge follow up. Admitted to [facility] 11/10-11/16/22. From discharge summary: 77-year-old female presented [facility] for acute onset of right upper extremity and right lower extremity weakness. Then was called and she was presented to [facility] where telestroke was called. She had [...] -presents with her daughter Brooklynn -in [place], moved about a week ago- [facility] in [place] -aphasia and dysarthria improving -she still cannot [...] 11/12/23 -presents for follow up with her daughterBrooklynn -denies any new symptoms or clinical events -she still cannot move her right arm but her right leg continues to gain strength, can hold it in the air -she has sensation in her right leg and right side of face -they are unclear if she is still getting any PT or other therapy at [facility] where she's living -hasn't received her brace from [employer], though did get fitted for it before [...] 05/13/24 -presents for follow up with her daughter, [...] bedtime. MUCUS-CHEST CONGESTION 100 mg/5 mL syrup [employer] 10 billion cell -200 mg capsule [...] (CCF-MODIFIED): Embolic Stroke of Unknown Source Modified Clara Score: Score: 4 NIH Stroke Scale: LOC: [...] which included preparing to see the patient, nouf-zf-qnkb patient care, completing clinical documentation, performing a medically appropriate examination, counseling and educating the patient/family/caregiver, and care coordination (not separately reported) SIGNATURE Apurva Bruno APRN.CNP CC No referring provider defined for this encounter. Evin Garcia ([facility]) [address] [place] [address] documented in this encounter [facility] 05-13-2024 Note HNO ID: [id number] Author: APURVA BRUNO APRN.CNP Service: ? Author Type: Nurse Practitioner Type: Progress Notes Filed: 05/14/2024 11:01 Note Text: CEREBROVASCULAR CENTER Established Visit Consultation is requested by: No referring provider defined for this encounter. PCP: Evin Almazan) [address] [place] [address] CEREBROVASCULAR HISTORY Myrna Saravia is a 77 year old female presenting for hospital discharge follow up. Admitted to [facility] 11/10-11/16/22. From discharge summary: 77-year-old female presented [facility] for acute onset of right upper extremity and right lower extremity weakness. Then was called and she was presented to [facility] where telestroke was called. She had [...] received cardiac event monitor -started Remeron in [facility] for mood (crying, bouts of anger) [...] -presents with her daughter Brooklynn -[place], moved about a week ago- [facility] in [place] -aphasia and dysarthria improving -she still cannot [...] and the right (more content not included)... [facility] 11-21-2023 Note HNO ID: [id number] Author: LASHANDA ALBRECHT APRN.[employer] CONSULTANT Service: ? Author Type: Nurse Practitioner Type: Progress Notes Filed: 11/21/2023 14:31 Note Text: ESTABLISHED PATIENT OFFICE VISIT HISTORY OF PRESENT ILLNESS Myrna Saravia is a 78 year old female who presents today in f/u. 04/14/23: Patient with a h/o urinary retention, UTI, CVA. Patient presents today in f/u. Patient now at [facility]. Recent UTI on 04/02/23. Finished a [...] the [facility] Mostly has incontinence into her depends. Today's note: Patient with a h/o CVA, urinary retention, UTI. Patient is still residing at [facility]. Her last UTI was on 04/02/23. [...] (no units) Date Value 12/03/2022 Negative Specific Sumner, Ur (no units) Date Value 12/03/2022 >=1.030 [...] mL syrup chlorthalidone (HYGROTON) 25 mg tablet [facility] DIGESTIVE HEALTH 10 billion cell -200 [...] sooner if any issues. Lashanda Albrecht APRN.CNP [facility] 11-21-2023 Note Addended by: LASHANDA MITTAL on: 11/21/2023 02:31 PM Modules accepted: Orders [facility] 11-21-2023 Miscellaneous Notes Addended by: LASHANDA ALBRECHT on: 11/21/2023 02:31 PM Modules accepted: Orders documented in this encounter [facility] 11-21-2023 History of Presen t illness Narrative ESTABLISHED PATIENT OFFICE VISIT HISTORY OF PRESENT ILLNESS Myrna Saravia is a 78 year old female who presents today in f/u. 04/14/23: Patient with a h/o urinary retention, UTI, CVA. Patient presents today in f/u. Patient now at [facility]. Recent UTI on 04/02/23. Finished a [...] the [facility] Mostly has incontinence into her depends. Today's note: Patient with a h/o CVA, urinary retention, UTI. Patient is still residing at [facility]. Her last UTI was on 04/02/23. [...] (no units) Date Value 12/03/2022 Negative Specific Sumner, Ur (no units) Date Value 12/03/2022 >=1.030 [...] sooner if any issues. Lashanda Albrecht APRN.JANICE documented in this encounter [facility] 11-12-2023 Instructions Apurva Bruno APRN.CNP - 11/12/2023 1:28 PM EDT Images from the original note were not included. Regarding your visit with Nurse Practitioner Apurva Bruno today at the [facility] Cerebrovascular Center we discussed the following: [...] have any questions Apurva Bruno CNP Cerebrovascular [facility] Nurse Practitioner [place], [place] [address] Office: [phone] Appointments: [phone] Stroke Signs and Symptoms: *Stroke is a [...] eating plan - more information: https://www.heart.org/en/healthy -living/healthy-eating/eat-smart /nutrition-basics/ckt-bhki-pmc-l ifestyle-recommendations Smoking and Tobacco Use (including e-cigarettes) [...] regimen, may be considered Adopted from the Welsh Stroke Association Attack : A Guideline for Healthcare Professionals From the Welsh Heart Guidelines for the Prevention of Stroke in Patients With Stroke or Transient Ischemic - 2013 documented in this encounter [facility] 11-12-2023 History of Presen t illness Narrative CEREBROVASCULAR CENTER Established Visit Consultation is requested by: No referring provider defined for this encounter. PCP: Evin Garcia ([facility]) [place] [address] CEREBROVASCULAR HISTORY Myrna Saravia is a 77 year old female presenting for hospital discharge follow up. Admitted to [facility] 11/10-11/16/22. From discharge summary: 77-year-old female presented [facility] for acute onset of right upper extremity and right lower extremity weakness. Then was called and she was presented to [facility] where telestroke was called. She had [...] -presents with her daughter Brooklynn -[place], moved about a week ago- [facility] in [place] -aphasia and dysarthria improving -she still cannot [...] UTI, now recommending timed voids Office Visit 11/8/23 -presents for follow up with her daughter [...] getting any PT or other therapy at [facility] where she's living -hasn't received her brace from [employer], though did get fitted for it before [...] for constipation. chlorthalidone (HYGROTON) 25 mg tablet C[facility]LLE DIGESTIVE [...] TUBE route daily at bedtime. lactobacillus rhamnosus ([employer]LE) 10 billion cell capsule Take 1 capsule [...] Stroke of Undetermined etiology: Negative Evaluation Modified [place] Score: Score: 4 NIH Stroke Scale: LOC: [...] which included preparing to see the patient, abwr-mg-mbtq patient care, completing clinical documentation, performing a medically appropriate examination, and counseling and educating the patient/family/caregiver SIGNATURE Apurva Bruno APRN.[employer] CONSULTANT CC No referring provider defined for this encounter. Evin Garcia ([facility]) [address] [place] [address] documented in this encounter [facility] 11-12-2023 Note HNO ID: [id number] Author: APURVA BRUNO APRN.CNP Service: ? Author Type: Nurse Practitioner Type: Progress Notes Filed: 11/12/2023 14:25 Note Text: CEREBROVASCULAR CENTER Established Visit Consultation is requested by: No referring provider defined for this encounter. PCP: Evin Garcia () [address] [place] [address] CEREBROVASCULAR HISTORY Myrna Saravia is a 77 year old female presenting for hospital discharge follow up. Admitted to [facility] 11/10-11/16/22. From discharge summary: 77-year-old female presented [facility] for acute onset of right upper extremity and right lower extremity weakness. Then was called and she was presented to [facility] where telestroke was called. She had [...] -presents with her daughter Brooklynn -[place], moved about a week ago- [facility] in [place] -aphasia and dysarthria improving -she still cannot [...] Brooklynn -denies any (more content not included)... [facility] 04-15-2023 History of Past i llness Narrative Problem Noted Date Diagnosed Date Resolved Date Suspected stroke patient las t known to be well 2 to 3 hours ago 11/10/2022 11/10/2022 Stroke of uncertain pathology 11/10/2022 11/10/2022 documented as of this encounter (statuses as of 04/15/2023) [facility]10-09-2023 NoteHNO ID: [id number] Author: Lashanda Albrecht APRN.[employer] CONSULTANT Service: ? Author Type: Nurse Practitioner Type: Progress Notes Filed: 04/14/2023 3:56 PM Note Text: ESTABLISHED PATIENT OFFICE VISIT HISTORY OF PRESENT ILLNESS Myrna Saravia is a 78 year old female who presents today in f/u. Patient with a h/o urinary retention, UTI, CVA. Patient presents today in f/u. [facility] Recent UTI on 04/02/23. Finished [...] the [facility] Mostly has incontinence into her depends. [...] (no units) Date Value 12/03/2022 Negative Specific Sumner, Ur (no units) Date Value 12/03/2022 >=1.030 [...] at bedtime. cefdinir (OMNICEF) 300 mg capsule [employer] DIGESTIVE HEALTH 10 billion cell -200 mg [...] than half of todays over 40 minute lsbr-zf-kjuj office visit was spent [facility] coun[facility] Instructions* Patient Instructions* Lashanda Albrecht APRN.CNP - 04/14/2023 3:33 PM EDT Please recheck [...] call urology with any questions. Lashanda Albrecht APRN.CNP [phone] documented in this [facility]10-09-2023 History of Present illness Narrative* Lashanda Albrecht APRN.CNP - 04/14/2023 3:08 PM EDT ESTABLISHED PATIENT OFFICE VISIT HISTORY OF PRESENT ILLNESS Myrna Saravia is a 78 year old female who presents today in f/u. Patient with a h/o urinary retention, UTI, CVA. Patient presents today in f/u. Patient now at [facility]. Recent UTI on 04/02/23. Finished a [...] the [facility] Mostly has incontinence into her depends. [...] (no units) Date Value 12/03/2022 Negative Specific Sumner, Ur (no units) Date Value 12/03/2022 >=1.030 [...] at bedtime. cefdinir (OMNICEF) 300 mg capsule [employer] DIGESTIVE HEALTH 10 billion cell -200 mg [...] than half of todays over 40 minute iobm-ka-futx office visit was spent in counselling/coordination of care [facility] History of Past illness Narrative* Problem Noted Date Diagnosed Date Resolved Date Suspected stroke patient las t known to be well 2 to 3 hours ago 11/10/2022 11/10/2022 Stroke of uncertain pathology 11/10/2022 11/10/2022 documented as of this encounter (statuses as of 02/14/2023) [facility]08-10-2023 Instructions* Patient Instructions* Apurva Bruno APRN.CNP - 02/13/2023 2:51 PM EDT Images from the original note were not included. Regarding your visit with Nurse Practitioner Apurva Bruno today at the [facility] Cerebrovascular Center we discussed the following: [...] have any questions Apurva Bruno CNP Cerebrovascular [facility]ter Nurse Practitioner [place], [place] [address] Office: [phone] Appointments: [phone] Stroke Signs and Symptoms: *Stroke is a [...] these signs, don't delay! Immediately call 911, dishae emergency medical services (EMS) number so an [...] Hypertension) eating plan - more information: https://www.heart.org/en/healthy-living/healthy-eating/eat-smart/nutrition-basic s/szk-egcj-oty-lifestyle-recommendations Smoking and Tobacco Use (including e-cigarettes) - [...] regimen, may be considered Adopted from the [place] Stroke Association Attack : A Guideline for Healthcare Professionals Fromthe Welsh Heart Guidelines for the Prevention of Stroke in Patients With Stroke or Transient Ischemic - 2013 documented in this [facility] History of Present illness Narrative* Apurva Bruno APRN.CNP - 02/13/2023 2:00 PM EDT CEREBROVASCULAR CENTER Established Visit Consultation is requested by: No referring provider defined for this encounter. PCP: Evin Garcia ([place]) [address] [place] [address] CEREBROVASCULAR HISTORY Myrna Saravia is a 77 year old female presenting for hospital discharge follow up. Admitted to [facility] 11/10-11/16/22. From discharge summary: 77-year-old female presented [facility] for acute onset of right upper extremity and right lower extremity weakness. Then was called and she was presented to [facility] where telestroke was called. She had [...] -presents with her daughter Brooklynn -[place], moved about a week ago- [facility] in [place] -aphasia and dysarthria improving -she still cannot [...] twice daily. cefdinir (OMNICEF) 300 mg capsule [employer] DIGESTIVE HEALTH 10 billion cell -200 [...] touch. Coordination: Rapid alternating movements symmetric bilaterally. Qabmto-yd-zpwg without dysmetria bilaterally. Gait: deferred LABS Cholesterol: [...] Disease w/o Stroke Event: Intracranial Stenosis Modified Clara Score: Score: 4 IMPRESSION Acute infarcts left [...] which included preparing to see the patient, dfzc-ut-ngjo patient care, completing clinical documentation, obtaining and/or reviewing separately obtained history, performing a medically appropriate examination, counseling and educating the patient/family/caregiver, independently interpreting results (not separately reported), communicating results to the patient/family/caregiver, and care coordination (not separately reported) SIGNATURE Apurva Bruno APRN.[employer] CONSULTANT CC No referring provider defined for this encounter. Evin Garcia ([facility]) [address] [place] [address] documented in this [facility] History of Past illness Narrative* Problem Noted Date Diagnosed Date Resolved Date Suspected stroke patient las t known to be well 2 to 3 hours ago 11/10/2022 11/10/2022 Stroke of uncertain pathology 11/10/2022 11/10/2022 documented as of this encounter (statuses as of 02/04/2023) [facility]07-31-2023 History of Present illness Narrative* Griselda [...] mg capsule chlorthalidone (HYGROTON) 25 mg tablet [facility] 10 billion cell -200 mg capsule [...] on the patient's daughters phone, report from [facility]. Patient denied all associated symptoms. She does [...] which included preparing to see the patient, avqo-cd-wqpl patient care, completing clinical documentation, performing a medically appropriate examination, counseling and educating the patient/family/caregiver, and ordering medications, tests,or procedures. documented in this encounterC[facility]07-28-2023 History of Past illness Narrative* Problem Noted Date Diagnosed Date Resolved Date Suspected stroke patient las t known to be well 2 to 3 hours ago 11/10/2022 11/10/2022 Stroke of uncertain pathology 11/10/2022 11/10/2022 documented as of this encounter (statuses as of 01/31/2023) [facility]07-28-2023 NoteHNO ID: [id number] Author: Lashanda Albrecht APRN.JANICE Service: ? Author [...] (no units) Date Value 12/03/2022 Negative Specific Sumner, Ur (no units) Date Value 12/03/2022 >=1.030 [...] syrup chlorthalidone (HYGROTON) 25 mg tablet C[facility]E [employer] [facility] 10 billion cell -200 mg capsule [...] not taking: Reported on 01/10/2023) lactobacillus rhamnosus ([employer]LE) 10 billion cell capsule Take 1 capsule [...] 599.0, 599.70, ICD10: N39.0, R31.9 Lashanda Albrecht APRN.[facility]07[facility] History of Present illness Narrative* Lashanda Albrecht APRN.[employer] RA[employer] CONSULTANT - 01/31/2023 1:49 PM EDT ESTABLISHED PATIENT [...] (no units) Date Value 12/03/2022 Negative Specific Sumner, Ur (no units) Date Value 12/03/2022 >=1.030 [...] mL syrup chlorthalidone (HYGROTON) 25 mg tablet [employer] [facility] 10 billion cell -200 mg capsule [...] 599.70, ICD10: N39.0, R31.9 Lashanda Albrecht APRN.JANICE documented in this encounterC[facility] History of Past illness Narrative* Problem Noted Date Diagnosed Date Resolved Date Suspected stroke patient las t known to be well 2 to 3 hours ago 11/10/2022 11/10/2022 Stroke of uncertain pathology 11/10/2022 11/10/2022 documented as of this encounter (statuses as of 01/13/2023) [facility]07-10-2023 NoteHNO ID: [id number] Author: Radha Ferreira APRN.CNP Service: ? Author Type: Nurse Practitioner Type: Progress Notes Filed: 01/13/2023 11:12 AM Note Text: Connected Care Unit Progress Note Patient Name: Myrna Saravia Patient Facility: [facility] Admit Date 12/09/22 Level of [...] Dept Phone 01/31/2023 1:15 PM LASHANDA ALBRECHT [facility] [phone] 02/03/2023 1:00 PM GRISELDA MURPHY [facility] [phone] 02/13/2023 2:00 PM APURVA BRUNO P[facility] [phone] HPI: (Per hospital dc summary) 77-year-old female presented [facility] for acute onset of right upper extremity and right lower extremity weakness. Then was called and she was presented to [facility] where telestroke was called. She had [...] her PCP and neurology. Pt was in [facility] from 11/16-12/09. During her stay, she participating with therapy and was started on remeron. Diet advanced. Interval HPI [facility] Had another fall yesterday evening. Fell out [...] labs, family/social history (u (more content not included)...[facility]07-10-2023 History of Present illness Narrative* Radha Ferreira APRN.[employer] RA[employer] CONSULTANT - 01/13/2023 10:56 AM EDT Images from the original note were not included. Connected Care Unit Progress Note Patient Name: Myrna Saravia Patient Facility: [facility] Admit Date 12/09/22 Level of [...] Dept Phone 01/31/2023 1:15 PM LASHANDA ALBRECHT [facility] [phone] 02/03/2023 1:00 PM GRISELDA MURPHY [facility] [phone] 02/13/2023 2:00 PM APURVA BRUNO [facility] [phone] HPI: (Per hospital dc summary) 77-year-old female presented [facility] for acute onset of right upper extremity and right lower extremity weakness. Then was called and she was presented to [facility] where telestroke was called. She had [...] her PCP and neurology. Pt was in [facility] from 11/16-12/09. During her stay, she participating with therapy and was startedon remeron. Diet advanced. Interval HPI [facility] Had another fall yesterday evening. Fell out [...] 4.3/BUN 29/Cr 1.1 WBC 6.6/Hgb 10.8/Plt 153 /19 Na 143/K 3.9/BUN 27/Cr 1.0 WBC 5.8/Hgb [...] today, 01/13/2023. Electronically signed by Radha Ferreira APRN.RU[employer] ON RAILS CONSULTANT documented in this encounterC[facility]23 History of Past illness Narrative* Problem Noted Date Resolved Date Suspected stroke patient las t known to be well 2 to 3 hours ago 11/10/2022 11/10/2022 Stroke of uncertain pathology 11/10/2022 documented as of this encounter (statuses as of 01/10/2023) [facility]07-07-2023 NoteHNO ID: [id number] Author: Lashanda Albrecht APRN.CNP Service: ? Author Type: Nurse Practitioner [...] stroke. She is currently in rehab at [place]. She does not want to have a [...] (no units) Date Value 12/03/2022 Negative Specific Sumner, Ur (no units) Date Value 12/03/2022 >=1.030 Hemoglobin/Blood,Ur (no units) Date Value 12/03/2022 Negative pH, Urine (no units) Date Value 12/03/2022 6.0 Protein, Urine (no units) Date Value 12/03/2022 Negative Urobilinogen (no units) Date Value 12/03/2022 0.2 EU/dL Nitrites (no units) Date Value 12/03/2022 Negative Leuk Esterase (no units) Date Value 12/03/2022 Negative MEDICATIONS: chlorthalidone (HYGROTON) 25 mg tablet [facility] 10 billion cell -200 mg capsule [...] of urine - ICD (more content not included)...[facility]07-07-2023 Instructions* Patient Instructions* Lashanda Albrecht APRN.CNP - 01/10/2023 1:48 PM EDT Orders for [place] [facility]: - Please send a catheterized urine [...] Urology, we will treat if positive UTI. [phone] fax, attention: Lashanda Albrecht APRN.CNP documented in this encounterCrystal [facility]07-07-2023 History of Present illness Narrative* Lashanda CopeDASHA blanco.[employer] RAILS CONSULTANT - 01/10/2023 1:18 PM EDT ESTABLISHED PATIENT [...] stroke. She is currently in rehab at [place]. She does not want to have a [...] (no units) Date Value 12/03/2022 Negative Specific Sumner, Ur (no units) Date Value 12/03/2022 >=1.030 Hemoglobin/Blood,Ur (no units) Date Value 12/03/2022 Negative pH, Urine (no units) Date Value 12/03/2022 6.0 Protein, Urine (no units) Date Value 12/03/2022 Negative Urobilinogen (no units) Date Value 12/03/2022 0.2 EU/dL Nitrites (no units) Date Value 12/03/2022 Negative Leuk Esterase (no units) Date Value 12/03/2022 Negative MEDICATIONS: chlorthalidone (HYGROTON) 25 mg tablet CULTURELLE DIGESTIVE [...] than half of todays over 40 minute [id number] office visit was spent in counselling/coordination of care [facility] History of Past illness Narrative* Problem Noted Date Resolved Date Suspected stroke patient las t known to be well 2 to 3 hours ago 11/10/2022 11/10/2022 Stroke of uncertain pathology 11/10/2022 documented as of this encounter (statuses as of 01/09/2023) [facility] Miscellaneous Notes* Patient Education - Kori Degroot RN - 01/08/2023 2:00 PM EDT Pt and daughter educated on event monitor. Stated understanding and able to demonstrate use. documented in this encounterC[facility]07-02-2023 History of Past illness Narrative* Problem Noted Date Resolved Date Suspected stroke patient saul cr known to be well 2 to 3 hours ago 11/10/2022 11/10/2022 Stroke of uncertain pathology 11/10/2022 documented as of this encounter (statuses as of 01/06/2023) [facility]-29-[facility]23 NoteHNO ID: [id number] Author: Radha Ferreira APRN.CNP Service: ? Author Type: Nurse Practitioner Type: Progress Notes Filed: 01/05/2023 10:29 PM Note Text: Connected Care Unit Progress Note Patient Name: Myrna Saravia Patient Facility: [facility] Admit Date 12/09/22 Level of [...] CARD LAB STRESS 2 BATH [address] [facility] [phone] 01/10/2023 1:00 PM LASHANDA ALBRECHT [facility] [phone] 02/03/2023 1:00 PM GRISELDA MURPHY Gen [phone] 02/13/2023 2:00 PM APURVA BRUNO [facility] [phone] HPI: (Per hospital dc summary) 77-year-old female presented [facility] for acute onset of right upper extremity and right lower extremity weakness. Then was called and she was presented to [facility] where telestroke was called. She had [...] her PCP and neurology. Pt was in [facility] from 11/16-12/09. During her stay, she [...] 153 12/23 Na 143/ (more content not included)...[facility]06-29-2023 History of Present illness Narrative* Radha Ferreira APRN.RUBY ON RAILS CONSULTANT - 01/02/2023 9:38 PM EDT Images from the original note were not included. Connected Care Unit Progress Note Patient Name: Myrna Saravia Patient Facility: [facility] Admit Date 12/09/22 Level of [...] CARD LAB STRESS 2 BATH AG WEST [phone] 01/10/2023 1:00 PM LASHANDA ALBRECHT [facility] [phone] 02/03/2023 1:00 PM GRISELDA MURPHY [facility] [phone] 02/13/2023 2:00 PM APURVA BRUNO [facility] [phone] HPI: (Per hospital dc summary) 77-year-old female presented [facility] for acute onset of right upper extremity and right lower extremity weakness. Then was called and she was presented to [facility] where telestroke was called. She had [...] her PCP and neurology. Pt was in [facility] from 11/16-12/09. During her stay, she [...] today, 01/02/2023. Electronically signed by Radha Ferreira APRN.RUBY ON RAILS CONSULTANT documented in this encounterC[facility]06-27-2023 NoteHNO ID: [id number] Author: Radha Ferreira APRN.JANICE Service: ? Author Type: Nurse Practitioner Type: Progress Notes Filed: 01/01/2023 11:20 AM Note Text: Connected Care Unit Progress Note Patient Name: Myrna Saravia Patient Facility: [facility] Admit Date 12/09/22 Level of [...] CARD LAB STRESS 2 BATH AG WEST [phone] 01/10/2023 1:00 PM LASHANDA ALBRECHT [facility] [phone] 02/03/2023 1:00 PM GRISELDA MURPHY [facility] [phone] 02/13/2023 2:00 PM APURVA BRUNO [facility] [phone] HPI: (Per hospital dc summary) 77-year-old female presented [facility] for acute onset of right upper extremity and right lower extremity weakness. Then was called and she was presented to [facility] where telestroke was called. She had [...] her PCP and neurology. Pt was in [facility] from 11/16-12/09. During her stay, she [...] provided regarding pt's progress and experience at SNF. PAST MEDICAL HISTORY Diagnosis Date Hypertension Intracranial [...] pain. Musculoskeletal: Positive fo (more content not included)...[facility]06-25-2023 History of Past illness Narrative* Problem Noted Date Resolved Date Suspected stroke patient saul cr known to be well 2 to 3 hours ago 11/10/2022 11/10/2022 Stroke of uncertain pathology 11/10/2022 documented as of this encounter (statuses as of 12/30/2022) [facility] History of Past illness Narrative* Problem Noted Date Resolved Date Suspected stroke patient saul cr known to be well 2 to 3 hours ago 11/10/2022 11/10/2022 Stroke of uncertain pathology 11/10/2022 documented as of this encounter (statuses as of 12/30/2022) [facility]23 NoteHNO ID: [id number] Author: Radha Ferreira APRN.JANICE Service: ? Author Type: Nurse Practitioner Type: Progress Notes Filed: 12/29/2022 10:25 PM Note Text: Connected Care Unit Progress Note Patient Name: Myrna Saravia Patient Facility: [facility] Admit Date 12/09/22 Level of [...] Dept Phone 01/10/2023 1:00 PM LASHANDA ALBRECHT [facility] [phone] 02/03/2023 1:00 PM GRISELDA MURPHY [facility] [phone] 02/13/2023 2:00 PM APURVA BRUNO [facility] [phone] HPI: (Per hospital dc summary) 77-year-old female presented [facility] for acute onset of right upper extremity and right lower extremity weakness. Then was called and she was presented to [facility] where telestroke was called. She had [...] her PCP and neurology. Pt was in [facility] from 11/16-12/09. During her stay, she [...] family/social history (unchanged) Reviewed. (more content not included)...[facility]06-23-2023 History of Present illness Narrative* Radha Ferreira APRN.RUBY ON RAILS CONSULTANT - 12/27/2022 10:06 PM EDT Images from the original note were not included. Connected Care Unit Progress Note Patient Name: Myrna Saravia Patient Facility: [facility] Admit Date 12/09/22 Level of [...] Dept Phone 01/10/2023 1:00 PM LASHANDA ALBRECHT [facility] [phone] 02/03/2023 1:00 PM GRISELDA MURPHY [facility] [phone] 02/13/2023 2:00 PM APURVA BRUNO [facility] [phone] HPI: (Per hospital dc summary) 77-year-old female presented [facility] for acute onset of right upper extremity and right lower extremity weakness. Then was called and she was presented to [facility] where telestroke was called. She had [...] her PCP and neurology. Pt was in [facility] from 11/16-12/09. During her stay, she [...] today, 12/27/2022. Electronically signed by Radha Ferreira APRN.RUBY ON RAILS CONSULTANT documented in this encounterC[facility]06-21-2023 History of Past illness Narrative* Problem Noted Date Resolved Date Suspected stroke patient las t known to be well 2 to 3 hours ago 11/10/2022 11/10/2022 Stroke of uncertain pathology 11/10/2022 documented as of this encounter (statuses as of 12/25/2022) [facility]23 NoteHNO ID: [id number] Author: Radha Ferreira APRN.CNP Service: ? Author Type: Nurse Practitioner Type: Progress Notes Filed: 12/24/2022 10:20 AM Note Text: Connected Care Unit Progress Note Patient Name: Myrna Saravia Patient Facility: [facility] Admit Date 12/09/22 Level of [...] Dept Phone 01/10/2023 1:00 PM LASHANDA ALBRECHT [facility] [phone] 02/03/2023 1:00 PM GRISELDA MURPHY [phone] 02/13/2023 2:00 PM APURVA BRUNO [facility] [phone] HPI: (Per hospital dc summary) 77-year-old female presented [facility] for acute onset of right upper extremity and right lower extremity weakness. Then was called and she was presented to [facility] where telestroke was called. She had [...] her PCP and neurology. Pt was in [facility] from 11/16-12/09. During her stay, she [...] any uncontrolled pain exacerbatio (more content not included)...[facility]06-20-[facility] History of Past illness Narrative* Problem Noted Date Resolved Date Suspected stroke patient las t known to be well 2 to 3 hours ago 11/10/2022 11/10/2022 Stroke of uncertain pathology 11/10/2022 documented as of this encounter (statuses as of 12/24/2022) [facility]23 NoteHNO ID: [id number] Author: Radha Ferreira APRN.RUBY ON RAILS CONSULTANT Service: ? Author Type: Nurse Practitioner Type: Progress Notes Filed: 12/23/2022 9:44 PM Note Text: Connected Care Unit Progress Note Patient Name: Myrna Saravia Patient Facility: [facility] Admit Date 12/09/22 Level of [...] Dept Phone 01/10/2023 1:00 PM LASHANDA ALBRECHT [facility] [phone] 02/03/2023 1:00 PM GRISELDA MURPHY [facility] [phone] 02/13/2023 2:00 PM APURVA BRUNO [facility] [phone] HPI: (Per hospital dc summary) 77-year-old female presented [facility] for acute onset of right upper extremity and right lower extremity weakness. Then was called and she was presented to [facility] where telestroke was called. She had [...] her PCP and neurology. Pt was in [facility] from 11/16-12/09. During her stay, she [...] (unchanged) Reviewed. Refer to (more content not included)...[facility]06-19-2023 History of Present illness Narrative* Radha Ferreira APRN.RUBY ON RAILS CONSULTANT - 12/23/2022 9:34 PM EDT Images from the original note were not included. Connected Care Unit Progress Note Patient Name: Myrna Saravia Patient Facility: [facility] Admit Date 12/09/22 Level of [...] Phone 01/10/2023 1:00 PM VINAY LASHANDA SF [facility] [phone] 02/03/2023 1:00 PM GRISELDA MURPHY [facility] [phone] 02/13/2023 2:00 PM APURVA BRUNO [facility] [phone] HPI: (Per hospital dc summary) 77-year-old female presented [facility] for acute onset of right upper extremity and right lower extremity weakness. Then was called and she was presented to [facility] where telestroke was called. She had [...] her PCP and neurology. Pt was in [facility] from 11/16-12/09. During her stay, she [...] today, 12/23/2022. Electronically signed by Radha Ferreira APRN.RUBY ON RAILS CONSULTANT documented in this encounterC[facility]06-16-2023 NoteHNO ID: [id number] Author: Lashanda Albrecht APRN.JANICE Service: ? Author [...] stroke. She is currently in rehab at [place]. She does not want to have a [...] (no units) Date Value 12/03/2022 Negative Specific [place], Ur (no units) Date Value 12/03/2022 >=1.030 [...] Back: Normal. ASSESSMENT/PLAN: 1. 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 Retention of urine - ICD9: 788.20, ICD10: R33.9 -Macrobid x10 days sent to rehab pharmacy. -We will continue PVR checks/straight caths every 6 hours. -If PVR/straight cath greater than 750, will discuss placement of a Norton catheter. -Follow-u (more content not included)...[facility]06-15-2023 Instructions* Patient Instructions* Apurva Bruno APRN.CNP - 12/19/2022 12:00 PM EDT Images from the original note were not included. Regarding your visit with Nurse Practitioner Apurva Bruno today at the [facility] Cerebrovascular Center we discussed the following: [...] have any questions Apurva Bruno CNP Cerebrovascular [place] Nurse Practitioner [place], [place] [address] Office: [phone] Appointments: [phone] Stroke Signs and Symptoms: *Stroke is a [...] these signs, don't delay! Immediately call 911, dishae emergency medical services (EMS) number so an [...] Hypertension) eating plan - more information: https://www.heart.org/en/healthy-living/healthy-eating/eat-smart/nutrition-basic s/eog-wthu-ujc-lifestyle-recommendations Smoking and Tobacco Use (including e-cigarettes) - [...] regimen, may be considered Adopted from the [employer] St[employer] Attack : A Guideline for Healthcare Professionals Fromthe [employer] Heart Guidelines for the Prevention of Stroke in Patients With Stroke or Transient Ischemic - 2013 documented in this encounterC[facility]06-15-2023 History of Present illness Narrative* Apurva Bruno APRN.CNP - 12/19/2022 11:30 AM EDT CEREBROVASCULAR CENTER Established Visit Consultation is requested by: No referring provider defined for this encounter. PCP: Evin Garcia (Dorothy) [address] [place] [address] CEREBROVASCULAR HISTORY Myrna Saravia is a 77 year old female presenting for hospital discharge follow up. Admitted to [facility] 11/10-11/16/22. From discharge summary: 77-year-old female presented [facility] for acute onset of right upper extremity and right lower extremity weakness. Then was called and she was presented to [facility] where telestroke was called. She had [...] touch. Coordination: Rapid alternating movements symmetric bilaterally. [id number]-[id number] without dysmetria bilaterally. Gait: deferred LABS Cholesterol: [...] Disease w/o Stroke Event: Intracranial Stenosis Modified [place] Score: Score: 4 IMPRESSION Acute infarcts left [...] which included preparing to see the patient, [id number] patient care, completing clinical documentation, obtaining and/or reviewing separately obtained history, performing a medically appropriate examination, counseling and educating the patient/family/caregiver, ordering medications, tests, or procedures, independently interpreting results (not separately reported), communicating results to the patient/family/caregiver, and care coordination (not separately reported) SIGNATURE Apurva Bruno APRN.JANICE CC No referring provider defined for this encounter. Evin Garcia (David) [address] [place] [address] documented in this encounterC[facility]06-14-2023 NoteHNO ID: [id number] Author: Radha Ferreira APRN.CNP Service: ? Author Type: Nurse Practitioner Type: Progress Notes Filed: 12/18/2022 9:49 AM Note Text: Connected Care Unit Progress Note Patient Name: Myrna Saravia Patient Facility: [facility] Admit Date 12/09/22 Level of [...] Dept Phone 12/19/2022 11:30 AM APURVA BRUNO [facility] [phone] HPI: (Per hospital dc summary) 77-year-old female presented [facility] for acute onset of right upper extremity and right lower extremity weakness. Then was called and she was presented to [facility] where telestroke was called. She had [...] her PCP and neurology. Pt was in [facility] from 11/16-12/09. During her stay, she participating with therapy and was started on remeron. Diet advanced. Interval HPI Seen lying in bed. Continues to require intermittent catheterization for urinary retention. Reviewed options and plan. Pt prefers to continue with intermittent caths versus temporary indwelling catheter. Will refer to urology, okay to defer if she begins voiding spontaneously [...] current medications, most recent labs, family/social history ([facility] (more content not included)...[facility]06-12-2023 NoteHNO ID: [id number] Author: Radha Ferreira APRN.JANICE Service: ? Author Type: Nurse Practitioner Type: Progress Notes Filed: 12/17/2022 1:09 PM Note Text: Connected Care Unit Progress Note Patient Name: Myrna Saravia Patient Facility: [facility] Admit Date 12/09/22 Level of [...] Provider Location Dept Phone 12/19/2022 11:30 AM CODY APURVA [facility] [phone] HPI: (Per hospital dc summary) 77-year-old female presented [facility] for acute onset of right upper extremity and right lower extremity weakness. Then was called and she was presented to [facility] where telestroke was called. She had [...] her PCP and neurology. Pt was in [facility] from 11/16-12/09. During her stay, she [...] dry since 2AM when she was cathed. BANJO REPAIR PERSON in room to assist pt up to [...] is not in acute (more content not included)...[facility]05-25-2023 NoteHNO ID: [id number] Author: Lucero Barajas PA-C Service: ? Author Type: Physician Asphalt Patcher Type: Progress Notes Filed: 11/28/2022 2:57 PM [...] completed 11/13/22 as recommended. Actionable Finding addressed. 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 11-[facility] History of Past illness Narrative* Problem Noted Date Resolved Date Suspected stroke patient las t known to be well 2 to 3 hours ago 11/10/2022 11/10/2022 Stroke of uncertain pathology 11/10/2022 documented as of this encounter (statuses as of 11/10/2022) [facility] History of Present illness Narrative* Myrna Reyes MD - 11/10/2022 6:04 PM EDT TELESTROKE DOCUMENTATION Name: Myrna Saravia : 1945 Referring Site: [facility] Referring Provider: Dr. Heena Last Known Well (Date/Time): 11/10/22 1000 Neurologist [...] a telestroke. Thank you for contacting the [facility]. I appreciate the opportunity for allowing me to participate in Myrna Saravia's care. Please feel free to contact me and/or the [facility] at any time if you have any further questions or need additional assistance. Myrna Reyes MD November 10, 2022 6:19 PM documented in this encounterCrystal Clinic [facility]05-07-2023 History of Past illness Narrative* Problem Noted Date Resolved Date Suspected stroke patient las t known to be well 2 to 3 hours ago 11/10/2022 11/10/2022 Stroke of uncertain pathology 11/10/2022 documented as of this encounter (statuses as of 12/09/2022) [facility]* Diagnosis Arterial ischemic stroke (HCC)- Primary Unspecified cerebral artery occlusion with cerebral infarction documented in this encounter [facility]* Diagnosis 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 Dysphasia Other speech disturbance Benign essential HTN Essential hypertension, benign Adjustment disorder with mixed anxiety and depressed mood Acute urinary retention Other specified retention of urine documented in this encounter [facility]* Diagnosis Arterial ischemic stroke (HCC)- Primary Unspecified cerebral artery occlusion with cerebral infarction Transient cerebral ischemia, unspecified type Hyperlipidemia, unspecified hyperlipidemia type Intracranial atherosclerosis Cerebral atherosclerosis Mixed hyperlipidemia Adjustment disorder with mixed anxiety and depressed mood Disturbance in sleep behavior Sleep disturbance, unspecified Right hemiparesis (HCC) Hemiplegia, unspecified, affecting unspecified side documented in this encounter [facility]* Diagnosis OPENED IN ERROR- Primary To allow closing an encounter opened in error (used in SmartSet) documented in this encounter [facility]* Diagnosis 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 Dysphasia Other speech disturbance Benign essential HTN Essential hypertension, benign Acute urinary retention Other specified retention of urine Leg edema Edema documented in this encounter [facility]* Diagnosis Transient cerebral ischemia, unspecified type- Primary Retention of urine Retention of urine, unspecified Urinary tract infection with hematuria, site unspecified [facility] Diagnosis 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 Leg edema Edema Repeated falls Other symptoms involving nervous and musculoskeletal systems Acute urinary retention Other specified retention of urine [facility]* Diagnosis Retention of urine- Primary Retention of urine, unspecified Urinary tract infection with hematuria, site unspecified documented in this encounter [facility]* Diagnosis Esophageal stricture- Primary Stricture and stenosis of esophagus documented in this encounter [facility]* Diagnosis Arterial ischemic stroke (HCC)- Primary Unspecified cerebral artery occlusion with cerebral infarction Right hemiparesis (HCC) Hemiplegia, unspecified, affecting unspecified side Primary hypertension Unspecified essential hypertension 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 without mention of cerebral infarction Dyslipidemia, goal LDL below 70 Other and unspecified hyperlipidemia documented in this encounter [facility] noteNo assessment information availableWCherrington Hospital Work Phone: Evaluation note* Diagnosis Retention of urine- Primary Retention of urine, unspecified Urinary tract infection with hematuria, site unspecified documented in this encounter [facility]* Diagnosis Aphasia as late effect of cerebrovascular accident- Primary Aphasia, late effect of cerebrovascular disease Hemiparesis affecting right side as late effect of cerebrovascular accident (HCC) Hemiplegia affecting unspecified side, late effect of cerebrovascular disease Intracranial atherosclerosis Cerebral atherosclerosis Primary hypertension Unspecified essential hypertension Dyslipidemia, goal LDL below 70 Other and unspecified hyperlipidemia Persistent depressive disorder documented in this encounter [facility]* Diagnosis Retention of urine- Primary Retention of urine, unspecified Urinary tract infection with hematuria, site unspecified documented in this encounter [facility]* Diagnosis Cerebrovascular accident (CVA), unspecified mechanism [...] and unspecified hyperlipidemia documented in this encounter [facility] for referral (narrative)No reason for referral information availableWCherrington Hospital Work Phone: Advance Directives No Advanced Directives Records FoundDocuments on File Type Date Recorded Patient [place] Expl anation Advance Directive(s) 11/12/2022 1:50 PM [...] Reason for Visit Chief Complaint LAB WORK RETIREMENT LAB WORK Chief Complaint LAB WORK RETIREMENT LAB WORK LABWORK Chief Complaint LAB WORK RETIREMENT LAB WORK RETIREMENT LABWORK LABWORK RETIREMENT LAB WORK LABWORK Chief Complaint RETIREMENT LABWORK LABWORK RETIREMENT LAB WORK LABWORK RETIREMENT LAB WORK Chief Complaint Admit Date RETIREMENT LAB WORK June 02 5:00am LABWORK August 04, 2024 5 :00am Chief Complaint Admit Date LABWORK August 04, 2024 5 :00am RETIREMENT LAB WORK September 07, 2024 5: 00am Chief Complaint Admit Date LABWORK August 04, 2024 5 :00am RETIREMENT LAB WORK September 07, 2024 5: 00am RETIREMENT LAB WORK October 01, 2024 5 :00am Chief Complaint Admit Date LABWORK August 04, 2024 5 :00am RETIREMENT LAB WORK September 07, 2024 5: 00am RETIREMENT LAB WORK October 01, 2024 5 :00am RETIREMENT LAB WORK October 06, 2024 5: 00am [...] or prosecute any alcohol or drug abuse patient.[facility] CenterIn the event this information is protected by the Federal Confidentiality of Alcohol and Drug Abuse Patient Records regulations: The Federal rules restrict any use of the information to criminally investigate or prosecute any alcohol or drug abuse patient.[facility] CenterIn the event this information is protected by the Federal Confidentiality of Alcohol and Drug Abuse Patient Records regulations: The Federal rules restrict any use of the information to criminally investigate or prosecute any alcohol or drug abuse patient.[facility] CenterIn the event this information is protected by the Federal Confidentiality of Alcohol and Drug Abuse Patient Records regulations: The Federal rules restrict any use of the information to criminally investigate or prosecute any alcohol or drug abuse patient.[facility] CenterIn the event this information is protected by the Federal Confidentiality of Alcohol and Drug Abuse Patient Records regulations: The Federal rules restrict any use of the information to criminally investigate or prosecute any alcohol or drug abuse patient.[facility] CenterIn the event this information is protected by the Federal Confidentiality of Alcohol and Drug Abuse Patient Records regulations: The Federal rules restrict any use of the information to criminally investigate or prosecute any alcohol or drug abuse patient.[facility] CenterIn the event this information is protected by the Federal Confidentiality of Alcohol and Drug Abuse Patient Records regulations: The Federal rules restrict any use of the information to criminally investigate or prosecute any alcohol or drug abuse patient.[facility] CenterIn the event this information is protected by the Federal Confidentiality of Alcohol and Drug Abuse Patient Records regulations: The Federal rules restrict any use of the information to criminally investigate or prosecute any alcohol or drug abuse patient.[facility] CenterIn the event this information is protected by the Federal Confidentiality of Alcohol and Drug Abuse Patient Records regulations: The Federal rules restrict any use of the information to criminally investigate or prosecute any alcohol or drug abuse patient.[facility] CenterIn the event this information is protected by the Federal Confidentiality of Alcohol and Drug Abuse Patient Records regulations: The Federal rules restrict any use of the information to criminally investigate or prosecute any alcohol or drug abuse patient.[facility] CenterIn the event this information is protected by the Federal Confidentiality of Alcohol and Drug Abuse Patient Records regulations: The Federal rules restrict any use of the information to criminally investigate or prosecute any alcohol or drug abuse patient.[facility] CenterIn the event this information is protected by the Federal Confidentiality of Alcohol and Drug Abuse Patient Records regulations: The Federal rules restrict any use of the information to criminally investigate or prosecute any alcohol or drug abuse patient.[facility] CenterIn the event this information is protected by the Federal Confidentiality of Alcohol and Drug Abuse Patient Records regulations: The Federal rules restrict any use of the information to criminally investigate or prosecute any alcohol or drug abuse patient.[facility] CenterIn the event this information is protected by the Federal Confidentiality of Alcohol and Drug Abuse Patient Records regulations: The Federal rules restrict any use of the information to criminally investigate or prosecute any alcohol or drug abuse patient.[facility] CenterIn the event this information is protected by the Federal Confidentiality of Alcohol and Drug Abuse Patient Records regulations: The Federal rules restrict any use of the information to criminally investigate or prosecute any alcohol or drug abuse patient.[facility] CenterIn the event this information is protected by the Federal Confidentiality of Alcohol and Drug Abuse Patient Records regulations: The Federal rules restrict any use of the information to criminally investigate or prosecute any alcohol or drug abuse patient.[facility] CenterIn the event this information is protected by the Federal Confidentiality of Alcohol and Drug Abuse Patient Records regulations: The Federal rules restrict any use of the information to criminally investigate or prosecute any alcohol or drug abuse patient.[facility] Care Teams (unrecognized sec tion and content) Box Blank Machine Operator Helper Relationship Specialty Start Date End Date Evin Garcia MD [address] [place] [address] PCP - General Family Medicine 11/10/22 Box Blank Machine Operator Helper Relationship Specialty Start Date End Date Evin Garcia MD [address] [place] [phone] PCP - General Family Medicine 11/10/22 Box Blank Machine Operator Helper Relationship Specialty Start Date End Date Evin Garcia MD [address] [place] [address] PCP - General Family Medicine 11/10/22 Box Blank Machine Operator Helper Relationship Specialty Start Date End Date Evin Garcia MD [address] [place] [address] PCP - General Family Medicine 11/10/22 Box Blank Machine Operator Helper Relationship Specialty Start Date End Date Evin Garcia MD [address] [place] [phone] PCP - General Family Medicine 11/10/22 Box Blank Machine Operator Helper Relationship Specialty Start Date End Date Evin Garcia MD [address] [place] [phone] PCP - General Family Medicine 11/10/22 Box Blank Machine Operator Helper Relationship Specialty Start Date End Date Evin Garcia MD [address] [place] [phone] PCP - General Family Medicine 11/10/22 Box Blank Machine Operator Helper Relationship Specialty Start Date End Date Evin Garcia MD [address] [place] [phone] PCP - General Family Medicine 11/10/22 Box Blank Machine Operator Helper Relationship Specialty Start Date End Date Evin Garcia MD [address] [place] [phone] PCP - General Family Medicine 11/10/22 Box Blank Machine Operator Helper Relationship Specialty Start Date End Date Evin Garcia MD [address] [place] [phone] PCP - General Family Medicine 11/10/22 Team [...] HAWK Attending Provider, Referring Provi shawnee Active Box Blank Machine Operator Helper Relationship Specialty Start Date End Date Evin Garcia MD [address] [place] [phone] PCP - General Family Medicine 11/10/22 Box Blank Machine Operator Helper Relationship Specialty Start Date End Date Evin Garcia MD [address] [place] [phone] PCP - General Family Medicine 11/10/22 Box Blank Machine Operator Helper Relationship Specialty Start Date End Date Evin Garcia MD [address] [place] [phone] PCP - General [facility] Medicine 11/10/22 Team Status: Active Member Role Status Dates [facility] Attending Provider Active Start: June 02, 2024 Team Status: Inactive Member Role Status Dates Marcos HAWK Attending Provider Active Sta rt: August 04, 2024 End: August 04, 2024 Team Status: Active Member Role Status Dates [facility] Attending Provider Active Start: September 07, 2024 Team Status: Inactive Member Role Status Dates [facility] Attending Provider Active Start: September 07, 2024 [...] 2024 Team Status: Inactive Member Role Status Mariam HAWK MD Attending Provider Active Start: October 06, 2024 End: October 06, 2024 Team Status: Active Member Role Status Dates Lashanda HAWK MD Attending Provider Active Start: October 27, 2024 Team Status: Inactive Member Role Status Dates Marcos Екатеринаwinsome HAWK Attending Provider Active Sta rt: November [...] and culture after last appointment, [facility]. Waiting for repeat culture results. Reason Comments [...] section and content) DATE CREATED AUTHOR 11/24/[address] [facility] DATE CREATED AUTHOR AUTHOR'S ORGANIZ ATION 05/15/2024 [facility] DATE CREATED AUTHOR AUTHOR'S ORGANIZ ATION 12/09/2024 [facility] FOR RECORDS PERTAINING TO PATIENTS WHO [...] BE BASED ON THE PRIMARY CLINICAL RECORDS. [employer] provides no warranty or guarantee of the accuracy or completeness of information in this document.
--- OUTSIDE RECORDS SUMMARY | 2024-12-15 04:08 | XMS RPT_ITS | CCD ---
Author Organization [facility] Care Team Providers Care Foot Orthopedist Name Role Phone Evin Garcia MD Primary [...] Unavailabl APURVA Noonan Attending Unavailable [facility] Attending Provider [phone] Marcos Reddy Attending Provider Unavailab le Marcos Reddy Attending Provider Unavailab le [facility] Attending Provider [phone] Lashanda Stone MD Attending Provider Unava ilable Lashanda Covarrubias Attending Unavail able Marcos Reddy Attending Unavailable Marcos Reddy Attending Unavailable Marcos Reddy Attending Unavailable [facility] Attending Marcos Melendez Attending Unavailable [facility] Attending Lashanda Walsh Attending Unavail able Lashanda [...] ANTIBIOTICS)] Drug Allergy 3 Mental Status Change [facility] (17 sources) Amoxicillin; Translations: [AMOXICILLIN] Drug Allergy 3 Other: See Comments [facility] (17 sources) Ciprofloxacin; Translations: [CIPROFLOXACIN] Drug Allergy 3 Mental Status Change [facility] Medications Current Medications Medication Drug Class(es) [...] inulin 200 mg / lactobacillus rhamnosus gg [id number] unt oral capsule (9 sources) Start: [facility] 10 billion cell -200 mg capsule 01/06/2023 Active lactobacillus rhamnosus gg [id number] unt oral capsule (16 sources) Start: take [...] daily for 10 days. polyethylene glycol 3350 [id number] mg powder for oral solution (9 sources) [...] doses. docusate sodium 50 mg / sennosides, fci 8.6 mg oral tablet (13 sources) Start: [...] 11-10-2022 Episodic Other aftercare (1 source) Other group home (current) drug therapy; Translations: [Other intermediate frame tender (current) drug therapy] Onset: 06-16-2024 Episodic Other [...] )on 12-08-2024 BUN/CRE 17.8 RATIO Normal 10-20 [facility] Comment on above: Order Comment: Performed By: #### L 500.2500 #### [facility] [address] [place], [address] Calcium [Mass/Vol] 8.6 mg/dL Normal 7.6-11.0 [facility] Comment on above: Order Comment: . Performed By: #### L 500.2500 #### [facility] [address] [place], [address] Chloride [Moles/Vol] 108 mmol/L Normal 98-108 [facility] Comment on above: Order Comment: Performed By: #### L 500.2500 #### [facility] [address] [place], [address] CO2 [Moles/Vol] 25.3 mmol/L Normal 21.0-32.0 [facility] Comment on above: Order Comment: 205.1 Performed By: #### L 500.2500 #### [facility] [address] [place], [address] Creatinine [Mass/Vol] 1.19 mg/dL Normal 0.70-1.20 [facility] Comment on above: Order Comment: 205.1 Performed By: #### L 500.2500 #### [facility] [address] [place], [address] GAP 8 Normal 5-15 [facility] Comment on above: Order Comment: . Performed By: #### L 500.2500 #### [facility] [address] [place], [address] GFR/1.73 sq M.predicted among non-blacks MDRD (S/P/Bld) [Vol rate/Area] 46 mL/min/{1.73_m2} Low >60 [facility] Comment on above: Order Comment: . Result Comment: mL/m in/1.73m2 CKD-EPI Creatinine Equation (2020) Performed By: #### L 500.2500 #### [facility] [address] [place], [address] Glucose [Mass/Vol] 96 mg/dL Normal 70-99 [facility] Comment on above: Order Comment: 205.1 Performed By: #### L 500.2500 #### [facility] [address] [place], [address] Potassium [Moles/Vol] 3.5 mmol/L Normal 3.3-5.1 [facility] Comment on above: Order Comment: 205.1 Performed By: #### L 500.2500 #### [facility] [address] [place], [address] Sodium [Moles/Vol] 142 mmol/L Normal 133-145 [facility] Comment on above: Order Comment: 205.1 Performed By: #### L 500.2500 #### [facility] [address] [place], [address] Urea nitrogen [Mass/Vol] 21 mg/dL High 4-19 [facility] Comment on above: Order Comment: 205.1 Performed By: #### L 500.2500 #### [facility] [address] [place], [address] Anion gap in Serum or Plasma Ordered By: Lashanda Stone on 11-12-2024 Anion gap [Moles/Vol] 6 mmol/L - [facility] BUN/creatinine ratioOrdered By: Lashanda Stone on 11-12-2024 Urea nitrogen/Creatinine [Mass ratio] 19.2 mg/mg - [facility] Basic Metabolic Profile (BMP )on 11-12-2024 BUN/CRE 19.2 RATIO Normal - [facility] Comment on above: Order Comment: 205.1 Performed By: #### L 500.2500 #### [facility] [address] [place], [address] Calcium [Mass/Vol] 8.8 mg/dL Normal 7.6-11.0 [facility] Comment on above: Order Comment: 205.1 Performed By: #### L 500.2500 #### [facility] [address] [place], [address] Chloride [Moles/Vol] 111 mmol/L High 98-108 [facility] Comment on above: Order Comment: 205.1 Performed By: #### L 500.2500 #### [facility] [address] [place], [address] CO2 [Moles/Vol] 25.3 mmol/L Normal 21.0-32.0 [facility] Comment on above: Order Comment: 205.1 Performed By: #### L 500.2500 #### [facility] [address] [place], [address] Creatinine [Mass/Vol] 1.14 mg/dL Normal 0.70-1.20 [facility] Comment on above: Order Comment: 205.1 Performed By: #### L 500.2500 #### [facility] [address] [place], [address] GAP 6 Normal 5-15 [facility] Comment on above: Order Comment: 205.1 Performed By: #### L 500.2500 #### [facility] [address] [place], [address] GFR/1.73 sq M.predicted among non-blacks MDRD (S/P/Bld) [Vol rate/Area] 48 mL/min/{1.73_m2} Low >60 [facility] Comment on above: Order Comment: . Result Comment: mL/m in/1.73m2 CKD-EPI Creatinine Equation (2020) Performed By: #### L 500.2500 #### [facility] [address] [place], [address] Glucose [Mass/Vol] 89 mg/dL Normal 70-99 [facility] Comment on above: Order Comment: 205.1 Performed By: #### L 500.2500 #### [facility] [address] [place], [address] Potassium [Moles/Vol] 3.9 mmol/L Normal 3.3-5.1 [facility] Comment on above: Order Comment: 205.1 Performed By: #### L 500.2500 #### [facility] [address] [place], [address] Sodium [Moles/Vol] 142 mmol/L Normal 133-145 [facility] Comment on above: Order Comment: 205.1 Performed By: #### L 500.2500 #### [facility] [address] [place], [address] Urea nitrogen [Mass/Vol] 22 mg/dL High 4-19 [facility] Comment on above: Order Comment: 205.1 Performed By: #### L 500.2500 #### [facility] [address] [place], [address] Carbon dioxide, total [Moles /volume] in Central venous bloodOrdered By: Lashanda Stone on 11-12-2024 CO2 [Moles/Vol] 25.3 mmol/L 21.0-32.0 [facility] Chloride assayOrdered By: Kika Stone on 11-12-2024 Chloride [Moles/Vol] 111 mmol/L High 98-108 [facility] Glomerular filtration rate ( GFR) estimation/1.73 sq m using serum, plasma, or whole bOrdered By: Lashanda Stone on 11-12-2024 GFR/1.73 sq M.predicted among non-blacks MDRD (S/P/Bld) [Vol rate/Area] 48 mL/min/{1.73_m2} Low >60 [facility] Comment on above: mL/min/1.73m2 CKD-EP I Creatinine Equation (2020) Potassium measurement (mass/ volume)Ordered By: Lashanda Stone on 11-12-2024 Potassium (Unsp spec) [Mass/Vol] 3.9 mmol/L 3.3-5.1 [facility] Serum creatinine measurement (mass/volume)Ordered By: Lashanda Stone on 11-12-2024 Creatinine [Mass/Vol] 1.14 mg/dL 0.70-1.20 [facility] Serum glucose measurement (m ass/volume)Ordered By: Lashanda Stone on 11-12-2024 Glucose [Mass/Vol] 89 mg/dL 70-99 [facility] Serum or plasma calcium thanh urement (mass/volume)Ordered By: Lashanda Stone on 11-12-2024 Calcium [Mass/Vol] 8.8 mg/dL 7.6-11.0 [facility] Serum or plasma urea nitroge n measurement (mass/volume)Ordered By: Lashanda Stone on 11-12-2024 Urea nitrogen [Mass/Vol] 22 mg/dL High - [facility] Sodium levelOrdered By: Krysten Stone on 11-12-2024 Sodium [Moles/Vol] 142 mmol/L 133-145 [facility] Anion gap in Serum or Plasma Ordered By: Lashanda Stone on 11-08-2024 Anion gap [Moles/Vol] 8 mmol/L 11-18 [facility] BUN/creatinine ratioOrdered By: Lashanda Stone on 11-08-2024 Urea nitrogen/Creatinine [Mass ratio] 19.5 mg/mg 04-25 [facility] Basic Metabolic Profile (BMP )on 11-08-2024 BUN/CRE 19.5 RATIO Normal 04-25 [facility] Comment on above: Order Comment: . Performed By: #### L 500.2500 #### [facility] [address] [place], [address] GAP 8 Normal 11-18 [facility] Comment on above: Order Comment: 205.1 Performed By: #### L 500.2500 #### [facility] [address] [place], [address] Potassium [Moles/Vol] 3.8 mmol/L Normal 3.3-5.1 [facility] Comment on above: Order Comment: .1 Performed By: #### L 500.2500 #### [facility] [address] [place], [address] Carbon dioxide, total [Moles /volume] in Central venous bloodOrdered By: Lashanda Stone on 11-08-2024 CO2 [Moles/Vol] 25.0 mmol/L Normal 21.0-32.0 [facility] Comment on above: Order Comment: 205.1 Performed By: #### L 500.2500 #### [facility] [address] [place], [address] Chloride assayOrdered By: Kika Stone on 11-08-2024 Chloride [Moles/Vol] 109 mmol/L High 98-108 [facility] Comment on above: Order Comment: 205. Performed By: #### L 500.2500 #### [facility] [address] [place], [place], [id number] Glomerular filtration rate ( GFR) estimation/1.73 sq m using serum, plasma, or whole bOrdered By: Lashanda Stone on 11-08-2024 GFR/1.73 sq M.predicted among non-blacks MDRD (S/P/Bld) [Vol rate/Area] 49 mL/min/{1.73_m2} Low >60 [facility] Comment on above: mL/min/1.73m2 CKD-EP I Creatinine Equation (2020) Order Comment: Result Comment: mL/m in/1.73m2 CKD-EPI Creatinine Equation (2020) Performed By: #### L 500.2500 #### [facility] [address] [place], [place], [id number] Potassium measurement (mass/ volume)Ordered By: Lashanda Stone on 11-08-2024 Potassium (Unsp spec) [Mass/Vol] 3.8 mmol/L 3.3-5.1 [facility] Serum creatinine measurement (mass/volume)Ordered By: Lashanda Stone on 11-08-2024 Creatinine [Mass/Vol] 1.13 mg/dL Normal 0.70-1.20 [facility] Comment on above: Order Comment: 205. Performed By: #### L 500.2500 #### [facility] [address] [place], [place], [id number] Serum glucose measurement (m ass/volume)Ordered By: Lashanda Stone on 11-08-2024 Glucose [Mass/Vol] 88 mg/dL Normal 70-99 [facility] Comment on above: Order Comment: 205. Performed By: #### L 500.2500 #### [facility] [address] [place], [place], [address] [phone] Serum or plasma calcium thanh urement (mass/volume)Ordered By: Lashanda Stone on 11-08-2024 Calcium [Mass/Vol] 8.9 mg/dL Normal 7.6-11.0 [facility] Comment on above: Order Comment: 205.1 Performed By: #### L 500.2500 #### [facility] [address] [place], [place], [phone] Serum or plasma urea nitroge n measurement (mass/volume)Ordered By: Lashanda Stone on 11-08-2024 Urea nitrogen [Mass/Vol] 22 mg/dL High 4-19 [facility] Comment on above: Order Comment: 205.1 Performed By: #### L 500.2500 #### [facility] [address] [place], [place], [address] [phone] Sodium levelOrdered By: Krysten Stone on 11-08-2024 Sodium [Moles/Vol] 142 mmol/L Normal 133-145 [facility] Comment on above: Order Comment: 205.1 Performed By: #### L 500.2500 #### [facility] [address] [place], [place], [address] ([phone] Anion gap in Serum or Plasma Ordered By: Marcos Brown on 11-01-2024 Anion gap [Moles/Vol] 10 mmol/L 5-15 [facility] BUN/creatinine ratioOrdered By: Marcos Brown on 11-01-2024 Urea nitrogen/Creatinine [Mass ratio] 25.1 mg/mg High 10- [facility] Basic Metabolic Profile (BMP )on 11-01-2024 BUN/CRE 25.1 RATIO High - [facility] Comment on above: Order Comment: 205.1 Performed By: #### L 500.2500 #### [facility] [address] [place], [place], [phone] Calcium [Mass/Vol] 8.9 mg/dL Normal 7.6-11.0 [facility] Comment on above: Order Comment: 205.1 Performed By: #### L 500.2500 #### [facility] [address] [place], [address] Chloride [Moles/Vol] 105 mmol/L Normal 98-108 [facility] Comment on above: Order Comment: 205.1 Performed By: #### L 500.2500 #### [facility] [address] [place], [address] CO2 [Moles/Vol] 25.8 mmol/L Normal 21.0-32.0 [facility] Comment on above: Order Comment: . Performed By: #### L 500.2500 #### [facility] [address] [place], [address] Creatinine [Mass/Vol] 1.32 mg/dL High 0.70-1.20 [facility] Comment on above: Order Comment: . Performed By: #### L 500.2500 #### [facility] [address] [place], [address] GAP 10 Normal 5-15 [facility] Comment on above: Order Comment: . Performed By: #### L 500.2500 #### [facility] [address] [place], [address] GFR/1.73 sq M.predicted among non-blacks MDRD (S/P/Bld) [Vol rate/Area] 41 mL/min/{1.73_m2} Low >60 [facility] Comment on above: Order Comment: . Result Comment: mL/m in/1.73m2 CKD-EPI Creatinine Equation (2020) Performed By: #### L 500.2500 #### [facility] [address] [place], [address] Glucose [Mass/Vol] 110 mg/dL High 70-99 [facility] Comment on above: Order Comment: 205.1 Performed By: #### L 500.2500 #### [facility] [address] [place], [address] Potassium [Moles/Vol] 3.5 mmol/L Normal 3.3-5.1 [facility] Comment on above: Order Comment: 205.1 Performed By: #### L 500.2500 #### [facility] [address] [place], [address] Sodium [Moles/Vol] 141 mmol/L Normal 133-145 [facility] Comment on above: Order Comment: 205.1 Performed By: #### L 500.2500 #### [facility] [address] [place], [address] Urea nitrogen [Mass/Vol] 33 mg/dL High 4-19 [facility] Comment on above: Order Comment: 205.1 Performed By: #### L 500.2500 #### [facility] [address] [place], [address] Carbon dioxide, total [Moles /volume] in Central venous bloodOrdered By: Marcos Brown on 11-01-2024 CO2 [Moles/Vol] 25.8 mmol/L 21.0-32.0 [facility] Chloride assayOrdered By: Donnie Eugene on 11-01-2024 Chloride [Moles/Vol] 105 mmol/L 98-108 [facility] Glomerular filtration rate ( GFR) estimation/1.73 sq m using serum, plasma, or whole bOrdered By: Marcos Brown on 11-01-2024 GFR/1.73 sq M.predicted among non-blacks MDRD (S/P/Bld) [Vol rate/Area] 41 mL/min/{1.73_m2} Low >60 [facility] Comment on above: mL/min/1.73m2 CKD-EP I Creatinine Equation (2020) Potassium measurement (mass/ volume)Ordered By: Marcos Brown on 11-01-2024 Potassium (Unsp spec) [Mass/Vol] 3.5 mmol/L 3.3-5.1 [facility] Serum creatinine measurement (mass/volume)Ordered By: Marcos Brown on 11-01-2024 Creatinine [Mass/Vol] 1.32 mg/dL High 0.70-1.20 [facility] Serum glucose measurement (m ass/volume)Ordered By: Marcos Brown on 11-01-2024 Glucose [Mass/Vol] 110 mg/dL High 70-99 [facility] Serum or plasma calcium thanh urement (mass/volume)Ordered By: Marcos Brown on 11-01-2024 Calcium [Mass/Vol] 8.9 mg/dL 7.6-11.0 [facility] Serum or plasma urea nitroge n measurement (mass/volume)Ordered By: Marcos Brown on 11-01-2024 Urea nitrogen [Mass/Vol] 33 mg/dL High 4-19 [facility] Sodium levelOrdered By: Brain Brown on 11-01-2024 Sodium [Moles/Vol] 141 mmol/L 133-145 [facility] Anion gap in Serum or Plasma Ordered By: Lashanda Stone on 10-27-2024 Anion gap [Moles/Vol] 9 mmol/L 5-15 [facility] BUN/creatinine ratioOrdered By: Lashanda Stone on 10-27-2024 Urea nitrogen/Creatinine [Mass ratio] 22.6 mg/mg High 10- [facility] Basic Metabolic Profile (BMP )on 10-27-2024 BUN/CRE 22.[address] [facility] Comment on above: Order Comment: 205.1 Performed By: #### L 500.2500 #### [facility] [address] [place], [address] Calcium [Mass/Vol] 9.4 mg/dL Normal 7.6-11.0 [facility] Comment on above: Order Comment: 205.1 Performed By: #### L 500.2500 #### [facility] [address] [place], [address] Chloride [Moles/Vol] 99 mmol/L Normal 98-108 [facility] Comment on above: Order Comment: 205.1 Performed By: #### L 500.2500 #### [facility] [address] [place], [address] CO2 [Moles/Vol] 32.3 mmol/L High 21.0-32.0 [facility] Comment on above: Order Comment: 205.1 Performed By: #### L 500.2500 #### [facility] [address] [place], [address] Creatinine [Mass/Vol] 1.56 mg/dL High 0.70-1.20 [facility] Comment on above: Order Comment: . Performed By: #### L 500.2500 #### [facility] [address] [place], [address] GAP 9 Normal 5-15 [facility] Comment on above: Order Comment: . Performed By: #### L 500.2500 #### [facility] [address] [place], [address] GFR/1.73 sq M.predicted among non-blacks MDRD (S/P/Bld) [Vol rate/Area] 33 mL/min/{1.73_m2} Low >60 [facility] Comment on above: Order Comment: . Result Comment: mL/m in/1.73m2 CKD-EPI Creatinine Equation (2020) Performed By: #### L 500.2500 #### [facility] [address] [place], [address] Glucose [Mass/Vol] 103 mg/dL High 70-99 [facility] Comment on above: Order Comment: 205.1 Performed By: #### L 500.2500 #### [facility] [address] [place], [address] Potassium [Moles/Vol] 2.9 mmol/L Low 3.3-5.1 [facility] Comment on above: Order Comment: .1 Performed By: #### L 500.2500 #### [facility] [address] [place], [address] Sodium [Moles/Vol] 141 mmol/L Normal 133-145 [facility] Comment on above: Order Comment: 205.1 Performed By: #### L 500.2500 #### [facility] [address] [place], [address] Urea nitrogen [Mass/Vol] 35 mg/dL High 4-19 [facility] Comment on above: Order Comment: 205.1 Performed By: #### L 500.2500 #### [facility] [address] [place], [place], [id number] Carbon dioxide, total [Moles /volume] in Central venous bloodOrdered By: Lashanda Stone on 10-27-2024 CO2 [Moles/Vol] 32.3 mmol/L High 21.0-32.0 [facility] Chloride assayOrdered By: Kika Stone on 10-27-2024 Chloride [Moles/Vol] 99 mmol/L 98-108 [facility] Glomerular filtration rate ( GFR) estimation/1.73 sq m using serum, plasma, or whole bOrdered By: Lashanda Stone on 10-27-2024 GFR/1.73 sq M.predicted among non-blacks MDRD (S/P/Bld) [Vol rate/Area] 33 mL/min/{1.73_m2} Low >60 [facility] Comment on above: mL/min/1.73m2 CKD-EP I Creatinine Equation (2020) Potassium measurement (mass/ volume)Ordered By: Lashanda Stone on 10-27-2024 Potassium (Unsp spec) [Mass/Vol] 2.9 mmol/L Low 3.3-5.1 [facility] Serum creatinine measurement (mass/volume)Ordered By: Lashanda Stone on 10-27-2024 Creatinine [Mass/Vol] 1.56 mg/dL High 0.70-1.20 [facility] Serum glucose measurement (m ass/volume)Ordered By: Lashanda Stone on 10-27-2024 Glucose [Mass/Vol] 103 mg/dL High 70-99 [facility] Serum or plasma calcium thanh urement (mass/volume)Ordered By: Lashanda Stone on 10-27-2024 Calcium [Mass/Vol] 9.4 mg/dL 7.6-11.0 [facility] Serum or plasma urea nitroge n measurement (mass/volume)Ordered By: Lashanda Stone on 10-27-2024 Urea nitrogen [Mass/Vol] 35 mg/dL High 4-19 [facility] Sodium levelOrdered By: Krysten Stone on 10-27-2024 Sodium [Moles/Vol] 141 mmol/L 133-145 [facility] Anion gap in Serum or Plasma Ordered By: Lashanda Stone on 10-06-2024 Anion gap [Moles/Vol] 11 mmol/L 5- [facility] BUN/creatinine ratioOrdered By: Lashanda Stone on 10-06-2024 Urea nitrogen/Creatinine [Mass ratio] 17.3 mg/mg 10- [facility] Basic Metabolic Profile (BMP )on 10-06-2024 BUN/CRE 17.3 RATIO Normal - [facility] Comment on above: Order Comment: .1 Performed By: #### L 500.2500 #### [facility] [address] [place], [address] Calcium [Mass/Vol] 9.1 mg/dL Normal 7.6-11.0 [facility] Comment on above: Order Comment: 205.1 Performed By: #### L 500.2500 #### [facility] [address] [place], [address] Chloride [Moles/Vol] 104 mmol/L Normal 98-108 [facility] Comment on above: Order Comment: 205.1 Performed By: #### L 500.2500 #### [facility] [address] [place], [address] CO2 [Moles/Vol] 26.3 mmol/L Normal 21.0-32.0 [facility] Comment on above: Order Comment: 205.1 Performed By: #### L 500.2500 #### [facility] [address] [place], [address] Creatinine [Mass/Vol] 1.08 mg/dL Normal 0.70-1.20 [facility] Comment on above: Order Comment: 205.1 Performed By: #### L 500.2500 #### [facility] [address] [place], [address] GAP 11 Normal 5-15 [facility] Comment on above: Order Comment: 205.1 Performed By: #### L 500.2500 #### [facility] [address] [place], [address] GFR/1.73 sq M.predicted among non-blacks MDRD (S/P/Bld) [Vol rate/Area] 52 mL/min/{1.73_m2} Low >60 [facility] Comment on above: Order Comment: 205.1 Result Comment: mL/m in/1.73m2 CKD-EPI Creatinine Equation (2020) Performed By: #### L 500.2500 #### [facility] [address] [place], [address] Glucose [Mass/Vol] 102 mg/dL High 70-99 [facility] Comment on above: Order Comment: 205.1 Performed By: #### L 500.2500 #### [facility] [address] [place], [address] Potassium [Moles/Vol] 3.2 mmol/L Low 3.3-5.1 [facility] Comment on above: Order Comment: 205.1 Performed By: #### L 500.2500 #### [facility] [address] [place], [address] Sodium [Moles/Vol] 141 mmol/L Normal 133-145 [facility] Comment on above: Order Comment: 205.1 Performed By: #### L 500.2500 #### [facility] [address] [place], [place], [address] Urea nitrogen [Mass/Vol] 19 mg/dL Normal 4-19 [facility] Comment on above: Order Comment: 205.1 Performed By: #### L 500.2500 #### [facility] [address] [place], [place], [address] Carbon dioxide, total [Moles /volume] in Central venous bloodOrdered By: Lashanda Stone on 10-06-2024 CO2 [Moles/Vol] 26.3 mmol/L 21.0-32.0 [facility] Chloride assayOrdered By: Kika Stone on 10-06-2024 Chloride [Moles/Vol] 104 mmol/L 98-108 [facility] GFR/1.73 sq M.predicted wali g non-blacks MDRD (S/P/Bld) [Vol rate/Area]Ordered By: Lashanda Stone on 10-06-2024 Estimated GFR (MDRD) Non-Af Amer 52 Low >60 [facility] Comment on above: mL/min/1.73m2 CKD-EP I Creatinine Equation (2020) Glomerular filtration rate ( GFR) estimation/1.73 sq m using serum, plasma, or whole bOrdered By: Lashanda Stone on 10-06-2024 GFR/1.73 sq M.predicted among non-blacks MDRD (S/P/Bld) [Vol rate/Area] 52 mL/min/{1.73_m2} Low >60 [facility] Comment on above: mL/min/1.73m2 CKD-EP I Creatinine Equation (2020) Potassium (Unsp spec) [Mass/ Vol]Ordered By: Lashanda Stone on 10-06-2024 Potassium [Moles/Vol] 3.2 mmol/L Low 3.3-5.1 [facility] Potassium measurement (mass/ volume)Ordered By: Lashanda Stone on 10-06-2024 Potassium (Unsp spec) [Mass/Vol] 3.2 mmol/L Low 3.3-5.1 [facility] Serum creatinine measurement (mass/volume)Ordered By: Lashanda Stone on 10-06-2024 Creatinine [Mass/Vol] 1.08 mg/dL 0.70-1.20 [facility] Serum glucose measurement (m ass/volume)Ordered By: Lashanda Stone on 10-06-2024 Glucose [Mass/Vol] 102 mg/dL High 70-99 [facility] Serum or plasma calcium thanh urement (mass/volume)Ordered By: Lashanda Stone on 10-06-2024 Calcium [Mass/Vol] 9.1 mg/dL 7.6-11.0 [facility] Serum or plasma urea nitroge n measurement (mass/volume)Ordered By: Lashanda Stone on 10-06-2024 Urea nitrogen [Mass/Vol] 19 mg/dL 4-19 [facility] Sodium levelOrdered By: Krysten Stone on 10-06-2024 Sodium [Moles/Vol] 141 mmol/L 133-145 [facility] Anion gap in Serum or Plasma Ordered By: Lashanda Stone on 10-01-2024 Anion gap [Moles/Vol] 11 mmol/L - [facility] BUN/creatinine ratioOrdered By: Lashanda Stone on 10-01-2024 Urea nitrogen/Creatinine [Mass ratio] 19.2 mg/mg 10-20 [facility] Basic Metabolic Profile (BMP )on 10-01-2024 Chloride [Moles/Vol] 106 mmol/L Normal 98-108 [facility] Comment on above: Order Comment: 205.1 Performed By: #### L 500.2500 #### [facility] [address] [place], [place], [id number] GAP 11 Normal - [facility] Comment on above: Order Comment: 205.1 Performed By: #### L 500.2500 #### [facility] [address] [place], [place], [id number] Carbon dioxide, total [Moles /volume] in Central venous bloodOrdered By: Lashanda Stone on 10-01-2024 CO2 [Moles/Vol] 25.7 mmol/L 21.0-32.0 [facility] Chloride assayOrdered By: Kika Stone on 10-01-2024 Chloride [Moles/Vol] 106 mmol/L 98-108 [facility] GFR/1.73 sq M.predicted wali g non-blacks MDRD (S/P/Bld) [Vol rate/Area]Ordered By: Lashanda Stone on 10-01-2024 Estimated GFR (MDRD) Non-Af Amer 47 Low >60 [facility] Comment on above: mL/min/1.73m2 CKD-EP I Creatinine Equation (2020) Glomerular filtration rate ( GFR) estimation/1.73 sq m using serum, plasma, or whole bOrdered By: Lashanda Stone on 10-01-2024 GFR/1.73 sq M.predicted among non-blacks MDRD (S/P/Bld) [Vol rate/Area] 47 mL/min/{1.73_m2} Low >60 [facility] Comment on above: mL/min/1.73m2 CKD-EP I Creatinine Equation (2020) Potassium (Unsp spec) [Mass/ Vol]Ordered By: Lashanda Stone on 10-01-2024 Potassium [Moles/Vol] 3.4 mmol/L 3.3-5.1 [facility] Potassium measurement (mass/ volume)Ordered By: Lashanda Stone on 10-01-2024 Potassium (Unsp spec) [Mass/Vol] 3.4 mmol/L 3.3-5.1 [facility] Serum creatinine measurement (mass/volume)Ordered By: Lashanda Stone on 10-01-2024 Creatinine [Mass/Vol] 1.16 mg/dL 0.70-1.20 [facility] Serum glucose measurement (m ass/volume)Ordered By: Lashanda Stone on 10-01-2024 Glucose [Mass/Vol] 99 mg/dL 70-99 [facility] Serum or plasma calcium thanh urement (mass/volume)Ordered By: Lashanda Stone on 10-01-2024 Calcium [Mass/Vol] 9.0 mg/dL 7.6-11.0 [facility] Serum or plasma urea nitroge n measurement (mass/volume)Ordered By: Lashanda Stone on 10-01-2024 Urea nitrogen [Mass/Vol] 22 mg/dL High 4-19 [facility] Sodium levelOrdered By: Krysten Stone on 10-01-2024 Sodium [Moles/Vol] 142 mmol/L 133-145 [facility] Hemoglobin A1con 09-07-2024 HbA1c (Bld) [Mass fraction] 5.9 % Normal <=5.6 [facility] Comment on above: Order Comment: Performed By: #### L 501.9985 #### [facility] [address] [place], [place], [id number] (355) Hemoglobin A1c percentageOrd ered By: [facility] on 09-07-2024 HbA1c (Bld) [Mass fraction] 5.9 % >5.7 [facility] Basic Metabolic Profile (BMP )on 08-04-2024 BUN/CRE 26.0 RATIO High 10-20 [facility] Comment on above: Order Comment: Performed By: #### L 500.2500 #### [facility] [address] [place], [address] CA,Total 8.6 mg/dL Normal 8.5-10.1 [facility] Comment on above: Order Comment: Performed By: #### L 500.2500 #### [facility] [address] [place], [address] Chloride [Moles/Vol] 111 mmol/L High 98-107 [facility] Comment on above: Order Comment: Performed By: #### L 500.2500 #### [facility] [address] [place], [address] CO2 [Moles/Vol] 23.0 mmol/L Normal 21.0-32.0 [facility] Comment on above: Order Comment: Performed By: #### L 500.2500 #### [facility] [address] [place], [address] Creatinine [Mass/Vol] 0.96 mg/dL Normal 0.55-1.02 [facility] Comment on above: Order Comment: Result Comment: The validity of the calculated GFR GFRAA in patients over 70 years has not been determined. Clinical correlation is essential. Performed By: #### L 500.2500 #### [facility] [address] [place], [address] EST GFR - AA 72 mL/min Normal >60 [facility] Comment on above: Order Comment: Result Comment: Afri can Bahraini GFR Calc Performed By: #### L 500.2500 #### [facility] [address] [place], [address] GAP 9 Normal 5-15 [facility] Comment on above: Order Comment: Performed By: #### L 500.2500 #### [facility] [address] [place], [address] GFR/1.73 sq M.predicted among non-blacks MDRD (S/P/Bld) [Vol rate/Area] 59 mL/min/{1.73_m2} Low >60 [facility] Comment on above: Order Comment: Result Comment: Non- GFR Calc Performed By: #### L 500.2500 #### [facility] [address] [place], [address] Glucose [Mass/Vol] 104 mg/dL Normal 74-106 [facility] Comment on above: Order Comment: Result Comment: Fast ing Glucose result from 100 to 125 mg/dL suggests IMPAIRED HOMEOSTASIS per A.D.A. criteria. Performed By: #### L 500.2500 #### [facility] [address] [place], [address] Potassium [Moles/Vol] 3.7 mmol/L Normal 3.5-5.1 [facility] Comment on above: Order Comment: Performed By: #### L 500.2500 #### [facility] [address] [place], [address] Sodium [Moles/Vol] 142 mmol/L Normal 136-145 [facility] Comment on above: Order Comment: Performed By: #### L 500.2500 #### [facility] [address] [place], [place], [id number] (690) Urea nitrogen [Mass/Vol] 25 mg/dL High 7-18 [facility] Comment on above: Order Comment: Performed By: #### L 500.2500 #### [facility] [address] [place], [place], [address] Blood urea nitrogen (BUN)/cr eatinine ratioOrdered By: Marcos Brown on 08-04-2024 Urea nitrogen/Creatinine [Mass ratio] 26.0 mg/mg High 10-20 [facility] Carbon dioxide measurementOr dered By: Marcos Brown on 08-04-2024 CO2 [Moles/Vol] 23.0 mmol/L 21.0-32.0 [facility] Chloride measurementOrdered By: Marcos Brown on 08-04-2024 Chloride [Moles/Vol] 111 mmol/L High 98-107 [facility] Estimated glomerular filtrat ion rate (GFR) AmericanOrdered By: Marcos Brown on 08-04-2024 Estimated GFR (MDRD) Amer 72 mL/min >60 [facility] Comment on above: GFR Calc Glomerular filtration rate ( GFR) estimationOrdered By: Marcos Brown on 08-04-2024 Estimated GFR (MDRD) Non-Af Amer 59 mL/min Low >60 [facility] Comment on above: Non- GFR Calc GFR/1.73 sq M.predicted among non-blacks MDRD (S/P/Bld) [Vol rate/Area] 59 mL/min/{1.73_m2} Low >60 [facility] Comment on above: Non- GFR Calc Glucose measurementOrdered B y: Marcos Brown on 08-04-2024 Glucose [Mass/Vol] 104 mg/dL 74-106 [facility] Comment on above: Fasting Glucose resu lt from 100 to 125 mg/dL suggests IMPAIRED HOMEOSTASIS per A.D.A. criteria. Potassium measurementOrdered By: Marcos Brown on 08-04-2024 Potassium [Moles/Vol] 3.7 mmol/L 3.5-5.1 [facility] Serum anion gap measurementO rdered By: Marcos Brown on 08-04-2024 Anion gap [Moles/Vol] 9 mmol/L 5-15 [facility] Serum or plasma calcium thanh urement (mass/volume)Ordered By: Marcos Brown on 08-04-2024 Calcium [Mass/Vol] 8.6 mg/dL 8.5-10.1 [facility] Serum or plasma creatinine m easurement (mass/volume)Ordered By: Marcos Brown on 08-04-2024 Creatinine [Mass/Vol] 0.96 mg/dL 0.55-1.02 [facility] Comment on above: The validity of the calculated GFR & GFRAA in patients over 70 years has not been determined. Clinical correlation is essential. Serum or plasma urea nitroge n measurement (mass/volume)Ordered By: Marcos Brown on 08-04-2024 Urea nitrogen [Mass/Vol] 25 mg/dL High 7-18 [facility] Sodium levelOrdered By: Brain Brown on 08-04-2024 Sodium [Moles/Vol] 142 mmol/L 136-145 [facility] Basic Metabolic Profile (BMP )on 06-02-2024 BUN/CRE 25.5 RATIO High 10-20 [facility] Comment on above: Order Comment: 205.1 Performed By: #### L 500.2500 #### [facility] [address] [place], [address] CA,Total 8.2 mg/dL Low 8.5-10.1 [facility] Comment on above: Order Comment: 205.1 Performed By: #### L 500.2500 #### [facility] [address] [place], [address] Chloride [Moles/Vol] 113 mmol/L High 98-107 [facility] Comment on above: Order Comment: 205.1 Performed By: #### L 500.2500 #### [facility] [address] [place], [address] CO2 [Moles/Vol] 28.0 mmol/L Normal 21.0-32.0 [facility] Comment on above: Order Comment: 205.1 Performed By: #### L 500.2500 #### [facility] [address] [place], [address] Creatinine [Mass/Vol] 1.02 mg/dL Normal 0.55-1.02 [facility] Comment on above: Order Comment: 205.1 Result Comment: The validity of the calculated GFR GFRAA in patients over 70 years has not been determined. Clinical correlation is essential. Performed By: #### L 500.2500 #### [facility] [address] [place], [address] EST GFR - AA 67 mL/min Normal >60 [facility] Comment on above: Order Comment: 205.1 Result Comment: Afri can Bahraini GFR Calc Performed By: #### L 500.2500 #### [facility] [address] [place], [address] GAP 2 Low 5-15 [facility] Comment on above: Order Comment: 205.1 Performed By: #### L 500.2500 #### [facility] [address] [place], [address] GFR/1.73 sq M.predicted among non-blacks MDRD (S/P/Bld) [Vol rate/Area] 55 mL/min/{1.73_m2} Low >60 [facility] Comment on above: Order Comment: 205.1 Result Comment: Non- GFR Calc Performed By: #### L 500.2500 #### [facility] [address] [place], [address] Glucose [Mass/Vol] 94 mg/dL Normal 74-106 [facility] Comment on above: Order Comment: 205.1 Performed By: #### L 500.2500 #### [facility] [address] [place], [address] Potassium [Moles/Vol] 3.5 mmol/L Normal 3.5-5.1 [facility] Comment on above: Order Comment: 205.1 Performed By: #### L 500.2500 #### [facility] [address] [place], [address] Sodium [Moles/Vol] 143 mmol/L Normal 136-145 [facility] Comment on above: Order Comment: 205.1 Performed By: #### L 500.2500 #### [facility] [address] [place], [address] Urea nitrogen [Mass/Vol] 26 mg/dL High 7-18 [facility] Comment on above: Order Comment: 205.1 Performed By: #### L 500.2500 #### [facility] [address] [place], [address] Blood urea nitrogen (BUN)/cr eatinine ratioOrdered By: [facility] on 06-02-2024 Urea nitrogen/Creatinine [Mass ratio] 25.5 mg/mg High 10-20 [facility] Carbon dioxide measurementOr dered By: [facility] on 06-02-2024 CO2 [Moles/Vol] 28.0 mmol/L 21.0-32.0 [facility] Chloride measurementOrdered By: [facility] on 06-02-2024 Chloride [Moles/Vol] 113 mmol/L High 98-107 [facility] Estimated glomerular filtrat ion rate (GFR) AmericanOrdered By: [facility] on 06-02-2024 Estimated GFR (MDRD) Amer 67 mL/min >60 [facility] Comment on above: GFR Calc Glomerular filtration rate ( GFR) estimationOrdered By: [facility] on 06-02-2024 Estimated GFR (MDRD) Non-Af Amer 55 mL/min Low >60 [facility] Comment on above: Non- GFR Calc Glucose measurementOrdered B y: [facility] on 06-02-2024 Glucose [Mass/Vol] 94 mg/dL 74-106 [facility] Potassium measurementOrdered By: [facility] on 06-02-2024 Potassium [Moles/Vol] 3.5 mmol/L 3.5-5.1 [facility] Serum anion gap measurementO rdered By: [facility] on 06-02-2024 Anion gap [Moles/Vol] 2 mmol/L Low 5-15 [facility] Serum or plasma calcium thanh urement (mass/volume)Ordered By: [facility] on 06-02-2024 Calcium [Mass/Vol] 8.2 mg/dL Low 8.5-10.1 [facility] Serum or plasma creatinine m easurement (mass/volume)Ordered By: [facility] on 06-02-2024 Creatinine [Mass/Vol] 1.02 mg/dL 0.55-1.02 [facility] Comment on above: The validity of the calculated GFR & GFRAA in patients over 70 years has not been determined. Clinical correlation is essential. Serum or plasma urea nitroge n measurement (mass/volume)Ordered By: [facility] on 06-02-2024 Urea nitrogen [Mass/Vol] 26 mg/dL High 7-18 [facility] Sodium levelOrdered By: [facility] on 06-02-2024 Sodium [Moles/Vol] 143 mmol/L 136-145 [facility] CNOVon 05-13-2024 CNOV Office Visit (CVAKPO) MYRNA SARAVIA ([id number]) 1945 F Date Time Provider Department 05/13/24 2:30 PM APURVA BRUNO During your visit today, we recorded the following information about you: Pulse Blood pressure Weight Height 68/minute 146/83 80.3 kg 1.626 m Apurva Bruno APRN.CNP 05/14/2024 11:01 AM Signed [facility] Established Visit Consultation is requested by: No referring provider defined for this encounter. PCP: Evin Garcia ([facility]) [address] [place] [address] [facility]EREBROV[facility] HISTORY Myrna Saravia is a 77 year old female presenting for hospital discharge follow up. Admitted to [facility] 11/10-11/16/22. From discharge summary: 77-year-old female presented [facility] for acute onset of right upper extremity and right lower extremity weakness. Then was called and she was presented to [facility] where telestroke was called. She [...] received cardiac event monitor -started Remeron in [facility] for mood (crying, bouts of [...] -presents with her daughter Brooklynn -in different detention facility, moved about a week ago- [facility] in [place] -aphasia and dysarthria improving -she still cannot [...] with he (more content not included)... Normal [facility] Basic Metabolic Profile (BMP )on 04-13-2024 BUN/CRE 25.2 RATIO High 10-20 [facility] Comment on above: Order Comment: 205.1 Performed By: #### L 500.2500 #### [facility] [address] [place], [address] CA,Total 8.6 mg/dL Normal 8.5-10.1 [facility] Comment on above: Order Comment: 205.1 Performed By: #### L 500.2500 #### [facility] [address] [place], [address] Chloride [Moles/Vol] 112 mmol/L High 98-107 [facility] Comment on above: Order Comment: 205.1 Performed By: #### L 500.2500 #### [facility] [address] [place], [address] CO2 [Moles/Vol] 27.0 mmol/L Normal 21.0-32.0 [facility] Comment on above: Order Comment: 205.1 Performed By: #### L 500.2500 #### [facility] [address] [place], [address] Creatinine [Mass/Vol] 0.99 mg/dL Normal 0.55-1.02 [facility] Comment on above: Order Comment: 205.1 Result Comment: The validity of the calculated GFR GFRAA in patients over 70 years has not been determined. Clinical correlation is essential. Performed By: #### L 500.2500 #### [facility] [address] [place], [address] EST GFR - AA 69 mL/min Normal >60 [facility] Comment on above: Order Comment: 205.1 Result Comment: Afri can Bahraini GFR Calc Performed By: #### L 500.2500 #### [facility] [address] [place], [address] GAP 6 Normal 5-15 [facility] Comment on above: Order Comment: 205.1 Performed By: #### L 500.2500 #### [facility] [address] [place], [address] GFR/1.73 sq M.predicted among non-blacks MDRD (S/P/Bld) [Vol rate/Area] 57 mL/min/{1.73_m2} Low >60 [facility] Comment on above: Order Comment: 205.1 Result Comment: Non- GFR Calc Performed By: #### L 500.2500 #### [facility] [address] [place], [address] Glucose [Mass/Vol] 97 mg/dL Normal 74-106 [facility] Comment on above: Order Comment: 205.1 Performed By: #### L 500.2500 #### [facility] [address] [place], [address] Potassium [Moles/Vol] 3.4 mmol/L Low 3.5-5.1 [facility] Comment on above: Order Comment: 205.1 Performed By: #### L 500.2500 #### [facility] [address] [place], [address] Sodium [Moles/Vol] 145 mmol/L Normal 136-145 [facility] Comment on above: Order Comment: 205.1 Performed By: #### L 500.2500 #### [facility] [address] [place], [address] Urea nitrogen [Mass/Vol] 25 mg/dL High 7-18 [facility] Comment on above: Order Comment: 205.1 Performed By: #### L 500.2500 #### [facility] [address] [place], [address] CBC-Complete Blood Cnt No Di jerzyon 04-13-2024 Erythrocyte distribution width (RBC) [Ratio] 13.8 % Normal 11.6-14.6 [facility] Comment on above: Order Comment: 205.1 Performed By: #### L 500.2500 #### [facility] [address] [place], [address] Hematocrit (Bld) [Volume fraction] 36.1 % Low 37-47 [facility] Comment on above: Order Comment: 205.1 Performed By: #### L 500.2500 #### [facility] [address] [place], [address] Hemoglobin (Bld) [Mass/Vol] 11.4 g/dL Low 12.0-15.0 [facility] Comment on above: Order Comment: .1 Performed By: #### L 500.2500 #### [facility] [address] [place], [address] MCH (RBC) [Entitic mass] 29.8 pg Normal 27.0-32.0 [facility] Comment on above: Order Comment: 205.1 Performed By: #### L 500.2500 #### [facility] [address] [place], [address] MCHC (RBC) [Mass/Vol] 31.6 g/dL Low 32-36 [facility] Comment on above: Order Comment: 205.1 Performed By: #### L 500.2500 #### [facility] [address] [place], [address] MCV (RBC) [Entitic vol] 94.5 fL Normal 81-99 [facility] Comment on above: Order Comment: 205.1 Performed By: #### L 500.2500 #### [facility] [address] [place], [address] Platelet mean volume (Bld) [Entitic vol] 10.2 fL Normal 6.2-12.0 [facility] Comment on above: Order Comment: 205.1 Performed By: #### L 500.2500 #### [facility] [address] [place], [address] Platelets (Bld) [#/Vol] 154 10*3/uL Normal 150-450 [facility] Comment on above: Order Comment: 205.1 Performed By: #### L 500.2500 #### [facility] [address] [place], [address] RBC (Bld) [#/Vol] 3.82 10*6/uL Low 4.2-5.4 [facility] Comment on above: Order Comment: 205.1 Performed By: #### L 500.2500 #### [facility] [address] [place], [address] RDW SD 47.7 fl High 35.1-43.9 [facility] Comment on above: Order Comment: 205.1 Performed By: #### L 500.2500 #### [facility] [address] [place], [address] WBC (Bld) [#/Vol] 5.1 10*3/uL Normal 4.4-11.0 [facility] Comment on above: Order Comment: 205.1 Performed By: #### L 500.2500 #### [facility] [address] [place], [address] Lipid Profileon 03-23-2024 Cholesterol [Mass/Vol] 112 mg/dL Normal 200 [facility] Comment on above: Order Comment: 205.1 Result Comment: <200 mg/dL Desirable 200-240 mg/dL Borderline >240 mg/dL High Risk Performed By: #### L 500.2500 #### [facility] [address] [place], [address] Cholesterol in HDL [Mass/Vol] 50 mg/dL Normal [facility] Comment on above: Order Comment: 205.1 Result Comment: The drugs N-Acetylcysteine and Metamizole may falsely depress this assay. Reference Range HDL <40 mg/dL Low HDL Cholesterol HDL >or= 60 mg/dL High HDL Cholesterol Performed By: #### L 500.2500 #### [facility] [address] [place], [address] Cholesterol in LDL [Mass/Vol] 53 mg/dL Normal 0-130 [facility] Comment on above: Order Comment: 205.1 Performed By: #### L 500.2500 #### [facility] [address] [place], [address] Cholesterol in VLDL [Mass/Vol] 9 mg/dL Normal 5-40 [facility] Comment on above: Order Comment: 205.1 Performed By: #### L 500.2500 #### [facility] [address] [place], [address] Triglyceride [Mass/Vol] 46 mg/dL Normal [facility] Comment on above: Order Comment: 205.1 Result Comment: The drugs N-Acetylcysteine and Metamizole may falsely depress this assay. Serum Triglycerides Reference Interval Normal <150 mg/dL Borderline high 150 - 199 mg/dL High 200 - 499 mg/dL Very High > or = 500 mg/dL Performed By: #### L 500.2500 #### [facility] [address] [place], [address] Urine Cultureon 02-29-2024 [facility] Providencia stuartii Mustang Count 11,000-25,000 Providencia stuartii: REACTION Ampicillin Islt [...] TMP SMX Islt KARL <=[address] [facility] Comment on above: Performed By: #### M 100.2200, L400.0001 #### [facility] [address] [place], [address] Urinalysis, Completeon 02-26 WBC 0-5 SEEN Normal 0-5 [facility] Comment on above: Order Comment: ARY TER SPECIMEN Performed By: #### M 100.2200, L400.0001 #### [facility] [address] [place], [address] BACTERIA 0 SEEN Normal None Seen [facility] Comment on above: Order Comment: ARY TER SPECIMEN Performed By: #### M 100.2200, L400.0001 #### [facility] [address] [place], [address] EPI,SQUAMOUS 0 SEEN Normal 5-10 [facility] Comment on above: Order Comment: ARY TER SPECIMEN Performed By: #### M 100.2200, L400.0001 #### [facility] [address] [place], [address] Mucus Ql (Urine sed) 0 SEEN Normal [facility] Comment on above: Order Comment: ARY TER SPECIMEN Performed By: #### M 100.2200, L400.0001 #### [facility] [address] [place], [address] RBC 0 SEEN Normal 0-5 [facility] Comment on above: Order Comment: ARY TER SPECIMEN Performed By: #### M 100.2200, L400.0001 #### [facility] [address] [place], [address] Basic Metabolic Profile (BMP )on 02-24-2024 Chloride [Moles/Vol] 110 mmol/L High 98-107 [facility] Comment on above: Order Comment: Result Comment: . AMENDED REPORT 02/24/246 CL previously reported as: 110 H mmol/L Performed By: #### L 100.0500, L500.2500 #### [facility] [address] [place], [address] CO2 [Moles/Vol] 29.0 mmol/L Normal 21.0-32.0 [facility] Comment on above: Order Comment: Result Comment: . AMENDED REPORT 02/24/241205 CO2 previously reported as: 29.0 mmol/L Performed By: #### L 100.0500, L500.2500 #### [facility] [address] [place], [address] GAP 3 Low 5-15 [facility] Comment on above: Order Comment: Result Comment: . AMENDED REPORT 02/24/241205 GAP previously reported as: 3 L Performed By: #### L 100.0500, L500.2500 #### [facility] [address] [place], [address] Potassium [Moles/Vol] 3.7 mmol/L Normal 3.5-5.1 [facility] Comment on above: Order Comment: Result Comment: . AMENDED REPORT 02/24/241205 K previously reported as: 3.7 mmol/L Performed By: #### L 100.0500, L500.2500 #### [facility] [address] [place], [address] BUN/CRE 24.8 RATIO High 10-20 [facility] Comment on above: Order Comment: Result Comment: . AMENDED REPORT 02/24/245 BUN/CRE previously reported as: 24.8 H RATIO Performed By: #### L 100.0500, L500.2500 #### [facility] [address] [place], [address] CA,Total 8.9 mg/dL Normal 8.5-10.1 [facility] Comment on above: Order Comment: Result Comment: . AMENDED REPORT 02/24/241204 CA previously reported as: 8.9 mg/dL Performed By: #### L 100.0500, L500.2500 #### [facility] [address] [place], [address] Creatinine [Mass/Vol] 1.09 mg/dL High 0.55-1.02 [facility] Comment on above: Order Comment: Result Comment: [...] Performed By: #### L 100.0500, L500.2500 #### [facility] [address] [place], [address] EST GFR - AA 62 mL/min Normal >60 [facility] Comment on above: Order Comment: Result Comment: Afri can Bahraini GFR Calc . AMENDED REPORT 02/24/241204 EST GFR - AA previously reported as: 62 mL/min GFR Calc Performed By: #### L 100.0500, L500.2500 #### [facility] [address] [place], [address] GFR/1.73 sq M.predicted among non-blacks MDRD (S/P/Bld) [Vol rate/Area] 51 mL/min/{1.73_m2} Low >60 [facility] Comment on above: Order Comment: Result Comment: Non- GFR Calc . AMENDED REPORT 02/24/241204 EST GFR previously reported as: 51 L mL/min Non- GFR Calc Performed By: #### L 100.0500, L500.2500 #### [facility] [address] [place], [address] Sodium [Moles/Vol] 142 mmol/L Normal 136-145 [facility] Comment on above: Order Comment: Result Comment: . AMENDED REPORT 02/24/24 1205 NA previously reported as: 142 mmol/L Performed By: #### L 100.0500, L500.2500 #### [facility] [address] [place], [address] Glucose [Mass/Vol] 95 mg/dL Normal 74-106 [facility] Comment on above: Order Comment: Result Comment: . AMENDED REPORT 02/24/24 1204 GLU previously reported as: 95 mg/dL Performed By: #### L 100.0500, L500.2500 #### [facility] [address] [place], [address] Urea nitrogen [Mass/Vol] 27 mg/dL High 7-18 [facility] Comment on above: Order Comment: Result Comment: . AMENDED REPORT 02/24/241203 BUN previously reported as: 27 H mg/dL Performed By: #### L 100.0500, L500.2500 #### [facility] [address] [place], [address] CBC-Complete Blood Cnt No Di ffon 02-24-2024 Erythrocyte distribution width (RBC) [Ratio] 13.5 % Normal 11.6-14.6 [facility] Comment on above: Order Comment: Result Comment: . AMENDED REPORT 02/24/24 1200 RDW CV previously reported as: 13.5 % Performed By: #### L 100.0500, L500.2500 #### [facility] [address] [place], [address] MCH (RBC) [Entitic mass] 30.8 pg Normal 27.0-32.0 [facility] Comment on above: Order Comment: Result Comment: . AMENDED REPORT 02/24/24 1200 MCH previously reported as: 30.8 pg Performed By: #### L 100.0500, L500.2500 #### [facility] [address] [place], [address] MCHC (RBC) [Mass/Vol] 32.2 g/dL Normal 32-36 [facility] Comment on above: Order Comment: Result Comment: . AMENDED REPORT 02/24/24 1200 MCHC previously reported as: 32.2 g/dL Performed By: #### L 100.0500, L500.2500 #### [facility] [address] [place], [address] Platelet mean volume (Bld) [Entitic vol] 9.2 fL Normal 6.2-12.0 [facility] Comment on above: Order Comment: Result Comment: . AMENDED REPORT 02/24/24 1200 MPV previously reported as: 9.2 fl Performed By: #### L 100.0500, L500.2500 #### [facility] [address] [place], [address] Platelets (Bld) [#/Vol] 256 10*3/uL Normal 150-450 [facility] Comment on above: Order Comment: Result Comment: . AMENDED REPORT 02/24/24 1200 PLT previously reported as: 256 K/mm3 Performed By: #### L 100.0500, L500.2500 #### [facility] [address] [place], [address] RDW SD 47.5 fl High 35.1-43.9 [facility] Comment on above: Order Comment: Result Comment: . AMENDED REPORT 02/24/24 1200 RDW SD previously reported as: 47.5 H fl Performed By: #### L 100.0500, L500.2500 #### [facility] [address] [place], [address] Hematocrit (Bld) [Volume fraction] 39.4 % Normal 37-47 [facility] Comment on above: Order Comment: Result Comment: . AMENDED REPORT 02/24/241158 HCT previously reported as: 39.4 % Performed By: #### L 100.0500, L500.2500 #### [facility] [address] [place], [address] Hemoglobin (Bld) [Mass/Vol] 12.7 g/dL Normal 12.0-15.0 [facility] Comment on above: Order Comment: Result Comment: . AMENDED REPORT 02/24/241158 HGB previously reported as: 12.7 g/dL Performed By: #### L 100.0500, L500.2500 #### [facility] [address] [place], [address] MCV (RBC) [Entitic vol] 95.4 fL Normal 81-99 [facility] Comment on above: Order Comment: Result Comment: . AMENDED REPORT 02/24/241158 MCV previously reported as: 95.4 fL Performed By: #### L 100.0500, L500.2500 #### [facility] [address] [place], [address] RBC (Bld) [#/Vol] 4.13 10*6/uL Low 4.2-5.4 [facility] Comment on above: Order Comment: Result Comment: . AMENDED REPORT 02/24/241158 RBC previously reported as: 4.13 L M/mm3 Performed By: #### L 100.0500, L500.2500 #### [facility] [address] [place], [address] WBC (Bld) [#/Vol] 5.8 10*3/uL Normal 4.4-11.0 [facility] Comment on above: Order Comment: Result Comment: . AMENDED REPORT 02/24/24 1159 WBC previously reported as: 5.8 K/mm3 Performed By: #### L 100.0500, L500.2500 #### [facility] [address] [place], [address] Basic Metabolic Profile (BMP )on 01-09-2024 BUN/CRE 29.7 RATIO High 10-20 [facility] Comment on above: Order Comment: Performed By: #### L 100.0500, L500.2500 #### [facility] [address] [place], [address] CA,Total 8.9 mg/dL Normal 8.5-10.1 [facility] Comment on above: Order Comment: Performed By: #### L 100.0500, L500.2500 #### [facility] [address] [place], [address] Chloride [Moles/Vol] 110 mmol/L High 98-107 [facility] Comment on above: Order Comment: Performed By: #### L 100.0500, L500.2500 #### [facility] [address] [place], [address] CO2 [Moles/Vol] 28.0 mmol/L Normal 21.0-32.0 [facility] Comment on above: Order Comment: Performed By: #### L 100.0500, L500.2500 #### [facility] [address] [place], [address] Creatinine [Mass/Vol] 1.01 mg/dL Normal 0.55-1.02 [facility] Comment on above: Order Comment: Result Comment: The validity of the calculated GFR GFRAA in patients over 70 years has not been determined. Clinical correlation is essential. Performed By: #### L 100.0500, L500.2500 #### [facility] [address] [place], [address] EST GFR - AA 68 mL/min Normal >60 [facility] Comment on above: Order Comment: Result Comment: Afri can Bahraini GFR Calc Performed By: #### L 100.0500, L500.2500 #### [facility] [address] [place], [address] GAP 5 Normal 5-15 [facility] Comment on above: Order Comment: Performed By: #### L 100.0500, L500.2500 #### [facility] [address] [place], [address] GFR/1.73 sq M.predicted among non-blacks MDRD (S/P/Bld) [Vol rate/Area] 56 mL/min/{1.73_m2} Low >60 [facility] Comment on above: Order Comment: Result Comment: Non- GFR Calc Performed By: #### L 100.0500, L500.2500 #### [facility] [address] [place], [address] Glucose [Mass/Vol] 89 mg/dL Normal 74-106 [facility] Comment on above: Order Comment: Performed By: #### L 100.0500, L500.2500 #### [facility] [address] [place], [address] Potassium [Moles/Vol] 3.5 mmol/L Normal 3.5-5.1 [facility] Comment on above: Order Comment: Performed By: #### L 100.0500, L500.2500 #### [facility] [address] [place], [address] Sodium [Moles/Vol] 143 mmol/L Normal 136-145 [facility] Comment on above: Order Comment: 205-1 Performed By: #### L 100.0500, L500.2500 #### [facility] [address] [place], [address] Urea nitrogen [Mass/Vol] 30 mg/dL High 7-18 [facility] Comment on above: Order Comment: Performed By: #### L 100.0500, L500.2500 #### [facility] [address] [place], [address] CBC-Complete Blood Cnt No Di ffon 01-09-2024 Erythrocyte distribution width (RBC) [Ratio] 13.6 % Normal 11.6-14.6 [facility] Comment on above: Performed By: #### L 100.0500, L500.2500 #### [facility] [address] [place], [address] Hematocrit (Bld) [Volume fraction] 38.2 % Normal 37-47 [facility] Comment on above: Performed By: #### L 100.0500, L500.2500 #### [facility] [address] [place], [address] Hemoglobin (Bld) [Mass/Vol] 12.0 g/dL Normal 12.0-15.0 [facility] Comment on above: Performed By: #### L 100.0500, L500.2500 #### [facility] [address] [place], [address] MCH (RBC) [Entitic mass] 29.4 pg Normal 27.0-32.0 [facility] Comment on above: Performed By: #### L 100.0500, L500.2500 #### [facility] [address] [place], [address] MCHC (RBC) [Mass/Vol] 31.4 g/dL Low 32-36 [facility] Comment on above: Performed By: #### L 100.0500, L500.2500 #### [facility] [address] [place], [address] MCV (RBC) [Entitic vol] 93.6 fL Normal 81-99 [facility] Comment on above: Performed By: #### L 100.0500, L500.2500 #### [facility] [address] [place], [address] Platelet mean volume (Bld) [Entitic vol] 10.0 fL Normal 6.2-12.0 [facility] Comment on above: Performed By: #### L 100.0500, L500.2500 #### [facility] [address] [place], [address] Platelets (Bld) [#/Vol] 156 10*3/uL Normal 150-450 [facility] Comment on above: Performed By: #### L 100.0500, L500.2500 #### [facility] [address] [place], [address] RBC (Bld) [#/Vol] 4.08 10*6/uL Low 4.2-5.4 [facility] Comment on above: Performed By: #### L 100.0500, L500.2500 #### [facility] [address] [place], [address] RDW SD 47.1 fl High 35.1-43.9 [facility] Comment on above: Performed By: #### L 100.0500, L500.2500 #### [facility] [address] [place], [address] WBC (Bld) [#/Vol] 5.5 10*3/uL Normal 4.4-11.0 [facility] Comment on above: Performed By: #### L 100.0500, L500.2500 #### [facility] [address] [place], [address] CNOVon 11-21-2023 CNOV Office Visit (UROLSF) MYRNA SARAVIA ([id number]) 1945 F Date Time Provider Department 11/21/23 1:45 PM LASHANDA ALBRECHT [facility] During your visit today, we recorded the following information about you: Pulse Blood pressure Height 85/minute 140/83 1.626 m Lashanda Albrecht APRN.[facility] 11/21/2023 2:31 PM Addendum ESTABLISHED PATIENT OFFICE VISIT HISTORY OF PRESENT ILLNESS Myrna Saravia is a 78 year old female who presents today in f/u. 04/14/23: Patient with a h/o urinary retention, UTI, CVA. Patient presents today in f/u. Patient now at [facility]. Recent UTI on 04/02/23. Finished a [...] during the day at the [facility]. Mostly has incontinence into her depends. Today's note: Patient with a h/o CVA, urinary retention, UTI. Patient is still residing at [facility]. Her last UTI was on 04/02/23. [...] (no units) Date Value 12/03/2022 Negative Specific Archer, Ur (no units) Date Value 12/03/2022 >=1.030 [...] mL syrup chlorthalidone (HYGROTON) 25 mg tablet Joinnus 10 billion cell -200 mg capsule polyethylene [...] PM Mod (more content not included)... Normal [facility] CNOVon 11-12-2023 CNOV Office Visit (JACOB) MYRNA SARAVIA ([id number]) 1945 F Date Time Provider Department 11/12/23 1:00 PM APURVA BRUNO During your visit today, we recorded the following information about you: Pulse Blood pressure Weight Height 62/minute 122/49 80.3 kg 1.626 m Apurva Bruno APRN.[employer] 11/12/2023 2:25 PM Signed [facility] Established Visit Consultation is requested by: No referring provider defined for this encounter. PCP: Evin Garcia ([facility]) [place] [place] [address] [facility] Myrna Saravia is a 77 year old female presenting for hospital discharge follow up. Admitted to [facility] 11/10-11/16/22. From discharge summary: 77-year-old female presented [facility] for acute onset of right upper extremity and right lower extremity weakness. Then was called and she was presented to [facility] where telestroke was called. She [...] -presents with her daughter Brooklynn -in different detention facility, moved about a week ago- [facility] in [place] -aphasia and dysarthria improving -she still cannot [...] have be (more content not included)... Normal [facility] Bilirubin Test strip Ql (U)O rdered By: Marcos Brown on 07-02-2023 Bilirubin Ql (U) Negative Negative [facility] Culture, urineOrdered By: Donnie Eugene on 07-02-2023 Bacteria identified Cx Nom (U) Proteus mirabilis [facility] Ketones Test strip Ql (U)Ord ered By: Marcos Brown on 07-02-2023 Ketones Ql (U) Negative Negative [facility] Nitrite Test strip Ql (U)Ord ered By: Marcos Brown on 07-02-2023 Nitrite Ql (U) Negative Negative [facility] Protein Test strip Ql (U)Ord ered By: Marcos Brown on 07-02-2023 Protein Ql (U) Negative Negative [facility] Urine blood detectionOrdered By: Marcos Brown on 07-02-2023 RBC Ql (U) 10 /ul Negative [facility] Urine clarityOrdered By: Daisha Brown on 07-02-2023 Clarity (U) Sl. Cloudy Clear [facility] Urine color determinationOrd ered By: Marcos Brown on 07-02-2023 Color (U) Yellow Yellow [facility] Urine glucose detectionOrder ed By: Marcos Brown on 07-02-2023 Glucose Ql (U) Normal mg/dl Normal [facility] Urine leukocyte esterase det ection by dipstickOrdered By: Marcos Brown on 07-02-2023 Leukocyte esterase Test strip Ql (U) 500 /ul Negative [facility] Urine pHOrdered By: Marcos wild on 07-02-2023 pH (U) 6.0 [pH] 5.0 - 8.0 [facility] Urine specific gravity measu rementOrdered By: Marcos Brown on 07-02-2023 Specific gravity (U) [Rel density] 1.015 1.002-1.030 [facility] Urobilinogen Auto test strip Ql (U)Ordered By: Marcos Brown on 07-02-2023 Urobilinogen Ql (U) Normal mg/dl Normal [facility] Basophil percentageOrdered B y: Marcos Brown on 06-26-2023 Chloride [Moles/Vol] 110 mmol/L 98-107 [facility] Glucose [Mass/Vol] 89 mg/dL 74-106 [facility] Potassium [Moles/Vol] 3.4 mmol/L 3.5-5.1 [facility] Sodium [Moles/Vol] 143 mmol/L 136-145 [facility] WBC (Bld) [#/Vol] 5.7 10*3/uL 4.4-11.0 [facility] Blood erythrocytes count (nu mber/volume)Ordered By: Marcos Brown on 06-26-2023 RBC (Bld) [#/Vol] 3.69 10*6/uL 4.2-5.4 [facility] Blood hemoglobin measurement (mass/volume)Ordered By: Marcos Brown on 06-26-2023 Hemoglobin (Bld) [Mass/Vol] 11.1 g/dL 12.0-15.0 [facility] Blood platelet mean volumeOr dered By: Marcos Brown on 06-26-2023 Platelet mean volume (Bld) [Entitic vol] 9.8 fL 6.2-12.0 [facility] Determination of erythrocyte mean corpuscular volume (MCV)Ordered By: Marcos Brown on 06-26-2023 MCV (RBC) [Entitic vol] 93.2 fL 81-99 [facility] Hematocrit Auto (Bld) [Volum e fraction]Ordered By: Marcos Brown on 06-26-2023 Hematocrit (Bld) [Volume fraction] 34.4 % 37-47 [facility] Laboratory - Chemistry and C hemistry - challengeOrdered By: Marcos Brown on 06-26-2023 CO2 [Moles/Vol] 30.0 mmol/L 21.0-32.0 [facility] Urea nitrogen/Creatinine [Mass ratio] 28.3 mg/mg 10-20 [facility] Laboratory - Hematology and Cell countsOrdered By: Marcos Brown on 06-26-2023 Erythrocyte distribution width (RBC) [Entitic vol] 46.0 fL 35.1-43.9 [facility] Erythrocyte distribution width (RBC) [Ratio] 13.5 % 11.6-14.6 [facility] MCH (RBC) [Entitic mass] 30.1 pg 27.0-32.0 [facility] [Mass/Vol]Or dered By: Marcos Brown on 06-26-2023 MCHC (RBC) [Mass/Vol] 32.3 g/dL 32-36 [facility] No Panel InformationOrdered By: Marcos Brown on 06-26-2023 Estimated GFR (MDRD) Amer 64 mL/min >60 [facility] Comment on above: GFR Calc Estimated GFR (MDRD) Non-Af Amer 53 mL/min >60 [facility] Comment on above: Non- GFR Calc Platelets bldOrdered By: Pet er Stephanie on 06-26-2023 Platelets (Bld) [#/Vol] 175 10*3/uL 150-450 [facility] Serum or plasma calcium thanh urement (mass/volume)Ordered By: Marcos Brown on 06-26-2023 Calcium [Mass/Vol] 8.9 mg/dL 8.5-10.1 [facility] Serum or plasma creatinine m easurement (mass/volume)Ordered By: Marcos Brown on 06-26-2023 Creatinine [Mass/Vol] 1.06 mg/dL 0.55-1.02 [facility] Comment on above: The validity of the calculated GFR & GFRAA in patients over 70 years has not been determined. Clinical correlation is essential. Serum or plasma urea nitroge n measurement (mass/volume)Ordered By: Marcos Brown on 06-26-2023 Urea nitrogen [Mass/Vol] 30 mg/dL 7-18 [facility] Thin prep Papanicolaou smear with manual screeningOrdered By: Marcos Brown on 06-26-2023 Thin prep Papanicolaou smear with manual screening 3 5-15 [facility] Basophil percentageOrdered B y: Marcos Brown on 04-16-2023 Basophil percentage 0 SEEN /hpf 0-5 [facility] Bilirubin Test strip Ql (U)O rdered By: Marcos Brown on 04-16-2023 Bilirubin Ql (U) Negative Negative [facility] Culture, urineOrdered By: Donnie Eugene on 04-16-2023 Bacteria identified Cx Nom (U) Culture exhibits no growth. [facility] Ketones Test strip Ql (U)Ord ered By: Marcos Brown on 04-16-2023 Ketones Ql (U) Negative Negative [facility] Mucus LM Ql (Urine sed)Order ed By: Marcos Brown on 04-16-2023 Mucus Ql (Urine sed) 0 SEEN /hpf [facility] Nitrite Test strip Ql (U)Ord ered By: Marcos Brown on 04-16-2023 Nitrite Ql (U) Negative Negative [facility] Protein Test strip Ql (U)Ord ered By: Marcos Brown on 04-16-2023 Protein Ql (U) Negative Negative [facility] Squamous epithelial cells de tection in urine sediment by light microscopyOrdered By: Marcos Brown on 04-16-2023 Epithelial cells.squamous LM Ql (Urine sed) 0 SEEN /hpf 5-10 [facility] Urine blood detectionOrdered By: Marcos Brown on 04-16-2023 RBC Ql (U) Negative Negative [facility] RBC Ql (U) 0 SEEN /hpf 0-5 [facility] Urine clarityOrdered By: Daisha Brown on 04-16-2023 Clarity (U) Clear Clear [facility] Urine color determinationOrd ered By: Marcos Brown on 04-16-2023 Color (U) Yellow Yellow [facility] Urine glucose detectionOrder ed By: Marcos Brown on 04-16-2023 Glucose Ql (U) Normal mg/dl Normal [facility] Urine leukocyte esterase det ection by dipstickOrdered By: Marcos Brown on 04-16-2023 Leukocyte esterase Test strip Ql (U) Negative Negative [facility] Urine pHOrdered By: Marcos wild on 04-16-2023 pH (U) 6.0 [pH] 5.0 - 8.0 [facility] Urine sediment bacteria coun t by microscopy (number/high power field)Ordered By: Marcos Brown on 04-16-2023 Bacteria LM.HPF (Urine sed) [#/Area] 0 /[HPF] None Seen [facility] Urine specific gravity measu rementOrdered By: Marcos Brown on 04-16-2023 Specific gravity (U) [Rel density] 1.010 1.002-1.030 [facility] Urobilinogen Auto test strip Ql (U)Ordered By: Marcso Brown on 04-16-2023 Urobilinogen Ql (U) Normal mg/dl Normal [facility] CNOVon 04-14-2023 CNOV Office Visit (UROLSF) MYRNA SARAVIA ([id number]) 1945 F Date Time Provider Department 04/14/23 2:45 PM LASHANDA ALBRECHT [facility] During your visit today, we recorded the following information about you: Temperature Pulse Blood pressure 97.9 degrees 66/minute 112/60 Lashanda Albrecht APRN.MANAGER PLAN 04/14/2023 3:56 PM Signed ESTABLISHED PATIENT OFFICE VISIT HISTORY OF PRESENT ILLNESS Myrna Saravia is a 78 year old female who presents today in f/u. Patient with a h/o urinary retention, UTI, CVA. Patient presents today in f/u. Patient now at [facility]. Recent UTI on 04/02/23. Finished a [...] during the day at the [facility]. Mostly has incontinence into her depends. LAB [...] (no units) Date Value 12/03/2022 Negative Specific Archer, Ur (no units) Date Value 12/03/2022 >=1.030 [...] at bedtime. cefdinir (OMNICEF) 300 mg capsule Joinnus 10 billion cell -200 mg capsule clopidogrel (PLAVIX) 75 mg tablet 1 tablet by ORAL/FEEDING TUBE route once daily for 88 doses. lactobacillus rhamnosus ([employer]) 10 billion cell capsule Take 1 capsule [...] than half of todays over 40 minute [id number] office visit was spent in counselling/coordina tion [...] call urology with any questions. Lashanda Albrecht APRN.MANAGER PLAN [phone] Referring Provider: SELF [[id number]] Allergies As of Date: 04/14/2023 Noted Allergy (more content not included)... Normal [facility] Culture, urineOrdered By: Donnie Eugene on 04-01-2023 Bacteria identified Cx Nom (U) Escherichia coli [facility] Bilirubin Test strip Ql (U)O rdered By: Marcos Brown on 03-31-2023 Bilirubin Ql (U) Negative Negative [facility] Culture, urineOrdered By: Donnie Eugene on 03-31-2023 Bacteria identified Cx Nom (U) Escherichia coli [facility] Ketones Test strip Ql (U)Ord ered By: Marcos Brown on 03-31-2023 Ketones Ql (U) Negative Negative [facility] Nitrite Test strip Ql (U)Ord ered By: Marcos Brown on 03-31-2023 Nitrite Ql (U) Positive Negative [facility] Protein Test strip Ql (U)Ord ered By: Marcos Brown on 03-31-2023 Protein Ql (U) Negative Negative [facility] Urine blood detectionOrdered By: Marcos Brown on 03-31-2023 RBC Ql (U) Negative Negative [facility] Urine clarityOrdered By: Daisha Brown on 03-31-2023 Clarity (U) Clear Clear [facility] Urine color determinationOrd ered By: Marcos Brown on 03-31-2023 Color (U) Yellow Yellow [facility] Urine glucose detectionOrder ed By: Marcos Brown on 03-31-2023 Glucose Ql (U) Normal mg/dl Normal [facility] Urine leukocyte esterase det ection by dipstickOrdered By: Marcos Brown on 03-31-2023 Leukocyte esterase Test strip Ql (U) 100 /ul Negative [facility] Urine pHOrdered By: Marcos wild on 03-31-2023 pH (U) 5.0 [pH] 5.0 - 8.0 [facility] Urine specific gravity measu rementOrdered By: Marcos Brown on 03-31-2023 Specific gravity (U) [Rel density] 1.020 1.002-1.030 [facility] Urobilinogen Auto test strip Ql (U)Ordered By: Marcos Brown on 03-31-2023 Urobilinogen Ql (U) Normal mg/dl Normal [facility] Basophil percentageOrdered B y: Marcos Brown on 03-27-2023 Chloride [Moles/Vol] 110 mmol/L 98-107 [facility] Glucose [Mass/Vol] 88 mg/dL 74-106 [facility] Potassium [Moles/Vol] 3.4 mmol/L 3.5-5.1 [facility] Sodium [Moles/Vol] 143 mmol/L 136-145 [facility] WBC (Bld) [#/Vol] 4.9 10*3/uL 4.4-11.0 [facility] Blood erythrocytes count (nu mber/volume)Ordered By: Marcos Brown on 03-27-2023 RBC (Bld) [#/Vol] 3.66 10*6/uL 4.2-5.4 [facility] Blood hemoglobin measurement (mass/volume)Ordered By: Marcos Brown on 03-27-2023 Hemoglobin (Bld) [Mass/Vol] 11.4 g/dL 12.0-15.0 [facility] Blood platelet mean volumeOr dered By: Marcos Brown on 03-27-2023 Platelet mean volume (Bld) [Entitic vol] 9.7 fL 6.2-12.0 [facility] Determination of erythrocyte mean corpuscular volume (MCV)Ordered By: Marcos Brown on 03-27-2023 MCV (RBC) [Entitic vol] 96.7 fL 81-99 [facility] Hematocrit Auto (Bld) [Volum e fraction]Ordered By: Marcos Brown on 03-27-2023 Hematocrit (Bld) [Volume fraction] 35.4 % 37-47 [facility] Laboratory - Chemistry and C hemistry - challengeOrdered By: Marcos Brown on 03-27-2023 CO2 [Moles/Vol] 32.0 mmol/L 21.0-32.0 [facility] Urea nitrogen/Creatinine [Mass ratio] 21.8 mg/mg 10-20 [facility] Laboratory - Hematology and Cell countsOrdered By: Marcos Brown on 03-27-2023 Erythrocyte distribution width (RBC) [Entitic vol] 49.5 fL 35.1-43.9 [facility] Erythrocyte distribution width (RBC) [Ratio] 14.0 % 11.6-14.6 [facility] MCH (RBC) [Entitic mass] 31.1 pg 27.0-32.0 [facility] MCHC Auto (RBC) [Mass/Vol]Or dered By: Marcos Brown on 03-27-2023 MCHC (RBC) [Mass/Vol] 32.2 g/dL 32-36 [facility] No Panel InformationOrdered By: Marcos Brown on 03-27-2023 Estimated GFR (MDRD) Amer 68 mL/min >60 [facility] Comment on above: GFR Calc Estimated GFR (MDRD) Non-Af Amer 56 mL/min >60 [facility] Comment on above: Non- GFR Calc Platelets bldOrdered By: Pet er Екатеринаsaros on 03-27-2023 Platelets (Bld) [#/Vol] 162 10*3/uL 150-450 [facility] Serum or plasma calcium thanh urement (mass/volume)Ordered By: Marcos Brown on 03-27-2023 Calcium [Mass/Vol] 8.9 mg/dL 8.5-10.1 [facility] Serum or plasma creatinine m easurement (mass/volume)Ordered By: Marcos Brown on 03-27-2023 Creatinine [Mass/Vol] 1.01 mg/dL 0.55-1.02 [facility] Comment on above: The validity of the calculated GFR & GFRAA in patients over 70 years has not been determined. Clinical correlation is essential. Serum or plasma urea nitroge n measurement (mass/volume)Ordered By: Marcos Brown on 03-27-2023 Urea nitrogen [Mass/Vol] 22 mg/dL 7-18 [facility] Thin prep Papanicolaou smear with manual screeningOrdered By: Marcos Brown on 03-27-2023 Thin prep Papanicolaou smear with manual screening 1 5-15 [facility] Basophil percentageOrdered B y: Marcos Brown on 03-20-2023 Chloride [Moles/Vol] 110 mmol/L 98-107 [facility] Glucose [Mass/Vol] 83 mg/dL 74-106 [facility] Potassium [Moles/Vol] 3.4 mmol/L 3.5-5.1 [facility] Sodium [Moles/Vol] 142 mmol/L 136-145 [facility] WBC (Bld) [#/Vol] 4.9 10*3/uL 4.4-11.0 [facility] Blood erythrocytes count (nu mber/volume)Ordered By: Marcos Brown on 03-20-2023 RBC (Bld) [#/Vol] 3.63 10*6/uL 4.2-5.4 [facility] Blood hemoglobin measurement (mass/volume)Ordered By: Marcos Brown on 03-20-2023 Hemoglobin (Bld) [Mass/Vol] 11.2 g/dL 12.0-15.0 [facility] Blood platelet mean volumeOr dered By: Marcos Brown on 03-20-2023 Platelet mean volume (Bld) [Entitic vol] 9.5 fL 6.2-12.0 [facility] Determination of erythrocyte mean corpuscular volume (MCV)Ordered By: Marcos Brown on 03-20-2023 MCV (RBC) [Entitic vol] 95.9 fL 81-99 [facility] Hematocrit Auto (Bld) [Volum e fraction]Ordered By: Marcos Brown on 03-20-2023 Hematocrit (Bld) [Volume fraction] 34.8 % 37-47 [facility] Laboratory - Chemistry and C hemistry - challengeOrdered By: Marcos Brown on 03-20-2023 CO2 [Moles/Vol] 30.0 mmol/L 21.0-32.0 [facility] Urea nitrogen/Creatinine [Mass ratio] 24.5 mg/mg 10-20 [facility] Laboratory - Hematology and Cell countsOrdered By: Marcos Brown on 03-20-2023 Erythrocyte distribution width (RBC) [Entitic vol] 49.2 fL 35.1-43.9 [facility] Erythrocyte distribution width (RBC) [Ratio] 13.9 % 11.6-14.6 [facility] MCH (RBC) [Entitic mass] 30.9 pg 27.0-32.0 [facility] MCHC Auto (RBC) [Mass/Vol]Or dered By: Marcos Brown on 03-20-2023 MCHC (RBC) [Mass/Vol] 32.2 g/dL 32-36 [facility] No Panel InformationOrdered By: Marcos Brown on 03-20-2023 Estimated GFR (MDRD) Amer 61 mL/min >60 [facility] Comment on above: GFR Calc Estimated GFR (MDRD) Non-Af Amer 51 mL/min >60 [facility] Comment on above: Non- GFR Calc Platelets bldOrdered By: Daisha Brown on 03-20-2023 Platelets (Bld) [#/Vol] 157 10*3/uL 150-450 [facility] Serum or plasma calcium thanh urement (mass/volume)Ordered By: Marcos Brown on 03-20-2023 Calcium [Mass/Vol] 9.0 mg/dL 8.5-10.1 [facility] Serum or plasma creatinine m easurement (mass/volume)Ordered By: Marcos Brown on 03-20-2023 Creatinine [Mass/Vol] 1.10 mg/dL 0.55-1.02 [facility] Comment on above: The validity of the calculated GFR & GFRAA in patients over 70 years has not been determined. Clinical correlation is essential. Serum or plasma urea nitroge n measurement (mass/volume)Ordered By: Marcos Brown on 03-20-2023 Urea nitrogen [Mass/Vol] 27 mg/dL 7-18 [facility] Thin prep Papanicolaou smear with manual screeningOrdered By: Marcos Brown on 03-20-2023 Thin prep Papanicolaou smear with manual screening 2 5-15 [facility] Basophil percentageOrdered B y: Marcos Brown on 03-13-2023 Chloride [Moles/Vol] 109 mmol/L 98-107 [facility] Glucose [Mass/Vol] 96 mg/dL 74-106 [facility] Potassium [Moles/Vol] 3.3 mmol/L 3.5-5.1 [facility] Sodium [Moles/Vol] 143 mmol/L 136-145 [facility] WBC (Bld) [#/Vol] 5.1 10*3/uL 4.4-11.0 [facility] Blood erythrocytes count (nu mber/volume)Ordered By: Marcos Brown on 03-13-2023 RBC (Bld) [#/Vol] 3.73 10*6/uL 4.2-5.4 [facility] Blood hemoglobin measurement (mass/volume)Ordered By: Marcos Brown on 03-13-2023 Hemoglobin (Bld) [Mass/Vol] 11.3 g/dL 12.0-15.0 [facility] Blood platelet mean volumeOr dered By: Marcos Brown on 03-13-2023 Platelet mean volume (Bld) [Entitic vol] 9.8 fL 6.2-12.0 [facility] Determination of erythrocyte mean corpuscular volume (MCV)Ordered By: Marcos Brown on 03-13-2023 MCV (RBC) [Entitic vol] 95.4 fL 81-99 [facility] Hematocrit Auto (Bld) [Volum e fraction]Ordered By: Marcos Brown on 03-13-2023 Hematocrit (Bld) [Volume fraction] 35.6 % 37-47 [facility] Laboratory - Chemistry and C hemistry - challengeOrdered By: Marcos Brown on 03-13-2023 CO2 [Moles/Vol] 30.0 mmol/L 21.0-32.0 [facility] Urea nitrogen/Creatinine [Mass ratio] 31.3 mg/mg 10-20 [facility] Laboratory - Hematology and Cell countsOrdered By: Marcos Brown on 03-13-2023 Erythrocyte distribution width (RBC) [Entitic vol] 49.2 fL 35.1-43.9 [facility] Erythrocyte distribution width (RBC) [Ratio] 14.0 % 11.6-14.6 [facility] MCH (RBC) [Entitic mass] 30.3 pg 27.0-32.0 [facility] MCHC Auto (RBC) [Mass/Vol]Or dered By: Marcos Brown on 03-13-2023 MCHC (RBC) [Mass/Vol] 31.7 g/dL 32-36 [facility] No Panel InformationOrdered By: Marcos Brown on 03-13-2023 Estimated GFR (MDRD) Amer 58 mL/min >60 [facility] Comment on above: GFR Calc Estimated GFR (MDRD) Non-Af Amer 48 mL/min >60 [facility] Comment on above: Non- GFR Calc Platelets bldOrdered By: Daisha Brown on 03-13-2023 Platelets (Bld) [#/Vol] 151 10*3/uL 150-450 [facility] Serum or plasma calcium thanh urement (mass/volume)Ordered By: Marcos Brown on 03-13-2023 Calcium [Mass/Vol] 8.9 mg/dL 8.5-10.1 [facility] Serum or plasma creatinine m easurement (mass/volume)Ordered By: Marcos Brown on 03-13-2023 Creatinine [Mass/Vol] 1.15 mg/dL 0.55-1.02 [facility] Comment on above: The validity of the calculated GFR & GFRAA in patients over 70 years has not been determined. Clinical correlation is essential. Serum or plasma urea nitroge n measurement (mass/volume)Ordered By: Marcos Brown on 03-13-2023 Urea nitrogen [Mass/Vol] 36 mg/dL 7-18 [facility] Thin prep Papanicolaou smear with manual screeningOrdered By: Marcos Brown on 03-13-2023 Thin prep Papanicolaou smear with manual screening 4 5-15 [facility] Basophil percentageOrdered B y: Marcos Brown on 02-10-2023 Bilirubin [Mass/Vol] 0.50 mg/dL 0.20-1.00 [facility] Comment on above: For patients on eltr ombopag therapy, use of [facility] TBIL is not recommended. Chloride [Moles/Vol] 108 mmol/L 98-107 [facility] Cholesterol [Mass/Vol] 94 mg/dL <200 [facility] Comment on above: <200 mg/dL Desirable 200-240 mg/dL Borderline >240 mg/dL High Risk Glucose [Mass/Vol] 94 mg/dL 74-106 [facility] Potassium [Moles/Vol] 3.6 mmol/L 3.5-5.1 [facility] Protein [Mass/Vol] 5.4 g/dL 6.4-8.2 [facility] Sodium [Moles/Vol] 142 mmol/L 136-145 [facility] Triglyceride [Mass/Vol] 83 mg/dL <199 [facility] Comment on above: The drugs N-Acetylcy steine and Metamizole may falsely depress this assay.Serum Triglycerides Reference Interval Normal <150 mg/dL Borderline high 150 - 199 mg/dL High 200 - 499 mg/dL Very High > or = 500 mg/dL WBC (Bld) [#/Vol] 5.2 10*3/uL 4.4-11.0 [facility] Blood erythrocytes count (nu mber/volume)Ordered By: Marcos Brown on 02-10-2023 RBC (Bld) [#/Vol] 3.44 10*6/uL 4.2-5.4 [facility] Blood hemoglobin measurement (mass/volume)Ordered By: Marcos Brown on 02-10-2023 Hemoglobin (Bld) [Mass/Vol] 10.3 g/dL 12.0-15.0 [facility] Blood platelet mean volumeOr dered By: Marcos Brown on 02-10-2023 Platelet mean volume (Bld) [Entitic vol] 9.8 fL 6.2-12.0 [facility] Determination of erythrocyte mean corpuscular volume (MCV)Ordered By: Marcos Brown on 02-10-2023 MCV (RBC) [Entitic vol] 95.9 fL 81-99 [facility] Hematocrit Auto (Bld) [Volum e fraction]Ordered By: Marcos Brown on 02-10-2023 Hematocrit (Bld) [Volume fraction] 33.0 % 37-47 [facility] Laboratory - Chemistry and C hemistry - challengeOrdered By: Marcos Brown on 02-10-2023 ALP [Catalytic activity/Vol] 53 U/L 45-117 [facility] ALT [Catalytic activity/Vol] 14 U/L 13-56 [facility] CO2 [Moles/Vol] 31.0 mmol/L 21.0-32.0 [facility] Globulin (S) [Mass/Vol] 2.9 g/dL 2.2-4.2 [facility] Urea nitrogen/Creatinine [Mass ratio] 26.0 mg/mg 10-20 [facility] Laboratory - Hematology and Cell countsOrdered By: Marcos Brown on 02-10-2023 Erythrocyte distribution width (RBC) [Entitic vol] 49.5 fL 35.1-43.9 [facility] Erythrocyte distribution width (RBC) [Ratio] 14.1 % 11.6-14.6 [facility] MCH (RBC) [Entitic mass] 29.9 pg 27.0-32.0 [facility] MCHC Auto (RBC) [Mass/Vol]Or dered By: Marcos Brown on 02-10-2023 MCHC (RBC) [Mass/Vol] 31.2 g/dL 32-36 [facility] No Panel InformationOrdered By: Marcos Brown on 02-10-2023 Estimated GFR (MDRD) Amer 54 mL/min >60 [facility] Comment on above: GFR Calc Estimated GFR (MDRD) Non-Af Amer 45 mL/min >60 [facility] Comment on above: Non- GFR Calc Thyroid Stimulating Hormone (TSH) 1.65 uIU/mL 0.358-3.74 [facility] Platelets bldOrdered By: Daisha Brown on 02-10-2023 Platelets (Bld) [#/Vol] 185 10*3/uL 150-450 [facility] Serum or plasma albumin thanh urement (mass/volume)Ordered By: Marcos Brown on 02-10-2023 Albumin [Mass/Vol] 2.5 g/dL 3.2-5.0 [facility] Serum or plasma albumin/glob ulin mass ratioOrdered By: Marcos Brown on 02-10-2023 Albumin/Globulin [Mass ratio] 0.9 {ratio} 0.9-2.4 [facility] Serum or plasma calcium thanh urement (mass/volume)Ordered By: Marcos Brown on 02-10-2023 Calcium [Mass/Vol] 8.7 mg/dL 8.5-10.1 [facility] Serum or plasma cholesterol in HDL measurement (mass/volume)Ordered By: Marcos Brown on 02-10-2023 Cholesterol in HDL [Mass/Vol] 39 mg/dL >40 [facility] Comment on above: The drugs N-Acetylcy steine and Metamizole may falsely depress this assay. Reference Range HDL <40 mg/dL Low HDL Cholesterol HDL >or= 60 mg/dL High HDL Cholesterol Serum or plasma cholesterol in VLDL measurement (mass/volume)Ordered By: Marcos Brown on 02-10-2023 Cholesterol in VLDL [Mass/Vol] 17 mg/dL 5-40 [facility] Serum or plasma creatinine m easurement (mass/volume)Ordered By: Marcos Brown on 02-10-2023 Creatinine [Mass/Vol] 1.23 mg/dL 0.55-1.02 [facility] Comment on above: The validity of the calculated GFR & GFRAA in patients over 70 years has not been determined. Clinical correlation is essential. Serum or plasma low density lipoprotein (LDL) cholesterol measurement (mass/volume)Ordered By: Marcos Brown on 02-10-2023 Cholesterol in LDL [Mass/Vol] 38 mg/dL 0-130 [facility] Serum or plasma urea nitroge n measurement (mass/volume)Ordered By: Marcos Brown on 02-10-2023 Urea nitrogen [Mass/Vol] 32 mg/dL 7-18 [facility] Thin prep Papanicolaou smear with manual screeningOrdered By: Marcos Brown on 02-10-2023 Thin prep Papanicolaou smear with manual screening 11 U/L 15-37 [facility] Thin prep Papanicolaou smear with manual screening 3 5-15 [facility] CNOVon 01-31-2023 CNOV Office Visit (UROLSF) MYRNA SARAVIA ([id number]) 1945 F Date Time Provider Department 01/31/23 1:15 PM LASHANDA ALBRECHT [facility] During your visit today, we recorded the following information about you: Pulse Blood pressure Weight Height 77/minute 114/56 75.3 kg 1.651 m Lashanda Albrecht APRN.MANAGER PLAN 01/31/2023 2:16 PM Signed ESTABLISHED PATIENT OFFICE [...] (no units) Date Value 12/03/2022 Negative Specific Archer, Ur (no units) Date Value 12/03/2022 >=1.030 [...] mL syrup chlorthalidone (HYGROTON) 25 mg tablet [facility] 10 billion cell -200 mg [...] - ICD (more content not included)... Normal [facility] CNOVon 01-10-2023 CNOV Office Visit (UROLSF) MYRNA SARAVIA ([id number]) 1945 F Date Time Provider Department 01/10/23 [...] stroke. She is currently in rehab at [facility]. She does not want to have a [...] (no units) Date Value 12/03/2022 Negative Specific Archer, Ur (no units) Date Value 12/03/2022 >=1.030 Hemoglobin/Blood,Ur (no units) Date Value 12/03/2022 Negative pH, Urine (no units) Date Value 12/03/2022 6.0 Protein, Urine (no units) Date Value 12/03/2022 Negative Urobilinogen (no units) Date Value 12/03/2022 0.2 EU/dL Nitrites (no units) Date Value 12/03/2022 Negative Leuk Esterase (no units) Date Value 12/03/2022 Negative MEDICATIONS: chlorthalidone (HYGROTON) 25 mg tablet Joinnus 10 billion cell -200 mg capsule acetaminophen [...] not taking: Reported on 01/10/2023) lactobacillus rhamnosus ([employer]) 10 billion cell capsule Take 1 capsule [...] MUSCULOSKELETAL: Negati (more content not included)... Normal [facility] CNOVon 12-20-2022 CNOV Office Visit (UROLSF) MYRNA SARAVIA ([id number]) 1945 F Date Time Provider Department 12/20/22 [...] stroke. She is currently in rehab at [facility]. She does not want to have a [...] (no units) Date Value 12/03/2022 Negative Specific Archer, Ur (no units) Date Value 12/03/2022 >=1.030 [...] Back: Normal. ASSESSMENT/PLAN: 1. 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 R (more content not included)... Normal [facility] Basic metabolic 2000 panelon 12-09-2022 Anion gap [Moles/Vol] 10 mmol/L 9 - 18 mmol/L [facility] Calcium [Mass/Vol] 9.4 mg/dL 8.5 - 10. 2 mg/dL [facility] Chloride [Moles/Vol] 108 mmol/L High 97 - 10 5 mmol/L [facility] CO2 [Moles/Vol] 23 mmol/L 22 - 30 mmol/L [facility] Creatinine [Mass/Vol] 0.99 mg/dL High 0.58 - 0.96 mg/dL [facility] Estimated Glomerular Filtration Rate 58 mL/min/1.73m Low >=60 mL/min/1.73m [facility] Glucose [Mass/Vol] 83 mg/dL 74 - 99 mg/dL [facility] Potassium [Moles/Vol] 4.2 mmol/L 3.7 - 5.1 mmol/L [facility] Sodium [Moles/Vol] 141 mmol/L 136 - 144 mmol/L [facility] Urea nitrogen [Mass/Vol] 40 mg/dL High 7 - 21 mg/d L [facility] Anion gap [Moles/Vol] 10 mmol/L Normal 9-18 [facility] Comment on above: Order Comment: Speci men Type: BLOOD SPECIMENOrdering Facility: [facility] Address: [address] [place] [address] Performed By: #### 2 4321-2 ####BERRIOS LABORATORYCLIA [id number] [place] [address] [place] Calcium [Mass/Vol] 9.4 mg/dL Normal 8.5-10.2 [facility] Comment on above: Order Comment: Speci men Type: BLOOD SPECIMENOrdering Facility: [facility] Address: [address] [place] [address] Performed By: #### 2 4321-2 ####BERRIOS LABORATORYCLIA [id number] [place] [address] [place] Chloride [Moles/Vol] 108 mmol/L High 97-105 [facility] Comment on above: Order Comment: Speci men Type: BLOOD SPECIMENOrdering Facility: [facility] Address: [address] [place] [address] Performed By: #### 2 4321-2 ####BERRIOS LABORATORYCLIA [id number] [place] [address] [place] CO2 [Moles/Vol] 23 mmol/L Normal 22-30 [facility] Comment on above: Order Comment: Speci men Type: BLOOD SPECIMENOrdering Facility: [facility] Address: [address] [place] [address] Performed By: #### 2 4321-2 ####BERRIOS LABORATORYCLIA [id number] [address] Creatinine [Mass/Vol] 0.99 mg/dL High 0.58-0.96 [facility] Comment on above: Order Comment: Speci men Type: BLOOD SPECIMENOrdering Facility: [facility] Address: [address] [place] [address] Performed By: #### 2 4321-2 ####BERRIOS LABORATORYCLIA [id number] [address] ESTIMATED GLOMERULAR FILTRATION RATE 58 mL/min/1.73m??? Low >=60 [facility] Comment on above: Order Comment: Speci men Type: BLOOD SPECIMENOrdering Facility: [facility] Address: [address] [place] [address] Result Comment: Caroline mated Glomerular Filtration Rate [...] Performed By: #### 2 4321-2 ####BERRIOS LABORATORYCLIA [id number] [address] Glucose [Mass/Vol] 83 mg/dL Normal 74-99 [facility] Comment on above: Order Comment: Speci men Type: BLOOD SPECIMENOrdering Facility: [facility] Address: [address] [place] [address] Result Comment: The [place] [employer] (ADA) provides guidance for cutoff [...] Standards of Medical Care in Diabetes 2016, [place] [employer]. Diabetes Care. 2016.39(Suppl 1). Performed By: #### 2 4321-2 ####BERRIOS LABORATORYCLIA [id number] [address] Potassium [Moles/Vol] 4.2 mmol/L Normal 3.7-5.1 [facility] Comment on above: Order Comment: Speci men Type: BLOOD SPECIMENOrdering Facility: [facility] Address: [address] [place] [address] Performed By: #### 2 4321-2 ####BERRIOS LABORATORYCLIA [id number] [address] [place] [facility] Sodium [Moles/Vol] 141 mmol/L Normal 136-144 [facility] Comment on above: Order Comment: Speci stef Type: BLOOD SPECIMENOrdering Facility: [facility] Address: [address] [place] [address] Performed By: #### 2 4321-2 ####BERRIOS LABORATORYCLIA [id number] [address] [place] [facility] Urea nitrogen [Mass/Vol] 40 mg/dL High 7-21 [facility] Comment on above: Order Comment: Speci men Type: BLOOD SPECIMENOrdering Facility: [facility] Address: [address] [place] [address] Performed By: #### 2 4321-2 ####BERRIOS LABORATORYCLIA [id number] [place] [address] [place] CBC W Auto Differential pane l (Bld)on 12-09-2022 Basophils (Bld) [#/Vol] 0.04 10*3/uL <0.11 k/uL [facility] Basophils/100 WBC (Bld) 0.8 % [facility] Differential cell count method Nom (Bld) Auto [facility] Eosinophils (Bld) [#/Vol] 0.34 10*3/uL <0.46 k/uL [facility] Eosinophils/100 WBC (Bld) 6.6 % [facility] Erythrocyte distribution width (RBC) [Ratio] 14.7 % 11.5 - 15.0 % [facility] Hematocrit (Bld) [Volume fraction] 34.2 % Low 36.0 - 46.0 % [facility] Hemoglobin (Bld) [Mass/Vol] 10.8 g/dL Low 11.5 - 15.5 g/dL [facility] Immature granulocytes (Bld) [#/Vol] 0.03 10*3/uL <0.10 k/uL [facility] Immature granulocytes/100 WBC (Bld) 0.6 % [facility] Lymphocytes (Bld) [#/Vol] 1.60 10*3/uL 1.00 - 4.00 k/uL [facility] Lymphocytes/100 WBC (Bld) 31.2 % [facility] MCH (RBC) [Entitic mass] 30.8 pg 26. 0 - 34.0 pg [facility] MCHC (RBC) [Mass/Vol] 31.6 g/dL 30.5 - 36.0 g/dL [facility] MCV (RBC) [Entitic vol] 97.4 fL 80.0 - 100.0 fL [facility] Monocytes (Bld) [#/Vol] 0.61 10*3/uL <0.87 k/uL [facility] Monocytes/100 WBC (Bld) 11.9 % [facility] Neutrophils (Bld) [#/Vol] 2.51 10*3/uL 1.45 - 7.50 k/uL [facility] Neutrophils/100 WBC (Bld) 48.9 % [facility] Nucleated RBC (Bld) [#/Vol] <0.01 k/uL [facility] Nucleated RBC/100 WBC (Bld) [Ratio] 0.0 /100 WBC [facility] Platelet mean volume (Bld) [Entitic vol] 10.4 fL 9.0 - 12.7 fL [facility] Platelets (Bld) [#/Vol] 170 10*3/uL 150 - 400 k/uL [facility] RBC (Bld) [#/Vol] 3.51 10*6/uL Low 3.90 - 5.2 0 m/uL [facility] WBC (Bld) [#/Vol] 5.13 10*3/uL 3.70 - 11. 00 k/uL [facility] Basophils (Bld) [#/Vol] 0.04 10*3/uL Normal <0.11 [facility] Comment on above: Order Comment: Speci men Type: BLOOD SPECIMENOrdering Facility: [facility] Address: [address] [place] [address] Performed By: #### 5 7021-8 ####BERRIOS LABORATORYCLIA [id number] [place] [address] [place] Basophils/100 WBC (Bld) 0.8 % Normal [facility] Comment on above: Order Comment: Speci men Type: BLOOD SPECIMENOrdering Facility: [facility] Address: [address] [place] [address] Performed By: #### 5 7021-8 ####BERRIOS LABORATORYCLIA [id number] [place] [address] [place] Differential cell count method Nom (Bld) Auto Normal [facility] Comment on above: Order Comment: Speci men Type: BLOOD SPECIMENOrdering Facility: [facility] Address: [address] [place] [address] Performed By: #### 5 7021-8 ####BERRIOS LABORATORYCLIA [id number] [place] [address] [place] Eosinophils (Bld) [#/Vol] 0.34 10*3/uL Normal <0.46 [facility] Comment on above: Order Comment: Speci men Type: BLOOD SPECIMENOrdering Facility: [facility] Address: [address] [place] [address] Performed By: #### 5 7021-8 ####BERRIOS LABORATORYCLIA [id number] [place] [address] [place] Eosinophils/100 WBC (Bld) 6.6 % Normal [facility] Comment on above: Order Comment: Speci men Type: BLOOD SPECIMENOrdering Facility: [facility] Address: [address] [place] [address] Performed By: #### 5 7021-8 ####BERRIOS LABORATORYCLIA [id number] [place] [address] [place] Erythrocyte distribution width (RBC) [Ratio] 14.7 % Normal 11.5-15.0 [facility] Comment on above: Order Comment: Speci men Type: BLOOD SPECIMENOrdering Facility: [facility] Address: [address] [place] [address] Performed By: #### 5 7021-8 ####BERRIOS LABORATORYCLIA [id number] [place] [address] [place] Hematocrit (Bld) [Volume fraction] 34.2 % Low 36.0-46.0 [facility] Comment on above: Order Comment: Speci men Type: BLOOD SPECIMENOrdering Facility: [facility] Address: [address] [place] [address] Performed By: #### 5 7021-8 ####BERRIOS LABORATORYCLIA [id number] [place] [address] [place] Hemoglobin (Bld) [Mass/Vol] 10.8 g/dL Low 11.5-15.5 [facility] Comment on above: Order Comment: Speci men Type: BLOOD SPECIMENOrdering Facility: [facility] Address: [address] [place] [address] Performed By: #### 5 7021-8 ####BERRIOS LABORATORYCLIA [id number] [place] [address] [place] Immature granulocytes (Bld) [#/Vol] 0.03 10*3/uL Normal <0.10 [facility] Comment on above: Order Comment: Speci men Type: BLOOD SPECIMENOrdering Facility: [facility] Address: [address] [place] [address] Performed By: #### 5 7021-8 ####BERRIOS LABORATORYCLIA [id number] [place] [address] [place] Immature granulocytes/100 WBC (Bld) 0.6 % Normal [facility] Comment on above: Order Comment: Speci men Type: BLOOD SPECIMENOrdering Facility: [facility] Address: [address] [place] [address] Performed By: #### 5 7021-8 ####BERRIOS LABORATORYCLIA [id number] [address] [place] Lymphocytes (Bld) [#/Vol] 1.60 10*3/uL Normal 1.00-4.00 [facility] Comment on above: Order Comment: Speci men Type: BLOOD SPECIMENOrdering Facility: [facility] Address: [address] [place] [address] Performed By: #### 5 7021-8 ####BERRIOS LABORATORYCLIA [id number] [address] Lymphocytes/100 WBC (Bld) 31.2 % Normal [facility] Comment on above: Order Comment: Speci men Type: BLOOD SPECIMENOrdering Facility: [facility] Address: [address] [place] [address] Performed By: #### 5 7021-8 ####BERRIOS LABORATORYCLIA [id number] [place] [address] [place] MCH (RBC) [Entitic mass] 30.8 pg Normal 26.0-34.0 [facility] Comment on above: Order Comment: Speci men Type: BLOOD SPECIMENOrdering Facility: [facility] Address: [address] [place] [address] Performed By: #### 5 7021-8 ####BERRIOS LABORATORYCLIA [id number] [address] [place] MCHC (RBC) [Mass/Vol] 31.6 g/dL Normal 30.5-36.0 [facility] Comment on above: Order Comment: Speci men Type: BLOOD SPECIMENOrdering Facility: [facility] Address: [address] [place] [address] Performed By: #### 5 7021-8 ####BERRIOS LABORATORYCLIA [id number] [place] [address] [place] MCV (RBC) [Entitic vol] 97.4 fL Normal 80.0-100.[address] [facility] Comment on above: Order Comment: Speci men Type: BLOOD SPECIMENOrdering Facility: [facility] Address: [address] [place] [address] Performed By: #### 5 7021-8 ####BERRIOS LABORATORYCLIA [id number] [place] [address] [place] Monocytes (Bld) [#/Vol] 0.61 10*3/uL Normal <0.87 [facility] Comment on above: Order Comment: Speci men Type: BLOOD SPECIMENOrdering Facility: [facility] Address: [address] [place] [address] Performed By: #### 5 7021-8 ####BERRIOS LABORATORYCLIA [id number] [address] [place] Monocytes/100 WBC (Bld) 11.9 % Normal C [facility] Comment on above: Order Comment: Speci men Type: BLOOD SPECIMENOrdering Facility: [facility] Address: [address] [place] [address] Performed By: #### 5 7021-8 ####BERRIOS LABORATORYCLIA [id number] [place] [address] [place] Neutrophils (Bld) [#/Vol] 2.51 10*3/uL Normal 1.45-7.50 [facility] Comment on above: Order Comment: Speci men Type: BLOOD SPECIMENOrdering Facility: [facility] Address: [address] [place] [address] Performed By: #### 5 7021-8 ####BERRIOS LABORATORYCLIA [id number] [place] [address] [place] Neutrophils/100 WBC (Bld) 48.9 % Normal [facility] Comment on above: Order Comment: Speci men Type: BLOOD SPECIMENOrdering Facility: [facility] Address: [address] [place] [address] Performed By: #### 5 7021-8 ####BERRIOS LABORATORYCLIA [id number] [place] [address] [place] Nucleated RBC (Bld) [#/Vol] 10*3/uL Normal <0.01 [facility] Comment on above: Order Comment: Speci men Type: BLOOD SPECIMENOrdering Facility: [facility] Address: [address] [place] [address] Performed By: #### 5 7021-8 ####BERRIOS LABORATORYCLIA [id number] [place] [address] [place] Nucleated RBC/100 WBC (Bld) [Ratio] 0.0 /100 WBC Normal [facility] Comment on above: Order Comment: Speci men Type: BLOOD SPECIMENOrdering Facility: [facility] Address: [address] [place] [address] Performed By: #### 5 7021-8 ####BERRIOS LABORATORYCLIA [id number] [place] [address] [place] Platelet mean volume (Bld) [Entitic vol] 10.4 fL Normal 9.0-12.7 [facility] Comment on above: Order Comment: Speci men Type: BLOOD SPECIMENOrdering Facility: [facility] Address: [address] [place] [address] Performed By: #### 5 7021-8 ####BERRIOS LABORATORYCLIA [id number] [place] [address] [place] Platelets (Bld) [#/Vol] 170 10*3/uL Normal 150-400 [facility] Comment on above: Order Comment: Speci men Type: BLOOD SPECIMENOrdering Facility: [facility] Address: [address] [place] [address] Performed By: #### 5 7021-8 ####BERRIOS LABORATORYCLIA [id number] [place] [address] [place] RBC (Bld) [#/Vol] 3.51 10*6/uL Low 3.90-5.20 [facility] Comment on above: Order Comment: Speci men Type: BLOOD SPECIMENOrdering Facility: [facility] Address: [address] [place] [address] Performed By: #### 5 7021-8 ####BERRIOS LABORATORYCLIA [id number] [place] [id number] [place] WBC (Bld) [#/Vol] 5.13 10*3/uL Normal 3.70-11.00 [facility] Comment on above: Order Comment: Speci men Type: BLOOD SPECIMENOrdering Facility: [facility] Address: [address] [place] [address] Performed By: #### 5 7021-8 ####BERRIOS LABORATORYCLIA [id number] [place] [id number] [place] Basic metabolic 2000 panelon 12-05-2022 Anion gap [Moles/Vol] 12 mmol/L 9 - 18 mmol/L [facility] Calcium [Mass/Vol] 9.5 mg/dL 8.5 - 10. 2 mg/dL [facility] Chloride [Moles/Vol] 109 mmol/L High 97 - 10 5 mmol/L [facility] CO2 [Moles/Vol] 23 mmol/L 22 - 30 mmol/L [facility] Creatinine [Mass/Vol] 1.11 mg/dL High 0.58 - 0.96 mg/dL [facility] Estimated Glomerular Filtration Rate 51 mL/min/1.73m Low >=60 mL/min/1.73m [facility] Glucose [Mass/Vol] 96 mg/dL 74 - 99 mg/dL [facility] Potassium [Moles/Vol] 4.4 mmol/L 3.7 - 5.1 mmol/L [facility] Sodium [Moles/Vol] 144 mmol/L 136 - 144 mmol/L [facility] Urea nitrogen [Mass/Vol] 39 mg/dL High 7 - 21 mg/d L [facility] Anion gap [Moles/Vol] 12 mmol/L Normal 9-18 [facility] Comment on above: Order Comment: Speci men Type: BLOOD SPECIMENOrdering Facility: [facility] Address: [address] [place] [address] Performed By: #### 2 4321-2 ####BERRIOS LABORATORYCLIA [id number] [place] [address] [place] Calcium [Mass/Vol] 9.5 mg/dL Normal 8.5-10.2 [facility] Comment on above: Order Comment: Speci men Type: BLOOD SPECIMENOrdering Facility: [facility] Address: [address] [place] [address] Performed By: #### 2 4321-2 ####BERRIOS LABORATORYCLIA [id number] [place] [id number] [place] Chloride [Moles/Vol] 109 mmol/L High 97-105 [facility] Comment on above: Order Comment: Speci men Type: BLOOD SPECIMENOrdering Facility: [facility] Address: [address] [place] [address] Performed By: #### 2 4321-2 ####BERRIOS LABORATORYCLIA [id number] [place] [address] [place] CO2 [Moles/Vol] 23 mmol/L Normal 22-30 [facility] Comment on above: Order Comment: Speci men Type: BLOOD SPECIMENOrdering Facility: [facility] Address: [address] [place] [address] Performed By: #### 2 4321-2 ####BERRIOS LABORATORYCLIA [id number] [place] [address] [place] Creatinine [Mass/Vol] 1.11 mg/dL High 0.58-0.96 [facility] Comment on above: Order Comment: Speci men Type: BLOOD SPECIMENOrdering Facility: [facility] Address: [address] [place] [address] Performed By: #### 2 4321-2 ####BERRIOS LABORATORYCLIA [id number] [place] [address] [place] ESTIMATED GLOMERULAR FILTRATION RATE 51 mL/min/1.73m??? Low >=60 [facility] Comment on above: Order Comment: Speci men Type: BLOOD SPECIMENOrdering Facility: [facility] Address: [address] [place] [address] Result Comment: Caroline mated Glomerular Filtration Rate [...] Performed By: #### 2 4321-2 ####BERRIOS LABORATORYCLIA [id number] [place] [address] [place] Glucose [Mass/Vol] 96 mg/dL Normal 74-99 [facility] Comment on above: Order Comment: Speci men Type: BLOOD SPECIMENOrdering Facility: [facility] Address: [address] [place] [address] Result Comment: The [place] [employer] (ADA) provides guidance for cutoff [...] Standards of Medical Care in Diabetes 2016, [place] [employer]. Diabetes Care. 2016.39(Suppl 1). Performed By: #### 2 4321-2 ####BERRIOS LABORATORYCLIA [id number] [place] [id number] [place] Potassium [Moles/Vol] 4.4 mmol/L Normal 3.7-5.1 [facility] Comment on above: Order Comment: Speci men Type: BLOOD SPECIMENOrdering Facility: [facility] Address: [address] [place] [address] Performed By: #### 2 4321-2 ####BERRIOS LABORATORYCLIA [id number] [place] [address] [place] Sodium [Moles/Vol] 144 mmol/L Normal 136-144 [facility] Comment on above: Order Comment: Speci men Type: BLOOD SPECIMENOrdering Facility: [facility] Address: [address] [place] [address] Performed By: #### 2 4321-2 ####BERRIOS LABORATORYCLIA [id number] [address] [place] [facility] Urea nitrogen [Mass/Vol] 39 mg/dL High 7-21 [facility] Comment on above: Order Comment: Speci men Type: BLOOD SPECIMENOrdering Facility: [facility] Address: [address] [place] [address] Performed By: #### 2 4321-2 ####BERRIOS LABORATORYCLIA [id number] [address] [place] CBC W Auto Differential pane l (Bld)on 12-05-2022 Basophils (Bld) [#/Vol] 0.04 10*3/uL <0.11 k/uL [facility] Basophils/100 WBC (Bld) 0.8 % [facility] Differential cell count method Nom (Bld) Auto [facility] Eosinophils (Bld) [#/Vol] 0.29 10*3/uL <0.46 k/uL [facility] Eosinophils/100 WBC (Bld) 5.9 % [facility] Erythrocyte distribution width (RBC) [Ratio] 14.5 % 11.5 - 15.0 % [facility] Hematocrit (Bld) [Volume fraction] 33.5 % Low 36.0 - 46.0 % [facility] Hemoglobin (Bld) [Mass/Vol] 10.7 g/dL Low 11.5 - 15.5 g/dL [facility] Immature granulocytes (Bld) [#/Vol] <0.10 k/uL [facility] Immature granulocytes/100 WBC (Bld) 0.4 % [facility] Lymphocytes (Bld) [#/Vol] 1.43 10*3/uL 1.00 - 4.00 k/uL [facility] Lymphocytes/100 WBC (Bld) 29.0 % [facility] MCH (RBC) [Entitic mass] 30.8 pg 26. 0 - 34.0 pg [facility] MCHC (RBC) [Mass/Vol] 31.9 g/dL 30.5 - 36.0 g/dL [facility] MCV (RBC) [Entitic vol] 96.5 fL 80.0 - 100.0 fL [facility] [facility] Monocytes (Bld) [#/Vol] 0.61 10*3/uL <0.87 k/uL [facility] Monocytes/100 WBC (Bld) 12.4 % [facility] Neutrophils (Bld) [#/Vol] 2.54 10*3/uL 1.45 - 7.50 k/uL [facility] Neutrophils/100 WBC (Bld) 51.5 % [facility] Nucleated RBC (Bld) [#/Vol] <0.01 k/uL [facility] Nucleated RBC/100 WBC (Bld) [Ratio] 0.0 /100 WBC [facility] Platelet mean volume (Bld) [Entitic vol] 10.7 fL 9.0 - 12.7 fL [facility] Platelets (Bld) [#/Vol] 169 10*3/uL 150 - 400 k/uL [facility] RBC (Bld) [#/Vol] 3.47 10*6/uL Low 3.90 - 5.2 0 m/uL [facility] WBC (Bld) [#/Vol] 4.93 10*3/uL 3.70 - 11. 00 k/uL [facility] Basophils (Bld) [#/Vol] 0.04 10*3/uL Normal <0.11 [facility] Comment on above: Order Comment: Speci men Type: BLOOD SPECIMENOrdering Facility: [facility] Address: [address] [place] [address] Performed By: #### 5 7021-8 ####BER[facility]OS LABORATORYCLIA [id number] [address] Basophils/100 WBC (Bld) 0.8 % Normal C [facility] Comment on above: Order Comment: Speci men Type: BLOOD SPECIMENOrdering Facility: [facility] Address: [address] [place] [address] Performed By: #### 5 7021-8 ####BERRIOS LABORATORYCLIA [id number] [address] OF [facility] Differential cell count method Nom (Bld) Auto Normal [facility] Comment on above: Order Comment: Speci men Type: BLOOD SPECIMENOrdering Facility: [facility] Address: [address] [place] [address] Performed By: #### 5 7021-8 ####BERRIOS LABORATORYCLIA [id number] [place] [address] [place] Eosinophils (Bld) [#/Vol] 0.29 10*3/uL Normal <0.46 [facility] Comment on above: Order Comment: Speci men Type: BLOOD SPECIMENOrdering Facility: [facility] Address: [address] [place] [address] Performed By: #### 5 7021-8 ####BERRIOS LABORATORYCLIA [id number] [place] [address] [place] Eosinophils/100 WBC (Bld) 5.9 % Normal [facility] Comment on above: Order Comment: Speci men Type: BLOOD SPECIMENOrdering Facility: [facility] Address: [address] [place] [address] Performed By: #### 5 7021-8 ####BERRIOS LABORATORYCLIA [id number] [place] [address] [place] Erythrocyte distribution width (RBC) [Ratio] 14.5 % Normal 11.5-15.0 [facility] Comment on above: Order Comment: Speci men Type: BLOOD SPECIMENOrdering Facility: [facility] Address: [address] [place] [address] Performed By: #### 5 7021-8 ####BERRIOS LABORATORYCLIA [id number] [place] [address] [place] Hematocrit (Bld) [Volume fraction] 33.5 % Low 36.0-46.0 [facility] Comment on above: Order Comment: Speci men Type: BLOOD SPECIMENOrdering Facility: [facility] Address: [address] [place] [address] Performed By: #### 5 7021-8 ####BERRIOS LABORATORYCLIA [id number] [place] [address] [place] Hemoglobin (Bld) [Mass/Vol] 10.7 g/dL Low 11.5-15.5 [facility] Comment on above: Order Comment: Speci men Type: BLOOD SPECIMENOrdering Facility: [facility] Address: [address] [place] [address] Performed By: #### 5 7021-8 ####BERRIOS LABORATORYCLIA [id number] [address] [place] Immature granulocytes (Bld) [#/Vol] 10*3/uL Normal <0.10 [facility] Comment on above: Order Comment: Speci men Type: BLOOD SPECIMENOrdering Facility: [facility] Address: [address] [place] [address] Performed By: #### 5 7021-8 ####BERRIOS LABORATORYCLIA [id number] [address] Immature granulocytes/100 WBC (Bld) 0.4 % Normal [facility] Comment on above: Order Comment: Speci men Type: BLOOD SPECIMENOrdering Facility: [facility] Address: [address] [place] [address] Performed By: #### 5 7021-8 ####BERRIOS LABORATORYCLIA [id number] [place] [address] [place] Lymphocytes (Bld) [#/Vol] 1.43 10*3/uL Normal 1.00-4.00 [facility] Comment on above: Order Comment: Speci men Type: BLOOD SPECIMENOrdering Facility: [facility] Address: [address] [place] [address] Performed By: #### 5 7021-8 ####BERRIOS LABORATORYCLIA [id number] [address] [place] Lymphocytes/100 WBC (Bld) 29.0 % Normal [facility] Comment on above: Order Comment: Speci men Type: BLOOD SPECIMENOrdering Facility: [facility] Address: [address] [place] [address] Performed By: #### 5 7021-8 ####BERRIOS LABORATORYCLIA [id number] [place] [address] [place] MCH (RBC) [Entitic mass] 30.8 pg Normal 26.0-34.0 [facility] Comment on above: Order Comment: Speci men Type: BLOOD SPECIMENOrdering Facility: [facility] Address: [address] [place] [address] Performed By: #### 5 7021-8 ####BERRIOS LABORATORYCLIA [id number] [address] [place] MCHC (RBC) [Mass/Vol] 31.9 g/dL Normal 30.5-36.0 [facility] Comment on above: Order Comment: Speci men Type: BLOOD SPECIMENOrdering Facility: [facility] Address: [address] [place] [address] Performed By: #### 5 7021-8 ####BERRIOS LABORATORYCLIA [id number] [address] [place] MCV (RBC) [Entitic vol] 96.5 fL Normal 80.0-100.[address] [facility] Comment on above: Order Comment: Speci men Type: BLOOD SPECIMENOrdering Facility: [facility] Address: [address] [place] [address] Performed By: #### 5 7021-8 ####BERRIOS LABORATORYCLIA [id number] [address] [place] Monocytes (Bld) [#/Vol] 0.61 10*3/uL Normal <0.87 [facility] Comment on above: Order Comment: Speci men Type: BLOOD SPECIMENOrdering Facility: [facility] Address: [address] [place] [address] Performed By: #### 5 7021-8 ####BERRIOS LABORATORYCLIA [id number] [address] Monocytes/100 WBC (Bld) 12.4 % Normal C [facility] Comment on above: Order Comment: Speci men Type: BLOOD SPECIMENOrdering Facility: [facility] Address: [address] [place] [address] Performed By: #### 5 7021-8 ####BERRIOS LABORATORYCLIA [id number] [place] [address] [place] Neutrophils (Bld) [#/Vol] 2.54 10*3/uL Normal 1.45-7.50 [facility] Comment on above: Order Comment: Speci men Type: BLOOD SPECIMENOrdering Facility: [facility] Address: [address] [place] [address] Performed By: #### 5 7021-8 ####BERRIOS LABORATORYCLIA [id number] [place] [address] [place] Neutrophils/100 WBC (Bld) 51.5 % Normal [facility] Comment on above: Order Comment: Speci men Type: BLOOD SPECIMENOrdering Facility: [facility] Address: [address] [place] [address] Performed By: #### 5 7021-8 ####BERRIOS LABORATORYCLIA [id number] [place] [address] [place] Nucleated RBC (Bld) [#/Vol] 10*3/uL Normal <0.01 [facility] Comment on above: Order Comment: Speci men Type: BLOOD SPECIMENOrdering Facility: [facility] Address: [address] [place] [address] Performed By: #### 5 7021-8 ####BERRIOS LABORATORYCLIA [id number] [place] [address] [place] Nucleated RBC/100 WBC (Bld) [Ratio] 0.0 /100 WBC Normal [facility] Comment on above: Order Comment: Speci men Type: BLOOD SPECIMENOrdering Facility: [facility] Address: [address] [place] [address] Performed By: #### 5 7021-8 ####BERRIOS LABORATORYCLIA [id number] [place] [address] [place] Platelet mean volume (Bld) [Entitic vol] 10.7 fL Normal 9.0-12.7 [facility] Comment on above: Order Comment: Speci men Type: BLOOD SPECIMENOrdering Facility: [facility] Address: [address] [place] [address] Performed By: #### 5 7021-8 ####BERRIOS LABORATORYCLIA [id number] [place] [address] [place] Platelets (Bld) [#/Vol] 169 10*3/uL Normal 150-400 [facility] Comment on above: Order Comment: Speci men Type: BLOOD SPECIMENOrdering Facility: [facility] Address: [address] [place] [address] Performed By: #### 5 7021-8 ####BERRIOS LABORATORYCLIA [id number] [place] [address] [place] RBC (Bld) [#/Vol] 3.47 10*6/uL Low 3.90-5.20 [facility] Comment on above: Order Comment: Speci men Type: BLOOD SPECIMENOrdering Facility: [facility] Address: [address] [place] [address] Performed By: #### 5 7021-8 ####BERRIOS LABORATORYCLIA [id number] [place] [address] [place] WBC (Bld) [#/Vol] 4.93 10*3/uL Normal 3.70-11.00 [facility] Comment on above: Order Comment: Speci men Type: BLOOD SPECIMENOrdering Facility: [facility] Address: [address] [place] [address] Performed By: #### 5 7021-8 ####BERRIOS LABORATORYCLIA [id number] [place] [id number] [place] Basic metabolic 2000 panelon 12-02-2022 Anion gap [Moles/Vol] 11 mmol/L Normal 9-18 [facility] Comment on above: Order Comment: Speci men Type: BLOOD SPECIMENOrdering Facility: [facility] Address: [address] [place] [address] Performed By: #### 2 4321-2 ####[facility] LABORATORYCLIA [id number] [place] [id number] [place] Calcium [Mass/Vol] 9.4 mg/dL Normal 8.5-10.2 [facility] Comment on above: Order Comment: Speci men Type: BLOOD SPECIMENOrdering Facility: [facility] Address: [address] [place] [address] Performed By: #### 2 4321-2 ####HILLCREST LABORATORYCLIA [id number] [place] [address] [place] Chloride [Moles/Vol] 107 mmol/L High 97-105 [facility] Comment on above: Order Comment: Speci men Type: BLOOD SPECIMENOrdering Facility: [facility] Address: [address] [place] [address] Performed By: #### 2 4321-2 ####DEREJECREST LABORATORYCLIA [id number] [place] [address] [place] CO2 [Moles/Vol] 23 mmol/L Normal 22-30 [facility] Comment on above: Order Comment: Speci men Type: BLOOD SPECIMENOrdering Facility: [facility] Address: [address] [place] [address] Performed By: #### 2 4321-2 ####HILLCREST LABORATORYCLIA [id number] [place] [address] [place] Creatinine [Mass/Vol] 1.04 mg/dL High 0.58-0.96 [facility] Comment on above: Order Comment: Speci men Type: BLOOD SPECIMENOrdering Facility: [facility] Address: [address] [place] [address] Performed By: #### 2 4321-2 ####HILLCREST LABORATORYCLIA [id number] [place] [address] [place] Estimated Glomerular Filtration Rate 55 mL/min/1.73m Low >=60 mL/min/1.73m [facility] Glucose [Mass/Vol] 104 mg/dL High 74-99 [facility] Comment on above: Order Comment: Speci men Type: BLOOD SPECIMENOrdering Facility: [facility] Address: [address] [place] [address] Result Comment: The [place] [employer] (ADA) provides guidance for cutoff [...] Standards of Medical Care in Diabetes 2016, [place] [employer]. Diabetes Care. 2016.39(Suppl 1). Performed By: #### 2 4321-2 ####H[facility]CREST LABORATORYCLIA [id number] [place] [address] [place] Potassium [Moles/Vol] 4.2 mmol/L Normal 3.7-5.1 [facility] Comment on above: Order Comment: Speci men Type: BLOOD SPECIMENOrdering Facility: [facility] Address: [address] [place] [address] Performed By: #### 2 4321-2 ####HILLCREST LABORATORYCLIA [id number] [place] [address] [place] Sodium [Moles/Vol] 141 mmol/L Normal 136-144 [facility] Comment on above: Order Comment: Speci men Type: BLOOD SPECIMENOrdering Facility: [facility] Address: [address] [place] [address] Performed By: #### 2 4321-2 ####HILLCREST LABORATORYCLIA [id number] [place] [address] [place] Urea nitrogen [Mass/Vol] 41 mg/dL High 7-21 [facility] Comment on above: Order Comment: Speci men Type: BLOOD SPECIMENOrdering Facility: [facility] Address: [address] [place] [address] Performed By: #### 2 4321-2 ####H[facility] LABORATORYCLIA [id number] [place] [address] [place] ESTIMATED GLOMERULAR FILTRATION RATE 55 mL/min/1.73m??? Low >=60 [facility] Comment on above: Order Comment: Speci men Type: BLOOD SPECIMENOrdering Facility: [facility] Address: [address] [place] [address] Result Comment: Caroline mated Glomerular Filtration Rate [...] Performed By: #### 2 4321-2 ####H[facility]CRE[facility] LABORATORYCLIA [id number] [place] [address] [place] CBC W Auto Differential pane l (Bld)on 12-02-2022 Basophils (Bld) [#/Vol] 0.03 10*3/uL Normal <0.11 [facility] Comment on above: Order Comment: Speci men Type: BLOOD SPECIMENOrdering Facility: [facility] Address: [address] [place] [address] Performed By: #### 5 7021-8 ####H[facility]CRE[facility] LABORATORYCLIA [id number] [place] [address] [place] Basophils/100 WBC (Bld) 0.6 % Normal [facility] Comment on above: Order Comment: Speci men Type: BLOOD SPECIMENOrdering Facility: [facility] Address: [address] [place] [address] Performed By: #### 5 7021-8 ####H[facility]CREST LABORATORYCLIA [id number] [place] [address] [place] Differential cell count method Nom (Bld) Auto Normal [facility] Comment on above: Order Comment: Speci men Type: BLOOD SPECIMENOrdering Facility: [facility] Address: [address] [place] [address] Performed By: #### 5 7021-8 ####HILLCREST LABORATORYCLIA [id number] [place] [address] [place] Eosinophils (Bld) [#/Vol] 0.27 10*3/uL Normal <0.46 [facility] Comment on above: Order Comment: Speci men Type: BLOOD SPECIMENOrdering Facility: [facility] Address: [address] [place] [address] Performed By: #### 5 7021-8 ####H[facility] LABORATORYCLIA [id number] [place] [address] [place] Eosinophils/100 WBC (Bld) 5.6 % Normal [facility] Comment on above: Order Comment: Speci men Type: BLOOD SPECIMENOrdering Facility: [facility] Address: [address] [place] [address] Performed By: #### 5 7021-8 ####DEREJECREST LABORATORYCLIA [id number] [address] [place] Erythrocyte distribution width (RBC) [Ratio] 14.3 % Normal 11.5-15.0 [facility] Comment on above: Order Comment: Speci men Type: BLOOD SPECIMENOrdering Facility: [facility] Address: [address] [place] [address] Performed By: #### 5 7021-8 ####DEREJECREST LABORATORYCLIA [id number] [address] [place] Hematocrit (Bld) [Volume fraction] 35.5 % Low 36.0-46.0 [facility] Comment on above: Order Comment: Speci men Type: BLOOD SPECIMENOrdering Facility: [facility] Address: [address] [place] [address] Performed By: #### 5 7021-8 ####H[facility] LABORATORYCLIA [id number] [place] [address] [place] Hemoglobin (Bld) [Mass/Vol] 12.3 g/dL Normal 11.5-15.5 [facility] Comment on above: Order Comment: Speci men Type: BLOOD SPECIMENOrdering Facility: [facility] Address: [address] [place] [address] Performed By: #### 5 7021-8 ####[facility] LABORATORYCLIA [id number] [place] [address] [place] Immature granulocytes (Bld) [#/Vol] <0.10 k/uL [facility] Immature granulocytes/100 WBC (Bld) 0.4 % Normal [facility] Comment on above: Order Comment: Speci men Type: BLOOD SPECIMENOrdering Facility: [facility] Address: [address] [place] [address] Performed By: #### 5 7021-8 ####DEREJECREST LABORATORYCLIA [id number] [place] [address] [place] Lymphocytes (Bld) [#/Vol] 1.12 10*3/uL Normal 1.00-4.00 [facility] Comment on above: Order Comment: Speci men Type: BLOOD SPECIMENOrdering Facility: [facility] Address: [address] [place] [address] Performed By: #### 5 7021-8 ####DEREJECREST LABORATORYCLIA [id number] [address] [place] [facility] Lymphocytes/100 WBC (Bld) 23.3 % Normal [facility] Comment on above: Order Comment: Speci men Type: BLOOD SPECIMENOrdering Facility: [facility] Address: [address] [place] [address] Performed By: #### 5 7021-8 ####DEREJECREST LABORATORYCLIA [id number] [place] [address] [place] MCH (RBC) [Entitic mass] 33.2 pg Normal 26.0-34.0 [facility] Comment on above: Order Comment: Speci men Type: BLOOD SPECIMENOrdering Facility: [facility] Address: [address] [place] [address] Performed By: #### 5 7021-8 ####H[facility] LABORATORYCLIA [id number] [address] [place] MCHC (RBC) [Mass/Vol] 34.6 g/dL Normal 30.5-36.0 [facility] Comment on above: Order Comment: Speci men Type: BLOOD SPECIMENOrdering Facility: [facility] Address: [address] [place] [address] Performed By: #### 5 7021-8 ####DEREJECREST LABORATORYCLIA [id number] [place] [address] [place] MCV (RBC) [Entitic vol] 95.9 fL Normal 80.0-100.0 [facility] Comment on above: Order Comment: Speci men Type: BLOOD SPECIMENOrdering Facility: [facility] Address: [address] [place] [address] Performed By: #### 5 7021-8 ####DEREJECREST LABORATORYCLIA [id number] [place] [address] [place] Monocytes (Bld) [#/Vol] 0.56 10*3/uL Normal <0.87 [facility] Comment on above: Order Comment: Speci men Type: BLOOD SPECIMENOrdering Facility: [facility] Address: [address] [place] [address] Performed By: #### 5 7021-8 ####DEREJECREST LABORATORYCLIA [id number] [address] [place] Monocytes/100 WBC (Bld) 11.6 % Normal [facility] Comment on above: Order Comment: Speci men Type: BLOOD SPECIMENOrdering Facility: [facility] Address: [address] [place] [address] Performed By: #### 5 7021-8 ####H[facility] LABORATORYCLIA [id number] [place] [address] [place] Neutrophils (Bld) [#/Vol] 2.81 10*3/uL Normal 1.45-7.50 [facility] Comment on above: Order Comment: Speci men Type: BLOOD SPECIMENOrdering Facility: [facility] Address: [address] [place] [address] Performed By: #### 5 7021-8 ####DEREJECREST LABORATORYCLIA [id number] [place] [address] [place] Neutrophils/100 WBC (Bld) 58.5 % Normal [facility] Comment on above: Order Comment: Speci men Type: BLOOD SPECIMENOrdering Facility: [facility] Address: [address] [place] [address] Performed By: #### 5 7021-8 ####DEREJECREST LABORATORYCLIA [id number] [place] [address] [place] Nucleated RBC (Bld) [#/Vol] <0.01 k/uL [facility] Nucleated RBC/100 WBC (Bld) [Ratio] 0.0 /100 WBC Normal [facility] Comment on above: Order Comment: Speci men Type: BLOOD SPECIMENOrdering Facility: [facility] Address: [address] [place] [address] Performed By: #### 5 7021-8 ####DEREJECREST LABORATORYCLIA [id number] [place] [address] [place] Platelet mean volume (Bld) [Entitic vol] 10.8 fL Normal 9.0-12.7 [facility] Comment on above: Order Comment: Speci men Type: BLOOD SPECIMENOrdering Facility: [facility] Address: [address] [place] [address] Performed By: #### 5 7021-8 ####DEREJECREST LABORATORYCLIA [id number] [place] [address] [place] Platelets (Bld) [#/Vol] 208 10*3/uL Normal 150-400 [facility] Comment on above: Order Comment: Speci men Type: BLOOD SPECIMENOrdering Facility: [facility] Address: [address] [place] [address] Performed By: #### 5 7021-8 ####[facility] LABORATORYCLIA [id number] [place] [address] [place] RBC (Bld) [#/Vol] 3.70 10*6/uL Low 3.90-5.20 [facility] Comment on above: Order Comment: Speci men Type: BLOOD SPECIMENOrdering Facility: [facility] Address: [address] [place] [address] Performed By: #### 5 7021-8 ####[facility] LABORATORYCLIA [id number] [place] [address] [place] WBC (Bld) [#/Vol] 4.81 10*3/uL Normal 3.70-11.00 [facility] Comment on above: Order Comment: Speci men Type: BLOOD SPECIMENOrdering Facility: [facility] Address: [address] [place] [address] Performed By: #### 5 7021-8 ####DEREJECREST LABORATORYCLIA [id number] [place] [address] [place] Immature granulocytes (Bld) [#/Vol] 10*3/uL Normal <0.10 [facility] Comment on above: Order Comment: Speci men Type: BLOOD SPECIMENOrdering Facility: [facility] Address: [address] [place] [address] Performed By: #### 5 7021-8 ####DEREJECREST LABORATORYCLIA [id number] [place] [address] [place] Nucleated RBC (Bld) [#/Vol] 10*3/uL Normal <0.01 [facility] Comment on above: Order Comment: Speci men Type: BLOOD SPECIMENOrdering Facility: [facility] Address: [address] [place] [address] Performed By: #### 5 7021-8 ####[facility] LABORATORYCLIA [id number] [place] [address] [place] Basic metabolic 2000 panelon 11-28-2022 Anion gap [Moles/Vol] 9 mmol/L 9 - 18 mmol/L [facility] Calcium [Mass/Vol] 10.0 mg/dL 8.5 - 10. 2 mg/dL [facility] Chloride [Moles/Vol] 104 mmol/L 97 - 10 5 mmol/L [facility] CO2 [Moles/Vol] 25 mmol/L 22 - 30 mmol/L [facility] Creatinine [Mass/Vol] 1.29 mg/dL High 0.58 - 0.96 mg/dL [facility] Estimated Glomerular Filtration Rate 42 mL/min/1.73m Low >=60 mL/min/1.73m [facility] Glucose [Mass/Vol] 73 mg/dL Low 74 - 99 mg/dL [facility] Potassium [Moles/Vol] 4.8 mmol/L 3.7 - 5.1 mmol/L [facility] Sodium [Moles/Vol] 138 mmol/L 136 - 144 mmol/L [facility] Urea nitrogen [Mass/Vol] 45 mg/dL High 7 - 21 mg/d L [facility] Anion gap [Moles/Vol] 9 mmol/L Normal 9-18 [facility] Comment on above: Order Comment: Speci men Type: BLOOD SPECIMENOrdering Facility: [facility] Address: [address] [place] [address] Performed By: #### 2 4321-2 ####BERRI[facility] LABORATORYCLIA [id number] [place] [address] [place] Calcium [Mass/Vol] 10.0 mg/dL Normal 8.5-10.2 [facility] Comment on above: Order Comment: Speci men Type: BLOOD SPECIMENOrdering Facility: [facility] Address: [address] [place] [address] Performed By: #### 2 4321-2 ####BERRIOS LABORATORYCLIA [id number] [place] [address] [place] Chloride [Moles/Vol] 104 mmol/L Normal 97-105 [facility] Comment on above: Order Comment: Speci men Type: BLOOD SPECIMENOrdering Facility: [facility] Address: [address] [place] [address] Performed By: #### 2 4321-2 ####BERRIOS LABORATORYCLIA [id number] [place] [address] [place] [place] CO2 [Moles/Vol] 25 mmol/L Normal 22-30 [facility] Comment on above: Order Comment: Speci men Type: BLOOD SPECIMENOrdering Facility: [facility] Address: [address] [place] [address] Performed By: #### 2 4321-2 ####BERRIOS LABORATORYCLIA [id number] [place] [address] [place] Creatinine [Mass/Vol] 1.29 mg/dL High 0.58-0.96 [facility] Comment on above: Order Comment: Speci men Type: BLOOD SPECIMENOrdering Facility: [facility] Address: [address] [place] [address] Performed By: #### 2 4321-2 ####BERRIOS LABORATORYCLIA [id number] [place] [address] [place] ESTIMATED GLOMERULAR FILTRATION RATE 42 mL/min/1.73m??? Low >=60 [facility] Comment on above: Order Comment: Speci men Type: BLOOD SPECIMENOrdering Facility: [facility] Address: [address] [place] [address] Result Comment: Caroline mated Glomerular Filtration Rate [...] Performed By: #### 2 4321-2 ####BERRIOS LABORATORYCLIA [id number] [place] [address] [place] Glucose [Mass/Vol] 73 mg/dL Low 74-99 [facility] Comment on above: Order Comment: Speci men Type: BLOOD SPECIMENOrdering Facility: [facility] Address: [address] [place] [address] Result Comment: The [place] [employer] (ADA) provides guidance for cutoff [...] Standards of Medical Care in Diabetes 2016, [place] [employer]. Diabetes Care. 2016.39(Suppl 1). Performed By: #### 2 4321-2 ####BERRIOS LABORATORYCLIA [id number] [address] [place] Potassium [Moles/Vol] 4.8 mmol/L Normal 3.7-5.1 [facility] Comment on above: Order Comment: Speci men Type: BLOOD SPECIMENOrdering Facility: [facility] Address: [address] [place] [address] Performed By: #### 2 4321-2 ####BERRIOS LABORATORYCLIA [id number] [address] [place] [facility] Sodium [Moles/Vol] 138 mmol/L Normal 136-144 [facility] Comment on above: Order Comment: Feii stef Type: BLOOD SPECIMENOrdering Facility: [facility] Address: [address] [place] [address] Performed By: #### 2 4321-2 ####BERRIOS LABORATORYCLIA [id number] [address] [place] Urea nitrogen [Mass/Vol] 45 mg/dL High 7-21 [facility] Comment on above: Order Comment: Feii stef Type: BLOOD SPECIMENOrdering Facility: [facility] Address: [address] [place] [address] Performed By: #### 2 4321-2 ####BERRIOS LABORATORYCLIA [id number] [place] [id number] [place] CBC W Auto Differential pane l (Bld)on 11-28-2022 Basophils (Bld) [#/Vol] 0.05 10*3/uL <0.11 k/uL [facility] Basophils/100 WBC (Bld) 0.9 % [facility] Differential cell count method Nom (Bld) Auto [facility] Eosinophils (Bld) [#/Vol] 0.17 10*3/uL <0.46 k/uL [facility] Eosinophils/100 WBC (Bld) 3.1 % [facility] Erythrocyte distribution width (RBC) [Ratio] 13.9 % 11.5 - 15.0 % [facility] Hematocrit (Bld) [Volume fraction] 38.0 % 36.0 - 46.0 % [facility] Hemoglobin (Bld) [Mass/Vol] 12.1 g/dL 11.5 - 15.5 g/dL [facility] Immature granulocytes (Bld) [#/Vol] 0.03 10*3/uL <0.10 k/uL [facility] Immature granulocytes/100 WBC (Bld) 0.5 % [facility] Lymphocytes (Bld) [#/Vol] 1.90 10*3/uL 1.00 - 4.00 k/uL [facility] Lymphocytes/100 WBC (Bld) 34.4 % [facility] MCH (RBC) [Entitic mass] 30.6 pg 26. 0 - 34.0 pg [facility] MCHC (RBC) [Mass/Vol] 31.8 g/dL 30.5 - 36.0 g/dL [facility] MCV (RBC) [Entitic vol] 96.2 fL 80.0 - 100.0 fL [facility] Monocytes (Bld) [#/Vol] 0.54 10*3/uL <0.87 k/uL [facility] Monocytes/100 WBC (Bld) 9.8 % [facility] Neutrophils (Bld) [#/Vol] 2.84 10*3/uL 1.45 - 7.50 k/uL [facility] Neutrophils/100 WBC (Bld) 51.3 % [facility] Nucleated RBC (Bld) [#/Vol] <0.01 k/uL [facility] Nucleated RBC/100 WBC (Bld) [Ratio] 0.0 /100 WBC [facility] Platelet mean volume (Bld) [Entitic vol] 10.2 fL 9.0 - 12.7 fL [facility] Platelets (Bld) [#/Vol] 245 10*3/uL 150 - 400 k/uL [facility] RBC (Bld) [#/Vol] 3.95 10*6/uL 3.90 - 5.2 0 m/uL [facility] WBC (Bld) [#/Vol] 5.53 10*3/uL 3.70 - 11. 00 k/uL [facility] Basophils (Bld) [#/Vol] 0.05 10*3/uL Normal <0.11 [facility] Comment on above: Order Comment: Speci men Type: BLOOD SPECIMENOrdering Facility: [facility] Address: [address] [place] [address] Performed By: #### 5 7021-8 ####BERRIOS LABORATORYCLIA [id number] [place] [address] [place] Basophils/100 WBC (Bld) 0.9 % Normal C [facility] Comment on above: Order Comment: Speci men Type: BLOOD SPECIMENOrdering Facility: [facility] Address: [address] [place] [address] Performed By: #### 5 7021-8 ####BERRIOS LABORATORYCLIA [id number] [place] [address] [place] Differential cell count method Nom (Bld) Auto Normal [facility] Comment on above: Order Comment: Speci men Type: BLOOD SPECIMENOrdering Facility: [facility] Address: [address] [place] [address] Performed By: #### 5 7021-8 ####BERRIOS LABORATORYCLIA [id number] [place] [address] [place] Eosinophils (Bld) [#/Vol] 0.17 10*3/uL Normal <0.46 [facility] Comment on above: Order Comment: Speci men Type: BLOOD SPECIMENOrdering Facility: [facility] Address: [address] [place] [address] Performed By: #### 5 7021-8 ####BERRIOS LABORATORYCLIA [id number] [place] [address] [place] Eosinophils/100 WBC (Bld) 3.1 % Normal [facility] Comment on above: Order Comment: Speci men Type: BLOOD SPECIMENOrdering Facility: [facility] Address: [address] [place] [address] Performed By: #### 5 7021-8 ####BERRIOS LABORATORYCLIA [id number] [place] [address] [place] Erythrocyte distribution width (RBC) [Ratio] 13.9 % Normal 11.5-15.0 [facility] Comment on above: Order Comment: Speci men Type: BLOOD SPECIMENOrdering Facility: [facility] Address: [address] [place] [address] Performed By: #### 5 7021-8 ####BERRIOS LABORATORYCLIA [id number] [place] [address] [place] Hematocrit (Bld) [Volume fraction] 38.0 % Normal 36.0-46.0 [facility] Comment on above: Order Comment: Speci men Type: BLOOD SPECIMENOrdering Facility: [facility] Address: [address] [place] [address] Performed By: #### 5 7021-8 ####BERRIOS LABORATORYCLIA [id number] [place] [address] [place] Hemoglobin (Bld) [Mass/Vol] 12.1 g/dL Normal 11.5-15.5 [facility] Comment on above: Order Comment: Speci men Type: BLOOD SPECIMENOrdering Facility: [facility] Address: [address] [place] [address] Performed By: #### 5 7021-8 ####BERRIOS LABORATORYCLIA [id number] [address] [place] Immature granulocytes (Bld) [#/Vol] 0.03 10*3/uL Normal <0.10 [facility] Comment on above: Order Comment: Speci men Type: BLOOD SPECIMENOrdering Facility: [facility] Address: [address] [place] [address] Performed By: #### 5 7021-8 ####BERRIOS LABORATORYCLIA [id number] [address] [place] Immature granulocytes/100 WBC (Bld) 0.5 % Normal [facility] Comment on above: Order Comment: Speci men Type: BLOOD SPECIMENOrdering Facility: [facility] Address: [address] [place] [address] Performed By: #### 5 7021-8 ####BERRIOS LABORATORYCLIA [id number] [place] [address] [place] Lymphocytes (Bld) [#/Vol] 1.90 10*3/uL Normal 1.00-4.00 [facility] Comment on above: Order Comment: Speci men Type: BLOOD SPECIMENOrdering Facility: [facility] Address: [address] [place] [address] Performed By: #### 5 7021-8 ####BERRIOS LABORATORYCLIA [id number] [address] [place] Lymphocytes/100 WBC (Bld) 34.4 % Normal [facility] Comment on above: Order Comment: Speci men Type: BLOOD SPECIMENOrdering Facility: [facility] Address: [address] [place] [address] Performed By: #### 5 7021-8 ####BERRIOS LABORATORYCLIA [id number] [address] [place] MCH (RBC) [Entitic mass] 30.6 pg Normal 26.0-34.0 [facility] Comment on above: Order Comment: Speci men Type: BLOOD SPECIMENOrdering Facility: [facility] Address: [address] [place] [address] Performed By: #### 5 7021-8 ####BERRIOS LABORATORYCLIA [id number] [address] [place] MCHC (RBC) [Mass/Vol] 31.8 g/dL Normal 30.5-36.0 [facility] Comment on above: Order Comment: Speci men Type: BLOOD SPECIMENOrdering Facility: [facility] Address: [address] [place] [address] Performed By: #### 5 7021-8 ####BERRIOS LABORATORYCLIA [id number] [address] OF [facility] MCV (RBC) [Entitic vol] 96.2 fL Normal 80.0-100.[address] [facility] Comment on above: Order Comment: Speci men Type: BLOOD SPECIMENOrdering Facility: [facility] Address: [address] [place] [address] Performed By: #### 5 7021-8 ####BERRIOS LABORATORYCLIA [id number] [place] [address] [place] Monocytes (Bld) [#/Vol] 0.54 10*3/uL Normal <0.87 [facility] Comment on above: Order Comment: Speci men Type: BLOOD SPECIMENOrdering Facility: [facility] Address: [address] [place] [address] Performed By: #### 5 7021-8 ####BERRIOS LABORATORYCLIA [id number] [place] [address] [place] Monocytes/100 WBC (Bld) 9.8 % Normal [facility] Comment on above: Order Comment: Speci men Type: BLOOD SPECIMENOrdering Facility: [facility] Address: [address] [place] [address] Performed By: #### 5 7021-8 ####BERRIOS LABORATORYCLIA [id number] [place] [address] [place] Neutrophils (Bld) [#/Vol] 2.84 10*3/uL Normal 1.45-7.50 [facility] Comment on above: Order Comment: Speci men Type: BLOOD SPECIMENOrdering Facility: [facility] Address: [address] [place] [address] Performed By: #### 5 7021-8 ####BERRIOS LABORATORYCLIA [id number] [place] [id number] [place] Neutrophils/100 WBC (Bld) 51.3 % Normal [facility] Comment on above: Order Comment: Speci men Type: BLOOD SPECIMENOrdering Facility: [facility] Address: [address] [place] [address] Performed By: #### 5 7021-8 ####BERRIOS LABORATORYCLIA [id number] [place] [id number] [place] Nucleated RBC (Bld) [#/Vol] 10*3/uL Normal <0.01 [facility] Comment on above: Order Comment: Speci men Type: BLOOD SPECIMENOrdering Facility: [facility] Address: [address] [place] [address] Performed By: #### 5 7021-8 ####BERRIOS LABORATORYCLIA [id number] [place] [address] [place] Nucleated RBC/100 WBC (Bld) [Ratio] 0.0 /100 WBC Normal [facility] Comment on above: Order Comment: Speci men Type: BLOOD SPECIMENOrdering Facility: [facility] Address: [address] [place] [address] Performed By: #### 5 7021-8 ####BERRIOS LABORATORYCLIA [id number] [place] [address] [place] Platelet mean volume (Bld) [Entitic vol] 10.2 fL Normal 9.0-12.7 [facility] Comment on above: Order Comment: Speci men Type: BLOOD SPECIMENOrdering Facility: [facility] Address: [address] [place] [address] Performed By: #### 5 7021-8 ####BERRIOS LABORATORYCLIA [id number] [place] [address] [place] Platelets (Bld) [#/Vol] 245 10*3/uL Normal 150-400 [facility] Comment on above: Order Comment: Speci men Type: BLOOD SPECIMENOrdering Facility: [facility] Address: [address] [place] [address] Performed By: #### 5 7021-8 ####BERRIOS LABORATORYCLIA [id number] [place] [id number] [place] RBC (Bld) [#/Vol] 3.95 10*6/uL Normal 3.90-5.20 [facility] Comment on above: Order Comment: Speci men Type: BLOOD SPECIMENOrdering Facility: [facility] Address: [address] [place] [address] Performed By: #### 5 7021-8 ####BERRIOS LABORATORYCLIA [id number] [place] [address] [place] WBC (Bld) [#/Vol] 5.53 10*3/uL Normal 3.70-11.00 [facility] Comment on above: Order Comment: Speci men Type: BLOOD SPECIMENOrdering Facility: [facility] Address: [address] [place] [address] Performed By: #### 5 7021-8 ####BERRIOS LABORATORYCLIA [id number] [place] [address] [place] Basic metabolic 2000 panelon 11-25-2022 Anion gap [Moles/Vol] 10 mmol/L 9 - 18 mmol/L [facility] Calcium [Mass/Vol] 9.5 mg/dL 8.5 - 10. 2 mg/dL [facility] Chloride [Moles/Vol] 106 mmol/L High 97 - 10 5 mmol/L [facility] CO2 [Moles/Vol] 26 mmol/L 22 - 30 mmol/L [facility] Creatinine [Mass/Vol] 1.13 mg/dL High 0.58 - 0.96 mg/dL [facility] Estimated Glomerular Filtration Rate 50 mL/min/1.73m Low >=60 mL/min/1.73m [facility] Glucose [Mass/Vol] 89 mg/dL 74 - 99 mg/dL [facility] Potassium [Moles/Vol] 4.2 mmol/L 3.7 - 5.1 mmol/L [facility] Sodium [Moles/Vol] 142 mmol/L 136 - 144 mmol/L [facility] Urea nitrogen [Mass/Vol] 32 mg/dL High 7 - 21 mg/d L [facility] Anion gap [Moles/Vol] 10 mmol/L Normal 9-18 [facility] Comment on above: Order Comment: Speci men Type: BLOOD SPECIMENOrdering Facility: [facility] Address: [address] [place] [address] Performed By: #### 2 4321-2 ####BERRIOS LABORATORYCLIA [id number] [address] STATES OF [facility] Calcium [Mass/Vol] 9.5 mg/dL Normal 8.5-10.2 [facility] Comment on above: Order Comment: Speci men Type: BLOOD SPECIMENOrdering Facility: [facility] Address: [address] [place] [address] Performed By: #### 2 4321-2 ####BERRIOS LABORATORYCLIA [id number] [place] [id number] [place] Chloride [Moles/Vol] 106 mmol/L High 97-105 [facility] Comment on above: Order Comment: Speci men Type: BLOOD SPECIMENOrdering Facility: [facility] Address: [address] [place] [address] Performed By: #### 2 4321-2 ####BERRIOS LABORATORYCLIA [id number] [place] [address] [place] CO2 [Moles/Vol] 26 mmol/L Normal 22-30 [facility] Comment on above: Order Comment: Speci men Type: BLOOD SPECIMENOrdering Facility: [facility] Address: [address] [place] [address] Performed By: #### 2 4321-2 ####BERRIOS LABORATORYCLIA [id number] [place] [address] [place] Creatinine [Mass/Vol] 1.13 mg/dL High 0.58-0.96 [facility] Comment on above: Order Comment: Speci men Type: BLOOD SPECIMENOrdering Facility: [facility] Address: [address] [place] [address] Performed By: #### 2 4321-2 ####BERRIOS LABORATORYCLIA [id number] [address] [place] ESTIMATED GLOMERULAR FILTRATION RATE 50 mL/min/1.73m??? Low >=60 [facility] Comment on above: Order Comment: Speci men Type: BLOOD SPECIMENOrdering Facility: [facility] Address: [address] [place] [address] Result Comment: Caroline mated Glomerular Filtration Rate [...] Performed By: #### 2 4321-2 ####BERRIOS LABORATORYCLIA [id number] [place] [address] [place] Glucose [Mass/Vol] 89 mg/dL Normal 74-99 [facility] Comment on above: Order Comment: Speci men Type: BLOOD SPECIMENOrdering Facility: [facility] Address: [address] [place] [address] Result Comment: The [place] [employer] (ADA) provides guidance for cutoff [...] Standards of Medical Care in Diabetes 2016, [place] [employer]. Diabetes Care. 2016.39(Suppl 1). Performed By: #### 2 4321-2 ####BERRIOS LABORATORYCLIA [id number] [place] [address] [place] Potassium [Moles/Vol] 4.2 mmol/L Normal 3.7-5.1 [facility] Comment on above: Order Comment: Jordyn finch Type: BLOOD SPECIMENOrdering Facility: [facility] Address: [address] [place] [address] Performed By: #### 2 4321-2 ####BERRIOS LABORATORYCLIA [id number] [place] [id number] [place] Sodium [Moles/Vol] 142 mmol/L Normal 136-144 [facility] Comment on above: Order Comment: Jordyn finch Type: BLOOD SPECIMENOrdering Facility: [facility] Address: [address] [place] [address] Performed By: #### 2 4321-2 ####BERRIOS LABORATORYCLIA [id number] [address] [place] Urea nitrogen [Mass/Vol] 32 mg/dL High 7- [facility] Comment on above: Order Comment: Speci men Type: BLOOD SPECIMENOrdering Facility: [facility] Address: [address] [place] [address] Performed By: #### 2 4321-2 ####[facility] LABORATORYCLIA [id number] [place] [address] [place] CBC W Auto Differential pane l (Bld)on 11-25-2022 Basophils (Bld) [#/Vol] 0.05 10*3/uL <0.11 k/uL [facility] Basophils/100 WBC (Bld) 0.7 % [facility] Differential cell count method Nom (Bld) Auto [facility] Eosinophils (Bld) [#/Vol] 0.21 10*3/uL <0.46 k/uL [facility] Eosinophils/100 WBC (Bld) 3.1 % [facility] Erythrocyte distribution width (RBC) [Ratio] 13.8 % 11.5 - 15.0 % [facility] Hematocrit (Bld) [Volume fraction] 37.0 % 36.0 - 46.0 % [facility] Hemoglobin (Bld) [Mass/Vol] 12.1 g/dL 11.5 - 15.5 g/dL [facility] Immature granulocytes (Bld) [#/Vol] 0.03 10*3/uL <0.10 k/uL [facility] Immature granulocytes/100 WBC (Bld) 0.4 % [facility] Lymphocytes (Bld) [#/Vol] 2.05 10*3/uL 1.00 - 4.00 k/uL [facility] Lymphocytes/100 WBC (Bld) 30.4 % [facility] MCH (RBC) [Entitic mass] 30.5 pg 26. 0 - 34.0 pg [facility] MCHC (RBC) [Mass/Vol] 32.7 g/dL 30.5 - 36.0 g/dL [facility] MCV (RBC) [Entitic vol] 93.2 fL 80.0 - 100.0 fL [facility] Monocytes (Bld) [#/Vol] 0.69 10*3/uL <0.87 k/uL [facility] Monocytes/100 WBC (Bld) 10.2 % [facility] Neutrophils (Bld) [#/Vol] 3.71 10*3/uL 1.45 - 7.50 k/uL [facility] Neutrophils/100 WBC (Bld) 55.2 % [facility] Nucleated RBC (Bld) [#/Vol] <0.01 k/uL [facility] Nucleated RBC/100 WBC (Bld) [Ratio] 0.0 /100 WBC [facility] Platelet mean volume (Bld) [Entitic vol] 9.7 fL 9.0 - 12.7 fL [facility] Platelets (Bld) [#/Vol] 264 10*3/uL 150 - 400 k/uL [facility] RBC (Bld) [#/Vol] 3.97 10*6/uL 3.90 - 5.2 0 m/uL [facility] WBC (Bld) [#/Vol] 6.74 10*3/uL 3.70 - 11. 00 k/uL [facility] Basophils (Bld) [#/Vol] 0.05 10*3/uL Normal <0.11 [facility] Comment on above: Order Comment: Speci men Type: BLOOD SPECIMENOrdering Facility: [facility] Address: [address] [place] [address] Performed By: #### 5 7021-8 ####BERRIOS LABORATORYCLIA [id number] [place] [address] [place] Basophils/100 WBC (Bld) 0.7 % Normal C [facility] Comment on above: Order Comment: Speci men Type: BLOOD SPECIMENOrdering Facility: [facility] Address: [address] [place] [address] Performed By: #### 5 7021-8 ####BERRIOS LABORATORYCLIA [id number] [place] [address] [place] Differential cell count method Nom (Bld) Auto Normal [facility] Comment on above: Order Comment: Speci men Type: BLOOD SPECIMENOrdering Facility: [facility] Address: [address] [place] [address] Performed By: #### 5 7021-8 ####BERRIOS LABORATORYCLIA [id number] [place] [address] [place] Eosinophils (Bld) [#/Vol] 0.21 10*3/uL Normal <0.46 [facility] Comment on above: Order Comment: Speci men Type: BLOOD SPECIMENOrdering Facility: [facility] Address: [address] [place] [address] Performed By: #### 5 7021-8 ####BERRIOS LABORATORYCLIA [id number] [place] [address] [place] Eosinophils/100 WBC (Bld) 3.1 % Normal [facility] Comment on above: Order Comment: Speci men Type: BLOOD SPECIMENOrdering Facility: [facility] Address: [address] [place] [address] Performed By: #### 5 7021-8 ####BERRIOS LABORATORYCLIA [id number] [address] [place] Erythrocyte distribution width (RBC) [Ratio] 13.8 % Normal 11.5-15.0 [facility] Comment on above: Order Comment: Speci men Type: BLOOD SPECIMENOrdering Facility: [facility] Address: [address] [place] [address] Performed By: #### 5 7021-8 ####BERRIOS LABORATORYCLIA [id number] [address] [place] Hematocrit (Bld) [Volume fraction] 37.0 % Normal 36.0-46.0 [facility] Comment on above: Order Comment: Speci men Type: BLOOD SPECIMENOrdering Facility: [facility] Address: [address] [place] [address] Performed By: #### 5 7021-8 ####BERRIOS LABORATORYCLIA [id number] [address] Hemoglobin (Bld) [Mass/Vol] 12.1 g/dL Normal 11.5-15.5 [facility] Comment on above: Order Comment: Speci men Type: BLOOD SPECIMENOrdering Facility: [facility] Address: [address] [place] [address] Performed By: #### 5 7021-8 ####BERRIOS LABORATORYCLIA [id number] [address] [place] Immature granulocytes (Bld) [#/Vol] 0.03 10*3/uL Normal <0.10 [facility] Comment on above: Order Comment: Speci men Type: BLOOD SPECIMENOrdering Facility: [facility] Address: [address] [place] [address] Performed By: #### 5 7021-8 ####BERRIOS LABORATORYCLIA [id number] [address] Immature granulocytes/100 WBC (Bld) 0.4 % Normal [facility] Comment on above: Order Comment: Speci men Type: BLOOD SPECIMENOrdering Facility: [facility] Address: [address] [place] [address] Performed By: #### 5 7021-8 ####BERRIOS LABORATORYCLIA [id number] [address] Lymphocytes (Bld) [#/Vol] 2.05 10*3/uL Normal 1.00-4.00 [facility] Comment on above: Order Comment: Speci men Type: BLOOD SPECIMENOrdering Facility: [facility] Address: [address] [place] [address] Performed By: #### 5 7021-8 ####BERRIOS LABORATORYCLIA [id number] [address] Lymphocytes/100 WBC (Bld) 30.4 % Normal [facility] Comment on above: Order Comment: Speci men Type: BLOOD SPECIMENOrdering Facility: [facility] Address: [address] [place] [address] Performed By: #### 5 7021-8 ####BERRIOS LABORATORYCLIA [id number] [place] [address] [place] MCH (RBC) [Entitic mass] 30.5 pg Normal 26.0-34.0 [facility] Comment on above: Order Comment: Speci men Type: BLOOD SPECIMENOrdering Facility: [facility] Address: [address] [place] [address] Performed By: #### 5 7021-8 ####BERRIOS LABORATORYCLIA [id number] [address] [place] MCHC (RBC) [Mass/Vol] 32.7 g/dL Normal 30.5-36.0 [facility] Comment on above: Order Comment: Speci men Type: BLOOD SPECIMENOrdering Facility: [facility] Address: [address] [place] [address] Performed By: #### 5 7021-8 ####BERRIOS LABORATORYCLIA [id number] [place] [address] [place] MCV (RBC) [Entitic vol] 93.2 fL Normal 80.0-100.[address] [facility] Comment on above: Order Comment: Speci men Type: BLOOD SPECIMENOrdering Facility: [facility] Address: [address] [place] [address] Performed By: #### 5 7021-8 ####BERRIOS LABORATORYCLIA [id number] [place] [address] [place] Monocytes (Bld) [#/Vol] 0.69 10*3/uL Normal <0.87 [facility] Comment on above: Order Comment: Speci men Type: BLOOD SPECIMENOrdering Facility: [facility] Address: [address] [place] [address] Performed By: #### 5 7021-8 ####BERRIOS LABORATORYCLIA [id number] [address] Monocytes/100 WBC (Bld) 10.2 % Normal C [facility] Comment on above: Order Comment: Speci men Type: BLOOD SPECIMENOrdering Facility: [facility] Address: [address] [place] [address] Performed By: #### 5 7021-8 ####BERRIOS LABORATORYCLIA [id number] [place] [address] [place] [facility] [place] Neutrophils (Bld) [#/Vol] 3.71 10*3/uL Normal 1.45-7.50 [facility] Comment on above: Order Comment: Speci men Type: BLOOD SPECIMENOrdering Facility: [facility] Address: [address] [place] [address] Performed By: #### 5 7021-8 ####BERRIOS LABORATORYCLIA [id number] [place] [address] [place] Neutrophils/100 WBC (Bld) 55.2 % Normal [facility] Comment on above: Order Comment: Speci men Type: BLOOD SPECIMENOrdering Facility: [facility] Address: [address] [place] [address] Performed By: #### 5 7021-8 ####BERRIOS LABORATORYCLIA [id number] [place] [address] [place] Nucleated RBC (Bld) [#/Vol] 10*3/uL Normal <0.01 [facility] Comment on above: Order Comment: Speci men Type: BLOOD SPECIMENOrdering Facility: [facility] Address: [address] [place] [address] Performed By: #### 5 7021-8 ####BERRIOS LABORATORYCLIA [id number] [place] [address] [place] Nucleated RBC/100 WBC (Bld) [Ratio] 0.0 /100 WBC Normal [facility] Comment on above: Order Comment: Speci men Type: BLOOD SPECIMENOrdering Facility: [facility] Address: [address] [place] [address] Performed By: #### 5 7021-8 ####BERRIOS LABORATORYCLIA [id number] [place] [id number] [place] Platelet mean volume (Bld) [Entitic vol] 9.7 fL Normal 9.0-12.7 [facility] Comment on above: Order Comment: Speci men Type: BLOOD SPECIMENOrdering Facility: [facility] Address: [address] [place] [address] Performed By: #### 5 7021-8 ####BERRIOS LABORATORYCLIA [id number] [place] [address] [place] Platelets (Bld) [#/Vol] 264 10*3/uL Normal 150-400 [facility] Comment on above: Order Comment: Speci men Type: BLOOD SPECIMENOrdering Facility: [facility] Address: [address] [place] [address] Performed By: #### 5 7021-8 ####BERRIOS LABORATORYCLIA [id number] [place] [id number] [place] RBC (Bld) [#/Vol] 3.97 10*6/uL Normal 3.90-5.20 [facility] Comment on above: Order Comment: Speci men Type: BLOOD SPECIMENOrdering Facility: [facility] Address: [address] [place] [address] Performed By: #### 5 7021-8 ####BERRIOS LABORATORYCLIA [id number] [address] [place] WBC (Bld) [#/Vol] 6.74 10*3/uL Normal 3.70-11.00 [facility] Comment on above: Order Comment: Speci men Type: BLOOD SPECIMENOrdering Facility: [facility] Address: [address] [place] [address] Performed By: #### 5 7021-8 ####BERRIOS LABORATORYCLIA [id number] [place] [id number] [place] Basic metabolic 2000 panelon 11-21-2022 Anion gap [Moles/Vol] 9 mmol/L 9 - 18 mmol/L [facility] Calcium [Mass/Vol] 9.3 mg/dL 8.5 - 10. 2 mg/dL [facility] Chloride [Moles/Vol] 107 mmol/L High 97 - 10 5 mmol/L [facility] CO2 [Moles/Vol] 23 mmol/L 22 - 30 mmol/L [facility] Creatinine [Mass/Vol] 1.13 mg/dL High 0.58 - 0.96 mg/dL [facility] Estimated Glomerular Filtration Rate 50 mL/min/1.73m Low >=60 mL/min/1.73m [facility] Glucose [Mass/Vol] 99 mg/dL 74 - 99 mg/dL [facility] Potassium [Moles/Vol] 4.1 mmol/L 3.7 - 5.1 mmol/L [facility] Sodium [Moles/Vol] 139 mmol/L 136 - 144 mmol/L [facility] Urea nitrogen [Mass/Vol] 43 mg/dL High 7 - 21 mg/d L [facility] CBC W Auto Differential pane l (Bld)on 11-21-2022 Basophils (Bld) [#/Vol] 0.05 10*3/uL <0.11 k/uL [facility] Basophils/100 WBC (Bld) 0.9 % C [facility] Differential cell count method Nom (Bld) Auto [facility] Eosinophils (Bld) [#/Vol] 0.16 10*3/uL <0.46 k/uL [facility] Eosinophils/100 WBC (Bld) 2.8 % [facility] Erythrocyte distribution width (RBC) [Ratio] 13.6 % 11.5 - 15.0 % [facility] Hematocrit (Bld) [Volume fraction] 36.2 % 36.0 - 46.0 % [facility] Hemoglobin (Bld) [Mass/Vol] 11.5 g/dL 11.5 - 15.5 g/dL [facility] Immature granulocytes (Bld) [#/Vol] 0.04 10*3/uL <0.10 k/uL [facility] Immature granulocytes/100 WBC (Bld) 0.7 % [facility] Lymphocytes (Bld) [#/Vol] 1.79 10*3/uL 1.00 - 4.00 k/uL [facility] Lymphocytes/100 WBC (Bld) 31.3 % [facility] MCH (RBC) [Entitic mass] 30.1 pg 26. 0 - 34.0 pg [facility] MCHC (RBC) [Mass/Vol] 31.8 g/dL 30.5 - 36.0 g/dL [facility] MCV (RBC) [Entitic vol] 94.8 fL 80.0 - 100.0 fL [facility] Monocytes (Bld) [#/Vol] 0.62 10*3/uL <0.87 k/uL [facility] Monocytes/100 WBC (Bld) 10.8 % [facility] Neutrophils (Bld) [#/Vol] 3.06 10*3/uL 1.45 - 7.50 k/uL [facility] Neutrophils/100 WBC (Bld) 53.5 % [facility] Nucleated RBC (Bld) [#/Vol] <0.01 k/uL [facility] Nucleated RBC/100 WBC (Bld) [Ratio] 0.0 /100 WBC [facility] Platelet mean volume (Bld) [Entitic vol] 10.0 fL 9.0 - 12.7 fL [facility] Platelets (Bld) [#/Vol] 239 10*3/uL 150 - 400 k/uL [facility] RBC (Bld) [#/Vol] 3.82 10*6/uL Low 3.90 - 5.2 0 m/uL [facility] WBC (Bld) [#/Vol] 5.72 10*3/uL 3.70 - 11. 00 k/uL [facility] Basic metabolic 2000 panelon 11-18-2022 Anion gap [Moles/Vol] 12 mmol/L 9 - 18 mmol/L [facility] Calcium [Mass/Vol] 9.3 mg/dL 8.5 - 10. 2 mg/dL [facility] Chloride [Moles/Vol] 105 mmol/L 97 - 10 5 mmol/L [facility] CO2 [Moles/Vol] 24 mmol/L 22 - 30 mmol/L [facility] Creatinine [Mass/Vol] 1.22 mg/dL High 0.58 - 0.96 mg/dL [facility] Estimated Glomerular Filtration Rate 45 mL/min/1.73m Low >=60 mL/min/1.73m [facility] Glucose [Mass/Vol] 90 mg/dL 74 - 99 mg/dL [facility] Potassium [Moles/Vol] 3.8 mmol/L 3.7 - 5.1 mmol/L [facility] Sodium [Moles/Vol] 141 mmol/L 136 - 144 mmol/L [facility] Urea nitrogen [Mass/Vol] 34 mg/dL High 7 - 21 mg/d L [facility] CBC panel Auto (Bld)on 11-18 Erythrocyte distribution width (RBC) [Ratio] 13.7 % 11.5 - 15.0 % [facility] Hematocrit (Bld) [Volume fraction] 39.9 % 36.0 - 46.0 % [facility] Hemoglobin (Bld) [Mass/Vol] 12.7 g/dL 11.5 - 15.5 g/dL [facility] MCH (RBC) [Entitic mass] 30.1 pg 26. 0 - 34.0 pg [facility] MCHC (RBC) [Mass/Vol] 31.8 g/dL 30.5 - 36.0 g/dL [facility] MCV (RBC) [Entitic vol] 94.5 fL 80.0 - 100.0 fL [facility] Nucleated RBC (Bld) [#/Vol] <0.01 k/uL [facility] Platelet mean volume (Bld) [Entitic vol] 9.8 fL 9.0 - 12.7 fL [facility] Platelets (Bld) [#/Vol] 240 10*3/uL 150 - 400 k/uL [facility] RBC (Bld) [#/Vol] 4.22 10*6/uL 3.90 - 5.2 0 m/uL [facility] WBC (Bld) [#/Vol] 6.40 10*3/uL 3.70 - 11. 00 k/uL [facility] Vital Signs Date Time Vital Sign Value Performing Clinician Facility 05-13-2024 14:32-0500 Body height 162.6 cm Apurva Bruno APRN.MANAGER PLAN Work Phone: [facility] 05-13-2024 14:32-0500 Body mass index (BMI) [Ratio] 30.38 kg/m2 Apurva Bruno [employer]GER [employer] Work Phone: [facility] 05-13-2024 14:32-0500 Body weight 80.29 kg Apurva Bruno [employer]GER [employer] Work Phone: [facility] Comment on above: per last visit, pt in wheelchair 05-13-2024 14:32-0500 Diastolic blood pressure 83 mm[Hg] Apurva Bruno APRN.MANAGER PLAN Work Phone: [facility] 05-13-2024 14:32-0500 Heart rate 68 /min Apurva Bruno [employer] Work Phone: [facility] 05-13-2024 14:32-0500 Systolic blood pressure 146 mm[Hg] Apurva Hollaender [employer]MANAGER [employer] Work Phone: [facility] 11-21-2023 14:04-0400 Body height 162.6 cm Lashanda Clarkt [employer]GER [employer] Work Phone: [facility] 11-21-2023 14:04-0400 Diastolic blood pressure 83 mm[Hg] Lashanda Bernhart [employer]GER [employer] Work Phone: [facility] 11-21-2023 14:04-0400 Heart rate 85 /min Lashanda Josehart [employer]GER [employer] Work Phone: [facility] 11-21-2023 14:04-0400 SaO2% (BldA) [Mass fraction] 98 % Lashanda Copehart [employer]NAGER [employer] Work Phone: [facility] 11-21-2023 14:04-0400 Systolic blood pressure 140 mm[Hg] Lashanda Josehart [employer]NAGER [employer] Work Phone: [facility] 11-12-2023 13:16-0400 Body height 162.6 cm Apurva Hollaender [employer]MANAGER [employer] Work Phone: [facility] 11-12-2023 13:16-0400 Body mass index (BMI) [Ratio] 30.38 kg/m2 Apurva Hollaender [employer]NAGER [employer] Work Phone: [facility] 11-12-2023 13:16-0400 Body weight 80.29 kg Apurva Hollaender [employer]MANAGER [employer] Work Phone: [facility] 11-12-2023 13:16-0400 Diastolic blood pressure 49 mm[Hg] Apurva Hollaender [employer]MANAGER [employer]AN Work Phone: [facility] 11-12-2023 13:16-0400 Heart rate 62 /min Apurva Hollaender [employer]MANAGER [employer] Work Phone: [facility] 11-12-2023 13:16-0400 Systolic blood pressure 122 mm[Hg] Apurva Hollaender [employer]MANAGER [employer] Work Phone: [facility] 04-14-2023 15:08-0400 Body temperature 97.9 [degF] Lashanda Josehart [employer]NAGER [employer] Work Phone: [facility] 04-14-2023 15:08-0400 Diastolic blood pressure 60 mm[Hg] Lashanda Bernhart [employer]MANAGER [employer] Work Phone: [facility] 04-14-2023 15:08-0400 Heart rate 66 /min Lashanda Josehart [employer]MANAGER [employer] Work Phone: [facility] 04-14-2023 15:08-0400 SaO2% (BldA) [Mass fraction] 98 % Lashanda Josehart [employer]MANAGER [employer]AN Work Phone: [facility] 04-14-2023 15:08-0400 Systolic blood pressure 112 mm[Hg] Lashanda Bernhart [employer]MANAGER [employer]AN Work Phone: [facility] 02-13-2023 13:42-0400 Body height 162.6 cm Apurva Hollleighannnder [employer]MANAGER [employer]AN Work Phone: [facility] 02-13-2023 13:42-0400 Body weight 80.29 kg Apurvajordi Cresponder [employer]MANAGER [employer]AN Work Phone: [facility] 02-13-2023 13:42-0400 Diastolic blood pressure 54 mm[Hg] Apurva Hollaender [employer]MANAGER [employer]AN Work Phone: [facility] 02-13-2023 13:42-0400 Heart rate 75 /min Apurva Hollaender [employer]MANAGER [employer]AN Work Phone: [facility] 02-13-2023 13:42-0400 Systolic blood pressure 105 mm[Hg] Apurva Hollaender [employer]MANAGER [employer]AN Work Phone: [facility] 02-03-2023 13:05-0400 Body height 165.1 cm Griselda Murphy PA-C Work Phone: [facility] 02-03-2023 13:05-0400 Body weight 82.56 kg Griselda Razois PA-C Work Phone: [facility] 02-03-2023 13:05-0400 Diastolic blood pressure 78 mm[Hg] Griselda Razois PA-C Work Phone: [facility] 02-03-2023 13:05-0400 Heart rate 77 /min Griselda Razois PA-C Work Phone: [facility] 02-03-2023 13:05-0400 Systolic blood pressure 127 mm[Hg] Griselda Razois PA-C Work Phone: [facility] 01-31-2023 13:36-0400 Body height 165.1 cm Lashanda Albrecht [employer]MANAGER [employer] Work Phone: [facility] 01-31-2023 13:36-0400 Body weight 75.3 kg Lashanda Albrecht [employer]MANAGER [employer]AN Work Phone: [facility] 01-31-2023 13:36-0400 Diastolic blood pressure 56 mm[Hg] Lashanda Albrecht [employer]MANAGER [employer] Work Phone: [facility] 01-31-2023 13:36-0400 Heart rate 77 /min Lashanda Albrecht [employer]MANAGER [employer] Work Phone: [facility] 01-31-2023 13:36-0400 SaO2% (BldA) [Mass fraction] 97 % Lashanda Albrecht [employer]MANAGER [employer]AN Work Phone: [facility] 01-31-2023 13:36-0400 Systolic blood pressure 114 mm[Hg] Lashanda Albrecht [employer]MANAGER [employer]AN Work Phone: [facility] 01-13-2023 10:44-0400 Body temperature 98.01 [degF] Radha Ferreira [employer]MANAGER [employer] Work Phone: [facility] 01-13-2023 10:44-0400 Diastolic blood pressure 56 mm[Hg] Radha Ferreira [employer]MANAGER [employer]AN Work Phone: [facility] 01-13-2023 10:44-0400 Heart rate 80 /min Radha Ferreira [employer]MANAGER [employer]AN Work Phone: [facility] 01-13-2023 10:44-0400 Respiratory rate 18 /min Radha Ferreira [employer]MANAGER [employer]AN Work Phone: [facility] 01-13-2023 10:44-0400 SaO2% (BldA) [Mass fraction] 96 % Radha Ferreira [employer]MANAGER [employer] Work Phone: [facility] 01-13-2023 10:44-0400 Systolic blood pressure 110 mm[Hg] Radha Ferreira [employer]MANAGER [employer]AN Work Phone: [facility] 01-10-2023 13:13-0400 Body height 165.1 cm Lashanda Albrecht [employer]MANAGER [employer]AN Work Phone: [facility] 01-10-2023 13:13-0400 Body weight 75.3 kg Lashanda Albrecht [employer]MANAGER [employer]AN Work Phone: [facility] 01-10-2023 13:13-0400 Diastolic blood pressure 73 mm[Hg] Lashanda Albrecht [employer]MANAGER [employer]AN Work Phone: [facility] 01-10-2023 13:13-0400 Heart rate 65 /min Lashanda Albrecht [employer]MANAGER [employer]AN Work Phone: [facility] 01-10-2023 13:13-0400 SaO2% (BldA) [Mass fraction] 96 % Lashanda Albrecht [employer]MANAGER PLAN Work Phone: [facility] 01-10-2023 13:13-0400 Systolic blood pressure 111 mm[Hg] Lashanda Bernradhat [employer].MANAGER PLAN Work Phone: [facility] 01-02-2023 21:36-0400 Body temperature 97.59 [degF] Radha Ferreira [employer]MANAGER [employer]AN Work Phone: [facility] 01-02-2023 21:36-0400 Diastolic blood pressure 76 mm[Hg] Radha Ferreira [employer]MANAGER [employer]AN Work Phone: [facility] 01-02-2023 21:36-0400 Heart rate 70 /min Radha Ferreira [employer]MANAGER [employer]AN Work Phone: [facility] 01-02-2023 21:36-0400 Respiratory rate 18 /min Radha Ferreira [employer]MANAGER [employer]AN Work Phone: [facility] 01-02-2023 21:36-0400 SaO2% (BldA) [Mass fraction] 96 % Radha Ferreira [employer]MANAGER [employer] Work Phone: [facility] 01-02-2023 21:36-0400 Systolic blood pressure 132 mm[Hg] Radha Ferreira [employer]MANAGER [employer]AN Work Phone: [facility] 12-27-2022 21:53-0400 Body temperature 97.59 [degF] Radha Ferreira [employer]MANAGER [employer]AN Work Phone: [facility] 12-27-2022 21:53-0400 Diastolic blood pressure 65 mm[Hg] Radha Ferreira [employer]MANAGER [employer]AN Work Phone: [facility] 12-27-2022 21:53-0400 Heart rate 88 /min Radha Ferreira [employer]MANAGER [employer] Work Phone: [facility] 12-27-2022 21:53-0400 Respiratory rate 16 /min Radha Ferreira [employer]MANAGER [employer]AN Work Phone: [facility] 12-27-2022 21:53-0400 SaO2% (BldA) [Mass fraction] 95 % Radha Ferreira [employer]MANAGER [employer]AN Work Phone: [facility] 12-27-2022 21:53-0400 Systolic blood pressure 113 mm[Hg] Radha Ferreira [employer]MANAGER [employer]AN Work Phone: [facility] 12-23-2022 21:34-0400 Body temperature 97.59 [degF] Radha Ferreira [employer]MANAGER [employer]AN Work Phone: [facility] 12-23-2022 21:34-0400 Diastolic blood pressure 63 mm[Hg] Radha Culverand [employer]MANAGER [employer]AN Work Phone: [facility] 12-23-2022 21:34-0400 Heart rate 74 /min Radha Ferreira [employer]MANAGER [employer]AN Work Phone: [facility] 12-23-2022 21:34-0400 Respiratory rate 18 /min Radha Ferreira [employer]MANAGER [employer]AN Work Phone: [facility] 12-23-2022 21:34-0400 SaO2% (BldA) [Mass fraction] 96 % Radha Ferreira [employer]MANAGER [employer]AN Work Phone: [facility] 12-23-2022 21:34-0400 Systolic blood pressure 129 mm[Hg] Radha Ferreira [employer]MANAGER [employer]AN Work Phone: [facility] 12-19-2022 11:34-0400 Body height 165.1 cm Apurvajordi Chander [employer]MANAGER [employer]AN Work Phone: [facility] 12-19-2022 11:34-0400 Body weight 87.09 kg Apurvajordi Chander [employer]MANAGER [employer]AN Work Phone: [facility] 12-19-2022 11:34-0400 Diastolic blood pressure 56 mm[Hg] Apurva Cresponder [employer]MANAGER [employer]AN Work Phone: [facility] 12-19-2022 11:34-0400 Heart rate 65 /min Apurva Chander [employer]MANAGER [employer]AN Work Phone: [facility] 12-19-2022 11:34-0400 Systolic blood pressure 110 mm[Hg] Apurva Hollaender [employer]MANAGER [employer]AN Work Phone: [facility] Encounters Encounter Date Encounter Type Care Provider Facility [facility]: [facility] Start: 11-12-2024 [facility] Start: 11-12-2024 Registered Referred Lashanda herring MD [facility] [employer] Start: 11-08-2024 Registered Referred Lashanda herring MD -[facility] [employer] Start: 11-08-2024 End: 11-08-2024 ambulatory Lashanda HAWK Facility:[facility] Start: 11-01-2024 End: 11-01-2024 ambulatory Marcos Екатеринаwinsome HAWK [facility] Work Phone: Start: 11-01-2024 End: 11-01-2024 Departed Referred Marcos Brown -[facility] [employer] Start: 11-01-2024 End: 11-01-2024 ambulatory Marcos HAWK Facility:[facility] Start: 10-27-2024 [address] [employer] [employer] Start: 10-27-2024 End: 10-27-2024 ambulatory Lashanda HAWK Facility:[facility] Start: 10-06-2024 End: 10-06-2024 Departed Referred Lashanda Stone MD -[facility] [employer] [employer] Start: 10-06-2024 Registered Referred Lashanda herring MD -[facility] [employer] Start: 10-06-2024 End: 10-06-2024 ambulatory Lashanda HAWK Facility:[facility] Start: 10-01-2024 End: 10-01-[address] [facility] Work Phone: Start: 10-01-2024 End: 10-01-2024 Departed Referred Lashanda Stone MD -[facility] [employer] Start: 10-01-20[address] [facility] Start: 10-01-2024 End: 10-01-2024 ambulatory Lashanda HAWK Facility:[facility] Start: 09-07-2024 End: 09-07-[address] [facility] Work Phone: Start: 09-07-2024 End: 09-07-2024 Departed [facility] Start: 09-07-2024 Registered Referred [facility] Start: 09-07-2024 End: 09-07-2024 ambulatory [facility] Facility:[facility] Start: 08-04-2024 End: 08-04-2024 ambulatory [facility] Work Phone: [facility] Work Phone: Start: 08-04-2024 End: 08-04-2024 Departed Referred Marcos Екатеринаwinsome [facility] [employer] Start: 08-04-2024 End: 08-04-2024 ambulatory Marcos HAWK Facility:[facility] Start: 06-02-2024 ambulatory [facility] Facility:[facility] Start: 06-02-2024 Registered Referred [facility] Start: 05-13-2024 End: 05-13-2024 Patient encounter procedure Apurva Bruno APRN.CNP Work Phone: Cerebrovascular Comment on above: Aphasia as late effe ct of cerebrovascular accident (Primary Dx); Hemiparesis affecting right side as late effect of cerebrovascular accident (HCC); Intracranial atherosclerosis; Primary hypertension; Dyslipidemia, goal LDL below 70 Start: 05-13-2024 End: 05-13-2024 ambulatory EVIN GARCIA Facility:[facility] Start: 04-13-2024 End: 04-13-2024 ambulatory Marcos HAWK Facility:[facility] Start: 03-23-2024 End: 03-23-2024 ambulatory Marcos HAWK Facility:[facility] Start: 02-27-2024 ambulatory Marcos HAWK Faci lity:[facility] Start: 02-23-2024 End: 02-23-2024 ambulatory Marcos HAWK Facility:[facility] Start: 01-09-2024 ambulatory Marcos HAWK Faci lity:[facility] Start: 11-21-2023 End: 11-21-2023 ambulatory LASHANDA COPERADHABety Facility:[facility] Start: 11-21-2023 End: 11-21-2023 Patient encounter procedure Lashanda Albrecht [employer]GER [employer] Work Phone: Urology Comment on above: Retention of urine ( Primary Dx); Urinary tract infection with hematuria, site unspecified Start: 11-12-2023 End: 11-12-2023 ambulatory EVIN Anitha MONR Facility:[facility] Start: 11-12-2023 End: 11-12-2023 Patient encounter procedure Apurva Bruno [employer]GER [employer] Work Phone: Cerebrovascular Comment on above: Aphasia as late effe ct of cerebrovascular accident (Primary Dx); Hemiparesis affecting right side as late effect of cerebrovascular accident (HCC); Intracranial atherosclerosis; Primary hypertension; Dyslipidemia, goal LDL below 70; Persistent depressive disorder Start: 07-02-2023 End: 07-02-[address] [facility] Work Phone: Start: 07-02-2023 End: 07-02-2023 Departed Referred [facility] [employer] Start: 06-26-2023 Registered Referred [facility] [employer] Start: 04-16-2023 End: 04-16-[address] [facility] Work Phone: Start: 04-16-2023 End: 04-16-2023 Departed Referred [facility] [employer] Start: 04-14-2023 End: 04-14-2023 ambulatory LASHANDA ALBRECHT Facility:[facility] Start: 04-14-2023 End: 04-14-2023 Patient encounter procedure Lashanda Albrecht [employer] Work Phone: Urology Comment on above: Retention of urine ( Primary Dx); Urinary tract infection with hematuria, site unspecified Start: 03-31-2023 End: 03-31-2023 [facility] [facility] [employer] Start: 03-31-2023 Registered Referred [facility] [employer] Start: 03-27-2023 End: 03-27-[address] [facility] Work Phone: Start: 03-27-2023 End: 03-27-2023 Departed Referred [facility] Start: 03-27-2023 Registered Referred [facility] Start: 03-20-2023 End: 03-20-2023 Departed Referred [facility] Start: 03-20-2023 Registered Referred [facility] Start: 03-13-2023 End: 03-13-[address] [facility] Work Phone: Start: 03-13-2023 End: 03-13-2023 Departed Referred [facility] Start: 02-13-2023 End: 02-13-2023 Patient encounter procedure Apurva Bruno APRN.MANAGER PLAN Work Phone: Cerebrovascular Comment on above: Arterial ischemic st roke (HCC) (Primary Dx); Right hemiparesis (HCC); Primary hypertension; Occlusion and stenosis of basilar artery; Dyslipidemia, goal LDL below 70 Start: 02-10-2023 Registered Referred [facility] Start: 02-03-2023 End: 02-03-2023 Patient encounter procedure Griselda Murphy PA-C Work Phone: [facility] Comment on above: Esophageal stricture (Primary Dx) Start: 01-31-2023 End: 02-01-2023 ambulatory LASHANDA ALBRECHT Facility:[facility] Start: 01-31-2023 End: 01-31-2023 Patient encounter procedure Lashanda Albrecht APRN.MANAGER PLAN Work Phone: Urology Comment on above: Retention of urine ( Primary Dx); Urinary tract infection with hematuria, site unspecified Start: 01-13-2023 ambulatory Radha LambertMANAGER PLAN Work Phone: [facility] Comment on above: 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) (Primary Dx); Leg edema; Repeated falls; Acute urinary retention Start: 01-13-2023 Telemedicine consultation with patient Radha Ferreira APRN.MANAGER PLAN Work Phone: [facility] Start: 01-10-2023 End: 01-11-2023 ambulatory EVIN GARCIA Facility:[facility] Start: 01-10-2023 End: 01-10-2023 Patient encounter procedure Lashanda Albrecht DASHA.MANAGER PLAN Work Phone: Urology Comment on above: Transient cerebral i schemia, unspecified type (Primary Dx); Retention of urine; Urinary tract infection with hematuria, site unspecified Start: 01-08-2023 End: 01-08-2023 Subsequent hospital visit by physician Card Lab Stress [facility] Comment on above: Arterial ischemic st roke (HCC) [I63.9] Start: 01-02-2023 ambulatory Radha Lacy.MANAGER PLAN Work Phone: [facility] Comment on above: 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) (Primary Dx); Dysphasia; Benign essential HTN; Acute urinary retention; Leg edema Start: 01-02-2023 Telemedicine consultation with patient Radha Ferreira APRN.MANAGER PLAN Work Phone: [facility] Start: 12-27-2022 [facility] Radha Lacy.MANAGER PLAN Work Phone: [facility] Comment on above: 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) (Primary Dx); Dysphasia; Benign essential HTN; Adjustment disorder with mixed anxiety and depressed mood; Acute urinary retention Start: 12-26-2022 ambulatory Radha Lacy.MANAGER PLAN Work Phone: [facility] Comment on above: OPENED IN ERROR (Yani ruben Dx) Start: 12-26-2022 Telemedicine consultation with patient Radha Ferreira APRN.MANAGER PLAN Work Phone: [facility] Start: 12-23-2022 [facility] Radha LambertMANAGER PLAN Work Phone: [facility] Comment on above: 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) (Primary Dx); Dysphasia; Benign essential HTN; Adjustment disorder with mixed anxiety and depressed mood; Acute urinary retention Start: 12-20-2022 End: 12-21-2022 ambulatory EVIN Anitha GARCIA Facility:[facility] Start: 12-19-2022 End: 12-19-2022 Patient encounter procedure Apurva Bruno APRN.MANAGER PLAN Work Phone: Cerebrovascular Comment on above: Arterial ischemic st roke (HCC) (Primary Dx); Transient cerebral ischemia, unspecified type ; Hyperlipidemia, unspecified hyperlipidemia type; Intracranial atherosclerosis; Mixed hyperlipidemia; Adjustment disorder with mixed anxiety and depressed mood; Disturbance in sleep behavior; Right hemiparesis (HCC) Start: 11-16-2022 End: 12-09-2022 Subsequent hospital visit by physician Suha Brown MD Work Phone: [facility] Start: 11-10-2022 ambulatory Myrna Reyes MD Work Phone: Neurosurgery Comment on above: Arterial ischemic st roke (HCC) (Primary Dx) Start: 11-10-2022 Telemedicine consultation with patient Myrna Reyes MD Work Phone: [facility] Procedures Date Procedure Procedure Detail Performing [...] metabolic pane l calcium total Samy Thomas [employer] Work Phone: Start: 11-25-2022 Basic metabolic pane l calcium total Samy Thomas [employer] Work Phone: Start: 11-21-2022 Basic metabolic pane l calcium total Samy Thomas [employer] Work Phone: Start: 11-18-2022 Basic metabolic pane l calcium total Ran Mckeon DO Work Phone: Plan of Treatment Date Care Activity Detail Author Start: 12-09-2025 DIABETES SCREEN DIABETES SCREEN [facility] Start: 12-09-2025 Diabetes Screening Diabetes Screening [facility] Start: 11-19-2024 End: 11-19-2024 Patient encounter procedure 11/19/2024 2:00 PM EDT Office Visit Urology [address] [place] [address] Lashanda Albrecht, [employer].MANAGER PLAN [address] [place], [place] [id number] 1 year follow up Urology Comment on above: 1 year follow up Start: 11-11-2024 BP Controlled (<130/80) BP Controlled (<130/80) [facility] Start: 05-23-2024 End: 08-22-2024 Bacteria identified in Urine by Culture URINE CULTURE Microbiology Routine Urinary tract infection with hematuria, site unspecified Expected: 05/23/2024, Expires: 08/22/[address] [facility] Work Phone: Comment on above: Expected: 05/23/2024, Expires: Start: 05-13-2024 End: 05-13-2024 Patient encounter procedure 05/13/2024 2:30 PM EST Office Visit Cerebrovascular [address] [place] [address] Apurva Bruno, [employer]AC[employer].MANAGER PLAN [address] [address] 6 month follow up Cerebrovascular Comment on above: 6 month follow up Start: 04-14-2024 BP Controlled (<130/80) BP Controlled (<130/80) [facility] Start: 02-14-2024 BP CONTROLLED (<130/80) BP CONTROLLED (<130/80) [facility] Start: 02-04-2024 BP CONTROLLED (<130/80) BP CONTROLLED (<130/80) [facility] Start: 02-01-2024 BP CONTROLLED (<130/80) BP CONTROLLED (<130/80) [facility] Start: 01-14-2024 BP CONTROLLED (<130/80) BP CONTROLLED (<130/80) [facility] Start: 01-11-2024 BP CONTROLLED (<130/80) BP CONTROLLED (<130/80) [facility] Start: 12-28-2023 BP CONTROLLED (<130/80) BP CONTROLLED (<130/80) [facility] Start: 12-24-2023 BP CONTROLLED (<130/80) BP CONTROLLED (<130/80) [facility] Start: 11-21-2023 End: 11-21-2023 Patient encounter procedure 11/21/2023 1:45 PM EDT Office Visit Urology [address] [place] [address] Lashanda Albrecht, DASHA.MANAGER PLAN [address] [place] [address] 6 month f/u Urology Comment on above: 6 month f/u Start: 10-09-2023 Covid-19 Vaccine ( season) Covid-19 Vaccine () [facility] Start: 07-07-2023 Advance Directive Discussion Advance Directive Discussion [facility] Start: 07-07-2023 Behavioral Health Screening Behavioral Health Screening [facility] Start: 04-16-2023 End: 06-16-2023 Bacteria identified in Urine by Culture URINE CULTURE Microbiology Routine Retention of urine Expected: 04/16/2023, Expires: 06/16/[address] [facility] Work Phone: Comment on above: Expected: 04/16/2023, Expires: Start: 03-07-2023 Influenza vaccination [facility] Start: 02-18-2023 End: 04-20-2023 Lipid 1996 panel - Serum or Plasma LIPID PANEL BASIC Lab Routine Hyperlipidemia, unspecified hyperlipidemia type Expected: 02/18/2023, Expires: 04/20/[address] [facility] Work Phone: Comment on above: Expected: 02/18/2023, Expires: 3 Start: 01-10-2023 End: 03-12-2023 Bacteria identified in Urine by Culture URINE CULTURE Microbiology Routine Retention of urine Urinary tract infection with hematuria, site unspecified Expected: 01/10/2023, Expires: 03/12/[address] [facility] Work Phone: Comment on above: Expected: 01/10/2023, Expires: 3 Start: 07-07-2022 ADVANCE DIRECTIVE DISCUSSION ADVANCE DIRECTIVE DISCUSSION [facility] Start: 07-07-2022 DEPRESSION ASSESSMENT DEPRESSION ASSESSMENT [facility] Start: 2018 RSV Vaccine (1 - 1-dose 75+ series) RSV Vaccine (1 - 1-dose 75+ series) [facility] Start: 05-08-2017 Pneumococcal Vaccine: 65+ (2 of 2 - PPSV23 or PCV20) Pneumococcal Vaccine: 65+ (2 of 2 - PPSV23 or PCV20) [facility] Start: 02-08-2008 BONE DENSITY BONE DENSITY [facility] Start: 02-08-2008 Bone Density Screening Bone Density Screening [facility] Start: 02-08-2008 Pneumococcal Vaccine: 65+ (1 - PCV) Pneumococcal Vaccine: 65+ (1 - PCV) [facility] Start: 02-08-2008 PNEUMOCOCCAL: 65+ (1 - PCV) PNEUMOCOCCAL: 65+ (1 - PCV) [facility] Start: 02-08-2008 Screening for osteoporosis Bone Density Screening [facility] Start: 2003 RSV Vaccine (1 - 1-dose 60+ series) RSV Vaccine (1 - 1-dose 60+ series) [facility] Start: 1993 SHINGRIX VACCINE (1 of 2) SHINGRIX VACCINE (1 of 2) [facility] Start: 1962 Urine microalbumin profile [facility] Start: 08-04-1961 ANNUAL PCP TEAM CHRONIC DISEASE VISIT ANNUAL PCP TEAM CHRONIC DISEASE VISIT [facility] Start: 1961 Anxiety Screening Anxiety Screening [facility] Start: 1961 BP CONTROLLED (<130/80) BP CONTROLLED (<130/80) [facility] Start: 1961 Depression Screening Depression Screening [facility] Start: 1943 COVID-19 VACCINE (#1) COVID-19 VACCINE (#1) [facility] EVENT MONITOR EVENT MONITOR Ca rdiology Routine Arterial ischemic stroke (HCC) Transient cerebral ischemia, unspecified type Ordered: 12/19/[address] [facility] Work Phone: Comment on above: Ordered: 12/19/2022 Thanh post-voiding residual urine&/bladder cap US MSR POST-VOID RESID URINE Procedures Routine Retention of urine Ordered: 01/10/[address] [facility] Work Phone: Comment on above: Ordered: 01/10/2023 [facility] Immunizations Immunization Date Immunization Notes Care Provider Thelma taylor 05-08-2016 influenza virus vacc ine, unspecified formulation Lashanda Albrecht APRN.CNP Work Phone: [facility] Payers Date Payer Category Payer Self-pay 2009 Unknown [id number] 2009 Unknown [id number] 2008 Medicare MEDICARE MEDICAR E A AND B [id number] 2008-Present [phone] [address] [address] [place] [address] Medicare [id number] 2008 Unknown [id number] Unknown [id number] Unknown [id number] Unknown [id number] Unknown [id number] Unknown [id number] Unknown [id number] Unknown [id number] Unknown [id number] Unknown [id number] [id number] Unknown [id number] [id number] Unknown [id number] [id number] Unknown [id number] [id number] Unknown [id number] Unknown [id number] [id number] Unknown [id number] Social History Date Type Detail Facility Start: 11-10-2022 Tobacco smoking stat us MAIS Never smoked tobacco [facility] Start: 11-10-2022 Tobacco use and exposure Smokeless tobacco non-user [facility] Start: 11-10-2022 End: 05-13-2024 Alcohol intake Lifetime non-drinker (finding) [facility] Start: 1945 Sex Assigned At Not on file [facility] Start: 11-13-2022 History SDOH Financial 5 [facility] Start: 11-13-2022 History SDOH Food Worry 1 [facility] Start: 11-13-2022 History SDOH Transpo rt Med 2 [facility] Start: 11-11-2022 End: 01-10-2023 History of Social function [facility] Work Phone: Start: 11-11-2022 End: 01-10-2023 Tobacco use panel [facility] Work Phone: How hard is it for y ou to pay for the very basics like food, housing, medical care, and heating Not hard at all [facility] Work Phone: (I/We) worried wheth er (my/our) food would run out before (I/we) got money to buy more. Never true [facility] Work Phone: In the past 12 month s, was there a time when you were not able to pay the mortgage or rent on time? No [facility] Work Phone: Start: 1945 Sex Assigned At Female [facility] Tobacco smoking stat [facility] Unknown if ever smoked [facility] Work Phone: Start: 09-10-2024 End: 10-26-2024 Sex Female (finding) [facility] Clinical Notes 11-10-2022 to 05-13-2024 Patient InstructionsApurva Bruno APRN.CNP - 05/13/2024 2:30 PM ESTAddendum Note - Lashanda Albrecht APRN.MANAGER PLAN - 11/21/2023 2:31 PM EDTBLashanda tran APRN.[facility] - 11/21/2023 2:10 PM EDT Note Date & Type Note Facility 05-13-2024 Instructions Apurva Bruno APRN.JANICE - 05/13/2024 3:02 PM EST Images from the original note were not included. Regarding your visit with Nurse Practitioner Apurva Bruno today at the [facility] Cerebrovascular Center we discussed the following: [...] if you have any questions Apurva Bruno [facility] Cerebrovascular [facility] Nurse Practitioner [place], [place] [address] Office: [phone] Appointments: [phone] Stroke Signs and Symptoms: *Stroke is a [...] diet rich in fruits and vegetables (https://www.nhlbi.nih.gov/educa tion/hqwn-hwzgtf-jcve) - Consider Mediterranean diet supplemented with nuts [...] an exercise program by a health home health care coordinator such as a physical therapist or cardiac [...] for their cardiovascular health Adapted from the [place] Heart Association/[place] Stroke Association: 2021 Guideline for the Prevention of Stroke in Patients With Stroke and Transient Ischemic Attack documented in this encounter [facility] 05-13-2024 History of Presen t illness Narrative CEREBROVASCULAR CENTER Established Visit Consultation is requested by: No referring provider defined for this encounter. PCP: Evin Garcia ([facility]) [place] [address] CEREBROVASCULAR HISTORY Myrna Saravia is a 77 year old female presenting for hospital discharge follow up. Admitted to [facility] 11/10-11/16/22. From discharge summary: 77-year-old female presented [facility] for acute onset of right upper extremity and right lower extremity weakness. Then was called and she was presented to [facility] where telestroke was called. She [...] -presents with her daughter Brooklynn -in different detention facility, moved about a week ago- [facility] in [place] -aphasia and dysarthria improving -she still cannot [...] getting any PT or other therapy at [facility] where she's living -hasn't received her brace from [employer], though did get fitted for it before [...] bedtime. MUCUS-CHEST CONGESTION 100 mg/5 mL syrup [employer] HEALTH 10 billion cell -200 mg capsule [...] which included preparing to see the patient, fqhe-vh-rcva patient care, completing clinical documentation, performing a medically appropriate examination, counseling and educating the patient/family/caregiver, and care coordination (not separately reported) SIGNATURE Apurva Bruno APRN.CNP CC No referring provider defined for this encounter. Evin Garcia ([facility]) [address] [place] [address] documented in this encounter [facility] 05-13-2024 Note HNO ID: [id number] Author: APURVA BRUNO APRN.CNP Service: ? Author Type: Nurse Practitioner Type: Progress Notes Filed: 05/14/2024 11:01 Note Text: CEREBROVASCULAR CENTER Established Visit Consultation is requested by: No referring provider defined for this encounter. PCP: Evin Almazan) [address] [place] [address] CEREBROVASCULAR HISTORY Myrna Saravia is a 77 year old female presenting for hospital discharge follow up. Admitted to [facility] 11/10-11/16/22. From discharge summary: 77-year-old female presented [facility] for acute onset of right upper extremity and right lower extremity weakness. Then was called and she was presented to [facility] where telestroke was called. She [...] received cardiac event monitor -started Remeron in [facility] for mood (crying, bouts of [...] -presents with her daughter Brooklynn -in different detention facility, moved about a week ago- [facility] in [place] -aphasia and dysarthria improving -she still cannot [...] and the right (more content not included)... [facility] 11-21-2023 Note HNO ID: [id number] Author: LASHANDA ALBRECHT APRN.MANAGER PLAN Service: ? Author Type: Nurse Practitioner Type: Progress Notes Filed: 11/21/2023 14:31 Note Text: ESTABLISHED PATIENT OFFICE VISIT HISTORY OF PRESENT ILLNESS Myrna Saravia is a 78 year old female who presents today in f/u. 04/14/23: Patient with a h/o urinary retention, UTI, CVA. Patient presents today in f/u. Patient now at [facility]. Recent UTI on 04/02/23. Finished a [...] during the day at the [facility]. Mostly has incontinence into her depends. Today's note: Patient with a h/o CVA, urinary retention, UTI. Patient is still residing at [facility]. Her last UTI was on 04/02/23. [...] (no units) Date Value 12/03/2022 Negative Specific Archer, Ur (no units) Date Value 12/03/2022 >=1.030 [...] mL syrup chlorthalidone (HYGROTON) 25 mg tablet [facility] 10 billion cell -200 mg [...] sooner if any issues. Lashanda Albrecht APRN.CNP [facility] 11-21-2023 Note Addended by: LASHANDA MITTAL on: 11/21/2023 02:31 PM Modules accepted: Orders [facility] 11-21-2023 Miscellaneous Notes Addended by: LASHANDA ALBRECHT on: 11/21/2023 02:31 PM Modules accepted: Orders documented in this encounter [facility] 11-21-2023 History of Presen t illness Narrative ESTABLISHED PATIENT OFFICE VISIT HISTORY OF PRESENT ILLNESS Myrna Saravia is a 78 year old female who presents today in f/u. 04/14/23: Patient with a h/o urinary retention, UTI, CVA. Patient presents today in f/u. Patient now at [facility]. Recent UTI on 04/02/23. Finished a [...] during the day at the [facility]. Mostly has incontinence into her depends. Today's note: Patient with a h/o CVA, urinary retention, UTI. Patient is still residing at [facility]. Her last UTI was on 04/02/23. [...] (no units) Date Value 12/03/2022 Negative Specific Archer, Ur (no units) Date Value 12/03/2022 >=1.030 [...] Lashanda Albrecht APRN.JANICE documented in this encounter [facility] 11-12-2023 Instructions Apurva Bruno APRN.CNP - 11/12/2023 1:28 PM EDT Images from the original note were not included. Regarding your visit with Nurse Practitioner pAurva Bruno today at the [facility] Cerebrovascular Center we discussed the following: [...] have any questions Apurva Bruno CNP [facility] Nurse Practitioner [place], [place] [address] Office: [phone] Appointments: [phone] Stroke Signs and Symptoms: *Stroke is a [...] eating plan - more information: https://www.heart.org/en/healthy -living/healthy-eating/eat-smart /nutrition-basics/qqo-iakq-wdp-l ifestyle-recommendations Smoking and Tobacco Use (including e-cigarettes) [...] regimen, may be considered Adopted from the [place] Stroke Association Attack : A Guideline for Healthcare Professionals From the [place] Heart Guidelines for the Prevention of Stroke in Patients With Stroke or Transient Ischemic - 2013 documented in this encounter [facility] 11-12-2023 History of Presen t illness Narrative CEREBROVASCULAR CENTER Established Visit Consultation is requested by: No referring provider defined for this encounter. PCP: Evin Garcia ([facility]) [place] [address] CEREBROVASCULAR HISTORY Myrna Saravia is a 77 year old female presenting for hospital discharge follow up. Admitted to [facility] 11/10-11/16/22. From discharge summary: 77-year-old female presented [facility] for acute onset of right upper extremity and right lower extremity weakness. Then was called and she was presented to [facility] where telestroke was called. She [...] -presents with her daughter Brooklynn -in different detention facility, moved about a week ago- [facility] in [place] -aphasia and dysarthria improving -she still cannot [...] getting any PT or other therapy at [facility] where she's living -hasn't received her brace from [employer], though did get fitted for it before [...] TUBE route daily at bedtime. lactobacillus rhamnosus (HongdianzhiboLLE) 10 billion cell capsule Take 1 capsule [...] Stroke of Undetermined etiology: Negative Evaluation Modified [place] Score: Score: 4 NIH Stroke Scale: LOC: [...] which included preparing to see the patient, uddw-yd-etnr patient care, completing clinical documentation, performing a medically appropriate examination, and counseling and educating the patient/family/caregiver SIGNATURE Apurva Bruno APRN.MANAGER PLAN CC No referring provider defined for this encounter. Evin Garcia ([facility]) [address] [place] [address] documented in this encounter [facility] 11-12-2023 Note HNO ID: [id number] Author: APURVA BRUNO APRN.CNP Service: ? Author Type: Nurse Practitioner Type: Progress Notes Filed: 11/12/2023 14:25 Note Text: CEREBROVASCULAR CENTER Established Visit Consultation is requested by: No referring provider defined for this encounter. PCP: Evin Garcia () [address] [place] [address] CEREBROVASCULAR HISTORY Myrna Saravia is a 77 year old female presenting for hospital discharge follow up. Admitted to [facility] 11/10-11/16/22. From discharge summary: 77-year-old female presented [facility] for acute onset of right upper extremity and right lower extremity weakness. Then was called and she was presented to [facility] where telestroke was called. She [...] -presents with her daughter Brooklynn -in different detention facility, moved about a week ago- [facility] in [place] -aphasia and dysarthria improving -she still cannot [...] Brooklynn -denies any (more content not included)... [facility] 04-15-2023 History of Past i llness Narrative Problem Noted Date Diagnosed Date Resolved Date Suspected stroke patient las t known to be well 2 to 3 hours ago 11/10/2022 11/10/2022 Stroke of uncertain pathology 11/10/2022 11/10/2022 documented as of this encounter (statuses as of 04/15/2023) [facility]10-09-2023 NoteHNO ID: [id number] Author: Lashanda Albrecht APRN.MANAGER PLAN Service: ? Author Type: Nurse Practitioner Type: Progress Notes Filed: 04/14/2023 3:56 PM Note Text: ESTABLISHED PATIENT OFFICE VISIT HISTORY OF PRESENT ILLNESS Myrna Saravia is a 78 year old female who presents today in f/u. Patient with a h/o urinary retention, UTI, CVA. Patient presents today in f/u. [facility]. Recent UTI on 04/02/23. Finished a [...] during the day at the [facility]. Mostly has incontinence into her depends. LAB [...] (no units) Date Value 12/03/2022 Negative Specific Archer, Ur (no units) Date Value 12/03/2022 >=1.030 [...] at bedtime. cefdinir (OMNICEF) 300 mg capsule [employer] [facility] 10 billion cell -200 mg [...] than half of todays over 40 minute ygtk-eb-jtlv office visit was spent in coun[facility] Instructions* Patient Instructions* Lashanda Albrecht APRN.CNP [...] urology with any questions. Lashanda Albrecht APRN.CNP [phone] documented in this [facility]10-09-[facility]23 History of Present illness Narrative* Lashanda Albrecht APRN.CNP - 04/14/2023 3:08 PM EDT ESTABLISHED PATIENT OFFICE VISIT HISTORY OF PRESENT ILLNESS Myrna Saravia is a 78 year old female who presents today in f/u. Patient with a h/o urinary retention, UTI, CVA. Patient presents today in f/u. Patient now at [facility]. Recent UTI on 04/02/23. Finished a [...] during the day at the [facility]. Mostly has incontinence into her depends. LAB [...] (no units) Date Value 12/03/2022 Negative Specific Archer, Ur (no units) Date Value 12/03/2022 >=1.030 [...] at bedtime. cefdinir (OMNICEF) 300 mg capsule [employer] D[facility]ESTIVE HEALTH 10 billion cell -200 mg [...] than half of todays over 40 minute afzd-hf-uayz office visit was spent in counselling/coordination of care documented in this [facility] History of Past illness Narrative* Problem Noted Date Diagnosed Date Resolved Date Suspected stroke patient las t known to be well 2 to 3 hours ago 11/10/2022 11/10/2022 Stroke of uncertain pathology 11/10/2022 11/10/2022 documented as of this encounter (statuses as of 02/14/2023) [facility]08-10-[facility] Instructions* Patient Instructions* Apurva Bruno APRN.CNP - 02/13/2023 2:51 PM EDT Images from the original note were not included. Regarding your visit with Nurse Practitioner Apurva Bruno today at the [facility] we discussed the following: [...] have any questions Apurva Bruno CNP [facility]bro[facility] Nurse Practitioner [place], [place] [address] Office: [phone] Appointments: [phone] Stroke Signs and Symptoms: *Stroke is a [...] Hypertension) eating plan - more information: https://www.heart.org/en/healthy-living/healthy-eating/eat-smart/nutrition-basic s/typ-pemj-fpb-lifestyle-recommendations Smoking and Tobacco Use (including e-cigarettes) - [...] regimen, may be considered Adopted from the [place] Stroke [employer] Attack : A Guideline for Healthcare Professionals Fromthe [place] Heart Guidelines for the Prevention of Stroke in Patients With Stroke or Transient Ischemic - 2013 documented in this encounterEast [facility]08-10-[facility]23 History of Present illness Narrative* Apurva Bruno APRN.CNP - 02/13/2023 2:00 PM EDT CEREBROV[facility]ULAR CENTER Established Visit Consultation is requested by: No referring provider defined for this encounter. PCP: Evin Garcia (Dorothy) [address] [place] [address] CEREBROVASCULAR HISTORY Myrna Saravia is a 77 year old female presenting for hospital discharge follow up. Admitted to [facility] 11/10-11/16/22. From discharge summary: 77-year-old female presented [facility] for acute onset of right upper extremity and right lower extremity weakness. Then was called and she was presented to [facility] where telestroke was called. She [...] -presents with her daughter Brooklynn -in different detention facility, moved about a week ago- [facility] in [place] -aphasia and dysarthria improving -she still cannot [...] touch. Coordination: Rapid alternating movements symmetric bilaterally. Dbkdxq-ss-ikda without dysmetria bilaterally. Gait: deferred LABS Cholesterol: [...] which included preparing to see the patient, lytt-bp-tnkn patient care, completing clinical documentation, obtaining and/or reviewing separately obtained history, performing a medically appropriate examination, counseling and educating the patient/family/caregiver, independently interpreting results (not separately reported), communicating results to the patient/family/caregiver, and care coordination (not separately reported) SIGNATURE Apurva Bruno APRN.MANAGER PLAN CC No referring provider defined for this encounter. Evin Garcia ([facility]) [address] [place] [address] documented in this encounterEast [facility] Hospital07-31-[facility]23 History of Past illness Narrative* Problem Noted Date Diagnosed Date Resolved Date Suspected stroke patient las t known to be well 2 to 3 hours ago 11/10/2022 11/10/2022 Stroke of uncertain pathology 11/10/2022 11/10/2022 documented as of this encounter (statuses as of 02/04/2023) [facility] History of Present illness Narrative* Griselda [...] mg capsule chlorthalidone (HYGROTON) 25 mg tablet [facility] 10 billion cell -200 mg [...] on the patient's daughters phone, report from [facility]. Patient denied all associated symptoms. She does [...] which included preparing to see the patient, bjie-gc-uagt patient care, completing clinical documentation, performing a medically appropriate examination, counseling and educating the patient/family/caregiver, and ordering medications, tests,or procedures. documented in this encounterEast [facility] Hospital07-28-2023 History of Past illness Narrative* Problem Noted Date Diagnosed Date Resolved Date Suspected stroke patient las t known to be well 2 to 3 hours ago 11/10/2022 11/10/2022 Stroke of uncertain pathology 11/10/2022 11/10/2022 documented as of this encounter (statuses as of 01/31/2023) [facility]23 NoteHNO ID: [id number] Author: Lashanda Albrecht APRN.JANICE Service: ? Author [...] (no units) Date Value 12/03/2022 Negative Specific Archer, Ur (no units) Date Value 12/03/2022 >=1.030 [...] syrup chlorthalidone (HYGROTON) 25 mg tablet [employer] [facility] 10 billion cell -200 mg capsule [...] not taking: Reported on 01/10/2023) lactobacillus rhamnosus (HongdianzhiboLLE) 10 billion cell capsule Take 1 capsule [...] 599.0, 599.70, ICD10: N39.0, R31.9 Lashanda Albrecht APRN.JANICELima [facility]07-28-2023 History of Present illness Narrative* Lashanda Albrecht APRN.MANAGER PLAN - 01/31/2023 1:49 PM EDT ESTABLISHED PATIENT [...] (no units) Date Value 12/03/2022 Negative Specific Archer, Ur (no units) Date Value 12/03/2022 >=1.030 [...] mL syrup chlorthalidone (HYGROTON) 25 mg tablet [employer] [facility] 10 billion cell -200 mg capsule [...] R31.9 Lashanda Albrecht APRN.JANICE documented in this encounterEast [facility] Hospital07-10-2023 History of Past illness Narrative* Problem Noted Date Diagnosed Date Resolved Date Suspected stroke patient las t known to be well 2 to 3 hours ago 11/10/2022 11/10/2022 Stroke of uncertain pathology 11/10/2022 11/10/2022 documented as of this encounter (statuses as of 01/13/2023) [facility]23 NoteHNO ID: [id number] Author: Radha Ferreira APRN.CNP Service: ? Author Type: Nurse Practitioner Type: Progress Notes Filed: 01/13/2023 11:12 AM Note Text: Connected Care Unit Progress Note Patient Name: Myrna Saravia Patient Facility: [facility] Admit Date 12/09/22 Level of Care: Skilled [...] Dept Phone 01/31/2023 1:15 PM LASHANDA ALBRECHT [facility] [phone] 02/03/2023 1:00 PM GRISELDA MURPHY [facility] [phone] 02/13/2023 2:00 PM APURVA BRUNO [facility] [phone] HPI: (Per hospital dc summary) 77-year-old female presented [facility] for acute onset of right upper extremity and right lower extremity weakness. Then was called and she was presented to [facility] where telestroke was called. She [...] her PCP and neurology. Pt was in [facility] from 11/16-12/09. During her stay, she participating with therapy and was started on remeron. Diet advanced. Interval HPI [facility] Had [facility] yesterday evening. Fell [...] labs, family/social history (u (more content not included)...[facility] History of Present illness Narrative* Radha Ferreira APRN.MANAGER PLAN - 01/13/2023 10:56 AM EDT Images from the original note were not included. Connected Care Unit Progress Note Patient Name: Myrna Saravia Patient Facility: [facility] Admit Date 12/09/22 Level of Care: Skilled [...] Dept Phone 01/31/2023 1:15 PM LASHANDA ALBRECHT [facility] [phone] 02/03/2023 1:00 PM GRISELDA MURPHY [facility] [phone] 02/13/2023 2:00 PM APURVA BRUNO [facility] [phone] HPI: (Per hospital dc summary) 77-year-old female presented [facility] for acute onset of right upper extremity and right lower extremity weakness. Then was called and she was presented to [facility] where telestroke was called. She [...] her PCP and neurology. Pt was in [facility] from 11/16-12/09. During her stay, she participating with therapy and was startedon remeron. Diet advanced. Interval HPI [facility] Had [facility] yesterday [facility]. Fell [...] today, 01/13/2023. Electronically signed by Radha Ferreira APRN.MANAGER PLAN documented in this encounterEast [facility] Hospital07-07-2023 History of Past illness Narrative* Problem Noted Date Resolved Date Suspected stroke patient las t known to be well 2 to 3 hours ago 11/10/2022 11/10/2022 Stroke of uncertain pathology 11/10/2022 documented as of this encounter (statuses as of 01/10/2023) [facility]-07[facility]23 NoteHNO ID: [id number] Author: Lashanda Albrecht APRN.CNP Service: ? Author [...] stroke. She is currently in rehab at [facility]. She does not want to have a [...] (no units) Date Value 12/03/2022 Negative Specific Archer, Ur (no units) Date Value 12/03/2022 >=1.030 Hemoglobin/Blood,Ur (no units) Date Value 12/03/2022 Negative pH, Urine (no units) Date Value 12/03/2022 6.0 Protein, Urine (no units) Date Value 12/03/2022 Negative Urobilinogen (no units) Date Value 12/03/2022 0.2 EU/dL Nitrites (no units) Date Value 12/03/2022 Negative Leuk Esterase (no units) Date Value 12/03/2022 Negative MEDICATIONS: chlorthalidone (HYGROTON) 25 mg tablet [facility] 10 billion cell -200 mg [...] of urine - ICD (more content not included)...[facility]07-07-20[facility] Instructions* Patient Instructions* Lashanda Albrecht APRN.CNP - 01/10/2023 1:48 PM EDT Orders for detention facility: - Please send a catheterized urine [...] Urology, we will treat if positive UTI. [phone] fax, attention: Lashanda Albrecht APRN.CNP documented in this encounterEast [facility] Hospital07-07-2023 History of Present illness Narrative* Lashanda CopeDASHA blanco.MANAGER PLAN - 01/10/2023 1:18 PM EDT ESTABLISHED PATIENT [...] stroke. She is currently in rehab at [facility]. She does not want to have a [...] (no units) Date Value 12/03/2022 Negative Specific Archer, Ur (no units) Date Value 12/03/2022 >=1.030 [...] than half of todays over 40 minute raew-kc-ufdt office visit was spent in counselling/coordination of care documented in this encounterEast [facility]07-06-2023 History of Past illness Narrative* Problem Noted Date Resolved Date Suspected stroke patient las t known to be well 2 to 3 hours ago 11/10/2022 11/10/2022 Stroke of uncertain pathology 11/10/2022 documented as of this encounter (statuses as of 01/09/2023) [facility]-05-[facility] Miscellaneous Notes* Patient Education - Kori Degroot RN - 01/08/2023 2:00 PM EDT Pt and daughter educated on event monitor. Stated understanding and able to demonstrate use. documented in this encounterEast [facility]07-02-2023 History of Past illness Narrative* Problem Noted Date Resolved Date Suspected stroke patient saul cr known to be well 2 to 3 hours ago 11/10/2022 11/10/2022 Stroke of uncertain pathology 11/10/2022 documented as of this encounter (statuses as of 01/06/2023) [facility] NoteHNO ID: [id number] Author: Radha Ferreira APRN.CNP Service: ? Author Type: Nurse Practitioner Type: Progress Notes Filed: 01/05/2023 10:29 PM Note Text: Connected Care Unit Progress Note Patient Name: Myrna Saravia Patient Facility: [facility] Admit Date 12/09/22 Level of Care: Skilled [...] LAB STRESS 2 BATH [facility]ST [phone] 01/10/2023 1:00 PM LASHANDA ALBRECHT [facility] [phone] 02/03/2023 1:00 PM GRISELDA MURPHY [facility] [phone] 02/13/2023 2:00 PM APURVA BRUNO [facility] [phone] HPI: (Per hospital dc summary) 77-year-old female presented [facility] for acute onset of right upper extremity and right lower extremity weakness. Then was called and she was presented to [facility] where telestroke was called. She [...] her PCP and neurology. Pt was in [facility] from 11/16-12/09. During her stay, she [...] 153 12/23 Na 143/ (more content not included)...[facility]06-29-[facility] History of Present illness Narrative* Radha Ferreira APRN.MANAGER PLAN - 01/02/2023 9:38 PM EDT Images from the original note were not included. Connected Care Unit Progress Note Patient Name: Myrna Saravia Patient Facility: [facility] Admit Date 12/09/22 Level of Care: Skilled [...] CARD LAB STRESS 2 BATH AG WEST [phone] 01/10/2023 1:00 PM LASHANDA ALBRECHT [facility] [phone] 02/03/2023 1:00 PM GRISELDA MURPHY [facility] [phone] 02/13/2023 2:00 PM APURVA BRUNO [facility] [phone] HPI: (Per hospital dc summary) 77-year-old female presented [facility] for acute onset of right upper extremity and right lower extremity weakness. Then was called and she was presented to [facility] where telestroke was called. She [...] her PCP and neurology. Pt was in [facility] from 11/16-12/09. During her stay, she [...] today, 01/02/2023. Electronically signed by Radha Ferreira APRN.MANAGER PLAN documented in this encounterEast [facility]06-27-2023 NoteHNO ID: [id number] Author: Radha Ferreira APRN.JANICE Service: ? Author Type: Nurse Practitioner Type: Progress Notes Filed: 01/01/2023 11:20 AM Note Text: Connected Care Unit Progress Note Patient Name: Myrna Saravia Patient Facility: [facility] Admit Date 12/09/22 Level of Care: Skilled [...] CARD LAB STRESS 2 BATH AG WEST [phone] 01/10/2023 1:00 PM LASHANDA ALBRECHT [facility] [phone] 02/03/2023 1:00 PM GRISELDA MURPHY [facility] [phone] 02/13/2023 2:00 PM APURVA BRUNO [facility] [phone] HPI: (Per hospital dc summary) 77-year-old female presented [facility] for acute onset of right upper extremity and right lower extremity weakness. Then was called and she was presented to [facility] where telestroke was called. She [...] her PCP and neurology. Pt was in [facility] from 11/16-12/09. During her stay, she [...] pain. Musculoskeletal: Positive fo (more content not included)...[facility]06-[facility] History of Past illness Narrative* Problem Noted Date Resolved Date Suspected stroke patient saul cr known to be well 2 to 3 hours ago 11/10/2022 11/10/2022 Stroke of uncertain pathology 11/10/2022 documented as of this encounter (statuses as of 12/30/2022) [facility] History of Past illness Narrative* Problem Noted Date Resolved Date Suspected stroke patient saul cr known to be well 2 to 3 hours ago 11/10/2022 11/10/2022 Stroke of uncertain pathology 11/10/2022 documented as of this encounter (statuses as of 12/30/2022) [facility] NoteHNO ID: [id number] Author: Radha Ferreira APRN.JANICE Service: ? Author Type: Nurse Practitioner Type: Progress Notes Filed: 12/29/2022 10:25 PM Note Text: Connected Care Unit Progress Note Patient Name: Myrna Saravia Patient Facility: [facility] Admit Date 12/09/22 Level of Care: Skilled [...] Dept Phone 01/10/2023 1:00 PM LASHANDA ALBRECHT [facility] [phone] 02/03/2023 1:00 PM GRISELDA MURPHY [facility] [phone] 02/13/2023 2:00 PM APURVA BRUNO [facility] [phone] HPI: (Per hospital dc summary) 77-year-old female presented [facility] for acute onset of right upper extremity and right lower extremity weakness. Then was called and she was presented to [facility] where telestroke was called. She [...] her PCP and neurology. Pt was in [facility] from 11/16-12/09. During her stay, she [...] family/social history (unchanged) Reviewed. (more content not included)...[facility] History of Present illness Narrative* Radha Ferreira APRN.MANAGER PLAN - 12/27/2022 10:06 PM EDT Images from the original note were not included. Connected Care Unit Progress Note Patient Name: Myrna Saravia Patient Facility: [facility] Admit Date 12/09/22 Level of Care: Skilled [...] Dept Phone 01/10/2023 1:00 PM LASHANDA ALBRECHT [facility] [phone] 02/03/2023 1:00 PM GRISELDA MURPHY [facility] [phone] 02/13/2023 2:00 PM APURVA BRUNO [facility] [phone] HPI: (Per hospital dc summary) 77-year-old female presented [facility] for acute onset of right upper extremity and right lower extremity weakness. Then was called and she was presented to [facility] where telestroke was called. She [...] her PCP and neurology. Pt was in [facility] from 11/16-12/09. During her stay, she [...] today, 12/27/2022. Electronically signed by Radha Ferreira APRN.MANAGER PLAN documented in this encounterEast [facility]06-[facility]23 History of Past illness Narrative* Problem Noted Date Resolved Date Suspected stroke patient las t known to be well 2 to 3 hours ago 11/10/2022 11/10/2022 Stroke of uncertain pathology 11/10/2022 documented as of this encounter (statuses as of 12/25/2022) [facility]23 NoteHNO ID: [id number] Author: Radha Ferreira APRN.CNP Service: ? Author Type: Nurse Practitioner Type: Progress Notes Filed: 12/24/2022 10:20 AM Note Text: Connected Care Unit Progress Note Patient Name: Myrna Saravia Patient Facility: [facility] Admit Date 12/09/22 Level of Care: Skilled [...] Dept Phone 01/10/2023 1:00 PM LASHANDA ALBRECHT [facility] [phone] 02/03/2023 1:00 PM GRISELDA MURPHY [phone] 02/13/2023 2:00 PM APURVA BRUNO [facility] [phone] HPI: (Per hospital dc summary) 77-year-old female presented [facility] for acute onset of right upper extremity and right lower extremity weakness. Then was called and she was presented to [facility] where telestroke was called. She [...] her PCP and neurology. Pt was in [facility] from 11/16-12/09. During her stay, she [...] any uncontrolled pain exacerbatio (more content not included)...[facility] History of Past illness Narrative* Problem Noted Date Resolved Date Suspected stroke patient las t known to be well 2 to 3 hours ago 11/10/2022 11/10/2022 Stroke of uncertain pathology 11/10/2022 documented as of this encounter (statuses as of 12/24/2022) [facility]23 NoteHNO ID: [id number] Author: Radha Ferreira APRN.MANAGER PLAN Service: ? Author Type: Nurse Practitioner Type: Progress Notes Filed: 12/23/2022 9:44 PM Note Text: Connected Care Unit Progress Note Patient Name: Myrna Saravia Patient Facility: [facility] Admit Date 12/09/22 Level of Care: Skilled [...] Dept Phone 01/10/2023 1:00 PM LASHANDA ALBRECHT [facility] [phone] 02/03/2023 1:00 PM GRISELDA MURPHY [facility] [phone] 02/13/2023 2:00 PM APURVA BRUNO [facility] [phone] HPI: (Per hospital dc summary) 77-year-old female presented [facility] for acute onset of right upper extremity and right lower extremity weakness. Then was called and she was presented to [facility] where telestroke was called. She [...] her PCP and neurology. Pt was in [facility] from 11/16-12/09. During her stay, she [...] (unchanged) Reviewed. Refer to (more content not included)...[facility] History of Present illness Narrative* Radha Ferreira APRN.MANAGER PLAN - 12/23/2022 9:34 PM EDT Images from the original note were not included. Connected Care Unit Progress Note Patient Name: Myrna Saravia Patient Facility: [facility] Admit Date 12/09/22 Level of Care: Skilled [...] Phone 01/10/2023 1:00 PM VINAY LASHANDA SF [facility] [phone] 02/03/2023 1:00 PM GRISELDA MURPHY [facility] [phone] 02/13/2023 2:00 PM APURVA BRUNO [facility] [phone] HPI: (Per hospital dc summary) 77-year-old female presented [facility] for acute onset of right upper extremity and right lower extremity weakness. Then was called and she was presented to [facility] where telestroke was called. She [...] her PCP and neurology. Pt was in [facility] from 11/16-12/09. During her stay, she [...] today, 12/23/2022. Electronically signed by Radha Ferreira APRN.MANAGER PLAN documented in this encounterEast [facility]06-16-2023 NoteHNO ID: [id number] Author: Lasahnda Albrecht APRN.JANICE Service: ? Author Type: Nurse [...] stroke. She is currently in rehab at [facility]. She does not want to have a [...] (no units) Date Value 12/03/2022 Negative Specific Archer, Ur (no units) Date Value 12/03/2022 >=1.030 [...] Back: Normal. ASSESSMENT/PLAN: 1. 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 Retention of urine - ICD9: 788.20, ICD10: R33.9 -Macrobid x10 days sent to rehab pharmacy. -We will continue PVR checks/straight caths every 6 hours. -If PVR/straight cath greater than 750, will discuss placement of a Norton catheter. -Follow-u (more content not included)...[facility]06-15-2023 Instructions* Patient Instructions* Apurva Bruno APRN.CNP - 12/19/2022 12:00 PM EDT Images from the original note were not included. Regarding your visit with Nurse Practitioner Apurva Bruno today [facility] we discussed the following: [...] have any questions Apurva Bruno CNP Cerebrovascular [facility] Nurse Practitioner [place], [place] [address] Office: [phone] Appointments: [phone] Stroke Signs and Symptoms: *Stroke is a [...] Hypertension) eating plan - more information: https://www.heart.org/en/healthy-living/healthy-eating/eat-smart/nutrition-basic s/qry-dtzi-qhv-lifestyle-recommendations Smoking and Tobacco Use (including e-cigarettes) - [...] regimen, may be considered Adopted from the [place] [employer] Attack : A Guideline for Healthcare Professionals Fromthe [place] Heart Guidelines for the Prevention of Stroke in Patients With Stroke or Transient Ischemic - 2013 documented in this encounterEast [facility]06[facility] History of Present illness Narrative* Apurva Bruno APRN.CNP - 12/19/2022 11:30 AM EDT CEREBROVASCULAR CENTER Established Visit Consultation is requested by: No referring provider defined for this encounter. PCP: Evin Garcia (Dorothy) [address] [place] [address] CEREBROVASCULAR HISTORY Myrna Saravia is a 77 year old female presenting for hospital discharge follow up. Admitted to [facility] 11/10-11/16/22. From discharge summary: 77-year-old female presented [facility] for acute onset of right upper extremity and right lower extremity weakness. Then was called and she was presented to [facility] where telestroke was called. She [...] touch. Coordination: Rapid alternating movements symmetric bilaterally. [id number] without dysmetria bilaterally. Gait: deferred LABS Cholesterol: [...] Disease w/o Stroke Event: Intracranial Stenosis Modified [place] Score: Score: 4 IMPRESSION Acute infarcts left [...] which included preparing to see the patient, [id number] patient care, completing clinical documentation, obtaining and/or reviewing separately obtained history, performing a medically appropriate examination, counseling and educating the patient/family/caregiver, ordering medications, tests, or procedures, independently interpreting results (not separately reported), communicating results to the patient/family/caregiver, and care coordination (not separately reported) SIGNATURE Apurva Bruno APRN.JANICE CC No referring provider defined for this encounter. Evin Garcia (David) [address] [place] [address] documented [facility] NoteHNO ID: [id number] Author: Radha Ferreira APRN.CNP Service: ? Author Type: Nurse Practitioner Type: Progress Notes Filed: 12/18/2022 9:49 AM Note Text: Connected Care Unit Progress Note Patient Name: Myrna Saravia Patient Facility: [facility] Admit Date 12/09/22 Level of Care: Skilled [...] Dept Phone 12/19/2022 11:30 AM APURVA BRUNO [facility] [phone] HPI: (Per hospital dc summary) 77-year-old female presented [facility] for acute onset of right upper extremity and right lower extremity weakness. Then was called and she was presented to [facility] where telestroke was called. She [...] her PCP and neurology. Pt was in [facility] from 11/16-12/09. During her stay, she [...] current medications, most recent labs, family/social history ([facility] (more content not included)...[facility]06-12-2023 NoteHNO ID: [id number] Author: aRdha Ferreira APRN.JANICE Service: ? Author Type: Nurse Practitioner Type: Progress Notes Filed: 12/17/2022 1:09 PM Note Text: Connected Care Unit Progress Note Patient Name: Myrna Saravia Patient Facility: [facility] Admit Date 12/09/22 Level of Care: Skilled [...] Phone 12/19/2022 11:30 AM CODY APURVA POB [phone] HPI: (Per hospital dc summary) 77-year-old female presented [facility] for acute onset of right upper extremity and right lower extremity weakness. Then was called and she was presented to [facility] where telestroke was called. She [...] her PCP and neurology. Pt was in [facility] from 11/16-12/09. During her stay, she [...] dry since 2AM when she was cathed. APARTMENT LOCATOR in room to assist pt up to [...] is not in acute (more content not included)...[facility]05-25-2023 NoteHNO ID: [id number] Author: Lucero Barajas PA-C Service: ? Author Type: Physician Paper Cone Maker Type: Progress Notes Filed: 11/28/2022 2:57 PM [...] 11/13/22 as recommended. Actionable Finding addressed. 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 Heena Last Known [...] a telestroke. Thank you for contacting the [facility]. I appreciate the opportunity for allowing me to participate in Myrna Saravia's care. Please feel free to contact me and/or the [facility] at any time if you have any further questions or need additional assistance. Myrna Reyes MD November 10, 2022 6:19 PM documented in this encounterEast [facility]05-07-[facility]23 History of Past illness Narrative* Problem Noted Date Resolved Date Suspected stroke patient las t known to be well 2 to 3 hours ago 11/10/2022 11/10/2022 Stroke of uncertain pathology 11/10/2022 documented as of this encounter (statuses as of 12/09/2022) [facility] Diagnosis Arterial ischemic stroke (HCC)- Primary Unspecified cerebral artery occlusion with cerebral infarction documented in this encounter [facility] Diagnosis 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 Dysphasia Other speech disturbance Benign essential HTN Essential hypertension, benign Adjustment disorder with mixed anxiety and depressed mood Acute urinary retention Other specified retention of urine documented in this encounter [facility] Diagnosis Arterial ischemic stroke (HCC)- Primary Unspecified cerebral artery occlusion with cerebral infarction Transient cerebral ischemia, unspecified type Hyperlipidemia, unspecified hyperlipidemia type Intracranial atherosclerosis Cerebral atherosclerosis Mixed hyperlipidemia Adjustment disorder with mixed anxiety and depressed mood Disturbance in sleep behavior Sleep disturbance, unspecified Right hemiparesis (HCC) Hemiplegia, unspecified, affecting unspecified side documented in this encounter [facility]* Diagnosis OPENED IN ERROR- Primary To allow closing an encounter opened in error (used in SmartSet) documented in this encounter [facility]* Diagnosis 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 Dysphasia Other speech disturbance Benign essential HTN Essential hypertension, benign Acute urinary retention Other specified retention of urine Leg edema Edema documented in this encounter [facility]* Diagnosis Transient cerebral ischemia, unspecified type- Primary Retention of urine Retention of urine, unspecified Urinary tract infection with hematuria, site unspecified [facility] Diagnosis 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 Leg edema Edema Repeated falls Other symptoms involving nervous and musculoskeletal systems Acute urinary retention Other specified retention of urine [facility]* Diagnosis Retention of urine- Primary Retention of urine, unspecified Urinary tract infection with hematuria, site unspecified documented in this encounter [facility]* Diagnosis Esophageal stricture- Primary Stricture and stenosis of esophagus documented in this encounter [facility]* Diagnosis Arterial ischemic stroke (HCC)- Primary Unspecified cerebral artery occlusion with cerebral infarction Right hemiparesis (HCC) Hemiplegia, unspecified, affecting unspecified side Primary hypertension Unspecified essential hypertension 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 without mention of cerebral infarction Dyslipidemia, goal LDL below 70 Other and unspecified hyperlipidemia documented in this encounter [facility] noteNo assessment information availableWMagruder Memorial Hospital Work Phone: Evaluation note* Diagnosis Retention of urine- Primary Retention of urine, unspecified Urinary tract infection with hematuria, site unspecified documented in this encounter [facility]* Diagnosis Aphasia as late effect of cerebrovascular accident- Primary Aphasia, late effect of cerebrovascular disease Hemiparesis affecting right side as late effect of cerebrovascular accident (HCC) Hemiplegia affecting unspecified side, late effect of cerebrovascular disease Intracranial atherosclerosis Cerebral atherosclerosis Primary hypertension Unspecified essential hypertension Dyslipidemia, goal LDL below 70 Other and unspecified hyperlipidemia Persistent depressive disorder documented in this encounter [facility]* Diagnosis Retention of urine- Primary Retention of urine, unspecified Urinary tract infection with hematuria, site unspecified documented in this encounter [facility]* Diagnosis Cerebrovascular accident (CVA), unspecified [...] and unspecified hyperlipidemia documented in this encounter [facility] for referral (narrative)No reason for referral information availableWMagruder Memorial Hospital Work Phone: Advance Directives No Advanced Directives Records FoundDocuments on File Type Date Recorded Patient Filling Separator Expl anation Advance Directive(s) 11/12/2022 1:50 PM [...] Reason for Visit Chief Complaint LAB WORK HALFWAY LAB WORK Chief Complaint LAB WORK HALFWAY LAB WORK LABWORK Chief Complaint LAB WORK HALFWAY LAB WORK HALFWAY LABWORK LABWORK HALFWAY LAB WORK LABWORK Chief Complaint HALFWAY LABWORK LABWORK HALFWAY LAB WORK LABWORK HALFWAY LAB WORK Chief Complaint Admit Date HALFWAY LAB WORK June 02 5:00am LABWORK August 04, 2024 5 :00am Chief Complaint Admit Date LABWORK August 04, 2024 5 :00am HALFWAY LAB WORK September 07, 2024 5: 00am Chief Complaint Admit Date LABWORK August 04, 2024 5 :00am HALFWAY LAB WORK September 07, 2024 5: 00am HALFWAY LAB WORK October 01, 2024 5 :00am Chief Complaint Admit Date LABWORK August 04, 2024 5 :00am HALFWAY LAB WORK September 07, 2024 5: 00am HALFWAY LAB WORK October 01, 2024 5 :00am HALFWAY LAB WORK October 06, 2024 5: 00am [...] or prosecute any alcohol or drug abuse patient.[facility] HospitalIn the event this information is protected by the Federal Confidentiality of Alcohol and Drug Abuse Patient Records regulations: The Federal rules restrict any use of the information to criminally investigate or prosecute any alcohol or drug abuse patient.[facility] HospitalIn the event this information is protected by the Federal Confidentiality of Alcohol and Drug Abuse Patient Records regulations: The Federal rules restrict any use of the information to criminally investigate or prosecute any alcohol or drug abuse patient.[facility] HospitalIn the event this information is protected by the Federal Confidentiality of Alcohol and Drug Abuse Patient Records regulations: The Federal rules restrict any use of the information to criminally investigate or prosecute any alcohol or drug abuse patient.[facility] HospitalIn the event this information is protected by the Federal Confidentiality of Alcohol and Drug Abuse Patient Records regulations: The Federal rules restrict any use of the information to criminally investigate or prosecute any alcohol or drug abuse patient.[facility] HospitalIn the event this information is protected by the Federal Confidentiality of Alcohol and Drug Abuse Patient Records regulations: The Federal rules restrict any use of the information to criminally investigate or prosecute any alcohol or drug abuse patient.[facility] HospitalIn the event this information is protected by the Federal Confidentiality of Alcohol and Drug Abuse Patient Records regulations: The Federal rules restrict any use of the information to criminally investigate or prosecute any alcohol or drug abuse patient.[facility] HospitalIn the event this information is protected by the Federal Confidentiality of Alcohol and Drug Abuse Patient Records regulations: The Federal rules restrict any use of the information to criminally investigate or prosecute any alcohol or drug abuse patient.[facility] HospitalIn the event this information is protected by the Federal Confidentiality of Alcohol and Drug Abuse Patient Records regulations: The Federal rules restrict any use of the information to criminally investigate or prosecute any alcohol or drug abuse patient.[facility] HospitalIn the event this information is protected by the Federal Confidentiality of Alcohol and Drug Abuse Patient Records regulations: The Federal rules restrict any use of the information to criminally investigate or prosecute any alcohol or drug abuse patient.[facility] HospitalIn the event this information is protected by the Federal Confidentiality of Alcohol and Drug Abuse Patient Records regulations: The Federal rules restrict any use of the information to criminally investigate or prosecute any alcohol or drug abuse patient.[facility] HospitalIn the event this information is protected by the Federal Confidentiality of Alcohol and Drug Abuse Patient Records regulations: The Federal rules restrict any use of the information to criminally investigate or prosecute any alcohol or drug abuse patient.[facility] HospitalIn the event this information is protected by the Federal Confidentiality of Alcohol and Drug Abuse Patient Records regulations: The Federal rules restrict any use of the information to criminally investigate or prosecute any alcohol or drug abuse patient.[facility] HospitalIn the event this information is protected by the Federal Confidentiality of Alcohol and Drug Abuse Patient Records regulations: The Federal rules restrict any use of the information to criminally investigate or prosecute any alcohol or drug abuse patient.[facility] HospitalIn the event this information is protected by the Federal Confidentiality of Alcohol and Drug Abuse Patient Records regulations: The Federal rules restrict any use of the information to criminally investigate or prosecute any alcohol or drug abuse patient.[facility] HospitalIn the event this information is protected by the Federal Confidentiality of Alcohol and Drug Abuse Patient Records regulations: The Federal rules restrict any use of the information to criminally investigate or prosecute any alcohol or drug abuse patient.[facility] HospitalIn the event this information is protected by the Federal Confidentiality of Alcohol and Drug Abuse Patient Records regulations: The Federal rules restrict any use of the information to criminally investigate or prosecute any alcohol or drug abuse patient.[facility] Care Teams (unrecognized sec tion and content) Foot Orthopedist Relationship Specialty Start Date End Date Evin Garcia MD [address] [place] [address] PCP - General Family Medicine 11/10/22 Foot Orthopedist Relationship Specialty Start Date End Date Evin Garcia MD [address] [place] [phone] PCP - General Family Medicine 11/10/22 Foot Orthopedist Relationship Specialty Start Date End Date Evin Garcia MD [address] [place] [address] PCP - General Family Medicine 11/10/22 Foot Orthopedist Relationship Specialty Start Date End Date Evin Garcia MD [address] [place] [address] PCP - General Family Medicine 11/10/22 Foot Orthopedist Relationship Specialty Start Date End Date Evin Garcia MD [address] [place] [phone] PCP - General Family Medicine 11/10/22 Foot Orthopedist Relationship Specialty Start Date End Date Evin Garcia MD [address] [place] [phone] PCP - General Family Medicine 11/10/22 Foot Orthopedist Relationship Specialty Start Date End Date Evin Garcia MD [address] [place] [phone] PCP - General Family Medicine 11/10/22 Foot Orthopedist Relationship Specialty Start Date End Date Evin Garcia MD [address] [place] [phone] PCP - General Family Medicine 11/10/22 Foot Orthopedist Relationship Specialty Start Date End Date Evin Garcia MD [address] [place] [phone] PCP - General Family Medicine 11/10/22 Foot Orthopedist Relationship Specialty Start Date End Date vEin Garcia MD [address] [place] [phone] PCP - General Family Medicine 11/10/22 Team [...] HAWK Attending Provider, Referring Provi shawnee Active Foot Orthopedist Relationship Specialty Start Date End Date Evin Garcia MD [address] [place] [phone] PCP - General Family Medicine 11/10/22 Foot Orthopedist Relationship Specialty Start Date End Date Evin Garcia MD [address] [place] [phone] PCP - General Family Medicine 11/10/22 Foot Orthopedist Relationship Specialty Start Date End Date Evin Garcia MD [address] [place] [phone] PCP - General [facility] Medicine 11/10/22 Team Status: Active Member Role Status Dates [facility] Attending Provider Active Start: June 02, 2024 Team Status: Inactive Member Role Status Dates Marcos HAWK Attending Provider Active Sta rt: August 04, 2024 End: August 04, 2024 Team Status: Active Member Role Status Dates [facility] Attending Provider Active Start: September 07, 2024 Team Status: Inactive Member Role Status Dates [facility] Attending Provider Active Start: September 07, [...] and culture after last appointment, treated by group home. Waiting for repeat culture results. Reason Comments [...] section and content) DATE CREATED AUTHOR 11/24/2023 [facility] DATE CREATED AUTHOR AUTHOR'S ORGANIZ ATION 05/15/2024 [facility] DATE CREATED AUTHOR AUTHOR'S ORGANIZ ATION 12/09/2024 [facility] FOR RECORDS PERTAINING TO PATIENTS WHO [...] BE BASED ON THE PRIMARY CLINICAL RECORDS. [employer] provides no warranty or guarantee of the accuracy or completeness of information in this document.
[2024-12-15 08:44] LABS: Pro- Brain NATRIURETIC PEPTIDE 202 pg/mL (<=1800)
== END ==
LOC: OLS.SANC 05:00
DX: I10 Essential (primary) hypertension (principal); E78.5 Hyperlipidemia, unspecified
CPT/HCPCS: 36415; 83880

== ENCOUNTER → 2025-03-10 | Outpatient (REF) | payer MEDICARE, BC, SELFPAY | LOC: OLS.SANC 05:00 | DX: I10 Essential (primary) hypertension (principal); E11.9 Type 2 diabetes mellitus without complications; E78.5 Hyperlipidemia, unspecified | CPT/HCPCS: 36415; 83036 ==

== ENCOUNTER → 2025-06-21 04:00 | Outpatient (REF) | payer MEDICARE, BC, SELFPAY ==
[2025-06-21 09:29] LABS: Hematocrit 39.1 % (37-47); Hemoglobin 12.7 g/dL (12.0-15.0); Mean Corp Hgb Conc 32.5 g/dL (32-36); Mean Corpuscular Volume 92.2 fL (81-99); Mean Platelet Vol. 10.0 fl (6.2-12.0); POSITIVE COUNT YES; RBC Distribution Width CV 13.3 % (11.6-14.6); RBC Distribution Width SD 45.7 fl (35.1-43.9); Red Blood Count 4.24 M/mm3 (4.2-5.4); White Blood Count 5.2 K/mm3 (4.4-11.0)
[2025-06-21 09:35] LABS: Scan Indicated on CBC? Y/N YES- FLAGS NOTED
[2025-06-21 09:47] LABS: AST(SGOT) 14 U/L (<=31); Alanine Aminotransfer ALT/SGPT 9 U/L (<=34); Albumin, Serum 3.4 g/dL (3.4-4.8); Alkaline Phosphatase 85 U/L (35-104); Anion Gap 9 (5-15); BUN 21 mg/dL (4-19); BUN/Creat Ratio 19.7 RATIO (10-20); Calcium,Total 8.9 mg/dL (7.6-11.0); Carbon Dioxide 26.2 mmol/L (21.0-32.0); Chloride 106 mmol/L (98-108); Globulin 2.7 g/dL (2.2-4.2); Glucose 101 mg/dL (70-99); Potassium 3.6 mmol/L (3.3-5.1); Vitamin D,25 Hydroxy 33.9 ng/mL (30-100)
== END ==
LOC: OLS.SANC 04:00
DX: N18.31 Chronic kidney disease, stage 3a (principal)
CPT/HCPCS: 36415; 80053; 82306; 84443; 85027